=== PATIENT | female | born 1950 | race Caucasian/White ===

== ENCOUNTER 2017-05-20 18:59 | Inpatient (IN) | payer MEDICARE ==
[2017-05-20] VITALS (7 sets, daily range): BP systolic 94–127; BP diastolic 50–64; PULSE 81–89; RESP 28; TEMP 98–99.3; O2SAT 95–98
[~2017-05-20] VITALS: Ht 157.5 cm; Wt 130.5 kg
[2017-05-20] MEDS ORDERED: SODIUM CHLORIDE 0.9% FLUSH 5 ML FLUSH IV FLUSH PRN (19:30)
[2017-05-20] MEDS ORDERED: NALOXONE HCL 0.4 MG/ML AMP IV PUSH PRN (19:30)
[2017-05-20] MEDS ORDERED: PIPERACIL-TAZO 4.5 GM PREMIX 100 ML IV ONE (19:30)
[2017-05-20] MEDS ORDERED: SODIUM CHLORID 0.9% 500 ML INJ 500 ML IV ONE ×2 (19:30)
[2017-05-20] MEDS ORDERED: LISI10TA PO (19:32)
[2017-05-20] MEDS ORDERED: GLIM1TAB PO (19:32)
[2017-05-20] MEDS ORDERED: METF1000 PO (19:32)
[2017-05-20] MEDS ORDERED: NOVOLOGMXP SQ (19:34)
--- NOTE | 2017-05-20 19:34 | PD ---
HPI Chief Complaint: Altered Mental Status Time Seen by Provider: 19:28 Travel History International Travel<30 days: No Contact w/Intl Traveler<30days: No Traveled to known affect area: No History of Present Illness HPI 66-year-old female presents to the emergency department by EMS transport from her residence. Patient is confused. Patient is lethargic. Patient reportedly was recently seen today at an urgent care and received an injection for low back pain. Patient here denies head pain chest pain shortness of breath abdominal pain or extremity pain. Patient does complain of low back pain. at bedside states that they're visiting from out of state for the past 3 months and will be returning back to their home state in the week. reports patient has chronic low back pain but this exacerbated over the last 24 hours starting yesterday morning. Patient was seen earlier today by her chiropractor for an adjustment and then was referred to an urgent care. Patient reportedly had a fever at the chiropractor's office and felt cold and clammy. At the urgent care patient was evaluated and reportedly had an injection of a nonsteroidal medication as she is diabetic and he did not want to give her a steroid injection. Patient went home about 1:00 PM she was drowsy so sat down in a chair and fell asleep according to the . He tried to awaken her at 4:30 and noticed that she was confusional and lethargic. He attempted to continue to awaken her over the next 2-3 hours and because she was not improving decided finally to call EMS to transport her to the emergency room. Patient and spouse denied any recent injury or fall. Patient was ambulatory this morning but this evening has difficulty elevating her lower extremities. There is been no report of any bladder or bowel incontinence or dysfunction. Patient's blood sugar in the emergency department was 179. Patient has history of hypertension dyslipidemia diabetes and chronic back pain. Patient is unable to relay all of her medications but takes no blood thinning agents and does not know her medications. Both patient and spouse tonight patient being on any narcotic medication or antianxiety or muscle relaxant medications. [facility] Past Medical History Narrative Medical Diabetes hypertension dyslipidemia no tobacco use ; nursing notes reviewed Diabetes: Yes Patient Takes Glucophage: Yes Hypertension: Yes Tetanus Vaccination: Unknown Influenza Vaccination: No Past Surgical History Section: Yes Social History Alcohol Use: No Tobacco Use: No Substance Use: No Allergies-Medications (Allergen,Severity, Reaction): Coded Allergies: No Known Allergies (Unverified , 05/20/17) Reported Meds & Prescriptions Reported Meds & Active Scripts Active Reported Novolog Mix 70-30 Inj (Insulin Aspart Prota 70%/Aspart 30%) 1,000 Unit/10 Ml Vial Unknown Dose SQ BIDAC Glimepiride 1 Mg Tab Unknown Dose PO DAILY Take with breakfast or first main meal Lisinopril-Hctz 10-12.5 Mg Tab Unknown Dose PO DAILY Metformin (Metformin HCl) 1,000 Mg Tab Unknown Dose PO BIDPC Review of Systems Except as stated in HPI: all other systems reviewed are Neg General / Constitutional: Positive: Fever, Chills (fever) HENT: No: Headaches, Congestion, Neck Pain Cardiovascular: No: Chest Pain or Discomfort Respiratory: No: Cough, Shortness of Breath Gastrointestinal: No: Vomiting, Diarrhea, Abdominal Pain Genitourinary: No: Dysuria, Incontinence Musculoskeletal: Positive: Weakness (bilateral lower extremities), Pain (low back pain) Skin: No Rash Neurologic: Positive: Weakness, Change in Mentation, Slurred Speech, No: Dizziness, Syncope, Focal Abnormalities, Coordination Problem, Headache, Seizures Psychiatric: No: Anxiety Hematologic/Lymphatic: No: Easy Bruising Physical Exam Narrative GENERAL: Well-developed morbidly obese female in mild respiratory distress somnolent; gcs 13-14 SKIN: Warm and dry. Left lower leg erythema mild increased warmth --"her normal " per spouse at bedside HEAD: Atraumatic. Normocephalic. EYES: Pupils equal and round reactive to light symmetrically. Extraocular muscles intact. No scleral icterus. No injection or drainage. ENT: No nasal bleeding or discharge. Mucous membranes pink and moist. NECK: Trachea midline. No JVD. No meningismus no nuchal rigidity. CARDIOVASCULAR: Regular rate and rhythm. RESPIRATORY: No accessory muscle use. Clear to auscultation. Breath sounds equal bilaterally. Increased respiratory rate. GASTROINTESTINAL: Abdomen soft, non-tender, nondistended. Hepatic and splenic margins not palpable. Exam limited by abdominal girth. MUSCULOSKELETAL: Extremities without clubbing, cyanosis, or edema. No obvious deformities. NEUROLOGICAL: Awake and alert. No obvious cranial nerve deficits. Motor grossly within normal limits. Five out of 5 muscle strength in the arms and bilateral lower extremity weakness 3 over 5 bilateral lower extremity motor strength. Sensory exam bilateral arms and legs grossly intact. No pronator drift. Normal speech. Data Data Last Documented VS Vital Signs Date Time Temp Pulse Resp B/P (MAP) Pulse Ox O2 Delivery O2 Flow Rate FiO2 05/20/17 21:22 99.3 82 28 127/64 (85) 96 Nasal Cannula 2.00 Orders Orders Electrocardiogram (05/20/17:) Ammonia (05/20/17:) Complete Blood Count With Diff (05/20/17:) Comprehensive Metabolic Panel (05/20/17) Creatine Kinase (Cpk) (05/20/17:) Prothrombin Time / Inr (Pt) (05/20/17) Act Partial Throm Time (Ptt) (05/20/17) Troponin I (05/20/17) Thyroid Stimulating Hormone (05/20/17:) Urinalysis - C+S If Indicated (05/20/17:) Lactic Acid Sepsis Protocol (05/20/17:29) Arterial Blood Gas (Abg) (05/20/17:29) Blood Culture (05/20/17:) Chest, Single Ap (05/20/17:29) Ct Brain W/O Iv Contrast(Rout) (05/20/17:29) Blood Glucose (05/20/17:29) Ecg Monitoring (05/20/17:) Iv Access Insert/Monitor (05/20/17:) Oximetry (05/20/17:) Sodium Chloride 0.9% Flush (Ns Flush) (05/20/17 19:30) Drug Screen, Random Urine (05/20/17:29) Alcohol (Ethanol) (05/20/17:) Tylenol (Acetaminophen) (05/20/17:) Salicylates (Aspirin) (05/20/17:29) Sodium Chlorid 0.9% 500 Ml Inj (Ns 500 M (05/20/17 19:30) Sodium Chlorid 0.9% 500 Ml Inj (Ns 500 M (05/20/17 19:30) Urinary Catheter Insert/Apply (05/20/17 19:29) Piperacil-Tazo 4.5 Gm Premix (Zosyn 4.5 (05/20/17 19:30) Naloxone Inj (Narcan Inj) (05/20/17 19:30) B-Type Natriuretic Peptide (05/20/17 20:29) Calcium Gluconate Inj (Calcium Gluconate (05/20/17 21:00) Free Thyroxine (T4) (05/20/17 20:56) Free T3 (05/20/17 20:56) Beta Hydroxybutyrate (Acetone) (05/20/17 20:56) Sodium Chlor 0.9% 1000 Ml Inj (Ns 1000 M (05/20/17 21:15) Labs Laboratory Tests Test 05/20/17 19:35 05/20/17 20:01 05/20/17 20:28 White Blood Count 16.3 TH/MM3 Red Blood Count 4.10 MIL/MM3 Hemoglobin 11.8 GM/DL Hematocrit 36.9 % Mean Corpuscular Volume 90.2 FL Mean Corpuscular Hemoglobin 28.7 PG Mean Corpuscular Hemoglobin Concent 31.9 % Red Cell Distribution Width 16.7 % Platelet Count 149 TH/MM3 Mean Platelet Volume 10.8 FL CBC Comment AUTO DIFF Differential Total Cells Counted 100 Neutrophils % (Manual) 87 % Band Neutrophils % 13 % Neutrophils # (Manual) 16.3 TH/MM3 Differential Comment FINAL DIFF MANUAL Prothrombin Time 11.2 SEC Prothromb Time International Ratio 1.0 RATIO Activated Partial Thromboplast Time 30.8 SEC Blood Urea Nitrogen 52 MG/DL Creatinine 2.74 MG/DL Random Glucose 184 MG/DL Total Protein 6.8 GM/DL Albumin 2.7 GM/DL Calcium Level 9.4 MG/DL Alkaline Phosphatase 51 U/L Aspartate Amino Transf (AST/SGOT) 35 U/L Alanine Aminotransferase (ALT/SGPT) 58 U/L Total Bilirubin 0.4 MG/DL Sodium Level 135 MEQ/L Potassium Level 6.1 MEQ/L Chloride Level 102 MEQ/L Carbon Dioxide Level 22.7 MEQ/L Anion Gap 10 MEQ/L Estimat Glomerular Filtration Rate 17 ML/MIN Lactic Acid Level 2.7 mmol/L Ammonia 14 MCMOL/L Total Creatine Kinase 181 U/L Troponin I LESS THAN 0.02 NG/ML Thyroid Stimulating Hormone 3rd Gen 4.820 uIU/ML Salicylates Level LESS THAN 1.7 MG/DL Acetaminophen Level LESS THAN 2.0 MCG/ML Ethyl Alcohol Level LESS THAN 3 MG/DL Urine Color DARK-YELLOW Urine Turbidity HAZY Urine pH 5.0 Urine Specific [place] 1.025 Urine Protein 30 mg/dL Urine Glucose (UA) TRACE mg/dL Urine Ketones TRACE mg/dL Urine Occult Blood NEG Urine Nitrite NEG Urine Bilirubin NEG Urine Urobilinogen 2.0 MG/DL Urine Leukocyte Esterase NEG Urine RBC LESS THAN 1 /hpf Urine WBC 4 /hpf Urine Squamous Epithelial Cells 1 /hpf Urine Hyaline Casts 4 /lpf Urine Mucus FEW /lpf Microscopic Urinalysis Comment CATH-CULT NOT IND Urine Opiates Screen NEG Urine Barbiturates Screen NEG Urine Amphetamines Screen NEG Urine Benzodiazepines Screen NEG Urine Cocaine Screen NEG Urine Cannabinoids Screen NEG MDM Medical Decision Making Medical Screen Exam Complete: Yes Emergency Medical Condition: Yes Medical Record Reviewed: Yes Interpretation(s) EKG: Normal sinus rhythm rate 83 QS inferiorly age-indeterminate no acute ST elevation or ischemic changes or ectopy noted Last Impressions Head CT 05/20/[id number] Signed Impressions: Service Date/Time: Saturday, May 20, 2017 19:55 - CONCLUSION: 1. No acute findings. Retention cyst right maxillary sinus. Jakob Scruggs MD Chest X-Ray 05/20/171928 Signed Impressions: Service Date/Time: Saturday, May 20, 2017 20:29 - CONCLUSION: 1. Cardiomegaly. Mild basilar atelectasis. Jakob Scruggs MD Vital Signs Date Time Temp Pulse Resp B/P (MAP) Pulse Ox O2 Delivery O2 Flow Rate FiO2 05/20/17 20:16 84 28 116/54 (74) 96 Nasal Cannula 2.00 05/20/17 19:43 89 28 104/53 (70) 98 Nasal Cannula 2.00 05/20/17 19:34 97 Nasal Cannula 2.00 05/20/17 19:23 83 28 94/50 (65) 95 Room Air 05/20/17 19:10 98.0 84 28 106/53 (70) 96 Differential Diagnosis Altered mental status, CVA, sepsis, NE, substance ingestion, diabetic/metabolic encephalopathy, thyroid dysfunction/myxedema Narrative Course Bedside glucose 179; patient administered 500 cc bolus with repeat 1; at bedside states patient has been somnolent and weak like this since 4 PM after going to bed at 1 AM Chest x-ray reveals no lobar infiltrate; positive cardiomegaly CT brain noncontrast reveals no acute abnormalities per reading radiologist CBC is automated differential patient with leukocytosis and 13% bands; lactic acid 2.7, elevated; ABG pH 7.93131 35 PO2 7690% sounds bicarbonate 19 with base excess -5 Metabolic panel remarkable for renal insufficiency with hyperkalemia of 6.1 Serum ammonia 14, not elevated TSH mildly elevated, 4.820 At 9:34 PM GCS 14 - 15 Discussed with non garment sewing machine operator for admission Sepsis Criteria SIRS Criteria (2 or more): RR > 20 or PaCO2 < 32, WBC > 68257, < 4000 or > 10 % bands Severe Sepsis (+one): Lactate >2 Physician Communication Physician Communication discussed with non garment sewing machine operator Dr Dia -will see in the ED Diagnosis Primary Impression: Altered mental status Qualified Codes: R41.82 - Altered mental status, unspecified Additional Impressions: Acute renal failure Qualified Codes: N17.9 - Acute kidney failure, unspecified Hypercalcemia Diabetes SIRS (systemic inflammatory response syndrome) Admitting Information Admitting Physician Requests: Admit Nery Fontaine MD May 20, 2017 19:34
--- NOTE | 2017-05-20 20:06 | RADRPT ---
EXAM DATE/TIME: 05/20/2017 20:29 [facility] COMPARISON: No previous studies available for comparison. INDICATIONS : Syncopal episode and shortness of breath. MEDICAL HISTORY : None. SURGICAL HISTORY : None. ENCOUNTER: Initial ACUITY: 1 day PAIN SCORE: Non-responsive. LOCATION: chest FINDINGS: A single view of the chest demonstrates the lungs to be symmetrically aerated without evidence of mas s, infiltrate or effusion. Mild basilar atelectasis. The cardiomediastinal contours are prominent. O sseous structures are intact. CONCLUSION: 1. Cardiomegaly. Mild basilar atelectasis. Jakob cSruggs MD on May 20, 2017 at 20:04 Board Certified Radiologist. This report was verified electronically.
[2017-05-20 20:16] LABS: HEMATOCRIT 36.9 % (35.0-46.0); MEAN CELL VOLUME 90.2 FL (80.0-100.0); MEAN CORPUSCULAR HEMOGLOBIN 28.7 PG (27.0-34.0); MEAN CORPUSCULAR HGB CONC 31.9 % (32.0-36.0); PLATELET COUNT 149 TH/MM3 (150-450); RED CELL DISTRIBUTION WIDTH 16.7 % (11.6-17.2); WHITE BLOOD COUNT 16.3 TH/MM3 (4.0-11.0)
[2017-05-20 20:17] LABS: BLOOD GAS BASE EXCESS -4.7 mmol/L (-2-2); BLOOD GAS CARBOXYHEMOGLOBIN 1.3 % (0-4); BLOOD GAS HCO3 20 mmol/L (22-26); BLOOD GAS METHEMOGLOBIN 0.7 % (0-2); BLOOD GAS O2 HGB SATURATION 93 % (90-100); BLOOD GAS OXYGEN CONTENT 15.6 Vol % (12.0-20.0); BLOOD GAS PCO2 35 mmHg (38-42); BLOOD GAS PO2 76 mmHG (61-120); BLOOD GAS TOTAL HGB 11.9 G/DL (12.0-16.0); CRITICAL VALUE NO; DRAW SITE LT RADIAL; LITER FLOW 2 L/M; NUMBER OF ARTERIAL PUNCTURES 3; OXYGEN DEVICE NASAL CANNULA; STAT YES; TEMP CORR TO 98.6; ULNAR PULSE PRESENT
[2017-05-20 20:25] LABS: HEMO FLAGS AUTO DIFF
--- NOTE | 2017-05-20 20:26 | RADRPT ---
EXAM DATE/TIME: 05/20/2017 19:55 [facility] COMPARISON: No previous studies available for comparison. INDICATIONS : Altered mental status; patient complains of short term memory loss. RADIATION DOSE: 35.41 CTDIvol (mGy) MEDICAL HISTORY : Hypertension. Diabetes mellitus type 2. SURGICAL HISTORY : section. ENCOUNTER: Initial ACUITY: 1 day PAIN SCALE: 0/10 LOCATION: cranial TECHNIQUE: Multiple contiguous axial images were obtained of the head. Using automated exposure control and adj ustment of the mA and/or kV according to patient size, radiation dose was kept as low as reasonably a chievable to obtain optimal diagnostic quality images. DICOM format image data is available electro nically for review and comparison. FINDINGS: CEREBRUM: The ventricles are normal for age. No evidence of midline shift, mass lesion, hemorrhage or acute in farction. No extra-axial fluid collections are seen. POSTERIOR FOSSA: The cerebellum and brainstem are intact. The 4th ventricle is midline. The cerebellopontine angle i s unremarkable. EXTRACRANIAL: The visualized portion of the orbits is intact. SKULL: The calvaria is intact. No evidence of skull fracture. CONCLUSION: 1. No acute findings. Retention cyst right maxillary sinus. Jakob Scruggs MD on May 20, 2017 at 20:23 Board Certified Radiologist. This report was verified electronically.
[2017-05-20 20:32] LABS: ANION GAP 10 MEQ/L (5-15)
[2017-05-20 20:33] LABS: APTT (PATIENT) 30.8 SEC (24.3-30.1); PROTHROMBIN TIME - PATIENT 11.2 SEC (9.8-11.6)
[2017-05-20 20:48] LABS: ALKALINE PHOSPHATASE 51 U/L (45-117); ALT (GPT) 58 U/L (10-53); AST (GOT) 35 U/L (15-37); BICARBONATE 22.7 MEQ/L (21.0-32.0); BLOOD UREA NITROGEN 52 MG/DL (7-18); CHLORIDE 102 MEQ/L (98-107); CREATINE KINASE 181 U/L (26-192); GLOMERULAR FILTRATION RATE 17 ML/MIN (>89); POTASSIUM 6.1 MEQ/L (3.5-5.1); SODIUM (NA) 135 MEQ/L (136-145); TOTAL BILIRUBIN ADULT 0.4 MG/DL (0.2-1.0)
[2017-05-20 20:51] LABS: ACETAMINOPHEN LESS THAN 2.0 MCG/ML (10.0-30.0); ALCOHOL LESS THAN 3 MG/DL (0-5)
[2017-05-20 20:57] LABS: BANDS 13 % (0-6); NEUTROPHIL # MANUAL DIFF 16.3 TH/MM3 (1.8-7.7); POLYS (SEG NEUTROPHILS) 87 % (16-70); SCAN/DIFF FINAL DIFF MANUAL; WBC DIFF SAMPLE 100
[2017-05-20] MEDS ORDERED: CALCIUM GLUCONATE INJ 1 GM in SODIUM CHLORIDE 0.9% INJ 100 ML IV ONE (21:00)
[2017-05-20 21:14] LABS: BLOOD, URINE NEG (NEG); GLUCOSE,URINE TRACE mg/dL (NEG); HYALINE CAST, URINE 4 /lpf (RARE); KETONE, URINE TRACE mg/dL (NEG); MUCUS URINE FEW /lpf (OCC); NITRITE,URINE NEG (NEG); SQUAMOUS EPITHELIAL CELL URINE 1 /hpf (0-5); URINE COLOR DARK-YELLOW (YELLW/STRAW)
[2017-05-20] MEDS ORDERED: SODIUM CHLOR 0.9% 1000 ML INJ 1,000 ML IV SCH ×2 (21:15→22:18)
[2017-05-20 21:19] LABS: COMMENT (UR) CATH-CULT NOT IND; CULTURE IF INDICATED CATH CULTURE NOT IND
[2017-05-20 21:41] LABS: BETA-HYDROXYBUTYRATE 0.53 MMOL/L (0.00-0.39); FREE T3 2.24 PG/ML (2.18-3.98); FREE T4 1.12 NG/DL (0.76-1.46)
[2017-05-20 22:02] LABS: LACTIC ACID GHOST NOT REPORTABLE
--- NOTE | 2017-05-20 22:17 | HHI.HP ---
HPI Service Critical Care Medicine Primary Care Physician No Primary Care Physician Admission Diagnosis AMS;ARF;SIRS;Hyperkalemia Diagnosis: Travel History International Travel<30 Days: No Contact w/Intl Traveler <30 Da: No Traveled to Known Affected Are: No History of Present Illness 66-year-old female presents confused and lethargic. Patient reportedly was recently seen today at an urgent care and received an injection for low back pain. Patient here denies headaches, chest pain or shortness of breath, abdominal pain or extremity pain. Patient does complain of low back pain. at bedside states that they're visiting from out of state for the past 3 months and will be returning back to their home state in a week. reports patient has chronic low back pain but this exacerbated over the last 24 hours starting yesterday morning. Patient was seen earlier today by her chiropractor for an adjustment and then was referred to an urgent care. Patient reportedly had a fever at the chiropractor's office and felt cold and clammy. At the urgent care patient was evaluated and reportedly had an injection of a nonsteroidal medication as she is diabetic and he did not want to give her a steroid injection. Patient went home about 1:00 PM she was drowsy so sat down in a chair and fell asleep according to the . He tried to awaken her at 4:30 and noticed that she was confusional and lethargic. He attempted to continue to awaken her over the next 2-3 hours and because she was not improving decided finally to call EMS to transport her to the emergency room. Patient and spouse denied any recent injury or fall. Patient was ambulatory this morning but this evening has difficulty elevating her lower extremities as well as she was generally extremely weak. Review of Systems Constitutional: COMPLAINS OF: Fatigue, Fever, Chills, Dizziness, DENIES: Diaphoretic episodes, Weight gain, Weight loss, Change in appetite, Night Sweats Endocrine: DENIES: Abnorml menstrual pattern, Heat/cold intolerance, Polydipsia , Polyuria, Polyphagia Eyes: DENIES: Blurred vision, Diplopia, Eye inflammation, Eye pain, Vision loss , Photosensitivity, Double Vision Ears, nose, mouth, throat: DENIES: Tinnitus, Hearing loss, Vertigo, Nasal discharge, Oral lesions, Throat pain, Hoarseness, Ear Pain, Running Nose, Epistaxis, Sinus Pain, Toothache, Odynophagia Respiratory: DENIES: Apneas, Cough, Snoring, Wheezing, Hemoptysis, Sputum production, Shortness of breath Cardiovascular: DENIES: Chest pain, Palpitations, Syncope, Dyspnea on Exertion , PND, Lower Extremity Edema, Orthopnea, Claudication Gastrointestinal: DENIES: Abdominal pain, Black stools, Bloody stools, Constipation, Diarrhea, Nausea, Vomiting, Difficulty Swallowing, Anorexia Genitourinary: DENIES: Abnormal vaginal bleeding, Dysmenorrhea, Dyspareunia, Sexual dysfunction, Urinary frequency, Urinary incontinence, Urgency, Hematuria , Dysuria, Nocturia, Vaginal discharge Musculoskeletal: DENIES: Joint pain, Muscle aches, Stiffness, Joint Swelling, Back pain, Neck pain Integumentary: DENIES: Abnormal pigmentation, Pruritus, Rash, Nail changes, Breast masses, Breast skin changes, Nipple discharge Hematologic/lymphatic: DENIES: Bruising, Lymphadenopathy Immunologic/allergic: DENIES: Eczema, Urticaria Neurologic: DENIES: Abnormal gait, Headache, Localized weakness, Paresthesias, Seizures, Speech Problems, Tremor, Poor Balance Psychiatric: DENIES: Anxiety, Confusion, Mood changes, Depression, Hallucinations, Agitation, Suicidal Ideation, Homicidal Ideation, Delusions Past Family Social History Allergies: Coded Allergies: No Known Allergies (Unverified , 05/20/17) Past Medical History Diabetes Dyslipidemia Hypertension Past Surgical History Reported Medications Reported Meds & Active Scripts Active Reported Novolog Mix 70-30 Inj (Insulin Aspart Prota 70%/Aspart 30%) 1,000 Unit/10 Ml Vial Unknown Dose SQ BIDAC Glimepiride 1 Mg Tab Unknown Dose PO DAILY Take with breakfast or first main meal Lisinopril-Hctz 10-12.5 Mg Tab Unknown Dose PO DAILY Metformin (Metformin HCl) 1,000 Mg Tab Unknown Dose PO BIDPC Active Ordered Medications Current Medications Medications (Trade) Dose Ordered Sig/Erasmo Route PRN Reason Start Time Stop Time Status Last Admin Dose Admin Naloxone HCl (Narcan Inj) 0.4 mg UNSCH X1 PRN IV PUSH RESP DEPRESSION OR HYPOTENSION 05/20/17 19:30 Sodium Chloride 1,000 ml @ 500 mls/hr Q2H IV 05/20/17 21:15 05/20/17 21:22 Sodium Chloride 1,000 ml @ 175 mls/hr [id number] IV 05/20/17 22:18 Sodium Chloride (NS Flush) 2 ml UNSCH PRN IV FLUSH FLUSH AFTER USING IV ACCESS 05/20/17 22:30 Sodium Chloride (NS Flush) 2 ml BID IV FLUSH 05/21/17 09:00 Famotidine (Pepcid Inj) 10 mg Q12HR IV PUSH 05/21/17 09:00 Albuterol/ Ipratropium (Duoneb Neb) 1 ampule Q2HR NEB PRN NEB WHEEZING 05/20/17 22:30 Heparin Sodium (Porcine) (Heparin Inj) 5,000 units Q8H SQ 05/20/17 22:00 05/20/17 23:08 Pharmacy Profile Note 0 ml @ 0 mls/hr UNSCH OTHER 05/20/17 22:30 Miscellaneous Information 1 [id number] XX 05/20/17 22:30 Chlorhexidine Gluconate (Chlorhexidine 2% Cloth) 3 pack Taper DAILY@04 TOP 05/21/17 04:00 05/17/18 03:59 Chlorhexidine Gluconate (Chlorhexidine 2% Cloth) 3 pack UNSCH PRN [facility] 05/20/17 22:30 Dextrose (D50w (Vial) Inj) 50 ml UNSCH PRN IV PUSH HYPOGLYCEMIA-SEE COMMENTS 05/20/17 22:30 Glucagon (Glucagon Inj) 1 mg UNSCH PRN OTHER HYPOGLYCEMIA-SEE COMMENTS 05/20/17 22:30 Vancomycin HCl 2000 mg/Sodium Chloride 520 ml @ 250 mls/hr NOW ONCE IV 05/20/17 23:00 05/21/17 01:04 Cefepime HCl 2000 mg/Sodium Chloride 100 ml @ 200 mls/hr Q24H IV 05/21/17 00:00 Family History No family history of early coronary artery disease or malignancy Social History Negative for tobacco, alcohol, or illicit drug abuse Physical Exam Vital Signs Vital Signs Date Time Temp Pulse Resp B/P (MAP) Pulse Ox O2 Delivery O2 Flow Rate FiO2 05/20/17 21:22 99.3 82 28 127/64 (85) 96 Nasal Cannula 2.00 05/20/17 20:16 84 28 116/54 (74) 96 Nasal Cannula 2.00 05/20/17 19:43 89 28 104/53 (70) 98 Nasal Cannula 2.00 05/20/17 19:34 97 Nasal Cannula 2.00 05/20/17 19:23 83 28 94/50 (65) 95 Room Air 05/20/17 19:10 98.0 84 28 106/53 (70) 96 Physical Exam GENERAL: Morbidly obese, lethargic, tachypneic. SKIN: Warm and dry. HEAD: Normocephalic. EYES: No scleral icterus. No injection or drainage. NECK: Supple, trachea midline. No JVD or lymphadenopathy. CARDIOVASCULAR: Regular rate and rhythm without murmurs, gallops, or rubs. RESPIRATORY: Breath sounds equal bilaterally. No accessory muscle use. GASTROINTESTINAL: Abdomen soft, non-tender, nondistended. MUSCULOSKELETAL: No cyanosis, or edema. BACK: Tender in the lumbar region however without obvious deformity. NEURO EXAM: GCS: M 6 V 5 E 3 Mental Status: The patient is alert and oriented to person, place, and time with normal speech. Lethargic but arousable Cranial Nerves: Visual acuity intact bilaterally. Visual hogue normal in all quadrants. Pupils are round, reactive to light. Extraocular movements are intact without ptosis. Hearing is normal bilaterally. Voice is normal. Tongue protrudes midline and moves symmetrically. Reflexes: Biceps, patellar, and Achilles are 2/4 bilaterally. No clonus. Laboratory Laboratory Tests Test 05/20/17 19:35 05/20/17 20:01 05/20/17 20:28 White Blood Count 16.3 Red Blood Count 4.10 Hemoglobin 11.8 Hematocrit 36.9 Mean Corpuscular Volume 90.2 Mean Corpuscular Hemoglobin 28.7 Mean Corpuscular Hemoglobin Concent 31.9 Red Cell Distribution Width 16.7 Platelet Count 149 Mean Platelet Volume 10.8 CBC Comment AUTO DIFF Differential Total Cells Counted 100 Neutrophils % (Manual) 87 Band Neutrophils % 13 Neutrophils # (Manual) 16.3 Differential Comment FINAL DIFF MANUAL Prothrombin Time 11.2 Prothromb Time International Ratio 1.0 Activated Partial Thromboplast Time 30.8 Blood Urea Nitrogen 52 Creatinine 2.74 Random Glucose 184 Total Protein 6.8 Albumin 2.7 Calcium Level 9.4 Alkaline Phosphatase 51 Aspartate Amino Transf (AST/SGOT) 35 Alanine Aminotransferase (ALT/SGPT) 58 Total Bilirubin 0.4 Sodium Level 135 Potassium Level 6.1 Chloride Level 102 Carbon Dioxide Level 22.7 Anion Gap 10 Estimat Glomerular Filtration Rate 17 Lactic Acid Level 2.7 Ammonia 14 Total Creatine Kinase 181 Troponin I LESS THAN 0.02 B-Type Natriuretic Peptide 71 Free Thyroxine 1.12 Free Triiodothyronine (T3) pg/dL 2.24 Thyroid Stimulating Hormone 3rd Gen 4.820 Salicylates Level LESS THAN 1.7 Acetaminophen Level LESS THAN 2.0 Ethyl Alcohol Level LESS THAN 3 B-Hydroxybutyrate 0.53 Urine Color DARK-YELLOW Urine Turbidity HAZY Urine pH 5.0 Urine Specific [place] 1.025 Urine Protein 30 Urine Glucose (UA) TRACE Urine Ketones TRACE Urine Occult Blood NEG Urine Nitrite NEG Urine Bilirubin NEG Urine Urobilinogen 2.0 Urine Leukocyte Esterase NEG Urine RBC LESS THAN 1 Urine WBC 4 Urine Squamous Epithelial Cells 1 Urine Hyaline Casts 4 Urine Mucus FEW Microscopic Urinalysis Comment CATH-CULT NOT IND Urine Opiates Screen NEG Urine Barbiturates Screen NEG Urine Amphetamines Screen NEG Urine Benzodiazepines Screen NEG Urine Cocaine Screen NEG Urine Cannabinoids Screen NEG Date/Time Source Procedure Growth Status 05/20/17 19:35 Blood Peripheral Aerobic Blood Culture Pending Received 05/20/17 19:35 Blood Peripheral Anaerobic Blood Culture Pending Received Result Diagram: 05/20/17193405/20/171934 Imaging Last [address] 05/20/171928 Signed Impressions: Service Date/Time: Saturday, May 20, 2017 19:55 - CONCLUSION: 1. No acute findings. Retention cyst right maxillary sinus. Jakob Scruggs MD Chest X-Ray 05/20/171928 Signed Impressions: Service Date/Time: Saturday, May 20, 2017 20:29 - CONCLUSION: 1. Cardiomegaly. Mild basilar atelectasis. Jakob Scruggs MD Caprini VTE Risk Assessment Caprini VTE Risk Assessment: Mod/High Risk (score >= 2) Caprini Risk Assessment Model Point Value = 1 Point Value = 2 Point Value = 3 Point Value = 5 Age 41-60 Minor surgery BMI > 25 kg/m2 Swollen legs Varicose veins or History of unexplained or recurrent spontaneous Oral contraceptives or hormone replacement Sepsis (< 1 month) Serious lung disease, including pneumonia (< 1 month) Abnormal pulmonary function Acute myocardial infarction Congestive heart failure (< 1 month) History of inflammatory bowel disease Medical patient at bed rest Age 61-74 Arthroscopic surgery Major open surgery (> 45 min) Laparoscopic surgery (> 45 min) Malignancy Confined to bed (> 72 hours) Immobilizing plaster cast Central venous access Age >= 75 History of VTE Family history of VTE Factor V Leiden Prothrombin [id number] Lupus anticoagulant Anticardiolipin antibodies Elevated serum homocysteine Heparin-induced thrombocytopenia Other congenital or acquired thrombophilia Stroke (< 1 month) Elective arthroplasty Hip, pelvis, or leg fracture Acute spinal cord injury (< 1 month) Prophylaxis Regimen Total Risk Factor Score Risk Level Prophylaxis Regimen 0-1 Low Early ambulation 2 Moderate Order ONE of the following: *Sequential Compression Device (SCD) *Heparin 5000 units SQ BID 3-4 Higher Order ONE of the following medications: *Heparin 5000 units SQ TID *Enoxaparin/Lovenox 40 mg SQ daily (WT < 150 kg, CrCl > 30 mL/min) *Enoxaparin/Lovenox 30 mg SQ daily (WT < 150 kg, CrCl > 10-29 mL/min) *Enoxaparin/Lovenox 30 mg SQ BID (WT < 150 kg, CrCl > 30 mL/min) AND/OR *Sequential Compression Device (SCD) 5 or more Highest Order ONE of the following medications: *Heparin 5000 units SQ TID (Preferred with Epidurals) *Enoxaparin/Lovenox 40 mg SQ daily (WT < 150 kg, CrCl > 30 mL/min) *Enoxaparin/Lovenox 30 mg SQ daily (WT < 150 kg, CrCl > 10-29 mL/min) *Enoxaparin/Lovenox 30 mg SQ BID (WT < 150 kg, CrCl > 30 mL/min) AND *Sequential Compression Device (SCD) Assessment and Plan Assessment and Plan SIRS - Broad-spectrum antibiotics - Panculture - De-escalate per sensitivity - IV hydration Hypotension - Volume depleted - Aggressive IV fluid replacement - Telemetry - Hold lisinopril Acute kidney injury - Unknown baseline - IV hydration - Strict I's and O's - Monitor trend of creatinine and electrolytes Diabetes - Hold home meds - Insulin sliding scale DVT GI prophylaxis - Teds SCDs - Subcutaneous heparin - Pepcid Critical Care: The total critical care time was 35 minutes. Time to perform other separately billable procedures was not included in the critical care time. Francisco Dia MD May 20, 2017 22:17
[2017-05-20] MEDS ORDERED: SODIUM CHLOR 0.9% 1000 ML INJ 1,000 ML IV ONE ×2 (22:18)
[2017-05-20] MEDS ORDERED: SODIUM CHLOR 0.9% 1000 ML INJ 100 ML IV ONE (22:18)
[2017-05-20] MEDS ORDERED: MISCELLANEOUS NURSING INFORMATION XX SCH (22:30)
[2017-05-20] MEDS ORDERED: DEXTROSE 50% IN WATER 50 ML VIAL(D50) IV PUSH PRN (22:30)
[2017-05-20] MEDS ORDERED: RESP: ALBUTEROL 2.5 MG/IPRATROPIUM 0.5 MG NEB (PRN) NEB (22:30)
[2017-05-20] MEDS ORDERED: GLUCAGON 1 MG/ML VIAL OTHER PRN (22:30)
[2017-05-20] MEDS ORDERED: CEFEPIME INJ 2,000 MG in SODIUM CHLORIDE 0.9% INJ 100 ML IV SCH (22:30)
[2017-05-20] MEDS ORDERED: SODIUM CHLORIDE 0.9% FLUSH 10 ML FLUSH IV FLUSH PRN (22:30)
[2017-05-20] MEDS ORDERED: Vancomycin Consult Pharmacy 1 EA OTHER SCH (22:30)
[2017-05-20] MEDS ORDERED: CHLORHEXIDINE GLUCONATE 2 % 1 PACK (2 CLOTHS) TOP PRN (22:30)
[2017-05-20] MEDS ORDERED: VANCOMYCIN INJ 1,000 MG in SODIUM CHLOR 0.9% 250 ML INJ 250 ML IV SCH (22:30)
[2017-05-20] MEDS ORDERED: VANCOMYCIN INJ 2,000 MG in SODIUM CHLORID 0.9% 500 ML INJ 500 ML IV ONE (23:00)
[2017-05-20] MEDS: HEPARIN SODIUM - SQ 10,000 UNITS/ML VIAL SQ SCH (23:08)
[2017-05-21] VITALS (34 sets, daily range): BP systolic 132–145; BP diastolic 61–71; PULSE 84–98; RESP 20–28; TEMP 97.9–99.3; O2SAT 90–99
[2017-05-21] MEDS ORDERED: ACETAMINOPHEN 325 MG TAB PO PRN (01:30)
[2017-05-21] MEDS: CEFEPIME 2000 MG/NS 100 ML IV SCH ×2 (03:12)
[2017-05-21] MEDS: CHLORHEXIDINE GLUCONATE 2 % 1 PACK (2 CLOTHS) TOP SCH (04:00)
[2017-05-21 05:12] LABS: AUTOMATED NEUTROPHIL # 9.8 TH/MM3 (1.8-7.7); BASOPHIL % 0.3 % (0.0-2.0); EOSINOPHIL # 0.1 TH/MM3 (0-0.4); EOSINOPHIL % 0.7 % (0.0-4.0); HEMATOCRIT 35.7 % (35.0-46.0); LYMPH % 1.9 % (9.0-44.0); LYMPHOCYTE # 0.2 TH/MM3 (1.0-4.8); MEAN CELL VOLUME 90.6 FL (80.0-100.0); MEAN CORPUSCULAR HEMOGLOBIN 29.3 PG (27.0-34.0); MEAN CORPUSCULAR HGB CONC 32.4 % (32.0-36.0); MONO % 2.4 % (0.0-8.0); NEUT % 94.7 % (16.0-70.0); PLATELET COUNT 117 TH/MM3 (150-450); RED BLOOD COUNT 3.94 MIL/MM3 (4.00-5.30); RED CELL DISTRIBUTION WIDTH 16.3 % (11.6-17.2); WHITE BLOOD COUNT 10.4 TH/MM3 (4.0-11.0)
[2017-05-21 05:35] LABS: HEMO FLAGS AUTO DIFF
[2017-05-21 05:43] LABS: ALKALINE PHOSPHATASE 61 U/L (45-117); ALT (GPT) 59 U/L (10-53); ANION GAP 10 MEQ/L (5-15); AST (GOT) 42 U/L (15-37); BICARBONATE 17.7 MEQ/L (21.0-32.0); BLOOD UREA NITROGEN 49 MG/DL (7-18); CHLORIDE 110 MEQ/L (98-107); GLOMERULAR FILTRATION RATE 27 ML/MIN (>89); MAGNESIUM 1.7 MG/DL (1.5-2.5); POTASSIUM 5.1 MEQ/L (3.5-5.1); SODIUM (NA) 138 MEQ/L (136-145); TOTAL BILIRUBIN ADULT 0.5 MG/DL (0.2-1.0)
[2017-05-21] MEDS ORDERED: MORPHINE SULFATE 4 MG/ML INJ ONE (05:49)
[2017-05-21] MEDS ORDERED: MORPHINE SULFATE 2 MG/ML INJ IV PUSH ONE (05:53)
[2017-05-21] MEDS ORDERED: methylPREDNISolone SOD SUCC 125 MG/2 ML VIAL IV PUSH ONE (06:15)
[2017-05-21] MEDS ORDERED: FUROSEMIDE 40 MG/4 ML VIAL ONE (06:20)
[2017-05-21] MEDS ORDERED: FUROSEMIDE 100 MG/10 ML VIAL IV PUSH ONE (06:30)
[2017-05-21 06:31] LABS: BLOOD GAS BASE EXCESS -7.8 mmol/L (-2-2); BLOOD GAS CARBOXYHEMOGLOBIN 1.2 % (0-4); BLOOD GAS HCO3 18 mmol/L (22-26); BLOOD GAS METHEMOGLOBIN 1.2 % (0-2); BLOOD GAS O2 HGB SATURATION 95 % (90-100); BLOOD GAS OXYGEN CONTENT 16.7 Vol % (12.0-20.0); BLOOD GAS PCO2 44 mmHg (38-42); BLOOD GAS PO2 112 mmHg (61-120); BLOOD GAS TOTAL HGB 12.4 G/DL (12.0-16.0); CRITICAL VALUE YES; TEMP CORR TO 98.6
[2017-05-21 06:32] LABS: DRAW SITE RT RADIAL; FIO2 45 %; NUMBER OF ARTERIAL PUNCTURES 1; STAT YES; ULNAR PULSE PRESENT
--- NOTE | 2017-05-21 06:44 | RADRPT ---
EXAM DATE/TIME: 05/21/2017 06:17 [facility] COMPARISON: CHEST SINGLE AP, May 20, 2017, 20:29. INDICATIONS : Respiratory failure. MEDICAL HISTORY : Hypertension. Diabetes mellitus type 2. SURGICAL HISTORY : section. ENCOUNTER: Subsequent ACUITY: 2 days PAIN SCORE: 1/10 LOCATION: Bilateral chest FINDINGS: A single AP semierect view of the chest was obtained. There is mild motion artifact and the tip of th e left costophrenic angle is cut off the exam. There are no confluent infiltrates or effusions identi fied. The bony thorax remains intact with overlying electrocardiogram leads. CONCLUSION: 1. Limited suboptimal study with motion artifact. 2. No definite acute cardiac pulmonary disease. Austin Orellana MD on May 21, 2017 at 6:42 Board Certified Radiologist. This report was verified electronically.
[2017-05-21] MEDS ORDERED: DEXTROSE 50% IN WATER 50 ML VIAL(D50) IV PUSH PRN (07:15)
[2017-05-21] MEDS ORDERED: GLUCAGON 1 MG/ML VIAL OTHER PRN (07:15)
[2017-05-21 07:21] LABS: BANDS 44 % (0-6); BASOPHILS 1 % (0-2); METAMYELOCYTES 2 % (0-1); MYELOCYTES 2 % (0-0); NEUTROPHIL # MANUAL DIFF 9.7 TH/MM3 (1.8-7.7); PLATELET ESTIMATE SMEAR LOW (NORMAL); PLATELET MORPHOLOGY NORMAL (NORMAL); POLYS (SEG NEUTROPHILS) 45 % (16-70); SCAN/DIFF FINAL DIFF MANUAL; WBC DIFF SAMPLE 100
[2017-05-21 07:22] LABS: TOXIC VACUOLATION PRESENT (NONE SEEN)
--- NOTE | 2017-05-21 07:29 | HHI.CCPN ---
Subjective Remarks/Hospital Course 66-year-old female presents confused and lethargic. Patient reportedly was recently seen today at an urgent care and received an injection for low back pain. Patient here denies headaches, chest pain or shortness of breath, abdominal pain or extremity pain. Patient does complain of low back pain. at bedside states that they're visiting from out of state for the past 3 months and will be returning back to their home state in a week. reports patient has chronic low back pain but this exacerbated over the last 24 hours starting yesterday morning. Patient was seen earlier today by her chiropractor for an adjustment and then was referred to an urgent care. Patient reportedly had a fever at the chiropractor's office and felt cold and clammy. At the urgent care patient was evaluated and reportedly had an injection of a nonsteroidal medication as she is diabetic and he did not want to give her a steroid injection. Patient went home about 1:00 PM she was drowsy so sat down in a chair and fell asleep according to the . He tried to awaken her at 4:30 and noticed that she was confusional and lethargic. He attempted to continue to awaken her over the next 2-3 hours and because she was not improving decided finally to call EMS to transport her to the emergency room. Patient and spouse denied any recent injury or fall. Patient was ambulatory this morning but this evening has difficulty elevating her lower extremities as well as she was generally extremely weak. 05/21 Patient is on BIPAP 07/04 with 45% FIO2. Afebrile. Awake. Renal function is improving with Cr: 1.87 from 2.74. Objective Vital Signs Date Time Temp Pulse Resp B/P (MAP) Pulse Ox O2 Delivery O2 Flow Rate FiO2 05/21/17 06:00 98 05/21/17 06:00 97 45 05/21/17 05:30 Simple Mask 8.00 05/21/17 04:00 98.9 24 140/66 (90) Intake and Output 05/21/17 05/21/17 05/22/17 08:00 16:00 00:00 Output Total 675 ml Balance -675 ml Result Diagram: 05/21/17 0338 05/21/17 0338 Other Results Laboratory Tests Test 05/20/17 19:35 05/20/17 20:01 05/20/17 20:28 05/20/17 22:25 White Blood Count 16.3 TH/MM3 Red Blood Count 4.10 MIL/MM3 Hemoglobin 11.8 GM/DL Hematocrit 36.9 % Mean Corpuscular Volume 90.2 FL Mean Corpuscular Hemoglobin 28.7 PG Mean Corpuscular Hemoglobin Concent 31.9 % Red Cell Distribution Width 16.7 % Platelet Count 149 TH/MM3 Mean Platelet Volume 10.8 FL CBC Comment AUTO DIFF Differential Total Cells Counted 100 Neutrophils % (Manual) 87 % Band Neutrophils % 13 % Neutrophils # (Manual) 16.3 TH/MM3 Differential Comment FINAL DIFF MANUAL Prothrombin Time 11.2 SEC Prothromb Time International Ratio 1.0 RATIO Activated Partial Thromboplast Time 30.8 SEC Blood Urea Nitrogen 52 MG/DL Creatinine 2.74 MG/DL Random Glucose 184 MG/DL Total Protein 6.8 GM/DL Albumin 2.7 GM/DL Calcium Level 9.4 MG/DL Alkaline Phosphatase 51 U/L Aspartate Amino Transf (AST/SGOT) 35 U/L Alanine Aminotransferase (ALT/SGPT) 58 U/L Total Bilirubin 0.4 MG/DL Sodium Level 135 MEQ/L Potassium Level 6.1 MEQ/L Chloride Level 102 MEQ/L Carbon Dioxide Level 22.7 MEQ/L Anion Gap 10 MEQ/L Estimat Glomerular Filtration Rate 17 ML/MIN Lactic Acid Level 2.7 mmol/L 2.6 mmol/L Ammonia 14 MCMOL/L Total Creatine Kinase 181 U/L Troponin I LESS THAN 0.02 NG/ML B-Type Natriuretic Peptide 71 PG/ML Free Thyroxine 1.12 NG/DL Free Triiodothyronine (T3) pg/dL 2.24 PG/ML Thyroid Stimulating Hormone 3rd Gen 4.820 uIU/ML Salicylates Level LESS THAN 1.7 MG/DL Acetaminophen Level LESS THAN 2.0 MCG/ML Ethyl Alcohol Level LESS THAN 3 MG/DL B-Hydroxybutyrate 0.53 MMOL/L Urine Color DARK-YELLOW Urine Turbidity HAZY Urine pH 5.0 Urine Specific [place] 1.025 Urine Protein 30 mg/dL Urine Glucose (UA) TRACE mg/dL Urine Ketones TRACE mg/dL Urine Occult Blood NEG Urine Nitrite NEG Urine Bilirubin NEG Urine Urobilinogen 2.0 MG/DL Urine Leukocyte Esterase NEG Urine RBC LESS THAN 1 /hpf Urine WBC 4 /hpf Urine Squamous Epithelial Cells 1 /hpf Urine Hyaline Casts 4 /lpf Urine Mucus FEW /lpf Microscopic Urinalysis Comment CATH-CULT NOT IND Urine Opiates Screen NEG Urine Barbiturates Screen NEG Urine Amphetamines Screen NEG Urine Benzodiazepines Screen NEG Urine Cocaine Screen NEG Urine Cannabinoids Screen NEG Test 05/20/17 23:30 05/21/17 03:38 05/21/17 06:13 White Blood Count 10.4 TH/MM3 Red Blood Count 3.94 MIL/MM3 Hemoglobin 11.6 GM/DL Hematocrit 35.7 % Mean Corpuscular Volume 90.6 FL Mean Corpuscular Hemoglobin 29.3 PG Mean Corpuscular Hemoglobin Concent 32.4 % Red Cell Distribution Width 16.3 % Platelet Count 117 TH/MM3 Mean Platelet Volume 10.7 FL Neutrophils (%) (Auto) 94.7 % Lymphocytes (%) (Auto) 1.9 % Monocytes (%) (Auto) 2.4 % Eosinophils (%) (Auto) 0.7 % Basophils (%) (Auto) 0.3 % Neutrophils # (Auto) 9.8 TH/MM3 Lymphocytes # (Auto) 0.2 TH/MM3 Monocytes # (Auto) 0.2 TH/MM3 Eosinophils # (Auto) 0.1 TH/MM3 Basophils # (Auto) 0.0 TH/MM3 CBC Comment AUTO DIFF Blood Urea Nitrogen 49 MG/DL Creatinine 1.87 MG/DL Random Glucose 183 MG/DL Total Protein 6.3 GM/DL Albumin 2.3 GM/DL Calcium Level 8.2 MG/DL Phosphorus Level 4.1 MG/DL Magnesium Level 1.7 MG/DL Alkaline Phosphatase 61 U/L Aspartate Amino Transf (AST/SGOT) 42 U/L Alanine Aminotransferase (ALT/SGPT) 59 U/L Total Bilirubin 0.5 MG/DL Sodium Level 138 MEQ/L Potassium Level 5.1 MEQ/L Chloride Level 110 MEQ/L Carbon Dioxide Level 17.7 MEQ/L Anion Gap 10 MEQ/L Estimat Glomerular Filtration Rate 27 ML/MIN B-Type Natriuretic Peptide 78 PG/ML Blood Gas Puncture Site RT RADIAL Blood Gas Patient Temperature 98.6 Blood Gas HCO3 18 mmol/L Blood Gas Base Excess -7.8 mmol/L Blood Gas Oxygen Saturation 95 % Arterial Blood pH 7.24 Arterial Blood Partial Pressure CO2 44 mmHg Arterial Blood Partial Pressure O2 112 mmHg Arterial Blood Oxygen Content 16.7 Vol % Arterial Blood Carboxyhemoglobin 1.2 % Arterial Blood Methemoglobin 1.2 % Blood Gas Hemoglobin 12.4 G/DL Oxygen Delivery Device BIPAP12/5/45% Blood Gas Inspired Oxygen 45 % Imaging Last Impressions Head CT 05/20/171928 Signed Impressions: Service Date/Time: Saturday, May 20, 2017 19:55 - CONCLUSION: 1. No acute findings. Retention cyst right maxillary sinus. Jakob Scruggs MD Chest X-Ray 05/20/171928 Signed Impressions: Service Date/Time: Saturday, May 20, 2017 20:29 - CONCLUSION: 1. Cardiomegaly. Mild basilar atelectasis. Jakob Scruggs MD Objective Remarks GENERAL: Patient is 66 yo on BIPAP. SKIN: Warm and dry. HEAD: Normocephalic. EYES: No scleral icterus. No injection or drainage. NECK: Supple, trachea midline. No JVD or lymphadenopathy. CARDIOVASCULAR: Regular rate and rhythm without murmurs, gallops, or rubs. RESPIRATORY: Breath sounds equal bilaterally. No accessory muscle use. GASTROINTESTINAL: Abdomen soft, non-tender, nondistended. MUSCULOSKELETAL: No cyanosis, or edema. BACK: Nontender without obvious deformity. No CVA tenderness. Neuro: Awake, responds to voice. A/P Assessment and Plan 1)Acute hypercapnic resp failure 2)JAMES..improving 3)Hyperkalemia...improving 4)Dehydration 5)Diabetes 6)Morbid obesity. 7)Elevated LFT 8)Thrombocytopenia Plan Neuro: Monitor neuro status, avoid sedatives Pulm: Continue with oxygen keep sat >92% Bronchodilators NIPPV for resp distress. Check ABG CV: Monitor HR and BP keep MAP>65mmHg Serial lactic acid monitoring. Continue with IVF : Monitor renal function, I/O's, avoid nephrotoxins Renal function is improving with Cr: 1.87 from 2.74 IVF-NS@84ml/hr. Give 1amp sodium bicarb. GI: Keep NPO for now. On Pepcid 10mg Q12 Monitor LFT's, check US liver ID: Continue with empiric abx ( Cefepime)monitor for signs of infections ( Fever , WBC) Follow up on blood and urine cxs Heme: Monitor CBC Endo: SSI with accuchecks GI prophylaxis- on Pepcid 10mg Q12 DVT prophylaxis- on Heparin SQ Level 3 Vero Alvarenga MD May 21, 2017 07:29
[2017-05-21] MEDS ORDERED: SODIUM BICARBONATE 8.4% INJ 50 MEQ/50 ML SYR IV PUSH ONE (08:00)
[2017-05-21] MEDS: INSULIN NovoLIN REGULAR SUPPLEMENTAL SCALE SQ SCH ×4 (08:00→20:00)
[2017-05-21] MEDS: SODIUM CHLORIDE 0.9% FLUSH 10 ML FLUSH IV FLUSH SCH ×2 (09:00→21:29)
[2017-05-21] MEDS: FAMOTIDINE 20 MG/2 ML VIAL IV PUSH SCH ×2 (09:00→21:29)
[2017-05-21] MEDS ORDERED: SODIUM BICARBONATE 8.4% INJ 50 ML ONE (09:38)
[2017-05-21] MEDS: RESP: ALBUTEROL 2.5 MG/IPRATROPIUM 0.5 MG NEB (SCH) NEB ×4 (10:59→23:32)
--- NOTE | 2017-05-21 11:34 | OTSOAPIP ---
TIME SESSION COMPLETED: 1130 AD [facility] REQUESTS TO HOLD ASSESSMENT DUE TO BREATHING STATUS. Therapist: Carolina Lopez OTR/L Signature on file
--- NOTE | 2017-05-21 12:50 | RADRPT ---
EXAM DATE/TIME: 05/21/2017 10:32 [facility] COMPARISON: No previous studies available for comparison. INDICATIONS : Elevated lab values. MEDICAL HISTORY : Hypertension. Diabetes. SURGICAL HISTORY : section. ENCOUNTER: Initial ACUITY: 1 day PAIN SCORE: 10/10 LOCATION: Right upper quadrant MEASUREMENTS: LIVER: 17.2 cm length COMMON DUCT: Non-visualized RIGHT KIDNEY: LIMITED VIEW SPLEEN: 12.9 cm length FINDINGS: LIVER: The liver is diffusely echogenic without focal lesion or ductal dilatation. COMMON DUCT: No intraluminal mass or stone visualized. GALLBLADDER: Do appear to be gallstones. Gallbladder wall is not thickened. PANCREAS: The visualized portions are within normal limits. RIGHT KIDNEY: The right kidney is incompletely evaluated. SPLEEN: Spleen is upper limits of normal for size. CONCLUSION: 1. Hepatic steatosis. 2. Gallstones 3. Limited evaluation of the right kidney. Santana Lamar MD on May 21, 2017 at 12:47 Board Certified Radiologist. This report was verified electronically.
--- NOTE | 2017-05-21 13:28 | EKG ---
Date Performed: 05/20/2017 Time Performed: 19:16:56 PTAGE: 66 years EKG: Sinus rhythm POSSIBLE INFERIOR MYOCARDIAL INFARCTION BORDERLINE ECG NO PREVIOUS TRACING DOCTOR: Waleska Sosa Interpretating Date/Time 05/21/2017 13:27:54
[2017-05-21 14:32] LABS: BLOOD GAS BASE EXCESS -8.3 mmol/L (-2-2); BLOOD GAS CARBOXYHEMOGLOBIN 1.3 % (0-4); BLOOD GAS HCO3 16 mmol/L (22-26); BLOOD GAS METHEMOGLOBIN 1.2 % (0-2); BLOOD GAS O2 HGB SATURATION 92 % (90-100); BLOOD GAS OXYGEN CONTENT 20.2 Vol % (12.0-20.0); BLOOD GAS PCO2 32 mmHg (38-42); BLOOD GAS PO2 82 mmHg (61-120); BLOOD GAS TOTAL HGB 15.5 G/DL (12.0-16.0); TEMP CORR TO 98.6
[2017-05-21 14:33] LABS: CRITICAL VALUE YES; DRAW SITE RT RADIAL; FIO2 50 %; LITER FLOW 6 L/M; NUMBER OF ARTERIAL PUNCTURES 1; OXYGEN DEVICE Venti Mask; STAT NO; ULNAR PULSE PRESENT
[2017-05-21] MEDS: HEPARIN SODIUM - SQ 10,000 UNITS/ML VIAL SQ SCH ×2 (15:56→21:28)
[2017-05-21] MEDS: SODIUM CHLOR 0.9% 1000 ML INJ 1,000 ML IV SCH ×2 (16:28→19:55)
[2017-05-22] VITALS (31 sets, daily range): BP systolic 130–171; BP diastolic 60–76; PULSE 75–88; RESP 18; TEMP 97.4–98.9; O2SAT 89–99
[2017-05-22] MEDS: CEFEPIME 2000 MG/NS 100 ML IV SCH ×2 (00:44)
[2017-05-22] MEDS: SODIUM CHLOR 0.9% 1000 ML INJ 1,000 ML IV SCH ×2 (03:27→18:41)
[2017-05-22] MEDS: RESP: ALBUTEROL 2.5 MG/IPRATROPIUM 0.5 MG NEB (SCH) NEB ×4 (03:36→20:35)
[2017-05-22] MEDS: INSULIN NovoLIN REGULAR SUPPLEMENTAL SCALE SQ SCH ×6 (04:00→20:00)
[2017-05-22 04:08] LABS: AUTOMATED NEUTROPHIL # 8.9 TH/MM3 (1.8-7.7); BASOPHIL % 0.2 % (0.0-2.0); EOSINOPHIL # 0.3 TH/MM3 (0-0.4); EOSINOPHIL % 2.5 % (0.0-4.0); HEMATOCRIT 35.8 % (35.0-46.0); LYMPH % 4.7 % (9.0-44.0); LYMPHOCYTE # 0.5 TH/MM3 (1.0-4.8); MEAN CELL VOLUME 92.1 FL (80.0-100.0); MEAN CORPUSCULAR HEMOGLOBIN 29.1 PG (27.0-34.0); MEAN CORPUSCULAR HGB CONC 31.6 % (32.0-36.0); MONO % 6.8 % (0.0-8.0); NEUT % 85.8 % (16.0-70.0); PLATELET COUNT 118 TH/MM3 (150-450); RED BLOOD COUNT 3.89 MIL/MM3 (4.00-5.30); RED CELL DISTRIBUTION WIDTH 16.7 % (11.6-17.2); WHITE BLOOD COUNT 10.4 TH/MM3 (4.0-11.0)
[2017-05-22 04:21] LABS: HEMO FLAGS AUTO DIFF
[2017-05-22 04:38] LABS: ALKALINE PHOSPHATASE 54 U/L (45-117); ALT (GPT) 48 U/L (10-53); ANION GAP 16 MEQ/L (5-15); AST (GOT) 23 U/L (15-37); BICARBONATE 15.9 MEQ/L (21.0-32.0); BLOOD UREA NITROGEN 39 MG/DL (7-18); CHLORIDE 107 MEQ/L (98-107); GLOMERULAR FILTRATION RATE 51 ML/MIN (>89); POTASSIUM 4.9 MEQ/L (3.5-5.1); SODIUM (NA) 139 MEQ/L (136-145); TOTAL BILIRUBIN ADULT 0.4 MG/DL (0.2-1.0)
[2017-05-22] MEDS: HEPARIN SODIUM - SQ 10,000 UNITS/ML VIAL SQ SCH ×3 (06:50→20:09)
[2017-05-22] MEDS ORDERED: DEXTROSE 50% IN WATER 50 ML VIAL(D50) IV PUSH PRN (07:30)
[2017-05-22] MEDS ORDERED: Vancomycin Consult Pharmacy 1 EA OTHER SCH (07:30)
[2017-05-22] MEDS ORDERED: VANCOMYCIN INJ 1,000 MG in SODIUM CHLOR 0.9% 250 ML INJ 250 ML IV SCH (07:30)
[2017-05-22] MEDS ORDERED: GLUCAGON 1 MG/ML VIAL OTHER PRN (07:30)
--- NOTE | 2017-05-22 07:30 | HHI.CCPN ---
Subjective Remarks/Hospital Course 66-year-old female presents confused and lethargic. Patient reportedly was recently seen today at an urgent care and received an injection for low back pain. Patient here denies headaches, chest pain or shortness of breath, abdominal pain or extremity pain. Patient does complain of low back pain. at bedside states that they're visiting from out of state for the past 3 months and will be returning back to their home state in a week. reports patient has chronic low back pain but this exacerbated over the last 24 hours starting yesterday morning. Patient was seen earlier today by her chiropractor for an adjustment and then was referred to an urgent care. Patient reportedly had a fever at the chiropractor's office and felt cold and clammy. At the urgent care patient was evaluated and reportedly had an injection of a nonsteroidal medication as she is diabetic and he did not want to give her a steroid injection. Patient went home about 1:00 PM she was drowsy so sat down in a chair and fell asleep according to the . He tried to awaken her at 4:30 and noticed that she was confusional and lethargic. He attempted to continue to awaken her over the next 2-3 hours and because she was not improving decided finally to call EMS to transport her to the emergency room. Patient and spouse denied any recent injury or fall. Patient was ambulatory this morning but this evening has difficulty elevating her lower extremities as well as she was generally extremely weak. 05/21 Patient is on BIPAP 12/ with 45% FIO2. Afebrile. Awake. Renal function is improving with Cr: 1.87 from 2.74. 05/22 No events overnight. Patient is more awake and alert off BIPAP. Renal function is improving with Cr: 1.07 from 1.87. Objective Vital Signs Date Time Temp Pulse Resp B/P (MAP) Pulse Ox O2 Delivery O2 Flow Rate FiO2 05/22/17 06:00 86 05/22/17 04:15 98.6 94 05/22/17 04:00 146/65 (92) 05/22/17 00:54 40 05/21/17 20:57 Nasal Cannula 4.00 05/21/17 20:00 28 Intake and Output 05/22/17 05/22/17 05/23/17 08:00 16:00 00:00 Intake Total 981 ml Output Total 800 ml Balance 181 ml Result Diagram: 05/22/17 0326 05/22/17 0326 Other Results Laboratory Tests Test 05/21/17 09:18 05/21/17 14:22 05/21/17 15:03 05/21/17 21:10 Lactic Acid Level 1.1 mmol/L Blood Gas Puncture Site RT RADIAL Blood Gas Patient Temperature 98.6 Blood Gas HCO3 16 mmol/L Blood Gas Base Excess -8.3 mmol/L Blood Gas Oxygen Saturation 92 % Arterial Blood pH 7.34 Arterial Blood Partial Pressure CO2 32 mmHg Arterial Blood Partial Pressure O2 82 mmHg Arterial Blood Oxygen Content 20.2 Vol % Arterial Blood Carboxyhemoglobin 1.3 % Arterial Blood Methemoglobin 1.2 % Blood Gas Hemoglobin 15.5 G/DL Oxygen Delivery Device Venti Mask Blood Gas Liter Flow 6 L/M Blood Gas Inspired Oxygen 50 % Troponin I LESS THAN 0.02 NG/ML LESS THAN 0.02 NG/ML Test 05/22/17 03:26 White Blood Count 10.4 TH/MM3 Red Blood Count 3.89 MIL/MM3 Hemoglobin 11.3 GM/DL Hematocrit 35.8 % Mean Corpuscular Volume 92.1 FL Mean Corpuscular Hemoglobin 29.1 PG Mean Corpuscular Hemoglobin Concent 31.6 % Red Cell Distribution Width 16.7 % Platelet Count 118 TH/MM3 Mean Platelet Volume 10.8 FL Neutrophils (%) (Auto) 85.8 % Lymphocytes (%) (Auto) 4.7 % Monocytes (%) (Auto) 6.8 % Eosinophils (%) (Auto) 2.5 % Basophils (%) (Auto) 0.2 % Neutrophils # (Auto) 8.9 TH/MM3 Lymphocytes # (Auto) 0.5 TH/MM3 Monocytes # (Auto) 0.7 TH/MM3 Eosinophils # (Auto) 0.3 TH/MM3 Basophils # (Auto) 0.0 TH/MM3 CBC Comment AUTO DIFF Blood Urea Nitrogen 39 MG/DL Creatinine 1.07 MG/DL Random Glucose 321 MG/DL Total Protein 6.3 GM/DL Albumin 2.2 GM/DL Calcium Level 8.6 MG/DL Alkaline Phosphatase 54 U/L Aspartate Amino Transf (AST/SGOT) 23 U/L Alanine Aminotransferase (ALT/SGPT) 48 U/L Total Bilirubin 0.4 MG/DL Sodium Level 139 MEQ/L Potassium Level 4.9 MEQ/L Chloride Level 107 MEQ/L Carbon Dioxide Level 15.9 MEQ/L Anion Gap 16 MEQ/L Estimat Glomerular Filtration Rate 51 ML/MIN Troponin I LESS THAN 0.02 NG/ML Imaging Last Impressions Liver Ultrasound 05/21/17 0000 Signed Impressions: Service Date/Time: Sunday, May 21, 2017 10:32 - CONCLUSION: 1. Hepatic steatosis. 2. Gallstones 3. Limited evaluation of the right kidney. Santana Lamar MD Chest X-Ray 05/21/17 0000 Signed Impressions: Service Date/Time: Sunday, May 21, 2017 06:17 - CONCLUSION: 1. Limited suboptimal study with motion artifact. 2. No definite acute cardiac pulmonary disease. Austin Orellana MD Head CT 05/20/[id number] Signed Impressions: Service Date/Time: Saturday, May 20, 2017 19:55 - CONCLUSION: 1. No acute findings. Retention cyst right maxillary sinus. Jakob Scruggs MD Objective Remarks GENERAL: Patient is 66 yo lying in bed in NAD SKIN: Warm and dry. HEAD: Normocephalic. EYES: No scleral icterus. No injection or drainage. NECK: Supple, trachea midline. No JVD or lymphadenopathy. CARDIOVASCULAR: Regular rate and rhythm without murmurs, gallops, or rubs. RESPIRATORY: Breath sounds equal bilaterally. No accessory muscle use. GASTROINTESTINAL: Abdomen soft, non-tender, nondistended. MUSCULOSKELETAL: No cyanosis, or edema. BACK: Nontender without obvious deformity. No CVA tenderness. Neuro: Awake, alert A/P Assessment and Plan 1)Acute hypercapnic resp failure 2)JAMES..improving 3)Hyperkalemia...improving 4)Dehydration 5)Diabetes 6)Morbid obesity. 7)Elevated LFT 8)Thrombocytopenia Plan Neuro: Monitor neuro status, avoid sedatives Pulm: Continue with oxygen keep sat >92% Bronchodilators NIPPV for resp distress. CV: Monitor HR and BP keep MAP>65mmHg Lactic acid cleared 1.1. Continue with IVF : Monitor renal function, I/O's, avoid nephrotoxins Renal function is improving with Cr: 1.07 from 1.87 IVF-NS@84ml/hr. GI: On Pepcid 10mg Q12 Monitor LFT's, US liver: Hepatic steatosis. Gallstones ID: Continue with empiric abx ( Cefepime, add Vanco)monitor for signs of infections ( Fever, WBC) 05/20 BC: Gram positive bacteremia. Check BC x 2 sets today. Follow up on urine cx Heme: Monitor CBC Endo: SSI with accuchecks GI prophylaxis- on Pepcid 10mg Q12 DVT prophylaxis- on Heparin SQ Level 3 Vero Alvarenga MD May 22, 2017 07:30
[2017-05-22] MEDS ORDERED: SODIUM BICARBONATE 8.4% INJ 50 MEQ/50 ML SYR IV PUSH ONE (08:00)
[2017-05-22] MEDS: INSULIN DETEMIR 100 UNITS/ML VIAL SQ SCH ×2 (08:33→20:08)
[2017-05-22] MEDS: SODIUM CHLORIDE 0.9% FLUSH 10 ML FLUSH IV FLUSH SCH ×2 (08:34→20:08)
[2017-05-22] MEDS: FAMOTIDINE 20 MG/2 ML VIAL IV PUSH SCH ×2 (08:34→20:08)
[2017-05-22] MEDS: oxyCODONE/ACETAMINOPHEN 10 MG/325 MG TAB PO PRN ×2 (08:40→16:34)
[2017-05-22 09:33] LABS: BANDS 24 % (0-6); METAMYELOCYTES 2 % (0-1); MYELOCYTES 2 % (0-0); NEUTROPHIL # MANUAL DIFF 9.3 TH/MM3 (1.8-7.7); POLYS (SEG NEUTROPHILS) 61 % (16-70); WBC DIFF SAMPLE 100
[2017-05-22 09:35] LABS: PLATELET ESTIMATE SMEAR NORMAL (NORMAL); PLATELET MORPHOLOGY NORMAL (NORMAL); SCAN/DIFF FINAL DIFF MANUAL
[2017-05-22] MEDS: VANCOMYCIN INJ 2,250 MG in SODIUM CHLORID 0.9% 500 ML INJ 500 ML IV SCH (13:39)
--- NOTE | 2017-05-22 14:34 | HHI.CCPN ---
Subjective Remarks/Hospital Course 66-year-old female presents confused and lethargic. Patient reportedly was recently seen today at an urgent care and received an injection for low back pain. Patient here denies headaches, chest pain or shortness of breath, abdominal pain or extremity pain. Patient does complain of low back pain. at bedside states that they're visiting from out of state for the past 3 months and will be returning back to their home state in a week. reports patient has chronic low back pain but this exacerbated over the last 24 hours starting yesterday morning. Patient was seen earlier today by her chiropractor for an adjustment and then was referred to an urgent care. Patient reportedly had a fever at the chiropractor's office and felt cold and clammy. At the urgent care patient was evaluated and reportedly had an injection of a nonsteroidal medication as she is diabetic and he did not want to give her a steroid injection. Patient went home about 1:00 PM she was drowsy so sat down in a chair and fell asleep according to the . He tried to awaken her at 4:30 and noticed that she was confusional and lethargic. He attempted to continue to awaken her over the next 2-3 hours and because she was not improving decided finally to call EMS to transport her to the emergency room. Patient and spouse denied any recent injury or fall. Patient was ambulatory this morning but this evening has difficulty elevating her lower extremities as well as she was generally extremely weak. 05/21 Patient is on BIPAP 12/ with 45% FIO2. Afebrile. Awake. Renal function is improving with Cr: 1.87 from 2.74. 05/22 No events overnight. Patient is more awake and alert off BIPAP. Renal function is improving with Cr: 1.07 from 1.87. Objective Vital Signs Date Time Temp Pulse Resp B/P (MAP) Pulse Ox O2 Delivery O2 Flow Rate FiO2 05/22/17 14:00 81 05/22/17 12:00 97.4 133/70 (91) 92 05/22/17 07:30 Nasal Cannula 4.00 05/22/17 00:54 40 05/21/17 20:00 28 Intake and Output 05/22/17 05/22/17 05/23/17 08:00 16:00 00:00 Intake Total 981 ml Output Total 800 ml Balance 181 ml Result Diagram: 05/22/17 0326 05/22/17 0326 Imaging Last Impressions Liver Ultrasound 05/21/17 0000 Signed Impressions: Service Date/Time: Sunday, May 21, 2017 10:32 - CONCLUSION: 1. Hepatic steatosis. 2. Gallstones 3. Limited evaluation of the right kidney. Santana Lamar MD Chest X-Ray 05/21/17 0000 Signed Impressions: Service Date/Time: Sunday, May 21, 2017 06:17 - CONCLUSION: 1. Limited suboptimal study with motion artifact. 2. No definite acute cardiac pulmonary disease. Austin Orellana MD Head CT 05/20/17 192 Signed Impressions: Service Date/Time: Saturday, May 20, 2017 19:55 - CONCLUSION: 1. No acute findings. Retention cyst right maxillary sinus. Jakob Scruggs MD Objective Remarks GENERAL: Patient is 66 yo lying in bed in NAD SKIN: Warm and dry. HEAD: Normocephalic. EYES: No scleral icterus. No injection or drainage. NECK: Supple, trachea midline. No JVD or lymphadenopathy. CARDIOVASCULAR: Regular rate and rhythm without murmurs, gallops, or rubs. RESPIRATORY: Breath sounds equal bilaterally. No accessory muscle use. GASTROINTESTINAL: Abdomen soft, non-tender, nondistended. MUSCULOSKELETAL: No cyanosis, or edema. BACK: Nontender without obvious deformity. No CVA tenderness. Neuro: Awake, alert A/P Assessment and Plan 1)Acute hypercapnic resp failure 2)JAMES..improving 3)Hyperkalemia...improving 4)Dehydration 5)Diabetes 6)Morbid obesity. 7)Elevated LFT 8)Thrombocytopenia Plan Neuro: Monitor neuro status, avoid sedatives Pulm: Continue with oxygen keep sat >92% Bronchodilators NIPPV for resp distress. CV: Monitor HR and BP keep MAP>65mmHg Lactic acid cleared 1.1. Continue with IVF : Monitor renal function, I/O's, avoid nephrotoxins Renal function is improving with Cr: 1.07 from 1.87 IVF-NS@84ml/hr. GI: On Pepcid 10mg Q12 Monitor LFT's, US liver: Hepatic steatosis. Gallstones ID: Continue with empiric abx ( Cefepime, add Vanco)monitor for signs of infections ( Fever, WBC) 05/20 BC: Gram positive bacteremia. Check BC x 2 sets today. Follow up on urine cx Heme: Monitor CBC Endo: SSI with accuchecks GI prophylaxis- on Pepcid 10mg Q12 DVT prophylaxis- on Heparin SQ Will sign off and transfer care to [facility] Level 3 Vero Alvarenga MD May 22, 2017 14:34
[2017-05-22 17:12] LABS: BICARBONATE 21.3 MEQ/L (21.0-32.0); POTASSIUM 5.1 MEQ/L (3.5-5.1)
--- NOTE | 2017-05-22 19:50 | MB ---
cc: NAYE BOWERS DATE OF CONSULTATION 05/22/[address] Alvarenga. REASON FOR CONSULTATION Evaluate for shortness of breath and possible sleep apnea. HISTORY OF THE PRESENT ILLNESS Ms. Crockett is a 66-year-old morbidly obese female. She is from [place]. They come here for three months of the year. They live in a condo over here and she felt that the sofa and mattress are not good which were making her back pain and the sciatic worse. She went to see a chiropractor with first some adjustment. She was having more pain. She went [facility] and was given a nonsteroidal shot. After that the patient was feeling very tired and sleepy and it was hard for the wake her up. Because of this reason she was brought to the emergency room. She had a workup done. Her blood gas initially showed pH of 7.37, PCO2 of 35, PO2 76. Then repeat blood gas pH 7.24, PCO2 44, PO2 112 on BiPAP. Currently she is weaned down to 3-4 liters nasal cannula. She feels her breathing is better. She still feels tired. She had a Percocet this morning which makes her tired. She has no known asthma or COPD. Has never been tested for sleep apnea and denies any noted apneic spells or snoring. PAST MEDICAL HISTORY Significant for: 1. Hypertension. 2. Diabetes mellitus. MEDICATIONS She is currently takin. Albuterol Atrovent nebulizer treatment. 2. Vancomycin IV. 3. Insulin 10 units. 4. Famotidine 10 milligrams daily. 5. Cefepime 2 grams q.24h. 6. Oxycodone for pain. ALLERGIES No known drug allergies. SOCIAL HISTORY She is for 41 years. 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 She has no history of smoking. Drinks socially. She has one child. REVIEW OF SYSTEMS She has been heavy most of her life. No recent change in weight. Walks short distance. Has back pain. No DVT, pulmonary embolism, seizure, stroke or epilepsy. PHYSICAL EXAMINATION GENERAL: A morbidly obese female, mild short of breath not in any acute distress. VITAL SIGNS: Blood pressure 133/70, heart rate 80, respirations 16. Temperature 97.4. HEENT: Pupils are equal and reactive to light. Oral mucosa, nasal mucosa normal. NECK: Supple. JVP not raised. CHEST: Air entry equal bilaterally. No rhonchi. CARDIOVASCULAR: S1-S2 normal. ABDOMEN: Benign. EXTREMITIES: No edema. IMPRESSION 1. Hypercapnic respiratory insufficiency, probably because of the obesity hypoventilation, need to rule out underlying sleep apnea. 2. Hypertension. 3. Diabetes mellitus. 4. Obesity. 5. Back pain and sciatica. PLAN We will check her pulmonary function tests. Wean her oxygen and evaluate for home oxygen therapy. Advised her to lose weight. She will need a sleep study as an outpatient. Continue aerosol treatment and antibiotics. Check her cultures. Further treatment will depend on the course in the hospital. Thank you Dr. Alvarenga for this consultation. MD SINA Duran/BRADY /3:33 PM /7:26 PM LISA
[2017-05-23] VITALS (22 sets, daily range): BP systolic 140–185; BP diastolic 63–99; PULSE 78–90; RESP 18–20; TEMP 97.7–98.5; O2SAT 89–97
[2017-05-23] MEDS: CEFEPIME 2000 MG/NS 100 ML IV SCH ×2 (00:06)
[2017-05-23] MEDS: INSULIN NovoLIN REGULAR SUPPLEMENTAL SCALE SQ SCH ×6 (04:00→20:00)
[2017-05-23] MEDS: CHLORHEXIDINE GLUCONATE 2 % 1 PACK (2 CLOTHS) TOP SCH (04:00)
[2017-05-23] MEDS: HEPARIN SODIUM - SQ 10,000 UNITS/ML VIAL SQ SCH ×3 (04:37→20:21)
[2017-05-23] MEDS: oxyCODONE/ACETAMINOPHEN 10 MG/325 MG TAB PO PRN ×3 (04:37→17:45)
[2017-05-23] MEDS: SODIUM CHLOR 0.9% 1000 ML INJ 1,000 ML IV SCH (04:39)
[2017-05-23 05:47] LABS: AUTOMATED NEUTROPHIL # 6.3 TH/MM3 (1.8-7.7); BASOPHIL # 0.1 TH/MM3 (0-0.2); BASOPHIL % 0.7 % (0.0-2.0); EOSINOPHIL % 0.4 % (0.0-4.0); HEMATOCRIT 35.3 % (35.0-46.0); LYMPH % 7.6 % (9.0-44.0); LYMPHOCYTE # 0.6 TH/MM3 (1.0-4.8); MEAN CELL VOLUME 89.5 FL (80.0-100.0); MEAN CORPUSCULAR HEMOGLOBIN 29.6 PG (27.0-34.0); MEAN CORPUSCULAR HGB CONC 33.1 % (32.0-36.0); MONO % 8.5 % (0.0-8.0); NEUT % 82.8 % (16.0-70.0); PLATELET COUNT 119 TH/MM3 (150-450); RED BLOOD COUNT 3.95 MIL/MM3 (4.00-5.30); RED CELL DISTRIBUTION WIDTH 16.3 % (11.6-17.2); WHITE BLOOD COUNT 7.6 TH/MM3 (4.0-11.0)
[2017-05-23 05:52] LABS: HEMO FLAGS AUTO DIFF
[2017-05-23 06:02] LABS: BICARBONATE 23.2 MEQ/L (21.0-32.0); POTASSIUM 4.9 MEQ/L (3.5-5.1)
[2017-05-23] MEDS: RESP: ALBUTEROL 2.5 MG/IPRATROPIUM 0.5 MG NEB (SCH) NEB ×2 (08:13→19:59)
[2017-05-23] MEDS: FAMOTIDINE 20 MG/2 ML VIAL IV PUSH SCH ×2 (08:37→20:20)
[2017-05-23] MEDS: SODIUM CHLORIDE 0.9% FLUSH 10 ML FLUSH IV FLUSH SCH ×2 (08:37→20:20)
[2017-05-23] MEDS: INSULIN DETEMIR 100 UNITS/ML VIAL SQ SCH ×2 (08:37→20:21)
--- NOTE | 2017-05-23 09:18 | HHI.PR ---
Subjective Remarks Patient reports severe back pain this morning. Her breathing has improved but she is still short of breath. Objective Vitals Vital Signs Date Time Temp Pulse Resp B/P (MAP) Pulse Ox O2 Delivery O2 Flow Rate FiO2 05/23/17 08:13 96 Nasal Cannula 3.00 05/23/17 06:00 85 05/23/17 04:00 99.0 87 18 184/99 (127) 90 05/23/17 04:00 87 05/23/17 02:00 80 05/23/17 00:00 78 05/23/17 00:00 97.7 78 18 176/81 (112) 93 05/22/17 22:00 79 05/22/17 20:34 95 Nasal Cannula 3.00 05/22/17 20:00 98.4 75 18 156/66 (96) 94 05/22/17 20:00 75 05/22/17 18:00 80 05/22/17 16:11 84 05/22/17 16:00 98.9 79 171/76 (107) 95 05/22/17 14:00 81 05/22/17 12:00 97.4 80 133/70 (91) 92 05/22/17 12:00 80 05/22/17 10:00 88 I/O 05/22/17 05/22/17 05/22/17 05/23/17 05/23/17 05/23/17 07:00 15:00 23:00 07:00 15:00 23:00 Intake Total 981 ml 1642.5 ml 1200 ml Output Total 800 ml 2000 ml 850 ml Balance 181 ml -357.5 ml 350 ml Intake Oral 200 ml 120 ml 100 ml IV Total 781 ml 1522.5 ml 1100 ml Output Urine Total 800 ml 2000 ml 850 ml # Bowel Movements 0 Result Diagram: 05/23/17 0424 05/23/17423 Objective Remarks GENERAL: Morbidly obese female, appears to be uncomfortable secondary to back pain. CARDIOVASCULAR: Normal rate and regular rhythm without murmurs, gallops, or rubs. RESPIRATORY: Diminished breath sounds bilaterally. No wheezing or rhonchi. GASTROINTESTINAL: Abdomen obese, non-tender. Normal active bowel sounds MUSCULOSKELETAL: Bilateral lower extremity with 2+ pitting edema. NEURO: Alert & Oriented x4 to person, place, time, situation. Moves all ext x4 PSYCH: Appropriate mood and affect. A/P Assessment and Plan 66-year-old female admitted with acute hypercapnic respiratory failure. Patient is status post ICU course and treated with BiPAP. She currently also has group B strep bacteremia, source unknown. Acute hypercapnic resp failure -Likely secondary to combination of obesity related hypoventilation and obstructive sleep apnea - Pulmonology following. Continue breathing treatments as needed. Will eventually need sleep study outpatient. Group B strep bacteremia: Source is unclear. Discussed with Dr. nicholson. - Follow repeat blood cultures. Continue vancomycin and cefepime. 2-D echocardiogram to rule out vegetations. Consider MRI of the lumbar spine once renal functions better. Acute kidney injury: Likely secondary to above. This has improved with IV fluid. - Continue to monitor. Avoid nephrotoxins. Diabetes: Continue sliding scale insulin with Accu-Cheks. Hypertension: Restart lisinopril. Morbid obesity: Weight loss would help. GI prophylaxis- on Pepcid 10mg Q12 Discharge Planning Okay to transfer to [facility]. Jaziel Brumfield MD May 23, 2017 09:18
[2017-05-23 09:29] LABS: BANDS 8 % (0-6); MYELOCYTES 2 % (0-0); POLYS (SEG NEUTROPHILS) 69 % (16-70); WBC DIFF SAMPLE 100
[2017-05-23 09:30] LABS: PLATELET ESTIMATE SMEAR LOW (NORMAL); PLATELET MORPHOLOGY NORMAL (NORMAL); SCAN/DIFF FINAL DIFF MANUAL; TOXIC GRANULATION 1+ (NORMAL)
[2017-05-23] MEDS ORDERED: hydrALAZINE HCL 20 MG/ML VIAL IV PUSH PRN (10:00)
--- NOTE | 2017-05-23 10:34 | PD.ID.CON ---
History of Present Illness Service ID Consult Requested By Reason for Consult Evaluation and Mment of Strep Grp B bacteremia. Primary Care Physician No Primary Care Physician Diagnoses: History of Present Illness is a 66-year-old female presents confused and lethargic. Patient reportedly was recently seen today at an urgent care and received an injection for low back pain. Patient here denies headaches, chest pain or shortness of breath, abdominal pain or extremity pain. Patient does complain of low back pain. at bedside states that they're visiting from out of state for the past 3 months and will be returning back to their home state in a week. reports patient has chronic low back pain but this exacerbated over the last 24 hours starting yesterday morning. Patient was seen earlier today by her chiropractor for an adjustment and then was referred to an urgent care. Patient reportedly had a fever at the chiropractor's office and felt cold and clammy. At the urgent care patient was evaluated and reportedly had an injection of a nonsteroidal medication as she is diabetic and he did not want to give her a steroid injection. Patient went home about 1:00 PM she was drowsy so sat down in a chair and fell asleep according to the . He tried to awaken her at 4:30 and noticed that she was confusional and lethargic. He attempted to continue to awaken her over the next 2-3 hours and because she was not improving decided finally to call EMS to transport her to the emergency room. Patient and spouse denied any recent injury or fall. Patient was ambulatory this morning but this evening has difficulty elevating her lower extremities as well as she was generally extremely weak. Back pain worsening in intensity. No B/B incontinence. No LE weakness or paresthesia. ID consulted for evaluation and Mment of Strep bacteremia. Review of Systems Constitutional: COMPLAINS OF: Weight gain Respiratory: COMPLAINS OF: Shortness of breath Musculoskeletal: COMPLAINS OF: Back pain Except as stated in HPI: all other systems reviewed are Neg Past Family Social History Allergies: Coded Allergies: No Known Allergies (Unverified , 05/20/17) Past Medical History Diabetes Dyslipidemia Hypertension Chronic back pain sees a chiropracter. Chronic lower extremity swelling. Never had an ECHO before per pt and spouse. ? Sleep apnea. Past Surgical History Reported Medications I attest I reviewed, obtained or updated pts home meds and current meds for name , dose, frequency and route of administration. Reported Meds & Active Scripts Active Reported Novolog Mix 70-30 Inj (Insulin Aspart Prota 70%/Aspart 30%) 1,000 Unit/10 Ml Vial Unknown Dose SQ BIDAC Glimepiride 1 Mg Tab Unknown Dose PO DAILY Take with breakfast or first main meal Lisinopril-Hctz 10-12.5 Mg Tab Unknown Dose PO DAILY Metformin (Metformin HCl) 1,000 Mg Tab Unknown Dose PO BIDPC Reports having received a pain med shot like tylenol to left buttock but sure this was not steroids. No epidural injection. 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 Follows up with Chiropracter for chronic back pain. Active Ordered Medications Current Medications Medications (Trade) Dose Ordered Sig/Erasmo Route Start Time Stop Time Status Last Admin (Narcan Inj) 0.4 mg UNSCH X1 PRN IV PUSH 05/20/17 19:30 (NS Flush) 2 ml UNSCH PRN IV FLUSH 05/20/17 22:30 (NS Flush) 2 ml BID IV FLUSH 05/21/17 09:00 05/23/17 08:37 (Pepcid Inj) 10 mg Q12HR IV PUSH 05/21/17 09:00 05/23/17 08:37 (Heparin Inj) 5,000 units Q8H SQ 05/20/17 22:00 05/23/17 04:37 Miscellaneous Information 1 Q361D XX 05/20/17 22:30 (Chlorhexidine 2% Cloth) 3 pack Taper DAILY@04 TOP 05/21/17 04:00 05/17/18 03:59 05/23/17 04:00 (Chlorhexidine 2% Cloth) 3 pack UNSCH PRN TOP 05/20/17 22:30 Cefepime HCl 2000 mg/Sodium Chloride 100 ml @ 200 mls/hr Q24H IV 05/21/17 00:00 05/23/17 00:06 (Tylenol) 650 mg Q6H PRN PO 05/21/17 01:30 (Duoneb Neb) 1 ampule Q2HR NEB PRN NEB 05/21/17 05:45 Pharmacy Profile Note 0 ml @ 0 mls/hr UNSCH OTHER 05/22/17 07:30 (Levemir Inj) 10 units Q12HR SQ 05/22/17 09:00 05/23/17 08:37 (D50w (Vial) Inj) 50 ml UNSCH PRN IV PUSH 05/22/17 07:30 (Glucagon Inj) 1 mg UNSCH PRN OTHER 05/22/17 07:30 (NovoLIN R SUPPLEMENTAL SCALE) 1 Q4H SQ 05/22/17 08:00 05/23/17 08:00 (Duoneb Neb) 1 ampule BID NEB NEB 05/22/17 20:00 05/23/17 08:13 Vancomycin HCl 2250 mg/Sodium Chloride 522.5 ml @ 257.5 mls/ hr Q24H IV 05/22/17 14:00 05/22/17 13:39 Miscellaneous Information SPECIFIC LAB TO BE MARCIA... ONCE ONCE .XX 05/24/17 13:45 05/24/17 13:46 (Percocet 10-325 Mg) 1 tab Q4HR PRN PO 05/23/17 09:45 (Morphine Inj) 4 mg Q3H PRN IV PUSH 05/23/17 09:45 (Prinivil) 10 mg DAILY PO 05/23/17 10:00 (Apresoline Inj) 10 mg Q6H PRN IV PUSH 05/23/17 10:00 Family History No family h/o cancer but reports Mom had Polyps. Social History Lives in [place], [facility]. Comes for 2-3 months. 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 No smoking. No alcohol. No drugs. in room. Physical Exam Vital Signs Vital Signs Date Time Temp Pulse Resp B/P (MAP) Pulse Ox O2 Delivery O2 Flow Rate FiO2 05/23/17 08:13 96 Nasal Cannula 3.00 05/23/17 06:00 85 05/23/17 04:00 99.0 87 18 184/99 (127) 90 05/23/17 04:00 87 05/23/17 02:00 80 05/23/17 00:00 78 05/23/17 00:00 97.7 78 18 176/81 (112) 93 05/22/17 22:00 79 05/22/17 20:34 95 Nasal Cannula 3.00 05/22/17 20:00 98.4 75 18 156/66 (96) 94 05/22/17 20:00 75 05/22/17 18:00 80 05/22/17 16:11 84 05/22/17 16:00 98.9 79 171/76 (107) 95 05/22/17 14:00 81 05/22/17 12:00 97.4 80 133/70 (91) 92 05/22/17 12:00 80 Physical Exam GENERAL: Obese patient. Sitting in a chair and puffing in between sentences. Appears uncomfortable secondary to back pain. SKIN: No rashes. Ecchymosis noted. HEAD: Atraumatic. Normocephalic. No temporal or scalp tenderness. EYES: Pupils equal round and reactive. Extraocular motions intact. No scleral icterus. No injection or drainage. ENT: Nose without bleeding, purulent drainage or septal hematoma. Throat without erythema, tonsillar hypertrophy or exudate. Uvula midline. Airway patent. NECK: Large neck. CARDIOVASCULAR: Regular rate and rhythm without murmurs, gallops, or rubs. RESPIRATORY: Clear to auscultation. Breath sounds equal bilaterally. Occ Wheezing noted. GASTROINTESTINAL: Abdomen soft, non-tender, nondistended. Obese. MUSCULOSKELETAL: Extremities without clubbing, cyanosis. Significant swelling bilateral LE upto knees pitting edema. Some erythema noted, minimal warmth. Some skin breaks noted R> L LE. NEUROLOGICAL: Awake and alert. Grossly non focal Psych cooperative IV line sites with no e/o infection. Laboratory Laboratory Tests Test 05/22/17 16:14 05/23/17 04:24 Blood Urea Nitrogen 36 34 Creatinine 1.12 1.00 Random Glucose 337 222 Calcium Level 8.4 8.6 Sodium Level 139 141 Potassium Level 5.1 4.9 Chloride Level 108 110 Carbon Dioxide Level 21.3 23.2 Anion Gap 10 8 Estimat Glomerular Filtration Rate 49 56 White Blood Count 7.6 Red Blood Count 3.95 Hemoglobin 11.7 Hematocrit 35.3 Mean Corpuscular Volume 89.5 Mean Corpuscular Hemoglobin 29.6 Mean Corpuscular Hemoglobin Concent 33.1 Red Cell Distribution Width 16.3 Platelet Count 119 Mean Platelet Volume 10.7 Neutrophils (%) (Auto) 82.8 Lymphocytes (%) (Auto) 7.6 Monocytes (%) (Auto) 8.5 Eosinophils (%) (Auto) 0.4 Basophils (%) (Auto) 0.7 Neutrophils # (Auto) 6.3 Lymphocytes # (Auto) 0.6 Monocytes # (Auto) 0.6 Eosinophils # (Auto) 0.0 Basophils # (Auto) 0.1 CBC Comment AUTO DIFF Differential Total Cells Counted 100 Neutrophils % (Manual) 69 Band Neutrophils % 8 Lymphocytes % 8 Monocytes % 13 Neutrophils # (Manual) 6.0 Myelocytes 2 Differential Comment FINAL DIFF MANUAL Toxic Granulation 1+ Platelet Estimate LOW Platelet Morphology Comment NORMAL Date/Time Source Procedure Growth Status 05/22/17 08:30 Blood Peripheral Aerobic Blood Culture Pending Received 05/22/17 08:30 Blood Peripheral Anaerobic Blood Culture Pending Received 05/20/17 20:28 Urine Catheterized Urine Urine Culture - Preliminary NO GROWTH IN 24 HOURS. Resulted Result Diagram: 05/23/174 05/23/17423 Imaging Last Impressions Liver Ultrasound 05/21/17 0000 Signed Impressions: Service Date/Time: Sunday, May 21, 2017 10:32 - CONCLUSION: 1. Hepatic steatosis. 2. Gallstones 3. Limited evaluation of the right kidney. Santana Lamar MD Chest X-Ray 05/21/17 0000 Signed Impressions: Service Date/Time: Sunday, May 21, 2017 06:17 - CONCLUSION: 1. Limited suboptimal study with motion artifact. 2. No definite acute cardiac pulmonary disease. Austin Orellana MD Head CT 05/20/171928 Signed Impressions: Service Date/Time: Saturday, May 20, 2017 19:55 - CONCLUSION: 1. No acute findings. Retention cyst right maxillary sinus. Jakob Scruggs MD Assessment and Plan Assessment and Plan Strep Grp B bacteremia sources: skin, GI. ? Bilateral R> L LE cellulitis. Back pain. reports chronic pain with increase in intensity and severity. Acute renal failure on admit appears improving today. Hypercapnic resp failure: Sleep apnea based on history HTN DM2 uncontrolled. Obesity BMI 49.7 kg/m2 Recs: Follow repeat blood cultures. Continue Cefepime IV Continue Vanco IV 2D ECHO: done but no report in chart. MRI L spine in am. Cr improved slightly today ok to wait for 1 more day. Follow clinically. Follow culture susceptibility. D/w pt: No living will in place. Does not want life prolonging measures. Would like to address living will soon. Nan Portillo MD May 23, 2017 10:34
[2017-05-23] MEDS: LISINOPRIL 10 MG TAB PO SCH (10:35)
[2017-05-23] MEDS: VANCOMYCIN INJ 2,250 MG in SODIUM CHLORID 0.9% 500 ML INJ 500 ML IV SCH (14:53)
--- NOTE | 2017-05-23 17:46 | HHI.PR ---
Subjective Remarks 66 YOObese WF with Hypercapnoea, Cellulitis, Bactremia Up in chair had Percocet for pain No Fever Objective Vital Signs Vital Signs Date Time Temp Pulse Resp B/P (MAP) Pulse Ox O2 Delivery O2 Flow Rate FiO2 05/23/17 16:00 98.5 82 20 151/68 (95) 95 05/23/17 16:00 83 05/23/17 14:00 84 05/23/17 12:01 98.0 88 19 145/63 (90) 93 05/23/17 12:00 87 05/23/17 11:01 99.7 90 18 144/66 (92) 93 05/23/17 11:00 90 05/23/17 10:01 89 18 163/68 (99) 93 05/23/17 10:00 87 05/23/17 09:00 86 19 175/77 (109) 93 05/23/17 09:00 86 05/23/17 08:15 98.6 85 20 179/88 (118) 97 05/23/17 08:13 96 Nasal Cannula 3.00 05/23/17 08:00 98.3 81 20 185/94 (124) 89 05/23/17 08:00 84 05/23/17 07:13 98.6 83 176/77 (110) 89 05/23/17 07:00 83 05/23/17 06:00 99.0 85 140/99 (113) 89 05/23/17 06:00 85 05/23/17 05:01 99.3 85 151/66 (94) 92 05/23/17 04:00 99.0 87 18 184/99 (127) 90 05/23/17 04:00 87 05/23/17 02:00 80 05/23/17 00:00 78 05/23/17 00:00 97.7 78 18 176/81 (112) 93 05/22/17 22:00 79 05/22/17 20:34 95 Nasal Cannula 3.00 05/22/17 20:00 98.4 75 18 156/66 (96) 94 05/22/17 20:00 75 05/22/17 18:00 80 I/O 10/23/17 10/23/17 10/23/17 10/24/17 10/24/17 10/24/17 07:00 15:00 23:00 07:00 15:00 23:00 Intake Total 981 ml 1642.5 ml 1200 ml 147 ml Output Total 800 ml 2000 ml 850 ml Balance 181 ml -357.5 ml 350 ml 147 ml Intake Oral 200 ml 120 ml 100 ml IV Total 781 ml 1522.5 ml 1100 ml 147 ml Output Urine Total 800 ml 2000 ml 850 ml # Bowel Movements 0 Result Diagram: 05/23/1742305/23/17423 Objective Remarks GENERAL: Morbidly obese WF, mild sob SKIN: Warm and dry. HEAD: Normocephalic. EYES: No scleral icterus. No injection or drainage. NECK: Supple, trachea midline. No JVD or lymphadenopathy. CARDIOVASCULAR: Regular rate and rhythm without murmurs, gallops, or rubs. RESPIRATORY: Breath sounds equal bilaterally. No accessory muscle use. GASTROINTESTINAL: Abdomen soft, non-tender, nondistended. MUSCULOSKELETAL: No cyanosis, or edema. has swelling and redness of legs BACK: Nontender without obvious deformity. No CVA tenderness. A/P Assessment and Plan Hypercapnoic Resp Insuff CHE or Obesity Hypoventilation synd Cellulitis legs Bactremia back pain PLAN: Aerosol nebs CPAP prn Abx vanco and Cefepime per ID Wean 02 to keep sat 88-92% Dw pt and her . Dima Bang MD May 23, 2017 17:46
[2017-05-24] VITALS (9 sets, daily range): BP systolic 156–194; BP diastolic 67–86; PULSE 85–91; RESP 16–20; TEMP 97.6–99.6; O2SAT 90–96
[2017-05-24] MEDS: oxyCODONE/ACETAMINOPHEN 10 MG/325 MG TAB PO PRN ×6 (00:38→21:01)
[2017-05-24] MEDS: CEFEPIME 2000 MG/NS 100 ML IV SCH ×2 (00:39)
[2017-05-24] MEDS: INSULIN NovoLIN REGULAR SUPPLEMENTAL SCALE SQ SCH ×6 (04:00→20:00)
[2017-05-24] MEDS: CHLORHEXIDINE GLUCONATE 2 % 1 PACK (2 CLOTHS) TOP SCH (04:00)
[2017-05-24] MEDS: HEPARIN SODIUM - SQ 10,000 UNITS/ML VIAL SQ SCH ×3 (06:00→20:46)
[2017-05-24] MEDS ORDERED: cefTRIAXone INJ 2,000 MG in SODIUM CHLORIDE 0.9% INJ 100 ML IV ONE (06:45)
[2017-05-24] MEDS: RESP: ALBUTEROL 2.5 MG/IPRATROPIUM 0.5 MG NEB (SCH) NEB ×2 (07:52→19:43)
[2017-05-24] MEDS ORDERED: WALKER WHEELS/F1 MIS (08:27)
[2017-05-24] MEDS: INSULIN DETEMIR 100 UNITS/ML VIAL SQ SCH ×2 (09:36→20:47)
[2017-05-24] MEDS: SODIUM CHLORIDE 0.9% FLUSH 10 ML FLUSH IV FLUSH SCH ×2 (09:38→20:46)
[2017-05-24] MEDS: FAMOTIDINE 20 MG/2 ML VIAL IV PUSH SCH ×2 (09:38→20:45)
[2017-05-24] MEDS: LISINOPRIL 10 MG TAB PO SCH (09:41)
[2017-05-24 09:54] LABS: HEMATOCRIT 34.4 % (35.0-46.0); MEAN CELL VOLUME 90.6 FL (80.0-100.0); MEAN CORPUSCULAR HGB CONC 33.1 % (32.0-36.0); PLATELET COUNT 105 TH/MM3 (150-450); RED CELL DISTRIBUTION WIDTH 16.2 % (11.6-17.2); REVIEW FLAG FINAL
[2017-05-24 10:16] LABS: POTASSIUM 4.6 MEQ/L (3.5-5.1)
[2017-05-24] MEDS ORDERED: MAGNESIUM HYDROXIDE SUSP 30 ML CUP PO PRN (12:15)
[2017-05-24] MEDS ORDERED: NALOXONE HCL 0.4 MG/ML AMP IV PUSH PRN (12:15)
[2017-05-24] MEDS ORDERED: LACTULOSE SYRUP 20 GM/30 ML CUP PO PRN (12:15)
[2017-05-24] MEDS ORDERED: BISACODYL 10 MG SUPP RECTAL PRN (12:15)
[2017-05-24] MEDS ORDERED: SENNOSIDES 8.6 MG TAB PO PRN (12:15)
--- NOTE | 2017-05-24 12:43 | HHI.PR ---
Subjective Remarks is a 66-year-old female presents confused and lethargic. Patient reportedly was recently seen today at an urgent care and received an injection for low back pain. Patient here denies headaches, chest pain or shortness of breath, abdominal pain or extremity pain. Patient does complain of low back pain. at bedside states that they're visiting from out of state for the past 3 months and will be returning back to their home state in a week. reports patient has chronic low back pain but this exacerbated over the last 24 hours starting yesterday morning. Patient was seen earlier today by her chiropractor for an adjustment and then was referred to an urgent care. Patient reportedly had a fever at the chiropractor's office and felt cold and clammy. At the urgent care patient was evaluated and reportedly had an injection of a nonsteroidal medication as she is diabetic and he did not want to give her a steroid injection. Patient went home about 1:00 PM she was drowsy so sat down in a chair and fell asleep according to the . He tried to awaken her at 4:30 and noticed that she was confusional and lethargic. He attempted to continue to awaken her over the next 2-3 hours and because she was not improving decided finally to call EMS to transport her to the emergency room. Patient and spouse denied any recent injury or fall. Patient was ambulatory this morning but this evening has difficulty elevating her lower extremities as well as she was generally extremely weak. Back pain worsening in intensity. No B/B incontinence. No LE weakness or paresthesia. 1025 HAS CONSTIPATION NEEDS MEDICATIONS FOR IT BLOOD PRESSURE IS NOT PERFECT- CATAPRES PRN DW AND RN AND PATIENT MRI OF [facility] REG[facility] Objective Vitals Vital Signs Date Time Temp Pulse Resp B/P (MAP) Pulse Ox O2 Delivery O2 Flow Rate FiO2 05/24/17 08:01 85 05/24/17 08:00 98.5 87 20 181/83 (115) 93 05/24/17 07:54 95 Nasal Cannula 3.00 05/24/17 04:00 99.6 85 20 176/78 (110) 91 05/23/17 22:00 84 05/23/17 20:00 80 05/23/17 20:00 94 Nasal Cannula 3.00 05/23/17 20:00 99.3 80 165/67 (99) 94 05/23/17 18:00 83 05/23/17 16:00 98.5 82 20 151/68 (95) 95 05/23/17 16:00 83 05/23/17 14:00 84 I/O 05/23/17 05/23/17 05/23/17 05/24/17 05/24/17 05/24/17 07:00 15:00 23:00 07:00 15:00 23:00 Intake Total 1200 ml 147 ml 922.5 ml 100 ml Output Total 850 ml 600 ml 550 ml Balance 350 ml 147 ml 322.5 ml -550 ml 100 ml Intake Oral 100 ml 400 ml IV Total 1100 ml 147 ml 522.5 ml 100 ml Output Urine Total 850 ml 600 ml 550 ml # Bowel Movements 0 0 Result Diagram: 05/24/17 0750 05/24/17 0750 Other Results Laboratory Tests Test 05/21/17 14:22 05/21/17 15:03 05/21/17 21:10 05/22/17 03:26 Blood Gas Puncture Site RT RADIAL Blood Gas Patient Temperature 98.6 Blood Gas HCO3 16 mmol/L Blood Gas Base Excess -8.3 mmol/L Blood Gas Oxygen Saturation 92 % Arterial Blood pH 7.34 Arterial Blood Partial Pressure CO2 32 mmHg Arterial Blood Partial Pressure O2 82 mmHg Arterial Blood Oxygen Content 20.2 Vol % Arterial Blood Carboxyhemoglobin 1.3 % Arterial Blood Methemoglobin 1.2 % Blood Gas Hemoglobin 15.5 G/DL Oxygen Delivery Device Venti Mask Blood Gas Liter Flow 6 L/M Blood Gas Inspired Oxygen 50 % Troponin I LESS THAN 0.02 NG/ML LESS THAN 0.02 NG/ML LESS THAN 0.02 NG/ML White Blood Count 10.4 TH/MM3 Red Blood Count 3.89 MIL/MM3 Hemoglobin 11.3 GM/DL Hematocrit 35.8 % Mean Corpuscular Volume 92.1 FL Mean Corpuscular Hemoglobin 29.1 PG Mean Corpuscular Hemoglobin Concent 31.6 % Red Cell Distribution Width 16.7 % Platelet Count 118 TH/MM3 Mean Platelet Volume 10.8 FL Neutrophils (%) (Auto) 85.8 % Lymphocytes (%) (Auto) 4.7 % Monocytes (%) (Auto) 6.8 % Eosinophils (%) (Auto) 2.5 % Basophils (%) (Auto) 0.2 % Neutrophils # (Auto) 8.9 TH/MM3 Lymphocytes # (Auto) 0.5 TH/MM3 Monocytes # (Auto) 0.7 TH/MM3 Eosinophils # (Auto) 0.3 TH/MM3 Basophils # (Auto) 0.0 TH/MM3 CBC Comment AUTO DIFF Differential Total Cells Counted 100 Neutrophils % (Manual) 61 % Band Neutrophils % 24 % Lymphocytes % 8 % Monocytes % 3 % Neutrophils # (Manual) 9.3 TH/MM3 Metamyelocytes 2 % Myelocytes 2 % Differential Comment FINAL DIFF MANUAL Platelet Estimate NORMAL Platelet Morphology Comment NORMAL Red Cell Morphology Comment NORMAL Blood Urea Nitrogen 39 MG/DL Creatinine 1.07 MG/DL Random Glucose 321 MG/DL Total Protein 6.3 GM/DL Albumin 2.2 GM/DL Calcium Level 8.6 MG/DL Alkaline Phosphatase 54 U/L Aspartate Amino Transf (AST/SGOT) 23 U/L Alanine Aminotransferase (ALT/SGPT) 48 U/L Total Bilirubin 0.4 MG/DL Sodium Level 139 MEQ/L Potassium Level 4.9 MEQ/L Chloride Level 107 MEQ/L Carbon Dioxide Level 15.9 MEQ/L Anion Gap 16 MEQ/L Estimat Glomerular Filtration Rate 51 ML/MIN Random Vancomycin Level 8.7 COMMENT Test 05/22/17 16:14 05/23/17 04:24 05/24/17 07:50 Blood Urea Nitrogen 36 MG/DL 34 MG/DL 26 MG/DL Creatinine 1.12 MG/DL 1.00 MG/DL 0.79 MG/DL Random Glucose 337 MG/DL 222 MG/DL 195 MG/DL Calcium Level 8.4 MG/DL 8.6 MG/DL 9.0 MG/DL Sodium Level 139 MEQ/L 141 MEQ/L 139 MEQ/L Potassium Level 5.1 MEQ/L 4.9 MEQ/L 4.6 MEQ/L Chloride Level 108 MEQ/L 110 MEQ/L 107 MEQ/L Carbon Dioxide Level 21.3 MEQ/L 23.2 MEQ/L 27.0 MEQ/L Anion Gap 10 MEQ/L 8 MEQ/L 5 MEQ/L Estimat Glomerular Filtration Rate 49 ML/MIN 56 ML/MIN 73 ML/MIN White Blood Count 7.6 TH/MM3 7.0 TH/MM3 Red Blood Count 3.95 MIL/MM3 3.80 MIL/MM3 Hemoglobin 11.7 GM/DL 11.4 GM/DL Hematocrit 35.3 % 34.4 % Mean Corpuscular Volume 89.5 FL 90.6 FL Mean Corpuscular Hemoglobin 29.6 PG 30.0 PG Mean Corpuscular Hemoglobin Concent 33.1 % 33.1 % Red Cell Distribution Width 16.3 % 16.2 % Platelet Count 119 TH/MM3 105 TH/MM3 Mean Platelet Volume 10.7 FL 10.6 FL Neutrophils (%) (Auto) 82.8 % Lymphocytes (%) (Auto) 7.6 % Monocytes (%) (Auto) 8.5 % Eosinophils (%) (Auto) 0.4 % Basophils (%) (Auto) 0.7 % Neutrophils # (Auto) 6.3 TH/MM3 Lymphocytes # (Auto) 0.6 TH/MM3 Monocytes # (Auto) 0.6 TH/MM3 Eosinophils # (Auto) 0.0 TH/MM3 Basophils # (Auto) 0.1 TH/MM3 CBC Comment AUTO DIFF Differential Total Cells Counted 100 Neutrophils % (Manual) 69 % Band Neutrophils % 8 % Lymphocytes % 8 % Monocytes % 13 % Neutrophils # (Manual) 6.0 TH/MM3 Myelocytes 2 % Differential Comment FINAL DIFF MANUAL Toxic Granulation 1+ Platelet Estimate LOW Platelet Morphology Comment NORMAL Imaging Last Impressions Liver Ultrasound 05/21/17 0000 Signed Impressions: Service Date/Time: Sunday, May 21, 2017 10:32 - CONCLUSION: 1. Hepatic steatosis. 2. Gallstones 3. Limited evaluation of the right kidney. Santana Lamar MD Chest X-Ray 05/21/17 0000 Signed Impressions: Service Date/Time: Sunday, May 21, 2017 06:17 - CONCLUSION: 1. Limited suboptimal study with motion artifact. 2. No definite acute cardiac pulmonary disease. Austin Orellana MD Head CT [id number] Signed Impressions: Service Date/Time: Saturday, May 20, 2017 19:55 - CONCLUSION: 1. No acute findings. Retention cyst right maxillary sinus. Jakob Scruggs MD Objective Remarks GENERAL: AROUSABLE, BUT LETHARGIC- ONCE WAKES UP IS MORE ALERT AND ORIENTED SKIN: Warm and dry. CELLULITIS AND WOUNDS BL LE HEAD: Atraumatic. Normocephalic. EYES: Pupils equal and round. No scleral icterus. No injection or drainage. EOMI ENT: No nasal bleeding or discharge. Mucous membranes pink and moist. TONGUE MIDLINE NECK: Trachea midline. No JVD. SUPPLE CARDIOVASCULAR: Regular rate and rhythm. S1, S2 NO S3 OR S4 RESPIRATORY: No accessory muscle use. COARSE BL. Breath sounds equal bilaterally. GASTROINTESTINAL: Abdomen soft, non-tender, nondistended. Hepatic and splenic margins not palpable. OBESE MUSCULOSKELETAL: Extremities without clubbing, cyanosis, or edema. No obvious deformities. NEUROLOGICAL: Awake and alert. No obvious cranial nerve deficits. Motor grossly within normal limits. 4 out of 5 muscle strength in the arms and legs. Normal speech. PSYCHIATRIC: Appropriate mood and affect; insight and judgment normal. ONCE TOTALLY ALERT Medications and IVs Current Medications IV Flush (NS Flush) 2 ml UNSCH PRN IV FLUSH FLUSH AFTER USING IV ACCESS Last administered on 05/20/17 19:43; Start 05/20/17 at 19:30; Stop 05/20/17 at 22 :29; Status DC Sodium Chloride 500 ml @ 500 mls/hr BOLUS ONCE IV Last administered on 19:43; Start 05/20/17 at 19:30; Stop 05/20/17 at 20:29; Status DC Sodium Chloride 500 ml @ 500 mls/hr BOLUS ONCE IV Last administered on 20:57; Start 05/20/17 at 19:30; Stop 05/20/17 at 20:29; Status DC Piperacillin Sod/ Tazobactam Sod 100 ml @ 200 mls/hr ONCE ONCE IV Last administered on 05/20/17 20:16; Start 05/20/17 at 19:30; Stop 05/20/17 at 19 :59; Status DC Naloxone HCl (Narcan Inj) 0.4 mg UNSCH X1 PRN IV PUSH RESP DEPRESSION OR HYPOTENSION; Start 05/20/17 at 19:30 Calcium Gluconate 1 gm/Sodium Chloride 110 ml @ 110 mls/hr ONCE ONCE IV Last administered on 05/20/17 21:21; Start 05/20/17 at 21:00; Stop 05/20/17 at 21 :59; Status DC Sodium Chloride 1,000 ml @ 500 mls/hr Q2H IV Last administered on 05/20/17 21:22; Start 05/20/17 at 21:15; Stop 05/21/17 at 07:39; Status DC Sodium Chloride 1,000 ml @ 175 mls/hr Q5H43M IV ; Start 05/20/17 at 22:18; Stop 05/21/17 at 07:39; Status DC Sodium Chloride (NS Flush) 2 ml UNSCH PRN IV FLUSH FLUSH AFTER USING IV ACCESS ; Start 05/20/17 at 22:30 Sodium Chloride (NS Flush) 2 ml BID IV FLUSH Last administered on 05/24/17 09 :38; Start 05/21/17 at 09:00 Famotidine (Pepcid Inj) 10 mg Q12HR IV PUSH Last administered on 05/24/17 09: 38; Start 05/21/17 at 09:00 Albuterol/ Ipratropium (Duoneb Neb) 1 ampule Q2HR NEB PRN NEB WHEEZING; Start 05/20/17 at 22:30; Stop 05/21/17 at 05:36; Status DC Heparin Sodium (Porcine) (Heparin Inj) 5,000 units Q8H SQ Last administered on 05/24/17 12:28; Start 05/20/17 at 22:00 Vancomycin HCl 1000 mg/Sodium Chloride 250 ml @ 250 mls/hr Q12H IV ; Start at 22:30; Status UNV Pharmacy Profile Note 0 ml @ 0 mls/hr UNSCH OTHER ; Start 05/20/17 at 22:30; Stop 05/22/17 at 08:48; Status DC Cefepime HCl 2000 mg/Sodium Chloride 100 ml @ 200 mls/hr Q8H IV ; Start at 22:30; Status UNV Sodium Chloride 1,000 ml @ 1,000 mls/hr Q1H ONCE IV Last administered on 05/20 23:08; Start 05/20/17 at 22:18; Stop 05/20/17 at 23:17; Status DC Sodium Chloride 1,000 ml @ 1,000 mls/hr Q1H ONCE IV Last administered on 05/21 00:58; Start 05/20/17 at 22:18; Stop 05/20/17 at 23:17; Status DC Sodium Chloride 100 ml @ 1,000 mls/hr Q6M ONCE IV Last administered on 03:14; Start 05/20/17 at 22:18; Stop 05/20/17 at 22:28; Status DC Miscellaneous Information 1 [id number] ; Start 05/20/17 at 22:30 Chlorhexidine Gluconate (Chlorhexidine 2% Cloth) 3 pack Taper DAILY@04 TOP Last administered on 05/23/17 04:00; Start 05/21/17 at 04:00; Stop 05/17/18 at 03:59 Chlorhexidine Gluconate (Chlorhexidine 2% Cloth) 3 pack UNSCH PRN TOP HYGIENIC CARE; Start 05/20/17 at 22:30 Dextrose (D50w (Vial) Inj) 50 ml UNSCH PRN IV PUSH HYPOGLYCEMIA-SEE COMMENTS; Start 05/20/17 at 22:30; Stop 05/21/17 at 07:40; Status DC Glucagon (Glucagon Inj) 1 mg UNSCH PRN OTHER HYPOGLYCEMIA-SEE COMMENTS; Start 05/20/17 at 22:30; Stop 05/21/17 at 07:40; Status DC Vancomycin HCl 2000 mg/Sodium Chloride 520 ml @ 250 mls/hr NOW ONCE IV Last administered on 05/21/17 00:57; Start 05/20/17 at 23:00; Stop 05/21/17 at 01 :04; Status DC Cefepime HCl 2000 mg/Sodium Chloride 100 ml @ 200 mls/hr Q24H IV Last administered on 05/24/17 00:39; Start 05/21/17 at 00:00; Stop 05/24/17 at 06 :37; Status DC Acetaminophen (Tylenol) 650 mg Q4H PRN PO BACK PAIN Last administered on 01:56; Start 05/21/17 at 01:30; Stop 05/21/17 at 07:33; Status DC Acetaminophen (Tylenol) 650 mg Q6H PRN PO Pain 1-4; Start 05/21/17 at 01:30 Oxycodone/ Acetaminophen (Percocet 10-325 Mg) 1 tab Q6H PRN PO Pain 5-10 Last administered on 05/23/17 04:37; Start 05/21/17 at 01:30; Stop 05/23/17 at 09 :46; Status DC Albuterol/ Ipratropium (Duoneb Neb) 1 ampule Q2HR NEB PRN NEB WHEEZING; Start 05/21/17 at 05:45 Morphine Sulfate (Morphine Inj) 4 mg STK-MED ONCE .ROUTE ; Start 05/21/17 at 05 :49; Stop 05/21/17 at 05:50; Status DC Methylprednisolone Sodium Succinate (SoluMEDROL INJ) 125 mg ONCE ONCE IV PUSH Last administered on 05/21/17 06:13; Start 05/21/17 at 06:15; Stop 05/21/17 at 06:16; Status DC Morphine Sulfate (Morphine Inj) 2 mg STAT ONCE IV PUSH Last administered on 05:53; Start 05/21/17 at 05:53; Stop 05/21/17 at 06:08; Status DC Furosemide (Lasix Inj) 60 mg ONCE ONCE IV PUSH Last administered on 06:25; Start 05/21/17 at 06:30; Stop 05/21/17 at 06:31; Status DC Furosemide (Lasix Inj) 80 mg STK-MED ONCE .ROUTE ; Start 05/21/17 at 06:20; Stop 05/21/17 at 06:21; Status DC Sodium Bicarbonate (Sodium Bicarbonate 8.4% Inj) 50 meq ONCE ONCE IV PUSH Last administered on 05/21/17 08:00; Start 05/21/17 at 08:00; Stop 05/21/17 at 08:01; Status DC Albuterol/ Ipratropium (Duoneb Neb) 1 ampule Q4HR NEB NEB Last administered on 05/22/17 10:49; Start 05/21/17 at 08:00; Stop 05/22/17 at 11:39; Status DC Sodium Chloride 1,000 ml @ 84 mls/hr [id number] IV Last administered on 04:39; Start 05/21/17 at 08:00; Stop 05/23/17 at 09:42; Status DC Dextrose (D50w (Vial) Inj) 50 ml UNSCH PRN IV PUSH HYPOGLYCEMIA-SEE COMMENTS; Start 05/21/17 at 07:15; Stop 05/22/17 at 07:33; Status DC Glucagon (Glucagon Inj) 1 mg UNSCH PRN OTHER HYPOGLYCEMIA-SEE COMMENTS; Start 05/21/17 at 07:15; Stop 05/22/17 at 07:34; Status DC Insulin Human Regular (NovoLIN R SUPPLEMENTAL SCALE) 1 Q4HR SQ Last administered on 05/22/17 04:00; Start 05/21/17 at 08:00; Stop 05/22/17 at 07 :29; Status DC Sodium Bicarbonate 50 ml @ As Directed STK-MED ONCE .ROUTE Last administered on 05/21/17 09:46; Start 05/21/17 at 09:38; Stop 05/21/17 at 09:39; Status DC Vancomycin HCl 1000 mg/Sodium Chloride 250 ml @ 250 mls/hr Q12H IV ; Start at 07:30; Stop 05/22/17 at 07:34; Status DC Pharmacy Profile Note 0 ml @ 0 mls/hr UNSCH OTHER ; Start 05/22/17 at 07:30; Stop 05/24/17 at 06:37; Status DC Insulin Detemir (Levemir Inj) 10 units Q12HR SQ Last administered on 09:36; Start 05/22/17 at 09:00 Dextrose (D50w (Vial) Inj) 50 ml UNSCH PRN IV PUSH HYPOGLYCEMIA-SEE COMMENTS; Start 05/22/17 at 07:30 Glucagon (Glucagon Inj) 1 mg UNSCH PRN OTHER HYPOGLYCEMIA-SEE COMMENTS; Start 05/22/17 at 07:30 Insulin Human Regular (NovoLIN R SUPPLEMENTAL SCALE) 1 Q4H SQ Last administered on 05/24/17 12:26; Start 05/22/17 at 08:00 Sodium Bicarbonate (Sodium Bicarbonate 8.4% Inj) 50 meq ONCE ONCE IV PUSH Last administered on 05/22/17 08:33; Start 05/22/17 at 08:00; Stop 05/22/17 at 08:01; Status DC Albuterol/ Ipratropium (Duoneb Neb) 1 ampule BID NEB NEB Last administered on 05/24/17 07:52; Start 05/22/17 at 20:00 Vancomycin HCl 2250 mg/Sodium Chloride 522.5 ml @ 257.5 mls/ hr Q24H IV Last administered on 05/23/17 14:53; Start 05/22/17 at 14:00; Stop 05/24/17 at 06 :37; Status DC Miscellaneous Information SPECIFIC LAB TO BE [facility]ARC[facility]... ONCE ONCE .XX ; Start at 13:45; Stop 05/24/17 at 13:46; Status Cancel Oxycodone/ Acetaminophen (Percocet 10-325 Mg) 1 tab Q4HR PRN PO Pain 5-10 Last administered on 05/24/17 09:41; Start 05/23/17 at 09:45 Morphine Sulfate (Morphine Inj) 4 mg Q3H PRN IV PUSH BREAKTHROUGH PAIN; Start 05/23/17 at 09:45 Lisinopril (Prinivil) 10 mg DAILY PO Last administered on 05/24/17 09:41; Start 05/23/17 at 10:00 Hydralazine HCl (Apresoline Inj) 10 mg Q6H PRN IV PUSH SBP> OR = 180, DBP> OR = 100; Start 05/23/17 at 10:00 Ceftriaxone Sodium 2000 mg/ Sodium Chloride 100 ml @ 200 mls/hr Q24H IV ; Start 05/25/17 at 06:00 Ceftriaxone Sodium 2000 mg/ Sodium Chloride 100 ml @ 200 mls/hr ONCE ONCE IV Last administered on 05/24/17 07:21; Start 05/24/17 at 06:45; Stop 05/24/17 at 07:14; Status DC Sodium Chloride (NS Flush) 2 ml UNSCH PRN IV FLUSH FLUSH AFTER USING IV ACCESS ; Start 05/24/17 at 12:15 Sodium Chloride (NS Flush) 2 ml BID IV FLUSH ; Start 05/24/17 at 21:00 Naloxone HCl (Narcan Inj) 0.4 mg UNSCH PRN IV PUSH SEE LABEL COMMENTS; Start 05/24/17 at 12:15 Senna/Docusate Sodium (May-Colace) 1 tab BID PO ; Start 05/24/17 at 21:00 Magnesium Hydroxide (Milk Of Magnesia Liq) 30 ml Q12H PRN PO Mild constipation ; Start 05/24/17 at 12:15 Sennosides (Senokot) 17.2 mg Q12H PRN PO Moderate constipation; Start at 12:15 Bisacodyl (Dulcolax Supp) 10 mg DAILY PRN RECTAL SEVERE CONSITIPATION; Start 05/24/17 at 12:15 Lactulose (Lactulose Liq) 30 ml DAILY PRN PO SEVERE CONSITIPATION; Start 05/24 at 12:15 Urinary Catheter: Yes Assessment to: Continue Vascular Central Line Catheter: No A/P Assessment and Plan 66-year-old female admitted with acute hypercapnic respiratory failure. Patient is status post ICU course and treated with BiPAP. She currently also has group B strep bacteremia, source unknown. Acute hypercapnic resp failure -Likely secondary to combination of obesity related hypoventilation and obstructive sleep apnea - Pulmonology following. Continue breathing treatments as needed. Will eventually need sleep study outpatient. Group B strep bacteremia: Source is unclear. Discussed with ID - Follow repeat blood cultures. Continue vancomycin and cefepime. 2-D echocardiogram to rule out vegetations. Consider MRI of the lumbar spine once renal functions better. Acute kidney injury: Likely secondary to above. This has improved with IV fluid. - Continue to monitor. Avoid nephrotoxins. Diabetes: Continue sliding scale insulin with Accu-Cheks. Hypertension: Restart lisinopril. PRN CATAPRES Morbid obesity: Weight loss would help. GI prophylaxis- on Pepcid 10mg Q12 DECONDITIONING AND DEBILITY NEEDS PT AND OT CONSTIPATION- RID PROTOCOL WRITTEN FOR Discharge Planning NEEDS TO BE MOBILE Mike Riddle DO May 24, 2017 12:43
[2017-05-24] MEDS: cloNIDine HCL 0.1 MG TAB PO PRN ×2 (13:43→20:46)
[2017-05-24] MEDS ORDERED: PHARMACY ORDERED LAB ONE (13:45)
[2017-05-24] MEDS: RESP: ALBUTEROL 2.5 MG/IPRATROPIUM 0.5 MG NEB (PRN) NEB (16:41)
--- NOTE | 2017-05-24 18:37 | HHI.IDPN ---
Subjective Subjective Remarks is a 66-year-old female presents confused and lethargic. Patient reportedly was recently seen today at an urgent care and received an injection for low back pain. Patient here denies headaches, chest pain or shortness of breath, abdominal pain or extremity pain. Patient does complain of low back pain. at bedside states that they're visiting from out of state for the past 3 months and will be returning back to their home state in a week. reports patient has chronic low back pain but this exacerbated over the last 24 hours starting yesterday morning. Patient was seen earlier today by her chiropractor for an adjustment and then was referred to an urgent care. Patient reportedly had a fever at the chiropractor's office and felt cold and clammy. At the urgent care patient was evaluated and reportedly had an injection of a nonsteroidal medication as she is diabetic and he did not want to give her a steroid injection. Patient went home about 1:00 PM she was drowsy so sat down in a chair and fell asleep according to the . He tried to awaken her at 4:30 and noticed that she was confusional and lethargic. He attempted to continue to awaken her over the next 2-3 hours and because she was not improving decided finally to call EMS to transport her to the emergency room. Patient and spouse denied any recent injury or fall. Patient was ambulatory this morning but this evening has difficulty elevating her lower extremities as well as she was generally extremely weak. Back pain worsening in intensity. No B/B incontinence. No LE weakness or paresthesia. ID consulted for evaluation and Mment of Strep bacteremia. Antibiotics I attest I reviewed, obtained or updated pts home meds and current meds for name , dose, duration and frequency of medications. Reported Meds & Active Scripts Active Walker with Front Wheels (Device) 1 Mis Mis Ea .ROUTE DIRECTED Reported Novolog Mix 70-30 Inj (Insulin Aspart Prota 70%/Aspart 30%) 1,000 Unit/10 Ml Vial Unknown Dose SQ BIDAC Glimepiride 1 Mg Tab Unknown Dose PO DAILY Take with breakfast or first main meal Lisinopril-Hctz 10-12.5 Mg Tab Unknown Dose PO DAILY Metformin (Metformin HCl) 1,000 Mg Tab Unknown Dose PO BIDPC Current Medications Medications (Trade) Dose Ordered Sig/Erasmo Route Start Time Stop Time Status Last Admin (Pepcid Inj) 10 mg Q12HR IV PUSH 05/21/17 09:00 05/24/17 09:38 (Heparin Inj) 5,000 units Q8H SQ 05/20/17 22:00 05/24/17 12:28 Miscellaneous Information 1 Q361D XX 05/20/17 22:30 (Chlorhexidine 2% Cloth) 3 pack Taper DAILY@04 TOP 05/21/17 04:00 05/17/18 03:59 05/23/17 04:00 (Chlorhexidine 2% Cloth) 3 pack UNSCH PRN TOP 05/20/17 22:30 (Tylenol) 650 mg Q6H PRN PO 05/21/17 01:30 (Duoneb Neb) 1 ampule Q2HR NEB PRN NEB 05/21/17 05:45 05/24/17 16:41 (Levemir Inj) 10 units Q12HR SQ 05/22/17 09:00 05/24/17 09:36 (D50w (Vial) Inj) 50 ml UNSCH PRN IV PUSH 05/22/17 07:30 (Glucagon Inj) 1 mg UNSCH PRN OTHER 05/22/17 07:30 (NovoLIN R SUPPLEMENTAL SCALE) 1 Q4H SQ 05/22/17 08:00 05/24/17 17:28 (Duoneb Neb) 1 ampule BID NEB NEB 05/22/17 20:00 05/24/17 07:52 (Percocet 10-325 Mg) 1 tab Q4HR PRN PO 05/23/17 09:45 05/24/17 17:31 (Morphine Inj) 4 mg Q3H PRN IV PUSH 05/23/17 09:45 (Prinivil) 10 mg DAILY PO 05/23/17 10:00 05/24/17 09:41 (Apresoline Inj) 10 mg Q6H PRN IV PUSH 05/23/17 10:00 Ceftriaxone Sodium 2000 mg/ Sodium Chloride 100 ml @ 200 mls/hr Q24H IV 05/25/17 06:00 (NS Flush) 2 ml UNSCH PRN IV FLUSH 05/24/17 12:15 (NS Flush) 2 ml BID IV FLUSH 05/24/17 21:00 (Narcan Inj) 0.4 mg UNSCH PRN IV PUSH 05/24/17 12:15 (May-Colace) 1 tab BID PO 05/24/17 21:00 (Milk Of Magnesia Liq) 30 ml Q12H PRN PO 05/24/17 12:15 05/24/17 13:45 (Senokot) 17.2 mg Q12H PRN PO 05/24/17 12:15 (Dulcolax Supp) 10 mg DAILY PRN RECTAL 05/24/17 12:15 (Lactulose Liq) 30 ml DAILY PRN PO 05/24/17 12:15 (Catapres) 0.1 mg Q4H PRN PO 05/24/17 12:30 05/24/17 13:43 (Lasix Inj) 40 mg NOW ONCE IV PUSH 05/24/17 18:45 05/24/17 18:46 Lines Line sites with no e.o infection Past Medical History Diabetes Dyslipidemia Hypertension Chronic back pain sees a chiropracter. Chronic lower extremity swelling. Never had an ECHO before per pt and spouse. ? Sleep apnea. Allergies: Coded Allergies: No Known Allergies (Unverified , 05/20/17) Objective . Vital Signs Date Time Temp Pulse Resp B/P (MAP) Pulse Ox O2 Delivery O2 Flow Rate FiO2 05/24/17 16:41 95 Nasal Cannula 3.00 05/24/17 16:00 98.1 87 16 156/67 (96) 93 05/24/17 12:00 98.0 91 18 188/86 (120) 92 05/24/17 08:01 85 05/24/17 08:00 98.5 87 20 181/83 (115) 93 05/24/17 07:54 95 Nasal Cannula 3.00 05/24/17 04:00 99.6 85 20 176/78 (110) 91 05/23/17 22:00 84 05/23/17 20:00 80 05/23/17 20:00 94 Nasal Cannula 3.00 05/23/17 20:00 99.3 80 165/67 (99) 94 05/24/17 05/24/17 05/25/17 15:00 23:00 07:00 Intake Total 100 ml Output Total 350 ml Balance -250 ml IV Total 100 ml Output Urine Total 350 ml # Voids 1 # Bowel Movements 0 . Laboratory Tests Test 05/23/17 04:24 10/25/17 07:50 White Blood Count 7.6 TH/MM3 7.0 TH/MM3 Red Blood Count 3.95 MIL/MM3 3.80 MIL/MM3 Hemoglobin 11.7 GM/DL 11.4 GM/DL Hematocrit 35.3 % 34.4 % Mean Corpuscular Volume 89.5 FL 90.6 FL Mean Corpuscular Hemoglobin 29.6 PG 30.0 PG Mean Corpuscular Hemoglobin Concent 33.1 % 33.1 % Red Cell Distribution Width 16.3 % 16.2 % Platelet Count 119 TH/MM3 105 TH/MM3 Mean Platelet Volume 10.7 FL 10.6 FL Neutrophils (%) (Auto) 82.8 % Lymphocytes (%) (Auto) 7.6 % Monocytes (%) (Auto) 8.5 % Eosinophils (%) (Auto) 0.4 % Basophils (%) (Auto) 0.7 % Neutrophils # (Auto) 6.3 TH/MM3 Lymphocytes # (Auto) 0.6 TH/MM3 Monocytes # (Auto) 0.6 TH/MM3 Eosinophils # (Auto) 0.0 TH/MM3 Basophils # (Auto) 0.1 TH/MM3 CBC Comment AUTO DIFF Differential Total Cells Counted 100 Neutrophils % (Manual) 69 % Band Neutrophils % 8 % Lymphocytes % 8 % Monocytes % 13 % Neutrophils # (Manual) 6.0 TH/MM3 Myelocytes 2 % Differential Comment FINAL DIFF MANUAL Toxic Granulation 1+ Platelet Estimate LOW Platelet Morphology Comment NORMAL Laboratory Tests Test 05/23/17 04:24 05/24/17 07:50 Blood Urea Nitrogen 34 MG/DL 26 MG/DL Creatinine 1.00 MG/DL 0.79 MG/DL Random Glucose 222 MG/DL 195 MG/DL Calcium Level 8.6 MG/DL 9.0 MG/DL Sodium Level 141 MEQ/L 139 MEQ/L Potassium Level 4.9 MEQ/L 4.6 MEQ/L Chloride Level 110 MEQ/L 107 MEQ/L Carbon Dioxide Level 23.2 MEQ/L 27.0 MEQ/L Anion Gap 8 MEQ/L 5 MEQ/L Estimat Glomerular Filtration Rate 56 ML/MIN 73 ML/MIN Microbiology Date/Time Source Procedure Growth Status 05/22/17 08:30 Blood Peripheral Aerobic Blood Culture - Preliminary NO GROWTH IN 2 DAYS Resulted 05/22/17 08:30 Blood Peripheral Anaerobic Blood Culture - Preliminary NO GROWTH IN 2 DAYS Resulted 05/22/17 08:24 Blood Peripheral Aerobic Blood Culture - Preliminary NO GROWTH IN 2 DAYS Resulted 05/22/17 08:24 Blood Peripheral Anaerobic Blood Culture - Preliminary NO GROWTH IN 2 DAYS Resulted Imaging Last Impressions Liver Ultrasound 05/21/17 0000 Signed Impressions: Service Date/Time: Sunday, May 21, 2017 10:32 - CONCLUSION: 1. Hepatic steatosis. 2. Gallstones 3. Limited evaluation of the right kidney. Santana Lamar MD Chest X-Ray 05/21/17 0000 Signed Impressions: Service Date/Time: Sunday, May 21, 2017 06:17 - CONCLUSION: 1. Limited suboptimal study with motion artifact. 2. No definite acute cardiac pulmonary disease. Austin Orellana MD Head CT 05/20/171928 Signed Impressions: Service Date/Time: Saturday, May 20, 2017 19:55 - CONCLUSION: 1. No acute findings. Retention cyst right maxillary sinus. Jakob Scruggs MD Physical Exam GENERAL: Obese patient. Sitting in a chair and puffing in between sentences. Appears short of breath with mild resp distress. SKIN: No rashes. Ecchymosis noted. HEAD: Atraumatic. Normocephalic. No temporal or scalp tenderness. EYES: Pupils equal round and reactive. Extraocular motions intact. No scleral icterus. No injection or drainage. ENT: Nose without bleeding, purulent drainage or septal hematoma. Throat without erythema, tonsillar hypertrophy or exudate. Uvula midline. Airway patent. NECK: Large neck. CARDIOVASCULAR: Regular rate and rhythm without murmurs, gallops, or rubs. RESPIRATORY: Breath sounds equal bilaterally. Occ Wheezing noted. Basilar crackles. GASTROINTESTINAL: Abdomen soft, non-tender, nondistended. Obese. MUSCULOSKELETAL: Extremities without clubbing, cyanosis. Significant swelling bilateral LE upto knees pitting edema. Some erythema noted, minimal warmth. Some skin breaks noted R> L LE. NEUROLOGICAL: Awake and alert. Grossly non focal Psych cooperative IV line sites with no e/o infection. Assessment & Plan Remarks Strep Grp B bacteremia sources: skin, GI. Bilateral R> L LE cellulitis. Back pain. reports chronic pain with increase in intensity and severity. Acute renal failure on admit appears improving today. Hypercapnic resp failure: Sleep apnea based on history HTN DM2 uncontrolled. Obesity BMI 49.7 kg/m2 Recs: DC Cefepime IV Start Ceftriaxone IV Follow repeat blood cultures. 2D ECHO. MRI L spine in am. Ok to wait a day as pt is short of breath. d,w RN call placed to . Pt will benefit from small dose of lasix and order a CXR. Follow clinically. Follow culture susceptibility. CXR reviewed by me: congestive pattern. d.w Dr.Aneja Bailey D/w pt: No living will in place. Does not want life prolonging measures. Would like to address living will soon. Nan Portillo MD May 24, 2017 18:37
[2017-05-24] MEDS ORDERED: FUROSEMIDE 40 MG/4 ML VIAL IV PUSH ONE (18:45)
--- NOTE | 2017-05-24 19:00 | RADRPT ---
EXAM DATE/TIME: 05/24/2017 19:28 [facility] COMPARISON: CHEST SINGLE AP, May 21, 2017, 6:17. INDICATIONS : Short of breath. MEDICAL HISTORY : Hypertension. Diabetes. SURGICAL HISTORY : None. ENCOUNTER: Subsequent ACUITY: 1 day PAIN SCORE: 0/10 LOCATION: Bilateral chest FINDINGS: Examination reveals cardiomegaly with vascular congestion and diffuse interstitial prominence. Consol idative change in the left base may be atelectasis. CONCLUSION: CHF Santana Arzate MD on May 24, 2017 at 18:57 Board Certified Radiologist. This report was verified electronically.
--- NOTE | 2017-05-24 19:23 | HHI.PR ---
Subjective Remarks 66 YOObese WF with Hypercapnoea, Cellulitis, Bactremia had Percocet for pain No Fever has more pain at BS Objective Vital Signs Vital Signs Date Time Temp Pulse Resp B/P (MAP) Pulse Ox O2 Delivery O2 Flow Rate FiO2 05/24/17 16:41 95 Nasal Cannula 3.00 05/24/17 16:00 98.1 87 16 156/67 (96) 93 05/24/17 12:00 98.0 91 18 188/86 (120) 92 05/24/17 08:01 85 05/24/17 08:00 98.5 87 20 181/83 (115) 93 05/24/17 07:54 95 Nasal Cannula 3.00 05/24/17 04:00 99.6 85 20 176/78 (110) 91 05/23/17 22:00 84 05/23/17 20:00 80 05/23/17 20:00 94 Nasal Cannula 3.00 05/23/17 20:00 99.3 80 165/67 (99) 94 I/O 05/23/17 05/23/17 05/23/17 05/24/17 05/24/17 05/24/17 07:00 15:00 23:00 07:00 15:00 23:00 Intake Total 1200 ml 147 ml 922.5 ml 100 ml Output Total 850 ml 600 ml 550 ml 350 ml Balance 350 ml 147 ml 322.5 ml -550 ml -250 ml Intake Oral 100 ml 400 ml IV Total 1100 ml 147 ml 522.5 ml 100 ml Output Urine Total 850 ml 600 ml 550 ml 350 ml # Voids 1 # Bowel Movements 0 0 0 Result Diagram: 05/24/17 0750 05/24/17 0750 Objective Remarks GENERAL: Morbidly obese WF, mild sob SKIN: Warm and dry. HEAD: Normocephalic. EYES: No scleral icterus. No injection or drainage. NECK: Supple, trachea midline. No JVD or lymphadenopathy. CARDIOVASCULAR: Regular rate and rhythm without murmurs, gallops, or rubs. RESPIRATORY: Breath sounds equal bilaterally. No accessory muscle use. GASTROINTESTINAL: Abdomen soft, non-tender, nondistended. MUSCULOSKELETAL: No cyanosis, or edema. has swelling and redness of legs BACK: Nontender without obvious deformity. No CVA tenderness. A/P Assessment and Plan Hypercapnoic Resp Insuff CHE or Obesity Hypoventilation synd Cellulitis legs Bactremia back pain PLAN: Aerosol nebs CPAP prn Abx vanco and Cefepime per ID Wean 02 to keep sat 88-92% Dw pt and her . Going for MRI Spine Dima Bang MD May 24, 2017 19:23
[2017-05-24 19:38] LABS: HEMOGLOBIN A1a 1.4 %; HEMOGLOBIN Ao 75.1 %; HEMOGLOBIN P3 7.5 %
--- NOTE | 2017-05-24 20:25 | ECHRPT ---
Indication: shortness of breath CONCLUSIONS The left ventricular systolic function is normal with an estimated ejection fraction in the range of 55-60%. Normal left ventricular size. Moderate concentric left ventricular hypertrophy. No regional wall motion abnormalities are present. There is trace tricuspid valve regurgitation. The estimated pulmonary arterial pressure is 36 mmHg. BP: 184 / 99 HR: 87 Rhythm: Sinus MEASUREMENTS (Male / Female) Normal Values Technical Quality:Technically difficult study 2D ECHO LV Diastolic Diameter PLAX 4.8 cm 4.2 - 5.9 / 3.9 - 5.3 cm LV Systolic Diameter PLAX 3.1 cm IVS Diastolic Thickness 1.5 cm 0.6 - 1.0 / 0.6 - 0.9 cm LVPW Diastolic Thickness 1.5 cm 0.6 - 1.0 / 0.6 - 0.9 cm LV Relative Wall Thickness 0.6 LVOT Diameter 1.9 cm M-MODE Aortic Root Diameter MM 3.0 cm LA Systolic Diameter MM 4.2 cm LA Ao Ratio MM 1.4 AV Cusp Separation MM 1.9 cm DOPPLER AV Peak Velocity 200.0 cm/s AV Peak Gradient 16.0 mmHg LVOT Peak Velocity 126.0 cm/s LVOT Peak Gradient 6.4 mmHg AV Area Cont Eq pk 1.8 cm MV Area PHT 3.0 cm Mitral E Point Velocity 103.0 cm/s Mitral A Point Velocity 113.0 cm/s Mitral E to A Ratio 0.9 LV E' Lateral Velocity 7.3 cm/s Mitral E to LV E' Lateral Ratio 14.1 LV E' Septal Velocity 8.1 cm/s Mitral E to LV E' Septal Ratio 12.7 TR Peak Velocity 253.0 cm/s TR Peak Gradient 25.6 mmHg Right Atrial Pressure 10.0 mmHg Pulmonary Artery Systolic Pressu 35.6 mmHg Right Ventricular Systolic Press 35.6 mmHg PV Peak Velocity 140.0 cm/s PV Peak Gradient 7.8 mmHg FINDINGS LEFT VENTRICLE The left ventricular systolic function is normal with an estimated ejection fraction in the range of 55-60%. Normal left ventricular size. Moderate concentric left ventricular hypertrophy. No regional wall motion abnormalities are present. AORTIC VALVE Trileaflet aortic valve. No aortic valve stenosis or regurgitation. TRICUSPID VALVE Structurally normal tricuspid valve. There is trace tricuspid valve regurgitation. The estimated pulmonary arterial pressure is 36 mmHg. Jun Colin MD, FACC (Electronically Signed) Final Date:24 May 2017 20:23
[2017-05-24] MEDS: DOCUSATE SODIUM 50 MG/SENNA 8.6 MG TAB PO SCH (20:46)
[2017-05-25] VITALS (11 sets, daily range): BP systolic 159–190; BP diastolic 70–81; PULSE 89–97; RESP 18–20; TEMP 97.3–99.8; O2SAT 90–97
[2017-05-25] MEDS: MORPHINE SULFATE 4 MG/ML INJ IV PUSH PRN ×4 (00:16→21:07)
[2017-05-25] MEDS: cloNIDine HCL 0.1 MG TAB PO PRN ×5 (00:23→23:53)
[2017-05-25] MEDS: oxyCODONE/ACETAMINOPHEN 10 MG/325 MG TAB PO PRN ×5 (01:13→23:49)
[2017-05-25] MEDS: CHLORHEXIDINE GLUCONATE 2 % 1 PACK (2 CLOTHS) TOP SCH (02:47)
[2017-05-25] MEDS: INSULIN NovoLIN REGULAR SUPPLEMENTAL SCALE SQ SCH ×7 (04:00→23:48)
[2017-05-25] MEDS: SODIUM CHLORIDE 0.9% FLUSH 10 ML FLUSH IV FLUSH PRN (04:47)
[2017-05-25] MEDS: HEPARIN SODIUM - SQ 10,000 UNITS/ML VIAL SQ SCH ×2 (05:55→13:17)
[2017-05-25] MEDS ORDERED: cefTRIAXone INJ 2,000 MG in SODIUM CHLORIDE 0.9% INJ 100 ML IV SCH (06:00)
[2017-05-25] MEDS: RESP: ALBUTEROL 2.5 MG/IPRATROPIUM 0.5 MG NEB (SCH) NEB ×2 (07:41→20:34)
[2017-05-25 07:42] LABS: AUTOMATED NEUTROPHIL # 6.4 TH/MM3 (1.8-7.7); BASOPHIL # 0.1 TH/MM3 (0-0.2); BASOPHIL % 0.7 % (0.0-2.0); EOSINOPHIL # 0.1 TH/MM3 (0-0.4); EOSINOPHIL % 1.2 % (0.0-4.0); HEMATOCRIT 35.2 % (35.0-46.0); LYMPH % 16.5 % (9.0-44.0); LYMPHOCYTE # 1.5 TH/MM3 (1.0-4.8); MEAN CELL VOLUME 91.1 FL (80.0-100.0); MEAN CORPUSCULAR HEMOGLOBIN 29.5 PG (27.0-34.0); MEAN CORPUSCULAR HGB CONC 32.4 % (32.0-36.0); MONO % 11.5 % (0.0-8.0); NEUT % 70.1 % (16.0-70.0); PLATELET COUNT 107 TH/MM3 (150-450); RED BLOOD COUNT 3.86 MIL/MM3 (4.00-5.30); RED CELL DISTRIBUTION WIDTH 16.1 % (11.6-17.2); WHITE BLOOD COUNT 9.2 TH/MM3 (4.0-11.0)
[2017-05-25 07:45] LABS: HEMO FLAGS AUTO DIFF
[2017-05-25] MEDS: SODIUM CHLORIDE 0.9% FLUSH 10 ML FLUSH IV FLUSH SCH ×2 (08:30→21:00)
[2017-05-25] MEDS: LISINOPRIL 10 MG TAB PO SCH (08:31)
[2017-05-25] MEDS: DOCUSATE SODIUM 50 MG/SENNA 8.6 MG TAB PO SCH ×2 (08:31→21:00)
[2017-05-25] MEDS: INSULIN DETEMIR 100 UNITS/ML VIAL SQ SCH ×2 (08:32→21:34)
[2017-05-25] MEDS: FAMOTIDINE 20 MG/2 ML VIAL IV PUSH SCH ×2 (08:32→21:04)
[2017-05-25 09:01] LABS: ALT (GPT) 37 U/L (10-53); ANION GAP 6 MEQ/L (5-15); AST (GOT) 16 U/L (15-37); BICARBONATE 30.3 MEQ/L (21.0-32.0); BLOOD UREA NITROGEN 19 MG/DL (7-18); CHLORIDE 106 MEQ/L (98-107); GLOMERULAR FILTRATION RATE 78 ML/MIN (>89); MAGNESIUM 1.9 MG/DL (1.5-2.5); POTASSIUM 4.4 MEQ/L (3.5-5.1); SODIUM (NA) 142 MEQ/L (136-145)
[2017-05-25 09:03] LABS: ALKALINE PHOSPHATASE 59 U/L (45-117); TOTAL BILIRUBIN ADULT 0.3 MG/DL (0.2-1.0)
--- NOTE | 2017-05-25 09:44 | RSPPFT ---
DATE OF PROCEDURE: 05/23/17 COMMENTS: Spirometry with FVC of 1.0 at 39% of predicted, FEV1 of 0.9 at 44%, FEV1/FVC ratio is normal. Flow is decreased at FEF 25, FEF 50, FEF 75 and FEF 25-75. There is no response after bronchodilator treatment. Flow volume loop indicates a restrictive pattern. IMPRESSION: 1. Study is suggestive of restrictive lung disease. 2. No response after bronchodilator treatment. 3. Patient will need a complete pulmonary function study for further evaluation.
[2017-05-25 09:53] LABS: BANDS 13 % (0-6); EOSINOPHILS 1 % (0-4); MYELOCYTES 2 % (0-0); NEUTROPHIL # MANUAL DIFF 7.7 TH/MM3 (1.8-7.7); POLYS (SEG NEUTROPHILS) 69 % (16-70); WBC DIFF SAMPLE 100
[2017-05-25 09:54] LABS: PLATELET ESTIMATE SMEAR LOW (NORMAL); PLATELET MORPHOLOGY NORMAL (NORMAL); SCAN/DIFF FINAL DIFF MANUAL; TOXIC GRANULATION 1+ (NORMAL)
--- NOTE | 2017-05-25 16:11 | HHI.PR ---
Subjective Remarks Follow-up respiratory failure, bacteremia. Patient is more lethargic today. Her is at bedside and states that she has been sleeping all day and not really answering questions like she was yesterday. She continues to report pain in her lower back. Objective Vitals Vital Signs Date Time Temp Pulse Resp B/P (MAP) Pulse Ox O2 Delivery O2 Flow Rate FiO2 05/25/17 12:00 99.1 96 18 172/74 (106) 90 05/25/17 10:46 90 05/25/17 08:50 92 Nasal Cannula 2.00 05/25/17 08:00 98.7 94 20 164/71 (102) 90 05/25/17 07:44 94 Nasal Cannula 2.00 05/25/17 04:22 93 Nasal Cannula 3.00 05/25/17 04:00 98.5 89 20 180/74 (109) 96 05/25/17 03:34 90 05/25/17 00:00 97.3 89 20 190/79 (116) 90 05/24/17 20:00 97.6 88 20 176/73 (107) 96 194/77 (116) 05/24/17 19:43 90 Nasal Cannula 4.00 05/24/17 16:41 95 Nasal Cannula 3.00 I/O 05/24/17 05/24/17 05/24/17 05/25/17 05/25/17 05/25/17 07:00 15:00 23:00 07:00 15:00 23:00 Intake Total 100 ml Output Total 550 ml 350 ml Balance -550 ml -250 ml IV Total 100 ml Output Urine Total 550 ml 350 ml # Voids 1 1 2 # Bowel Movements 0 Result Diagram: 05/25/17 0653 05/25/17 0653 Imaging Last Impressions Chest X-Ray 05/24/17 0000 Signed Impressions: Service Date/Time: Wednesday, May 24, 2017 19:28 - CONCLUSION: CHF Santana Arzate MD Liver Ultrasound 05/21/17 0000 Signed Impressions: Service Date/Time: Sunday, May 21, 2017 10:32 - CONCLUSION: 1. Hepatic steatosis. 2. Gallstones 3. Limited evaluation of the right kidney. Santana Lamar MD Head CT 05/20/171928 Signed Impressions: Service Date/Time: Saturday, May 20, 2017 19:55 - CONCLUSION: 1. No acute findings. Retention cyst right maxillary sinus. Jakob Scruggs MD Objective Remarks General: Obese female in no acute distress. Heart: Regular rate and rhythm. No murmur. Lungs: Coarse breath sounds bilaterally. Breathing is nonlabored. Abdomen: Soft, nontender, nondistended. Extremities: No lower extremity edema. Psych: Lethargic. Procedures None Urinary Catheter: No Vascular Central Line Catheter: No A/P Assessment and Plan 1. Acute hypercapnic respiratory failure: Required BiPAP while in the ICU. Likely secondary to obesity hypoventilation syndrome, obstructive sleep apnea. Appreciate pulmonology recommendations. Continue bronchodilators. Continue supplemental oxygen. 2. Bacteremia, group B strep: Uncertain source. Appreciate infectious disease recommendations. Discussed with Dr. Portillo. Continue antibiotics. Repeat blood cultures are negative so far. 2-D echocardiogram shows no evidence of vegetations. MRI of the lumbar spine has been ordered. 3. Acute kidney injury: Secondary to above. Improved with IV fluids. 4. Diabetes mellitus: Monitor Accu-Cheks and cover with sliding scale insulin. 5. Hypertension: Continue lisinopril. Clonidine as needed. 6. GI prophylaxis: Pepcid. 7. Deconditioning: PT/OT. 8. DVT prophylaxis: Subcutaneous heparin. Tristin Rivera MD May 25, 2017 16:10
--- NOTE | 2017-05-25 16:26 | HHI.IDPN ---
Subjective Subjective Remarks is a 66-year-old female presents confused and lethargic. Patient reportedly was recently seen today at an urgent care and received an injection for low back pain. Patient here denies headaches, chest pain or shortness of breath, abdominal pain or extremity pain. Patient does complain of low back pain. at bedside states that they're visiting from out of state for the past 3 months and will be returning back to their home state in a week. reports patient has chronic low back pain but this exacerbated over the last 24 hours starting yesterday morning. Patient was seen earlier today by her chiropractor for an adjustment and then was referred to an urgent care. Patient reportedly had a fever at the chiropractor's office and felt cold and clammy. At the urgent care patient was evaluated and reportedly had an injection of a nonsteroidal medication as she is diabetic and he did not want to give her a steroid injection. Patient went home about 1:00 PM she was drowsy so sat down in a chair and fell asleep according to the . He tried to awaken her at 4:30 and noticed that she was confusional and lethargic. He attempted to continue to awaken her over the next 2-3 hours and because she was not improving decided finally to call EMS to transport her to the emergency room. Patient and spouse denied any recent injury or fall. Patient was ambulatory this morning but this evening has difficulty elevating her lower extremities as well as she was generally extremely weak. Back pain worsening in intensity. No B/B incontinence. No LE weakness or paresthesia. ID consulted for evaluation and Mment of Strep bacteremia. Overnight events reviewed. No fevers No rash No diarrhea Appears confused today, change in mentation from when I first saw her. Antibiotics I attest I reviewed, obtained or updated pts home meds and current meds for name , dose, duration and frequency of medications. Reported Meds & Active Scripts Active Walker with Front Wheels (Device) 1 Mis Mis Ea .ROUTE DIRECTED Reported Novolog Mix 70-30 Inj (Insulin Aspart Prota 70%/Aspart 30%) 1,000 Unit/10 Ml Vial Unknown Dose SQ BIDAC Glimepiride 1 Mg Tab Unknown Dose PO DAILY Take with breakfast or first main meal Lisinopril-Hctz 10-12.5 Mg Tab Unknown Dose PO DAILY Metformin (Metformin HCl) 1,000 Mg Tab Unknown Dose PO BIDPC Current Medications Medications (Trade) Dose Ordered Sig/Erasmo Route Start Time Stop Time Status Last Admin (Pepcid Inj) 10 mg Q12HR IV PUSH 05/21/17 09:00 05/24/17 09:38 (Heparin Inj) 5,000 units Q8H SQ 05/20/17 22:00 05/24/17 12:28 Miscellaneous Information 1 Q361D XX 05/20/17 22:30 (Chlorhexidine 2% Cloth) 3 pack Taper DAILY@04 TOP 05/21/17 04:00 05/17/18 03:59 05/23/17 04:00 (Chlorhexidine 2% Cloth) 3 pack UNSCH PRN TOP 05/20/17 22:30 (Tylenol) 650 mg Q6H PRN PO 05/21/17 01:30 (Duoneb Neb) 1 ampule Q2HR NEB PRN NEB 05/21/17 05:45 05/24/17 16:41 (Levemir Inj) 10 units Q12HR SQ 05/22/17 09:00 05/24/17 09:36 (D50w (Vial) Inj) 50 ml UNSCH PRN IV PUSH 05/22/17 07:30 (Glucagon Inj) 1 mg UNSCH PRN OTHER 05/22/17 07:30 (NovoLIN R SUPPLEMENTAL SCALE) 1 Q4H SQ 05/22/17 08:00 05/24/17 17:28 (Duoneb Neb) 1 ampule BID NEB NEB 05/22/17 20:00 05/24/17 07:52 (Percocet 10-325 Mg) 1 tab Q4HR PRN PO 05/23/17 09:45 05/24/17 17:31 (Morphine Inj) 4 mg Q3H PRN IV PUSH 05/23/17 09:45 (Prinivil) 10 mg DAILY PO 05/23/17 10:00 05/24/17 09:41 (Apresoline Inj) 10 mg Q6H PRN IV PUSH 05/23/17 10:00 Ceftriaxone Sodium 2000 mg/ Sodium Chloride 100 ml @ 200 mls/hr Q24H IV 05/25/17 06:00 (NS Flush) 2 ml UNSCH PRN IV FLUSH 05/24/17 12:15 (NS Flush) 2 ml BID IV FLUSH 05/24/17 21:00 (Narcan Inj) 0.4 mg UNSCH PRN IV PUSH 05/24/17 12:15 (May-Colace) 1 tab BID PO 05/24/17 21:00 (Milk Of Magnesia Liq) 30 ml Q12H PRN PO 05/24/17 12:15 05/24/17 13:45 (Senokot) 17.2 mg Q12H PRN PO 05/24/17 12:15 (Dulcolax Supp) 10 mg DAILY PRN RECTAL 05/24/17 12:15 (Lactulose Liq) 30 ml DAILY PRN PO 05/24/17 12:15 (Catapres) 0.1 mg Q4H PRN PO 05/24/17 12:30 05/24/17 13:43 (Lasix Inj) 40 mg NOW ONCE IV PUSH 05/24/17 18:45 05/24/17 18:46 Lines Line sites with no e.o infection Past Medical History Diabetes Dyslipidemia Hypertension Chronic back pain sees a chiropracter. Chronic lower extremity swelling. Never had an ECHO before per pt and spouse. ? Sleep apnea. Allergies: Coded Allergies: No Known Allergies (Unverified , 05/20/17) Objective . Vital Signs Date Time Temp Pulse Resp B/P (MAP) Pulse Ox O2 Delivery O2 Flow Rate FiO2 05/25/17 12:00 99.1 96 18 172/74 (106) 90 05/25/17 10:46 90 05/25/17 08:50 92 Nasal Cannula 2.00 05/25/17 08:00 98.7 94 20 164/71 (102) 90 05/25/17 07:44 94 Nasal Cannula 2.00 05/25/17 04:22 93 Nasal Cannula 3.00 05/25/17 04:00 98.5 89 20 180/74 (109) 96 05/25/17 03:34 90 05/25/17 00:00 97.3 89 20 190/79 (116) 90 05/24/17 20:00 97.6 88 20 176/73 (107) 96 194/77 (116) 05/24/17 19:43 90 Nasal Cannula 4.00 05/24/17 16:41 95 Nasal Cannula 3.00 . Laboratory Tests Test 05/24/17 07:50 05/25/17 06:53 White Blood Count 7.0 TH/MM3 9.2 TH/MM3 Red Blood Count 3.80 MIL/MM3 3.86 MIL/MM3 Hemoglobin 11.4 GM/DL 11.4 GM/DL Hematocrit 34.4 % 35.2 % Mean Corpuscular Volume 90.6 FL 91.1 FL Mean Corpuscular Hemoglobin 30.0 PG 29.5 PG Mean Corpuscular Hemoglobin Concent 33.1 % 32.4 % Red Cell Distribution Width 16.2 % 16.1 % Platelet Count 105 TH/MM3 107 TH/MM3 Mean Platelet Volume 10.6 FL 10.7 FL Neutrophils (%) (Auto) 70.1 % Lymphocytes (%) (Auto) 16.5 % Monocytes (%) (Auto) 11.5 % Eosinophils (%) (Auto) 1.2 % Basophils (%) (Auto) 0.7 % Neutrophils # (Auto) 6.4 TH/MM3 Lymphocytes # (Auto) 1.5 TH/MM3 Monocytes # (Auto) 1.1 TH/MM3 Eosinophils # (Auto) 0.1 TH/MM3 Basophils # (Auto) 0.1 TH/MM3 CBC Comment AUTO DIFF Differential Total Cells Counted 100 Neutrophils % (Manual) 69 % Band Neutrophils % 13 % Lymphocytes % 8 % Monocytes % 7 % Eosinophils % 1 % Neutrophils # (Manual) 7.7 TH/MM3 Myelocytes 2 % Differential Comment FINAL DIFF MANUAL Toxic Granulation 1+ Platelet Estimate LOW Platelet Morphology Comment NORMAL Laboratory Tests Test 05/24/17 07:50 05/25/17 06:53 Blood Urea Nitrogen 26 MG/DL 19 MG/DL Creatinine 0.79 MG/DL 0.75 MG/DL Random Glucose 195 MG/DL 186 MG/DL Calcium Level 9.0 MG/DL 9.0 MG/DL Sodium Level 139 MEQ/L 142 MEQ/L Potassium Level 4.6 MEQ/L 4.4 MEQ/L Chloride Level 107 MEQ/L 106 MEQ/L Carbon Dioxide Level 27.0 MEQ/L 30.3 MEQ/L Anion Gap 5 MEQ/L 6 MEQ/L Estimat Glomerular Filtration Rate 73 ML/MIN 78 ML/MIN Hemoglobin A1c 10.0 % Total Protein 6.3 GM/DL Albumin 2.1 GM/DL Phosphorus Level 3.1 MG/DL Magnesium Level 1.9 MG/DL Alkaline Phosphatase 59 U/L Aspartate Amino Transf (AST/SGOT) 16 U/L Alanine Aminotransferase (ALT/SGPT) 37 U/L Total Bilirubin 0.3 MG/DL Imaging Last Impressions Liver Ultrasound 05/21/17 0000 Signed Impressions: Service Date/Time: Sunday, May 21, 2017 10:32 - CONCLUSION: 1. Hepatic steatosis. 2. Gallstones 3. Limited evaluation of the right kidney. Santana Lamar MD Chest X-Ray 05/21/17 0000 Signed Impressions: Service Date/Time: Sunday, May 21, 2017 06:17 - CONCLUSION: 1. Limited suboptimal study with motion artifact. 2. No definite acute cardiac pulmonary disease. Austin Orellana MD Head CT 05/20/171928 Signed Impressions: Service Date/Time: Saturday, May 20, 2017 19:55 - CONCLUSION: 1. No acute findings. Retention cyst right maxillary sinus. Jakob Scruggs MD Physical Exam GENERAL: Obese patient. SKIN: No rashes. Ecchymosis noted. HEAD: Atraumatic. Normocephalic. No temporal or scalp tenderness. EYES: Pupils equal round and reactive. Extraocular motions intact. No scleral icterus. No injection or drainage. ENT: Nose without bleeding, purulent drainage or septal hematoma. Throat without erythema, tonsillar hypertrophy or exudate. Uvula midline. Airway patent. NECK: Large neck. CARDIOVASCULAR: Regular rate and rhythm without murmurs, gallops, or rubs. RESPIRATORY: Breath sounds equal bilaterally. Occ Wheezing noted. Basilar crackles. GASTROINTESTINAL: Abdomen soft, non-tender, nondistended. Obese. MUSCULOSKELETAL: Extremities without clubbing, cyanosis. Significant swelling bilateral LE upto knees pitting edema. Some erythema noted, minimal warmth. Some skin breaks noted R> L LE. NEUROLOGICAL: Confused, moans and groans, moves extremities spontaneously. Did not follow commands for me. Psych cooperative IV line sites with no e/o infection. Assessment & Plan Remarks Strep Grp B bacteremia sources: skin, GI. Bilateral R> L LE cellulitis. Back pain. reports chronic pain with increase in intensity and severity. Acute renal failure on admit appears improving today. Hypercapnic resp failure: Sleep apnea based on history HTN DM2 uncontrolled. Obesity BMI 49.7 kg/m2 Recs: Continue Ceftriaxone IV change to q12 for possible meningitis/epidural abscess. Follow repeat blood cultures. 2D ECHO reviewed no vegetations. MRI L spine today MRI Brain in view of confusion. LP today. Orders entered by me. Onurw to hold heparin prophylaxis. D.w pts spouse in room change in condition and above new plan for the day. Explained that if this is epidural abscess given her increase in back pain then confusion can be explained based on possible meningitis. Dw pts spouse the risks benefits of LP and information that can be obtained from CSF fluid. Insert Chiu to monitor I/O (pt AMS, receiving lasix and contrast today) UA from new chiu. Follow clinically. Follow culture susceptibility. Consult Neurology Consider EEG given periods of unresponsiveness. CXR reviewed by me: congestive pattern. D/w pt: No living will in place. Does not want life prolonging measures. Would like to address living will soon. Time spent in excess of 40 mins. Critical thinking and decision making, coordination of care, review of Nan Jorgensen MD May 25, 2017 16:26
[2017-05-25] MEDS: cefTRIAXone INJ 2,000 MG in SODIUM CHLORIDE 0.9% INJ 100 ML IV SCH (17:39)
--- NOTE | 2017-05-25 17:59 | HHI.PR ---
Subjective Remarks 66 YOObese WF with Hypercapnoea, Cellulitis, Bactremia had Percocet for pain No Fever has more pain at BS lethargic, had pain meds Objective Vital Signs Vital Signs Date Time Temp Pulse Resp B/P (MAP) Pulse Ox O2 Delivery O2 Flow Rate FiO2 05/25/17 16:00 99.8 97 18 181/81 (114) 97 05/25/17 12:00 99.1 96 18 172/74 (106) 90 05/25/17 10:46 90 05/25/17 08:50 92 Nasal Cannula 2.00 05/25/17 08:00 98.7 94 20 164/71 (102) 90 05/25/17 07:44 94 Nasal Cannula 2.00 05/25/17 04:22 93 Nasal Cannula 3.00 05/25/17 04:00 98.5 89 20 180/74 (109) 96 05/25/17 03:34 90 05/25/17 00:00 97.3 89 20 190/79 (116) 90 05/24/17 20:00 97.6 88 20 176/73 (107) 96 194/77 (116) 05/24/17 19:43 90 Nasal Cannula 4.00 I/O 05/24/17 05/24/17 05/24/17 05/25/17 05/25/17 05/25/17 07:00 15:00 23:00 07:00 15:00 23:00 Intake Total 100 ml Output Total 550 ml 350 ml Balance -550 ml -250 ml IV Total 100 ml Output Urine Total 550 ml 350 ml # Voids 1 1 2 2 # Bowel Movements 0 0 Result Diagram: 05/25/17 0653 05/25/17 0653 Objective Remarks GENERAL: Morbidly obese WF, mild sob SKIN: Warm and dry. HEAD: Normocephalic. EYES: No scleral icterus. No injection or drainage. NECK: Supple, trachea midline. No JVD or lymphadenopathy. CARDIOVASCULAR: Regular rate and rhythm without murmurs, gallops, or rubs. RESPIRATORY: Breath sounds equal bilaterally. No accessory muscle use. GASTROINTESTINAL: Abdomen soft, non-tender, nondistended. MUSCULOSKELETAL: No cyanosis, or edema. has swelling and redness of legs BACK: Nontender without obvious deformity. No CVA tenderness. A/P Assessment and Plan Hypercapnoic Resp Insuff CHE or Obesity Hypoventilation synd Cellulitis legs Bactremia back pain PLAN: Aerosol nebs CPAP prn Wean 02 to keep sat 88-92% Dw pt and her . Going for MRI Spine Abx per Dima Suárez MD May 25, 2017 17:59
--- NOTE | 2017-05-25 18:04 | PD.RAD ---
Post Procedure Progress Note Pre Procedure Diagnosis: (1) Altered mental status Post Procedure Diagnosis: (1) Altered mental status Procedure Date: May 25, 2017 Supervising Radiologist: Shoaib Davis Estimated blood loss: none Anesthesia: Local Plan of Activity Patient to Unit: Nursing Unit Patient Condition: Poor Additional Comments: LP completed without difficulty. 17cc of yellow tinged fluid removed. opening pressure 19. Full dictated report to follow See PACS Report for procedural detail/treatment Shoaib Davis MD May 25, 2017 18:04
[2017-05-25 19:16] LABS: BACTERIA, URINE RARE /hpf; BLOOD, URINE LARGE (NEG); GLUCOSE,URINE 70 mg/dL (NEG); KETONE, URINE 10 mg/dL (NEG); MUCUS URINE FEW /lpf (OCC); NITRITE,URINE NEG (NEG); PH, URINE 5.5 (5.0-8.5); SQUAMOUS EPITHELIAL CELL URINE 1 /hpf (0-5); URIC ACID CRYSTALS, URINE MANY /hpf; URINE COLOR YELLOW (YELLW/STRAW)
[2017-05-25 19:17] LABS: COMMENT (UR) CATH-CULTURE IND; CULTURE IF INDICATED CATH CULTURE IND
[2017-05-25] MEDS ORDERED: GADODIAMIDE PF 287 MG/ML 5 ML VIAL (for RAD MRI) IVCONTRAST ONE (19:34)
--- NOTE | 2017-05-25 20:20 | RADRPT ---
EXAM DATE/TIME: 05/25/2017 19:02 [facility] COMPARISON: No previous studies available for comparison. INDICATIONS : Abscess. CONTRAST: 24 cc Omniscan (gadodiamide) IV MEDICAL HISTORY : Hypertension. Diabetes mellitus type 1. SURGICAL HISTORY : None. ENCOUNTER: Initial ACUITY: 1 day PAIN SCORE: 0/10 LOCATION: Head. TECHNIQUE: Multiplanar, multisequence MRI of the brain was performed both prior to and following the administrat ion of paramagnetic contrast. FINDINGS: CEREBRUM: The ventricles are normal for age. No evidence of midline shift, mass lesion, hemorrhage or acute in farction. No extraaxial fluid collections are seen. The pituitary gland and suprasellar cistern are normal in configuration. WHITE MATTER: No significant signal abnormalities are seen in the white matter. POSTERIOR FOSSA: The cerebellum and brainstem are intact. The 4th ventricle is midline. The cerebellopontine angle is unremarkable. The cerebellar tonsils are normal in position. DIFFUSION IMAGING: No focal areas of restricted diffusion are seen. No evidence of acute infarction. EXTRACRANIAL: A small mucous retention cyst is present in the base of the right maxillary antrum. POST-CONTRAST: No abnormal areas of parenchymal or dural enhancement. No evidence of blood-brain barrier breakdown. CONCLUSION: No acute intracranial findings. Santana Arzate MD on May 25, 2017 at 20:16 Board Certified Radiologist. This report was verified electronically.
[2017-05-25] MEDS: FUROSEMIDE 20 MG/2 ML VIAL IV PUSH SCH (21:05)
[2017-05-25 21:12] LABS: LACTIC ACID,CSF 2.3 MMOL/L (0.0-3.0)
[2017-05-25 21:25] LABS: GROSS BLOOD TUBE #1 1+ (0); GROSS BLOOD TUBE #2 1+ (0); SUPERNATE COLOR TUBE #1 CLEAR (CLEAR); SUPERNATE COLOR TUBE #2 CLEAR (CLEAR); SUPERNATE COLOR TUBE #3 CLEAR (CLEAR); VOLUME TUBE # 1 2.9 ML; VOLUME TUBE # 2 4.5 ML; VOLUME TUBE # 3 3.5 ML; WBC TUBE #1 35 /MM3 (0-10)
[2017-05-25 21:26] LABS: CSF EOSINOPHILS 1 %; CSF LYMPHOCYTES 51 %; CSF MONOCYTES 7 %; CSF NEUTROPHILS 39 %; GROSS BLOOD TUBE #3 1+ (0); GROSS BLOOD TUBE #4 1+ (0); SUPERNATE COLOR TUBE #4 CLEAR (CLEAR); VOLUME TUBE # 4 3.5 ML
--- NOTE | 2017-05-25 23:10 | RADRPT ---
EXAM DATE/TIME: 05/25/2017 19:02 [facility] COMPARISON: No previous studies available for comparison. INDICATIONS : Pain. MEDICAL HISTORY : Diabetes mellitus type 2. Hypertension. SURGICAL HISTORY : None. ENCOUNTER: Initial ACUITY: 1 day PAIN SCORE: 5/10 LOCATION: Back. TECHNIQUE: Multiplanar multisequence MRI of the lumbar spine was performed without contrast. FINDINGS: No fracture or subluxation of the lumbar spine. Vertebral bodies have normal height. Normal conus ter minates at the level of L1. T12-L1: The disc is normal. Very mild bilateral facet osteoarthritis. No foraminal or spinal stenosis. L1-L2: The disc is normal. Very mild bilateral facet osteoarthritis. No foraminal or spinal stenosis. L2-L3: The disc is desiccated and has mild loss of height. There is diffuse bulging of the disc annulus and mild to moderate bilateral facet osteoarthritis. No significant foraminal or spinal stenosis. L3-L4: Heterogeneous including patchy bright T2 signal abnormality seen of the L3/L4 disc. There is edema-li ke signal with decreased T1 extending into the adjacent vertebral bodies, L3 more so than L4. The dis c has moderate loss of height. There is moderate, diffuse disc osteophyte complex and moderate bilate ral facet osteoarthritis. There is mild to moderate spinal stenosis without definite transiting nerve root impingement. There is mild bilateral foraminal stenosis. L4-L5: The disc is desiccated and has moderate loss of height. There is small, broad/diffuse disc osteophyte complex and moderate bilateral facet osteoarthritis. No significant foraminal stenosis. There is mil d to moderate right and mild left foraminal stenosis. L5-S1: Disc height and hydration within normal limits. Mild bilateral facet osteoarthritis. No foraminal or spinal stenosis. Benign-appearing cysts are seen of both kidneys. CONCLUSION: 1. Atypical signal changes of the L3/L4 disc and with associated abnormal signal in the adjacent vert ebral bodies. These findings are nonspecific but discitis and osteomyelitis should be included in the differential. Mild to moderate spinal stenosis at this level. I don't see an epidural abscess. 2. Otherwise typical appearing multilevel degenerative changes as above. There is mild to moderate ri ght and mild left foraminal stenosis at L4/L5. Generally no or minimal degrees of foraminal encroachm ent elsewhere. Santana Eric MD on May 25, 2017 at 23:03 Board Certified Radiologist. This report was verified electronically.
[2017-05-26] VITALS (12 sets, daily range): BP systolic 140–215; BP diastolic 62–94; PULSE 92–98; RESP 16–24; TEMP 97.4–100; O2SAT 90–99
[2017-05-26] MEDS: cloNIDine HCL 0.1 MG TAB PO PRN (03:38)
[2017-05-26] MEDS: CHLORHEXIDINE GLUCONATE 2 % 1 PACK (2 CLOTHS) TOP SCH (03:51)
[2017-05-26] MEDS: INSULIN NovoLIN REGULAR SUPPLEMENTAL SCALE SQ SCH ×5 (03:54→20:00)
[2017-05-26] MEDS: cefTRIAXone INJ 2,000 MG in SODIUM CHLORIDE 0.9% INJ 100 ML IV SCH ×2 (04:00→17:06)
[2017-05-26] MEDS ORDERED: ENALAPRILAT 1.25 MG/ML VIAL IV PUSH PRN (07:30)
[2017-05-26] MEDS: POTASSIUM CHLORIDE 10 MEQ CONTROLLED RELEASE TAB PO SCH ×2 (08:14→21:30)
[2017-05-26] MEDS: FUROSEMIDE 20 MG/2 ML VIAL IV PUSH SCH ×2 (08:14→17:07)
[2017-05-26] MEDS: FAMOTIDINE 20 MG/2 ML VIAL IV PUSH SCH ×2 (08:14→21:31)
[2017-05-26] MEDS: DOCUSATE SODIUM 50 MG/SENNA 8.6 MG TAB PO SCH ×2 (08:14→21:30)
[2017-05-26] MEDS: SODIUM CHLORIDE 0.9% FLUSH 10 ML FLUSH IV FLUSH SCH ×2 (08:14→21:31)
[2017-05-26] MEDS: INSULIN DETEMIR 100 UNITS/ML VIAL SQ SCH ×2 (08:15→21:00)
[2017-05-26] MEDS: LISINOPRIL 10 MG TAB PO SCH (08:15)
[2017-05-26] MEDS: RESP: ALBUTEROL 2.5 MG/IPRATROPIUM 0.5 MG NEB (SCH) NEB ×2 (08:32→19:44)
[2017-05-26 09:36] LABS: AUTOMATED NEUTROPHIL # 7.6 TH/MM3 (1.8-7.7); BASOPHIL # 0.1 TH/MM3 (0-0.2); BASOPHIL % 0.6 % (0.0-2.0); EOSINOPHIL # 0.1 TH/MM3 (0-0.4); EOSINOPHIL % 1.2 % (0.0-4.0); HEMATOCRIT 37.9 % (35.0-46.0); LYMPH % 15.4 % (9.0-44.0); LYMPHOCYTE # 1.6 TH/MM3 (1.0-4.8); MEAN CELL VOLUME 89.9 FL (80.0-100.0); MEAN CORPUSCULAR HEMOGLOBIN 29.3 PG (27.0-34.0); MEAN CORPUSCULAR HGB CONC 32.6 % (32.0-36.0); MONO % 9.8 % (0.0-8.0); PLATELET COUNT 143 TH/MM3 (150-450); RED BLOOD COUNT 4.22 MIL/MM3 (4.00-5.30); RED CELL DISTRIBUTION WIDTH 16.2 % (11.6-17.2); WHITE BLOOD COUNT 10.4 TH/MM3 (4.0-11.0)
[2017-05-26 09:40] LABS: HEMO FLAGS AUTO DIFF
[2017-05-26] MEDS ORDERED: MORPHINE SULFATE 4 MG/ML INJ IV PUSH PRN (09:45)
[2017-05-26 10:02] LABS: BICARBONATE 30.5 MEQ/L (21.0-32.0)
[2017-05-26 11:38] LABS: BANDS 17 % (0-6); EOSINOPHILS 6 % (0-4); METAMYELOCYTES 2 % (0-1); MYELOCYTES 3 % (0-0); NEUTROPHIL # MANUAL DIFF 8.4 TH/MM3 (1.8-7.7); POLYS (SEG NEUTROPHILS) 59 % (16-70); WBC DIFF SAMPLE 100
[2017-05-26 11:39] LABS: PLATELET ESTIMATE SMEAR LOW (NORMAL); PLATELET MORPHOLOGY ENLARGED (NORMAL); SCAN/DIFF FINAL DIFF MANUAL
[2017-05-26] MEDS: MORPHINE SULFATE 4 MG/ML INJ IV PUSH PRN ×2 (11:50→21:30)
[2017-05-26] MEDS ORDERED: PHENYTOIN INJ 1,500 MG in SODIUM CHLOR 0.9% 250 ML INJ 250 ML IV ONE (12:00)
[2017-05-26 13:30] LABS: BLOOD GAS BASE EXCESS 9.1 mmol/L (-2-2); BLOOD GAS HCO3 33 mmol/L (22-26); BLOOD GAS METHEMOGLOBIN 0.7 % (0-2); BLOOD GAS O2 HGB SATURATION 94 % (90-100); BLOOD GAS OXYGEN CONTENT 15.9 Vol % (12.0-20.0); BLOOD GAS PCO2 47 mmHg (38-42); BLOOD GAS PO2 82 mmHg (61-120); CRITICAL VALUE NO; DRAW SITE RT RADIAL; LITER FLOW 4 L/M; NUMBER OF ARTERIAL PUNCTURES 1; OXYGEN DEVICE NASAL CANNULA; STAT YES; TEMP CORR TO 98.6; ULNAR PULSE PRESENT
--- NOTE | 2017-05-26 14:45 | HHI.PR ---
Subjective Remarks Written by Dixie Fragoso, acting as scribe for Dr. Rivera on 05/26/17 at 14:42. Follow-up on patient with respiratory failure, bacteremia. Patient seen and examined. Family is at the bedside. Patient is more alert but is having increased pain in her back. She is lying in bed moaning. Objective Vitals Vital Signs Date Time Temp Pulse Resp B/P (MAP) Pulse Ox O2 Delivery O2 Flow Rate FiO2 05/26/17 12:17 97.7 98 22 182/83 (116) 90 05/26/17 08:35 93 Nasal Cannula 3.00 05/26/17 08:25 93 Nasal Cannula 2.00 05/26/17 08:05 98.7 94 20 215/94 (134) 92 05/26/17 03:37 97.4 92 24 186/84 (118) 92 05/26/17 01:26 97.6 92 24 205/92 (129) 90 05/25/17 22:46 90 05/25/17 21:17 90 Nasal Cannula 2.00 05/25/17 21:08 97.5 91 20 159/70 (99) 91 05/25/17 20:34 91 Nasal Cannula 2.50 05/25/17 16:00 99.8 97 18 181/81 (114) 97 I/O 05/25/17 05/25/17 05/25/17 05/26/17 05/26/17 05/26/17 07:00 15:00 23:00 07:00 15:00 23:00 Intake Total 200 ml Output Total 700 ml 2050 ml Balance -700 ml -1850 ml IV Total 200 ml Output Urine Total 700 ml 2050 ml # Voids 2 2 # Bowel Movements 0 Result Diagram: 05/26/17 0841 05/26/17 0842 Imaging Last Impressions Lumbar Spine MRI 05/25/17 0000 Signed Impressions: Service Date/Time: April 19:02 - CONCLUSION: 1. Atypical signal changes of the L3/L4 disc and with associated abnormal signal in the adjacent vertebral bodies. These findings are nonspecific but discitis and osteomyelitis should be included in the differential. Mild to moderate spinal stenosis at this level. I don't see an epidural abscess. 2. Otherwise typical appearing multilevel degenerative changes as above. There is mild to moderate right and mild left foraminal stenosis at L4/L5. Generally no or minimal degrees of foraminal encroachment elsewhere. Santana Eric MD Brain MRI 05/25/17 0000 Signed Impressions: Service Date/Time: April 19:02 - CONCLUSION: No acute intracranial findings. Santana Arzate MD Chest X-Ray 05/24/17 0000 Signed Impressions: Service Date/Time: Wednesday, May 24, 2017 19:28 - CONCLUSION: CHF Santana Arzate MD Liver Ultrasound 05/21/17 0000 Signed Impressions: Service Date/Time: Sunday, May 21, 2017 10:32 - CONCLUSION: 1. Hepatic steatosis. 2. Gallstones 3. Limited evaluation of the right kidney. Santana Lamar MD Head CT 05/20/171928 Signed Impressions: Service Date/Time: Saturday, May 20, 2017 19:55 - CONCLUSION: 1. No acute findings. Retention cyst right maxillary sinus. Jakob Scruggs MD Objective Remarks General: Obese female lying in hospital bed. Awake. Appears in distress secondary to back pain. Heart: Regular rate and rhythm. No murmur. Lungs: Coarse breath sounds bilaterally. Breathing is nonlabored. Abdomen: Soft, nontender, nondistended. Extremities: No lower extremity edema. Psych: More alert. Procedures None Medications and IVs Current Medications Medications (Trade) Dose Ordered Sig/Erasmo Route Start Time Stop Time Status Last Admin (Heparin Inj) 5,000 units Q8H SQ 05/20/17 22:00 Future Hold 05/25/17 13:17 Miscellaneous Information 1 Q361D XX 05/20/17 22:30 (Chlorhexidine 2% Cloth) Taper DAILY@04 TOP 05/21/17 04:00 05/17/18 03:59 05/23/17 04:00 (Chlorhexidine 2% Cloth) 3 pack UNSCH PRN TOP 05/20/17 22:30 (Tylenol) 650 mg Q6H PRN PO 05/21/17 01:30 (Duoneb Neb) 1 ampule Q2HR NEB PRN NEB 05/21/17 05:45 05/24/17 16:41 (Levemir Inj) 10 units Q12HR SQ 05/22/17 09:00 05/26/17 08:15 (D50w (Vial) Inj) 50 ml UNSCH PRN IV PUSH 05/22/17 07:30 (Glucagon Inj) 1 mg UNSCH PRN OTHER 05/22/17 07:30 (NovoLIN R SUPPLEMENTAL SCALE) 1 Q4H SQ 05/22/17 08:00 05/26/17 11:41 (Duoneb Neb) 1 ampule BID NEB NEB 05/22/17 20:00 05/26/17 08:32 (Prinivil) 10 mg DAILY PO 05/23/17 10:00 05/25/17 08:31 (Apresoline Inj) 10 mg Q6H PRN IV PUSH 05/23/17 10:00 (NS Flush) 2 ml UNSCH PRN IV FLUSH 05/24/17 12:15 05/25/17 04:47 (NS Flush) 2 ml BID IV FLUSH 05/24/17 21:00 05/26/17 08:14 (Narcan Inj) 0.4 mg UNSCH PRN IV PUSH 05/24/17 12:15 (May-Colace) 1 tab BID PO 05/24/17 21:00 05/25/17 08:31 (Milk Of Magnesia Liq) 30 ml Q12H PRN PO 05/24/17 12:15 05/24/17 13:45 (Senokot) 17.2 mg Q12H PRN PO 05/24/17 12:15 (Dulcolax Supp) 10 mg DAILY PRN RECTAL 05/24/17 12:15 (Lactulose Liq) 30 ml DAILY PRN PO 05/24/17 12:15 (Catapres) 0.1 mg Q4H PRN PO 05/24/17 12:30 05/26/17 03:38 Ceftriaxone Sodium 2000 mg/ Sodium Chloride 100 ml @ 200 mls/hr Q12H IV 05/25/17 17:00 05/26/17 04:00 (Lasix Inj) 20 mg BID@09,18 IV PUSH 05/25/17 18:00 05/26/17 08:14 (KCl) 10 meq Q12HR PO 05/26/17 09:00 (Pepcid Inj) 20 mg Q12HR IV PUSH 05/25/17 21:00 05/26/17 08:14 (Vasotec Inj) 1.25 mg Q6H PRN IV PUSH 05/26/17 07:30 05/26/17 08:14 (Morphine Inj) 3 mg Q4H PRN IV PUSH 05/26/17 11:00 05/26/17 11:50 (Dilantin Inj) 100 mg Q8HR IV 05/26/17 22:00 A/P Assessment and Plan 1. Acute hypercapnic respiratory failure: Required BiPAP while in the ICU. Likely secondary to obesity hypoventilation syndrome, obstructive sleep apnea. Appreciate pulmonology recommendations. Continue bronchodilators. Requiring increase in oxygenation to maintain O2 sats. Transfer [place] [facility] [place] observation. 2. Bacteremia, group B strep: Uncertain source. Appreciate infectious disease recommendations. Discussed with Dr. Portillo. Continue antibiotics. Repeat blood cultures are negative so far. 2-D echocardiogram shows no evidence of vegetations. MRI of the lumbar spine showing possible discitis/osteomyelitis L34. Follow-up white blood cell scan ordered. CRP 11. 3. Increased lethargy/encephalopathy yesterday. Possibly due to oversedation from narcotic medication. Dose decreased. LP completed, follow up on CSF results. MRI of the brain ordered and unremarkable. Neurology consulted per ID. more alert today. Adjust pain medications to optimize pain control. 4. Acute kidney injury: Secondary to above. Improved with IV fluids. 5. Diabetes mellitus: Monitor Accu-Cheks and cover with sliding scale insulin. BS in low 200s. Currently on Levemir 10u BID. 6. Hypertension: Accelerated this a.m - likely secondary to increased pain. Continue lisinopril. Clonidine as needed. Add Vasotec 1.25mg prn. 7. GI prophylaxis: Pepcid. 8. Deconditioning: PT/OT. 9. DVT prophylaxis: Subcutaneous heparin. This note was transcribed by lucrecia Fragoso. I, Dr. Tristin Rivera personally performed the history, physical exam, and medical decision making; and confirmed the accuracy of the information in the transcribed note. Authenticated by Dr. Tristin Rivera on 05/26/17 at 15:59. Dixie Fragoso May 26, 2017 14:45 Tristin Rivera MD May 26, 2017 15:59
--- NOTE | 2017-05-26 14:56 | RADRPT ---
EXAM DATE/TIME: 05/26/2017 13:36 [facility] COMPARISON: CHEST SINGLE AP, May 24, 2017, 19:28. INDICATIONS : Pneumonia MEDICAL HISTORY : Diabetes mellitus type II. Hypertension SURGICAL HISTORY : None. ENCOUNTER: Subsequent ACUITY: 1 day PAIN SCORE: 10/10 LOCATION: Bilateral chest FINDINGS: The patient is rotated towards the right. There are patchy areas of infiltrate in the medial right l ower lung are similar in appearance to prior. The heart is enlarged. Left lung is clear. Both nas diaphragms will delineated. CONCLUSION: Patchy infiltrates in the medial right lower lung. Ang Alonzo MD on May 26, 2017 at 14:54 Board Certified Radiologist. This report was verified electronically.
--- NOTE | 2017-05-26 15:37 | MG ---
cc: ABEL GONGORA M.D. Lab No: [id number] Date: 05/26/2017 : 1950 Age: 66 Sex: F Only photic was completed. Awake. MRI no acute findings. Admitted with confusion, lethargy, history of hypertension and hyperlipidemia. Medicines are Lasix, Rocephin, Percocet, morphine, albuterol DESCRIPTION OF RECORD The patient exhibits in the initial portion of the recording spike and wave discharges seen bilateral, seen in multiple montages. It is in a paroxysmal fashion bilaterally, likely consistent with ongoing epileptic activity. IMPRESSION Abnormal EEG due to diffuse spike and wave discharges suggestive of ongoing seizures in this patient. I am informed that the ordering physician has been informed by the electrical and instrument technician. Clinical correlation. MD SHAYLEE Ruth/JURGEN /3:18 PM /3:28 PM
--- NOTE | 2017-05-26 15:49 | HHI.IDPN ---
Subjective Subjective Remarks Delayed entry patient seen at ~ 1 pm. is a 66-year-old female presents confused and lethargic. Patient reportedly was recently seen today at an urgent care and received an injection for low back pain. Patient here denies headaches, chest pain or shortness of breath, abdominal pain or extremity pain. Patient does complain of low back pain. at bedside states that they're visiting from out of state for the past 3 months and will be returning back to their home state in a week. reports patient has chronic low back pain but this exacerbated over the last 24 hours starting yesterday morning. Patient was seen earlier today by her chiropractor for an adjustment and then was referred to an urgent care. Patient reportedly had a fever at the chiropractor's office and felt cold and clammy. At the urgent care patient was evaluated and reportedly had an injection of a nonsteroidal medication as she is diabetic and he did not want to give her a steroid injection. Patient went home about 1:00 PM she was drowsy so sat down in a chair and fell asleep according to the . He tried to awaken her at 4:30 and noticed that she was confusional and lethargic. He attempted to continue to awaken her over the next 2-3 hours and because she was not improving decided finally to call EMS to transport her to the emergency room. Patient and spouse denied any recent injury or fall. Patient was ambulatory this morning but this evening has difficulty elevating her lower extremities as well as she was generally extremely weak. Transferred to ICU for low O2 sats and lethargy/AMS. CXR with CHF, on lasix. Back pain worsening in intensity. No B/B incontinence. No LE weakness or paresthesia. No fevers No rash No diarrhea Antibiotics I attest I reviewed, obtained or updated pts home meds and current meds for name , dose, duration and frequency of medications. Reported Meds & Active Scripts Active Walker with Front Wheels (Device) 1 Mis Mis Ea .ROUTE DIRECTED Reported Novolog Mix 70-30 Inj (Insulin Aspart Prota 70%/Aspart 30%) 1,000 Unit/10 Ml Vial Unknown Dose SQ BIDAC Glimepiride 1 Mg Tab Unknown Dose PO DAILY Take with breakfast or first main meal Lisinopril-Hctz 10-12.5 Mg Tab Unknown Dose PO DAILY Metformin (Metformin HCl) 1,000 Mg Tab Unknown Dose PO BIDPC Current Medications Medications (Trade) Dose Ordered Sig/Erasmo Route Start Time Stop Time Status Last Admin (Pepcid Inj) 10 mg Q12HR IV PUSH 05/21/17 09:00 05/24/17 09:38 (Heparin Inj) 5,000 units Q8H SQ 05/20/17 22:00 05/24/17 12:28 Miscellaneous Information 1 Q361D XX 05/20/17 22:30 (Chlorhexidine 2% Cloth) 3 pack Taper DAILY@04 TOP 05/21/17 04:00 05/17/18 03:59 05/23/17 04:00 (Chlorhexidine 2% Cloth) 3 pack UNSCH PRN TOP 05/20/17 22:30 (Tylenol) 650 mg Q6H PRN PO 05/21/17 01:30 (Duoneb Neb) 1 ampule Q2HR NEB PRN NEB 05/21/17 05:45 05/24/17 16:41 (Levemir Inj) 10 units Q12HR SQ 05/22/17 09:00 05/24/17 09:36 (D50w (Vial) Inj) 50 ml UNSCH PRN IV PUSH 05/22/17 07:30 (Glucagon Inj) 1 mg UNSCH PRN OTHER 05/22/17 07:30 (NovoLIN R SUPPLEMENTAL SCALE) 1 Q4H SQ 05/22/17 08:00 05/24/17 17:28 (Duoneb Neb) 1 ampule BID NEB NEB 05/22/17 20:00 05/24/17 07:52 (Percocet 10-325 Mg) 1 tab Q4HR PRN PO 05/23/17 09:45 05/24/17 17:31 (Morphine Inj) 4 mg Q3H PRN IV PUSH 05/23/17 09:45 (Prinivil) 10 mg DAILY PO 05/23/17 10:00 05/24/17 09:41 (Apresoline Inj) 10 mg Q6H PRN IV PUSH 05/23/17 10:00 Ceftriaxone Sodium 2000 mg/ Sodium Chloride 100 ml @ 200 mls/hr Q24H IV 05/25/17 06:00 (NS Flush) 2 ml UNSCH PRN IV FLUSH 05/24/17 12:15 (NS Flush) 2 ml BID IV FLUSH 05/24/17 21:00 (Narcan Inj) 0.4 mg UNSCH PRN IV PUSH 05/24/17 12:15 (May-Colace) 1 tab BID PO 05/24/17 21:00 (Milk Of Magnesia Liq) 30 ml Q12H PRN PO 05/24/17 12:15 05/24/17 13:45 (Senokot) 17.2 mg Q12H PRN PO 05/24/17 12:15 (Dulcolax Supp) 10 mg DAILY PRN RECTAL 05/24/17 12:15 (Lactulose Liq) 30 ml DAILY PRN PO 05/24/17 12:15 (Catapres) 0.1 mg Q4H PRN PO 05/24/17 12:30 05/24/17 13:43 (Lasix Inj) 40 mg NOW ONCE IV PUSH 05/24/17 18:45 05/24/17 18:46 Lines Line sites with no e.o infection Past Medical History Diabetes Dyslipidemia Hypertension Chronic back pain sees a chiropracter. Chronic lower extremity swelling. Never had an ECHO before per pt and spouse. ? Sleep apnea. Allergies: Coded Allergies: No Known Allergies (Unverified , 05/20/17) Objective . Vital Signs Date Time Temp Pulse Resp B/P (MAP) Pulse Ox O2 Delivery O2 Flow Rate FiO2 05/26/17 12:17 97.7 98 22 182/83 (116) 90 05/26/17 08:35 93 Nasal Cannula 3.00 05/26/17 08:25 93 Nasal Cannula 2.00 05/26/17 08:05 98.7 94 20 215/94 (134) 92 05/26/17 03:37 97.4 92 24 186/84 (118) 92 05/26/17 01:26 97.6 92 24 205/92 (129) 90 05/25/17 22:46 90 05/25/17 21:17 90 Nasal Cannula 2.00 05/25/17 21:08 97.5 91 20 159/70 (99) 91 05/25/17 20:34 91 Nasal Cannula 2.50 05/25/17 16:00 99.8 97 18 181/81 (114) 97 . Laboratory Tests Test 05/25/17 06:53 05/26/17 08:41 White Blood Count 9.2 TH/MM3 10.4 TH/MM3 Red Blood Count 3.86 MIL/MM3 4.22 MIL/MM3 Hemoglobin 11.4 GM/DL 12.4 GM/DL Hematocrit 35.2 % 37.9 % Mean Corpuscular Volume 91.1 FL 89.9 FL Mean Corpuscular Hemoglobin 29.5 PG 29.3 PG Mean Corpuscular Hemoglobin Concent 32.4 % 32.6 % Red Cell Distribution Width 16.1 % 16.2 % Platelet Count 107 TH/MM3 143 TH/MM3 Mean Platelet Volume 10.7 FL 10.3 FL Neutrophils (%) (Auto) 70.1 % 73.0 % Lymphocytes (%) (Auto) 16.5 % 15.4 % Monocytes (%) (Auto) 11.5 % 9.8 % Eosinophils (%) (Auto) 1.2 % 1.2 % Basophils (%) (Auto) 0.7 % 0.6 % Neutrophils # (Auto) 6.4 TH/MM3 7.6 TH/MM3 Lymphocytes # (Auto) 1.5 TH/MM3 1.6 TH/MM3 Monocytes # (Auto) 1.1 TH/MM3 1.0 TH/MM3 Eosinophils # (Auto) 0.1 TH/MM3 0.1 TH/MM3 Basophils # (Auto) 0.1 TH/MM3 0.1 TH/MM3 CBC Comment AUTO DIFF AUTO DIFF Differential Total Cells Counted 100 100 Neutrophils % (Manual) 69 % 59 % Band Neutrophils % 13 % 17 % Lymphocytes % 8 % 8 % Monocytes % 7 % 5 % Eosinophils % 1 % 6 % Neutrophils # (Manual) 7.7 TH/MM3 8.4 TH/MM3 Myelocytes 2 % 3 % Differential Comment FINAL DIFF MANUAL FINAL DIFF MANUAL Toxic Granulation 1+ Platelet Estimate LOW LOW Platelet Morphology Comment NORMAL ENLARGED Metamyelocytes 2 % Red Cell Morphology Comment NORMAL Laboratory Tests Test 05/25/17 06:53 05/26/17 08:42 Blood Urea Nitrogen 19 MG/DL 18 MG/DL Creatinine 0.75 MG/DL 0.88 MG/DL Random Glucose 186 MG/DL 213 MG/DL Total Protein 6.3 GM/DL Albumin 2.1 GM/DL Calcium Level 9.0 MG/DL 9.8 MG/DL Phosphorus Level 3.1 MG/DL Magnesium Level 1.9 MG/DL Alkaline Phosphatase 59 U/L Aspartate Amino Transf (AST/SGOT) 16 U/L Alanine Aminotransferase (ALT/SGPT) 37 U/L Total Bilirubin 0.3 MG/DL Sodium Level 142 MEQ/L 140 MEQ/L Potassium Level 4.4 MEQ/L 4.0 MEQ/L Chloride Level 106 MEQ/L 100 MEQ/L Carbon Dioxide Level 30.3 MEQ/L 30.5 MEQ/L Anion Gap 6 MEQ/L 10 MEQ/L Estimat Glomerular Filtration Rate 78 ML/MIN 64 ML/MIN C-Reactive Protein 11.00 MG/DL Microbiology Date/Time Source Procedure Growth Status 05/25/17 17:56 Cerebral Spinal Fluid Lumbar Puncture Fungal Smear - Final NO FUNGAL ELEMENTS SEEN. Resulted 05/25/17 17:56 Cerebral Spinal Fluid Lumbar Puncture Fungal Culture Pending Resulted 05/25/17 17:56 Cerebral Spinal Fluid Lumbar Puncture Acid Fast Stain - Final NO ACID FAST BACILLI SEEN Resulted 05/25/17 17:56 Cerebral Spinal Fluid Lumbar Puncture Mycobacterial Culture Pending Resulted 05/25/17 17:56 Cerebral Spinal Fluid Lumbar Puncture Gram Stain - Final Resulted 05/25/17 17:56 Cerebral Spinal Fluid Lumbar Puncture CSF Culture - Preliminary NO GROWTH IN 24 HOURS. Resulted 05/25/17 17:23 Urine Catheterized Urine Urine Culture - Preliminary NO GROWTH IN 24 HOURS. Resulted Imaging Last Impressions Liver Ultrasound 05/21/17 0000 Signed Impressions: Service Date/Time: Sunday, May 21, 2017 10:32 - CONCLUSION: 1. Hepatic steatosis. 2. Gallstones 3. Limited evaluation of the right kidney. Santana Lamar MD Chest X-Ray 05/21/17 0000 Signed Impressions: Service Date/Time: Sunday, May 21, 2017 06:17 - CONCLUSION: 1. Limited suboptimal study with motion artifact. 2. No definite acute cardiac pulmonary disease. Ausitn Orellana MD Head CT 05/20/17 1929 Signed Impressions: Service Date/Time: Saturday, May 20, 2017 19:55 - CONCLUSION: 1. No acute findings. Retention cyst right maxillary sinus. Jakob Scruggs MD Physical Exam GENERAL: Obese patient. SKIN: No rashes. Ecchymosis noted. HEAD: Atraumatic. Normocephalic. No temporal or scalp tenderness. EYES: Pupils equal round and reactive. Extraocular motions intact. No scleral icterus. No injection or drainage. ENT: Nose without bleeding, purulent drainage or septal hematoma. Throat without erythema, tonsillar hypertrophy or exudate. Uvula midline. Airway patent. NECK: Large neck. CARDIOVASCULAR: Regular rate and rhythm without murmurs, gallops, or rubs. RESPIRATORY: Breath sounds equal bilaterally. Occ Wheezing noted. Basilar crackles. GASTROINTESTINAL: Abdomen soft, non-tender, nondistended. Obese. MUSCULOSKELETAL: Extremities without clubbing, cyanosis. Significant swelling bilateral LE upto knees pitting edema. Some erythema noted, minimal warmth. Some skin breaks noted R> L LE. NEUROLOGICAL: Confused, moans and groans, moves extremities spontaneously. Did not follow commands for me. Psych cooperative IV line sites with no e/o infection. Assessment & Plan Remarks Strep Grp B bacteremia sources: skin, GI. Rule out epidural abscess,meningitis. Bilateral R> L LE cellulitis. ? aspiration PNA Back pain. reports chronic pain with increase in intensity and severity. Acute renal failure on admit appears improving today. Hypercapnic resp failure: Sleep apnea based on history HTN DM2 uncontrolled. Obesity BMI 49.7 kg/m2 Recs: Continue Ceftriaxone IV q12 for possible meningitis/epidural abscess. Follow repeat blood cultures. 2D ECHO reviewed no vegetations. MRI L spine reviewed concerning for possible discitis given clinical picture. MRI Brain normal. WBC scan process started today. Transferred to ICU imagining part will be attempted in am if condition permits. Repeat CXR today. Rod.w pts spouse in room change in condition and above new plan for the day. Follow clinically. Follow culture susceptibility. Nan Portillo MD May 26, 2017 15:49
--- NOTE | 2017-05-26 18:41 | HHI.PR ---
Subjective Remarks 66 YOObese WF with Hypercapnoea, Cellulitis, Bactremia had Percocet for pain No Fever has more pain Tr to [facility] had Spinal tap lethargic, had pain meds Objective Vital Signs Vital Signs Date Time Temp Pulse Resp B/P (MAP) Pulse Ox O2 Delivery O2 Flow Rate FiO2 05/26/17 12:17 97.7 98 22 182/83 (116) 90 05/26/17 08:35 93 Nasal Cannula 3.00 05/26/17 08:25 93 Nasal Cannula 2.00 05/26/17 08:05 98.7 94 20 215/94 (134) 92 05/26/17 03:37 97.4 92 24 186/84 (118) 92 05/26/17 01:26 97.6 92 24 205/92 (129) 90 05/25/17 22:46 90 05/25/17 21:17 90 Nasal Cannula 2.00 05/25/17 21:08 97.5 91 20 159/70 (99) 91 05/25/17 20:34 91 Nasal Cannula 2.50 I/O 05/25/17 05/25/17 05/25/17 05/26/17 05/26/17 05/26/17 07:00 15:00 23:00 07:00 15:00 23:00 Intake Total 200 ml Output Total 700 ml 2050 ml Balance -700 ml -1850 ml IV Total 200 ml Output Urine Total 700 ml 2050 ml # Voids 2 2 # Bowel Movements 0 Result Diagram: 05/26/17 0841 05/26/17 0842 Objective Remarks GENERAL: Morbidly obese WF, mild sob SKIN: Warm and dry. HEAD: Normocephalic. EYES: No scleral icterus. No injection or drainage. NECK: Supple, trachea midline. No JVD or lymphadenopathy. CARDIOVASCULAR: Regular rate and rhythm without murmurs, gallops, or rubs. RESPIRATORY: Breath sounds equal bilaterally. No accessory muscle use. GASTROINTESTINAL: Abdomen soft, non-tender, nondistended. MUSCULOSKELETAL: No cyanosis, or edema. has swelling and redness of legs BACK: Nontender without obvious deformity. No CVA tenderness. A/P Assessment and Plan Hypercapnoic Resp Insuff CHE or Obesity Hypoventilation synd Cellulitis legs Bactremia back pain PLAN: Aerosol nebs CPAP prn Wean 02 to keep sat 88-92% Dw pt and her . Abx per Dima Suárez MD May 26, 2017 18:41
[2017-05-26] MEDS: PHENYTOIN INJ 100 MG/2 ML VIAL IV SCH (21:30)
--- NOTE | 2017-05-26 23:47 | MB ---
cc: SHERIDAN CHILD MD DATE OF CONSULTATION 05/26/17 REASON FOR CONSULTATION Altered mental status. HISTORY OF PRESENT ILLNESS The patient is confused and a poor historian thus the medical information is obtained from the records and registered nurse. Ms. Crockett is a 75-yvxhl-wie female who presented to the emergency room at [facility] in a confused and lethargic state. The patient was reportedly in an urgent care , received nonsteroidal injectable medication after being seen by the chiropractor, then she felt fever and clammy at home, a few hours later she was drowsy, transferred to the Emergency Room of [facility]. Neurology consult was placed because the patient was noted with worsening confusion REVIEW OF SYSTEMS A 12-point review of systems is negative except for what is stated in the HPI. PAST MEDICAL HISTORY Hypertension, diabetes, morbid obesity, chronic back pain. PAST SURGICAL HISTORY section. MEDICATIONS 1. NovoLog. 2. Glimepiride. 3. Lisinopril. 4. Hydrochlorothiazide. 5. Metformin. FAMILY HISTORY Noncontributory. SOCIAL HISTORY Negative for tobacco or illicit drugs or abuse of alcohol. PHYSICAL EXAMINATION GENERAL: Morbidly obese, lethargic. HEENT: Atraumatic, normocephalic. Intact hearing. Intact vision. NECK: Supple. No signs of meningeal irritation. CARDIOVASCULAR: Regular rate and rhythm. RESPIRATORY: Clear to auscultation. No wheezes. GASTROINTESTINAL: Soft, nontender. MUSCULOSKELETAL: No cyanosis, edema or clubbing. NEUROLOGIC EXAMINATION: Awake, aware, oriented to person, place, not to time. No dysarthria. No dysphagia. Occasional episodes of disorientation and lethargic. Cranial nerve examination is unremarkable, grossly intact. Pupils 3 mm bilaterally equally reacting to light. No facial asymmetry. No nystagmus. Moves all extremities equally. No abnormal movement. Reflexes 1+ bilateral and symmetrical. DIAGNOSTIC TESTS LABORATORY DATA White BC 10.4, hemoglobin 12.4, platelet 143, sodium 141, chloride 110, potassium 4.9, BUN 34, creatinine 1, ALT 48, AST 23. UDS positive for beta hydroxybutyrate. INR 1. CSF white blood cells 35, RBC 797, glucose 122, protein 105.5, lactic acid 2.3. DIAGNOSTIC IMAGING - Brain MRI with and without contrast was reported with no acute intracranial findings. Lumbar spine MRI without contrast revealed atypical signal change at L3-L4 disk and associated abnormal signal in the adjacent vertebral bodies, nonspecific finding, diskitis and osteomyelitis should be included in differential. Mild to moderate spinal stenosis at this level. No epidural abscess. DIAGNOSTIC IMPRESSION 1. Encephalopathy. - An EEG revealed bihemispheric sharp wave, spike and wave, diffuse discharges suggestive of ongoing seizure activity thus I loaded the patient with Dilantin 15 milligrams per kg and maintenance Dilantin at 100 milligrams three times daily. Ordered a Dilantin level at 6:00 p.m. and next a.m. Dilantin level was therapeutic at 6:00 p.m. - Other possible etiological causes is infectious and metabolic etiology despite the finding of nonconvulsive seizure activity which may compound a severe metabolic or infectious clinical setting. 2. Respiratory failure. 3. Bacteremia, group B strep. 4. JAMES. 5. Diabetes mellitus. PLAN 1. Phenytoin 100 milligrams three times daily q. 8. 2. Seizure precautions. 3. Dilantin level next a.m. 4. Neuro checks q. one hourly. 5. Hold narcotic medications. 6. Continue supportive medical therapy. 7. GI prophylaxis. 8. DVT prophylaxis, subcu heparin. Thank you for the opportunity to participate in the care of your patient. MD GALINDO Cortez/KEANU /10:45 PM /11:05 PM LISA
[2017-05-27] VITALS (13 sets, daily range): BP systolic 128–174; BP diastolic 64–72; PULSE 94–102; RESP 16–26; TEMP 98–100.9; O2SAT 90–96
[2017-05-27] MEDS: CHLORHEXIDINE GLUCONATE 2 % 1 PACK (2 CLOTHS) TOP SCH (01:05)
[2017-05-27] MEDS: MORPHINE SULFATE 4 MG/ML INJ IV PUSH PRN ×3 (01:41→10:28)
[2017-05-27] MEDS: INSULIN NovoLIN REGULAR SUPPLEMENTAL SCALE SQ SCH ×6 (04:00→20:00)
[2017-05-27] MEDS: PHENYTOIN INJ 100 MG/2 ML VIAL IV SCH ×3 (06:02→20:38)
[2017-05-27] MEDS: cefTRIAXone INJ 2,000 MG in SODIUM CHLORIDE 0.9% INJ 100 ML IV SCH ×2 (06:02→17:55)
--- NOTE | 2017-05-27 08:27 | HHI.PR ---
Subjective Remarks Follow up back pain, hypertension, respiratory distress. Patient still complaining of low back pain. Morphine does help somewhat. Per nursing, patient moans most of the time. BP and respiratory status have improved. Objective Vitals Vital Signs Date Time Temp Pulse Resp B/P (MAP) Pulse Ox O2 Delivery O2 Flow Rate FiO2 05/27/17 06:00 98 05/27/17 04:00 98.5 94 22 174/72 (106) 93 05/27/17 04:00 93 Nasal Cannula 2.00 05/27/17 04:00 94 05/27/17 02:00 97 05/27/17 00:00 96 Nasal Cannula 2.00 05/27/17 00:00 95 05/27/17 00:00 98.6 95 23 153/67 (95) 92 05/26/17 22:00 95 05/26/17 21:00 96 05/26/17 21:00 97 Nasal Cannula 2.00 05/26/17 20:01 98.8 05/26/17 20:00 97 05/26/17 20:00 97 22 163/69 (100) 99 05/26/17 19:45 91 Nasal Cannula 4.00 05/26/17 16:00 100.0 95 16 140/62 (88) 95 05/26/17 12:17 97.7 98 22 182/83 (116) 90 05/26/17 08:35 93 Nasal Cannula 3.00 05/26/17 08:25 93 Nasal Cannula 2.00 I/O 05/26/17 05/26/17 05/26/17 05/27/17 05/27/17 05/27/17 07:00 15:00 23:00 07:00 15:00 23:00 Intake Total 200 ml 380 ml 100 ml Output Total 2050 ml 1000 ml 800 ml Balance -1850 ml -620 ml -700 ml IV Total 200 ml 380 ml 100 ml Output Urine Total 2050 ml 1000 ml 800 ml Result Diagram: 05/26/17 0841 05/26/1742 Imaging Last Impressions Chest X-Ray 05/26/17 0000 Signed Impressions: Service Date/Time: Friday, May 26, 2017 13:36 - CONCLUSION: Patchy infiltrates in the medial right lower lung. Ang Alonzo MD Lumbar Spine MRI 05/25/17 0000 Signed Impressions: Service Date/Time: April 19:02 - CONCLUSION: 1. Atypical signal changes of the L3/L4 disc and with associated abnormal signal in the adjacent vertebral bodies. These findings are nonspecific but discitis and osteomyelitis should be included in the differential. Mild to moderate spinal stenosis at this level. I don't see an epidural abscess. 2. Otherwise typical appearing multilevel degenerative changes as above. There is mild to moderate right and mild left foraminal stenosis at L4/L5. Generally no or minimal degrees of foraminal encroachment elsewhere. Santana Eric MD Brain MRI 05/25/17 0000 Signed Impressions: Service Date/Time: April 19:02 - CONCLUSION: No acute intracranial findings. Santana Arzate MD Liver Ultrasound 05/21/17 0000 Signed Impressions: Service Date/Time: Sunday, May 21, 2017 10:32 - CONCLUSION: 1. Hepatic steatosis. 2. Gallstones 3. Limited evaluation of the right kidney. Santana Lamar MD Head CT 05/20/[id number] Signed Impressions: Service Date/Time: Saturday, May 20, 2017 19:55 - CONCLUSION: 1. No acute findings. Retention cyst right maxillary sinus. Jakob Scruggs MD Objective Remarks General: Obese female in no acute distress. Appears uncomfortable. Heart: Regular rate and rhythm. No murmur. Lungs: Coarse breath sounds bilaterally. Breathing is nonlabored. Abdomen: Soft, nontender, nondistended. Extremities: No lower extremity edema. Psych: Alert, answers questions. Procedures None Urinary Catheter: Yes Assessment to: Continue Reid insert reason: Measure Accurate Output Date of Insertion: May 25, 2017 Vascular Central Line Catheter: No A/P Assessment and Plan 1. Acute hypercapnic respiratory failure: Required BiPAP while in the ICU. Likely secondary to obesity hypoventilation syndrome, obstructive sleep apnea. Appreciate pulmonology recommendations. Continue bronchodilators. Respiratory status improved this morning. Requiring 2L oxygen. 2. Bacteremia, group B strep: Uncertain source. Appreciate infectious disease recommendations. Discussed with Dr. Portillo. Continue antibiotics. Repeat blood cultures are negative so far. 2-D echocardiogram shows no evidence of vegetations. MRI of the lumbar spine showing possible discitis/osteomyelitis L34. Follow-up white blood cell scan ordered. CRP 11. 3. Increased lethargy/encephalopathy: Improved somewhat. Possibly due to oversedation from narcotic medication. Dose adjusted. LP completed, follow up on CSF results. MRI of the brain ordered and unremarkable. Appreciate Neurology recommendations. More alert today. 4. Acute kidney injury: Secondary to above. Improved with IV fluids. Labs are pending today. 5. Diabetes mellitus: Monitor Accu-Cheks and cover with sliding scale insulin. BS in low 200s. Currently on Levemir 10u BID. 6. Hypertension: Likely increased secondary to increased pain. Better overnight Continue lisinopril. Clonidine, Vasotec as needed. 7. GI prophylaxis: Pepcid. 8. Deconditioning: PT/OT. 9. DVT prophylaxis: Subcutaneous heparin. Tristin Rivera MD May 27, 2017 08:27
[2017-05-27] MEDS: NS + KCL 20 MEQ INJ 1,000 ML IV SCH (09:00)
[2017-05-27] MEDS: SODIUM CHLORIDE 0.9% FLUSH 10 ML FLUSH IV FLUSH SCH ×2 (09:00→20:38)
[2017-05-27] MEDS: INSULIN DETEMIR 100 UNITS/ML VIAL SQ SCH ×2 (09:00→20:39)
[2017-05-27] MEDS: DOCUSATE SODIUM 50 MG/SENNA 8.6 MG TAB PO SCH ×2 (09:00→20:39)
[2017-05-27] MEDS: LISINOPRIL 10 MG TAB PO SCH (09:04)
[2017-05-27] MEDS: FAMOTIDINE 20 MG/2 ML VIAL IV PUSH SCH ×2 (10:28→20:40)
--- NOTE | 2017-05-27 10:28 | RADRPT ---
EXAM DATE/TIME: 05/26/2017 13:36 [facility] COMPARISON: MRI LUMBAR SPINE W/O CONTRAST, May 25, 2017, 19:02. INDICATIONS : Lower back pain for 2 days. DOSE: 20.4 mCi Tc99m Ceretec labeled white blood cells IV PLANAR IMAGIN min, 3 hrs, 20 hrs MEDICAL HISTORY : Hypertension. SURGICAL HISTORY : None. ENCOUNTER: Initial ACUITY: 1 day PAIN SCALE: 4/10 LOCATION: Bilateral Back. TECHNIQUE: Following the in vitro labeling of autologous white cells and reinjection, whole body scan was perfor med at specified times. FINDINGS: There is no abnormal biodistribution of radiotracer. In particular, no definite activity is identifie d within the lumbar spine at the L3-4 level. CONCLUSION: No abnormal uptake identified to suggest infection. Nikita Damon MD on May 27, 2017 at 10:25 Board Certified Radiologist. This report was verified electronically.
[2017-05-27] MEDS: FUROSEMIDE 20 MG/2 ML VIAL IV PUSH SCH ×2 (10:29→17:55)
[2017-05-27] MEDS: POTASSIUM CHLORIDE 10 MEQ CONTROLLED RELEASE TAB PO SCH ×2 (10:30→20:39)
[2017-05-27] MEDS: HYDROmorphone HCL PF 0.5 MG/0.5 ML SYRINGE IV PUSH PRN ×3 (12:26→21:31)
[2017-05-27 12:55] LABS: AUTOMATED NEUTROPHIL # 8.6 TH/MM3 (1.8-7.7); BASOPHIL # 0.1 TH/MM3 (0-0.2); BASOPHIL % 0.7 % (0.0-2.0); EOSINOPHIL # 0.1 TH/MM3 (0-0.4); EOSINOPHIL % 0.7 % (0.0-4.0); HEMATOCRIT 37.9 % (35.0-46.0); LYMPH % 14.5 % (9.0-44.0); LYMPHOCYTE # 1.7 TH/MM3 (1.0-4.8); MEAN CELL VOLUME 90.8 FL (80.0-100.0); MEAN CORPUSCULAR HEMOGLOBIN 28.9 PG (27.0-34.0); MEAN CORPUSCULAR HGB CONC 31.8 % (32.0-36.0); MONO % 9.1 % (0.0-8.0); PLATELET COUNT 166 TH/MM3 (150-450); RED BLOOD COUNT 4.17 MIL/MM3 (4.00-5.30); RED CELL DISTRIBUTION WIDTH 16.5 % (11.6-17.2); WHITE BLOOD COUNT 11.5 TH/MM3 (4.0-11.0)
[2017-05-27 12:56] LABS: HEMO FLAGS AUTO DIFF
[2017-05-27 13:14] LABS: POTASSIUM 3.9 MEQ/L (3.5-5.1)
--- NOTE | 2017-05-27 13:19 | HHI.IDPN ---
Note Infectious Disease Note ID COVERAGE. Chart reviewed. Patient is moaning but not answering questions. at bedside. Afebrile. WBC scan - no abnormal uptake. is a 66-year-old female presents confused and lethargic. Patient reportedly was recently seen today at an urgent care and received an injection for low back pain. Patient here denies headaches, chest pain or shortness of breath, abdominal pain or extremity pain. Patient does complain of low back pain. at bedside states that they're visiting from out of state for the past 3 months and will be returning back to their home state in a week. reports patient has chronic low back pain but this exacerbated over the last 24 hours starting yesterday morning. Patient was seen earlier today by her chiropractor for an adjustment and then was referred to an urgent care. Patient reportedly had a fever at the chiropractor's office and felt cold and clammy. At the urgent care patient was evaluated and reportedly had an injection of a nonsteroidal medication as she is diabetic and he did not want to give her a steroid injection. Patient went home about 1:00 PM she was drowsy so sat down in a chair and fell asleep according to the . He tried to awaken her at 4:30 and noticed that she was confusional and lethargic. He attempted to continue to awaken her over the next 2-3 hours and because she was not improving decided finally to call EMS to transport her to the emergency room. Patient and spouse denied any recent injury or fall. Patient was ambulatory this morning but this evening has difficulty elevating her lower extremities as well as she was generally extremely weak. Transferred to ICU for low O2 sats and lethargy/AMS. Lines Line sites with no e.o infection Past Medical History Diabetes Dyslipidemia Hypertension Chronic back pain sees a chiropracter. Chronic lower extremity swelling. Never had an ECHO before per pt and spouse. ? Sleep apnea. Allergies: Coded Allergies: No Known Allergies (Unverified , 05/20/17) Current Medications Medications (Trade) Dose Ordered Sig/Erasmo Route PRN Reason Start Time Stop Time Status Last Admin Dose Admin Heparin Sodium (Porcine) (Heparin Inj) 5,000 units Q8H SQ 05/20/17 22:00 Future Hold 05/25/17 13:17 Miscellaneous Information 1 [id number] XX 05/20/17 22:30 Chlorhexidine Gluconate (Chlorhexidine 2% Cloth) Taper DAILY@04 TOP 05/21/17 04:00 05/17/18 03:59 05/27/17 01:05 Chlorhexidine Gluconate (Chlorhexidine 2% Cloth) 3 pack UNSCH PRN TOP HYGIENIC CARE 05/20/17 22:30 Acetaminophen (Tylenol) 650 mg Q6H PRN PO Pain 1-4 05/21/17 01:30 Albuterol/ Ipratropium (Duoneb Neb) 1 ampule Q2HR NEB PRN NEB WHEEZING 05/21/17 05:45 05/24/17 16:41 Insulin Detemir (Levemir Inj) 10 units Q12HR SQ 05/22/17 09:00 05/27/17 09:00 Dextrose (D50w (Vial) Inj) 50 ml UNSCH PRN IV PUSH HYPOGLYCEMIA-SEE COMMENTS 05/22/17 07:30 Glucagon (Glucagon Inj) 1 mg UNSCH PRN OTHER HYPOGLYCEMIA-SEE COMMENTS 05/22/17 07:30 Insulin Human Regular (NovoLIN R SUPPLEMENTAL SCALE) 1 Q4H SQ 05/22/17 08:00 05/27/17 04:00 Lisinopril (Prinivil) 10 mg DAILY PO 05/23/17 10:00 05/27/17 09:04 Hydralazine HCl (Apresoline Inj) 10 mg Q6H PRN IV PUSH SBP> OR = 180, DBP> OR = 100 05/23/17 10:00 Sodium Chloride (NS Flush) 2 ml UNSCH PRN IV FLUSH FLUSH AFTER USING IV ACCESS 05/24/17 12:15 05/25/17 04:47 Sodium Chloride (NS Flush) 2 ml BID IV FLUSH 05/24/17 21:00 05/26/17 21:31 Naloxone HCl (Narcan Inj) 0.4 mg UNSCH PRN IV PUSH SEE LABEL COMMENTS 05/24/17 12:15 Senna/Docusate Sodium (May-Colace) 1 tab BID PO 05/24/17 21:00 05/27/17 09:00 Magnesium Hydroxide (Milk Of Magnesia Liq) 30 ml Q12H PRN PO Mild constipation 05/24/17 12:15 05/24/17 13:45 Sennosides (Senokot) 17.2 mg Q12H PRN PO Moderate constipation 05/24/17 12:15 Bisacodyl (Dulcolax Supp) 10 mg DAILY PRN RECTAL SEVERE CONSITIPATION 05/24/17 12:15 Lactulose (Lactulose Liq) 30 ml DAILY PRN PO SEVERE CONSITIPATION 05/24/17 12:15 Clonidine (Catapres) 0.1 mg Q4H PRN PO SBP>160, DBP>90 05/24/17 12:30 05/26/17 03:38 Ceftriaxone Sodium 2000 mg/ Sodium Chloride 100 ml @ 200 mls/hr Q12H IV 05/25/17 17:00 05/27/17 06:02 Furosemide (Lasix Inj) 20 mg BID@09,18 IV PUSH 05/25/17 18:00 05/27/17 10:29 Potassium Chloride (KCl) 10 meq Q12HR PO 05/26/17 09:00 05/27/17 10:30 Famotidine (Pepcid Inj) 20 mg Q12HR IV PUSH 05/25/17 21:00 05/27/17 10:28 Enalaprilat (Vasotec Inj) 1.25 mg Q6H PRN IV PUSH SBP> OR = 180, DBP> OR = 100 05/26/17 07:30 05/26/17 08:14 Phenytoin Sodium (Dilantin Inj) 100 mg Q8HR IV 05/26/17 22:00 05/27/17 06:02 Potassium Chloride/Sodium Chloride 1,000 ml @ 42 mls/hr [id number] IV 05/27/17 09:00 05/27/17 09:00 Hydromorphone HCl (Dilaudid Pf Inj) 0.2 mg Q4H PRN IV PUSH PAIN SCALE 3 TO 6 05/27/17 12:15 Hydromorphone HCl (Dilaudid Pf Inj) 0.5 mg Q4H PRN IV PUSH PAIN SCALE 7 TO 10 05/27/17 12:15 05/27/17 12:26 OBJECTIVE: Vital Signs Date Time Temp Pulse Resp B/P (MAP) Pulse Ox O2 Delivery O2 Flow Rate FiO2 05/27/17 12:56 16 05/27/17 12:15 92 Nasal Cannula 4.00 05/27/17 10:00 100 05/27/17 08:00 98.8 102 16 128/70 (89) 96 05/27/17 08:00 100 05/27/17 08:00 4.00 05/27/17 06:00 98 05/27/17 04:00 98.5 94 22 174/72 (106) 93 05/27/17 04:00 93 Nasal Cannula 2.00 05/27/17 04:00 94 05/27/17 02:00 97 05/27/17 00:00 96 Nasal Cannula 2.00 05/27/17 00:00 95 05/27/17 00:00 98.6 95 23 153/67 (95) 92 05/26/17 22:00 95 05/26/17 21:00 96 05/26/17 21:00 97 Nasal Cannula 2.00 05/26/17 20:01 98.8 05/26/17 20:00 97 05/26/17 20:00 97 22 163/69 (100) 99 05/26/17 19:45 91 Nasal Cannula 4.00 05/26/17 16:00 100.0 95 16 140/62 (88) 95 Laboratory Tests Test 05/26/17 08:41 05/27/17 12:35 White Blood Count 10.4 TH/MM3 11.5 TH/MM3 Red Blood Count 4.22 MIL/MM3 4.17 MIL/MM3 Hemoglobin 12.4 GM/DL 12.0 GM/DL Hematocrit 37.9 % 37.9 % Mean Corpuscular Volume 89.9 FL 90.8 FL Mean Corpuscular Hemoglobin 29.3 PG 28.9 PG Mean Corpuscular Hemoglobin Concent 32.6 % 31.8 % Red Cell Distribution Width 16.2 % 16.5 % Platelet Count 143 TH/MM3 166 TH/MM3 Mean Platelet Volume 10.3 FL 10.0 FL Neutrophils (%) (Auto) 73.0 % 75.0 % Lymphocytes (%) (Auto) 15.4 % 14.5 % Monocytes (%) (Auto) 9.8 % 9.1 % Eosinophils (%) (Auto) 1.2 % 0.7 % Basophils (%) (Auto) 0.6 % 0.7 % Neutrophils # (Auto) 7.6 TH/MM3 8.6 TH/MM3 Lymphocytes # (Auto) 1.6 TH/MM3 1.7 TH/MM3 Monocytes # (Auto) 1.0 TH/MM3 1.0 TH/MM3 Eosinophils # (Auto) 0.1 TH/MM3 0.1 TH/MM3 Basophils # (Auto) 0.1 TH/MM3 0.1 TH/MM3 CBC Comment AUTO DIFF AUTO DIFF Differential Total Cells Counted 100 Neutrophils % (Manual) 59 % Band Neutrophils % 17 % Lymphocytes % 8 % Monocytes % 5 % Eosinophils % 6 % Neutrophils # (Manual) 8.4 TH/MM3 Metamyelocytes 2 % Myelocytes 3 % Differential Comment FINAL DIFF MANUAL Platelet Estimate LOW Platelet Morphology Comment ENLARGED Red Cell Morphology Comment NORMAL Laboratory Tests Test 05/26/17 08:42 05/27/17 12:35 Blood Urea Nitrogen 18 MG/DL Creatinine 0.88 MG/DL Random Glucose 213 MG/DL Calcium Level 9.8 MG/DL Sodium Level 140 MEQ/L Potassium Level 4.0 MEQ/L Chloride Level 100 MEQ/L Carbon Dioxide Level 30.5 MEQ/L Anion Gap 10 MEQ/L Estimat Glomerular Filtration Rate 64 ML/MIN Microbiology Date/Time Source Procedure Growth Status 05/25/17 17:56 Cerebral Spinal Fluid Lumbar Puncture Fungal Smear - Final NO FUNGAL ELEMENTS SEEN. Resulted 05/25/17 17:56 Cerebral Spinal Fluid Lumbar Puncture Fungal Culture Pending Resulted 05/25/17 17:56 Cerebral Spinal Fluid Lumbar Puncture Acid Fast Stain - Final NO ACID FAST BACILLI SEEN Resulted 05/25/17 17:56 Cerebral Spinal Fluid Lumbar Puncture Mycobacterial Culture Pending Resulted 05/25/17 17:56 Cerebral Spinal Fluid Lumbar Puncture Gram Stain - Final Resulted 05/25/17 17:56 Cerebral Spinal Fluid Lumbar Puncture CSF Culture - Preliminary NO GROWTH IN 48 HOURS. Resulted 05/25/17 17:23 Urine Catheterized Urine Urine Culture - Final NO GROWTH IN 48 HOURS. Complete IMAGING: Tumor Localization 05/26/17 0000 Signed Impressions: Service Date/Time: Friday, May 26, 2017 13:36 - CONCLUSION: No abnormal uptake identified to suggest infection. Nikita Damon MD Chest X-Ray 05/26/17 0000 Signed Impressions: Service Date/Time: Friday, May 26, 2017 13:36 - CONCLUSION: Patchy infiltrates in the medial right lower lung. Ang Alonzo MD Lumbar Spine MRI 05/25/17 0000 Signed Impressions: Service Date/Time: April 19:02 - CONCLUSION: 1. Atypical signal changes of the L3/L4 disc and with associated abnormal signal in the adjacent vertebral bodies. These findings are nonspecific but discitis and osteomyelitis should be included in the differential. Mild to moderate spinal stenosis at this level. I don't see an epidural abscess. 2. Otherwise typical appearing multilevel degenerative changes as above. There is mild to moderate right and mild left foraminal stenosis at L4/L5. Generally no or minimal degrees of foraminal encroachment elsewhere. Santana Eric MD Brain MRI 05/25/17 0000 Signed Impressions: Service Date/Time: April 19:02 - CONCLUSION: No acute intracranial findings. Santana Arzate MD Liver Ultrasound 05/21/17 0000 Signed Impressions: Service Date/Time: Sunday, May 21, 2017 10:32 - CONCLUSION: 1. Hepatic steatosis. 2. Gallstones 3. Limited evaluation of the right kidney. Santana Lamar MD Head CT [id number]/20/[id number] Signed Impressions: Service Date/Time: Saturday, May 20, 2017 19:55 - CONCLUSION: 1. No acute findings. Retention cyst right maxillary sinus. Jakob Scruggs MD PE: GENERAL: Patient is moaning. Does not look to be in distress. HEENT: EOMI, No icterus. NECK: Supple. fatty neck tissue. LUNGS: Clear breath sounds. CARDIAC: Regular rate and rhythm. No murmurs. ABDOMEN: Markedly distended. decreased BS. EXTREMITIES: No CCE. Mild erythema at the tibias. SKIN: No rash. Remarks Strep Grp B bacteremia sources: skin, GI. Rule out epidural abscess,meningitis. Bilateral R> L LE cellulitis. ? aspiration PNA Back pain. reports chronic pain with increase in intensity and severity. Acute renal failure on admit appears improving today. Hypercapnic resp failure: Sleep apnea based on history HTN DM2 uncontrolled. Obesity BMI 49.7 kg/m2 Recs: Continue Ceftriaxone IV q12 for possible meningitis/epidural abscess. Follow repeat blood cultures. Follow clinically. Mg Caceres MD May 27, 2017 13:19
[2017-05-27 13:35] LABS: BANDS 5 % (0-6); BLASTS 0 % (0-0); METAMYELOCYTES 9 % (0-1); MYELOCYTES 6 % (0-0); NEUTROPHIL # MANUAL DIFF 10.4 TH/MM3 (1.8-7.7); PLATELET ESTIMATE SMEAR NORMAL (NORMAL); POLYS (SEG NEUTROPHILS) 70 % (16-70); TOXIC GRANULATION 1+ (NORMAL); WBC DIFF SAMPLE 100
[2017-05-27 13:36] LABS: PLATELET MORPHOLOGY ENLARGED (NORMAL); SCAN/DIFF FINAL DIFF MANUAL
--- NOTE | 2017-05-27 13:55 | MG ---
cc: ABEL GONGORA M.D. Lab No:[id number] Date: 05/27/2017 Age: 66 Sex: F Race: 1950, 66 years old. REFERRING PHYSICIAN: Josue referring ROOM: 509 With hyperventilation photic omitted, due to uncomfortable, repeat study, awake, drowsy, asleep. Last EEG yesterday showed spike and wave discharges. MRI no acute findings. Currently on Dilantin, morphine, Rocephin and insulin. DESCRIPTION OF RECORD: The patient is moaning, there is a lot of artifact. There may still be some spike and slow waves seen bilaterally but improved overall from yesterday. The Photic stimulation is performed with mild driving response. Still some spike and waves are seen bilaterally. IMPRESSION Abnormal EEG due to paroxysmal spike and slow waves still seen but improved from yesterday's EEG. Clinical correlation. MD SHAYLEE Ruth/stacey /1:04 PM /1:44 PM
[2017-05-27] MEDS ORDERED: MIDAZOLAM HCL 5 MG/ML VIAL (1 ML) ONE (14:06)
[2017-05-27 14:08] LABS: HSV 1,PCR Negative (Negative)
--- NOTE | 2017-05-27 16:16 | HHI.PR ---
Subjective Remarks 66 YOObese WF with Hypercapnoea, Cellulitis, Bactremia had Percocet for pain No Fever has more pain Tr to [facility] had Spinal tap EEG showed sz activity Started on Dilantin Objective Vital Signs Vital Signs Date Time Temp Pulse Resp B/P (MAP) Pulse Ox O2 Delivery O2 Flow Rate FiO2 05/27/17 12:56 16 05/27/17 12:15 92 Nasal Cannula 4.00 05/27/17 12:00 100 05/27/17 10:00 100 05/27/17 08:00 98.8 102 16 128/70 (89) 96 05/27/17 08:00 100 05/27/17 08:00 4.00 05/27/17 06:00 98 05/27/17 04:00 98.5 94 22 174/72 (106) 93 05/27/17 04:00 93 Nasal Cannula 2.00 05/27/17 04:00 94 05/27/17 02:00 97 05/27/17 00:00 96 Nasal Cannula 2.00 05/27/17 00:00 95 05/27/17 00:00 98.6 95 23 153/67 (95) 92 05/26/17 22:00 95 05/26/17 21:00 96 05/26/17 21:00 97 Nasal Cannula 2.00 05/26/17 20:01 98.8 05/26/17 20:00 97 05/26/17 20:00 97 22 163/69 (100) 99 05/26/17 19:45 91 Nasal Cannula 4.00 I/O 05/26/17 05/26/17 05/26/17 05/27/17 05/27/17 05/27/17 07:00 15:00 23:00 07:00 15:00 23:00 Intake Total 200 ml 380 ml 100 ml Output Total 2050 ml 1000 ml 800 ml Balance -1850 ml -620 ml -700 ml IV Total 200 ml 380 ml 100 ml Output Urine Total 2050 ml 1000 ml 800 ml Result Diagram: 05/27/17 1235 05/27/17 1235 Objective Remarks GENERAL: Morbidly obese WF, mild sob SKIN: Warm and dry. HEAD: Normocephalic. EYES: No scleral icterus. No injection or drainage. NECK: Supple, trachea midline. No JVD or lymphadenopathy. CARDIOVASCULAR: Regular rate and rhythm without murmurs, gallops, or rubs. RESPIRATORY: Breath sounds equal bilaterally. No accessory muscle use. GASTROINTESTINAL: Abdomen soft, non-tender, nondistended. MUSCULOSKELETAL: No cyanosis, or edema. has swelling and redness of legs BACK: Nontender without obvious deformity. No CVA tenderness. A/P Assessment and Plan Hypercapnoic Resp Insuff CHE or Obesity Hypoventilation synd Cellulitis legs Bactremia back pain PLAN: Aerosol nebs CPAP prn Wean 02 to keep sat 88-92% Dw pt and her . Abx per ID Started Dima Horne MD May 27, 2017 16:16
[2017-05-28] VITALS (14 sets, daily range): BP systolic 96–138; BP diastolic 53–77; PULSE 92–103; RESP 22–30; TEMP 98.3–100.2; O2SAT 89–94
[2017-05-28] MEDS: INSULIN NovoLIN REGULAR SUPPLEMENTAL SCALE SQ SCH ×6 (03:52→20:00)
[2017-05-28] MEDS: cefTRIAXone INJ 2,000 MG in SODIUM CHLORIDE 0.9% INJ 100 ML IV SCH ×2 (03:53→17:00)
[2017-05-28] MEDS: CHLORHEXIDINE GLUCONATE 2 % 1 PACK (2 CLOTHS) TOP SCH (04:00)
[2017-05-28] MEDS: HYDROmorphone HCL PF 0.5 MG/0.5 ML SYRINGE IV PUSH PRN ×4 (04:48→18:00)
[2017-05-28 05:31] LABS: AUTOMATED NEUTROPHIL # 8.3 TH/MM3 (1.8-7.7); BASOPHIL # 0.1 TH/MM3 (0-0.2); BASOPHIL % 0.6 % (0.0-2.0); EOSINOPHIL # 0.1 TH/MM3 (0-0.4); EOSINOPHIL % 0.8 % (0.0-4.0); LYMPH % 14.9 % (9.0-44.0); LYMPHOCYTE # 1.7 TH/MM3 (1.0-4.8); MEAN CELL VOLUME 91.1 FL (80.0-100.0); MEAN CORPUSCULAR HEMOGLOBIN 29.2 PG (27.0-34.0); NEUT % 74.7 % (16.0-70.0); PLATELET COUNT 158 TH/MM3 (150-450); RED BLOOD COUNT 4.18 MIL/MM3 (4.00-5.30); RED CELL DISTRIBUTION WIDTH 16.2 % (11.6-17.2); WHITE BLOOD COUNT 11.2 TH/MM3 (4.0-11.0)
[2017-05-28 05:39] LABS: HEMO FLAGS AUTO DIFF
[2017-05-28 05:55] LABS: BICARBONATE 34.7 MEQ/L (21.0-32.0); POTASSIUM 4.1 MEQ/L (3.5-5.1)
[2017-05-28] MEDS: PHENYTOIN INJ 100 MG/2 ML VIAL IV SCH ×3 (06:23→22:26)
[2017-05-28] MEDS: FUROSEMIDE 20 MG/2 ML VIAL IV PUSH SCH ×2 (09:00→18:00)
[2017-05-28] MEDS: LISINOPRIL 10 MG TAB PO SCH (09:00)
[2017-05-28] MEDS: INSULIN DETEMIR 100 UNITS/ML VIAL SQ SCH ×2 (09:00→20:18)
[2017-05-28] MEDS: DOCUSATE SODIUM 50 MG/SENNA 8.6 MG TAB PO SCH ×2 (09:00→20:18)
[2017-05-28 09:29] LABS: BANDS 9 % (0-6); CORRECTED NUCLEATED RBC 1 /100 WBC (0-0); METAMYELOCYTES 2 % (0-1); MYELOCYTES 6 % (0-0); NEUTROPHIL # MANUAL DIFF 10.1 TH/MM3 (1.8-7.7); POLYS (SEG NEUTROPHILS) 73 % (16-70); TOXIC GRANULATION 1+ (NORMAL); WBC DIFF SAMPLE 100
[2017-05-28 09:30] LABS: PLATELET ESTIMATE SMEAR NORMAL (NORMAL); PLATELET MORPHOLOGY ENLARGED (NORMAL); SCAN/DIFF FINAL DIFF MANUAL
--- NOTE | 2017-05-28 09:32 | HHI.PR ---
Subjective Remarks Follow up back pain. Patient reporting ongoing pain in the low back, not improving. She had low-grade fever overnight. She is more alert today, but still appears uncomfortable. Did require BiPAP overnight. Objective Vitals Vital Signs Date Time Temp Pulse Resp B/P (MAP) Pulse Ox O2 Delivery O2 Flow Rate FiO2 05/28/17 09:18 91 Nasal Cannula 4.00 05/28/17 06:00 102 05/28/17 04:00 96 Nasal Cannula 5.00 40 Simple Mask 05/28/17 04:00 99.3 100 28 114/53 (73) 91 05/28/17 04:00 100 05/28/17 02:00 100 05/28/17 00:00 99 05/28/17 00:00 96 Nasal Cannula 5.00 40 Simple Mask 05/28/17 00:00 100.2 99 30 138/77 (97) 94 05/27/17 22:00 102 05/27/17 20:00 96 Nasal Cannula 5.00 40 Simple Mask 05/27/17 20:00 101 05/27/17 20:00 100.9 101 16 135/64 (87) 95 05/27/17 18:12 16 05/27/17 18:00 100 05/27/17 16:00 100 05/27/17 16:00 5.00 05/27/17 16:00 98.2 100 23 150/66 (94) 90 05/27/17 14:00 100 05/27/17 12:15 92 Nasal Cannula 4.00 05/27/17 12:00 100 05/27/17 12:00 98.0 100 26 154/67 (96) 90 05/27/17 12:00 5.00 05/27/17 10:00 100 I/O 05/27/17 05/27/17 05/27/17 05/28/17 05/28/17 05/28/17 07:00 15:00 23:00 07:00 15:00 23:00 Intake Total 100 ml 220 ml 200 ml Output Total 800 ml 1100 ml 600 ml Balance -700 ml -880 ml -400 ml Intake Oral 120 ml 200 ml IV Total 100 ml 100 ml Output Urine Total 800 ml 1100 ml 600 ml # Bowel Movements 0 Result Diagram: 05/28/17 0510 10/29/17 0510 Imaging Last Impressions Tumor Localization 05/26/17 Signed Impressions: Service Date/Time: Friday, May 26, 2017 13:36 - CONCLUSION: No abnormal uptake identified to suggest infection. Nikita Damon MD Chest X-Ray 05/26/17 Signed Impressions: Service Date/Time: Friday, May 26, 2017 13:36 - CONCLUSION: Patchy infiltrates in the medial right lower lung. Ang Alonzo MD Lumbar Spine MRI 05/25/17 Signed Impressions: Service Date/Time: April 19:02 - CONCLUSION: 1. Atypical signal changes of the L3/L4 disc and with associated abnormal signal in the adjacent vertebral bodies. These findings are nonspecific but discitis and osteomyelitis should be included in the differential. Mild to moderate spinal stenosis at this level. I don't see an epidural abscess. 2. Otherwise typical appearing multilevel degenerative changes as above. There is mild to moderate right and mild left foraminal stenosis at L4/L5. Generally no or minimal degrees of foraminal encroachment elsewhere. Santana Eric MD Brain MRI 05/25/17 Signed Impressions: Service Date/Time: April 19:02 - CONCLUSION: No acute intracranial findings. Santana Arzate MD Liver Ultrasound 05/21/17 Signed Impressions: Service Date/Time: Sunday, May 21, 2017 10:32 - CONCLUSION: 1. Hepatic steatosis. 2. Gallstones 3. Limited evaluation of the right kidney. Santana Lamar MD Head CT 05/20/171928 Signed Impressions: Service Date/Time: Saturday, May 20, 2017 19:55 - CONCLUSION: 1. No acute findings. Retention cyst right maxillary sinus. Jakob Scruggs MD Objective Remarks General: Obese female in no acute distress. Appears uncomfortable. Heart: Regular rate and rhythm. No murmur. Lungs: Coarse breath sounds bilaterally. Breathing is nonlabored. Abdomen: Soft, nontender, nondistended. Extremities: No lower extremity edema. Psych: Alert, answers questions. Procedures None Urinary Catheter: Yes Assessment to: Continue Reid insert reason: Measure Accurate Output Date of Insertion: May 25, 2017 Vascular Central Line Catheter: No A/P Assessment and Plan 1. Acute hypercapnic respiratory failure: Required BiPAP while in the ICU. Likely secondary to obesity hypoventilation syndrome, obstructive sleep apnea. Appreciate pulmonology recommendations. Titrate oxygen to keep sats 88-92%. Continue bronchodilators. Required BiPAP overnight. 2. Bacteremia, group B strep: Uncertain source. Appreciate infectious disease recommendations. Discussed with Dr. Portillo. Continue antibiotics. Repeat blood cultures are negative. 2-D echocardiogram shows no evidence of vegetations. MRI of the lumbar spine showing possible discitis/osteomyelitis L34. White blood cell scan is negative. CRP 11. Repeat blood cultures today due to fever. 3. Increased lethargy/encephalopathy: Improved somewhat. Possibly due to oversedation from narcotic medication. Dose adjusted. LP completed, follow up on CSF results. MRI of the brain unremarkable. Appreciate Neurology recommendations. 4. Acute kidney injury: Secondary to above. Improved with IV fluids. 5. Diabetes mellitus: Monitor Accu-Cheks and cover with sliding scale insulin. BS in low 200s. Currently on Levemir 10u BID. 6. Hypertension: Likely increased secondary to increased pain. Improved BP today. Continue lisinopril. Clonidine, Vasotec as needed. 7. GI prophylaxis: Pepcid. 8. Deconditioning: PT/OT. 9. DVT prophylaxis: Subcutaneous heparin. Tristin Rivera MD May 28, 2017 09:32
[2017-05-28] MEDS: SODIUM CHLORIDE 0.9% FLUSH 10 ML FLUSH IV FLUSH SCH ×2 (09:41→20:17)
[2017-05-28] MEDS: NS + KCL 20 MEQ INJ 1,000 ML IV SCH (09:41)
[2017-05-28] MEDS: FAMOTIDINE 20 MG/2 ML VIAL IV PUSH SCH ×2 (09:47→20:17)
[2017-05-28] MEDS: POTASSIUM CHLORIDE 10 MEQ CONTROLLED RELEASE TAB PO SCH ×2 (09:48→20:17)
[2017-05-28] MEDS ORDERED: PHENYTOIN INJ 250 MG/5 ML VIAL IV ONE (12:00)
--- NOTE | 2017-05-28 15:15 | HHI.PR ---
Subjective Remarks 66 YOObese WF with Hypercapnoea, Cellulitis, Bactremia had Percocet for pain No Fever required VM last night, now on NC Tolerates Dilauded better Objective Vital Signs Vital Signs Date Time Temp Pulse Resp B/P (MAP) Pulse Ox O2 Delivery O2 Flow Rate FiO2 05/28/17 14:00 97 05/28/17 12:00 Nasal Cannula 5.00 05/28/17 12:00 99.0 103 22 107/60 (76) 92 05/28/17 12:00 97 05/28/17 10:11 16 05/28/17 10:00 97 05/28/17 09:18 91 Nasal Cannula 4.00 05/28/17 08:00 97 05/28/17 08:00 Nasal Cannula 5.00 05/28/17 08:00 98.3 102 27 103/61 (75) 89 05/28/17 06:00 102 05/28/17 04:00 96 Nasal Cannula 5.00 40 Simple Mask 05/28/17 04:00 99.3 100 28 114/53 (73) 91 05/28/17 04:00 100 05/28/17 02:00 100 05/28/17 00:00 99 05/28/17 00:00 96 Nasal Cannula 5.00 40 Simple Mask 05/28/17 00:00 100.2 99 30 138/77 (97) 94 05/27/17 22:00 102 05/27/17 20:00 96 Nasal Cannula 5.00 40 Simple Mask 05/27/17 20:00 101 05/27/17 20:00 100.9 101 16 135/64 (87) 95 05/27/17 18:00 100 05/27/17 16:00 100 05/27/17 16:00 5.00 05/27/17 16:00 98.2 100 23 150/66 (94) 90 I/O 05/27/17 05/27/17 05/27/17 05/28/17 05/28/17 05/28/17 07:00 15:00 23:00 07:00 15:00 23:00 Intake Total 100 ml 220 ml 200 ml Output Total 800 ml 1100 ml 600 ml Balance -700 ml -880 ml -400 ml Intake Oral 120 ml 200 ml IV Total 100 ml 100 ml Output Urine Total 800 ml 1100 ml 600 ml # Bowel Movements 0 Result Diagram: 05/28/1710 05/28/17509 Objective Remarks GENERAL: Morbidly obese WF, mild sob SKIN: Warm and dry. HEAD: Normocephalic. EYES: No scleral icterus. No injection or drainage. NECK: Supple, trachea midline. No JVD or lymphadenopathy. CARDIOVASCULAR: Regular rate and rhythm without murmurs, gallops, or rubs. RESPIRATORY: Breath sounds equal bilaterally. No accessory muscle use. GASTROINTESTINAL: Abdomen soft, non-tender, nondistended. MUSCULOSKELETAL: No cyanosis, or edema. has swelling and redness of legs BACK: Nontender without obvious deformity. No CVA tenderness. A/P Assessment and Plan Hypercapnoic Resp Insuff CHE or Obesity Hypoventilation synd Cellulitis legs Bactremia back pain PLAN: Aerosol nebs CPAP prn Wean 02 to keep sat 88-92% Abx per ID Cont Dilantin Encourage PO Dima Bang MD May 28, 2017 15:15
[2017-05-28] MEDS ORDERED: PHENYTOIN INJ 1,000 MG in SODIUM CHLORIDE 0.9% INJ 100 ML IV ONE (17:30)
--- NOTE | 2017-05-28 19:57 | MG ---
cc: ABEL GONGORA M.D. Lab No: [id number] Date: Age: 66 Sex: F Race: ROOM: 509. This is a follow up study. Awake, drowsy, asleep. The last EEG still showed some spikes. This is a follow up study. MRI is unremarkable. Admitted with confusion. MEDICATIONS: Dilaudid. Dilantin. Ceftriaxone and other medications. DESCRIPTION OF RECORD: Some muscle artifact. The patient still has what looks like . bilaterally. muscle artifact. There is overall background slowing in the theta frequency. She is moaning during the study. Photic stimulation does elicit a driving response. IMPRESSION: Abnormal EEG due to slowing with still some high amplitude slow waves concerning for possible epileptic activity versus what appears to be some encephalopathic findings. Clinical correlation. MD SHAYLEE Ruth/SARAH /7:37 PM /7:51 PM
[2017-05-28 20:01] LABS: CSF CRYPTOCOCCUS AG CONF ND (NOT DETECTD)
[2017-05-29] VITALS (13 sets, daily range): BP systolic 89–134; BP diastolic 51–59; PULSE 96–108; RESP 19–39; TEMP 98.1–100.9; O2SAT 89–94
[2017-05-29] MEDS: CHLORHEXIDINE GLUCONATE 2 % 1 PACK (2 CLOTHS) TOP SCH ×2 (04:00→20:59)
[2017-05-29] MEDS: INSULIN NovoLIN REGULAR SUPPLEMENTAL SCALE SQ SCH ×6 (04:00→20:00)
[2017-05-29] MEDS: cefTRIAXone INJ 2,000 MG in SODIUM CHLORIDE 0.9% INJ 100 ML IV SCH ×2 (05:04→17:00)
[2017-05-29 05:51] LABS: AUTOMATED NEUTROPHIL # 8.1 TH/MM3 (1.8-7.7); BASOPHIL # 0.1 TH/MM3 (0-0.2); BASOPHIL % 0.8 % (0.0-2.0); EOSINOPHIL # 0.1 TH/MM3 (0-0.4); HEMATOCRIT 36.4 % (35.0-46.0); LYMPH % 15.3 % (9.0-44.0); LYMPHOCYTE # 1.8 TH/MM3 (1.0-4.8); MEAN CELL VOLUME 92.5 FL (80.0-100.0); MEAN CORPUSCULAR HEMOGLOBIN 29.2 PG (27.0-34.0); MEAN CORPUSCULAR HGB CONC 31.6 % (32.0-36.0); MONO % 13.8 % (0.0-8.0); NEUT % 69.1 % (16.0-70.0); PLATELET COUNT 159 TH/MM3 (150-450); RED BLOOD COUNT 3.94 MIL/MM3 (4.00-5.30); RED CELL DISTRIBUTION WIDTH 15.8 % (11.6-17.2); WHITE BLOOD COUNT 11.7 TH/MM3 (4.0-11.0)
[2017-05-29 05:53] LABS: HEMO FLAGS AUTO DIFF
[2017-05-29 06:18] LABS: BICARBONATE 31.5 MEQ/L (21.0-32.0); POTASSIUM 4.4 MEQ/L (3.5-5.1)
[2017-05-29] MEDS: PHENYTOIN INJ 100 MG/2 ML VIAL IV SCH ×3 (06:32→20:58)
--- NOTE | 2017-05-29 07:06 | RADRPT ---
EXAM DATE/TIME: 05/29/2017 05:44 [facility] COMPARISON: CHEST SINGLE AP, May 26, 2017, 13:36. INDICATIONS : Evaluate for pnuemonia MEDICAL HISTORY : Diabetes mellitus type II. Hypertension SURGICAL HISTORY : None. ENCOUNTER: Subsequent ACUITY: 4 - 6 days PAIN SCORE: 7/10 LOCATION: Bilateral chest FINDINGS: Right infrahilar airspace disease is less conspicuous. The chest is otherwise stable in appearance. T he heart remains moderately enlarged. There is upper lobe vascular engorgement. CONCLUSION: Decreasing conspicuity of right infrahilar airspace disease. Otherwise stable chest Wilian Richey MD on May 29, 2017 at 7:02 Board Certified Radiologist. This report was verified electronically.
--- NOTE | 2017-05-29 08:34 | HHI.PR ---
Subjective Remarks Follow up back pain, seizures. Patient had low-grade fever overnight again. States that her back pain is slightly better today. No further seizure activity reported by nursing. Objective Vitals Vital Signs Date Time Temp Pulse Resp B/P (MAP) Pulse Ox O2 Delivery O2 Flow Rate FiO2 05/29/17 04:00 99.2 99 28 105/52 (69) 91 05/29/17 04:00 99 05/29/17 04:00 Nasal Cannula 5.00 40 05/29/17 02:00 97 05/29/17 00:00 99.4 96 27 130/58 (82) 94 05/29/17 00:00 96 05/29/17 00:00 Nasal Cannula 5.00 40 05/28/17 22:00 92 05/28/17 21:01 92 Nasal Cannula 5.00 05/28/17 20:00 100.2 94 26 96/54 (68) 91 05/28/17 20:00 94 05/28/17 20:00 Nasal Cannula 5.00 40 05/28/17 18:30 16 05/28/17 18:00 97 05/28/17 16:00 Nasal Cannula 5.00 05/28/17 16:00 99.0 99 29 119/55 (76) 92 05/28/17 16:00 97 05/28/17 14:00 97 05/28/17 12:00 Nasal Cannula 5.00 05/28/17 12:00 99.0 103 22 107/60 (76) 92 05/28/17 12:00 97 05/28/17 10:00 97 05/28/17 09:18 91 Nasal Cannula 4.00 I/O 05/28/17 05/28/17 05/28/17 05/29/17 05/29/17 05/29/17 07:00 15:00 23:00 07:00 15:00 23:00 Intake Total 200 ml 1780 ml Output Total 600 ml 800 ml Balance -400 ml 980 ml Intake Oral 200 ml 480 ml IV Total 1300 ml Output Urine Total 600 ml 800 ml # Bowel Movements 0 Result Diagram: 05/29/175 05/29/17404 Imaging Last Impressions Chest X-Ray 05/29/17 0000 Signed Impressions: Service Date/Time: Monday, May 29, 2017 05:44 - CONCLUSION: Decreasing conspicuity of right infrahilar airspace disease. Otherwise stable chest Wilian Richey MD Tumor Localization 05/26/17 Signed Impressions: Service Date/Time: Friday, May 26, 2017 13:36 - CONCLUSION: No abnormal uptake identified to suggest infection. Nikita Damon MD Lumbar Spine MRI 05/25/17 Signed Impressions: Service Date/Time: April 19:02 - CONCLUSION: 1. Atypical signal changes of the L3/L4 disc and with associated abnormal signal in the adjacent vertebral bodies. These findings are nonspecific but discitis and osteomyelitis should be included in the differential. Mild to moderate spinal stenosis at this level. I don't see an epidural abscess. 2. Otherwise typical appearing multilevel degenerative changes as above. There is mild to moderate right and mild left foraminal stenosis at L4/L5. Generally no or minimal degrees of foraminal encroachment elsewhere. Santana Eric MD Brain MRI 05/25/17 Signed Impressions: Service Date/Time: April 19:02 - CONCLUSION: No acute intracranial findings. Santana Arzate MD Liver Ultrasound 05/21/17 Signed Impressions: Service Date/Time: Sunday, May 21, 2017 10:32 - CONCLUSION: 1. Hepatic steatosis. 2. Gallstones 3. Limited evaluation of the right kidney. Santana Lamar MD Head CT 05/20/171928 Signed Impressions: Service Date/Time: Saturday, May 20, 2017 19:55 - CONCLUSION: 1. No acute findings. Retention cyst right maxillary sinus. Jakob Scruggs MD Objective Remarks General: Obese female in no acute distress. Heart: Regular rate and rhythm. No murmur. Lungs: Coarse breath sounds bilaterally. Breathing is nonlabored. Abdomen: Soft, nontender, nondistended. Extremities: No lower extremity edema. Psych: Alert, answers questions. Procedures None Urinary Catheter: Yes Assessment to: Continue Reid insert reason: Measure Accurate Output Date of Insertion: May 25, 2017 Vascular Central Line Catheter: No A/P Assessment and Plan 1. Acute hypercapnic respiratory failure: Required BiPAP while in the ICU. Likely secondary to obesity hypoventilation syndrome, obstructive sleep apnea. Appreciate pulmonology recommendations. Titrate oxygen to keep sats 88-92%. Continue bronchodilators. 2. Bacteremia, group B strep: Uncertain source. Appreciate infectious disease recommendations. Continue antibiotics. Repeat blood cultures are negative. 2-D echocardiogram shows no evidence of vegetations. MRI of the lumbar spine showing possible discitis/osteomyelitis L34. White blood cell scan is negative. CRP 11. Repeat blood cultures pending. 3. Increased lethargy/encephalopathy: Improved somewhat. Possibly due to oversedation from narcotic medication. Dose adjusted. S/P lumbar puncture. MRI of the brain unremarkable. Appreciate Neurology recommendations. 4. Acute kidney injury: Improved with IV fluids. 5. Diabetes mellitus: Monitor Accu-Cheks and cover with sliding scale insulin. Currently on Levemir 10u BID. 6. Hypertension: Continue lisinopril. Clonidine, Vasotec as needed. 7. GI prophylaxis: Pepcid. 8. Deconditioning: PT/OT. 9. Seizures: Appreciate neurology recommendations. Continue Dilantin, level now therapeutic. No further episodes overnight. EEG abnormal. 10. DVT prophylaxis: Subcutaneous heparin. Tristin Rivera MD May 29, 2017 08:34
[2017-05-29 09:04] LABS: BANDS 8 % (0-6); BASOPHILS 1 % (0-2); MYELOCYTES 3 % (0-0); NEUTROPHIL # MANUAL DIFF 9.8 TH/MM3 (1.8-7.7); POLYS (SEG NEUTROPHILS) 73 % (16-70); WBC DIFF SAMPLE 100
[2017-05-29 09:06] LABS: PLATELET ESTIMATE SMEAR NORMAL (NORMAL); PLATELET MORPHOLOGY NORMAL (NORMAL)
[2017-05-29 09:07] LABS: SCAN/DIFF FINAL DIFF MANUAL
[2017-05-29] MEDS: DOCUSATE SODIUM 50 MG/SENNA 8.6 MG TAB PO SCH ×2 (09:21→20:58)
[2017-05-29] MEDS: FAMOTIDINE 20 MG/2 ML VIAL IV PUSH SCH ×2 (09:21→20:58)
[2017-05-29] MEDS: POTASSIUM CHLORIDE 10 MEQ CONTROLLED RELEASE TAB PO SCH ×2 (09:21→20:58)
[2017-05-29] MEDS: FUROSEMIDE 20 MG/2 ML VIAL IV PUSH SCH ×2 (09:21→17:35)
[2017-05-29] MEDS: INSULIN DETEMIR 100 UNITS/ML VIAL SQ SCH ×2 (09:22→20:59)
[2017-05-29] MEDS: LISINOPRIL 10 MG TAB PO SCH (09:22)
[2017-05-29] MEDS: SODIUM CHLORIDE 0.9% FLUSH 10 ML FLUSH IV FLUSH SCH ×2 (09:22→20:58)
[2017-05-29] MEDS: HYDROmorphone HCL PF 0.5 MG/0.5 ML SYRINGE IV PUSH PRN (10:15)
--- NOTE | 2017-05-29 11:16 | HHI.IDPN ---
Subjective Subjective Remarks Delayed entry patient seen at ~ 1 pm. is a 66-year-old female presents confused and lethargic. Patient reportedly was recently seen today at an urgent care and received an injection for low back pain. Patient here denies headaches, chest pain or shortness of breath, abdominal pain or extremity pain. Patient does complain of low back pain. at bedside states that they're visiting from out of state for the past 3 months and will be returning back to their home state in a week. reports patient has chronic low back pain but this exacerbated over the last 24 hours starting yesterday morning. Patient was seen earlier today by her chiropractor for an adjustment and then was referred to an urgent care. Patient reportedly had a fever at the chiropractor's office and felt cold and clammy. At the urgent care patient was evaluated and reportedly had an injection of a nonsteroidal medication as she is diabetic and he did not want to give her a steroid injection. Patient went home about 1:00 PM she was drowsy so sat down in a chair and fell asleep according to the . He tried to awaken her at 4:30 and noticed that she was confusional and lethargic. He attempted to continue to awaken her over the next 2-3 hours and because she was not improving decided finally to call EMS to transport her to the emergency room. Patient and spouse denied any recent injury or fall. Patient was ambulatory this morning but this evening has difficulty elevating her lower extremities as well as she was generally extremely weak. Transferred to ICU for low O2 sats and lethargy/AMS. CXR with CHF, on lasix. Back pain worsening in intensity. No B/B incontinence. No LE weakness or paresthesia. No fevers No rash No diarrhea Antibiotics I attest I reviewed, obtained or updated pts home meds and current meds for name , dose, duration and frequency of medications. Reported Meds & Active Scripts Active Walker with Front Wheels (Device) 1 Mis Mis Ea .ROUTE DIRECTED Reported Novolog Mix 70-30 Inj (Insulin Aspart Prota 70%/Aspart 30%) 1,000 Unit/10 Ml Vial Unknown Dose SQ BIDAC Glimepiride 1 Mg Tab Unknown Dose PO DAILY Take with breakfast or first main meal Lisinopril-Hctz 10-12.5 Mg Tab Unknown Dose PO DAILY Metformin (Metformin HCl) 1,000 Mg Tab Unknown Dose PO BIDPC Current Medications Medications (Trade) Dose Ordered Sig/Erasmo Route Start Time Stop Time Status Last Admin (Pepcid Inj) 10 mg Q12HR IV PUSH 05/21/17 09:00 05/24/17 09:38 (Heparin Inj) 5,000 units Q8H SQ 05/20/17 22:00 05/24/17 12:28 Miscellaneous Information 1 Q361D XX 05/20/17 22:30 (Chlorhexidine 2% Cloth) 3 pack Taper DAILY@04 TOP 05/21/17 04:00 05/17/18 03:59 05/23/17 04:00 (Chlorhexidine 2% Cloth) 3 pack UNSCH PRN TOP 05/20/17 22:30 (Tylenol) 650 mg Q6H PRN PO 05/21/17 01:30 (Duoneb Neb) 1 ampule Q2HR NEB PRN NEB 05/21/17 05:45 05/24/17 16:41 (Levemir Inj) 10 units Q12HR SQ 05/22/17 09:00 05/24/17 09:36 (D50w (Vial) Inj) 50 ml UNSCH PRN IV PUSH 05/22/17 07:30 (Glucagon Inj) 1 mg UNSCH PRN OTHER 05/22/17 07:30 (NovoLIN R SUPPLEMENTAL SCALE) 1 Q4H SQ 05/22/17 08:00 05/24/17 17:28 (Duoneb Neb) 1 ampule BID NEB NEB 05/22/17 20:00 05/24/17 07:52 (Percocet 10-325 Mg) 1 tab Q4HR PRN PO 05/23/17 09:45 05/24/17 17:31 (Morphine Inj) 4 mg Q3H PRN IV PUSH 05/23/17 09:45 (Prinivil) 10 mg DAILY PO 05/23/17 10:00 05/24/17 09:41 (Apresoline Inj) 10 mg Q6H PRN IV PUSH 05/23/17 10:00 Ceftriaxone Sodium 2000 mg/ Sodium Chloride 100 ml @ 200 mls/hr Q24H IV 05/25/17 06:00 (NS Flush) 2 ml UNSCH PRN IV FLUSH 05/24/17 12:15 (NS Flush) 2 ml BID IV FLUSH 05/24/17 21:00 (Narcan Inj) 0.4 mg UNSCH PRN IV PUSH 05/24/17 12:15 (May-Colace) 1 tab BID PO 05/24/17 21:00 (Milk Of Magnesia Liq) 30 ml Q12H PRN PO 05/24/17 12:15 05/24/17 13:45 (Senokot) 17.2 mg Q12H PRN PO 05/24/17 12:15 (Dulcolax Supp) 10 mg DAILY PRN RECTAL 05/24/17 12:15 (Lactulose Liq) 30 ml DAILY PRN PO 05/24/17 12:15 (Catapres) 0.1 mg Q4H PRN PO 05/24/17 12:30 05/24/17 13:43 (Lasix Inj) 40 mg NOW ONCE IV PUSH 05/24/17 18:45 05/24/17 18:46 Lines Line sites with no e.o infection Past Medical History Diabetes Dyslipidemia Hypertension Chronic back pain sees a chiropracter. Chronic lower extremity swelling. Never had an ECHO before per pt and spouse. ? Sleep apnea. Allergies: Coded Allergies: No Known Allergies (Unverified , 05/20/17) Objective . Vital Signs Date Time Temp Pulse Resp B/P (MAP) Pulse Ox O2 Delivery O2 Flow Rate FiO2 05/29/17 10:59 18 05/29/17 06:00 99 05/29/17 04:00 99.2 99 28 105/52 (69) 91 05/29/17 04:00 99 05/29/17 04:00 Nasal Cannula 5.00 40 05/29/17 02:00 97 05/29/17 00:00 99.4 96 27 130/58 (82) 94 05/29/17 00:00 96 05/29/17 00:00 Nasal Cannula 5.00 40 05/28/17 22:00 92 05/28/17 21:01 92 Nasal Cannula 5.00 05/28/17 20:00 100.2 94 26 96/54 (68) 91 05/28/17 20:00 94 05/28/17 20:00 Nasal Cannula 5.00 40 05/28/17 18:00 97 05/28/17 16:00 Nasal Cannula 5.00 05/28/17 16:00 99.0 99 29 119/55 (76) 92 05/28/17 16:00 97 05/28/17 14:00 97 05/28/17 12:00 Nasal Cannula 5.00 05/28/17 12:00 99.0 103 22 107/60 (76) 92 05/28/17 12:00 97 . Laboratory Tests Test 05/27/17 12:35 05/28/17 05:10 05/29/17 04:05 White Blood Count 11.5 TH/MM3 11.2 TH/MM3 11.7 TH/MM3 Red Blood Count 4.17 MIL/MM3 4.18 MIL/MM3 3.94 MIL/MM3 Hemoglobin 12.0 GM/DL 12.2 GM/DL 11.5 GM/DL Hematocrit 37.9 % 38.0 % 36.4 % Mean Corpuscular Volume 90.8 FL 91.1 FL 92.5 FL Mean Corpuscular Hemoglobin 28.9 PG 29.2 PG 29.2 PG Mean Corpuscular Hemoglobin Concent 31.8 % 32.0 % 31.6 % Red Cell Distribution Width 16.5 % 16.2 % 15.8 % Platelet Count 166 TH/MM3 158 TH/MM3 159 TH/MM3 Mean Platelet Volume 10.0 FL 10.4 FL 11.1 FL Neutrophils (%) (Auto) 75.0 % 74.7 % 69.1 % Lymphocytes (%) (Auto) 14.5 % 14.9 % 15.3 % Monocytes (%) (Auto) 9.1 % 9.0 % 13.8 % Eosinophils (%) (Auto) 0.7 % 0.8 % 1.0 % Basophils (%) (Auto) 0.7 % 0.6 % 0.8 % Neutrophils # (Auto) 8.6 TH/MM3 8.3 TH/MM3 8.1 TH/MM3 Lymphocytes # (Auto) 1.7 TH/MM3 1.7 TH/MM3 1.8 TH/MM3 Monocytes # (Auto) 1.0 TH/MM3 1.0 TH/MM3 1.6 TH/MM3 Eosinophils # (Auto) 0.1 TH/MM3 0.1 TH/MM3 0.1 TH/MM3 Basophils # (Auto) 0.1 TH/MM3 0.1 TH/MM3 0.1 TH/MM3 CBC Comment AUTO DIFF AUTO DIFF AUTO DIFF Differential Total Cells Counted 100 100 100 Neutrophils % (Manual) 70 % 73 % 73 % Band Neutrophils % 5 % 9 % 8 % Lymphocytes % 9 % 4 % 6 % Monocytes % 1 % 6 % 9 % Neutrophils # (Manual) 10.4 TH/MM3 10.1 TH/MM3 9.8 TH/MM3 Metamyelocytes 9 % 2 % Myelocytes 6 % 6 % 3 % Differential Comment FINAL DIFF MANUAL FINAL DIFF MANUAL FINAL DIFF MANUAL Blastocytes 0 % Toxic Granulation 1+ 1+ Platelet Estimate NORMAL NORMAL NORMAL Platelet Morphology Comment ENLARGED ENLARGED NORMAL Nucleated Red Blood Cells 1 /100 WBC Basophils % 1 % Laboratory Tests Test 05/27/17 12:35 05/28/17 05:10 05/29/17 04:05 Blood Urea Nitrogen 18 MG/DL 19 MG/DL 17 MG/DL Creatinine 0.75 MG/DL 0.88 MG/DL 0.90 MG/DL Random Glucose 261 MG/DL 229 MG/DL 249 MG/DL Calcium Level 9.4 MG/DL 9.1 MG/DL 9.1 MG/DL Sodium Level 141 MEQ/L 143 MEQ/L 141 MEQ/L Potassium Level 3.9 MEQ/L 4.1 MEQ/L 4.4 MEQ/L Chloride Level 98 MEQ/L 100 MEQ/L 99 MEQ/L Carbon Dioxide Level 34.0 MEQ/L 34.7 MEQ/L 31.5 MEQ/L Anion Gap 9 MEQ/L 8 MEQ/L 11 MEQ/L Estimat Glomerular Filtration Rate 78 ML/MIN 64 ML/MIN 63 ML/MIN Microbiology Date/Time Source Procedure Growth Status 05/28/17 16:41 Blood Peripheral Aerobic Blood Culture - Preliminary NO GROWTH IN 1 DAY Resulted 05/28/17 16:41 Blood Peripheral Anaerobic Blood Culture - Preliminary NO GROWTH IN 1 DAY Resulted 05/28/17 16:38 Blood Peripheral Aerobic Blood Culture - Preliminary NO GROWTH IN 1 DAY Resulted 05/28/17 16:38 Blood Peripheral Anaerobic Blood Culture - Preliminary NO GROWTH IN 1 DAY Resulted Imaging Last Impressions Liver Ultrasound 05/21/17 0000 Signed Impressions: Service Date/Time: Sunday, May 21, 2017 10:32 - CONCLUSION: 1. Hepatic steatosis. 2. Gallstones 3. Limited evaluation of the right kidney. Santana Lamar MD Chest X-Ray 05/21/17 0000 Signed Impressions: Service Date/Time: Sunday, May 21, 2017 06:17 - CONCLUSION: 1. Limited suboptimal study with motion artifact. 2. No definite acute cardiac pulmonary disease. Austin Orellana MD Head CT 05/20/171928 Signed Impressions: Service Date/Time: Saturday, May 20, 2017 19:55 - CONCLUSION: 1. No acute findings. Retention cyst right maxillary sinus. Jakob Scruggs MD Physical Exam GENERAL: Obese patient. SKIN: No rashes. Ecchymosis noted. HEAD: Atraumatic. Normocephalic. No temporal or scalp tenderness. EYES: Pupils equal round and reactive. Extraocular motions intact. No scleral icterus. No injection or drainage. ENT: Nose without bleeding, purulent drainage or septal hematoma. Throat without erythema, tonsillar hypertrophy or exudate. Uvula midline. Airway patent. NECK: Large neck. CARDIOVASCULAR: Regular rate and rhythm without murmurs, gallops, or rubs. RESPIRATORY: Breath sounds equal bilaterally. Occ Wheezing noted. Basilar crackles. GASTROINTESTINAL: Abdomen soft, non-tender, nondistended. Obese. MUSCULOSKELETAL: Extremities without clubbing, cyanosis. Significant swelling bilateral LE upto knees pitting edema. Some erythema noted, minimal warmth. Some skin breaks noted R> L LE. NEUROLOGICAL: Confused, moans and groans, moves extremities spontaneously. Did not follow commands for me. Psych cooperative IV line sites with no e/o infection. Assessment & Plan Remarks Strep Grp B bacteremia sources: skin, GI. Rule out epidural abscess,meningitis. Bilateral R> L LE cellulitis. ? aspiration PNA Back pain. reports chronic pain with increase in intensity and severity. Acute renal failure on admit appears improving today. Hypercapnic resp failure: Sleep apnea based on history HTN DM2 uncontrolled. Obesity BMI 49.7 kg/m2 Recs: Continue Ceftriaxone IV q12 for possible meningitis/epidural abscess. Follow repeat blood cultures. 2D ECHO reviewed no vegetations. MRI L spine reviewed concerning for possible discitis given clinical picture. MRI Brain normal. WBC scan process started today. Transferred to ICU imagining part will be attempted in am if condition permits. Repeat CXR today. D.w pts spouse in room change in condition and above new plan for the day. Follow clinically. Follow culture susceptibility. Nan Portillo MD May 29, 2017 11:16
[2017-05-29] MEDS: HEPARIN SODIUM - SQ 10,000 UNITS/ML VIAL SQ SCH ×2 (13:24→20:57)
--- NOTE | 2017-05-29 14:08 | RADRPT ---
EXAM DATE/TIME: 05/29/2017 13:10 [facility] COMPARISON: No previous studies available for comparison. INDICATIONS : Bilateral leg swelling and redness. MEDICAL HISTORY : Hypertension. Diabetes. Dyspnea. SURGICAL HISTORY : section. ENCOUNTER: Initial ACUITY: 1 day PAIN SCORE: Non-responsive LOCATION: Bilateral legs. TECHNIQUE: Venous ultrasound of the left and right leg was performed from the inguinal ligament to the proximal calf. Real-time, color Doppler and spectral tracing, compression and augmentation techniques were us ed. FINDINGS: RIGHT LEG: There is normal compressibility of the deep venous system from the inguinal region to the proximal ca lf. No echogenic clot is seen in the lumen of the common femoral, femoral, popliteal, and posterior tibial veins. There is a normal response of the venous system to proximal and distal augmentation an d respiration. LEFT LEG: There is normal compressibility of the deep venous system from the inguinal region to the proximal ca lf. No echogenic clot is seen in the lumen of the common femoral, femoral, popliteal, and posterior tibial veins. There is a normal response of the venous system to proximal and distal augmentation an d respiration. CONCLUSION: 1. No evidence of deep venous thrombosis. Monty Gross MD on May 29, 2017 at 14:06 Board Certified Radiologist. This report was verified electronically.
[2017-05-29] MEDS: NS + KCL 20 MEQ INJ 1,000 ML IV SCH (14:17)
--- NOTE | 2017-05-29 21:10 | HHI.PR ---
Subjective Remarks 66 YOObese WF with Hypercapnoea, Cellulitis, Bactremia had Percocet for pain No Fever Back pain better On VM Objective Vital Signs Vital Signs Date Time Temp Pulse Resp B/P (MAP) Pulse Ox O2 Delivery O2 Flow Rate FiO2 05/29/17 20:00 105 05/29/17 18:00 102 05/29/17 16:00 99.7 108 24 130/58 (82) 93 05/29/17 16:00 108 05/29/17 16:00 Nasal Cannula 5.00 40 05/29/17 14:00 101 05/29/17 12:00 100.0 107 19 89/51 (64) 89 05/29/17 12:00 Nasal Cannula 5.00 40 05/29/17 12:00 107 05/29/17 10:59 18 05/29/17 10:00 103 05/29/17 08:00 Nasal Cannula 5.00 40 05/29/17 08:00 98.1 99 22 103/54 (70) 90 05/29/17 06:00 99 05/29/17 04:00 99.2 99 28 105/52 (69) 91 05/29/17 04:00 99 05/29/17 04:00 Nasal Cannula 5.00 40 05/29/17 02:00 97 05/29/17 00:00 99.4 96 27 130/58 (82) 94 05/29/17 00:00 96 05/29/17 00:00 Nasal Cannula 5.00 40 05/28/17 22:00 92 I/O 05/28/17 05/28/17 05/28/17 05/29/17 05/29/17 05/29/17 07:00 15:00 23:00 07:00 15:00 23:00 Intake Total 200 ml 1780 ml 60 ml 1920 ml Output Total 600 ml 800 ml 1000 ml Balance -400 ml 980 ml -940 ml 1920 ml Intake Oral 200 ml 480 ml 60 ml 90 ml IV Total 1300 ml 1830 ml Output Urine Total 600 ml 800 ml 1000 ml Stool Total 0 ml # Bowel Movements 0 Result Diagram: 05/29/1740405/29/17404 Objective Remarks GENERAL: Morbidly obese WF, mild sob SKIN: Warm and dry. HEAD: Normocephalic. EYES: No scleral icterus. No injection or drainage. NECK: Supple, trachea midline. No JVD or lymphadenopathy. CARDIOVASCULAR: Regular rate and rhythm without murmurs, gallops, or rubs. RESPIRATORY: Breath sounds equal bilaterally. No accessory muscle use. GASTROINTESTINAL: Abdomen soft, non-tender, nondistended. MUSCULOSKELETAL: No cyanosis, or edema. has swelling and redness of legs BACK: Nontender without obvious deformity. No CVA tenderness. A/P Assessment and Plan Hypercapnoic Resp Insuff CHE or Obesity Hypoventilation synd Cellulitis legs Bactremia back pain PLAN: Aerosol nebs Wean 02 to keep sat 88-92% Abx per ID Cont Dilantin Encourage PO Dima Bang MD May 29, 2017 21:10
[2017-05-30] VITALS (19 sets, daily range): BP systolic 104–165; BP diastolic 49–66; PULSE 101–109; RESP 0–38; TEMP 99.1–102.2; O2SAT 90–98
[2017-05-30] MEDS: INSULIN NovoLIN REGULAR SUPPLEMENTAL SCALE SQ SCH ×6 (04:00→20:00)
[2017-05-30] MEDS: cefTRIAXone INJ 2,000 MG in SODIUM CHLORIDE 0.9% INJ 100 ML IV SCH ×2 (04:01→16:58)
[2017-05-30] MEDS: PHENYTOIN INJ 100 MG/2 ML VIAL IV SCH ×3 (05:31→21:04)
[2017-05-30] MEDS: HEPARIN SODIUM - SQ 10,000 UNITS/ML VIAL SQ SCH ×3 (05:32→21:02)
[2017-05-30 07:01] LABS: AUTOMATED NEUTROPHIL # 7.1 TH/MM3 (1.8-7.7); BASOPHIL # 0.1 TH/MM3 (0-0.2); BASOPHIL % 0.6 % (0.0-2.0); EOSINOPHIL # 0.1 TH/MM3 (0-0.4); EOSINOPHIL % 0.9 % (0.0-4.0); HEMATOCRIT 37.9 % (35.0-46.0); LYMPH % 17.6 % (9.0-44.0); LYMPHOCYTE # 1.8 TH/MM3 (1.0-4.8); MEAN CELL VOLUME 92.2 FL (80.0-100.0); MEAN CORPUSCULAR HEMOGLOBIN 29.2 PG (27.0-34.0); MEAN CORPUSCULAR HGB CONC 31.7 % (32.0-36.0); MONO % 12.2 % (0.0-8.0); NEUT % 68.7 % (16.0-70.0); PLATELET COUNT 178 TH/MM3 (150-450); RED BLOOD COUNT 4.11 MIL/MM3 (4.00-5.30); RED CELL DISTRIBUTION WIDTH 16.2 % (11.6-17.2); WHITE BLOOD COUNT 10.3 TH/MM3 (4.0-11.0)
[2017-05-30 07:09] LABS: MAGNESIUM 1.3 MG/DL (1.5-2.5); POTASSIUM 4.1 MEQ/L (3.5-5.1)
[2017-05-30 07:10] LABS: HEMO FLAGS AUTO DIFF
[2017-05-30] MEDS: FAMOTIDINE 20 MG/2 ML VIAL IV PUSH SCH ×2 (08:34→21:02)
[2017-05-30] MEDS: MAGNESIUM SULFATE 1 GM PREMIX 100 ML IV SCH ×2 (08:34→08:50)
[2017-05-30] MEDS: POTASSIUM CHLORIDE 10 MEQ CONTROLLED RELEASE TAB PO SCH (08:35)
[2017-05-30] MEDS: DOCUSATE SODIUM 50 MG/SENNA 8.6 MG TAB PO SCH ×2 (08:35→21:00)
[2017-05-30] MEDS: SODIUM CHLORIDE 0.9% FLUSH 10 ML FLUSH IV FLUSH SCH ×2 (08:35→21:02)
[2017-05-30] MEDS: LISINOPRIL 10 MG TAB PO SCH (08:35)
[2017-05-30] MEDS: FUROSEMIDE 20 MG/2 ML VIAL IV PUSH SCH ×2 (08:35→16:58)
[2017-05-30] MEDS: INSULIN DETEMIR 100 UNITS/ML VIAL SQ SCH ×2 (08:35→21:00)
[2017-05-30] MEDS: HYDROmorphone HCL PF 0.5 MG/0.5 ML SYRINGE IV PUSH PRN ×2 (08:36→17:06)
[2017-05-30] MEDS ORDERED: POTASSIUM PHOSPHATE MONOBASIC 500 MG TAB PO/TUBE PRN (08:45)
[2017-05-30] MEDS ORDERED: MAGNESIUM SULFATE INJ 2 GM in SODIUM CHLORIDE 0.9% INJ 96 ML IV PRN (08:45)
[2017-05-30] MEDS ORDERED: POTASSIUM CHLOR 20 MEQ PREMIX 100 ML IV PRN ×2 (08:45)
[2017-05-30] MEDS ORDERED: MAGNESIUM SULFATE INJ 4 GM in SODIUM CHLORIDE 0.9% INJ 92 ML IV PRN (08:45)
[2017-05-30] MEDS ORDERED: MAGNESIUM OXIDE 400 MG TAB PO PRN (08:45)
[2017-05-30] MEDS ORDERED: POTASSIUM CHLORIDE 25 MEQ EFFERVESCENT TAB PO PRN (08:45)
[2017-05-30] MEDS ORDERED: POTASSIUM CHLOR 40 MEQ PREMIX 100 ML IV PRN ×2 (08:45)
[2017-05-30] MEDS ORDERED: SODIUM PHOSPHATE INJ 30 MMOL in SODIUM CHLOR 0.9% 250 ML INJ 240 ML IV PRN (08:45)
[2017-05-30] MEDS ORDERED: POTASSIUM PHOSPHATE MONOBASIC 500 MG TAB PO PRN (08:45)
[2017-05-30] MEDS ORDERED: POTASSIUM PHOSPHATE INJ 30 MMOL in SODIUM CHLOR 0.9% 250 ML INJ 250 ML IV PRN (08:45)
--- NOTE | 2017-05-30 09:30 | HHI.PR ---
Subjective Remarks Follow up back pain, respiratory distress, seizure disorder. Patient states that her pain is feeling better today. She has been short of breath at times. Required oxygen mask overnight. Objective Vitals Vital Signs Date Time Temp Pulse Resp B/P (MAP) Pulse Ox O2 Delivery O2 Flow Rate FiO2 05/30/17 06:00 101 05/30/17 04:39 94 Simple Mask 05/30/17 04:00 91 Simple Mask 8.00 05/30/17 04:00 99.3 102 121/55 (77) 91 05/30/17 04:00 102 05/30/17 02:00 103 05/30/17 00:22 93 Simple Mask 05/30/17 00:00 101 05/30/17 00:00 99.4 101 134/62 (86) 95 05/30/17 00:00 95 Simple Mask 8.00 05/29/17 22:00 104 05/29/17 20:00 100.9 105 39 134/59 (84) 93 05/29/17 20:00 93 Simple Mask 8.00 05/29/17 20:00 105 05/29/17 19:15 94 Simple Mask 8.00 05/29/17 18:00 102 05/29/17 16:00 99.7 108 24 130/58 (82) 93 05/29/17 16:00 108 05/29/17 16:00 Nasal Cannula 5.00 40 05/29/17 14:00 101 05/29/17 12:00 100.0 107 19 89/51 (64) 89 05/29/17 12:00 Nasal Cannula 5.00 40 05/29/17 12:00 107 05/29/17 10:59 18 05/29/17 10:00 103 I/O 05/29/17 05/29/17 05/29/17 05/30/17 05/30/17 05/30/17 07:00 15:00 23:00 07:00 15:00 23:00 Intake Total 60 ml 2112 ml 657 ml Output Total 1000 ml 700 ml Balance -940 ml 2112 ml -43 ml Intake Oral 60 ml 90 ml 100 ml IV Total 2022 ml 557 ml Output Urine Total 1000 ml 700 ml Stool Total 0 ml Result Diagram: 05/30/17 0538 05/30/1738 Imaging Last Impressions Lower Extremity Ultrasound 05/29/17 Signed Impressions: Service Date/Time: Monday, May 29, 2017 13:10 - CONCLUSION: 1. No evidence of deep venous thrombosis. Monty Gross MD Chest X-Ray 05/29/17 Signed Impressions: Service Date/Time: Monday, May 29, 2017 05:44 - CONCLUSION: Decreasing conspicuity of right infrahilar airspace disease. Otherwise stable chest Wilian Richey MD Tumor Localization 05/26/17 Signed Impressions: Service Date/Time: Friday, May 26, 2017 13:36 - CONCLUSION: No abnormal uptake identified to suggest infection. Nikita Damon MD Lumbar Spine MRI 05/25/17 Signed Impressions: Service Date/Time: April 19:02 - CONCLUSION: 1. Atypical signal changes of the L3/L4 disc and with associated abnormal signal in the adjacent vertebral bodies. These findings are nonspecific but discitis and osteomyelitis should be included in the differential. Mild to moderate spinal stenosis at this level. I don't see an epidural abscess. 2. Otherwise typical appearing multilevel degenerative changes as above. There is mild to moderate right and mild left foraminal stenosis at L4/L5. Generally no or minimal degrees of foraminal encroachment elsewhere. Santana Eric MD Brain MRI 05/25/17 Signed Impressions: Service Date/Time: April 19:02 - CONCLUSION: No acute intracranial findings. Santana Arzate MD Liver Ultrasound 05/21/17 Signed Impressions: Service Date/Time: Sunday, May 21, 2017 10:32 - CONCLUSION: 1. Hepatic steatosis. 2. Gallstones 3. Limited evaluation of the right kidney. Santana Lamar MD Head CT 05/20/171928 Signed Impressions: Service Date/Time: Saturday, May 20, 2017 19:55 - CONCLUSION: 1. No acute findings. Retention cyst right maxillary sinus. Jakob Scruggs MD Objective Remarks General: Obese female in no acute distress. On oxygen per mask. Heart: Regular rate and rhythm. No murmur. Lungs: Coarse breath sounds bilaterally. Breathing is nonlabored. Abdomen: Soft, nontender, nondistended. Extremities: No lower extremity edema. Venous stasis changes of lower legs, left >right. Small wound on lateral left lower leg. SCDs. Psych: Alert, answers questions. Procedures None Urinary Catheter: Yes Assessment to: Continue Reid insert reason: Measure Accurate Output Date of Insertion: May 25, 2017 Vascular Central Line Catheter: No A/P Assessment and Plan 1. Acute hypercapnic respiratory failure: Required BiPAP while in the ICU. Likely secondary to obesity hypoventilation syndrome, obstructive sleep apnea. Appreciate pulmonology recommendations. Titrate oxygen to keep sats 88-92%. Continue bronchodilators. 2. Bacteremia, group B strep: Uncertain source. Appreciate infectious disease recommendations. Continue antibiotics. Repeat blood cultures are negative. 2-D echocardiogram shows no evidence of vegetations. MRI of the lumbar spine showing possible discitis/osteomyelitis L34. White blood cell scan is negative. CRP 11. Repeat blood cultures pending. 3. Increased lethargy/encephalopathy: Improved somewhat. Possibly due to oversedation from narcotic medication. Dose adjusted. S/P lumbar puncture. MRI of the brain unremarkable. Appreciate Neurology recommendations. Still with occasional confusion, lethargy. ?secondary to dilantin 4. Acute kidney injury: Improved with IV fluids. 5. Diabetes mellitus: Monitor Accu-Cheks and cover with sliding scale insulin. Currently on Levemir 10u BID. 6. Hypertension: Continue lisinopril. Clonidine, Vasotec as needed. 7. GI prophylaxis: Pepcid. 8. Deconditioning: PT/OT. 9. Seizures: Appreciate neurology recommendations. Continue Dilantin, level now therapeutic. No further episodes overnight. EEG abnormal. 10. DVT prophylaxis: Subcutaneous heparin. Tristin Rivera MD May 30, 2017 09:29
[2017-05-30 10:24] LABS: BANDS 17 % (0-6); MYELOCYTES 3 % (0-0); NEUTROPHIL # MANUAL DIFF 8.3 TH/MM3 (1.8-7.7); POLYS (SEG NEUTROPHILS) 61 % (16-70); WBC DIFF SAMPLE 100
[2017-05-30 10:26] LABS: PLATELET ESTIMATE SMEAR NORMAL (NORMAL); PLATELET MORPHOLOGY NORMAL (NORMAL); SCAN/DIFF FINAL DIFF MANUAL; TOXIC GRANULATION 1+ (NORMAL)
[2017-05-30] MEDS ORDERED: AZITHROMYCIN INJ 500 MG in SODIUM CHLOR 0.9% 250 ML INJ 250 ML IV SCH (11:00)
--- NOTE | 2017-05-30 12:32 | HHI.IDPN ---
Subjective Subjective Remarks Delayed entry patient seen at ~ 10:30 am. is a 66-year-old female presents confused and lethargic. Patient reportedly was recently seen today at an urgent care and received an injection for low back pain. Patient here denies headaches, chest pain or shortness of breath, abdominal pain or extremity pain. Patient does complain of low back pain. at bedside states that they're visiting from out of state for the past 3 months and will be returning back to their home state in a week. reports patient has chronic low back pain but this exacerbated over the last 24 hours starting yesterday morning. Patient was seen earlier today by her chiropractor for an adjustment and then was referred to an urgent care. Patient reportedly had a fever at the chiropractor's office and felt cold and clammy. At the urgent care patient was evaluated and reportedly had an injection of a nonsteroidal medication as she is diabetic and he did not want to give her a steroid injection. Patient went home about 1:00 PM she was drowsy so sat down in a chair and fell asleep according to the . He tried to awaken her at 4:30 and noticed that she was confusional and lethargic. He attempted to continue to awaken her over the next 2-3 hours and because she was not improving decided finally to call EMS to transport her to the emergency room. Patient and spouse denied any recent injury or fall. Patient was ambulatory this morning but this evening has difficulty elevating her lower extremities as well as she was generally extremely weak. Remains in ICU for low O2 sats and lethargy/AMS. Developed seizures overnight. EEG done. Neurology on board and Dilantin started. Opens eyes spontaneously. Answers occ questions. Still complains of back pain. No B/B incontinence. No LE weakness or paresthesia. RN called me at 12:28 pm informing of temp of 102 F. No rash No diarrhea Antibiotics I attest I reviewed, obtained or updated pts home meds and current meds for name , dose, duration and frequency of medications. Reported Meds & Active Scripts Active Walker with Front Wheels (Device) 1 Mis Mis Ea .ROUTE DIRECTED Reported Novolog Mix 70-30 Inj (Insulin Aspart Prota 70%/Aspart 30%) 1,000 Unit/10 Ml Vial Unknown Dose SQ BIDAC Glimepiride 1 Mg Tab Unknown Dose PO DAILY Take with breakfast or first main meal Lisinopril-Hctz 10-12.5 Mg Tab Unknown Dose PO DAILY Metformin (Metformin HCl) 1,000 Mg Tab Unknown Dose PO BIDPC Current Medications Medications (Trade) Dose Ordered Sig/Erasmo Route Start Time Stop Time Status Last Admin (Pepcid Inj) 10 mg Q12HR IV PUSH 05/21/17 09:00 05/24/17 09:38 (Heparin Inj) 5,000 units Q8H SQ 05/20/17 22:00 05/24/17 12:28 Miscellaneous Information 1 Q361D XX 05/20/17 22:30 (Chlorhexidine 2% Cloth) 3 pack Taper DAILY@04 TOP 05/21/17 04:00 05/17/18 03:59 05/23/17 04:00 (Chlorhexidine 2% Cloth) 3 pack UNSCH PRN TOP 05/20/17 22:30 (Tylenol) 650 mg Q6H PRN PO 05/21/17 01:30 (Duoneb Neb) 1 ampule Q2HR NEB PRN NEB 05/21/17 05:45 05/24/17 16:41 (Levemir Inj) 10 units Q12HR SQ 05/22/17 09:00 05/24/17 09:36 (D50w (Vial) Inj) 50 ml UNSCH PRN IV PUSH 05/22/17 07:30 (Glucagon Inj) 1 mg UNSCH PRN OTHER 05/22/17 07:30 (NovoLIN R SUPPLEMENTAL SCALE) 1 Q4H SQ 05/22/17 08:00 05/24/17 17:28 (Duoneb Neb) 1 ampule BID NEB NEB 05/22/17 20:00 05/24/17 07:52 (Percocet 10-325 Mg) 1 tab Q4HR PRN PO 05/23/17 09:45 05/24/17 17:31 (Morphine Inj) 4 mg Q3H PRN IV PUSH 05/23/17 09:45 (Prinivil) 10 mg DAILY PO 05/23/17 10:00 05/24/17 09:41 (Apresoline Inj) 10 mg Q6H PRN IV PUSH 05/23/17 10:00 Ceftriaxone Sodium 2000 mg/ Sodium Chloride 100 ml @ 200 mls/hr Q24H IV 05/25/17 06:00 (NS Flush) 2 ml UNSCH PRN IV FLUSH 05/24/17 12:15 (NS Flush) 2 ml BID IV FLUSH 05/24/17 21:00 (Narcan Inj) 0.4 mg UNSCH PRN IV PUSH 05/24/17 12:15 (May-Colace) 1 tab BID PO 05/24/17 21:00 (Milk Of Magnesia Liq) 30 ml Q12H PRN PO 05/24/17 12:15 05/24/17 13:45 (Senokot) 17.2 mg Q12H PRN PO 05/24/17 12:15 (Dulcolax Supp) 10 mg DAILY PRN RECTAL 05/24/17 12:15 (Lactulose Liq) 30 ml DAILY PRN PO 05/24/17 12:15 (Catapres) 0.1 mg Q4H PRN PO 05/24/17 12:30 05/24/17 13:43 (Lasix Inj) 40 mg NOW ONCE IV PUSH 05/24/17 18:45 05/24/17 18:46 Lines Line sites with no e.o infection Past Medical History Diabetes Dyslipidemia Hypertension Chronic back pain sees a chiropracter. Chronic lower extremity swelling. Never had an ECHO before per pt and spouse. ? Sleep apnea. Allergies: Coded Allergies: No Known Allergies (Unverified , 05/20/17) Objective . Vital Signs Date Time Temp Pulse Resp B/P (MAP) Pulse Ox O2 Delivery O2 Flow Rate FiO2 05/30/17 06:00 101 05/30/17 04:39 94 Simple Mask 05/30/17 04:00 91 Simple Mask 8.00 05/30/17 04:00 99.3 102 121/55 (77) 91 05/30/17 04:00 102 05/30/17 02:00 103 05/30/17 00:22 93 Simple Mask 05/30/17 00:00 101 05/30/17 00:00 99.4 101 134/62 (86) 95 05/30/17 00:00 95 Simple Mask 8.00 05/29/17 22:00 104 05/29/17 20:00 100.9 105 39 134/59 (84) 93 05/29/17 20:00 93 Simple Mask 8.00 05/29/17 20:00 105 05/29/17 19:15 94 Simple Mask 8.00 05/29/17 18:00 102 05/29/17 16:00 99.7 108 24 130/58 (82) 93 05/29/17 16:00 108 05/29/17 16:00 Nasal Cannula 5.00 40 05/29/17 14:00 101 05/30/17 05/30/17 05/31/17 15:00 23:00 07:00 Intake Total 100 ml Balance 100 ml IV Total 100 ml . Laboratory Tests Test 05/29/17 04:05 05/30/17 05:38 White Blood Count 11.7 TH/MM3 10.3 TH/MM3 Red Blood Count 3.94 MIL/MM3 4.11 MIL/MM3 Hemoglobin 11.5 GM/DL 12.0 GM/DL Hematocrit 36.4 % 37.9 % Mean Corpuscular Volume 92.5 FL 92.2 FL Mean Corpuscular Hemoglobin 29.2 PG 29.2 PG Mean Corpuscular Hemoglobin Concent 31.6 % 31.7 % Red Cell Distribution Width 15.8 % 16.2 % Platelet Count 159 TH/MM3 178 TH/MM3 Mean Platelet Volume 11.1 FL 10.8 FL Neutrophils (%) (Auto) 69.1 % 68.7 % Lymphocytes (%) (Auto) 15.3 % 17.6 % Monocytes (%) (Auto) 13.8 % 12.2 % Eosinophils (%) (Auto) 1.0 % 0.9 % Basophils (%) (Auto) 0.8 % 0.6 % Neutrophils # (Auto) 8.1 TH/MM3 7.1 TH/MM3 Lymphocytes # (Auto) 1.8 TH/MM3 1.8 TH/MM3 Monocytes # (Auto) 1.6 TH/MM3 1.3 TH/MM3 Eosinophils # (Auto) 0.1 TH/MM3 0.1 TH/MM3 Basophils # (Auto) 0.1 TH/MM3 0.1 TH/MM3 CBC Comment AUTO DIFF AUTO DIFF Differential Total Cells Counted 100 100 Neutrophils % (Manual) 73 % 61 % Band Neutrophils % 8 % 17 % Lymphocytes % 6 % 10 % Monocytes % 9 % 9 % Basophils % 1 % Neutrophils # (Manual) 9.8 TH/MM3 8.3 TH/MM3 Myelocytes 3 % 3 % Differential Comment FINAL DIFF MANUAL FINAL DIFF MANUAL Toxic Granulation 1+ Platelet Estimate NORMAL NORMAL Platelet Morphology Comment NORMAL NORMAL Laboratory Tests Test 05/29/17 04:05 05/30/17 05:38 Blood Urea Nitrogen 17 MG/DL 17 MG/DL Creatinine 0.90 MG/DL 0.96 MG/DL Random Glucose 249 MG/DL 254 MG/DL Calcium Level 9.1 MG/DL 8.7 MG/DL Sodium Level 141 MEQ/L 138 MEQ/L Potassium Level 4.4 MEQ/L 4.1 MEQ/L Chloride Level 99 MEQ/L 98 MEQ/L Carbon Dioxide Level 31.5 MEQ/L 27.0 MEQ/L Anion Gap 11 MEQ/L 13 MEQ/L Estimat Glomerular Filtration Rate 63 ML/MIN 58 ML/MIN Magnesium Level 1.3 MG/DL Microbiology Date/Time Source Procedure Growth Status 05/28/17 16:41 Blood Peripheral Aerobic Blood Culture - Preliminary NO GROWTH IN 2 DAYS Resulted 05/28/17 16:41 Blood Peripheral Anaerobic Blood Culture - Preliminary NO GROWTH IN 2 DAYS Resulted 05/28/17 16:38 Blood Peripheral Aerobic Blood Culture - Preliminary NO GROWTH IN 2 DAYS Resulted 05/28/17 16:38 Blood Peripheral Anaerobic Blood Culture - Preliminary NO GROWTH IN 2 DAYS Resulted Imaging Last Impressions Liver Ultrasound 05/21/17 0000 Signed Impressions: Service Date/Time: Sunday, May 21, 2017 10:32 - CONCLUSION: 1. Hepatic steatosis. 2. Gallstones 3. Limited evaluation of the right kidney. Santana Lamar MD Chest X-Ray 05/21/17 0000 Signed Impressions: Service Date/Time: Sunday, May 21, 2017 06:17 - CONCLUSION: 1. Limited suboptimal study with motion artifact. 2. No definite acute cardiac pulmonary disease. Austin Orellana MD Head CT 05/20/17 192 Signed Impressions: Service Date/Time: Saturday, May 20, 2017 19:55 - CONCLUSION: 1. No acute findings. Retention cyst right maxillary sinus. Jakob Scruggs MD Physical Exam GENERAL: Obese patient. SKIN: No rashes. Ecchymosis noted. HEAD: Atraumatic. Normocephalic. No temporal or scalp tenderness. EYES: Pupils equal round and reactive. Extraocular motions intact. No scleral icterus. No injection or drainage. ENT: Nose without bleeding, purulent drainage or septal hematoma. Throat without erythema, tonsillar hypertrophy or exudate. Uvula midline. Airway patent. NECK: Large neck. CARDIOVASCULAR: Regular rate and rhythm without murmurs, gallops, or rubs. RESPIRATORY: Breath sounds equal bilaterally. Occ Wheezing noted. Basilar crackles. GASTROINTESTINAL: Abdomen soft, non-tender, nondistended. Obese. MUSCULOSKELETAL: Extremities without clubbing, cyanosis. Significant swelling bilateral LE upto knees pitting edema. Some erythema noted, minimal warmth. Some skin breaks noted R> L LE. NEUROLOGICAL: Confused, moans and groans, moves extremities spontaneously. Did not follow commands for me. Psych cooperative IV line sites with no e/o infection. Assessment & Plan Remarks Sepsis. Meningitis/discitis Strep Grp B bacteremia sources: skin, GI. Rule out epidural abscess,meningitis. Bilateral R> L LE cellulitis. ? aspiration PNA possible HCAP. Back pain. reports chronic pain with increase in intensity and severity. Acute renal failure on admit appears improving today. Hypercapnic resp failure: Sleep apnea based on history HTN DM2 uncontrolled. Obesity BMI 49.7 kg/m2 Recs: Continue Ceftriaxone IV q12 for possible meningitis/epidural abscess. DC Azithro Start Levaquin oral (for atypical and PSAE coverage) Start Flagyl oral (for aspiration coverage) Start Zyvox IV (for empiric MRSA coverage). Follow repeat blood cultures. 2D ECHO reviewed no vegetations. MRI L spine reviewed concerning for possible discitis given clinical picture. MRI Brain normal. WBC scan process started today. Transferred to ICU imagining part will be attempted in am if condition permits. Repeat CXR today. D.w pts spouse in room change in condition and above new plan for the day. Follow clinically. Follow culture susceptibility. Nan Portillo MD May 30, 2017 12:32
[2017-05-30] MEDS: ACETAMINOPHEN 325 MG TAB PO PRN (12:44)
[2017-05-30] MEDS: NYSTATIN 100,000 U/GM PWD 15 GM BTL TOPICAL SCH ×2 (12:44→21:00)
[2017-05-30] MEDS ORDERED: LEVOFLOXACIN 500 MG TAB PO SCH (13:00)
[2017-05-30] MEDS ORDERED: ACETAMINOPHEN 650 MG SUPP RECTAL PRN (13:15)
[2017-05-30] MEDS: metroNIDAZOLE 500 MG INJ 100 ML IV SCH ×2 (13:45→21:01)
[2017-05-30] MEDS: LEVOFLOXACIN 500 MG PREMIX INJ 100 ML IV SCH (13:45)
[2017-05-30] MEDS: LINEZOLID 600 MG PREMIX 300 ML IV SCH (13:45)
--- NOTE | 2017-05-30 13:45 | PD.WCN.NOT ---
Wound Consult Description: Received consult from Doctor Rivera for wound management of L lower leg Communicated with: SHANNON Clifford 5th floor [facility] [place] and Doctor rivera Recommendation: Please cleanse bilateral legs with soap and water daily and pat dry. Apply moisturizer to skin and leave open to air Additional Information: Patient seen on 5th floor [facility] [place] of wound management of L lower leg. Patient is having pain in legs and back.SCDs peeled back to reveal dry small scab measuring ~1cm x~1cm on L lateral lower leg, Just below scab is small deflated blood blister that appears to be resolving and measuring ~1.4cm x ~0.7 cm . L medial keys is noted with small roofed bulla measuring ~1.2 cm x ~ 1.2cm, that also appears to be resolving and is dry and intact. Left scab and blisters open to air. BLE present with trace edema and weak pedal pulses.May need Vascular consult to to L leg pain and weak pedal pulses. Palak Love [facility] May 30, 2017 13:45
[2017-05-30] MEDS: NS + KCL 20 MEQ INJ 1,000 ML IV SCH (13:46)
[2017-05-30] MEDS ORDERED: metroNIDAZOLE 500 MG TAB PO SCH (14:00)
[2017-05-30 14:22] LABS: BACTERIA, URINE RARE /hpf; BLOOD, URINE MOD (NEG); GLUCOSE,URINE TRACE mg/dL (NEG); GRANULAR CAST, URINE 1 /lpf; HYALINE CAST, URINE 10 /lpf (RARE); KETONE, URINE 40 mg/dL (NEG); MUCUS URINE MANY /lpf (OCC); NITRITE,URINE NEG (NEG); PH, URINE 5.5 (5.0-8.5); SQUAMOUS EPITHELIAL CELL URINE 2 /hpf (0-5); URINE COLOR YELLOW (YELLW/STRAW)
[2017-05-30 14:23] LABS: COMMENT (UR) CATH-CULTURE IND; CULTURE IF INDICATED CATH CULTURE IND
--- NOTE | 2017-05-30 15:03 | RADRPT ---
EXAM DATE/TIME: 05/30/2017 12:29 [place] COMPARISON: CHEST SINGLE AP, May 29, 2017, 5:44. INDICATIONS : Shortness of breath. MEDICAL HISTORY : Hypertension. Diabetes. Dyspnea. SURGICAL HISTORY : section. ENCOUNTER: Initial ACUITY: 1 day PAIN SCORE: Non-responsive. LOCATION: Bilateral chest FINDINGS: Heart is enlarged. There is evidence of mild pulmonary vascular congestion/atelectactic changes. Th e examination is somewhat limited due to respiratory motion. CONCLUSION: 1. Mild pulmonary vascular congestion/atelectactic changes bilaterally. 2. Cardiomegaly. Nikita Damon MD on May 30, 2017 at 13:54 Board Certified Radiologist. This report was verified electronically.
[2017-05-30 15:16] LABS: BLOOD GAS CARBOXYHEMOGLOBIN 1.2 % (0-4); BLOOD GAS HCO3 27 mmol/L (22-26); BLOOD GAS METHEMOGLOBIN 1.2 % (0-2); BLOOD GAS O2 HGB SATURATION 92 % (90-100); BLOOD GAS OXYGEN CONTENT 14.4 Vol % (12.0-20.0); BLOOD GAS PCO2 43 mmHg (38-42); BLOOD GAS PO2 74 mmHg (61-120); BLOOD GAS TOTAL HGB 11.2 G/DL (12.0-16.0); TEMP CORR TO 98.6
[2017-05-30 15:17] LABS: CRITICAL VALUE NO; DRAW SITE LT RADIAL; LITER FLOW 7 L/M; NUMBER OF ARTERIAL PUNCTURES 1; OXYGEN DEVICE MASK; STAT YES; ULNAR PULSE PRESENT
[2017-05-30 16:43] LABS: INDIRECT BILIRUBIN 0.3 MG/DL (0.0-0.8); TOTAL BILIRUBIN ADULT 0.4 MG/DL (0.2-1.0)
--- NOTE | 2017-05-30 19:19 | HHI.CCPN ---
Subjective Remarks/Hospital Course 66-year-old female presents confused and lethargic. Patient reportedly was recently seen today at an urgent care and received an injection for low back pain. Patient here denies headaches, chest pain or shortness of breath, abdominal pain or extremity pain. Patient does complain of low back pain. at bedside states that they're visiting from [place] of state for the past 3 months and will be returning back to their home state in a week. reports patient has chronic low back pain but this exacerbated over the last 24 hours starting yesterday morning. Patient was seen earlier today by her chiropractor for an adjustment and then was referred to an urgent care. Patient reportedly had a fever at the chiropractor's office and felt cold and clammy. At the urgent care patient was evaluated and reportedly had an injection of a nonsteroidal medication as she is diabetic and he did not want to give her a steroid injection. Patient went home about 1:00 PM she was drowsy so sat down in a chair and fell asleep according to the . He tried to awaken her at 4:30 and noticed that she was confusional and lethargic. He attempted to continue to awaken her over the next 2-3 hours and because she was not improving decided finally to call EMS to transport her to the emergency room. Patient and spouse denied any recent injury or fall. Patient was ambulatory this morning but this evening has difficulty elevating her lower extremities as well as she was generally extremely weak. 05/21 Patient is on BIPAP 12/5 with 45% FIO2. Afebrile. Awake. Renal function is improving with Cr: 1.87 from 2.74. 05/22 No events overnight. Patient is more awake and alert off BIPAP. Renal function is improving with Cr: 1.07 from 1.87. delayed note entry. consulted and seen at ~1500. RECONSULT NOTE: 05/30: reconsulted for worsening hypoxemia. now on 6L facemask. please refer to prior consult note for detailed medical history. In brief, 66yF lethargic female, back pain after injection, ? discitis/osteo, on abx for group B strep, worsening fever, tachycardia, tachypnea, o2 requirement to 6L facemask and RR up to 40s. patient unable to provide additional history but does appear in distress. Objective Vital Signs Date Time Temp Pulse Resp B/P (MAP) Pulse Ox O2 Delivery O2 Flow Rate FiO2 05/30/17 16:00 101.8 109 25 124/55 (78) 93 05/30/17 08:00 Simple Mask 8.00 05/29/17 16:00 40 Intake and Output 05/30/17 05/30/17 05/30/17 07:59 15:59 23:59 Intake Total 657 ml 1000 ml 700 ml Output Total 700 ml 400 ml Balance -43 ml 1000 ml 300 ml Result Diagram: 05/30/17 0538 05/30/17 0538 Other Results Laboratory Tests Test 05/30/17 15:00 Blood Gas Puncture Site LT RADIAL Blood Gas Patient Temperature 98.6 Blood Gas HCO3 27 mmol/L (22-26) Blood Gas Base Excess 3.0 mmol/L (-2-2) Blood Gas Oxygen Saturation 92 % (90-100) Arterial Blood pH 7.42 (7.380-7.420) Arterial Blood Partial Pressure CO2 43 mmHg (38-42) Arterial Blood Partial Pressure O2 74 mmHg (61-120) Arterial Blood Oxygen Content 14.4 Vol % (12.0-20.0) Arterial Blood Carboxyhemoglobin 1.2 % (0-4) Arterial Blood Methemoglobin 1.2 % (0-2) Blood Gas Hemoglobin 11.2 G/DL (12.0-16.0) Oxygen Delivery Device MASK Blood Gas Liter Flow 7 L/M Imaging Last Impressions Liver Ultrasound 05/21/17 0000 Signed Impressions: Service Date/Time: Sunday, May 21, 2017 10:32 - CONCLUSION: 1. Hepatic steatosis. 2. Gallstones 3. Limited evaluation of the right kidney. Santana Lamar MD Chest X-Ray 05/21/17 0000 Signed Impressions: Service Date/Time: Sunday, May 21, 2017 06:17 - CONCLUSION: 1. Limited suboptimal study with motion artifact. 2. No definite acute cardiac pulmonary disease. Austin Orellana MD Head CT 05/20/171928 Signed Impressions: Service Date/Time: Saturday, May 20, 2017 19:55 - CONCLUSION: 1. No acute findings. Retention cyst right maxillary sinus. Jakob Scruggs MD Objective Remarks GENERAL: Patient is 66 yo lying in bed, in respiratory distress SKIN: Warm and dry. HEAD: Normocephalic. EYES: No scleral icterus. No injection or drainage. NECK: trachea midline. No JVD CARDIOVASCULAR: tachycardic rate, regular rhythm. RESPIRATORY: coarse breath sounds bilaterally. RR 30s, 6L facemask. spo2 92% GASTROINTESTINAL: Abdomen soft, non-tender, nondistended. MUSCULOSKELETAL: No cyanosis, or edema. Neuro: RASS -2. CAM +. not oriented. 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 toxic/metabolic, with worsening hypoxic respiratory failure. Given the clinical scenario most likely new HCAP/Aspiration pneumonia. Critically ill with worsening o2 requirement. Acute hypoxic respiratory failure Likely new HCAP/Aspiration pneumonia Acute encephalopathy Possible volume overload Plan - wean o2 for spo2 > 90%. - may require intubation if she clinically worsens - abx per ID. - lasix 20mg iv x 1 to ensure negative fluid balance. - if she progresses to worsening septic shock, may require vasopressors. - if she continues to worsen from a hypoxia standpoint, may require intubation. - check LFTs, lactate. if elevated, would suggest worsening sepsis. Critical care time: 45 minutes, exclusive of separately billable procedures. Bang Anthony MD May 30, 2017 19:19
[2017-05-30 19:41] LABS: BLOOD GAS BASE EXCESS 3.5 mmol/L (-2-2); BLOOD GAS CARBOXYHEMOGLOBIN 1.2 % (0-4); BLOOD GAS HCO3 29 mmol/L (22-26); BLOOD GAS METHEMOGLOBIN 1.3 % (0-2); BLOOD GAS O2 HGB SATURATION 91 % (90-100); BLOOD GAS OXYGEN CONTENT 14.2 Vol % (12.0-20.0); BLOOD GAS PCO2 51 mmHg (38-42); BLOOD GAS PO2 75 mmHg (61-120); CRITICAL VALUE YES; LITER FLOW 7 L/M; OXYGEN DEVICE MASK; TEMP CORR TO 98.6
[2017-05-30 19:42] LABS: DRAW SITE RT RADIAL; FIO2 50 %; NUMBER OF ARTERIAL PUNCTURES 1; STAT YES; ULNAR PULSE PRESENT
--- NOTE | 2017-05-30 19:54 | HHI.PR ---
Subjective Remarks 66 YOObese WF with Hypercapnoea, Cellulitis, Bactremia had Percocet for pain No Fever Back pain better On VM BP border line, decreased urine output Objective Vital Signs Vital Signs Date Time Temp Pulse Resp B/P (MAP) Pulse Ox O2 Delivery O2 Flow Rate FiO2 05/30/17 16:00 Simple Mask 8.00 05/30/17 16:00 101.8 109 25 124/55 (78) 93 05/30/17 15:00 109 32 124/58 (80) 92 05/30/17 14:05 105 0 133/60 (84) 95 05/30/17 13:01 102 0 104/49 (67) 98 05/30/17 12:01 102.2 104 0 118/53 (74) 94 05/30/17 12:00 Simple Mask 8.00 05/30/17 11:01 104 0 113/53 (73) 91 05/30/17 10:01 107 0 116/56 (76) 91 05/30/17 09:01 103 0 165/66 (99) 90 05/30/17 08:01 99.8 101 0 139/62 (87) 92 05/30/17 08:00 Simple Mask 8.00 05/30/17 06:00 101 05/30/17 04:39 94 Simple Mask 05/30/17 04:00 91 Simple Mask 8.00 05/30/17 04:00 99.3 102 121/55 (77) 91 05/30/17 04:00 102 05/30/17 02:00 103 05/30/17 00:22 93 Simple Mask 05/30/17 00:00 101 05/30/17 00:00 99.4 101 134/62 (86) 95 05/30/17 00:00 95 Simple Mask 8.00 05/29/17 22:00 104 05/29/17 20:00 100.9 105 39 134/59 (84) 93 05/29/17 20:00 93 Simple Mask 8.00 05/29/17 20:00 105 I/O 05/29/17 05/29/17 05/29/17 05/30/17 05/30/17 05/30/17 07:00 15:00 23:00 07:00 15:00 23:00 Intake Total 60 ml 2112 ml 657 ml 1000 ml 700 ml Output Total 1000 ml 700 ml 400 ml Balance -940 ml 2112 ml -43 ml 1000 ml 300 ml Intake Oral 60 ml 90 ml 100 ml 100 ml IV Total 2022 ml 557 ml 1000 ml 600 ml Output Urine Total 1000 ml 700 ml 400 ml Stool Total 0 ml # Bowel Movements 0 Result Diagram: 05/30/1753705/30/17537 Objective Remarks GENERAL: Morbidly obese WF, mild sob SKIN: Warm and dry. HEAD: Normocephalic. EYES: No scleral icterus. No injection or drainage. NECK: Supple, trachea midline. No JVD or lymphadenopathy. CARDIOVASCULAR: Regular rate and rhythm without murmurs, gallops, or rubs. RESPIRATORY: Breath sounds equal bilaterally. No accessory muscle use. GASTROINTESTINAL: Abdomen soft, non-tender, nondistended. MUSCULOSKELETAL: No cyanosis, or edema. has swelling and redness of legs BACK: Nontender without obvious deformity. No CVA tenderness. A/P Assessment and Plan Hypercapnoic Resp Insuff CHE or Obesity Hypoventilation synd Cellulitis legs Bactremia back pain PLAN: Aerosol nebs Wean 02 to keep sat 88-92% Abx per ID Cont Dilantin Hairspring Adjuster consulted Dima Bang MD May 30, 2017 19:54
[2017-05-30] MEDS ORDERED: FUROSEMIDE 20 MG/2 ML VIAL IV PUSH ONE (20:15)
[2017-05-30 21:31] LABS: BLOOD GAS BASE EXCESS 3.9 mmol/L (-2-2); BLOOD GAS CARBOXYHEMOGLOBIN 1.2 % (0-4); BLOOD GAS HCO3 29 mmol/L (22-26); BLOOD GAS METHEMOGLOBIN 1.1 % (0-2); BLOOD GAS O2 HGB SATURATION 87 % (90-100); BLOOD GAS OXYGEN CONTENT 14.5 Vol % (12.0-20.0); BLOOD GAS PCO2 49 mmHg (38-42); BLOOD GAS PO2 62 mmHg (61-120); BLOOD GAS TOTAL HGB 11.9 G/DL (12.0-16.0); TEMP CORR TO 98.6
[2017-05-30 21:33] LABS: CRITICAL VALUE YES; DRAW SITE RD; FIO2 30 %; NUMBER OF ARTERIAL PUNCTURES 1; OXYGEN DEVICE HIGH FLOW; ULNAR PULSE Y
[2017-05-30 21:34] LABS: STAT NO
[2017-05-31] VITALS (20 sets, daily range): BP systolic 99–125; BP diastolic 50–57; PULSE 104–114; RESP 28–47; TEMP 99.6–103.1; O2SAT 85–96
[2017-05-31] MEDS: CHLORHEXIDINE GLUCONATE 2 % 1 PACK (2 CLOTHS) TOP SCH (01:42)
[2017-05-31] MEDS: LINEZOLID 600 MG PREMIX 300 ML IV SCH ×2 (01:42→13:09)
[2017-05-31] MEDS: INSULIN NovoLIN REGULAR SUPPLEMENTAL SCALE SQ SCH ×5 (04:00→16:00)
[2017-05-31] MEDS: cefTRIAXone INJ 2,000 MG in SODIUM CHLORIDE 0.9% INJ 100 ML IV SCH ×2 (05:00→16:12)
[2017-05-31] MEDS: PHENYTOIN INJ 100 MG/2 ML VIAL IV SCH ×3 (05:16→21:04)
[2017-05-31] MEDS: metroNIDAZOLE 500 MG INJ 100 ML IV SCH ×3 (05:16→21:03)
[2017-05-31] MEDS: HEPARIN SODIUM - SQ 10,000 UNITS/ML VIAL SQ SCH ×3 (05:16→21:03)
[2017-05-31 07:08] LABS: BLOOD GAS BASE EXCESS 3.2 mmol/L (-2-2); BLOOD GAS CARBOXYHEMOGLOBIN 1.1 % (0-4); BLOOD GAS HCO3 27 mmol/L (22-26); BLOOD GAS METHEMOGLOBIN 1.1 % (0-2); BLOOD GAS O2 HGB SATURATION 90 % (90-100); BLOOD GAS OXYGEN CONTENT 15.8 Vol % (12.0-20.0); BLOOD GAS PCO2 43 mmHg (38-42); BLOOD GAS PO2 65 mmHg (61-120); BLOOD GAS TOTAL HGB 12.5 G/DL (12.0-16.0); TEMP CORR TO 98.6
[2017-05-31 07:09] LABS: CRITICAL VALUE NO; DRAW SITE RD; FIO2 55 %; NUMBER OF ARTERIAL PUNCTURES 1; OXYGEN DEVICE HIGH FLOW; ULNAR PULSE Y
[2017-05-31 07:10] LABS: LITER FLOW 20 L/M; STAT NO
[2017-05-31] MEDS: DOCUSATE SODIUM 50 MG/SENNA 8.6 MG TAB PO SCH ×2 (08:54→21:00)
[2017-05-31] MEDS: NYSTATIN 100,000 U/GM PWD 15 GM BTL TOPICAL SCH ×2 (08:54→21:00)
[2017-05-31] MEDS: SODIUM CHLORIDE 0.9% FLUSH 10 ML FLUSH IV FLUSH SCH ×2 (08:56→21:00)
[2017-05-31] MEDS: LISINOPRIL 10 MG TAB PO SCH (08:57)
[2017-05-31] MEDS: INSULIN DETEMIR 100 UNITS/ML VIAL SQ SCH ×2 (08:57→21:00)
[2017-05-31] MEDS: FUROSEMIDE 20 MG/2 ML VIAL IV PUSH SCH ×2 (08:57→18:00)
[2017-05-31] MEDS: FAMOTIDINE 20 MG/2 ML VIAL IV PUSH SCH ×2 (08:57→21:00)
[2017-05-31] MEDS: NS + KCL 20 MEQ INJ 1,000 ML IV SCH (08:59)
[2017-05-31] MEDS ORDERED: FUROSEMIDE 40 MG/4 ML VIAL IV PUSH ONE (10:30)
--- NOTE | 2017-05-31 10:30 | HHI.IDPN ---
Subjective Subjective Remarks is a 66-year-old female presents confused and lethargic. Patient reportedly was recently seen today at an urgent care and received an injection for low back pain. Patient here denies headaches, chest pain or shortness of breath, abdominal pain or extremity pain. Patient does complain of low back pain. at bedside states that they're visiting from out of state for the past 3 months and will be returning back to their home state in a week. reports patient has chronic low back pain but this exacerbated over the last 24 hours starting yesterday morning. Patient was seen earlier today by her chiropractor for an adjustment and then was referred to an urgent care. Patient reportedly had a fever at the chiropractor's office and felt cold and clammy. At the urgent care patient was evaluated and reportedly had an injection of a nonsteroidal medication as she is diabetic and he did not want to give her a steroid injection. Patient went home about 1:00 PM she was drowsy so sat down in a chair and fell asleep according to the . He tried to awaken her at 4:30 and noticed that she was confusional and lethargic. He attempted to continue to awaken her over the next 2-3 hours and because she was not improving decided finally to call EMS to transport her to the emergency room. Patient and spouse denied any recent injury or fall. Patient was ambulatory this morning but this evening has difficulty elevating her lower extremities as well as she was generally extremely weak. Remains in ICU for low O2 sats and lethargy/AMS. Opens eyes spontaneously. Answers occ questions. Still complains of back pain. No B/B incontinence. No LE weakness or paresthesia. Fevers overnight. No rash No diarrhea Antibiotics I attest I reviewed, obtained or updated pts home meds and current meds for name , dose, duration and frequency of medications. Reported Meds & Active Scripts Active Walker with Front Wheels (Device) 1 Mis Mis Ea .ROUTE DIRECTED Reported Novolog Mix 70-30 Inj (Insulin Aspart Prota 70%/Aspart 30%) 1,000 Unit/10 Ml Vial Unknown Dose SQ BIDAC Glimepiride 1 Mg Tab Unknown Dose PO DAILY Take with breakfast or first main meal Lisinopril-Hctz 10-12.5 Mg Tab Unknown Dose PO DAILY Metformin (Metformin HCl) 1,000 Mg Tab Unknown Dose PO BIDPC Current Medications Medications (Trade) Dose Ordered Sig/Erasmo Route Start Time Stop Time Status Last Admin (Pepcid Inj) 10 mg Q12HR IV PUSH 05/21/17 09:00 05/24/17 09:38 (Heparin Inj) 5,000 units Q8H SQ 05/20/17 22:00 05/24/17 12:28 Miscellaneous Information 1 Q361D XX 05/20/17 22:30 (Chlorhexidine 2% Cloth) 3 pack Taper DAILY@04 TOP 05/21/17 04:00 05/17/18 03:59 05/23/17 04:00 (Chlorhexidine 2% Cloth) 3 pack UNSCH PRN TOP 05/20/17 22:30 (Tylenol) 650 mg Q6H PRN PO 05/21/17 01:30 (Duoneb Neb) 1 ampule Q2HR NEB PRN NEB 05/21/17 05:45 05/24/17 16:41 (Levemir Inj) 10 units Q12HR SQ 05/22/17 09:00 05/24/17 09:36 (D50w (Vial) Inj) 50 ml UNSCH PRN IV PUSH 05/22/17 07:30 (Glucagon Inj) 1 mg UNSCH PRN OTHER 05/22/17 07:30 (NovoLIN R SUPPLEMENTAL SCALE) 1 Q4H SQ 05/22/17 08:00 05/24/17 17:28 (Duoneb Neb) 1 ampule BID NEB NEB 05/22/17 20:00 05/24/17 07:52 (Percocet 10-325 Mg) 1 tab Q4HR PRN PO 05/23/17 09:45 05/24/17 17:31 (Morphine Inj) 4 mg Q3H PRN IV PUSH 05/23/17 09:45 (Prinivil) 10 mg DAILY PO 05/23/17 10:00 05/24/17 09:41 (Apresoline Inj) 10 mg Q6H PRN IV PUSH 05/23/17 10:00 Ceftriaxone Sodium 2000 mg/ Sodium Chloride 100 ml @ 200 mls/hr Q24H IV 05/25/17 06:00 (NS Flush) 2 ml UNSCH PRN IV FLUSH 05/24/17 12:15 (NS Flush) 2 ml BID IV FLUSH 05/24/17 21:00 (Narcan Inj) 0.4 mg UNSCH PRN IV PUSH 05/24/17 12:15 (May-Colace) 1 tab BID PO 05/24/17 21:00 (Milk Of Magnesia Liq) 30 ml Q12H PRN PO 05/24/17 12:15 05/24/17 13:45 (Senokot) 17.2 mg Q12H PRN PO 05/24/17 12:15 (Dulcolax Supp) 10 mg DAILY PRN RECTAL 05/24/17 12:15 (Lactulose Liq) 30 ml DAILY PRN PO 05/24/17 12:15 (Catapres) 0.1 mg Q4H PRN PO 05/24/17 12:30 05/24/17 13:43 (Lasix Inj) 40 mg NOW ONCE IV PUSH 05/24/17 18:45 05/24/17 18:46 Lines Line sites with no e.o infection Past Medical History Diabetes Dyslipidemia Hypertension Chronic back pain sees a chiropracter. Chronic lower extremity swelling. Never had an ECHO before per pt and spouse. ? Sleep apnea. Allergies: Coded Allergies: No Known Allergies (Unverified , 05/20/17) Objective . Vital Signs Date Time Temp Pulse Resp B/P (MAP) Pulse Ox O2 Delivery O2 Flow Rate FiO2 05/31/17 09:23 92 High Flow Nasal Cannula 40.00 60 05/31/17 09:00 110 30 109/51 (70) 92 05/31/17 08:00 Nasal Cannula 40.00 60 05/31/17 08:00 99.6 111 30 109/54 (72) 92 05/31/17 08:00 111 05/31/17 07:01 110 28 112/50 (70) 90 05/31/17 06:00 111 05/31/17 04:00 89 Nasal Cannula 05/31/17 04:00 111 05/31/17 04:00 100.5 111 47 125/57 (79) 89 05/31/17 03:35 91 High Flow Nasal Cannula 50 05/31/17 02:00 109 05/31/17 00:24 92 High Flow Nasal Cannula 50 05/31/17 00:00 99.9 104 40 99/52 (68) 89 05/31/17 00:00 89 Nasal Cannula 05/31/17 00:00 104 05/30/17 22:00 104 05/30/17 20:30 93 High Flow Nasal Cannula 50 05/30/17 20:00 95 Simple Mask 8.00 05/30/17 20:00 103 05/30/17 20:00 99.1 103 38 104/50 (68) 95 05/30/17 19:56 91 Simple Mask 9.00 05/30/17 16:00 Simple Mask 8.00 05/30/17 16:00 101.8 109 25 124/55 (78) 93 05/30/17 15:00 109 32 124/58 (80) 92 05/30/17 14:05 105 0 133/60 (84) 95 05/30/17 13:01 102 0 104/49 (67) 98 05/30/17 12:01 102.2 104 0 118/53 (74) 94 05/30/17 12:00 Simple Mask 8.00 05/30/17 11:01 104 0 113/53 (73) 91 . Laboratory Tests Test 05/30/17 05:38 White Blood Count 10.3 TH/MM3 Red Blood Count 4.11 MIL/MM3 Hemoglobin 12.0 GM/DL Hematocrit 37.9 % Mean Corpuscular Volume 92.2 FL Mean Corpuscular Hemoglobin 29.2 PG Mean Corpuscular Hemoglobin Concent 31.7 % Red Cell Distribution Width 16.2 % Platelet Count 178 TH/MM3 Mean Platelet Volume 10.8 FL Neutrophils (%) (Auto) 68.7 % Lymphocytes (%) (Auto) 17.6 % Monocytes (%) (Auto) 12.2 % Eosinophils (%) (Auto) 0.9 % Basophils (%) (Auto) 0.6 % Neutrophils # (Auto) 7.1 TH/MM3 Lymphocytes # (Auto) 1.8 TH/MM3 Monocytes # (Auto) 1.3 TH/MM3 Eosinophils # (Auto) 0.1 TH/MM3 Basophils # (Auto) 0.1 TH/MM3 CBC Comment AUTO DIFF Differential Total Cells Counted 100 Neutrophils % (Manual) 61 % Band Neutrophils % 17 % Lymphocytes % 10 % Monocytes % 9 % Neutrophils # (Manual) 8.3 TH/MM3 Myelocytes 3 % Differential Comment FINAL DIFF MANUAL Toxic Granulation 1+ Platelet Estimate NORMAL Platelet Morphology Comment NORMAL Laboratory Tests Test 05/30/17 05:38 05/30/17 15:45 05/30/17 15:55 05/30/17 20:51 Blood Urea Nitrogen 17 MG/DL Creatinine 0.96 MG/DL Random Glucose 254 MG/DL Calcium Level 8.7 MG/DL Magnesium Level 1.3 MG/DL Sodium Level 138 MEQ/L Potassium Level 4.1 MEQ/L Chloride Level 98 MEQ/L Carbon Dioxide Level 27.0 MEQ/L Anion Gap 13 MEQ/L Estimat Glomerular Filtration Rate 58 ML/MIN Total Bilirubin 0.4 MG/DL Direct Bilirubin 0.1 MG/DL Indirect Bilirubin 0.3 MG/DL Aspartate Amino Transf (AST/SGOT) 44 U/L Alanine Aminotransferase (ALT/SGPT) 28 U/L Alkaline Phosphatase 65 U/L Total Protein 7.1 GM/DL Albumin 1.8 GM/DL Lactic Acid Level 1.5 mmol/L Ammonia 32 MCMOL/L Microbiology Date/Time Source Procedure Growth Status 05/30/17 17:02 Blood Peripheral Aerobic Blood Culture Pending Received 05/30/17 17:02 Blood Peripheral Anaerobic Blood Culture Pending Received 05/30/17 16:00 Blood Peripheral Aerobic Blood Culture Pending Received 05/30/17 16:00 Blood Peripheral Anaerobic Blood Culture Pending Received 05/28/17 16:41 Blood Peripheral Aerobic Blood Culture - Preliminary NO GROWTH IN 2 DAYS Resulted 05/28/17 16:41 Blood Peripheral Anaerobic Blood Culture - Preliminary NO GROWTH IN 2 DAYS Resulted 05/28/17 16:38 Blood Peripheral Aerobic Blood Culture - Preliminary NO GROWTH IN 2 DAYS Resulted 05/28/17 16:38 Blood Peripheral Anaerobic Blood Culture - Preliminary NO GROWTH IN 2 DAYS Resulted 05/30/17 13:30 Urine Catheterized Urine Urine Culture Pending Received Imaging Last Impressions Liver Ultrasound 05/21/17 0000 Signed Impressions: Service Date/Time: Sunday, May 21, 2017 10:32 - CONCLUSION: 1. Hepatic steatosis. 2. Gallstones 3. Limited evaluation of the right kidney. Santana Lamar MD Chest X-Ray 05/21/17 0000 Signed Impressions: Service Date/Time: Sunday, May 21, 2017 06:17 - CONCLUSION: 1. Limited suboptimal study with motion artifact. 2. No definite acute cardiac pulmonary disease. Austin Orellana MD Head CT [id number]/20/171928 Signed Impressions: Service Date/Time: Saturday, May 20, 2017 19:55 - CONCLUSION: 1. No acute findings. Retention cyst right maxillary sinus. Jakob Scruggs MD Physical Exam GENERAL: Obese patient. SKIN: No rashes. Ecchymosis noted. HEAD: Atraumatic. Normocephalic. No temporal or scalp tenderness. EYES: Pupils equal round and reactive. Extraocular motions intact. No scleral icterus. No injection or drainage. ENT: Nose without bleeding, purulent drainage or septal hematoma. Throat without erythema, tonsillar hypertrophy or exudate. Uvula midline. Airway patent. NECK: Large neck. CARDIOVASCULAR: Regular rate and rhythm without murmurs, gallops, or rubs. RESPIRATORY: Breath sounds equal bilaterally. Occ Wheezing noted. Basilar crackles. GASTROINTESTINAL: Abdomen soft, non-tender, nondistended. Obese. MUSCULOSKELETAL: Extremities without clubbing, cyanosis. Significant swelling bilateral LE upto knees pitting edema. Some erythema noted, minimal warmth. Some skin breaks noted R> L LE. NEUROLOGICAL: Confused, moans and groans, moves extremities spontaneously. Did not follow commands for me. Psych cooperative IV line sites with no e/o infection. Assessment & Plan Remarks Sepsis. 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 Strep Grp B bacteremia sources: skin as source. Bilateral R> L LE cellulitis. Aspiration PNA possible HCAP. Back pain. reports chronic pain with increase in intensity and severity. Acute renal failure on admit appears improving today. Acute resp failure: pulm edema,aspiration PNA, sleep apnea. HTN DM2 uncontrolled. Obesity BMI 49.7 kg/m2 Recs: Continue Ceftriaxone IV q12 for possible meningitis/epidural abscess. Continue Levaquin IV (for atypical and PSAE coverage) Continue Flagyl IV (for aspiration coverage) Continue Zyvox IV (for empiric MRSA coverage). Follow repeat blood cultures. 2D ECHO reviewed no vegetations. MRI L spine reviewed concerning for possible discitis given clinical picture. MRI Brain normal. Follow repeat winslow cultures. Repeat EEG today ? subclinical seizures. Reviewed repeat CXR c/w fluid overload. D.w pts spouse in room change in condition and above new plan for the day. Follow clinically. Follow culture susceptibility. Nan Portillo MD May 31, 2017 10:30
--- NOTE | 2017-05-31 10:34 | RADRPT ---
EXAM DATE/TIME: 05/31/2017 09:03 [facility] COMPARISON: CHEST SINGLE AP, May 30, 2017, 12:29. INDICATIONS : Respiratory Failure. MEDICAL HISTORY : Hypertension. Diabetes mellitus type 2. SURGICAL HISTORY : section. ENCOUNTER: Subsequent ACUITY: 1 week PAIN SCORE: Non-responsive. LOCATION: Bilateral chest FINDINGS: The heart is enlarged. The pulmonary vascular pattern is normal. The lungs are clear. CONCLUSION: 1. Cardiomegaly. 2. No acute focal pulmonary infiltrate or pulmonary vascular congestion. Nikita Damon MD on May 31, 2017 at 10:24 Board Certified Radiologist. This report was verified electronically.
[2017-05-31] MEDS: SODIUM CHLORIDE 0.9% FLUSH 10 ML FLUSH IV FLUSH PRN (10:37)
[2017-05-31] MEDS ORDERED: BUMETANIDE INJ 1 MG/4 ML VIAL IV PUSH ONE (11:00)
[2017-05-31] MEDS ORDERED: BUMETANIDE INJ 1 MG/4 ML VIAL ONE (11:02)
[2017-05-31] MEDS ORDERED: ETOMIDATE 20 MG/10 ML VIAL IV PUSH ONE (11:45)
[2017-05-31] MEDS ORDERED: fentaNYL CITRATE 250 MCG/5 ML AMP IV PUSH ONE (11:45)
[2017-05-31] MEDS ORDERED: BUMETANIDE INJ 100 ML IV SCH (11:57)
[2017-05-31 12:21] LABS: AUTOMATED NEUTROPHIL # 9.5 TH/MM3 (1.8-7.7); BASOPHIL # 0.2 TH/MM3 (0-0.2); BASOPHIL % 1.3 % (0.0-2.0); EOSINOPHIL # 0.1 TH/MM3 (0-0.4); EOSINOPHIL % 0.4 % (0.0-4.0); HEMATOCRIT 34.8 % (35.0-46.0); LYMPH % 17.4 % (9.0-44.0); LYMPHOCYTE # 2.4 TH/MM3 (1.0-4.8); MEAN CORPUSCULAR HEMOGLOBIN 28.9 PG (27.0-34.0); MEAN CORPUSCULAR HGB CONC 31.4 % (32.0-36.0); MONO % 11.4 % (0.0-8.0); NEUT % 69.5 % (16.0-70.0); PLATELET COUNT 167 TH/MM3 (150-450); RED BLOOD COUNT 3.78 MIL/MM3 (4.00-5.30); RED CELL DISTRIBUTION WIDTH 16.2 % (11.6-17.2); WHITE BLOOD COUNT 13.7 TH/MM3 (4.0-11.0)
[2017-05-31 12:28] LABS: HEMO FLAGS AUTO DIFF
[2017-05-31 12:50] LABS: BICARBONATE 28.3 MEQ/L (21.0-32.0); MAGNESIUM 1.6 MG/DL (1.5-2.5); POTASSIUM 4.8 MEQ/L (3.5-5.1)
[2017-05-31] MEDS: LEVOFLOXACIN 500 MG PREMIX INJ 100 ML IV SCH (14:22)
[2017-05-31 14:50] LABS: BANDS 16 % (0-6); MYELOCYTES 2 % (0-0); NEUTROPHIL # MANUAL DIFF 11.2 TH/MM3 (1.8-7.7); PLATELET ESTIMATE SMEAR NORMAL (NORMAL); PLATELET MORPHOLOGY NORMAL (NORMAL); POLYS (SEG NEUTROPHILS) 64 % (16-70); SCAN/DIFF FINAL DIFF MANUAL; WBC DIFF SAMPLE 100
[2017-05-31 14:51] LABS: STOMATOCYTES 1+ (NORMAL)
[2017-05-31 15:29] LABS: BLOOD GAS BASE EXCESS 2.5 mmol/L (-2-2); BLOOD GAS HCO3 27 mmol/L (22-26); BLOOD GAS METHEMOGLOBIN 1.2 % (0-2); BLOOD GAS O2 HGB SATURATION 91 % (90-100); BLOOD GAS OXYGEN CONTENT 15.4 Vol % (12.0-20.0); BLOOD GAS PCO2 41 mmHg (38-42); BLOOD GAS PO2 70 mmHg (61-120); CRITICAL VALUE NO; LITER FLOW 30 L/M; OXYGEN DEVICE NASAL CANNULA
[2017-05-31 15:30] LABS: DRAW SITE LT RADIAL; FIO2 50 %; NUMBER OF ARTERIAL PUNCTURES 1; STAT NO; TEMP CORR TO 98.6; ULNAR PULSE PRESENT
[2017-05-31] MEDS: ACETAMINOPHEN 1000 MG/100 ML VIAL IV PRN (16:51)
[2017-05-31] MEDS ORDERED: GLUCAGON 1 MG/ML VIAL IM/SQ PRN (17:15)
[2017-05-31] MEDS ORDERED: DEXTROSE 50% IN WATER 50 ML VIAL(D50) IV PRN (17:15)
--- NOTE | 2017-05-31 17:34 | HHI.CCPN ---
Subjective Remarks/Hospital Course 66-year-old female presents confused and lethargic. Patient reportedly was recently seen today at an urgent care and received an injection for low back pain. Patient here denies headaches, chest pain or shortness of breath, abdominal pain or extremity pain. Patient does complain of low back pain. at bedside states that they're visiting from out of state for the past 3 months and will be returning back to their home state in a week. reports patient has chronic low back pain but this exacerbated over the last 24 hours starting yesterday morning. Patient was seen earlier today by her chiropractor for an adjustment and then was referred to an urgent care. Patient reportedly had a fever at the chiropractor's office and felt cold and clammy. At the urgent care patient was evaluated and reportedly had an injection of a nonsteroidal medication as she is diabetic and he did not want to give her a steroid injection. Patient went home about 1:00 PM she was drowsy so sat down in a chair and fell asleep according to the . He tried to awaken her at 4:30 and noticed that she was confusional and lethargic. He attempted to continue to awaken her over the next 2-3 hours and because she was not improving decided finally to call EMS to transport her to the emergency room. Patient and spouse denied any recent injury or fall. Patient was ambulatory this morning but this evening has difficulty elevating her lower extremities as well as she was generally extremely weak. 05/21 Patient is on BIPAP 12/5 with 45% FIO2. Afebrile. Awake. Renal function is improving with Cr: 1.87 from 2.74. 05/22 No events overnight. Patient is more awake and alert off BIPAP. Renal function is improving with Cr: 1.07 from 1.87. delayed note entry. consulted and seen at ~1500. RECONSULT NOTE: 05/30: reconsulted for worsening hypoxemia. now on 6L facemask. please refer to prior consult note for detailed medical history. In brief, 66yF lethargic female, back pain after injection, ? discitis/osteo, on abx for group B strep, worsening fever, tachycardia, tachypnea, o2 requirement to 6L facemask and RR up to 40s. patient unable to provide additional history but does appear in distress. 05/31: Patient remains encephalopathic, on high flow O2 via nasal cannula, this morning was on 60 L/m 55% FiO2. Subsequently has dropped to 30 L/m to extubate percent FiO2. Given 80 mg IV Lasix with no response. Subsequently given Bumex 2 mg IV push and started on Bumex drip at 1 mg/h to attempt to diurese in an effort to improve respiratory status however has not had any increase in urine output with Bumex drip. Creatinine came back elevated at 2.13. Suspect acute kidney injury/ATN which may be a reason for poor response to diuretics. She also spiked a temperature of 103 for which IV Ofirmev was ordered. Objective Vital Signs Date Time Temp Pulse Resp B/P (MAP) Pulse Ox O2 Delivery O2 Flow Rate FiO2 05/31/17 14:00 110 05/31/17 12:54 96 High Flow Nasal Cannula 30.00 60 05/31/17 12:00 103.1 28 103/51 (68) Intake and Output 05/31/17 05/31/17 06/01/17 08:00 16:00 00:00 Intake Total 100 ml 2176 ml Output Total 375 ml Balance -275 ml 2176 ml Result Diagram: 05/31/17 1142 05/31/17 1142 Other Results Laboratory Tests Test 05/30/17 19:23 05/30/17 21:25 05/31/17 06:48 05/31/17 15:11 Blood Gas Puncture Site RT RADIAL RD RD LT RADIAL Blood Gas Patient Temperature 98.6 98.6 98.6 98.6 Blood Gas HCO3 29 mmol/L (22-26) 29 mmol/L (22-26) 27 mmol/L (22-26) 27 mmol/L (22-26) Blood Gas Base Excess 3.5 mmol/L (-2-2) 3.9 mmol/L (-2-2) 3.2 mmol/L (-2-2) 2.5 mmol/L (-2-2) Blood Gas Oxygen Saturation 91 % (90-100) 87 % (90-100) 90 % (90-100) 91 % ( 90-100) Arterial Blood pH 7.37 (7.380-7.420) 7.38 (7.380-7.420) 7.42 (7.380-7.420) 7.43 (7.380-7.420) Arterial Blood Partial Pressure CO2 51 mmHg (38-42) 49 mmHg (38-42) 43 mmHg (38-42) 41 mmHg (38-42) Arterial Blood Partial Pressure O2 75 mmHg (61-120) 62 mmHg (61-120) 65 mmHg (61-120) 70 mmHg (61-120) Arterial Blood Oxygen Content 14.2 Vol % (12.0-20.0) 14.5 Vol % (12.0-20.0) 15.8 Vol % (12.0-20.0) 15.4 Vol % (12.0-20.0) Arterial Blood Carboxyhemoglobin 1.2 % (0-4) 1.2 % (0-4) 1.1 % (0-4) 1.0 % (0-4) Arterial Blood Methemoglobin 1.3 % (0-2) 1.1 % (0-2) 1.1 % (0-2) 1.2 % (0-2) Blood Gas Hemoglobin 11.0 G/DL (12.0-16.0) 11.9 G/DL (12.0-16.0) 12.5 G/DL (12.0-16.0) 12.0 G/DL (12.0-16.0) Oxygen Delivery Device MASK HIGH FLOW HIGH FLOW NASAL CANNULA Blood Gas Liter Flow 7 L/M 20 L/M 30 L/M Blood Gas Inspired Oxygen 50 % 30 % 55 % 50 % Imaging Last Impressions Liver Ultrasound 05/21/17 0000 Signed Impressions: Service Date/Time: Sunday, May 21, 2017 10:32 - CONCLUSION: 1. Hepatic steatosis. 2. Gallstones 3. Limited evaluation of the right kidney. Santana Lamar MD Chest X-Ray 05/21/17 0000 Signed Impressions: Service Date/Time: Sunday, May 21, 2017 06:17 - CONCLUSION: 1. Limited suboptimal study with motion artifact. 2. No definite acute cardiac pulmonary disease. Austin Orellana MD Head CT 05/20/171928 Signed Impressions: Service Date/Time: Saturday, May 20, 2017 19:55 - CONCLUSION: 1. No acute findings. Retention cyst right maxillary sinus. Jakob Scruggs MD Objective Remarks GENERAL: Patient is 66 yo lying in bed, in respiratory distress SKIN: Warm and dry. HEAD: Normocephalic. EYES: No scleral icterus. No injection or drainage. NECK: trachea midline. No JVD CARDIOVASCULAR: tachycardic rate, regular rhythm. RESPIRATORY: coarse breath sounds bilaterally. RR 30s, 6L facemask. spo2 92% GASTROINTESTINAL: Abdomen soft, non-tender, nondistended. MUSCULOSKELETAL: No cyanosis, or edema. Neuro: RASS -2. CAM +. not oriented. Procedures None Date of Insertion: May 25, 2017 A/P Assessment and Plan Assessment: 66yF with encephalopathy thought to be secondary to BRAIN SURGEON infection vs. toxic/metabolic, with worsening hypoxic respiratory failure due to sepsis/ possible HCAP/Aspiration pneumonia. Critically ill with worsening o2 requirement. Severe sepsis Strep bacteremia (recent blood cultures negative) Encephalopathy Discitis Possible BRAIN SURGEON infection Acute hypoxic respiratory failure Possible new HCAP/Aspiration pneumonia Acute encephalopathy Possible volume overload JAMES Morbid obesity Suspect Obstructive sleep apnea syndrome Uncontrolled diabetes mellitus Plan Neuro -Follow neuro status. Abnormal EEG previously. Follow-up repeat EEG. Continue phenytoin. Neurology following. Cardiovascular - Watch for hypotension. Hold antihypertensives at this time. Discontinue lisinopril in view of JAMES. Attempt diuresis to mobilize fluid in view of worsening respiratory status which may partially be related to fluid overload in addition to possible aspiration/acute lung injury from sepsis. Pulmonary - wean o2 for spo2 > 90%. On high flow O2 decreased from 60 L/m and 55% FiO2 to 30 L/m 60% FiO2. Increased work of breathing noted. - may require intubation if she clinically worsens ID - abx per ID. on Rocephin, Levaquin, Zyvox, Flagyl IV. Follow-up cultures. Renal/ -Lasix 80 mg IV followed by Bumex 2 mg IV and then Bumex 1 mg/h GTT in order to mobilize fluid to avoid fluid overload. Not much response with Bumex drip in view of rising creatinine we'll consult nephrology as patient may need renal replacement therapy for fluid overload. GI/liver - Nothing by mouth till improvement in neurologic and resp status. May require Dobbhoff for tube feeds. Endocrine Continue Levemir. Increased from medium to high dose SSI for better glycemic control. Heme Follow CBC Prophylaxis -Heparin for DVT prophylaxis, Pepcid for GI prophylaxis. - if she progresses to worsening septic shock, may require vasopressors. -Check CPK, repeat BMP tonight. -Follow up ABGs. Discussed with patient's at bedside regarding current clinical condition including plan of care and he voiced understanding. I also explained that patient may require endotracheal intubation for worsening respiratory status. He tells me that he is okay with short term intubation however patient would not want to be ventilator dependent. I did discuss CODE STATUS and at this point patient will remain full CODE STATUS. Discussed with ID. Critical care time: 45 minutes, exclusive of separately billable procedures. Mejia Portillo MD May 31, 2017 17:34
--- NOTE | 2017-05-31 18:55 | PD.CONS ---
[facility] Service Nephrology Consult Requested By Dr. Portillo Reason for Consult Dr. Cabrera Primary Care Physician No Primary Care Physician History of Present Illness Patient is a 66-year-old obese female with history of diabetes who had chronic back pain and was going to chiropractor developed fever then was sent to urgent care and finally admitted to the hospital blood culture grew Streptococcus and she was treated for severe sepsis, she has altered mental status and unable to give any answers a lumbar puncture was done and she was suspected to have L3-L4 discitis and meningitis, patient has so far not responded within the developed acute renal failure with creatinine rising at 2.13 despite diuresis she was placed on Bumex drip and has not passed any urine Reid catheter was changed and she is remains anuric. I am consulted at this point. Her renal functions were abnormal and the point of admission creatinine was 2.7 however with the hydration they did improve and the baseline creatinine ranging about 0.7-0.9. Review of Systems ROS Limitations: Clinical Condition Past Family Social History Allergies: Coded Allergies: No Known Allergies (Unverified , 05/20/17) Past Medical History Diabetes Dyslipidemia Hypertension Arthritis Morbid obesity Chronic back pain sees a chiropractor Chronic lower extremity swelling. Past Surgical History Reported Medications Reported Meds & Active Scripts Active Walker with Front Wheels (Device) 1 Mis Mis Ea .ROUTE DIRECTED Reported Novolog Mix 70-30 Inj (Insulin Aspart Prota 70%/Aspart 30%) 1,000 Unit/10 Ml Vial Unknown Dose SQ BIDAC Glimepiride 1 Mg Tab Unknown Dose PO DAILY Take with breakfast or first main meal Lisinopril-Hctz 10-12.5 Mg Tab Unknown Dose PO DAILY Metformin (Metformin HCl) 1,000 Mg Tab Unknown Dose PO BIDPC Active Ordered Medications Current Medications Medications (Trade) Dose Ordered Sig/Erasmo Route Start Time Stop Time Status Last Admin (Heparin Inj) 5,000 units Q8H SQ 05/20/17 22:00 Future hold 05/31/17 14:21 Miscellaneous Information 1 Q361D XX 05/20/17 22:30 (Chlorhexidine 2% Cloth) Taper DAILY@04 TOP 05/21/17 04:00 05/17/18 03:59 05/31/17 01:42 (Chlorhexidine 2% Cloth) 3 pack UNSCH PRN TOP 05/20/17 22:30 (Tylenol) 650 mg Q6H PRN PO 05/21/17 01:30 (Duoneb Neb) 1 ampule Q2HR NEB PRN NEB 05/21/17 05:45 05/24/17 16:41 (Levemir Inj) 10 units Q12HR SQ 05/22/17 09:00 05/31/17 08:57 (D50w (Vial) Inj) 50 ml UNSCH PRN IV PUSH 05/22/17 07:30 (Glucagon Inj) 1 mg UNSCH PRN OTHER 05/22/17 07:30 (Apresoline Inj) 10 mg Q6H PRN IV PUSH 05/23/17 10:00 (NS Flush) 2 ml UNSCH PRN IV FLUSH 05/24/17 12:15 05/31/17 10:37 (NS Flush) 2 ml BID IV FLUSH 05/24/17 21:00 05/31/17 08:56 (Narcan Inj) 0.4 mg UNSCH PRN IV PUSH 05/24/17 12:15 (May-Colace) 1 tab BID PO 05/24/17 21:00 05/30/17 08:35 (Milk Of Magnesia Liq) 30 ml Q12H PRN PO 05/24/17 12:15 05/24/17 13:45 (Senokot) 17.2 mg Q12H PRN PO 05/24/17 12:15 (Dulcolax Supp) 10 mg DAILY PRN RECTAL 05/24/17 12:15 (Lactulose Liq) 30 ml DAILY PRN PO 05/24/17 12:15 (Catapres) 0.1 mg Q4H PRN PO 05/24/17 12:30 05/26/17 03:38 Ceftriaxone Sodium 2000 mg/ Sodium Chloride 100 ml @ 200 mls/hr Q12H IV 05/25/17 17:00 05/31/17 16:12 (Lasix Inj) 20 mg BID@09,18 IV PUSH 05/25/17 18:00 05/31/17 08:57 (Dilantin Inj) 100 mg Q8HR IV 05/26/17 22:00 05/31/17 13:09 (Dilaudid Pf Inj) 0.2 mg Q4H PRN IV PUSH 05/27/17 12:15 05/30/17 17:06 (Dilaudid Pf Inj) 0.5 mg Q4H PRN IV PUSH 05/27/17 12:15 05/29/17 10:15 (Mycostatin Powder) 1 applic Q12HR TOPICAL 05/30/17 10:00 05/31/17 08:54 Potassium Chloride 100 ml @ 50 mls/hr Q2H PRN IV 05/30/17 08:45 Potassium Chloride 100 ml @ 50 mls/hr Q2H PRN IV 05/30/17 08:45 (K-Lyte Cl Eff) 50 meq UNSCH PRN PO 05/30/17 08:45 Potassium Chloride 100 ml @ 25 mls/hr UNSCH PRN IV 05/30/17 08:45 Potassium Chloride 100 ml @ 50 mls/hr Q2H PRN IV 05/30/17 08:45 Magnesium Sulfate 4 gm/Sodium Chloride 100 ml @ 50 mls/hr UNSCH PRN IV 05/30/17 08:45 (Mag-Ox) 800 mg UNSCH PRN PO 05/30/17 08:45 Magnesium Sulfate 2 gm/Sodium Chloride 100 ml @ 50 mls/hr UNSCH PRN IV 05/30/17 08:45 (K-Phos) 2,000 mg Q4H PRN PO 05/30/17 08:45 Sodium Phosphate 30 mmol/Sodium Chloride 250 ml @ 42 mls/hr UNSCH PRN IV 05/30/17 08:45 (K-Phos) 2,000 mg UNSCH PRN PO/TUBE 05/30/17 08:45 Potassium Phosphate 30 mmol/ Sodium Chloride 260 ml @ 42 mls/hr UNSCH PRN IV 05/30/17 08:45 Linezolid 300 ml @ 300 mls/hr Q12H IV 05/30/17 13:00 05/31/17 13:09 Metronidazole 100 ml @ 100 mls/hr Q8HR IV 05/30/17 14:00 05/31/17 14:22 Levofloxacin/ Dextrose 100 ml @ 100 mls/hr Q24H IV 05/30/17 14:00 05/31/17 14:22 (Tylenol Supp) 650 mg Q6H PRN RECTAL 05/30/17 13:15 05/30/17 14:06 Bumetanide 100 ml @ 4 mls/hr Q24H IV 05/31/17 11:57 05/31/17 13:11 (Pepcid Inj) 10 mg Q12HR IV PUSH 05/31/17 21:00 (Ofirmev 1000 Mg/ 100 ml Inj) 1,000 mg Q6H PRN IV 05/31/17 16:30 05/31/17 16:51 (NovoLOG SUPPLEMENTAL SCALE) 1 Q4HR SQ 05/31/17 20:00 Family History Noncontributory Social History Denies smoking or alcohol use Physical Exam Vital Signs Vital Signs Date Time Temp Pulse Resp B/P (MAP) Pulse Ox O2 Delivery O2 Flow Rate FiO2 05/31/17 14:00 110 05/31/17 12:54 96 High Flow Nasal Cannula 30.00 60 05/31/17 12:00 103.1 114 28 103/51 (68) 94 05/31/17 12:00 114 05/31/17 12:00 Nasal Cannula 40.00 60 05/31/17 10:00 111 05/31/17 09:23 92 High Flow Nasal Cannula 40.00 60 05/31/17 09:00 110 30 109/51 (70) 92 05/31/17 08:00 Nasal Cannula 40.00 60 05/31/17 08:00 99.6 111 30 109/54 (72) 92 05/31/17 08:00 111 05/31/17 07:01 110 28 112/50 (70) 90 05/31/17 06:00 111 05/31/17 04:00 89 Nasal Cannula 05/31/17 04:00 111 05/31/17 04:00 100.5 111 47 125/57 (79) 89 05/31/17 03:35 91 High Flow Nasal Cannula 50 05/31/17 02:00 109 05/31/17 00:24 92 High Flow Nasal Cannula 50 05/31/17 00:00 99.9 104 40 99/52 (68) 89 05/31/17 00:00 89 Nasal Cannula 05/31/17 00:00 104 05/30/17 22:00 104 05/30/17 20:30 93 High Flow Nasal Cannula 50 05/30/17 20:00 95 Simple Mask 8.00 05/30/17 20:00 103 05/30/17 20:00 99.1 103 38 104/50 (68) 95 05/30/17 19:56 91 Simple Mask 9.00 Physical Exam GENERAL: Well-nourished, morbidly obese well-developed patient. SKIN: Warm and dry. HEAD: Normocephalic. EYES: No scleral icterus. No injection or drainage. NECK: Supple, trachea midline. No JVD or lymphadenopathy. CARDIOVASCULAR: Tachycardic RESPIRATORY: Breath sounds diminished at bases GASTROINTESTINAL: Abdomen soft, non-tender, nondistended. EXTREMITIES: No cyanosis, 1+ edema. NEUROLOGICAL: Lethargic on oxygen confused Laboratory Laboratory Tests Test 05/30/17 19:23 05/30/17 20:51 05/30/17 21:25 05/31/17 06:48 Blood Gas Puncture Site RT RADIAL RD RD Blood Gas Patient Temperature 98.6 98.6 98.6 Blood Gas HCO3 29 29 27 Blood Gas Base Excess 3.5 3.9 3.2 Blood Gas Oxygen Saturation 91 87 90 Arterial Blood pH 7.37 7.38 7.42 Arterial Blood Partial Pressure CO2 51 49 43 Arterial Blood Partial Pressure O2 75 62 65 Arterial Blood Oxygen Content 14.2 14.5 15.8 Arterial Blood Carboxyhemoglobin 1.2 1.2 1.1 Arterial Blood Methemoglobin 1.3 1.1 1.1 Blood Gas Hemoglobin 11.0 11.9 12.5 Oxygen Delivery Device MASK HIGH FLOW HIGH FLOW Blood Gas Liter Flow 7 20 Blood Gas Inspired Oxygen 50 30 55 Ammonia 32 Test 05/31/17 11:42 05/31/17 15:11 White Blood Count 13.7 Red Blood Count 3.78 Hemoglobin 10.9 Hematocrit 34.8 Mean Corpuscular Volume 92.0 Mean Corpuscular Hemoglobin 28.9 Mean Corpuscular Hemoglobin Concent 31.4 Red Cell Distribution Width 16.2 Platelet Count 167 Mean Platelet Volume 10.4 Neutrophils (%) (Auto) 69.5 Lymphocytes (%) (Auto) 17.4 Monocytes (%) (Auto) 11.4 Eosinophils (%) (Auto) 0.4 Basophils (%) (Auto) 1.3 Neutrophils # (Auto) 9.5 Lymphocytes # (Auto) 2.4 Monocytes # (Auto) 1.6 Eosinophils # (Auto) 0.1 Basophils # (Auto) 0.2 CBC Comment AUTO DIFF Differential Total Cells Counted 100 Neutrophils % (Manual) 64 Band Neutrophils % 16 Lymphocytes % 6 Monocytes % 12 Neutrophils # (Manual) 11.2 Myelocytes 2 Differential Comment FINAL DIFF MANUAL Platelet Estimate NORMAL Platelet Morphology Comment NORMAL Stomatocytes 1+ Blood Urea Nitrogen 21 Creatinine 2.13 Random Glucose 315 Calcium Level 8.6 Phosphorus Level 2.0 Magnesium Level 1.6 Sodium Level 139 Potassium Level 4.8 Chloride Level 99 Carbon Dioxide Level 28.3 Anion Gap 12 Estimat Glomerular Filtration Rate 23 Blood Gas Puncture Site LT RADIAL Blood Gas Patient Temperature 98.6 Blood Gas HCO3 27 Blood Gas Base Excess 2.5 Blood Gas Oxygen Saturation 91 Arterial Blood pH 7.43 Arterial Blood Partial Pressure CO2 41 Arterial Blood Partial Pressure O2 70 Arterial Blood Oxygen Content 15.4 Arterial Blood Carboxyhemoglobin 1.0 Arterial Blood Methemoglobin 1.2 Blood Gas Hemoglobin 12.0 Oxygen Delivery Device NASAL CANNULA Blood Gas Liter Flow 30 Blood Gas Inspired Oxygen 50 Date/Time Source Procedure Growth Status 05/30/17 17:02 Blood Peripheral Aerobic Blood Culture - Preliminary NO GROWTH IN 1 DAY Resulted 05/30/17 17:02 Blood Peripheral Anaerobic Blood Culture - Preliminary NO GROWTH IN 1 DAY Resulted 05/25/17 17:56 Cerebral Spinal Fluid Lumbar Puncture Fungal Smear - Final NO FUNGAL ELEMENTS SEEN. Resulted 05/25/17 17:56 Cerebral Spinal Fluid Lumbar Puncture Fungal Culture Pending Resulted 05/30/17 13:30 Urine Catheterized Urine Urine Culture - Preliminary NO GROWTH IN 24 HOURS. Resulted Result Diagram: 05/31/17 1142 05/31/17 1142 Imaging Last Impressions Chest X-Ray 05/31/17 0000 Signed Impressions: Service Date/Time: Wednesday, May 31, 2017 09:03 - CONCLUSION: 1. Cardiomegaly. 2. No acute focal pulmonary infiltrate or pulmonary vascular congestion. Nikita Damon MD Lower Extremity Ultrasound 05/29/17 0000 Signed Impressions: Service Date/Time: Monday, May 29, 2017 13:10 - CONCLUSION: 1. No evidence of deep venous thrombosis. Monty Gross MD Tumor Localization 05/26/17 0000 Signed Impressions: Service Date/Time: Friday, May 26, 2017 13:36 - CONCLUSION: No abnormal uptake identified to suggest infection. Nikita Damon MD Lumbar Spine MRI 05/25/17 0000 Signed Impressions: Service Date/Time: April 19:02 - CONCLUSION: 1. Atypical signal changes of the L3/L4 disc and with associated abnormal signal in the adjacent vertebral bodies. These findings are nonspecific but discitis and osteomyelitis should be included in the differential. Mild to moderate spinal stenosis at this level. I don't see an epidural abscess. 2. Otherwise typical appearing multilevel degenerative changes as above. There is mild to moderate right and mild left foraminal stenosis at L4/L5. Generally no or minimal degrees of foraminal encroachment elsewhere. Santana Eric MD Brain MRI 05/25/17 0000 Signed Impressions: Service Date/Time: April 19:02 - CONCLUSION: No acute intracranial findings. Santana Arzate MD Liver Ultrasound 05/21/17 0000 Signed Impressions: Service Date/Time: Sunday, May 21, 2017 10:32 - CONCLUSION: 1. Hepatic steatosis. 2. Gallstones 3. Limited evaluation of the right kidney. Santana Lamar MD Head CT 05/20/17 192 Signed Impressions: Service Date/Time: Saturday, May 20, 2017 19:55 - CONCLUSION: 1. No acute findings. Retention cyst right maxillary sinus. Jakob Scruggs MD Assessment and Plan Problem List: (1) Acute renal failure ICD Codes: N17.9 - Acute kidney failure, unspecified Status: Acute Plan: Patient has septic shock and low blood pressure which can cause acute tubular necrosis I will order a kidney ultrasound If he can obtain urine then we will send it for urine sodium and creatinine and eosinophil Ordered Diamox 500 mg IV in addition to Bumex If she failed to respond to diuretics consider dialysis Continue supportive care Avoid nephrotoxins (2) Septic shock ICD Codes: A41.9 - Sepsis, unspecified organism; R65.21 - Severe sepsis with septic shock Plan: Patient is on broad-spectrum antibiotics. Infectious disease is following the patient she's getting Zyvox, ceftriaxone, Levaquin, metronidazole (3) Bacteremia due to group B Streptococcus ICD Codes: R78.81 - Bacteremia Plan: She does have streptococcal infection (4) SIRS (systemic inflammatory response syndrome) ICD Codes: R65.10 - Systemic inflammatory response syndrome (SIRS) of non- infectious origin without acute organ dysfunction Status: Acute Plan: Critical care is following (5) Acute hypercapnic respiratory failure ICD Codes: J96.02 - Acute respiratory failure with hypercapnia Plan: On O2 (6) Diabetes ICD Codes: E11.9 - Type 2 diabetes mellitus without complications Status: Acute Plan: Continue to monitor blood glucose Problem Qualifiers (1) Acute renal failure: Qualified Codes: N17.9 - Acute kidney failure, unspecified (2) Diabetes: Roberto Cabrera MD May 31, 2017 18:55
[2017-05-31 19:29] LABS: BICARBONATE 25.3 MEQ/L (21.0-32.0)
[2017-05-31 19:59] LABS: CKMB 4.3 NG/ML (0.5-3.6)
[2017-05-31] MEDS: INSULIN ASPART SUPPLEMENTAL SCALE SQ SCH (20:00)
--- NOTE | 2017-05-31 20:15 | HHI.PR ---
Subjective Remarks 66 YOObese WF with Hypercapnoea, Cellulitis, Bactremia Fever 103 F Back pain better On High flow 02 Encephalopathic Objective Vital Signs Vital Signs Date Time Temp Pulse Resp B/P (MAP) Pulse Ox O2 Delivery O2 Flow Rate FiO2 05/31/17 18:00 108 05/31/17 16:00 102.8 110 35 107/52 (70) 90 05/31/17 16:00 110 05/31/17 16:00 Nasal Cannula 30.00 50 05/31/17 14:00 110 05/31/17 12:54 96 High Flow Nasal Cannula 30.00 60 05/31/17 12:00 103.1 114 28 103/51 (68) 94 05/31/17 12:00 114 05/31/17 12:00 Nasal Cannula 40.00 60 05/31/17 10:00 111 05/31/17 09:23 92 High Flow Nasal Cannula 40.00 60 05/31/17 09:00 110 30 109/51 (70) 92 05/31/17 08:00 Nasal Cannula 40.00 60 05/31/17 08:00 99.6 111 30 109/54 (72) 92 05/31/17 08:00 111 05/31/17 07:01 110 28 112/50 (70) 90 05/31/17 06:00 111 05/31/17 04:00 89 Nasal Cannula 05/31/17 04:00 111 05/31/17 04:00 100.5 111 47 125/57 (79) 89 05/31/17 03:35 91 High Flow Nasal Cannula 50 05/31/17 02:00 109 05/31/17 00:24 92 High Flow Nasal Cannula 50 05/31/17 00:00 99.9 104 40 99/52 (68) 89 05/31/17 00:00 89 Nasal Cannula 05/31/17 00:00 104 05/30/17 22:00 104 05/30/17 20:30 93 High Flow Nasal Cannula 50 I/O 05/30/17 05/30/17 05/30/17 05/31/17 05/31/17 05/31/17 07:00 15:00 23:00 07:00 15:00 23:00 Intake Total 657 ml 1000 ml 912 ml 100 ml 2176 ml Output Total 700 ml 400 ml 375 ml 100 ml Balance -43 ml 1000 ml 512 ml -275 ml 2176 ml -100 ml Intake Oral 100 ml 100 ml IV Total 557 ml 1000 ml 812 ml 100 ml 2176 ml Output Urine Total 700 ml 400 ml 375 ml 100 ml # Bowel Movements 0 0 Result Diagram: 05/31/17 1142 05/31/17 1840 Objective Remarks GENERAL: Morbidly obese WF, mild sob SKIN: Warm and dry. HEAD: Normocephalic. EYES: No scleral icterus. No injection or drainage. NECK: Supple, trachea midline. No JVD or lymphadenopathy. CARDIOVASCULAR: Regular rate and rhythm without murmurs, gallops, or rubs. RESPIRATORY: Breath sounds equal bilaterally. No accessory muscle use. GASTROINTESTINAL: Abdomen soft, non-tender, nondistended. MUSCULOSKELETAL: No cyanosis, or edema. has swelling and redness of legs BACK: Nontender without obvious deformity. No CVA tenderness. A/P Assessment and Plan Hypercapnoic Resp Insuff CHE or Obesity Hypoventilation synd Cellulitis legs Bactremia back pain Sepsis Encephalopathy PLAN: High flow 02 Aerosol nebs Wean 02 to keep sat 88-92% Abx per ID Cont Dilantin Bumex Dima Sousa MD May 31, 2017 20:15
[2017-05-31 20:46] LABS: BLOOD GAS BASE EXCESS 1.1 mmol/L (-2-2); BLOOD GAS CARBOXYHEMOGLOBIN 0.9 % (0-4); BLOOD GAS HCO3 25 mmol/L (22-26); BLOOD GAS O2 HGB SATURATION 91 % (90-100); BLOOD GAS OXYGEN CONTENT 14.8 Vol % (12.0-20.0); BLOOD GAS PCO2 41 mmHg (38-42); BLOOD GAS PO2 68 mmHg (61-120); BLOOD GAS TOTAL HGB 11.6 G/DL (12.0-16.0); CRITICAL VALUE NO; DRAW SITE RT BRACHIAL; FIO2 50 %; LITER FLOW 30 L/M; NUMBER OF ARTERIAL PUNCTURES 1; OXYGEN DEVICE NASAL CANNULA; STAT NO; TEMP CORR TO 98.6
[2017-05-31] MEDS ORDERED: levETIRAcetam 1000 MG INJ 100 ML IV ONE (21:00)
--- NOTE | 2017-05-31 21:31 | RADRPT ---
EXAM DATE/TIME: 05/31/2017 20:47 [facility] COMPARISON: No previous studies available for comparison. INDICATIONS : Increased lab values. MEDICAL HISTORY : Hypertension. Dyspnea. Diabetes. Chronic lower back pain. SURGICAL HISTORY : section. ENCOUNTER: Initial ACUITY: 1 day PAIN SCORE: Nonresponsive. LOCATION: Bilateral flank MEASUREMENTS: RIGHT KIDNEY: 9.7 x 4.6 x 4.4 cm LEFT KIDNEY: 12.7 x 5.5 x 6.3 cm FINDINGS: Suboptimal visualization secondary to the patient's large body habitus. RIGHT KIDNEY: Renal cortex is normal in thickness and echotexture. No hydronephrosis, stone, or solid mass. There is apparent cyst in the lower pole measuring 3.9 x 3.5 cm. LEFT KIDNEY: Renal cortex is normal in thickness and echotexture. No hydronephrosis, stone, or mass. BLADDER: The bladder could not be visualized. CONCLUSION: 1. Suboptimal exam with visualization. 2. No evidence of hydronephrosis. 3. Cyst extending off right kidney. Austin Orellana MD on May 31, 2017 at 21:29 Board Certified Radiologist. This report was verified electronically.
[2017-05-31] MEDS ORDERED: ETOMIDATE 40 MG/20 ML VIAL ONE (22:20)
[2017-05-31] MEDS ORDERED: SUCCINYLCHOLINE CHLORIDE 200 MG/10 ML VIAL ONE (22:22)
--- NOTE | 2017-05-31 22:40 | PD.PROCEDR ---
Procedure Note Procedure Endotracheal Intubation A time-out was completed verifying correct patient, procedure, site, positioning , and special equipment if applicable. The patient was placed in a flat position. Sedation was obtained using Etomidate 20mg. The patient was easily ventilated using an ambu bag. The [employer]/ MAC 4 BLADE was used and inserted into the oropharynx at which time there was a Grade 1 view of the vocal cords. A 8-wolof endotracheal tube was inserted and visualized going through the vocal cords. The stylette was removed. Colorimetric change was visualized on the CO2 meter. Breath sounds were heard in both lung hogue equally. The endotracheal tube was placed at 23 cm, measured at the teeth. A chest x-ray was ordered to assess for pneumothorax and verify endotrachealtube placement. Estimated Blood Loss: 0 The patient tolerated the procedure well and there were no complications. Francisco Dia MD May 31, 2017 22:40
--- NOTE | 2017-05-31 23:37 | PD.PROCEDR ---
Procedure Note Procedure A time-out was completed verifying correct patient, procedure, site, positioning , and special equipment if applicable. The patient was placed in a dependent position appropriate for central line placement based on the vein to be cannulated. The patients left neck was prepped and draped in sterile fashion. 1 % Lidocaine was used to anesthetize the surrounding skin area. A triple lumen 9 Ethiop[place] Cordis catheter was introduced into the the internal jugular vein using the Seldinger technique and under ultrasound guidance. The catheter was threaded smoothly over the guide wire and appropriate blood return was obtained. Each lumen of the catheter was evacuated of air and flushed with sterile saline. The catheter was then sutured in place to the skin and a sterile dressing applied. Perfusion to the extremity distal to the point of catheter insertion was checked and found to be adequate. Estimated Blood Loss: 1ml The patient tolerated the procedure well and there were no complications. Francisco Dia MD May 31, 2017 23:37
[2017-06-01] VITALS (21 sets, daily range): BP systolic 83–143; BP diastolic 38–80; PULSE 86–111; RESP 16–42; TEMP 99.3–103; O2SAT 95–100
[2017-06-01] MEDS ORDERED: levETIRAcetam 1000 MG INJ 100 ML IV SCH
--- NOTE | 2017-06-01 | RADRPT ---
EXAM DATE/TIME: 05/31/2017 23:33 [facility] COMPARISON: CHEST SINGLE AP, May 31, 2017, 9:03. INDICATIONS : Central line placement. MEDICAL HISTORY : Hypertension. Diabetes mellitus type 2. SURGICAL HISTORY : section. ENCOUNTER: Subsequent ACUITY: 1 week PAIN SCORE: Non-responsive. LOCATION: Bilateral chest FINDINGS: Endotracheal tube tip is present 2 cm above the oliver. Left neck central line descends SVC. There is no evidence of pneumothorax or complication of placement. There is mild infiltrate in the lung bases . Slight central vascular congestion and cardiomegaly which is grossly stable. CONCLUSION: Satisfactory central line position and ET tube positioning. No complication. Santana Arzate MD on May 31, 2017 at 23:58 Board Certified Radiologist. This report was verified electronically.
[2017-06-01 00:19] LABS: BLOOD GAS BASE EXCESS -2.8 mmol/L (-2-2); BLOOD GAS CARBOXYHEMOGLOBIN 0.6 % (0-4); BLOOD GAS HCO3 22 mmol/L (22-26); BLOOD GAS METHEMOGLOBIN 1.1 % (0-2); BLOOD GAS O2 HGB SATURATION 93 % (90-100); BLOOD GAS OXYGEN CONTENT 14.6 Vol % (12.0-20.0); BLOOD GAS PCO2 43 mmHg (38-42); BLOOD GAS PO2 83 mmHg (61-120); BLOOD GAS TOTAL HGB 11.1 G/DL (12.0-16.0); TEMP CORR TO 98.6
[2017-06-01 00:20] LABS: CRITICAL VALUE NO; DRAW SITE LT BRACHIAL; FIO2 60 %; NUMBER OF ARTERIAL PUNCTURES 1; OXYGEN DEVICE VENTILATOR; STAT YES; VENT SETTINGS 16/500/IT1.0/5PEEP
[2017-06-01] MEDS: MIDAZOLAM 100 MG/100 ML INJ 100 ML IV PRN (00:31)
[2017-06-01] MEDS: levETIRAcetam 500 MG/NS 100 ML IV SCH ×4 (01:37→11:55)
[2017-06-01] MEDS: LINEZOLID 600 MG PREMIX 300 ML IV SCH ×2 (01:37→13:18)
[2017-06-01] MEDS: CHLORHEXIDINE GLUCONATE 2 % 1 PACK (2 CLOTHS) TOP SCH (01:46)
[2017-06-01] MEDS: SODIUM CHLOR 0.9% 1000 ML INJ 1,000 ML IV SCH ×4 (02:24→22:54)
[2017-06-01] MEDS ORDERED: NOREPINEPHRINE INJ 4 MG in SODIUM CHLOR 0.9% 250 ML INJ 246 ML IV PRN (03:30)
[2017-06-01] MEDS: INSULIN ASPART SUPPLEMENTAL SCALE SQ SCH ×3 (04:00→08:00)
[2017-06-01] MEDS: cefTRIAXone INJ 2,000 MG in SODIUM CHLORIDE 0.9% INJ 100 ML IV SCH ×2 (04:58→15:36)
[2017-06-01] MEDS: PHENYTOIN INJ 100 MG/2 ML VIAL IV SCH ×3 (04:59→22:55)
[2017-06-01] MEDS: HEPARIN SODIUM - SQ 10,000 UNITS/ML VIAL SQ SCH ×3 (04:59→22:55)
[2017-06-01] MEDS: metroNIDAZOLE 500 MG INJ 100 ML IV SCH ×2 (04:59→22:54)
[2017-06-01] MEDS: VASOPRESSIN INJ 40 UNITS in DEXTROSE 5% IN WATER 100ML INJ 98 ML IV SCH ×4 (05:21→13:20)
[2017-06-01] MEDS ORDERED: VASOPRESSIN 20 UNITS/ML VIAL (IVTITR) ONE ×6 (05:23→18:35)
--- NOTE | 2017-06-01 06:48 | MG ---
cc: SHERIDAN CHILD MD Lab No: [id number]____ Date: 05/31/2017 Age: 71 Sex: F Race: ___ DATE OF [address] Alvarenga MEDICAL HISTORY 1. Hypertension 2. hyperlipidemia 3. diabetes 4. chronic back pain 5. Dyspnea 6. Morbid obesity REASON FOR ADMISSION Admitted for confusion and lethargy. MEDICATIONS 1. Lasix 2. Metronidazole 3. Tylenol 4. Magnesium 5. Dilaudid 6. Dilantin 7. Ceftriaxone 8. Lisinopril 9. Insulin 10. Heparin DESCRIPTION This is a follow up EEG. Previous EEG done 05/28/2017. There is generalized background slowing with polymorphic delta and theta activity. There are sharp generalized sharp like activity throughout the recording. There are intermittent triphasic waves. Photic stimulation did not elicit a driving response. Hyperventilation was not done. There were no electrographic seizures /ictal activity noted. INTERPRETATION: This is an abnormal awake and drowsy EEG. The generalized background slowing may indicate an encephalopathic pattern that may be related to metabolic, medication effect or hypoxic etiology.There are sharp like high amplitude discharges that may be epileptogenic in nature. Triphasic waves may indicate a metabolic encephalopathy. Absence of electrographic seizures does not rule out a diagnosis epilepsy. There was no electrographic seizure activity/ictal activity during the recording. Clinical correlation is recommended. MD GALINDO Cortez/DJJose Luis /9:04 PM /6:40 AM LISA
[2017-06-01 08:32] LABS: AUTOMATED NEUTROPHIL # 12.7 TH/MM3 (1.8-7.7); BASOPHIL # 0.3 TH/MM3 (0-0.2); BASOPHIL % 1.4 % (0.0-2.0); EOSINOPHIL # 0.2 TH/MM3 (0-0.4); EOSINOPHIL % 0.8 % (0.0-4.0); HEMATOCRIT 34.8 % (35.0-46.0); LYMPH % 21.5 % (9.0-44.0); LYMPHOCYTE # 4.1 TH/MM3 (1.0-4.8); MEAN CELL VOLUME 92.9 FL (80.0-100.0); MEAN CORPUSCULAR HEMOGLOBIN 28.9 PG (27.0-34.0); MEAN CORPUSCULAR HGB CONC 31.1 % (32.0-36.0); MONO % 9.8 % (0.0-8.0); NEUT % 66.5 % (16.0-70.0); PLATELET COUNT 182 TH/MM3 (150-450); RED BLOOD COUNT 3.74 MIL/MM3 (4.00-5.30); RED CELL DISTRIBUTION WIDTH 16.3 % (11.6-17.2); WHITE BLOOD COUNT 19.1 TH/MM3 (4.0-11.0)
[2017-06-01 08:40] LABS: HEMO FLAGS AUTO DIFF
[2017-06-01] MEDS ORDERED: DIATRIZOATE MEGLUM/DIATRIZOATE SOD 9 ML CUP PO ONE (08:45)
[2017-06-01] MEDS: NYSTATIN 100,000 U/GM PWD 15 GM BTL TOPICAL SCH ×2 (09:00→21:00)
[2017-06-01] MEDS: CEFTOLOZANE-TAZOBACTAM INJ 375 MG in SODIUM CHLORIDE 0.9% INJ 100 ML IV SCH ×2 (09:00→17:16)
[2017-06-01] MEDS ORDERED: CEFTOLOZANE-TAZOBACTAM INJ 375 MG in SODIUM CHLORIDE 0.9% INJ 100 ML IV SCH (09:00)
[2017-06-01 09:52] LABS: BANDS 10 % (0-6); MYELOCYTES 3 % (0-0); PLATELET ESTIMATE SMEAR NORMAL (NORMAL); PLATELET MORPHOLOGY ENLARGED (NORMAL); POLYS (SEG NEUTROPHILS) 49 % (16-70); PROMYELOCYTES 1 % (0-0); SCAN/DIFF FINAL DIFF MANUAL; TOXIC GRANULATION 1+ (NORMAL); TOXIC VACUOLATION PRESENT (NONE SEEN); WBC DIFF SAMPLE 100
[2017-06-01] MEDS: INSULIN DETEMIR 100 UNITS/ML VIAL SQ SCH (10:11)
[2017-06-01] MEDS: FAMOTIDINE 20 MG/2 ML VIAL IV PUSH SCH ×2 (10:12→22:55)
[2017-06-01] MEDS: DOCUSATE SODIUM 50 MG/SENNA 8.6 MG TAB PO SCH ×2 (10:12→22:55)
[2017-06-01] MEDS: MICAFUNGIN INJ 150 MG in SODIUM CHLORIDE 0.9% INJ 100 ML IV SCH (10:17)
[2017-06-01] MEDS: SODIUM CHLORIDE 0.9% FLUSH 10 ML FLUSH IV FLUSH SCH ×2 (10:18→22:56)
[2017-06-01 11:10] LABS: CSF CRYPTO AG SOURCE CSF
[2017-06-01 11:22] LABS: ALT (GPT) 69 U/L (10-53); ANION GAP 15 MEQ/L (5-15); AST (GOT) 233 U/L (15-37); BICARBONATE 19.6 MEQ/L (21.0-32.0); BLOOD UREA NITROGEN 24 MG/DL (7-18); CHLORIDE 102 MEQ/L (98-107); GLOMERULAR FILTRATION RATE 14 ML/MIN (>89); POTASSIUM 5.3 MEQ/L (3.5-5.1); SODIUM (NA) 137 MEQ/L (136-145)
[2017-06-01] MEDS ORDERED: LACTATED RINGER'S 1000 ML INJ 1,000 ML IV ONE (11:30)
--- NOTE | 2017-06-01 11:31 | HHI.NPPN ---
Subjective History of Present Illness 66 year old female with Sepsis, possible Meningitis/Discitis, ARF Additional Remarks intubated Objective Data Data 06/01/17 06/02/17 19:00 07:00 Output Total 600 ml Balance -600 ml Output Urine Total 600 ml Vital Signs Date Time Temp Pulse Resp B/P (MAP) Pulse Ox O2 Delivery O2 Flow Rate FiO2 06/01/17 11:12 100 60 06/01/17 10:00 98 06/01/17 08:00 95 Mechanical Ventilator 60 06/01/17 08:00 104 06/01/17 08:00 102.4 104 24 140/78 (98) 95 91/38 (55) 06/01/17 07:36 95 60 06/01/17 07:00 107 90/38 06/01/17 07:00 107 90/38 06/01/17 06:00 104 06/01/17 05:44 103 92/39 06/01/17 05:36 104 79/36 06/01/17 05:36 104 80/37 06/01/17 05:21 103 83/36 06/01/17 04:12 95 60 06/01/17 04:00 95 Mechanical Ventilator 60 Nasal Cannula 06/01/17 04:00 103.0 108 29 95/43 (60) 96 99/45 (63) 06/01/17 04:00 108 06/01/17 02:00 111 06/01/17 01:01 100 60 06/01/17 00:00 95 Mechanical Ventilator 60 Nasal Cannula 06/01/17 00:00 106 06/01/17 00:00 99.9 106 42 138/79 (98) 95 05/31/17 22:45 95 60 05/31/17 22:00 108 05/31/17 20:29 93 High Flow Nasal Cannula 30.00 50 05/31/17 20:00 Nasal Cannula 30.00 50 05/31/17 20:00 100.0 109 46 104/52 (69) 85 05/31/17 20:00 109 05/31/17 18:00 108 05/31/17 16:00 102.8 110 35 107/52 (70) 90 05/31/17 16:00 110 05/31/17 16:00 Nasal Cannula 30.00 50 05/31/17 14:00 110 05/31/17 12:54 96 High Flow Nasal Cannula 30.00 60 05/31/17 12:00 103.1 114 28 103/51 (68) 94 05/31/17 12:00 114 05/31/17 12:00 Nasal Cannula 40.00 60 -: 06/01/17 0807 06/01/17 0807 Microbiology 06/01/17 Gram Stain - Final, Resulted 06/01/17 Sputum Culture, Resulted Pending Physical Exam General Appearance: Well Developed, Obese Neck Neck Exam: Neck Supple Pulmonary Resp Exam: Decreased Bases Cardiology CV Exam: Tachycardia Gastrointestinal/Abdomen GI Exam: Soft, Non-Tender, Bowel Sounds Present Extremeties Extremities Exam: Moderate Edema Assessment/Plan Problem List: (1) Acute renal failure ICD Codes: N17.9 - Acute kidney failure, unspecified Status: Acute Plan: Patient has septic shock and low blood pressure which can cause acute tubular necrosis I reviewed kidney ultrasound cyst but no hydro Urine lytes consistent with ATN intubated CPK high Rhabdo possible seizure? On Diamox 500 mg IV UOP 600 cc off Bumex d/w Dr. Portillo ID changed antibiotics Continue supportive care Avoid nephrotoxins (2) Septic shock ICD Codes: A41.9 - Sepsis, unspecified organism; R65.21 - Severe sepsis with septic shock Plan: Patient is on broad-spectrum antibiotics. Infectious disease is following the patient she's getting Zyvox, Ceftolozane, metronidazole,Micafungin (3) Bacteremia due to group B Streptococcus ICD Codes: R78.81 - Bacteremia Plan: She does have streptococcal infection (4) SIRS (systemic inflammatory response syndrome) ICD Codes: R65.10 - Systemic inflammatory response syndrome (SIRS) of non- infectious origin without acute organ dysfunction Status: Acute Plan: Critical care is following (5) Acute hypercapnic respiratory failure ICD Codes: J96.02 - Acute respiratory failure with hypercapnia Plan: On O2 (6) Diabetes ICD Codes: E11.9 - Type 2 diabetes mellitus without complications Status: Acute Plan: Continue to monitor blood glucose Problem Qualifiers (1) Acute renal failure: Qualified Codes: N17.9 - Acute kidney failure, unspecified (2) Diabetes: Roberto Cabrera MD Jun 01, 2017 11:31
[2017-06-01 11:35] LABS: ALKALINE PHOSPHATASE 80 U/L (45-117); CREATINE KINASE 3152 U/L (26-192); TOTAL BILIRUBIN ADULT 0.3 MG/DL (0.2-1.0)
[2017-06-01] MEDS ORDERED: DEXTROSE 50% IN WATER 50 ML VIAL(D50) IV PUSH PRN (11:45)
[2017-06-01] MEDS ORDERED: MISC INFORMATION OTHER ONE (11:45)
[2017-06-01 12:00] LABS: CKMB 4.5 NG/ML (0.5-3.6)
--- NOTE | 2017-06-01 12:06 | HHI.IDPN ---
Subjective Subjective Remarks is a 66-year-old female presents confused and lethargic. Patient reportedly was recently seen today at an urgent care and received an injection for low back pain. Patient here denies headaches, chest pain or shortness of breath, abdominal pain or extremity pain. Patient does complain of low back pain. at bedside states that they're visiting from out of state for the past 3 months and will be returning back to their home state in a week. reports patient has chronic low back pain but this exacerbated over the last 24 hours starting yesterday morning. Patient was seen earlier today by her chiropractor for an adjustment and then was referred to an urgent care. Patient reportedly had a fever at the chiropractor's office and felt cold and clammy. At the urgent care patient was evaluated and reportedly had an injection of a nonsteroidal medication as she is diabetic and he did not want to give her a steroid injection. Patient went home about 1:00 PM she was drowsy so sat down in a chair and fell asleep according to the . He tried to awaken her at 4:30 and noticed that she was confusional and lethargic. He attempted to continue to awaken her over the next 2-3 hours and because she was not improving decided finally to call EMS to transport her to the emergency room. Patient and spouse denied any recent injury or fall. Patient was ambulatory this morning but this evening has difficulty elevating her lower extremities as well as she was generally extremely weak. Intubated overnight. Temps overnight 103 F. On Levophed and Vasopressin overnight. No rash No diarrhea Intubated FIO2 60% and PEEP 5. UO 600 cc now. Was on Bumex gtt. Antibiotics I attest I reviewed, obtained or updated pts home meds and current meds for name , dose, duration and frequency of medications. Reported Meds & Active Scripts Active Walker with Front Wheels (Device) 1 Mis Mis Ea .ROUTE DIRECTED Reported Novolog Mix 70-30 Inj (Insulin Aspart Prota 70%/Aspart 30%) 1,000 Unit/10 Ml Vial Unknown Dose SQ BIDAC Glimepiride 1 Mg Tab Unknown Dose PO DAILY Take with breakfast or first main meal Lisinopril-Hctz 10-12.5 Mg Tab Unknown Dose PO DAILY Metformin (Metformin HCl) 1,000 Mg Tab Unknown Dose PO BIDPC Current Medications Medications (Trade) Dose Ordered Sig/Erasmo Route Start Time Stop Time Status Last Admin (Pepcid Inj) 10 mg Q12HR IV PUSH 05/21/17 09:00 05/24/17 09:38 (Heparin Inj) 5,000 units Q8H SQ 05/20/17 22:00 05/24/17 12:28 Miscellaneous Information 1 Q361D XX 05/20/17 22:30 (Chlorhexidine 2% Cloth) 3 pack Taper DAILY@04 TOP 05/21/17 04:00 05/17/18 03:59 05/23/17 04:00 (Chlorhexidine 2% Cloth) 3 pack UNSCH PRN TOP 05/20/17 22:30 (Tylenol) 650 mg Q6H PRN PO 05/21/17 01:30 (Duoneb Neb) 1 ampule Q2HR NEB PRN NEB 05/21/17 05:45 05/24/17 16:41 (Levemir Inj) 10 units Q12HR SQ 05/22/17 09:00 05/24/17 09:36 (D50w (Vial) Inj) 50 ml UNSCH PRN IV PUSH 05/22/17 07:30 (Glucagon Inj) 1 mg UNSCH PRN OTHER 05/22/17 07:30 (NovoLIN R SUPPLEMENTAL SCALE) 1 Q4H SQ 05/22/17 08:00 05/24/17 17:28 (Duoneb Neb) 1 ampule BID NEB NEB 05/22/17 20:00 05/24/17 07:52 (Percocet 10-325 Mg) 1 tab Q4HR PRN PO 05/23/17 09:45 05/24/17 17:31 (Morphine Inj) 4 mg Q3H PRN IV PUSH 05/23/17 09:45 (Prinivil) 10 mg DAILY PO 05/23/17 10:00 05/24/17 09:41 (Apresoline Inj) 10 mg Q6H PRN IV PUSH 05/23/17 10:00 Ceftriaxone Sodium 2000 mg/ Sodium Chloride 100 ml @ 200 mls/hr Q24H IV 05/25/17 06:00 (NS Flush) 2 ml UNSCH PRN IV FLUSH 05/24/17 12:15 (NS Flush) 2 ml BID IV FLUSH 05/24/17 21:00 (Narcan Inj) 0.4 mg UNSCH PRN IV PUSH 05/24/17 12:15 (May-Colace) 1 tab BID PO 05/24/17 21:00 (Milk Of Magnesia Liq) 30 ml Q12H PRN PO 05/24/17 12:15 05/24/17 13:45 (Senokot) 17.2 mg Q12H PRN PO 05/24/17 12:15 (Dulcolax Supp) 10 mg DAILY PRN RECTAL 05/24/17 12:15 (Lactulose Liq) 30 ml DAILY PRN PO 05/24/17 12:15 (Catapres) 0.1 mg Q4H PRN PO 05/24/17 12:30 05/24/17 13:43 (Lasix Inj) 40 mg NOW ONCE IV PUSH 05/24/17 18:45 05/24/17 18:46 Lines Line sites with no e.o infection Past Medical History Diabetes Dyslipidemia Hypertension Chronic back pain sees a chiropracter. Chronic lower extremity swelling. Never had an ECHO before per pt and spouse. ? Sleep apnea. Allergies: Coded Allergies: No Known Allergies (Unverified , 05/20/17) Objective . Vital Signs Date Time Temp Pulse Resp B/P (MAP) Pulse Ox O2 Delivery O2 Flow Rate FiO2 06/01/17 11:12 100 60 06/01/17 10:00 98 06/01/17 08:00 95 Mechanical Ventilator 60 06/01/17 08:00 104 06/01/17 08:00 102.4 104 24 140/78 (98) 95 91/38 (55) 06/01/17 07:36 95 60 06/01/17 07:00 107 90/38 06/01/17 07:00 107 90/38 06/01/17 06:00 104 06/01/17 05:44 103 92/39 06/01/17 05:36 104 79/36 06/01/17 05:36 104 80/37 06/01/17 05:21 103 83/36 06/01/17 04:12 95 60 06/01/17 04:00 95 Mechanical Ventilator 60 Nasal Cannula 06/01/17 04:00 103.0 108 29 95/43 (60) 96 99/45 (63) 06/01/17 04:00 108 11/2/17 02:00 111 06/01/17 01:01 100 60 06/01/17 00:00 95 Mechanical Ventilator 60 Nasal Cannula 06/01/17 00:00 106 06/01/17 00:00 99.9 106 42 138/79 (98) 95 05/31/17 22:45 95 60 05/31/17 22:00 108 05/31/17 20:29 93 High Flow Nasal Cannula 30.00 50 05/31/17 20:00 Nasal Cannula 30.00 50 05/31/17 20:00 100.0 109 46 104/52 (69) 85 05/31/17 20:00 109 05/31/17 18:00 108 05/31/17 16:00 102.8 110 35 107/52 (70) 90 05/31/17 16:00 110 05/31/17 16:00 Nasal Cannula 30.00 50 05/31/17 14:00 110 05/31/17 12:54 96 High Flow Nasal Cannula 30.00 60 05/31/17 12:00 103.1 114 28 103/51 (68) 94 05/31/17 12:00 114 05/31/17 12:00 Nasal Cannula 40.00 60 06/01/17 06/01/17 06/02/17 15:00 23:00 07:00 Intake Total 1200 ml Output Total 600 ml Balance 600 ml IV Total 1200 ml Output Urine Total 600 ml . Laboratory Tests Test 05/31/17 11:42 06/01/17 08:07 White Blood Count 13.7 TH/MM3 19.1 TH/MM3 Red Blood Count 3.78 MIL/MM3 3.74 MIL/MM3 Hemoglobin 10.9 GM/DL 10.8 GM/DL Hematocrit 34.8 % 34.8 % Mean Corpuscular Volume 92.0 FL 92.9 FL Mean Corpuscular Hemoglobin 28.9 PG 28.9 PG Mean Corpuscular Hemoglobin Concent 31.4 % 31.1 % Red Cell Distribution Width 16.2 % 16.3 % Platelet Count 167 TH/MM3 182 TH/MM3 Mean Platelet Volume 10.4 FL 10.8 FL Neutrophils (%) (Auto) 69.5 % 66.5 % Lymphocytes (%) (Auto) 17.4 % 21.5 % Monocytes (%) (Auto) 11.4 % 9.8 % Eosinophils (%) (Auto) 0.4 % 0.8 % Basophils (%) (Auto) 1.3 % 1.4 % Neutrophils # (Auto) 9.5 TH/MM3 12.7 TH/MM3 Lymphocytes # (Auto) 2.4 TH/MM3 4.1 TH/MM3 Monocytes # (Auto) 1.6 TH/MM3 1.9 TH/MM3 Eosinophils # (Auto) 0.1 TH/MM3 0.2 TH/MM3 Basophils # (Auto) 0.2 TH/MM3 0.3 TH/MM3 CBC Comment AUTO DIFF AUTO DIFF Differential Total Cells Counted 100 100 Neutrophils % (Manual) 64 % 49 % Band Neutrophils % 16 % 10 % Lymphocytes % 6 % 26 % Monocytes % 12 % 11 % Neutrophils # (Manual) 11.2 TH/MM3 12.0 TH/MM3 Myelocytes 2 % 3 % Differential Comment FINAL DIFF MANUAL FINAL DIFF MANUAL Platelet Estimate NORMAL NORMAL Platelet Morphology Comment NORMAL ENLARGED Stomatocytes 1+ Promyelocytes 1 % Toxic Granulation 1+ Toxic Vacuolation PRESENT Laboratory Tests Test 05/30/17 15:45 05/30/17 15:55 05/30/17 20:51 05/31/17 11:42 Total Bilirubin 0.4 MG/DL Direct Bilirubin 0.1 MG/DL Indirect Bilirubin 0.3 MG/DL Aspartate Amino Transf (AST/SGOT) 44 U/L Alanine Aminotransferase (ALT/SGPT) 28 U/L Alkaline Phosphatase 65 U/L Total Protein 7.1 GM/DL Albumin 1.8 GM/DL Lactic Acid Level 1.5 mmol/L Ammonia 32 MCMOL/L Blood Urea Nitrogen 21 MG/DL Creatinine 2.13 MG/DL Random Glucose 315 MG/DL Calcium Level 8.6 MG/DL Phosphorus Level 2.0 MG/DL Magnesium Level 1.6 MG/DL Sodium Level 139 MEQ/L Potassium Level 4.8 MEQ/L Chloride Level 99 MEQ/L Carbon Dioxide Level 28.3 MEQ/L Anion Gap 12 MEQ/L Estimat Glomerular Filtration Rate 23 ML/MIN Test 05/31/17 18:40 06/01/17 08:07 Blood Urea Nitrogen 22 MG/DL 24 MG/DL Creatinine 2.52 MG/DL 3.35 MG/DL Random Glucose 334 MG/DL 295 MG/DL Calcium Level 8.4 MG/DL 7.5 MG/DL Sodium Level 137 MEQ/L 137 MEQ/L Potassium Level 5.0 MEQ/L 5.3 MEQ/L Chloride Level 99 MEQ/L 102 MEQ/L Carbon Dioxide Level 25.3 MEQ/L 19.6 MEQ/L Anion Gap 13 MEQ/L 15 MEQ/L Estimat Glomerular Filtration Rate 19 ML/MIN 14 ML/MIN Total Creatine Kinase 2725 U/L 3152 U/L Creatine Kinase MB 4.3 NG/ML Creatine Kinase MB % 0.2 % Total Protein 6.5 GM/DL Albumin 1.5 GM/DL Alkaline Phosphatase 80 U/L Aspartate Amino Transf (AST/SGOT) 233 U/L Alanine Aminotransferase (ALT/SGPT) 69 U/L Total Bilirubin 0.3 MG/DL C-Reactive Protein 34.80 MG/DL Microbiology Date/Time Source Procedure Growth Status 05/30/17 17:02 Blood Peripheral Aerobic Blood Culture - Preliminary NO GROWTH IN 2 DAYS Resulted 05/30/17 17:02 Blood Peripheral Anaerobic Blood Culture - Preliminary NO GROWTH IN 2 DAYS Resulted 05/30/17 16:00 Blood Peripheral Aerobic Blood Culture - Preliminary NO GROWTH IN 2 DAYS Resulted 05/30/17 16:00 Blood Peripheral Anaerobic Blood Culture - Preliminary NO GROWTH IN 2 DAYS Resulted 06/01/17 03:50 Sputum Endotracheal Gram Stain - Final Resulted 06/01/17 03:50 Sputum Endotracheal Sputum Culture Pending Resulted 05/30/17 13:30 Urine Catheterized Urine Urine Culture - Final NO GROWTH IN 48 HOURS. Complete Imaging Last Impressions Liver Ultrasound 05/21/17 0000 Signed Impressions: Service Date/Time: Sunday, May 21, 2017 10:32 - CONCLUSION: 1. Hepatic steatosis. 2. Gallstones 3. Limited evaluation of the right kidney. Santana Lamar MD Chest X-Ray 05/21/17 0000 Signed Impressions: Service Date/Time: Sunday, May 21, 2017 06:17 - CONCLUSION: 1. Limited suboptimal study with motion artifact. 2. No definite acute cardiac pulmonary disease. Austin Orellana MD Head CT [id number]/20/[id number] Signed Impressions: Service Date/Time: Saturday, May 20, 2017 19:55 - CONCLUSION: 1. No acute findings. Retention cyst right maxillary sinus. Jakob Scruggs MD Physical Exam GENERAL: Obese patient. SKIN: No rashes. Ecchymosis noted. HEAD: Atraumatic. Normocephalic. No temporal or scalp tenderness. EYES: Pupils equal round and reactive. Extraocular motions intact. No scleral icterus. No injection or drainage. ENT: Nose without bleeding, purulent drainage or septal hematoma. Throat without erythema, tonsillar hypertrophy or exudate. Uvula midline. Airway patent. NECK: Large neck, intubated. CARDIOVASCULAR: Regular rate and rhythm without murmurs. RESPIRATORY: Breath sounds equal bilaterally. Occ Wheezing noted. Noted anteriorly. GASTROINTESTINAL: Abdomen soft, non-tender, nondistended. MUSCULOSKELETAL: Extremities without clubbing, cyanosis. Significant swelling bilateral LE upto knees pitting edema. Some erythema noted, minimal warmth. Some scabs noted R> L LE. NEUROLOGICAL: Off sedation, but not opening eyes spontaneously, moves extremities on painful stimuli both upper and lower extremities. Psych cooperative IV line sites with no e/o infection. Assessment & Plan Remarks Septic Shock with MODS Possible new Hospital acquired infection (PNA, CAUTI or bacteremia/fungemia) Meningitis/discitis(likely partially treated or parameningeal focus related CSF changes) New onset seizures likely secondary to [employer] infection process. Strep Grp B bacteremia sources: skin, GI as source. Bilateral R> L LE cellulitis. Aspiration PNA possible HCAP. Acute renal failure worsening noted. Acute resp failure: pulm edema,aspiration PNA, sleep apnea. Elevated CK: ? infective myositis related to discitis. Abnormal LFTs: sepsis related, ? rhabdo elevated CK. HTN DM2 uncontrolled. Obesity BMI 49.7 kg/m2 Recs: Continue Ceftriaxone IV q12 for possible meningitis/epidural abscess. Start Zerbaxa IV (ASP: concern for ESBL as pt has been on Cephalosporins, also HCAP in hospital concern for MDR PSAE) Start Micafungin IV (for possible fungemia, risk factor has been on broad spectrum antibiotics) Continue Flagyl change to oral pending sputum cultures (for aspiration coverage) Continue Zyvox IV (for empiric MRSA coverage for PNA). Would like to avoid Vanco IV due to ARF and also Dapto due to lung processes. DC Levaquin. Repeat blood cultures. 2D ECHO reviewed with no vegetations. Repeat MRI L spine today to assess if any epidural fluid collection or worsening needing surgical intervention. Clinically no LE weakness noted. Repeat MRI brain rule out brain abscess. Repeat EEG yday with ? subclinical seizures. Check Coags before repeat LP. Orders for CSF studies entered by me. CT chest, A/P without contrast re: look for e/o dissemination of infection, abscesses to help with source control. Buddy Clinical pharmacist about clinical regimen and dosing adjusted for Cr Clearance. Follow repeat winslow cultures. Follow clinically. Critical thinking and decision making. d/w RN, . Rod.basia pts spouse in room change in condition and above new plan for the day. Nan Portillo MD Jun 01, 2017 12:06
[2017-06-01 12:20] LABS: APTT (PATIENT) 37.3 SEC (24.3-30.1); INTERNATIONAL NORMALIZED RATIO 1.5 RATIO; PROTHROMBIN TIME - PATIENT 17.2 SEC (9.8-11.6)
[2017-06-01] MEDS: INSULIN REGULAR (IV INFUSION) 100 UNITS in SODIUM CHLORIDE 0.9% INJ 99 ML IV PRN ×2 (12:45→16:43)
[2017-06-01] MEDS ORDERED: metroNIDAZOLE 500 MG TAB PO SCH ×2 (13:00→14:00)
[2017-06-01] MEDS: HYDROCORTISONE SOD SUCCINATE 100 MG VIAL IV PUSH SCH ×2 (13:12→16:51)
[2017-06-01] MEDS: NOREPINEPHRINE INJ 8 MG in SODIUM CHLOR 0.9% 250 ML INJ 242 ML IV PRN ×3 (13:13→23:09)
[2017-06-01] MEDS ORDERED: SODIUM CHLOR 0.9% 1000 ML INJ 1,000 ML IV ONE (13:45)
--- NOTE | 2017-06-01 14:17 | HHI.CCPN ---
Subjective Remarks/Hospital Course 66-year-old female presents confused and lethargic. Patient reportedly was recently seen today at an urgent care and received an injection for low back pain. Patient here denies headaches, chest pain or shortness of breath, abdominal pain or extremity pain. Patient does complain of low back pain. at bedside states that they're visiting from out of state for the past 3 months and will be returning back to their home state in a week. reports patient has chronic low back pain but this exacerbated over the last 24 hours starting yesterday morning. Patient was seen earlier today by her chiropractor for an adjustment and then was referred to an urgent care. Patient reportedly had a fever at the chiropractor's office and felt cold and clammy. At the urgent care patient was evaluated and reportedly had an injection of a nonsteroidal medication as she is diabetic and he did not want to give her a steroid injection. Patient went home about 1:00 PM she was drowsy so sat down in a chair and fell asleep according to the . He tried to awaken her at 4:30 and noticed that she was confusional and lethargic. He attempted to continue to awaken her over the next 2-3 hours and because she was not improving decided finally to call EMS to transport her to the emergency room. Patient and spouse denied any recent injury or fall. Patient was ambulatory this morning but this evening has difficulty elevating her lower extremities as well as she was generally extremely weak. 05/21 Patient is on BIPAP 12/5 with 45% FIO2. Afebrile. Awake. Renal function is improving with Cr: 1.87 from 2.74. 05/22 No events overnight. Patient is more awake and alert off BIPAP. Renal function is improving with Cr: 1.07 from 1.87. delayed note entry. consulted and seen at ~1500. RECONSULT NOTE: 05/30: reconsulted for worsening hypoxemia. now on 6L facemask. please refer to prior consult note for detailed medical history. In brief, 66yF lethargic female, back pain after injection, ? discitis/osteo, on abx for group B strep, worsening fever, tachycardia, tachypnea, o2 requirement to 6L facemask and RR up to 40s. patient unable to provide additional history but does appear in distress. 05/31: Patient remains encephalopathic, on high flow O2 via nasal cannula, this morning was on 60 L/m 55% FiO2. Subsequently has dropped to 30 L/m to extubate percent FiO2. Given 80 mg IV Lasix with no response. Subsequently given Bumex 2 mg IV push and started on Bumex drip at 1 mg/h to attempt to diurese in an effort to improve respiratory status however has not had any increase in urine output with Bumex drip. Creatinine came back elevated at 2.13. Suspect acute kidney injury/ATN which may be a reason for poor response to diuretics. She also spiked a temperature of 103 for which IV Ofirmev was ordered. 06/01: intubated overnight and hypotensive requiring vasopressors. now remains in shock on 2 vasopressors. bedside critical care echo demonstrates hyperdynamic LV with completely collapsed IVC. gave 2L bolus and started on mivf @ 100 cc/hr. still spiking fevers. discussed with Dr. Portillo and plan to repeat LP as well as cultures and imaging to look for source. clinically worse today. Objective Vital Signs Date Time Temp Pulse Resp B/P (MAP) Pulse Ox O2 Delivery O2 Flow Rate FiO2 06/01/17 13:30 99 134/44 06/01/17 12:00 100 Mechanical Ventilator 60 06/01/17 12:00 99.3 36 05/31/17 20:29 30.00 Intake and Output 06/01/17 06/01/17 06/02/17 08:00 16:00 00:00 Intake Total 3847 ml 2781 ml Output Total 100 ml 600 ml Balance 3747 ml 2181 ml Result Diagram: 06/01/17 0807 06/01/17 0807 Other Results Microbiology Date/Time Source Procedure Growth Status 05/30/17 13:30 Urine Catheterized Urine Urine Culture - Final NO GROWTH IN 48 HOURS. Complete Laboratory Tests Test 05/31/17 15:11 05/31/17 20:25 06/01/17 00:00 Blood Gas Puncture Site LT RADIAL RT BRACHIAL LT BRACHIAL Blood Gas Patient Temperature 98.6 98.6 98.6 Blood Gas HCO3 27 mmol/L (22-26) 25 mmol/L (22-26) 22 mmol/L (22-26) Blood Gas Base Excess 2.5 mmol/L (-2-2) 1.1 mmol/L (-2-2) -2.8 mmol/L (-2-2) Blood Gas Oxygen Saturation 91 % (90-100) 91 % (90-100) 93 % (90-100) Arterial Blood pH 7.43 (7.380-7.420) 7.41 (7.380-7.420) 7.33 (7.380-7.420) Arterial Blood Partial Pressure CO2 41 mmHg (38-42) 41 mmHg (38-42) 43 mmHg (38-42) Arterial Blood Partial Pressure O2 70 mmHg (61-120) 68 mmHg (61-120) 83 mmHg (61-120) Arterial Blood Oxygen Content 15.4 Vol % (12.0-20.0) 14.8 Vol % (12.0-20.0) 14.6 Vol % (12.0-20.0) Arterial Blood Carboxyhemoglobin 1.0 % (0-4) 0.9 % (0-4) 0.6 % (0-4) Arterial Blood Methemoglobin 1.2 % (0-2) 1.0 % (0-2) 1.1 % (0-2) Blood Gas Hemoglobin 12.0 G/DL (12.0-16.0) 11.6 G/DL (12.0-16.0) 11.1 G/DL (12.0-16.0) Oxygen Delivery Device NASAL CANNULA NASAL CANNULA VENTILATOR Blood Gas Liter Flow 30 L/M 30 L/M Blood Gas Inspired Oxygen 50 % 50 % 60 % Blood Gas Ventilator Setting 16/500/IT1.0/5PEEP Imaging Last Impressions Liver Ultrasound 05/21/17 0000 Signed Impressions: Service Date/Time: Sunday, May 21, 2017 10:32 - CONCLUSION: 1. Hepatic steatosis. 2. Gallstones 3. Limited evaluation of the right kidney. Santana Lamar MD Chest X-Ray 05/21/17 0000 Signed Impressions: Service Date/Time: Sunday, May 21, 2017 06:17 - CONCLUSION: 1. Limited suboptimal study with motion artifact. 2. No definite acute cardiac pulmonary disease. Austin Orellana MD Head CT [id number]/20/[id number] Signed Impressions: Service Date/Time: Saturday, May 20, 2017 19:55 - CONCLUSION: 1. No acute findings. Retention cyst right maxillary sinus. Jakob Scruggs MD Objective Remarks GENERAL: Patient is 66 yo lying in bed, intubated, sedated. SKIN: Warm and dry. HEAD: Normocephalic. EYES: No scleral icterus. No injection or drainage. NECK: trachea midline. large neck prevents accurate assessment of JVD. CARDIOVASCULAR: tachycardic rate, regular rhythm. on levophed and vasopressin. RESPIRATORY: cintubated, fio2 60%, coarse breath sounds bilaterally. GASTROINTESTINAL: Abdomen soft, non-tender, nondistended. MUSCULOSKELETAL: No cyanosis, or edema. Neuro: RASS -4. CAM +. withdraws to pain. does not follow commands. Procedures None Date of Insertion: May 25, 2017 A/P Assessment and Plan Assessment: 66yF with encephalopathy thought to be secondary to [employer]PER[employer] infection vs. toxic/metabolic, with worsening hypoxic respiratory failure and now septic shock with multiorgan system involvement. Critically ill and much worse today despite aggressive treatment. Dr. Portillo and I both feel repeat LP is indicated since other studies have failed to produce definitive source. INR slightly elevated at 1.5 likely secondary to liver dysfunction during shock. I have consented the for the increased risk of bleeding complications with the LP, and he agrees to proceed despite increased risk. Septic Shock Multiorgan system dysfunction Shock liver Acute kidney injury Intravascular volume depletion Presumed adrenal insufficiency Strep bacteremia (recent blood cultures negative) Encephalopathy Discitis Possible [employer] infection Acute hypoxic respiratory failure Possible new HCAP/Aspiration pneumonia Acute encephalopathy Possible volume overload JAMES Morbid obesity Suspect Obstructive sleep apnea syndrome Uncontrolled diabetes mellitus Plan Neuro -Follow neuro status. Abnormal EEG previously. Follow-up repeat EEG. Continue phenytoin. added Keppra. Neurology following. Cardiovascular - levophed, vasopressin. add empiric steroids. 2L bolus. start mivf @ 100 cc/hr. Pulmonary - wean fio2 for goal spo2 > 90%. - vent bundle, hob at 30 degrees, nebs. - sputum culture - no SBT until mental status and shock improves. ID - abx per ID. on Rocephin, Levaquin, Zyvox, Flagyl IV. Follow-up cultures. - repeat LP - CT chest/abd/pelvis. MRI brain, spine. Renal/ -james likely secondary to sepsis. hold diuresis. ivf resuscitation. GI/liver - OGT. NPO until shock resolves. Endocrine Continue Levemir. Increased from medium to high dose SSI for better glycemic control. Heme Follow CBC Prophylaxis -Heparin for DVT prophylaxis, Pepcid for GI prophylaxis. Critical care time: 82 minutes, exclusive of separately billable procedures. Bang Anthony MD Jun 01, 2017 14:17
[2017-06-01 15:34] LABS: BLOOD GAS BASE EXCESS -7.5 mmol/L (-2-2); BLOOD GAS CARBOXYHEMOGLOBIN 0.5 % (0-4); BLOOD GAS HCO3 18 mmol/L (22-26); BLOOD GAS METHEMOGLOBIN 1.3 % (0-2); BLOOD GAS O2 HGB SATURATION 94 % (90-100); BLOOD GAS OXYGEN CONTENT 13.8 Vol % (12.0-20.0); BLOOD GAS PCO2 36 mmHg (38-42); BLOOD GAS PO2 87 mmHg (61-120); BLOOD GAS TOTAL HGB 10.4 G/DL (12.0-16.0); CRITICAL VALUE NO; DRAW SITE ART LINE; FIO2 60 %; OXYGEN DEVICE VENTILATOR; STAT YES; TEMP CORR TO 98.6; VENT SETTINGS PRVC/AC 500/16
[2017-06-01 16:20] LABS: SUPERNATE COLOR TUBE #1 CLEAR (CLEAR); VOLUME TUBE # 1 3.8 ML
[2017-06-01 16:21] LABS: CSF LYMPHOCYTES 8 %; CSF MONOCYTES 2 %; CSF NEUTROPHILS 90 %; GROSS BLOOD TUBE #1 TRACE (0); GROSS BLOOD TUBE #2 TRACE (0); GROSS BLOOD TUBE #3 TRACE (0); GROSS BLOOD TUBE #4 TRACE (0); SUPERNATE COLOR TUBE #2 CLEAR (CLEAR); SUPERNATE COLOR TUBE #3 CLEAR (CLEAR); SUPERNATE COLOR TUBE #4 CLEAR (CLEAR); VOLUME TUBE # 4 4.5 ML; WBC TUBE #1 217 /MM3 (0-10)
--- NOTE | 2017-06-01 17:26 | HHI.PR ---
Subjective Remarks 66 YOObese WF with Hypercapnoea, Cellulitis, Bactremia Encephalopathic Intubated Sedated On PRC, Fi02 60% Objective Vital Signs Vital Signs Date Time Temp Pulse Resp B/P (MAP) Pulse Ox O2 Delivery O2 Flow Rate FiO2 06/01/17 17:16 92 112/95 06/01/17 16:42 92 83/52 06/01/17 16:00 100.5 93 35 109/52 (71) 98 132/54 (80) 06/01/17 16:00 93 06/01/17 16:00 98 Mechanical Ventilator 60 06/01/17 15:27 99 60 06/01/17 14:00 97 06/01/17 13:30 99 134/44 06/01/17 13:20 101 151/51 06/01/17 13:13 97 116/41 06/01/17 12:00 96 06/01/17 12:00 100 Mechanical Ventilator 60 06/01/17 12:00 99.3 96 36 83/44 (57) 100 143/49 (80) 06/01/17 11:12 100 60 06/01/17 10:00 98 06/01/17 08:00 95 Mechanical Ventilator 60 06/01/17 08:00 104 06/01/17 08:00 102.4 104 24 140/78 (98) 95 91/38 (55) 06/01/17 07:36 95 60 06/01/17 07:00 107 90/38 (55) 06/01/17 07:00 107 90/38 06/01/17 07:00 107 90/38 06/01/17 06:00 104 06/01/17 05:44 103 92/39 06/01/17 05:36 104 79/36 06/01/17 05:36 104 80/37 06/01/17 05:21 103 83/36 06/01/17 04:12 95 60 06/01/17 04:00 95 Mechanical Ventilator 60 Nasal Cannula 06/01/17 04:00 103.0 108 29 95/43 (60) 96 99/45 (63) 06/01/17 04:00 108 06/01/17 02:00 111 06/01/17 01:01 100 60 06/01/17 00:00 95 Mechanical Ventilator 60 Nasal Cannula 06/01/17 00:00 106 06/01/17 00:00 99.9 106 42 138/79 (98) 95 05/31/17 22:45 95 60 05/31/17 22:00 108 05/31/17 20:29 93 High Flow Nasal Cannula 30.00 50 05/31/17 20:00 Nasal Cannula 30.00 50 05/31/17 20:00 100.0 109 46 104/52 (69) 85 05/31/17 20:00 109 05/31/17 18:00 108 I/O 05/31/17 05/31/17 05/31/17 06/01/17 06/01/17 06/01/17 07:00 15:00 23:00 07:00 15:00 23:00 Intake Total 100 ml 2176 ml 3847 ml 2781 ml 14181 ml Output Total 375 ml 100 ml 100 ml 600 ml Balance -275 ml 2176 ml -100 ml 3747 ml 2181 ml 46966 ml Intake Oral 0 ml IV Total 100 ml 2176 ml 3847 ml 2781 ml 41277 ml Output Urine Total 375 ml 100 ml 100 ml 600 ml # Bowel Movements 0 Result Diagram: 06/01/17 0807 06/01/17 0807 Objective Remarks GENERAL: Morbidly obese WF, mild sob SKIN: Warm and dry. HEAD: Normocephalic. EYES: No scleral icterus. No injection or drainage. NECK: Supple, trachea midline. No JVD or lymphadenopathy. CARDIOVASCULAR: Regular rate and rhythm without murmurs, gallops, or rubs. RESPIRATORY: Breath sounds equal bilaterally. No accessory muscle use. GASTROINTESTINAL: Abdomen soft, non-tender, nondistended. MUSCULOSKELETAL: No cyanosis, or edema. has swelling and redness of legs BACK: Nontender without obvious deformity. No CVA tenderness. A/P Assessment and Plan Hypercapnoic Resp Insuff CHE or Obesity Hypoventilation synd Cellulitis legs Bactremia back pain Sepsis Encephalopathy PLAN: Vent Support Aerosol nebs Wean 02 to keep sat 88-92% Abx per ID Cont Dilantin Going for CT chest abd and MRI Dima Bang MD Jun 01, 2017 17:26
--- NOTE | 2017-06-01 19:11 | RADRPT ---
EXAM DATE/TIME: 06/01/2017 18:49 [facility] COMPARISON: CHEST SINGLE AP, May 31, 2017, 23:33. INDICATIONS : Respiratory distress. Evaluate pneumonia. RADIATION DOSE: 19.79 CTDIvol (mGy) ; Combined studies - Thorax/Abdomen/Pelvis MEDICAL HISTORY : Non-responsive. SURGICAL HISTORY : Non-responsive. ENCOUNTER: Subsequent ACUITY: 4 - 6 days PAIN SCALE: Non-responsive LOCATION: chest TECHNIQUE: Volumetric scanning of the chest was performed. Using automated exposure control and adjustment of t he mA and/or kV according to patient size, radiation dose was kept as low as reasonably achievable to obtain optimal diagnostic quality images. DICOM format image data is available electronically for r eview and comparison. Follow-up recommendations for detected pulmonary nodules are based at a minimum on nodule size and pa tient risk factors according to Fleischner Society Guidelines. FINDINGS: LUNGS: There is dense consolidation in both posterior lower lobes with air bronchograms right slightly great er than left. PLEURAE: There is small pleural effusions. MEDIASTINUM: An endotracheal tube is in place. A nasogastric tube is seen coursing through the esophagus. The hear t and great vessels demonstrate no acute abnormality. There is no mediastinal or hilar lymphadenopat hy. There is mild cardiomegaly. AXILLAE: Within normal limits. No lymphadenopathy. MUSCULOSKELETAL: Within normal limits for patient age. MISCELLANEOUS: The visualized upper abdominal organs demonstrate no acute abnormality. CONCLUSION: 1. Dense consolidation in both posterior lower lobes right greater than left with air bronchograms. T his could represent pneumonia. 2. Small bilateral pleural effusions. 3. Mild cardiomegaly. Austin Orellana MD on June 01, 2017 at 19:07 Board Certified Radiologist. This report was verified electronically.
--- NOTE | 2017-06-01 19:17 | RADRPT ---
EXAM DATE/TIME: 06/01/2017 18:49 [place] Corrected on: June 01, 2017; [facility] COMPARISON: No previous studies available for comparison. INDICATIONS : Abdominal pain. Evaluate abscess. ORAL CONTRAST: No oral contrast ingested. RADIATION DOSE: 19.79 CTDIvol (mGy) ; Combined studies - Thorax/Abdomen/Pelvis MEDICAL HISTORY : Non-responsive. SURGICAL HISTORY : Non-responsive. ENCOUNTER: Initial ACUITY: 1 day PAIN SCALE: Non-responsive LOCATION: abdomen TECHNIQUE: Volumetric scanning of the abdomen and pelvis was performed. Using automated exposure control and ad justment of the mA and/or kV according to patient size, radiation dose was kept as low as reasonably achievable to obtain optimal diagnostic quality images. DICOM format image data is available electro nically for review and comparison. FINDINGS: LOWER LUNGS: Dense consolidation is noted in both posterior lower lobes with air bronchograms. There are small ple ural effusions. LIVER: Homogeneous density without lesion. There is no dilation of the biliary tree. No calcified gallston es. SPLEEN: Normal size without lesion. PANCREAS: Within normal limits. KIDNEYS: Normal in size and shape. There is no solid mass, stone, or hydronephrosis. There is a cyst extendin g off the lateral upper pole the right kidney. ADRENAL GLANDS: The right adrenal gland is unremarkable. There is a low density oval mass in the left adrenal gland m easuring approximately 1.8 x 1.6 cm in diameter and measuring 33 Hounsfield units in density. VASCULAR: There is no aortic aneurysm. BOWEL/MESENTERY: A nasogastric tube is noted with the tip in the proximal small bowel. Oral contrast is noted in the p roximal and mid small bowel. There are multiple loops of unopacified distal small bowel. Colon is opa cified as well. There is a crescentic gas collection in the anterior lower pelvis adjacent soft tissu e which is poorly defined. It is not clear if this is in bowel or could represent a possible abscess. The gas collection measures up to 2.8 x 1.5 cm and the adjacent soft tissue density measures up to 5 .9 x 5.6 cm. ABDOMINAL WALL: Within normal limits. RETROPERITONEUM: There is no lymphadenopathy. BLADDER: No wall thickening or mass. REPRODUCTIVE: Within normal limits. INGUINAL: There is no lymphadenopathy or hernia. MUSCULOSKELETAL: Within normal limits for patient age. CONCLUSION: 1. Suboptimal opacification of the bowel with the distal small bowel unopacified. There is a question able abnormal gas collection in the anterior lower pelvis. An abscess is not excluded. A repeat study is recommended after additional oral contrast is given. 2. Consolidation in both posterior lung bases with small pleural effusions. Austin Orellana MD on June 01, 2017 at 19:09 Board Certified Radiologist. This report was verified electronically. Austin Orellana MD on June 01, 2017 at 20:59 Board Certified Radiologist. This report was verified electronically.
--- NOTE | 2017-06-01 19:56 | RADRPT ---
EXAM DATE/TIME: 06/01/2017 19:15 [facility] COMPARISON: MRI BRAIN W & W/O CONTRAST, May 25, 2017, 19:02. INDICATIONS : Altered mental status. Abscess. MEDICAL HISTORY : Hypertension. Diabetes mellitus type 2. SURGICAL HISTORY : section. ENCOUNTER: Initial ACUITY: 1 week PAIN SCORE: Nonresponsive. LOCATION: Head. TECHNIQUE: Multiplanar, multisequence MRI of the brain was performed without contrast. FINDINGS: CEREBRUM: The ventricles are normal for age. No evidence of midline shift, mass lesion, or hemorrhage. No extr aaxial fluid collections are seen. The pituitary gland and suprasellar cistern are normal in configu ration. WHITE MATTER: There is mild increased signal noted in the centrum semiovale and periventricular white matter consis tent with chronic small vessel ischemic change. POSTERIOR FOSSA: The cerebellum and brainstem are intact. The 4th ventricle is midline. The cerebellopontine angle is unremarkable. The cerebellar tonsils are normal in position. DIFFUSION IMAGING: There are multiple new small scattered punctate areas of restricted diffusion now noted. These range in size from 2-3 mm up to approximately 8 mm. The largest is in the right occipital lobe. Others are scattered in the parietal, frontal and occipital lobes. EXTRACRANIAL: The visualized portions of the orbits are unremarkable. A retention cyst is again noted the right max illary sinus. Mucosal thickening and air-fluid levels in the ethmoidal air cells and sphenoid sinuses . CONCLUSION: 1. Multiple new small scattered punctate areas of restricted diffusion consistent with small areas of infarction. This could be secondary to emboli. 2. No acute hemorrhage or mass effect. 3. Acute sinusitis in the ethmoidal air cells and sphenoid sinus with air fluid levels. Austin Orellana MD on June 01, 2017 at 19:49 Board Certified Radiologist. This report was verified electronically.
[2017-06-01] MEDS: RESP: ALBUTEROL 2.5 MG/IPRATROPIUM 0.5 MG NEB (PRN) NEB (20:50)
--- NOTE | 2017-06-01 20:52 | RADRPT ---
EXAM DATE/TIME: 06/01/2017 19:15 [facility] COMPARISON: MRI LUMBAR SPINE W/O CONTRAST, May 25, 2017, 19:02. INDICATIONS : Abscess. Epidural abscess. MEDICAL HISTORY : Diabetes mellitus type 2. Hypertension. SURGICAL HISTORY : section. ENCOUNTER: Subsequent ACUITY: 1 week PAIN SCORE: Nonresponsive. LOCATION: Back. TECHNIQUE: Multiplanar multisequence MRI of the lumbar spine was performed without contrast. FINDINGS: The most caudal appearing lumbar vertebra is numbered as L5. VERTEBRAE: Abnormal signal is again noted in the endplates at the L3-4 level with patchy mild increased signal o n the T1-weighted images and mixed patchy signal in the T2-weighted images.Normal alignment. DISCS: There is increased signal noted in the disc space at C3-4 on the T2-weighted sequences which is uncha nged from the prior study. An anterior extradural defect is again noted at this level on the sagittal images. The other discs are preserved with mild desiccation. CONUS: Normal level and configuration. T12-L1: The thecal sac has a normal diameter. No evidence of disc bulge or protrusion. The neural foramina are patent bilaterally. L1-L2: The thecal sac has a normal diameter. No evidence of disc bulge or protrusion. The neural foramina are patent bilaterally. L2-L3: There is a mild disc bulge with minimal flattening of the anterior thecal sac and no focal protrusion . The neural foramina are patent bilaterally. L3-L4: Heterogeneous patchy signal remains in the endplates with abnormal increased signal in the disc space on the T2-weighted images. There is mild disc space narrowing. There is an annular disc osteophyte c omplex with high signal anterior extradural defect noted measuring approximately 9 mm across the base and 4-5 mm in AP diameter. There is mass effect on the anterior thecal sac. There is mild narrowing of the neural foramina. There are mild degenerative changes involve the facet joints and there is mod erate central canal stenosis. L4-L5: Mild annular disc bulge with flattening of the thecal sac and mild narrowing of the neural foramina. Degenerative changes are noted involving the facet joints with borderline central canal stenosis. The neural foramina are patent bilaterally. L5-S1: The thecal sac has a normal diameter. No evidence of disc bulge or protrusion. The neural foramina are patent bilaterally. There are mild degenerative changes involving the facet joints. CONCLUSION: 1. Atypical signal changes remain in the L3-4 disc and adjacent endplates The findings remain nonspec ific. There is a moderate size posterior central epidural mass with mass effect on the anterior theca l sac. There is moderate central canal stenosis. The differential diagnosis includes disc protrusion versus small epidural abscess. A contrast enhanced lumbar spine study may be helpful for further eval uation. 2. Mild disc bulges at L2-3 and L4-5 levels with mild flattening the anterior thecal sac. Austin Orellaan MD on June 01, 2017 at 20:37 Board Certified Radiologist. This report was verified electronically.
--- NOTE | 2017-06-01 21:17 | HHI.PR ---
Addendum to Inpatient Note Addendum Reason: Additional Documentation Additional Information Imaging reviewed by me. I also called Radiologist precision devices inspector/tester and discussed case with him. He advised repeat imaging with contrast. I informed him that unfortunately due to worsening renal function and possible need for HD pt may not be able to receive MRI with contrast but I will check with Nephrology in am. MRI Brain: new emboli in setting of sepsis possible septic emboli. d/w and also notified set up and charger bozena to let know. This is likely a subacute process given her changing mentation. In view of multiple areas of dissemination will consult cardiology for STEVEN. MRI L Spine without contrast: based on radiologist review and comparison concern for discitis. No obvious abscess or myositis but this is without contrast. He recommends repeat Imaging with contrast. I asked him for alternative such as CT guided L spine biopsy at site of abnormality as an option. Will d.w IR in am about CT guided biopsy. CT Chest with consolidation. CT Abd/pelvis without contrast. Not much oral contrast but an area is concerning for abscess and air. D.w Dr.Voda PAOLA GALLARDO precision devices inspector/tester to determine clinically on bedside exam if this is an emergency and to change the Surgery consult to stat based on clinical exam. Radiologist precision devices inspector/tester recommends ordering repeat CT Abd/pelvis with contrast nury more oral contrast. Critically ill patient. Surgery consult tonight based on exam. Will assess in am and prioritize the workup. Continue same antibiotic regimen for now except will change Flagyl IV anticipating possible need for surgery. Appreciate PAOLA GALLARDO assistance tonight. Nan Portillo MD Jun 01, 2017 21:17
[2017-06-01] MEDS: levETIRAcetam INJ 750 MG in SODIUM CHLORIDE 0.9% INJ 100 ML IV SCH (22:54)
[2017-06-02] VITALS (18 sets, daily range): BP systolic 93–146; BP diastolic 49–90; PULSE 83–94; RESP 16–30; TEMP 97.1–99.8; O2SAT 92–100
[2017-06-02] MEDS: CEFTOLOZANE-TAZOBACTAM INJ 375 MG in SODIUM CHLORIDE 0.9% INJ 100 ML IV SCH ×3 (00:01→18:11)
[2017-06-02] MEDS: HYDROCORTISONE SOD SUCCINATE 100 MG VIAL IV PUSH SCH ×4 (00:02→18:09)
[2017-06-02] MEDS: LINEZOLID 600 MG PREMIX 300 ML IV SCH ×2 (00:02→13:56)
[2017-06-02] MEDS: INSULIN REGULAR (IV INFUSION) 100 UNITS in SODIUM CHLORIDE 0.9% INJ 99 ML IV PRN ×3 (02:17→20:06)
[2017-06-02] MEDS: MIDAZOLAM 100 MG/100 ML INJ 100 ML IV PRN ×2 (02:36→18:15)
[2017-06-02] MEDS: CHLORHEXIDINE GLUCONATE 2 % 1 PACK (2 CLOTHS) TOP SCH (03:59)
[2017-06-02] MEDS: metroNIDAZOLE 500 MG INJ 100 ML IV SCH ×3 (04:15→21:17)
[2017-06-02] MEDS: cefTRIAXone INJ 2,000 MG in SODIUM CHLORIDE 0.9% INJ 100 ML IV SCH ×2 (04:15→18:12)
[2017-06-02] MEDS: PHENYTOIN INJ 100 MG/2 ML VIAL IV SCH ×3 (04:15→21:17)
[2017-06-02] MEDS: HEPARIN SODIUM - SQ 10,000 UNITS/ML VIAL SQ SCH ×3 (04:16→21:17)
[2017-06-02] MEDS ORDERED: SODIUM CHLORID 0.9% 500 ML INJ 500 ML IV ONE (07:15)
[2017-06-02] MEDS: SODIUM CHLOR 0.9% 1000 ML INJ 1,000 ML IV SCH ×2 (08:07→20:07)
[2017-06-02] MEDS: FAMOTIDINE 20 MG/2 ML VIAL IV PUSH SCH ×2 (08:07→20:04)
[2017-06-02] MEDS: DOCUSATE SODIUM 50 MG/SENNA 8.6 MG TAB PO SCH ×2 (08:09→20:04)
[2017-06-02] MEDS: levETIRAcetam INJ 750 MG in SODIUM CHLORIDE 0.9% INJ 100 ML IV SCH ×2 (08:09→20:04)
[2017-06-02] MEDS: MICAFUNGIN INJ 150 MG in SODIUM CHLORIDE 0.9% INJ 100 ML IV SCH (08:10)
[2017-06-02] MEDS: SODIUM CHLORIDE 0.9% FLUSH 10 ML FLUSH IV FLUSH SCH ×2 (08:11→20:05)
[2017-06-02] MEDS: NYSTATIN 100,000 U/GM PWD 15 GM BTL TOPICAL SCH ×2 (08:11→21:00)
[2017-06-02 09:11] LABS: HSV 1,PCR Negative (Negative)
--- NOTE | 2017-06-02 10:25 | HHI.IDPN ---
Subjective Subjective Remarks is a 66-year-old female presents confused and lethargic. Patient reportedly was recently seen today at an urgent care and received an injection for low back pain. Patient here denies headaches, chest pain or shortness of breath, abdominal pain or extremity pain. Patient does complain of low back pain. at bedside states that they're visiting from out of state for the past 3 months and will be returning back to their home state in a week. reports patient has chronic low back pain but this exacerbated over the last 24 hours starting yesterday morning. Patient was seen earlier today by her chiropractor for an adjustment and then was referred to an urgent care. Patient reportedly had a fever at the chiropractor's office and felt cold and clammy. At the urgent care patient was evaluated and reportedly had an injection of a nonsteroidal medication as she is diabetic and he did not want to give her a steroid injection. Patient went home about 1:00 PM she was drowsy so sat down in a chair and fell asleep according to the . He tried to awaken her at 4:30 and noticed that she was confusional and lethargic. He attempted to continue to awaken her over the next 2-3 hours and because she was not improving decided finally to call EMS to transport her to the emergency room. Patient and spouse denied any recent injury or fall. Patient was ambulatory this morning but this evening has difficulty elevating her lower extremities as well as she was generally extremely weak. Remains in ICU on vent. Intubated FIO2 50% and PEEP 5. Temps defervesced. On Levophed (down from 30 to 3 mics) and Vasopressin(decreased as well) overnight. UO 1375 ml. No rash. No diarrhea. Antibiotics I attest I reviewed, obtained or updated pts home meds and current meds for name , dose, duration and frequency of medications. Reported Meds & Active Scripts Active Walker with Front Wheels (Device) 1 Mis Mis Ea .ROUTE DIRECTED Reported Novolog Mix 70-30 Inj (Insulin Aspart Prota 70%/Aspart 30%) 1,000 Unit/10 Ml Vial Unknown Dose SQ BIDAC Glimepiride 1 Mg Tab Unknown Dose PO DAILY Take with breakfast or first main meal Lisinopril-Hctz 10-12.5 Mg Tab Unknown Dose PO DAILY Metformin (Metformin HCl) 1,000 Mg Tab Unknown Dose PO BIDPC Current Medications Medications (Trade) Dose Ordered Sig/Erasmo Route Start Time Stop Time Status Last Admin (Heparin Inj) 5,000 units Q8H SQ 05/20/17 22:00 Future hold 06/02/17 04:16 Miscellaneous Information 1 [id number] XX 05/20/17 22:30 (Chlorhexidine 2% Cloth) Taper DAILY@04 TOP 05/21/17 04:00 05/17/18 03:59 06/02/17 03:59 (Chlorhexidine 2% Cloth) 3 pack UNSCH PRN TOP 05/20/17 22:30 (Tylenol) 650 mg Q6H PRN PO 05/21/17 01:30 (Duoneb Neb) 1 ampule Q2HR NEB PRN NEB 05/21/17 05:45 06/01/17 20:50 (D50w (Vial) Inj) 50 ml UNSCH PRN IV PUSH 05/22/17 07:30 (Glucagon Inj) 1 mg UNSCH PRN OTHER 05/22/17 07:30 (NS Flush) 2 ml UNSCH PRN IV FLUSH 05/24/17 12:15 05/31/17 10:37 (NS Flush) 2 ml BID IV FLUSH 05/24/17 21:00 06/02/17 08:11 (Narcan Inj) 0.4 mg UNSCH PRN IV PUSH 05/24/17 12:15 (May-Colace) 1 tab BID PO 05/24/17 21:00 06/02/17 08:09 (Milk Of Magnesia Liq) 30 ml Q12H PRN PO 05/24/17 12:15 05/24/17 13:45 (Senokot) 17.2 mg Q12H PRN PO 05/24/17 12:15 (Dulcolax Supp) 10 mg DAILY PRN RECTAL 05/24/17 12:15 (Lactulose Liq) 30 ml DAILY PRN PO 05/24/17 12:15 Ceftriaxone Sodium 2000 mg/ Sodium Chloride 100 ml @ 200 mls/hr Q12H IV 05/25/17 17:00 06/02/17 04:15 (Dilantin Inj) 100 mg Q8HR IV 05/26/17 22:00 06/02/17 04:15 (Mycostatin Powder) 1 applic Q12HR TOPICAL 10/31/17 10:00 05/31/17 21:00 Linezolid 300 ml @ 300 mls/hr Q12H IV 05/30/17 13:00 06/02/17 00:02 (Tylenol Supp) 650 mg Q6H PRN RECTAL 05/30/17 13:15 05/30/17 14:06 (Pepcid Inj) 10 mg Q12HR IV PUSH 05/31/17 21:00 06/02/17 08:07 (Ofirmev 1000 Mg/ 100 ml Inj) 1,000 mg Q6H PRN IV 05/31/17 16:30 05/31/17 16:51 Midazolam HCl 100 ml @ 2 mls/hr TITRATE PRN IV 05/31/17 22:45 06/02/17 02:36 Vasopressin 40 units/Dextrose 100 ml @ 6 mls/hr [id number] IV 06/01/17 05:21 06/01/17 13:20 Micafungin Sodium 150 mg/Sodium Chloride 100 ml @ 100 mls/hr Q24H IV 06/01/17 08:00 06/02/17 08:10 Ceftolozane/ Tazobactam 375 mg/ Sodium Chloride 100 ml @ 100 mls/hr Q8H IV 06/01/17 09:00 06/02/17 08:10 Sodium Chloride 1,000 ml @ 100 mls/hr Q10H IV 06/01/17 11:00 06/02/17 08:07 (SoluCORTEF INJ) 50 mg Q6HR IV PUSH 06/01/17 12:15 06/02/17 04:16 Insulin Human Regular 100 units/ Sodium Chloride 100 ml @ 3 mls/hr TITRATE PRN IV 06/01/17 11:45 06/02/17 02:17 (D50w (Vial) Inj) 50 ml UNSCH PRN IV PUSH 06/01/17 11:45 Norepinephrine Bitartrate 8 mg/ Sodium Chloride 250 ml @ 37.5 mls/hr TITRATE PRN IV 06/01/17 13:00 06/01/17 23:09 Levetriacetam 750 mg/Sodium Chloride 107.5 ml @ 430 mls/hr Q12HR IV 06/01/17 21:00 11/3/17 08:09 Metronidazole 100 ml @ 100 mls/hr Q8H IV 06/01/17 22:00 06/02/17 04:15 Lines Line sites with no e.o infection Past Medical History Diabetes Dyslipidemia Hypertension Chronic back pain sees a chiropracter. Chronic lower extremity swelling. Never had an ECHO before per pt and spouse. ? Sleep apnea. Allergies: Coded Allergies: No Known Allergies (Unverified , 05/20/17) Objective . Vital Signs Date Time Temp Pulse Resp B/P (MAP) Pulse Ox O2 Delivery O2 Flow Rate FiO2 06/02/17 08:22 91 141/83 06/02/17 08:00 90 06/02/17 08:00 99.8 90 30 114/56 (75) 94 141/82 (101) 06/02/17 08:00 50 06/02/17 07:00 84 138/80 06/02/17 07:00 84 138/80 06/02/17 06:00 84 06/02/17 06:00 84 120/60 (80) 133/79 (97) 06/02/17 04:27 93 50 06/02/17 04:10 86 137/82 06/02/17 04:00 99.4 85 26 128/60 (82) 93 135/82 (99) 06/02/17 04:00 50 06/02/17 04:00 85 06/02/17 04:00 93 Mechanical Ventilator 50 06/02/17 04:00 85 135/82 06/02/17 04:00 85 06/02/17 02:30 67 240/115 06/02/17 02:20 83 158/86 06/02/17 02:10 85 160/89 06/02/17 02:00 85 06/02/17 02:00 85 160/91 06/02/17 00:20 96 146/95 06/02/17 00:10 95 141/94 06/02/17 00:06 95 50 06/02/17 00:00 92 06/02/17 00:00 92 135/90 06/02/17 00:00 96 Mechanical Ventilator 50 06/02/17 00:00 92 06/02/17 00:00 50 06/02/17 00:00 99.4 92 16 146/65 (92) 93 135/90 (105) 06/01/17 23:50 92 135/93 06/01/17 23:40 94 130/89 06/01/17 23:20 91 141/78 06/01/17 23:09 91 137/65 06/01/17 23:00 93 137/69 06/01/17 22:54 90 134/72 06/01/17 22:50 92 123/79 06/01/17 22:40 92 127/71 06/01/17 22:30 96 100/60 06/01/17 22:20 92 128/62 06/01/17 22:10 91 163/69 06/01/17 22:00 93 06/01/17 22:00 93 171/72 06/01/17 21:50 89 146/76 06/01/17 21:40 89 143/77 06/01/17 21:30 88 139/75 06/01/17 21:20 87 136/78 06/01/17 21:10 87 120/76 06/01/17 21:00 99.3 86 16 140/63 (88) 95 121/80 (94) 06/01/17 21:00 86 06/01/17 21:00 86 121/80 06/01/17 20:45 96 60 06/01/17 20:00 98 Mechanical Ventilator 60 06/01/17 20:00 60 06/01/17 20:00 96 06/01/17 19:00 99 152/77 06/01/17 18:45 100 100 06/01/17 18:14 89 148/84 06/01/17 18:14 89 148/84 06/01/17 18:00 97 06/01/17 18:00 97 104/55 (71) 97/62 (74) 06/01/17 17:16 92 112/95 06/01/17 16:42 92 83/52 06/01/17 16:00 100.5 93 35 109/52 (71) 98 132/54 (80) 06/01/17 16:00 93 06/01/17 16:00 98 Mechanical Ventilator 60 06/01/17 15:27 99 60 06/01/17 14:00 97 06/01/17 13:30 99 134/44 06/01/17 13:20 101 151/51 06/01/17 13:13 97 116/41 06/01/17 12:00 96 06/01/17 12:00 100 Mechanical Ventilator 60 06/01/17 12:00 99.3 96 36 83/44 (57) 100 143/49 (80) 06/01/17 11:12 100 60 06/02/17 06/02/17 06/03/17 15:00 23:00 07:00 Intake Total 965 ml Balance 965 ml IV Total 965 ml . Laboratory Tests Test 05/31/17 11:42 06/01/17 08:07 White Blood Count 13.7 TH/MM3 19.1 TH/MM3 Red Blood Count 3.78 MIL/MM3 3.74 MIL/MM3 Hemoglobin 10.9 GM/DL 10.8 GM/DL Hematocrit 34.8 % 34.8 % Mean Corpuscular Volume 92.0 FL 92.9 FL Mean Corpuscular Hemoglobin 28.9 PG 28.9 PG Mean Corpuscular Hemoglobin Concent 31.4 % 31.1 % Red Cell Distribution Width 16.2 % 16.3 % Platelet Count 167 TH/MM3 182 TH/MM3 Mean Platelet Volume 10.4 FL 10.8 FL Neutrophils (%) (Auto) 69.5 % 66.5 % Lymphocytes (%) (Auto) 17.4 % 21.5 % Monocytes (%) (Auto) 11.4 % 9.8 % Eosinophils (%) (Auto) 0.4 % 0.8 % Basophils (%) (Auto) 1.3 % 1.4 % Neutrophils # (Auto) 9.5 TH/MM3 12.7 TH/MM3 Lymphocytes # (Auto) 2.4 TH/MM3 4.1 TH/MM3 Monocytes # (Auto) 1.6 TH/MM3 1.9 TH/MM3 Eosinophils # (Auto) 0.1 TH/MM3 0.2 TH/MM3 Basophils # (Auto) 0.2 TH/MM3 0.3 TH/MM3 CBC Comment AUTO DIFF AUTO DIFF Differential Total Cells Counted 100 100 Neutrophils % (Manual) 64 % 49 % Band Neutrophils % 16 % 10 % Lymphocytes % 6 % 26 % Monocytes % 12 % 11 % Neutrophils # (Manual) 11.2 TH/MM3 12.0 TH/MM3 Myelocytes 2 % 3 % Differential Comment FINAL DIFF MANUAL FINAL DIFF MANUAL Platelet Estimate NORMAL NORMAL Platelet Morphology Comment NORMAL ENLARGED Stomatocytes 1+ Promyelocytes 1 % Toxic Granulation 1+ Toxic Vacuolation PRESENT Laboratory Tests Test 05/31/17 11:42 05/31/17 18:40 06/01/17 08:07 06/01/17 12:40 Blood Urea Nitrogen 21 MG/DL 22 MG/DL 24 MG/DL Creatinine 2.13 MG/DL 2.52 MG/DL 3.35 MG/DL Random Glucose 315 MG/DL 334 MG/DL 295 MG/DL Calcium Level 8.6 MG/DL 8.4 MG/DL 7.5 MG/DL Phosphorus Level 2.0 MG/DL Magnesium Level 1.6 MG/DL Sodium Level 139 MEQ/L 137 MEQ/L 137 MEQ/L Potassium Level 4.8 MEQ/L 5.0 MEQ/L 5.3 MEQ/L Chloride Level 99 MEQ/L 99 MEQ/L 102 MEQ/L Carbon Dioxide Level 28.3 MEQ/L 25.3 MEQ/L 19.6 MEQ/L Anion Gap 12 MEQ/L 13 MEQ/L 15 MEQ/L Estimat Glomerular Filtration Rate 23 ML/MIN 19 ML/MIN 14 ML/MIN Total Creatine Kinase 2725 U/L 3152 U/L Creatine Kinase MB 4.3 NG/ML 4.5 NG/ML Creatine Kinase MB % 0.2 % 0.1 % Total Protein 6.5 GM/DL Albumin 1.5 GM/DL Alkaline Phosphatase 80 U/L Aspartate Amino Transf (AST/SGOT) 233 U/L Alanine Aminotransferase (ALT/SGPT) 69 U/L Total Bilirubin 0.3 MG/DL C-Reactive Protein 34.80 MG/DL Random Cortisol 17.5 MCG/DL Microbiology Date/Time Source Procedure Growth Status 06/01/17 12:08 Blood Peripheral Blood Fungal Culture Pending Received 06/01/17 12:08 Blood Peripheral Blood Fungal Culture Pending Received 05/30/17 17:02 Blood Peripheral Aerobic Blood Culture - Preliminary NO GROWTH IN 2 DAYS Resulted 05/30/17 17:02 Blood Peripheral Anaerobic Blood Culture - Preliminary NO GROWTH IN 2 DAYS Resulted 05/30/17 16:00 Blood Peripheral Aerobic Blood Culture - Preliminary NO GROWTH IN 2 DAYS Resulted 05/30/17 16:00 Blood Peripheral Anaerobic Blood Culture - Preliminary NO GROWTH IN 2 DAYS Resulted 06/01/17 14:35 Cerebral Spinal Fluid Lumbar Puncture Fungal Smear - Final NO FUNGAL ELEMENTS SEEN. Resulted 06/01/17 14:35 Cerebral Spinal Fluid Lumbar Puncture Fungal Culture Pending Resulted 06/01/17 14:35 Cerebral Spinal Fluid Lumbar Puncture Acid Fast Stain Pending Received 06/01/17 14:35 Cerebral Spinal Fluid Lumbar Puncture Mycobacterial Culture Pending Received 06/01/17 14:35 Cerebral Spinal Fluid Lumbar Puncture Gram Stain - Final Resulted 06/01/17 14:35 Cerebral Spinal Fluid Lumbar Puncture CSF Culture - Preliminary NO GROWTH IN 24 HOURS. Resulted 06/01/17 03:50 Sputum Endotracheal Gram Stain - Final Resulted 06/01/17 03:50 Sputum Endotracheal Sputum Culture Pending Resulted 05/30/17 13:30 Urine Catheterized Urine Urine Culture - Final NO GROWTH IN 48 HOURS. Complete Imaging Last Impressions Liver Ultrasound 05/21/17 0000 Signed Impressions: Service Date/Time: Sunday, May 21, 2017 10:32 - CONCLUSION: 1. Hepatic steatosis. 2. Gallstones 3. Limited evaluation of the right kidney. Santana Lamar MD Chest X-Ray 05/21/17 0000 Signed Impressions: Service Date/Time: Sunday, May 21, 2017 06:17 - CONCLUSION: 1. Limited suboptimal study with motion artifact. 2. No definite acute cardiac pulmonary disease. Austin Orellana MD Head CT [id number] Signed Impressions: Service Date/Time: Saturday, May 20, 2017 19:55 - CONCLUSION: 1. No acute findings. Retention cyst right maxillary sinus. Jakob Scruggs MD Physical Exam GENERAL: Obese patient. SKIN: No rashes. Ecchymosis noted. HEAD: Atraumatic. Normocephalic. No temporal or scalp tenderness. EYES: Pupils equal round and reactive. Extraocular motions intact. No scleral icterus. No injection or drainage. ENT: Nose without bleeding, purulent drainage or septal hematoma. Throat without erythema, tonsillar hypertrophy or exudate. Uvula midline. Airway patent. NECK: Large neck, intubated. CARDIOVASCULAR: Regular rate and rhythm without murmurs. RESPIRATORY: Breath sounds equal bilaterally. Occ Wheezing noted. Noted anteriorly. GASTROINTESTINAL: Abdomen soft, non-tender, nondistended. Obese. MUSCULOSKELETAL: Extremities without clubbing, cyanosis. Significant swelling bilateral LE upto knees pitting edema. Some erythema noted, minimal warmth. Some scabs noted R> L LE. NEUROLOGICAL: Off sedation, but not opening eyes spontaneously, moves extremities on painful stimuli both upper and lower extremities. Psych cooperative IV line sites with no e/o infection. Assessment & Plan Remarks Septic Shock with MODS HCAP/plus aspiration pneumonia. 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 Strep Grp B bacteremia sources: ? GI, skin as source. Bilateral R> L LE cellulitis: improved. Acute renal failure UO improving. Acute resp failure: pulm edema,aspiration PNA, sleep apnea. Elevated CK: ? infective myositis related to discitis. Abnormal LFTs: sepsis related, ? rhabdo elevated CK. HTN DM2 uncontrolled. Obesity BMI 49.7 kg/m2 Recs: Continue Ceftriaxone IV q12 for possible meningitis/epidural abscess. Continue Zerbaxa IV (ASP: concern for ESBL as pt has been on Cephalosporins, also HCAP in hospital concern for MDR PSAE) Continue Micafungin IV (for possible fungemia, risk factor has been on broad spectrum antibiotics) Continue Flagyl IV for now (GI abscess and aspiration coverage) Continue Zyvox IV (for empiric MRSA coverage for PNA). Would like to avoid Vanco IV due to ARF and also Dapto due to lung processes. 2D ECHO reviewed with no vegetations. STEVEN planned for today. Repeat MRI L spine was non contrast. Radiologist recommends repeat with contrast but in view of acute renal failure cannot order with contrast. WBC scan was negative but was after several days of effective therapy. On comparison of both images no worsening on repeat imaging, no abscess or myositis but of course contrast study would have been better. Repeat MRI brain with multiple new emboli ? septic [employer] emboli. CT chest with PNA. reviewed by me. CT A/P without contrast: ? abd abscess. Gen Surg consulted d/w PA: possible IR drainage, possible repeat imaging with oral contrast. Await input. Follow repeat winslow cultures. Follow clinically. Critical thinking and decision making. d/w RN, . Rod.w pts spouse in room change in condition and above new plan for the day. Critical thinking and decision making. Time spent in excess of 40 mins. covering for me this weekend. Addendum: Case gt Davis patients medical care provider by [facility]: Patient last PCP follow up was Apr 2016. Non compliance with follow ups. GI routine screening colonoscopy planned but never done. [phone]: [facility] Emergency care management HUB to request a physician to physician call. bdc manager to bdc managerpe manager for outside facility is Jenny Cobb Nan Portillo MD Jun 02, 2017 10:25
--- NOTE | 2017-06-02 10:49 | PD.CONS ---
cc: Austin High MD [facility] Service General Surgery Consult Requested By Dr. Mane Portillo Reason for Consult Possible intra-abdominal abscess visualized on CT abd/pelvis Primary Care Physician No Primary Care Physician History of Present Illness This is a 66-year-old female with a past medical history of diabetes mellitus and hypertension. The patient was admitted on May 20. On this day, she woke up with bad sciatica pain and her took her to a chiropractor for an adjustment. After the adjustment, the patient had shivers and the chiropractor suggested the patient to the emergency department. The patient went to an urgent care and was given a steroid injection in her hip. The took the patient home after the injection and the patient rested in bed for about 4 hours. When the went to wake the patient, the patient was drowsy and confused. This is not her normal behavior. After several attempts to wake the patient, the called [facility] and the patient was transported to the emergency department. The patient has an extensive hospitalization and was found to have pneumonia. She is also encephalopathic secondary to a [employer] infection versus toxic metabolic syndrome. The patient is positive for strep bacteria. Infectious disease has been following the patient since May 23. The patient's hospitalization is complicated by respiratory failure in need of oral intubation and mechanical ventilation. In the last 24 hours, an MRI of the brain was completed which showed new emboli and possible septic emboli. In the past 24-48 hours the patient has been febrile with a temperature max of 103. The patient is scheduled to have a STEVEN today at the bedside. Yesterday, a CT abdomen and pelvis was obtained which it is questionable for a abscess in the anterior pelvis. A General Surgery consultation has been requested for evaluation of abscess. Review of Systems ROS Limitations: Intubated Past Family Social History Past Medical History Diabetes mellitus with well-controlled sugars at home Hypertension Past Surgical History Hysterectomy Reported Medications Hydrochlorothiazide Metformin NovoLog Glimepriride Multivitamins Allergies: Coded Allergies: No Known Allergies (Unverified , 05/20/17) Active Ordered Medications Current Medications Medications (Trade) Dose Ordered Sig/Erasmo Route Start Time Stop Time Status Last Admin (Heparin Inj) 5,000 units Q8H SQ 05/20/17 22:00 Future hold 06/02/17 04:16 Miscellaneous Information 1 Q361D XX 05/20/17 22:30 (Chlorhexidine 2% Cloth) Taper DAILY@04 TOP 05/21/17 04:00 05/17/18 03:59 06/02/17 03:59 (Chlorhexidine 2% Cloth) 3 pack UNSCH PRN TOP 05/20/17 22:30 (Tylenol) 650 mg Q6H PRN PO 05/21/17 01:30 (Duoneb Neb) 1 ampule Q2HR NEB PRN NEB 05/21/17 05:45 06/01/17 20:50 (D50w (Vial) Inj) 50 ml UNSCH PRN IV PUSH 05/22/17 07:30 (Glucagon Inj) 1 mg UNSCH PRN OTHER 05/22/17 07:30 (NS Flush) 2 ml UNSCH PRN IV FLUSH 05/24/17 12:15 05/31/17 10:37 (NS Flush) 2 ml BID IV FLUSH 05/24/17 21:00 06/02/17 08:11 (Narcan Inj) 0.4 mg UNSCH PRN IV PUSH 05/24/17 12:15 (May-Colace) 1 tab BID PO 05/24/17 21:00 06/02/17 08:09 (Milk Of Magnesia Liq) 30 ml Q12H PRN PO 05/24/17 12:15 05/24/17 13:45 (Senokot) 17.2 mg Q12H PRN PO 05/24/17 12:15 (Dulcolax Supp) 10 mg DAILY PRN RECTAL 05/24/17 12:15 (Lactulose Liq) 30 ml DAILY PRN PO 05/24/17 12:15 Ceftriaxone Sodium 2000 mg/ Sodium Chloride 100 ml @ 200 mls/hr Q12H IV 05/25/17 17:00 06/02/17 04:15 (Dilantin Inj) 100 mg Q8HR IV 05/26/17 22:00 06/02/17 04:15 (Mycostatin Powder) 1 applic Q12HR TOPICAL 05/30/17 10:00 05/31/17 21:00 Linezolid 300 ml @ 300 mls/hr Q12H IV 05/30/17 13:00 06/02/17 00:02 (Tylenol Supp) 650 mg Q6H PRN RECTAL 05/30/17 13:15 05/30/17 14:06 (Pepcid Inj) 10 mg Q12HR IV PUSH 05/31/17 21:00 06/02/17 08:07 (Ofirmev 1000 Mg/ 100 ml Inj) 1,000 mg Q6H PRN IV 05/31/17 16:30 05/31/17 16:51 Midazolam HCl 100 ml @ 2 mls/hr TITRATE PRN IV 05/31/17 22:45 06/02/17 02:36 Vasopressin 40 units/Dextrose 100 ml @ 6 mls/hr [id number] IV 06/01/17 05:21 06/01/17 13:20 Micafungin Sodium 150 mg/Sodium Chloride 100 ml @ 100 mls/hr Q24H IV 06/01/17 08:00 06/02/17 08:10 Ceftolozane/ Tazobactam 375 mg/ Sodium Chloride 100 ml @ 100 mls/hr Q8H IV 06/01/17 09:00 06/02/17 08:10 Sodium Chloride 1,000 ml @ 100 mls/hr Q10H IV 06/01/17 11:00 06/02/17 08:07 (SoluCORTEF INJ) 50 mg Q6HR IV PUSH 06/01/17 12:15 06/02/17 04:16 Insulin Human Regular 100 units/ Sodium Chloride 100 ml @ 3 mls/hr TITRATE PRN IV 06/01/17 11:45 06/02/17 10:24 (D50w (Vial) Inj) 50 ml UNSCH PRN IV PUSH 06/01/17 11:45 Norepinephrine Bitartrate 8 mg/ Sodium Chloride 250 ml @ 37.5 mls/hr TITRATE PRN IV 06/01/17 13:00 06/01/17 23:09 Levetriacetam 750 mg/Sodium Chloride 107.5 ml @ 430 mls/hr Q12HR IV 06/01/17 21:00 06/02/17 08:09 Metronidazole 100 ml @ 100 mls/hr Q8H IV 06/01/17 22:00 06/02/17 04:15 Family History Noncontributory Social History Negative for tobacco use Negative for EtOH use Negative for illicit drug use Patient lives with . Physical Exam Vital Signs Vital Signs Date Time Temp Pulse Resp B/P (MAP) Pulse Ox O2 Delivery O2 Flow Rate FiO2 06/02/17 10:28 92 50 06/02/17 10:21 87 138/64 06/02/17 10:16 87 192/58 06/02/17 10:00 83 06/02/17 10:00 83 156/131 06/02/17 08:22 91 141/83 06/02/17 08:00 90 06/02/17 08:00 99.8 90 30 114/56 (75) 94 141/82 (101) 06/02/17 08:00 100 Mechanical Ventilator 50 06/02/17 08:00 50 06/02/17 07:00 84 138/80 06/02/17 07:00 84 138/80 06/02/17 06:00 84 06/02/17 06:00 84 120/60 (80) 133/79 (97) 06/02/17 04:27 93 50 06/02/17 04:10 86 137/82 06/02/17 04:00 99.4 85 26 128/60 (82) 93 135/82 (99) 06/02/17 04:00 50 06/02/17 04:00 85 06/02/17 04:00 93 Mechanical Ventilator 50 06/02/17 04:00 85 135/82 06/02/17 04:00 85 06/02/17 02:30 67 240/115 06/02/17 02:20 83 158/86 06/02/17 02:10 85 160/89 06/02/17 02:00 85 06/02/17 02:00 85 160/91 06/02/17 00:20 96 146/95 06/02/17 00:10 95 141/94 06/02/17 00:06 95 50 06/02/17 00:00 92 06/02/17 00:00 92 135/90 06/02/17 00:00 96 Mechanical Ventilator 50 06/02/17 00:00 92 06/02/17 00:00 50 06/02/17 00:00 99.4 92 16 146/65 (92) 93 135/90 (105) 06/01/17 23:50 92 135/93 06/01/17 23:40 94 130/89 06/01/17 23:20 91 141/78 06/01/17 23:09 91 137/65 06/01/17 23:00 93 137/69 06/01/17 22:54 90 134/72 06/01/17 22:50 92 123/79 06/01/17 22:40 92 127/71 06/01/17 22:30 96 100/60 06/01/17 22:20 92 128/62 06/01/17 22:10 91 163/69 06/01/17 22:00 93 06/01/17 22:00 93 171/72 06/01/17 21:50 89 146/76 06/01/17 21:40 89 143/77 06/01/17 21:30 88 139/75 06/01/17 21:20 87 136/78 06/01/17 21:10 87 120/76 06/01/17 21:00 99.3 86 16 140/63 (88) 95 121/80 (94) 06/01/17 21:00 86 06/01/17 21:00 86 121/80 06/01/17 20:45 96 60 06/01/17 20:00 98 Mechanical Ventilator 60 06/01/17 20:00 60 06/01/17 20:00 96 06/01/17 19:00 99 152/77 06/01/17 18:45 100 100 06/01/17 18:14 89 148/84 06/01/17 18:14 89 148/84 06/01/17 18:00 97 06/01/17 18:00 97 104/55 (71) 97/62 (74) 06/01/17 17:16 92 112/95 06/01/17 16:42 92 83/52 06/01/17 16:00 100.5 93 35 109/52 (71) 98 132/54 (80) 06/01/17 16:00 93 06/01/17 16:00 98 Mechanical Ventilator 60 06/01/17 15:27 99 60 06/01/17 14:00 97 06/01/17 13:30 99 134/44 06/01/17 13:20 101 151/51 06/01/17 13:13 97 116/41 11/2/17 12:00 96 06/01/17 12:00 100 Mechanical Ventilator 60 06/01/17 12:00 99.3 96 36 83/44 (57) 100 143/49 (80) 06/01/17 11:12 100 60 Physical Exam GENERAL: Critically ill 66 year old female orally intubated on mechanical ventilation. SKIN: Warm/dry; BLE: with evidence of healing cellulitis and areas of superficial abrasions. Grimacing when touching BLE. HEAD: Atraumatic. Normocephalic. EYES: Pupils equal and round. No scleral icterus. No injection or drainage. ENT: No nasal bleeding or discharge. Mucous membranes pink and moist. NECK: Trachea midline. CARDIOVASCULAR: Regular rate and rhythm. RESPIRATORY: No accessory muscle use. Clear to auscultation. Some rhonchi in bilateral lung bases. GASTROINTESTINAL: Abdomen soft, nondistended. Obese abdomen. Some grimacing with palpation. No visible scars or hernias. MUSCULOSKELETAL: Extremities without clubbing, cyanosis, or edema. No obvious deformities. NEUROLOGICAL: Unable to examine---Intubated/Sedated PSYCHIATRIC: Unable to examine--- Intubated/Sedated Laboratory Laboratory Tests Test 06/01/17 11:50 06/01/17 12:40 06/01/17 14:35 06/01/17 15:28 Prothrombin Time 17.2 Prothromb Time International Ratio 1.5 Activated Partial Thromboplast Time 37.3 Random Cortisol 17.5 CSF Volume (Tube 1) 3.8 CSF Supernatant Color (tube 1) CLEAR CSF Gross Blood (Tube 1) TRACE CSF WBC (Tube 1) 217 CSF RBC (Tube 1) 398 CSF Volume (Tube 2) 3.0 CSF Supernatant Color (tube 2) CLEAR CSF Gross Blood (Tube 2) TRACE CSF Volume (Tube 3) 3.0 CSF Supernatant Color (tube 3) CLEAR CSF Gross Blood (Tube 3) TRACE CSF Volume (Tube 4) 4.5 CSF Supernatant Color (tube 4) CLEAR CSF Gross Blood (Tube 4) TRACE CSF Neutrophils 90 CSF Lymphocytes 8 CSF Monocytes 2 CSF Glucose 196 CSF Lactic Acid 5.0 CSF Total Protein 67.9 Herpes Simplex Virus I DNA (PCR) Negative Herpes Simplex Virus II DNA (PCR) Negative Blood Gas Puncture Site ART LINE Blood Gas Patient Temperature 98.6 Blood Gas HCO3 18 Blood Gas Base Excess -7.5 Blood Gas Oxygen Saturation 94 Arterial Blood pH 7.31 Arterial Blood Partial Pressure CO2 36 Arterial Blood Partial Pressure O2 87 Arterial Blood Oxygen Content 13.8 Arterial Blood Carboxyhemoglobin 0.5 Arterial Blood Methemoglobin 1.3 Blood Gas Hemoglobin 10.4 Oxygen Delivery Device VENTILATOR Blood Gas Ventilator Setting PRVC/AC 500/16 Blood Gas Inspired Oxygen 60 Date/Time Source Procedure Growth Status 06/01/17 12:08 Blood Peripheral Blood Fungal Culture Pending Received 06/01/17 12:08 Blood Peripheral Blood Fungal Culture Pending Received 06/01/17 14:35 Cerebral Spinal Fluid Lumbar Puncture Fungal Smear - Final NO FUNGAL ELEMENTS SEEN. Resulted 06/01/17 14:35 Cerebral Spinal Fluid Lumbar Puncture Fungal Culture Pending Resulted 06/01/17 03:50 Sputum Endotracheal Gram Stain - Final Resulted 06/01/17 03:50 Sputum Endotracheal Sputum Culture Pending Resulted 05/30/17 13:30 Urine Catheterized Urine Urine Culture - Final NO GROWTH IN 48 HOURS. Complete Result Diagram: 06/01/17 0806/01/17 0807 Imaging Last 48 hours Impressions Lumbar Spine MRI 06/01/17 0000 Signed Impressions: Service Date/Time: May 19:15 - CONCLUSION: 1. Atypical signal changes remain in the L3-4 disc and adjacent endplates The findings remain nonspecific. There is a moderate size posterior central epidural mass with mass effect on the anterior thecal sac. There is moderate central canal stenosis. The differential diagnosis includes disc protrusion versus small epidural abscess. A contrast enhanced lumbar spine study may be helpful for further evaluation. 2. Mild disc bulges at L2-3 and L4-5 levels with mild flattening the anterior thecal sac. Austin Orellana MD Chest CT 06/01/17 0000 Signed Impressions: Service Date/Time: May 18:49 - CONCLUSION: 1. Dense consolidation in both posterior lower lobes right greater than left with air bronchograms. This could represent pneumonia. 2. Small bilateral pleural effusions. 3. Mild cardiomegaly. Austin Orellana MD Brain MRI 06/01/17 0000 Signed Impressions: Service Date/Time: May 19:15 - CONCLUSION: 1. Multiple new small scattered punctate areas of restricted diffusion consistent with small areas of infarction. This could be secondary to emboli. 2. No acute hemorrhage or mass effect. 3. Acute sinusitis in the ethmoidal air cells and sphenoid sinus with air fluid levels. Austin Orellana MD Abdomen/Pelvis CT 06/01/17 0000 Signed Impressions: Service Date/Time: May 18:49 - CONCLUSION: 1. Suboptimal opacification of the bowel with the distal small bowel unopacified. There is a questionable abnormal gas collection in the anterior lower pelvis. An abscess is not excluded. A repeat study is recommended after additional oral contrast is given. 2. Consolidation in both posterior lung bases with small pleural effusions. Austin Orellana MD Assessment and Plan Assessment and Plan 66 year old female critically ill with VDRF, with possible septic emboli scheduled for STEVEN today; septic shock; BLE cellulitis -IR consult for CT guided abscess drainage -Culture drainage -NPO -ID following -[facility] following -Thank you for this consult; We will continue to follow Attending Note - Dr. High Abdomen is benign; repeat CT with contrast shows no evidence abscess No drainage/surgery needed. STEVEN showed no vegetations. Need to look for other source of infection. The exam, history, and the medical decision-making described in the above note were completed with the assistance of the mid-level provider. I reviewed and agree with the findings presented. I attest that I had a [id number] encounter with the patient on the same day, and personally performed and documented my assessment and findings in the medical record. Discussed Condition With Dr. Lennox Plunkett RN Mr. Crockett ( at bedside) Shanell Moran Jun 02, 2017 10:49 Austin High MD Jun 06, 2017 18:17
[2017-06-02] MEDS: VASOPRESSIN INJ 40 UNITS in DEXTROSE 5% IN WATER 100ML INJ 98 ML IV SCH ×2 (11:05)
[2017-06-02 11:44] LABS: AUTOMATED NEUTROPHIL # 9.4 TH/MM3 (1.8-7.7); BASOPHIL # 0.2 TH/MM3 (0-0.2); BASOPHIL % 1.3 % (0.0-2.0); EOSINOPHIL # 0.1 TH/MM3 (0-0.4); EOSINOPHIL % 1.1 % (0.0-4.0); HEMATOCRIT 29.4 % (35.0-46.0); LYMPH % 9.3 % (9.0-44.0); LYMPHOCYTE # 1.1 TH/MM3 (1.0-4.8); MEAN CELL VOLUME 91.3 FL (80.0-100.0); MEAN CORPUSCULAR HEMOGLOBIN 28.9 PG (27.0-34.0); MEAN CORPUSCULAR HGB CONC 31.6 % (32.0-36.0); MONO % 8.6 % (0.0-8.0); NEUT % 79.7 % (16.0-70.0); PLATELET COUNT 138 TH/MM3 (150-450); RED BLOOD COUNT 3.22 MIL/MM3 (4.00-5.30); RED CELL DISTRIBUTION WIDTH 16.2 % (11.6-17.2); WHITE BLOOD COUNT 11.8 TH/MM3 (4.0-11.0)
[2017-06-02 11:46] LABS: HEMO FLAGS AUTO DIFF
[2017-06-02 11:50] LABS: BICARBONATE 21.5 MEQ/L (21.0-32.0); POTASSIUM 3.4 MEQ/L (3.5-5.1); TOTAL BILIRUBIN ADULT 0.3 MG/DL (0.2-1.0)
[2017-06-02 11:53] LABS: CALCIUM-PROTEIN CORRECTED 7.4 MG/DL (8.5-10.1)
[2017-06-02 11:58] LABS: APTT (PATIENT) 34.5 SEC (24.3-30.1); INTERNATIONAL NORMALIZED RATIO 1.6 RATIO
--- NOTE | 2017-06-02 12:22 | HHI.NPPN ---
Subjective History of Present Illness 66 year old female with Sepsis, possible Meningitis/Discitis, ARF Additional Remarks intubated Objective Data Data 06/02/17 06/03/17 19:00 07:00 Intake Total 1366 ml Balance 1366 ml IV Total 1366 ml Vital Signs Date Time Temp Pulse Resp B/P (MAP) Pulse Ox O2 Delivery O2 Flow Rate FiO2 06/02/17 11:05 87 144/49 06/02/17 10:28 92 50 06/02/17 10:21 87 138/64 06/02/17 10:16 87 192/58 06/02/17 10:00 83 06/02/17 10:00 83 156/131 06/02/17 08:22 91 141/83 06/02/17 08:00 90 06/02/17 08:00 99.8 90 30 114/56 (75) 94 141/82 (101) 06/02/17 08:00 100 Mechanical Ventilator 50 06/02/17 08:00 50 06/02/17 08:00 90 114/56 (75) 141/82 (101) 06/02/17 07:00 84 138/80 06/02/17 07:00 84 138/80 06/02/17 06:00 84 06/02/17 06:00 84 120/60 (80) 133/79 (97) 06/02/17 04:27 93 50 06/02/17 04:10 86 137/82 06/02/17 04:00 99.4 85 26 128/60 (82) 93 135/82 (99) 06/02/17 04:00 50 06/02/17 04:00 85 06/02/17 04:00 93 Mechanical Ventilator 50 06/02/17 04:00 85 135/82 06/02/17 04:00 85 06/02/17 02:30 67 240/115 06/02/17 02:20 83 158/86 06/02/17 02:10 85 160/89 06/02/17 02:00 85 06/02/17 02:00 85 160/91 06/02/17 00:20 96 146/95 06/02/17 00:10 95 141/94 06/02/17 00:06 95 50 06/02/17 00:00 92 06/02/17 00:00 92 135/90 06/02/17 00:00 96 Mechanical Ventilator 50 06/02/17 00:00 92 06/02/17 00:00 50 06/02/17 00:00 99.4 92 16 146/65 (92) 93 135/90 (105) 06/01/17 23:50 92 135/93 06/01/17 23:40 94 130/89 06/01/17 23:20 91 141/78 06/01/17 23:09 91 137/65 06/01/17 23:00 93 137/69 06/01/17 22:54 90 134/72 06/01/17 22:50 92 123/79 06/01/17 22:40 92 127/71 06/01/17 22:30 96 100/60 06/01/17 22:20 92 128/62 06/01/17 22:10 91 163/69 06/01/17 22:00 93 06/01/17 22:00 93 171/72 06/01/17 21:50 89 146/76 06/01/17 21:40 89 143/77 06/01/17 21:30 88 139/75 06/01/17 21:20 87 136/78 06/01/17 21:10 87 120/76 06/01/17 21:00 99.3 86 16 140/63 (88) 95 121/80 (94) 06/01/17 21:00 86 06/01/17 21:00 86 121/80 06/01/17 20:45 96 60 06/01/17 20:00 98 Mechanical Ventilator 60 06/01/17 20:00 60 06/01/17 20:00 96 06/01/17 19:00 99 152/77 06/01/17 18:45 100 100 06/01/17 18:14 89 148/84 06/01/17 18:14 89 148/84 06/01/17 18:00 97 06/01/17 18:00 97 104/55 (71) 97/62 (74) 06/01/17 17:16 92 112/95 06/01/17 16:42 92 83/52 06/01/17 16:00 100.5 93 35 109/52 (71) 98 132/54 (80) 06/01/17 16:00 93 06/01/17 16:00 98 Mechanical Ventilator 60 06/01/17 15:27 99 60 06/01/17 14:00 97 06/01/17 13:30 99 134/44 06/01/17 13:20 101 151/51 06/01/17 13:13 97 116/41 -: 06/02/17 0946 06/02/17 0946 Microbiology 06/01/17 Fungal Smear - Final, Resulted NO FUNGAL ELEMENTS SEEN. 06/01/17 Fungal Culture, Resulted Pending 06/01/17 Acid Fast Stain, Received Pending 06/01/17 Mycobacterial Culture, Received Pending 06/01/17 Gram Stain - Final, Resulted 06/01/17 CSF Culture - Preliminary, Resulted NO GROWTH IN 24 HOURS. Physical Exam General Appearance: Well Developed, Obese Neck Neck Exam: Neck Supple Pulmonary Resp Exam: Decreased Bases Cardiology CV Exam: Tachycardia Gastrointestinal/Abdomen GI Exam: Soft, Non-Tender, Bowel Sounds Present Extremeties Extremities Exam: Moderate Edema Assessment/Plan Problem List: (1) Acute renal failure ICD Codes: N17.9 - Acute kidney failure, unspecified Status: Acute Plan: Patient has septic shock and low blood pressure which can cause acute tubular necrosis I reviewed kidney ultrasound cyst but no hydro Urine lytes consistent with ATN intubated CPK high Rhabdo possible seizure? STEVEN today K low replace Cr declined 1.56 good UOP 2.5 L IVF NS at 100 cc/hr Continue supportive care check CBC,CMP,Mg, PO4 in am Avoid nephrotoxins (2) Septic shock ICD Codes: A41.9 - Sepsis, unspecified organism; R65.21 - Severe sepsis with septic shock Plan: Patient is on broad-spectrum antibiotics. Infectious disease is following the patient she's getting Zyvox, Ceftolozane, metronidazole,Micafungin (3) Bacteremia due to group B Streptococcus ICD Codes: R78.81 - Bacteremia Plan: She does have streptococcal infection (4) SIRS (systemic inflammatory response syndrome) ICD Codes: R65.10 - Systemic inflammatory response syndrome (SIRS) of non- infectious origin without acute organ dysfunction Status: Acute Plan: Critical care is following (5) Acute hypercapnic respiratory failure ICD Codes: J96.02 - Acute respiratory failure with hypercapnia Plan: On O2 (6) Diabetes ICD Codes: E11.9 - Type 2 diabetes mellitus without complications Status: Acute Plan: Continue to monitor blood glucose Problem Qualifiers (1) Acute renal failure: Qualified Codes: N17.9 - Acute kidney failure, unspecified (2) Diabetes: Roberto Cabrera MD Jun 02, 2017 12:22
--- NOTE | 2017-06-02 12:52 | MB ---
cc: ALBERTO FRENCH DO DATE OF CONSULTATION 06/02/2017 REASON FOR CONSULTATION Consideration of STEVEN. HISTORY OF PRESENT ILLNESS Sharon Crockett is a 66-year-old female who originally presented to [facility] on May 20, 2017 due to confusion and lethargy. She and her are down visiting for the past three months. She was having back pain and she was seen by her chiropractor for an adjustment and then was referred to an Urgent Care where she reportedly had a nonsteroidal injection. The patient went home and was drowsy so she sat in a chair and fell asleep. He tried to wake her around 4:30 and noticed that she was confused and lethargic. Apparently he attempted to wake her up over the next two to three hours and was unable to so he finally called EMS. On arrival here, apparently she was on BiPap and awake over the next few days. Then earlier this week, she had worsening hypoxia and eventually was intubated. She had an MRI of her back which showed concern for possible diskitis as well as a brain MRI which showed scattered punctate areas of restricted effusion consistent with small areas of infarction secondary to possible emboli. Because of this, I was asked to see her for consideration of STEVEN. PAST MEDICAL HISTORY 1. Diabetes 2. Dyslipidemia 3. Hypertension 4. Chronic back pain 5. Chronic lower extremity swelling PAST SURGICAL HISTORY ALLERGIES NO KNOWN DRUG ALLERGIES. MEDICATIONS 1. Lisinopril/hydrochlorothiazide 10/12.5 daily 2. Metformin 1000 mg b.i.d. 3. Insulin 70/30 b.i.d. 4. Glimepiride 1 mg daily FAMILY HISTORY Denies premature coronary artery disease or sudden cardiac within the family. SOCIAL HISTORY The patient lives in [place], but has been visiting [place] for two to three months. Denies tobacco, alcohol or drugs. REVIEW OF SYSTEMS Unable to do at this time due to the patient's current condition. PHYSICAL EXAMINATION VITAL SIGNS: Temperature 99.8, heart rate 90, blood pressure 114/56, respirations 30, pulse ox 100% on the ventilator. GENERAL: The patient is currently on the ventilator off sedation. HEAD, EYES, EARS, NOSE, AND THROAT: Pupils are equal, round and reactive. ET tube in place. HEART: Regular rate and rhythm. Positive first and second heart sounds with no murmurs, gallops or rubs. LUNGS: Decreased breath sounds bilaterally but no overt wheezes, rales or rhonchi. ABDOMEN: Soft, nontender, nondistended. Obese. EXTREMITIES: Show 1-2+ pitting edema bilaterally. NEUROLOGIC: Currently off sedation moving extremities to painful stimuli. SKIN: Warm, dry and intact. OSTEOPATHIC: Mild lordosis. No kyphoscoliosis or paraspinal tender points. LABORATORY FINDINGS Hemoglobin 10.8, hematocrit 34.8, platelets 182. Potassium 5.3, BUN 24, creatinine 3.35. IMPRESSION 1. Septic shock requiring pressor therapy 2. Multiorgan system dysfunction 3. Acute encephalopathy 4. MRI showing a concern for possible emboli 5. Questionable diskitis on MRI of the back 6. Acute kidney injury 7. Strep bacteremia with positive blood cultures on arrival 8. Vent dependent respiratory failure 9. Morbid obesity 10. Diabetes mellitus RECOMMENDATIONS 1. Because of the patient's positive blood cultures and MRI showing concern for multiple areas of possible infarction, possibly secondary to emboli, I discussed with the for consideration of STEVEN. 2. The risks, benefits and alternatives were explained to him and he consents as such. 3. We will plan on doing this this afternoon while she is intubated. 4. Further recommendations after STEVEN. 5. Due to her higher risk of possible endocarditis, I feel that we should cancel the transthoracic echo as I think that it will a difficult evaluation due to her body habitus. Thank you for allowing me to see Sharon Crockett. If there are any questions, please do not hesitate to call. Alberto French DO VGP/DJL /10:56 AM /12:37 PM MTDRod
[2017-06-02 13:19] LABS: BANDS 21 % (0-6); BASOPHILS 2 % (0-2); EOSINOPHILS 1 % (0-4); METAMYELOCYTES 1 % (0-1); MYELOCYTES 2 % (0-0); NEUTROPHIL # MANUAL DIFF 10.4 TH/MM3 (1.8-7.7); PLATELET ESTIMATE SMEAR LOW (NORMAL); PLATELET MORPHOLOGY NORMAL (NORMAL); POLYS (SEG NEUTROPHILS) 64 % (16-70); SCAN/DIFF FINAL DIFF MANUAL; WBC DIFF SAMPLE 100
[2017-06-02 13:20] LABS: TOXIC VACUOLATION PRESENT (NONE SEEN)
[2017-06-02] MEDS ORDERED: DIATRIZOATE MEGLUM/DIATRIZOATE SOD 9 ML CUP PO ONE (13:45)
[2017-06-02] MEDS: POTASSIUM CHLOR 20 MEQ PREMIX 100 ML IV SCH ×2 (13:56→15:42)
--- NOTE | 2017-06-02 14:47 | PD.WCN.NOT ---
Wound Consult Description: Received consult from Doctor Campbell for pressure ulcer to sacral area Communicated with: SHANNON Adam [facility] and Doctor Anthony Recommendation: 1.Please cleanse skin tear to R lateral leg with normal saline or wound cleanser and pat dry before applying Xeroform in a single later just over wound bed and cover with dry 4x4 gauze pad, secured with rolled gauze and tape. Change dressing every other day or PRN if saturated or dislodged 2.Cleanse deep tissue injury to sacrococcygeal area and bilateral buttock with soap and water and pat dry. Apply thick layer of Calazime barrier cream BID and PRN and leave open to air. Do not scrub Barrier cream from patient's skin when cleaning. Ok to leave some barrier cream in place and layer cream on patient. 3.Turn patient every 2 hours and PRN for comfort and to offload pressure from sacrococcygeal area. Additional Information: Patient seen on 5th floor [facility] around 1315 for evaluation of pressure ulcer, sacral wound.Patient has new skin tear on R lateral leg. Cleansed wound with normal saline and applied Xeroform gauze just over open wound bed and covered with dry 4x4 gauze pads. Secured dressing with rolled gauze and tape. Patient was then positioned with maximum assistance from Kiarra ORTEGA [facility], marketing writer and Christiana ORTEGA, [facility] to R side to reveal purple non blanchable area of discoloration to intact skin on sacrococcygeal and bilateral buttock area, indicating deep tissue injury. Wound is opening to partial thickness skin loss in gluteal cleft area. Entire Deep tissue injury measures 10cm x 7.9cm. Small opened area in gluteal cleft measures~0.5 cm x ~0.2 cm. Cleansed patient of stool with soap and water and pat dry before applying thick layer of Calazime barrier cream and leaving open to air. Patient is laying on WAVE bed from [employer], bed is malfunctioning and new bed has been ordered.Patient positioned off bottom to R side with pillow in place for support. Palak Love [facility] Jun 02, 2017 14:47
--- NOTE | 2017-06-02 15:40 | RADRPT ---
EXAM DATE/TIME: 06/02/2017 15:14 [facility] COMPARISON: CT THORAX W/O CONTRAST, June 01, 2017, 18:49. CHEST SINGLE AP, May 31, 2017, 23:33. INDICATIONS : Evaluate for respiratory failure. MEDICAL HISTORY : Hypertension. Diabetes mellitus type 2. SURGICAL HISTORY : section. ENCOUNTER: Subsequent ACUITY: 2 weeks PAIN SCORE: Non-responsive. LOCATION: Chest FINDINGS: The endotracheal tube appears to be in good position with its tip 3 cm above the oliver. A nasogastr ic tube has its tip below the diaphragm. Cardiomegaly is noted. Perihilar infiltrates are noted cons istent with mild to moderate pulmonary vascular congestion versus pneumonia. Clinical correlation is recommended. A left internal jugular central line has its tip in the superior vena cava. There is no pneumothorax. A small right pleural effusion is noted. CONCLUSION: 1. Cardiomegaly. 2. Perihilar infiltrates consistent with mild to moderate pulmonary vascular congestion versus pneumo dov. 3. Small right pleural effusion. 4. Multiple tubes and lines are stable. Nikita Damon MD on June 02, 2017 at 15:34 Board Certified Radiologist. This report was verified electronically.
--- NOTE | 2017-06-02 15:44 | RADRPT ---
EXAM DATE/TIME: 06/02/2017 15:20 [facility] COMPARISON: No previous studies available for comparison. INDICATIONS : Evaluate for OG tube placement. MEDICAL HISTORY : None. SURGICAL HISTORY : None. ENCOUNTER: Initial ACUITY: 1 day PAIN SCORE: Non-responsive. LOCATION: Abdomen FINDINGS: OG tube is in the stomach. Nonspecific bowel gas pattern. CONCLUSION: OG tube in the stomach. Mike Davis MD FACR on June 02, 2017 at 15:42 Board Certified Radiologist. This report was verified electronically.
--- NOTE | 2017-06-02 17:44 | RADRPT ---
EXAM DATE/TIME: 06/02/2017 17:29 [facility] COMPARISON: No previous studies available for comparison. INDICATIONS : Abnormal prior abdomen/pelvis CT. ORAL CONTRAST: Prescribed oral contrast ingested. RADIATION DOSE: 55.41 CTDIvol (mGy) ; Patient body habitus MEDICAL HISTORY : Hypertension. SURGICAL HISTORY : section. ENCOUNTER: Initial ACUITY: 1 day PAIN SCALE: Non-responsive LOCATION: Bilateral pelvis TECHNIQUE: Volumetric scanning of the pelvis was performed. Using automated exposure control and adjustment of the mA and/or kV according to patient size, radiation dose was kept as low as reasonably achievable t o obtain optimal diagnostic quality images. DICOM format image data is available electronically for review and comparison. FINDINGS: A limited scan of the pelvis was performed for evaluation of possible abscess. The area in question i s confirmed as opacified loops of small bowel. There is no evidence of intra-abdominal abscess collec tion. Therefore, no drainage is required. CONCLUSION: No evidence of intra-abdominal abscess collection. Nikita Damon MD on June 02, 2017 at 17:40 Board Certified Radiologist. This report was verified electronically.
--- NOTE | 2017-06-02 17:50 | HHI.PR ---
Subjective Remarks 66 YOObese WF with Hypercapnoea, Cellulitis, Bactremia Encephalopathic Intubated Sedated On PRC, Fi02 60% Has multiple focus in brain suspicious for septic emboli Objective Vital Signs Vital Signs Date Time Temp Pulse Resp B/P (MAP) Pulse Ox O2 Delivery O2 Flow Rate FiO2 06/02/17 16:00 100 Mechanical Ventilator 50 06/02/17 16:00 60 06/02/17 16:00 86 06/02/17 16:00 86 100/54 (69) 134/51 (78) 06/02/17 16:00 97.1 86 29 100/54 (69) 100 134/51 (78) 06/02/17 14:48 60 06/02/17 14:00 94 06/02/17 13:47 96 118/53 06/02/17 13:47 96 118/53 06/02/17 13:37 94 50 06/02/17 12:00 96 Mechanical Ventilator 50 06/02/17 12:00 90 06/02/17 12:00 99.0 90 28 101/50 (67) 96 123/53 (76) 06/02/17 12:00 50 06/02/17 12:00 90 101/50 (67) 123/53 (76) 06/02/17 11:05 87 144/49 06/02/17 10:28 92 50 06/02/17 10:21 87 138/64 06/02/17 10:16 87 192/58 06/02/17 10:00 83 06/02/17 10:00 83 156/131 06/02/17 08:22 91 141/83 06/02/17 08:00 90 06/02/17 08:00 99.8 90 30 114/56 (75) 94 141/82 (101) 06/02/17 08:00 100 Mechanical Ventilator 50 06/02/17 08:00 50 06/02/17 08:00 90 114/56 (75) 141/82 (101) 06/02/17 07:00 84 138/80 06/02/17 07:00 84 138/80 06/02/17 06:00 84 06/02/17 06:00 84 120/60 (80) 133/79 (97) 06/02/17 04:27 93 50 06/02/17 04:10 86 137/82 06/02/17 04:00 99.4 85 26 128/60 (82) 93 135/82 (99) 06/02/17 04:00 50 06/02/17 04:00 85 06/02/17 04:00 93 Mechanical Ventilator 50 06/02/17 04:00 85 135/82 06/02/17 04:00 85 06/02/17 02:30 67 240/115 06/02/17 02:20 83 158/86 06/02/17 02:10 85 160/89 06/02/17 02:00 85 06/02/17 02:00 85 160/91 06/02/17 00:20 96 146/95 06/02/17 00:10 95 141/94 06/02/17 00:06 95 50 06/02/17 00:00 92 06/02/17 00:00 92 135/90 06/02/17 00:00 96 Mechanical Ventilator 50 06/02/17 00:00 92 06/02/17 00:00 50 06/02/17 00:00 99.4 92 16 146/65 (92) 93 135/90 (105) 06/01/17 23:50 92 135/93 06/01/17 23:40 94 130/89 06/01/17 23:20 91 141/78 06/01/17 23:09 91 137/65 06/01/17 23:00 93 137/69 06/01/17 22:54 90 134/72 06/01/17 22:50 92 123/79 06/01/17 22:40 92 127/71 06/01/17 22:30 96 100/60 06/01/17 22:20 92 128/62 06/01/17 22:10 91 163/69 06/01/17 22:00 93 06/01/17 22:00 93 171/72 06/01/17 21:50 89 146/76 06/01/17 21:40 89 143/77 06/01/17 21:30 88 139/75 06/01/17 21:20 87 136/78 06/01/17 21:10 87 120/76 06/01/17 21:00 99.3 86 16 140/63 (88) 95 121/80 (94) 06/01/17 21:00 86 06/01/17 21:00 86 121/80 06/01/17 20:45 96 60 06/01/17 20:00 98 Mechanical Ventilator 60 06/01/17 20:00 60 06/01/17 20:00 96 06/01/17 19:00 99 152/77 06/01/17 18:45 100 100 06/01/17 18:14 89 148/84 06/01/17 18:14 89 148/84 06/01/17 18:00 97 06/01/17 18:00 97 104/55 (71) 97/62 (74) I/O 06/01/17 06/01/17 06/01/17 06/02/17 06/02/17 06/02/17 07:00 15:00 23:00 07:00 15:00 23:00 Intake Total 3847 ml 3081 ml 36639 ml 1116.5 ml 1657 ml Output Total 100 ml 600 ml 775 ml 1150 ml Balance 3747 ml 2481 ml 50575 ml -33.5 ml 1657 ml Intake Oral 0 ml IV Total 3847 ml 3081 ml 36441 ml 1116.5 ml 1657 ml Tube Irrigant 240 ml Other 999 ml Output Urine Total 100 ml 600 ml 775 ml 1150 ml # Bowel Movements 0 Result Diagram: 06/02/1746 06/02/1746 Objective Remarks GENERAL: Morbidly obese WF, mild sob SKIN: Warm and dry. HEAD: Normocephalic. EYES: No scleral icterus. No injection or drainage. NECK: Supple, trachea midline. No JVD or lymphadenopathy. CARDIOVASCULAR: Regular rate and rhythm without murmurs, gallops, or rubs. RESPIRATORY: Breath sounds equal bilaterally. No accessory muscle use. GASTROINTESTINAL: Abdomen soft, non-tender, nondistended. MUSCULOSKELETAL: No cyanosis, or edema. has swelling and redness of legs BACK: Nontender without obvious deformity. No CVA tenderness. A/P Assessment and Plan Hypercapnoic Resp Insuff CHE or Obesity Hypoventilation synd Cellulitis legs Bactremia back pain Sepsis Encephalopathy PLAN: Vent Support Aerosol nebs Wean 02 to keep sat 88-92% Abx per ID Cont DilantinGoing for intra abd drain Cardiology planning STEVEN Dima Bang MD Jun 02, 2017 17:50
--- NOTE | 2017-06-02 17:50 | PD.CONS ---
HPI History of Present Illness This is a 66 year old female who was brought to the emergency room for evaluation of altered mental status on 05/20. She is currently sedated on the mechanical ventilator and unable to provide any history and therefore the history has been obtained from the EMR and . The reports that they reside in [place] and are here visiting. A few days before her hospitalization, she was having sciatica. Her took her to a chiropractor per her request. However, the chiropractor noted that she had a fever and chills and therefore he referred her to a medical provider. She went to an urgent care center and was noted to have a fever of 103.0. He reports that she was given a steroid injection in her hip for the hip and sciatica pain. She then went home to rest and slept for several hours. When her went to wake her she was lethargic and confused and therefore called [facility] and she was brought to the emergency room. She was hospitalized for pneumonia, encephalopathy, sepsis, bacteremia. Her hospitalization has been complicated by respiratory failure and has required oral intubation and mechanical ventilation. She underwent MRI of the brain, which revealed multiple new small scattered punctate areas of restricted diffusion consistent with small areas of infarction, this could be secondary to emboli. Cardiology was consulted and she had a STEVEN earlier today, which was negative for vegetations. ID is following the patient for her septic shock with multisystem failure, HCAP/Aspiration pneumonia, possible Meningitis/discitis, strep group b bacteremia, bilateral lower extremity cellulitis. She was also evaluated with CT scan without IV contrast (06/01/17)---> Suboptimal opacification of the bowel with the distal small bowel unopacified. There is a questionable abnoraml gas collection in the anterior lower pelvis. An abscess is not excluded. A rpt study is recommended after additional oral contrast is given. Consolidation in both posterior lung bases with small pleural effusions. GS has evaluated the patient and has recommended CT guided drainage/drain placement of intra- abdominal abscess. She is on Flagyl, Zerbaxa, Micafungin, Ceftriaxone, and Zyvox. GI has been consulted for abdominal abscess, questionable diverticulitis , abnormal LFTs. On admission, hte patient had LFTs of T. Bili 0.4, AST 35, ALT 58, ALk Phosph 51. These have increased and are now 0.3, 232, 100, 88. The patient's denies any known history of diverticulitis or liver problems. He states that she has had a colonoscopy within the past 2 years in [place]. She does not drink ETOH. (Evelin Zheng) PFSH Past Medical History Hyperlipidemia HTN DM Sciatica Past Surgical History Hysterectomy (Evelin Zheng) Coded Allergies: No Known Allergies (Unverified , 05/20/17) Medications Allergies Coded Allergies Type Severity Reaction Last Updated Verified No Known Allergies 05/20/17 No Active Scripts Medications Dose Route/Sig Max Daily Dose Days Date Category Dose Instructions Walker with Front Wheels (Device) 1 Mis Mis Ea .ROUTE DIRECTED 05/24/17 Rx Novolog Mix 70-30 Inj (Insulin Aspart Prota 70%/Aspart 30%) 1,000 Unit/10 Ml Vial Unknown Dose SQ BIDAC 05/20/17 Reported Glimepiride 1 Mg Tab Unknown Dose PO DAILY 05/20/17 Reported Take with breakfast or first main meal Lisinopril-Hctz 10-12.5 Mg Tab Unknown Dose PO DAILY 05/20/17 Reported Metformin (Metformin HCl) 1,000 Mg Tab Unknown Dose PO BIDPC 05/20/17 Reported Family History Noncontributory Social History No tobacco. no ETOH (Evelin Zheng) Review of Systems ROS Unable to obtain (Evelin Zheng) GI Exam Vitals I&O Vital Signs Date Time Temp Pulse Resp B/P (MAP) Pulse Ox O2 Delivery O2 Flow Rate FiO2 06/02/17 16:00 100 Mechanical Ventilator 50 06/02/17 16:00 60 06/02/17 16:00 86 06/02/17 16:00 86 100/54 (69) 134/51 (78) 06/02/17 16:00 97.1 86 29 100/54 (69) 100 134/51 (78) 06/02/17 14:48 60 06/02/17 14:00 94 06/02/17 13:47 96 118/53 06/02/17 13:47 96 118/53 06/02/17 13:37 94 50 06/02/17 12:00 96 Mechanical Ventilator 50 06/02/17 12:00 90 06/02/17 12:00 99.0 90 28 101/50 (67) 96 123/53 (76) 06/02/17 12:00 50 06/02/17 12:00 90 101/50 (67) 123/53 (76) 06/02/17 11:05 87 144/49 06/02/17 10:28 92 50 06/02/17 10:21 87 138/64 06/02/17 10:16 87 192/58 06/02/17 10:00 83 06/02/17 10:00 83 156/131 06/02/17 08:22 91 141/83 06/02/17 08:00 90 06/02/17 08:00 99.8 90 30 114/56 (75) 94 141/82 (101) 06/02/17 08:00 100 Mechanical Ventilator 50 06/02/17 08:00 50 06/02/17 08:00 90 114/56 (75) 141/82 (101) 06/02/17 07:00 84 138/80 06/02/17 07:00 84 138/80 06/02/17 06:00 84 06/02/17 06:00 84 120/60 (80) 133/79 (97) 06/02/17 04:27 93 50 06/02/17 04:10 86 137/82 06/02/17 04:00 99.4 85 26 128/60 (82) 93 135/82 (99) 06/02/17 04:00 50 06/02/17 04:00 85 06/02/17 04:00 93 Mechanical Ventilator 50 06/02/17 04:00 85 135/82 06/02/17 04:00 85 06/02/17 02:30 67 240/115 06/02/17 02:20 83 158/86 06/02/17 02:10 85 160/89 06/02/17 02:00 85 06/02/17 02:00 85 160/91 06/02/17 00:20 96 146/95 06/02/17 00:10 95 141/94 06/02/17 00:06 95 50 06/02/17 00:00 92 06/02/17 00:00 92 135/90 06/02/17 00:00 96 Mechanical Ventilator 50 06/02/17 00:00 92 06/02/17 00:00 50 06/02/17 00:00 99.4 92 16 146/65 (92) 93 135/90 (105) 06/01/17 23:50 92 135/93 06/01/17 23:40 94 130/89 06/01/17 23:20 91 141/78 06/01/17 23:09 91 137/65 06/01/17 23:00 93 137/69 06/01/17 22:54 90 134/72 06/01/17 22:50 92 123/79 06/01/17 22:40 92 127/71 06/01/17 22:30 96 100/60 06/01/17 22:20 92 128/62 06/01/17 22:10 91 163/69 06/01/17 22:00 93 06/01/17 22:00 93 171/72 06/01/17 21:50 89 146/76 06/01/17 21:40 89 143/77 06/01/17 21:30 88 139/75 06/01/17 21:20 87 136/78 06/01/17 21:10 87 120/76 06/01/17 21:00 99.3 86 16 140/63 (88) 95 121/80 (94) 06/01/17 21:00 86 06/01/17 21:00 86 121/80 06/01/17 20:45 96 60 06/01/17 20:00 98 Mechanical Ventilator 60 06/01/17 20:00 60 06/01/17 20:00 96 06/01/17 19:00 99 152/77 06/01/17 18:45 100 100 06/01/17 18:14 89 148/84 06/01/17 18:14 89 148/84 06/01/17 18:00 97 06/01/17 18:00 97 104/55 (71) 97/62 (74) 06/01/17 17:16 92 112/95 I/O 06/01/17 06/01/17 06/01/17 06/02/17 06/02/17 06/02/17 07:00 15:00 23:00 07:00 15:00 23:00 Intake Total 3847 ml 3081 ml 85851 ml 1116.5 ml 1657 ml Output Total 100 ml 600 ml 775 ml 1150 ml Balance 3747 ml 2481 ml 99004 ml -33.5 ml 1657 ml Intake Oral 0 ml IV Total 3847 ml 3081 ml 35695 ml 1116.5 ml 1657 ml Tube Irrigant 240 ml Other 999 ml Output Urine Total 100 ml 600 ml 775 ml 1150 ml # Bowel Movements 0 Imaging Last Impressions Chest X-Ray 06/02/17 0000 Signed Impressions: Service Date/Time: Friday, June 02, 2017 15:14 - CONCLUSION: 1. Cardiomegaly. 2. Perihilar infiltrates consistent with mild to moderate pulmonary vascular congestion versus pneumonia. 3. Small right pleural effusion. 4. Multiple tubes and lines are stable. Nikita Damon MD Abdomen X-Ray 06/02/17 Signed Impressions: Service Date/Time: Friday, June 02, 2017 15:20 - CONCLUSION: OG tube in the stomach. Mike Davis MD FACR Lumbar Spine MRI 06/01/17 Signed Impressions: Service Date/Time: May 19:15 - CONCLUSION: 1. Atypical signal changes remain in the L3-4 disc and adjacent endplates The findings remain nonspecific. There is a moderate size posterior central epidural mass with mass effect on the anterior thecal sac. There is moderate central canal stenosis. The differential diagnosis includes disc protrusion versus small epidural abscess. A contrast enhanced lumbar spine study may be helpful for further evaluation. 2. Mild disc bulges at L2-3 and L4-5 levels with mild flattening the anterior thecal sac. Austin Orellana MD Chest CT 06/01/17 Signed Impressions: Service Date/Time: May 18:49 - CONCLUSION: 1. Dense consolidation in both posterior lower lobes right greater than left with air bronchograms. This could represent pneumonia. 2. Small bilateral pleural effusions. 3. Mild cardiomegaly. Austin Orellana MD Brain MRI 06/01/17 Signed Impressions: Service Date/Time: May 19:15 - CONCLUSION: 1. Multiple new small scattered punctate areas of restricted diffusion consistent with small areas of infarction. This could be secondary to emboli. 2. No acute hemorrhage or mass effect. 3. Acute sinusitis in the ethmoidal air cells and sphenoid sinus with air fluid levels. Austin Orellana MD Abdomen/Pelvis CT 11/2/17 0000 Signed Impressions: Service Date/Time: May 18:49 - CONCLUSION: 1. Suboptimal opacification of the bowel with the distal small bowel unopacified. There is a questionable abnormal gas collection in the anterior lower pelvis. An abscess is not excluded. A repeat study is recommended after additional oral contrast is given. 2. Consolidation in both posterior lung bases with small pleural effusions. Austin Orellana MD Renal Ultrasound 05/31/17 0000 Signed Impressions: Service Date/Time: Wednesday, May 31, 2017 20:47 - CONCLUSION: 1. Suboptimal exam with visualization. 2. No evidence of hydronephrosis. 3. Cyst extending off right kidney. Austin Orellana MD Lower Extremity Ultrasound 05/29/17 0000 Signed Impressions: Service Date/Time: Monday, May 29, 2017 13:10 - CONCLUSION: 1. No evidence of deep venous thrombosis. Monty Gross MD Tumor Localization 05/26/17 0000 Signed Impressions: Service Date/Time: Friday, May 26, 2017 13:36 - CONCLUSION: No abnormal uptake identified to suggest infection. Nikita Damon MD Liver Ultrasound 05/21/17 0000 Signed Impressions: Service Date/Time: Sunday, May 21, 2017 10:32 - CONCLUSION: 1. Hepatic steatosis. 2. Gallstones 3. Limited evaluation of the right kidney. Santana Lamar MD Head CT 05/20/171928 Signed Impressions: Service Date/Time: Saturday, May 20, 2017 19:55 - CONCLUSION: 1. No acute findings. Retention cyst right maxillary sinus. Jakob Scruggs MD Laboratory Test 06/02/17 09:46 White Blood Count 11.8 TH/MM3 Red Blood Count 3.22 MIL/MM3 Hemoglobin 9.3 GM/DL Hematocrit 29.4 % Mean Corpuscular Volume 91.3 FL Mean Corpuscular Hemoglobin 28.9 PG Mean Corpuscular Hemoglobin Concent 31.6 % Red Cell Distribution Width 16.2 % Platelet Count 138 TH/MM3 Mean Platelet Volume 10.8 FL Neutrophils (%) (Auto) 79.7 % Lymphocytes (%) (Auto) 9.3 % Monocytes (%) (Auto) 8.6 % Eosinophils (%) (Auto) 1.1 % Basophils (%) (Auto) 1.3 % Neutrophils # (Auto) 9.4 TH/MM3 Lymphocytes # (Auto) 1.1 TH/MM3 Monocytes # (Auto) 1.0 TH/MM3 Eosinophils # (Auto) 0.1 TH/MM3 Basophils # (Auto) 0.2 TH/MM3 CBC Comment AUTO DIFF Differential Total Cells Counted 100 Neutrophils % (Manual) 64 % Band Neutrophils % 21 % Lymphocytes % 4 % Monocytes % 5 % Eosinophils % 1 % Basophils % 2 % Neutrophils # (Manual) 10.4 TH/MM3 Metamyelocytes 1 % Myelocytes 2 % Differential Comment FINAL DIFF MANUAL Toxic Vacuolation PRESENT Platelet Estimate LOW Platelet Morphology Comment NORMAL Prothrombin Time 18.0 SEC Prothromb Time International Ratio 1.6 RATIO Activated Partial Thromboplast Time 34.5 SEC Blood Urea Nitrogen 19 MG/DL Creatinine 1.56 MG/DL Random Glucose 216 MG/DL Total Protein 5.9 GM/DL Albumin 1.3 GM/DL Calcium Level 6.8 MG/DL Alkaline Phosphatase 88 U/L Aspartate Amino Transf (AST/SGOT) 232 U/L Alanine Aminotransferase (ALT/SGPT) 100 U/L Total Bilirubin 0.3 MG/DL Sodium Level 138 MEQ/L Potassium Level 3.4 MEQ/L Chloride Level 104 MEQ/L Carbon Dioxide Level 21.5 MEQ/L Anion Gap 13 MEQ/L Estimat Glomerular Filtration Rate 33 ML/MIN Protein Corrected Calcium 7.4 MG/DL Date/Time Source Procedure Growth Status 06/01/17 12:08 Blood Peripheral Blood Fungal Culture Pending Received 06/01/17 12:08 Blood Peripheral Blood Fungal Culture Pending Received 06/01/17 14:35 Cerebral Spinal Fluid Lumbar Puncture Fungal Smear - Final NO FUNGAL ELEMENTS SEEN. Resulted 06/01/17 14:35 Cerebral Spinal Fluid Lumbar Puncture Fungal Culture Pending Resulted 06/01/17 03:50 Sputum Endotracheal Gram Stain - Final Resulted 06/01/17 03:50 Sputum Endotracheal Sputum Culture - Preliminary MODERATE GROWTH NORMAL RESPIRATORY FL... Resulted 05/30/17 13:30 Urine Catheterized Urine Urine Culture - Final NO GROWTH IN 48 HOURS. Complete Physical Examination HEENT: Normocephalic; atraumatic; no jaundice. CARDIAC: RRR, OETT vent. ABDOMEN: Soft, obsese, nondistended, nontender; no hepatosplenomegaly; bowel sounds are present in all four quadrants. EXTREMITIES: BLE edema. STOCK ANALYST: Sedated on vent. (Evelin Zheng) Assessment and Plan Plan ASSESSMENT: - ? Diverticular abscess. CT scan without IV contrast (06/01/17)---> Suboptimal opacification of the bowel with the distal small bowel unopacified. There is a questionable abnoraml gas collection in the anterior lower pelvis. An abscess is not excluded. A rpt study is recommended after additional oral contrast is given. Consolidation in both posterior lung bases with small pleural effusions. S/P GS evaluation, recommends CT guided drainage/drain placement of intra-abdominal abscess. Flagyl, Zerbaxa, Micafungin, Ceftriaxone, and Zyvox. WBC 11.8 - Elevated LFTs. On admission, LFTs of T. Bili 0.4, AST 35, ALT 58, ALk Phosph 51. These have increased and are now 0.3, 232, 100, 88. Likely secondary to infection, medication. - Sepsis/Bacteremia (Gr. B Beta Strep)/Discitis. STEVEN negative. Flagyl, Zerbaxa , Micafungin, Ceftriaxone, and Zyvox - Resp. Failure, HCAP, Aspiration PNA, CHE. - Encephalopathy. MRI of the brain, which revealed multiple new small scattered punctate areas of restricted diffusion consistent with small areas of infarction, this could be secondary to emboli. Cardiology was consulted and she had a STEVEN earlier today, which was negative for vegetations. - Anemia. 9.3/29.4. - JAMES. 1.56. - DM, Hyperlipidemia per attending. PLAN: - NPO - CT guided drainage of abscess - Await final cx - Abx per ID - Monitor labs - Further recommendations to follow - GS following - ID following - CCM following - Pt seen and examined by Dr. Servin and myself and this note is written on his behalf (Evelin Zheng) Physician Comments Seen and examined, plan as above, will follow up with you periodically and as needed. Thank you for the consult. (Myra Servin MD) Evelin Zheng Jun 02, 2017 17:50 Myra Servin MD Jun 03, 2017 13:59
--- NOTE | 2017-06-02 18:50 | ECHRPT ---
Indication: CONCLUSIONS The left ventricular systolic function is normal with an estimated ejection fraction in the range of 55-60%. Mild concentric left ventricular hypertrophy. A patent foramen ovale is present with a [id number] shunt demonstrated by color flow Doppler interrogation. Trace mitral valve regurgitation. No evidence of endocarditis noted. BP: / HR: Rhythm: Sinus Technical Quality:Good Medications Complications There were no complications prior to, during or in recovery from the transesophag eal echocardiogram.. Proc. Components Patient intubated not on sedation. I proved moderate sedation for 30 minutes for the procedure. FINDINGS LEFT VENTRICLE Normal left ventricular size. Mild concentric left ventricular hypertrophy. The left ventricular systolic function is normal with an estimated ejection fraction in the range of 55-60%. No regional wall motion abnormalities are present. RIGHT VENTRICLE The right ventricular size is normal. LEFT ATRIUM The left atrial size is normal. RIGHT ATRIUM The right atrial size is normal. ATRIAL APPENDAGES Not well visualized. ATRIAL SEPTUM A patent foramen ovale is present with a [id number] shunt demonstrated by color flow Doppler interrogation. AORTA Descending aorta without dissection MITRAL VALVE Structurally normal mitral valve. Trace mitral valve regurgitation. No mitral valve stenosis. AORTIC VALVE Trileaflet aortic valve. No aortic valve regurgitation. No aortic valve stenosis. TRICUSPID VALVE Structurally normal tricuspid valve. There is trace tricuspid valve regurgitation. No tricuspid valv e stenosis. VESSELS No pulmonary valve regurgitation. PERICADIUM There is no pericardial effusion. Alberto Hoover DO (Electronically Signed) Final Date:02 June 2017 18:48
--- NOTE | 2017-06-02 18:57 | HHI.CCPN ---
Subjective Remarks/Hospital Course 66-year-old female presents confused and lethargic. Patient reportedly was recently seen today at an urgent care and received an injection for low back pain. Patient here denies headaches, chest pain or shortness of breath, abdominal pain or extremity pain. Patient does complain of low back pain. at bedside states that they're visiting from out of state for the past 3 months and will be returning back to their home state in a week. reports patient has chronic low back pain but this exacerbated over the last 24 hours starting yesterday morning. Patient was seen earlier today by her chiropractor for an adjustment and then was referred to an urgent care. Patient reportedly had a fever at the chiropractor's office and felt cold and clammy. At the urgent care patient was evaluated and reportedly had an injection of a nonsteroidal medication as she is diabetic and he did not want to give her a steroid injection. Patient went home about 1:00 PM she was drowsy so sat down in a chair and fell asleep according to the . He tried to awaken her at 4:30 and noticed that she was confusional and lethargic. He attempted to continue to awaken her over the next 2-3 hours and because she was not improving decided finally to call EMS to transport her to the emergency room. Patient and spouse denied any recent injury or fall. Patient was ambulatory this morning but this evening has difficulty elevating her lower extremities as well as she was generally extremely weak. 05/21 Patient is on BIPAP 12/5 with 45% FIO2. Afebrile. Awake. Renal function is improving with Cr: 1.87 from 2.74. 05/22 No events overnight. Patient is more awake and alert off BIPAP. Renal function is improving with Cr: 1.07 from 1.87. delayed note entry. consulted and seen at ~1500. RECONSULT NOTE: 05/30: reconsulted for worsening hypoxemia. now on 6L facemask. please refer to prior consult note for detailed medical history. In brief, 66yF lethargic female, back pain after injection, ? discitis/osteo, on abx for group B strep, worsening fever, tachycardia, tachypnea, o2 requirement to 6L facemask and RR up to 40s. patient unable to provide additional history but does appear in distress. 05/31: Patient remains encephalopathic, on high flow O2 via nasal cannula, this morning was on 60 L/m 55% FiO2. Subsequently has dropped to 30 L/m to extubate percent FiO2. Given 80 mg IV Lasix with no response. Subsequently given Bumex 2 mg IV push and started on Bumex drip at 1 mg/h to attempt to diurese in an effort to improve respiratory status however has not had any increase in urine output with Bumex drip. Creatinine came back elevated at 2.13. Suspect acute kidney injury/ATN which may be a reason for poor response to diuretics. She also spiked a temperature of 103 for which IV Ofirmev was ordered. 06/01: intubated overnight and hypotensive requiring vasopressors. now remains in shock on 2 vasopressors. bedside critical care echo demonstrates hyperdynamic LV with completely collapsed IVC. gave 2L bolus and started on mivf @ 100 cc/hr. still spiking fevers. discussed with Dr. Portillo and plan to repeat LP as well as cultures and imaging to look for source. clinically worse today. 06/02: off vasopressors. remains intubated and sedated, very encephalopathic. MRI with new punctate strokes. STEVEN being done today. also ? abscess in the pelvis of unknown origin, maybe contained diverticulitis? CT guided drainage. although some improvements in hemodynamics, no improvements in vent or encephalopathy. off pathway. Objective Vital Signs Date Time Temp Pulse Resp B/P (MAP) Pulse Ox O2 Delivery O2 Flow Rate FiO2 06/02/17 18:00 93 06/02/17 17:00 100 100 06/02/17 16:00 Mechanical Ventilator 06/02/17 16:00 100/54 (69) 134/51 (78) 06/02/17 16:00 97.1 29 05/31/17 20:29 30.00 Intake and Output 06/02/17 06/02/17 06/03/17 08:00 16:00 00:00 Intake Total 659 ml 2157 ml 2314 ml Output Total 1150 ml 550 ml Balance -491 ml 2157 ml 1764 ml Result Diagram: 06/02/17 0946 06/02/17 0946 Imaging Last Impressions Liver Ultrasound 05/21/17 0000 Signed Impressions: Service Date/Time: Sunday, May 21, 2017 10:32 - CONCLUSION: 1. Hepatic steatosis. 2. Gallstones 3. Limited evaluation of the right kidney. Santana Lamar MD Chest X-Ray 05/21/17 0000 Signed Impressions: Service Date/Time: Sunday, May 21, 2017 06:17 - CONCLUSION: 1. Limited suboptimal study with motion artifact. 2. No definite acute cardiac pulmonary disease. Austin Orellana MD Head CT [id number]/20/[id number] Signed Impressions: Service Date/Time: Saturday, May 20, 2017 19:55 - CONCLUSION: 1. No acute findings. Retention cyst right maxillary sinus. Jakob Scruggs MD Objective Remarks GENERAL: Patient is 66 yo lying in bed, intubated, sedated. SKIN: Warm and dry. HEAD: Normocephalic. EYES: No scleral icterus. No injection or drainage. NECK: trachea midline. large neck prevents accurate assessment of JVD. CARDIOVASCULAR: tachycardic rate, regular rhythm. RESPIRATORY: intubated, fio2 60%, coarse breath sounds bilaterally. GASTROINTESTINAL: Abdomen soft, non-tender, nondistended. MUSCULOSKELETAL: No cyanosis, or edema. Neuro: RASS -4. CAM +. withdraws to pain. does not follow commands. Procedures None Date of Insertion: May 25, 2017 A/P Assessment and Plan Assessment: 66yF with encephalopathy thought to be secondary to LAG SCREWER infection vs. toxic/metabolic, with worsening hypoxic respiratory failure and septic shock. some organs show early signs of improvement, however no improvement at all in pulmonary function or encephalopathy. off pathway. plan for CT guided drainage of ? abscess and STEVEN today for further evaluation. will need full stroke eval including carotid dopplers and lipid panel. remains critically ill today and off pathway. appreciate subspecialty recommendations. Septic Shock Multiorgan system dysfunction Shock liver Acute kidney injury Intravascular volume depletion Presumed adrenal insufficiency Strep bacteremia (recent blood cultures negative) Encephalopathy Discitis Possible LAG SCREWER infection Acute hypoxic respiratory failure Possible new HCAP/Aspiration pneumonia Acute encephalopathy Morbid obesity Suspect Obstructive sleep apnea syndrome Uncontrolled diabetes mellitus Acute CVA, multifocal areas of ischemia Possible pelvic abscess Plan Neuro -Follow neuro status. Abnormal EEG previously. Follow-up repeat EEG. Continue phenytoin and Keppra. Neurology following. - new areas of stroke. obtain lipid panel and carotid dopplers. STEVEN. Cardiovascular - off vasopressors. continue mivf. continue steroids. Pulmonary - wean fio2 for goal spo2 > 90%. - vent bundle, hob at 30 degrees, nebs. - f/u sputum culture - no SBT until mental status improves. - no improvement in fio2 or pulmonary status today. off pathway. ID - abx per ID. on Rocephin, Levaquin, Zyvox, Flagyl IV. Follow-up cultures. - repeat LP without evidence of active bacterial infection. - CT guided drainage abscess. Renal/ -perry likely secondary to sepsis. clinically starting to improve. adequate uop. GI/liver - OGT. NPO until shock resolves. start TF tomorrow. Endocrine Continue Levemir. high dose SSI for better glycemic control. Heme Follow CBC Prophylaxis -Heparin for DVT prophylaxis, Pepcid for GI prophylaxis. Critical care time: 33 minutes, exclusive of separately billable procedures. Bang Anthony MD Jun 02, 2017 18:57
[2017-06-03] VITALS (17 sets, daily range): BP systolic 92–131; BP diastolic 45–63; PULSE 79–88; RESP 25–36; TEMP 97.7–98.9; O2SAT 95–100
[2017-06-03] MEDS: LINEZOLID 600 MG PREMIX 300 ML IV SCH ×2 (00:22→12:11)
[2017-06-03] MEDS: CEFTOLOZANE-TAZOBACTAM INJ 375 MG in SODIUM CHLORIDE 0.9% INJ 100 ML IV SCH ×2 (00:23→10:02)
[2017-06-03] MEDS: HYDROCORTISONE SOD SUCCINATE 100 MG VIAL IV PUSH SCH ×4 (00:23→20:26)
[2017-06-03] MEDS: CHLORHEXIDINE GLUCONATE 2 % 1 PACK (2 CLOTHS) TOP SCH (04:00)
[2017-06-03] MEDS: HEPARIN SODIUM - SQ 10,000 UNITS/ML VIAL SQ SCH ×3 (04:36→20:25)
[2017-06-03] MEDS: PHENYTOIN INJ 100 MG/2 ML VIAL IV SCH ×3 (04:36→20:25)
[2017-06-03] MEDS: metroNIDAZOLE 500 MG INJ 100 ML IV SCH ×3 (04:36→20:25)
[2017-06-03] MEDS: cefTRIAXone INJ 2,000 MG in SODIUM CHLORIDE 0.9% INJ 100 ML IV SCH ×2 (04:37→18:02)
[2017-06-03] MEDS: SODIUM CHLOR 0.9% 1000 ML INJ 1,000 ML IV SCH (04:37)
[2017-06-03] MEDS: INSULIN REGULAR (IV INFUSION) 100 UNITS in SODIUM CHLORIDE 0.9% INJ 99 ML IV PRN ×3 (05:08→19:29)
[2017-06-03 06:31] LABS: AUTOMATED NEUTROPHIL # 8.6 TH/MM3 (1.8-7.7); BASOPHIL # 0.1 TH/MM3 (0-0.2); BASOPHIL % 1.1 % (0.0-2.0); EOSINOPHIL % 0.1 % (0.0-4.0); HEMATOCRIT 28.3 % (35.0-46.0); LYMPH % 7.8 % (9.0-44.0); LYMPHOCYTE # 0.8 TH/MM3 (1.0-4.8); MEAN CELL VOLUME 91.8 FL (80.0-100.0); MEAN CORPUSCULAR HEMOGLOBIN 29.6 PG (27.0-34.0); MEAN CORPUSCULAR HGB CONC 32.3 % (32.0-36.0); MONO % 6.8 % (0.0-8.0); NEUT % 84.2 % (16.0-70.0); PLATELET COUNT 133 TH/MM3 (150-450); RED BLOOD COUNT 3.09 MIL/MM3 (4.00-5.30); RED CELL DISTRIBUTION WIDTH 16.9 % (11.6-17.2); WHITE BLOOD COUNT 10.2 TH/MM3 (4.0-11.0)
[2017-06-03 06:39] LABS: HEMO FLAGS AUTO DIFF
[2017-06-03 06:46] LABS: HDL CHOLESTEROL 8.1 MG/DL (40.0-60.0)
[2017-06-03 07:59] LABS: MAGNESIUM 1.2 MG/DL (1.5-2.5); TOTAL BILIRUBIN ADULT 0.4 MG/DL (0.2-1.0)
[2017-06-03 08:13] LABS: CALCIUM-PROTEIN CORRECTED 7.4 MG/DL (8.5-10.1)
[2017-06-03 08:48] LABS: CKMB 3.2 NG/ML (0.5-3.6)
[2017-06-03 09:16] LABS: BANDS 21 % (0-6); METAMYELOCYTES 5 % (0-1); MYELOCYTES 1 % (0-0); NEUTROPHIL # MANUAL DIFF 9.6 TH/MM3 (1.8-7.7); PLATELET ESTIMATE SMEAR LOW (NORMAL); PLATELET MORPHOLOGY ENLARGED (NORMAL); POLYS (SEG NEUTROPHILS) 67 % (16-70); WBC DIFF SAMPLE 100
[2017-06-03 09:18] LABS: SCAN/DIFF FINAL DIFF MANUAL
[2017-06-03] MEDS: MICAFUNGIN INJ 150 MG in SODIUM CHLORIDE 0.9% INJ 100 ML IV SCH (09:59)
[2017-06-03] MEDS: SODIUM CHLORIDE 0.9% FLUSH 10 ML FLUSH IV FLUSH SCH ×2 (09:59→20:27)
[2017-06-03] MEDS: levETIRAcetam INJ 750 MG in SODIUM CHLORIDE 0.9% INJ 100 ML IV SCH ×2 (09:59→20:24)
[2017-06-03] MEDS: FAMOTIDINE 20 MG/2 ML VIAL IV PUSH SCH ×2 (10:00→20:26)
[2017-06-03] MEDS: NYSTATIN 100,000 U/GM PWD 15 GM BTL TOPICAL SCH ×2 (10:00→20:27)
[2017-06-03] MEDS: DOCUSATE SODIUM 50 MG/SENNA 8.6 MG TAB PO SCH ×2 (10:00→20:26)
[2017-06-03] MEDS ORDERED: MAGNESIUM OXIDE 400 MG TAB PO PRN (11:00)
[2017-06-03] MEDS ORDERED: POTASSIUM PHOSPHATE MONOBASIC 500 MG TAB PO PRN (11:00)
[2017-06-03] MEDS ORDERED: MAGNESIUM SULFATE INJ 4 GM in SODIUM CHLORIDE 0.9% INJ 92 ML IV PRN (11:00)
[2017-06-03] MEDS ORDERED: POTASSIUM PHOSPHATE MONOBASIC 500 MG TAB PO/TUBE PRN (11:00)
[2017-06-03] MEDS ORDERED: POTASSIUM CHLOR 20 MEQ PREMIX 100 ML IV PRN (11:00)
--- NOTE | 2017-06-03 11:27 | PD.CARD.PN ---
Subjective Subjective Remarks No events overnight Objective Medications Current Medications Medications (Trade) Dose Ordered Sig/Erasmo Route Start Time Stop Time Status Last Admin (Heparin Inj) 5,000 units Q8H SQ 05/20/17 22:00 Future hold 06/03/17 04:36 Miscellaneous Information 1 Q361D XX 05/20/17 22:30 (Chlorhexidine 2% Cloth) Taper DAILY@04 TOP 05/21/17 04:00 05/17/18 03:59 06/03/17 04:00 (Chlorhexidine 2% Cloth) 3 pack UNSCH PRN TOP 05/20/17 22:30 (Tylenol) 650 mg Q6H PRN PO 05/21/17 01:30 (Duoneb Neb) 1 ampule Q2HR NEB PRN NEB 05/21/17 05:45 06/01/17 20:50 (D50w (Vial) Inj) 50 ml UNSCH PRN IV PUSH 05/22/17 07:30 (Glucagon Inj) 1 mg UNSCH PRN OTHER 05/22/17 07:30 (NS Flush) 2 ml UNSCH PRN IV FLUSH 05/24/17 12:15 05/31/17 10:37 (NS Flush) 2 ml BID IV FLUSH 05/24/17 21:00 06/03/17 09:59 (Narcan Inj) 0.4 mg UNSCH PRN IV PUSH 05/24/17 12:15 (May-Colace) 1 tab BID PO 05/24/17 21:00 06/03/17 10:00 (Milk Of Magnesia Liq) 30 ml Q12H PRN PO 05/24/17 12:15 05/24/17 13:45 (Senokot) 17.2 mg Q12H PRN PO 05/24/17 12:15 (Dulcolax Supp) 10 mg DAILY PRN RECTAL 05/24/17 12:15 (Lactulose Liq) 30 ml DAILY PRN PO 05/24/17 12:15 Ceftriaxone Sodium 2000 mg/ Sodium Chloride 100 ml @ 200 mls/hr Q12H IV 05/25/17 17:00 06/03/17 04:37 (Dilantin Inj) 100 mg Q8HR IV 05/26/17 22:00 06/03/17 04:36 (Mycostatin Powder) 1 applic Q12HR TOPICAL 05/30/17 10:00 06/03/17 10:00 Linezolid 300 ml @ 300 mls/hr Q12H IV 05/30/17 13:00 06/03/17 00:22 (Tylenol Supp) 650 mg Q6H PRN RECTAL 05/30/17 13:15 05/30/17 14:06 (Pepcid Inj) 10 mg Q12HR IV PUSH 05/31/17 21:00 06/03/17 10:00 (Ofirmev 1000 Mg/ 100 ml Inj) 1,000 mg Q6H PRN IV 05/31/17 16:30 05/31/17 16:51 Midazolam HCl 100 ml @ 2 mls/hr TITRATE PRN IV 05/31/17 22:45 06/02/17 18:15 Vasopressin 40 units/Dextrose 100 ml @ 6 mls/hr [id number] IV 06/01/17 05:21 06/02/17 11:05 Micafungin Sodium 150 mg/Sodium Chloride 100 ml @ 100 mls/hr Q24H IV 06/01/17 08:00 06/03/17 09:59 Ceftolozane/ Tazobactam 375 mg/ Sodium Chloride 100 ml @ 100 mls/hr Q8H IV 06/01/17 09:00 06/03/17 10:02 Sodium Chloride 1,000 ml @ 100 mls/hr Q10H IV 06/01/17 11:00 06/03/17 04:37 (SoluCORTEF INJ) 50 mg Q6HR IV PUSH 06/01/17 12:15 06/03/17 04:36 Insulin Human Regular 100 units/ Sodium Chloride 100 ml @ 3 mls/hr TITRATE PRN IV 06/01/17 11:45 06/03/17 05:08 (D50w (Vial) Inj) 50 ml UNSCH PRN IV PUSH 06/01/17 11:45 Norepinephrine Bitartrate 8 mg/ Sodium Chloride 250 ml @ 37.5 mls/hr TITRATE PRN IV 06/01/17 13:00 06/01/17 23:09 Levetriacetam 750 mg/Sodium Chloride 107.5 ml @ 430 mls/hr Q12HR IV 06/01/17 21:00 06/03/17 09:59 Metronidazole 100 ml @ 100 mls/hr Q8H IV 06/01/17 22:00 06/03/17 04:36 Vital Signs / I&O Vital Signs Date Time Temp Pulse Resp B/P (MAP) Pulse Ox O2 Delivery O2 Flow Rate FiO2 06/03/17 09:35 98 50 06/03/17 06:00 84 06/03/17 04:20 98 50 06/03/17 04:00 50 06/03/17 04:00 87 06/03/17 04:00 98.1 84 27 102/50 (67) 98 06/03/17 04:00 100 Mechanical Ventilator 50 06/03/17 02:00 85 06/03/17 00:11 97 50 06/03/17 00:00 98.4 86 27 92/45 (61) 100 06/03/17 00:00 86 06/03/17 00:00 50 06/03/17 00:00 100 Mechanical Ventilator 50 06/02/17 22:00 86 06/02/17 20:40 100 50 06/02/17 20:00 50 06/02/17 20:00 83 06/02/17 20:00 100 Mechanical Ventilator 50 06/02/17 20:00 97.8 83 24 93/49 (64) 100 Arterial Line 06/02/17 18:00 93 06/02/17 17:00 100 100 06/02/17 16:00 100 Mechanical Ventilator 50 06/02/17 16:00 60 06/02/17 16:00 86 06/02/17 16:00 86 100/54 (69) 134/51 (78) 06/02/17 16:00 97.1 86 29 100/54 (69) 100 134/51 (78) 06/02/17 14:48 60 06/02/17 14:00 94 06/02/17 13:47 96 118/53 06/02/17 13:47 96 118/53 06/02/17 13:37 94 50 06/02/17 12:00 96 Mechanical Ventilator 50 06/02/17 12:00 90 06/02/17 12:00 99.0 90 28 101/50 (67) 96 123/53 (76) 06/02/17 12:00 50 06/02/17 12:00 90 101/50 (67) 123/53 (76) I/O 06/02/17 06/02/17 06/02/17 06/03/17 06/03/17 06/03/17 07:00 15:00 23:00 07:00 15:00 23:00 Intake Total 1116.5 ml 2057 ml 2685.5 ml 1750 ml Output Total 1150 ml 550 ml 290 ml Balance -33.5 ml 2057 ml 2135.5 ml 1460 ml IV Total 1116.5 ml 2057 ml 1566.5 ml 1750 ml Tube Irrigant 120 ml Other 999 ml Output Urine Total 1150 ml 550 ml 290 ml # Bowel Movements 1 Physical Exam GENERAL: Intubated on light sedation, withdraws to pain SKIN: Warm and dry. HEAD: Atraumatic. Normocephalic. EYES: Pupils equal and round. No scleral icterus. No injection or drainage. ENT: No nasal bleeding or discharge. Mucous membranes pink and moist. NECK: Trachea midline. No JVD. CARDIOVASCULAR: Regular rate and rhythm. RESPIRATORY: No accessory muscle use. Decreased breath sounds bilaterally GASTROINTESTINAL: Abdomen soft, non-tender, nondistended. Hepatic and splenic margins not palpable. MUSCULOSKELETAL: 1-2+ pitting edema bilaterally. NEUROLOGICAL: Withdraws to pain Laboratory Laboratory Tests Test 06/03/17 04:30 White Blood Count 10.2 TH/MM3 Red Blood Count 3.09 MIL/MM3 Hemoglobin 9.1 GM/DL Hematocrit 28.3 % Mean Corpuscular Volume 91.8 FL Mean Corpuscular Hemoglobin 29.6 PG Mean Corpuscular Hemoglobin Concent 32.3 % Red Cell Distribution Width 16.9 % Platelet Count 133 TH/MM3 Mean Platelet Volume 11.1 FL Neutrophils (%) (Auto) 84.2 % Lymphocytes (%) (Auto) 7.8 % Monocytes (%) (Auto) 6.8 % Eosinophils (%) (Auto) 0.1 % Basophils (%) (Auto) 1.1 % Neutrophils # (Auto) 8.6 TH/MM3 Lymphocytes # (Auto) 0.8 TH/MM3 Monocytes # (Auto) 0.7 TH/MM3 Eosinophils # (Auto) 0.0 TH/MM3 Basophils # (Auto) 0.1 TH/MM3 CBC Comment AUTO DIFF Differential Total Cells Counted 100 Neutrophils % (Manual) 67 % Band Neutrophils % 21 % Lymphocytes % 2 % Monocytes % 4 % Neutrophils # (Manual) 9.6 TH/MM3 Metamyelocytes 5 % Myelocytes 1 % Differential Comment FINAL DIFF MANUAL Toxic Granulation Platelet Estimate LOW Platelet Morphology Comment ENLARGED Blood Urea Nitrogen 20 MG/DL Creatinine 1.25 MG/DL Random Glucose 233 MG/DL Total Protein 5.7 GM/DL Albumin 1.3 GM/DL Calcium Level 6.7 MG/DL Phosphorus Level 0.8 MG/DL Magnesium Level 1.2 MG/DL Alkaline Phosphatase 118 U/L Aspartate Amino Transf (AST/SGOT) 239 U/L Alanine Aminotransferase (ALT/SGPT) 130 U/L Total Bilirubin 0.4 MG/DL Sodium Level 138 MEQ/L Potassium Level 3.0 MEQ/L Chloride Level 105 MEQ/L Carbon Dioxide Level 18.0 MEQ/L Anion Gap 15 MEQ/L Estimat Glomerular Filtration Rate 43 ML/MIN Protein Corrected Calcium 7.4 MG/DL Total Creatine Kinase 906 U/L Creatine Kinase MB 3.2 NG/ML Creatine Kinase MB % 0.4 % Triglycerides Level 505 MG/DL Cholesterol Level 84 MG/DL LDL Cholesterol MG/DL HDL Cholesterol 8.1 MG/DL Cholesterol/HDL Ratio 10.37 RATIO Assessment and Plan Problem List: (1) Acute hypercapnic respiratory failure ICD Codes: J96.02 - Acute respiratory failure with hypercapnia (2) Bacteremia due to group B Streptococcus ICD Codes: R78.81 - Bacteremia (3) SIRS (systemic inflammatory response syndrome) ICD Codes: R65.10 - Systemic inflammatory response syndrome (SIRS) of non- infectious origin without acute organ dysfunction Status: Acute (4) Acute renal failure ICD Codes: N17.9 - Acute kidney failure, unspecified Status: Acute (5) Septic shock ICD Codes: A41.9 - Sepsis, unspecified organism; R65.21 - Severe sepsis with septic shock (6) Altered mental status ICD Codes: R41.82 - Altered mental status, unspecified Status: Acute (7) Morbid obesity ICD Codes: E66.01 - Morbid (severe) obesity due to excess calories (8) Diabetes ICD Codes: E11.9 - Type 2 diabetes mellitus without complications Status: Acute Assessment and Plan 1) MRI showing possible concern for emboli 2) STEVEN negative for endocarditis PFO noted with right to left flow 3) No further cardiovascular issues, will see PRN, call with questions Problem Qualifiers (1) Acute renal failure: Qualified Codes: N17.9 - Acute kidney failure, unspecified (2) Altered mental status: Qualified Codes: R41.82 - Altered mental status, unspecified (3) Diabetes: Alberto Hoover DO Jun 03, 2017 11:27
--- NOTE | 2017-06-03 11:33 | HHI.CCPN ---
Subjective Remarks/Hospital Course 66-year-old female presents confused and lethargic. Patient reportedly was recently seen today at an urgent care and received an injection for low back pain. Patient here denies headaches, chest pain or shortness of breath, abdominal pain or extremity pain. Patient does complain of low back pain. at bedside states that they're [place] from out of state for the past 3 months and will be returning back to their home state in a week. reports patient has chronic low back pain but this exacerbated over the last 24 hours starting yesterday morning. Patient was seen earlier today by her chiropractor for an adjustment and then was referred to an urgent care. Patient reportedly had a fever at the chiropractor's office and felt cold and clammy. At the urgent care patient was evaluated and reportedly had an injection of a nonsteroidal medication as she is diabetic and he did not want to give her a steroid injection. Patient went home about 1:00 PM she was drowsy so sat down in a chair and fell asleep according to the . He tried to awaken her at 4:30 and noticed that she was confusional and lethargic. He attempted to continue to awaken her over the next 2-3 hours and because she was not improving decided finally to call EMS to transport her to the emergency room. Patient and spouse denied any recent injury or fall. Patient was ambulatory this morning but this evening has difficulty elevating her lower extremities as well as she was generally extremely weak. 05/21 Patient is on BIPAP 12/5 with 45% FIO2. Afebrile. Awake. Renal function is improving with Cr: 1.87 from 2.74. 05/22 No events overnight. Patient is more awake and alert off BIPAP. Renal function is improving with Cr: 1.07 from 1.87. delayed note entry. consulted and seen at ~1500. RECONSULT NOTE: 05/30: reconsulted for worsening hypoxemia. now on 6L facemask. please refer to prior consult note for detailed medical history. In brief, 66yF lethargic female, back pain after injection, ? discitis/osteo, on abx for group B strep, worsening fever, tachycardia, tachypnea, o2 requirement to 6L facemask and RR up to 40s. patient unable to provide additional history but does appear in distress. 05/31: Patient remains encephalopathic, on high flow O2 via nasal cannula, this morning was on 60 L/m 55% FiO2. Subsequently has dropped to 30 L/m to extubate percent FiO2. Given 80 mg IV Lasix with no response. Subsequently given Bumex 2 mg IV push and started on Bumex drip at 1 mg/h to attempt to diurese in an effort to improve respiratory status however has not had any increase in urine output with Bumex drip. Creatinine came back elevated at 2.13. Suspect acute kidney injury/ATN which may be a reason for poor response to diuretics. She also spiked a temperature of 103 for which IV Ofirmev was ordered. 06/01: intubated overnight and hypotensive requiring vasopressors. now remains in shock on 2 vasopressors. bedside critical care echo demonstrates hyperdynamic LV with completely collapsed IVC. gave 2L bolus and started on mivf @ 100 cc/hr. still spiking fevers. discussed with Dr. Portillo and plan to repeat LP as well as cultures and imaging to look for source. clinically worse today. 06/02: off vasopressors. remains intubated and sedated, very encephalopathic. MRI with new punctate strokes. STEVEN being done today. also ? abscess in the pelvis of unknown origin, maybe contained diverticulitis? CT guided drainage. although some improvements in hemodynamics, no improvements in vent or encephalopathy. off pathway. 06/03: IR re-ct scan without any evidence of abdominal abscess. blood glucose still not controlled despite high dose algorithm. wbc downtrending. Objective Vital Signs Date Time Temp Pulse Resp B/P (MAP) Pulse Ox O2 Delivery O2 Flow Rate FiO2 06/03/17 06:00 84 06/03/17 04:20 98 50 06/03/17 04:00 98.1 27 102/50 (67) 06/03/17 04:00 Mechanical Ventilator 05/31/17 20:29 30.00 Intake and Output 06/03/17 06/03/17 06/04/17 08:00 16:00 00:00 Intake Total 1750 ml Output Total 290 ml Balance 1460 ml Result Diagram: 06/03/17 0430 06/03/17 0430 Imaging Last Impressions Liver Ultrasound 05/21/17 0000 Signed Impressions: Service Date/Time: Sunday, May 21, 2017 10:32 - CONCLUSION: 1. Hepatic steatosis. 2. Gallstones 3. Limited evaluation of the right kidney. Santana Lamar MD Chest X-Ray 05/21/17 0000 Signed Impressions: Service Date/Time: Sunday, May 21, 2017 06:17 - CONCLUSION: 1. Limited suboptimal study with motion artifact. 2. No definite acute cardiac pulmonary disease. Austin Orellana MD Head CT [id number]/20/171928 Signed Impressions: Service Date/Time: Saturday, May 20, 2017 19:55 - CONCLUSION: 1. No acute findings. Retention cyst right maxillary sinus. Jakob Scruggs MD Objective Remarks GENERAL: Patient is 66 yo lying in bed, intubated, sedated. SKIN: Warm and dry. HEAD: Normocephalic. EYES: No scleral icterus. No injection or drainage. NECK: trachea midline. large neck prevents accurate assessment of JVD. CARDIOVASCULAR: tachycardic rate, regular rhythm. RESPIRATORY: intubated, fio2 60%, coarse breath sounds bilaterally. GASTROINTESTINAL: Abdomen soft, non-tender, nondistended. MUSCULOSKELETAL: No cyanosis, or edema. Neuro: RASS -4. CAM +. withdraws to pain. does not follow commands. Procedures None Date of Insertion: May 25, 2017 A/P Assessment and Plan Assessment: 66yF with encephalopathy thought to be secondary to [employer] infection vs. toxic/metabolic, hypoxic respiratory failure, resolving septic shock. off pathway. no improvement in mental status. will increase glycemic control. start tube feeds. renal function improving. need mental status to improve. will start weaning sedation. Highly complex and still at risk of dying from multiple organ dysfunction. Remains critically ill and off pathway. Plan: Neuro: Metabolic Encephalopathy- severe and persistent Discitis Possible [employer] Infection Acute CVA, multifocal areas of ischemia - RASS goal -2. - change to propofol from versed for goal RASS -2. - start amantadine - awaiting carotid dopplers - frequent neuro checks - abx per ID. - daily sedation vacations. - start aspirin - hold statin given elevation in LFTs. start when able. Resp: Acute hypoxic and hypercarbic respiratory failure- - vent bundle, hob at 30 degrees, nebs - wean fio2 for spo2 > 90% - early diuresis to help with persistent hypoxia. - hold SBTs until mental status improving. CV: Septic Shock - resolving. - d/c mivf. - off vasopressors - STEVEN negative for vegetations, small PFO. Renal: Acute kidney injury- resolving - continue Chiu - early diuresis to help pulmonary function. - daily bmp FEN/GI: Shock liver - persistent Morbid obesity Hypokalemia Volume overload Acute protein calorie malnutrition- moderate - d/c mivf - start glucerna tube feeds - add ICU electrolyte protocol - daily bmp - trend LFTs Heme/ID: Septic Shock - resolving. Discitis Possible healthcare associated aspiration pneumonia Strep bacteremia (recent blood cultures negative) - abx per ID - cultures NGTD - if discitis is truly the source and no improvements, could consider disc biopsy in the future. - abx per ID. on Rocephin, Levaquin, Zyvox, Flagyl IV. Follow-up cultures. Endocrine: Severe hyperglycemia Presumed Adrenal Insufficiency - start steroid taper now that she is out of shock - severe hyperglycemia despite high dose insulin drip - continue insulin drip Algorithm #4. - start Levemir 50 units SQ q12h (~30% of 24h needs) Prophylaxis: - pepcid - SCDs - SQH Lines: - 06/01 central line. keep today for electrolyte replacement and recently out of shock. - chiu Critical care time: 42 minutes, exclusive of separately billable procedures. Bang Anthony MD Jun 03, 2017 11:33
--- NOTE | 2017-06-03 11:54 | HHI.NPPN ---
Subjective History of Present Illness 66 year old female with Sepsis, possible Meningitis/Discitis, ARF Additional Remarks Patient remain intubated and sedated. Review of Systems General General Remarks Intubated and sedated. Objective Data Data Vital Signs Date Time Temp Pulse Resp B/P (MAP) Pulse Ox O2 Delivery O2 Flow Rate FiO2 06/03/17 09:35 98 50 06/03/17 06:00 84 06/03/17 04:20 98 50 06/03/17 04:00 50 06/03/17 04:00 87 06/03/17 04:00 98.1 84 27 102/50 (67) 98 06/03/17 04:00 100 Mechanical Ventilator 50 06/03/17 02:00 85 06/03/17 00:11 97 50 06/03/17 00:00 98.4 86 27 92/45 (61) 100 06/03/17 00:00 86 06/03/17 00:00 50 06/03/17 00:00 100 Mechanical Ventilator 50 06/02/17 22:00 86 06/02/17 20:40 100 50 06/02/17 20:00 50 06/02/17 20:00 83 06/02/17 20:00 100 Mechanical Ventilator 50 06/02/17 20:00 97.8 83 24 93/49 (64) 100 Arterial Line 06/02/17 18:00 93 06/02/17 17:00 100 100 06/02/17 16:00 100 Mechanical Ventilator 50 06/02/17 16:00 60 06/02/17 16:00 86 06/02/17 16:00 86 100/54 (69) 134/51 (78) 06/02/17 16:00 97.1 86 29 100/54 (69) 100 134/51 (78) 06/02/17 14:48 60 06/02/17 14:00 94 06/02/17 13:47 96 118/53 06/02/17 13:47 96 118/53 06/02/17 13:37 94 50 06/02/17 12:00 96 Mechanical Ventilator 50 06/02/17 12:00 90 06/02/17 12:00 99.0 90 28 101/50 (67) 96 123/53 (76) 06/02/17 12:00 50 06/02/17 12:00 90 101/50 (67) 123/53 (76) -: [id number]/03/[id number] Physical Exam General Appearance: Well Developed, Obese Neck Neck Exam: Neck Supple Pulmonary Resp Exam: Decreased Bases Cardiology CV Exam: Tachycardia Gastrointestinal/Abdomen GI Exam: Soft, Non-Tender, Bowel Sounds Present Extremeties Extremities Exam: Moderate Edema Assessment/Plan Problem List: (1) Acute renal failure ICD Codes: N17.9 - Acute kidney failure, unspecified Status: Acute Plan: Patient has septic shock and low blood pressure which can cause acute tubular necrosis I reviewed kidney ultrasound cyst but no hydro Urine lytes consistent with ATN intubated CPK high Rhabdo possible seizure? Creatinine improving. D/W Dr. Campbell, he want to give diuretics, follow the BMP closely. D/W the at bed side. (2) Septic shock ICD Codes: A41.9 - Sepsis, unspecified organism; R65.21 - Severe sepsis with septic shock Plan: Patient is on broad-spectrum antibiotics. Infectious disease is following the patient she's getting Zyvox, Ceftolozane, metronidazole, Micafungin. (3) Bacteremia due to group B Streptococcus ICD Codes: R78.81 - Bacteremia Plan: She does have streptococcal infection (4) SIRS (systemic inflammatory response syndrome) ICD Codes: R65.10 - Systemic inflammatory response syndrome (SIRS) of non- infectious origin without acute organ dysfunction Status: Acute Plan: Critical care is following (5) Acute hypercapnic respiratory failure ICD Codes: J96.02 - Acute respiratory failure with hypercapnia Plan: On O2 (6) Diabetes ICD Codes: E11.9 - Type 2 diabetes mellitus without complications Status: Acute Plan: Continue to monitor blood glucose Problem Qualifiers (1) Acute renal failure: Qualified Codes: N17.9 - Acute kidney failure, unspecified (2) Diabetes: Moi Jackson MD Jun 03, 2017 11:54
[2017-06-03] MEDS: ASPIRIN 325 MG TAB PO SCH (12:11)
[2017-06-03] MEDS: INSULIN DETEMIR 100 UNITS/ML VIAL SQ SCH ×2 (12:11→20:24)
--- NOTE | 2017-06-03 13:14 | HHI.IDPN ---
Subjective Subjective Remarks ID X cover for is a 66-year-old female presents confused and lethargic. Patient reportedly was recently seen today at an urgent care and received an injection for low back pain. Patient here denies headaches, chest pain or shortness of breath, abdominal pain or extremity pain. Patient does complain of low back pain. at bedside states that they're visiting from out of state for the past 3 months and will be returning back to their home state in a week. reports patient has chronic low back pain but this exacerbated over the last 24 hours starting yesterday morning. Patient was seen earlier today by her chiropractor for an adjustment and then was referred to an urgent care. Patient reportedly had a fever at the chiropractor's office and felt cold and clammy. At the urgent care patient was evaluated and reportedly had an injection of a nonsteroidal medication as she is diabetic and he did not want to give her a steroid injection. Patient went home about 1:00 PM she was drowsy so sat down in a chair and fell asleep according to the . He tried to awaken her at 4:30 and noticed that she was confusional and lethargic. He attempted to continue to awaken her over the next 2-3 hours and because she was not improving decided finally to call EMS to transport her to the emergency room. Patient and spouse denied any recent injury or fall. Patient was ambulatory this morning but this evening has difficulty elevating her lower extremities as well as she was generally extremely weak. Remains in ICU on vent. Itoleratiting CPAP STEVEN neg c CT pel wo abscess Temps defervesced. off pressors UO 30 cc/ hr this shift No rash. + liquid diarrhea. Antibiotics zerbaxa zyvox CFTX micafungin flagyl Lines Line sites with no e.o infection Past Medical History Diabetes Dyslipidemia Hypertension Chronic back pain sees a chiropracter. Chronic lower extremity swelling. Never had an ECHO before per pt and spouse. ? Sleep apnea. Allergies: Coded Allergies: No Known Allergies (Unverified , 05/20/17) Objective . Vital Signs Date Time Temp Pulse Resp B/P (MAP) Pulse Ox O2 Delivery O2 Flow Rate FiO2 06/03/17 12:00 97.8 88 36 131/63 (85) 95 06/03/17 12:00 88 06/03/17 10:00 82 06/03/17 09:35 98 50 06/03/17 06:00 84 06/03/17 04:20 98 50 06/03/17 04:00 50 06/03/17 04:00 87 06/03/17 04:00 98.1 84 27 102/50 (67) 98 06/03/17 04:00 100 Mechanical Ventilator 50 06/03/17 02:00 85 06/03/17 00:11 97 50 06/03/17 00:00 98.4 86 27 92/45 (61) 100 06/03/17 00:00 86 06/03/17 00:00 50 06/03/17 00:00 100 Mechanical Ventilator 50 06/02/17 22:00 86 06/02/17 20:40 100 50 06/02/17 20:00 50 06/02/17 20:00 83 06/02/17 20:00 100 Mechanical Ventilator 50 06/02/17 20:00 97.8 83 24 93/49 (64) 100 Arterial Line 06/02/17 18:00 93 06/02/17 17:00 100 100 06/02/17 16:00 100 Mechanical Ventilator 50 06/02/17 16:00 60 06/02/17 16:00 86 06/02/17 16:00 86 100/54 (69) 134/51 (78) 06/02/17 16:00 97.1 86 29 100/54 (69) 100 134/51 (78) 06/02/17 14:48 60 06/02/17 14:00 94 06/02/17 13:47 96 118/53 06/02/17 13:47 96 118/53 06/02/17 13:37 94 50 06/03/17 06/03/17 06/04/17 15:00 23:00 07:00 Intake Total 638 ml Balance 638 ml IV Total 638 ml . Laboratory Tests Test 06/02/17 09:46 06/03/17 04:30 White Blood Count 11.8 TH/MM3 10.2 TH/MM3 Red Blood Count 3.22 MIL/MM3 3.09 MIL/MM3 Hemoglobin 9.3 GM/DL 9.1 GM/DL Hematocrit 29.4 % 28.3 % Mean Corpuscular Volume 91.3 FL 91.8 FL Mean Corpuscular Hemoglobin 28.9 PG 29.6 PG Mean Corpuscular Hemoglobin Concent 31.6 % 32.3 % Red Cell Distribution Width 16.2 % 16.9 % Platelet Count 138 TH/MM3 133 TH/MM3 Mean Platelet Volume 10.8 FL 11.1 FL Neutrophils (%) (Auto) 79.7 % 84.2 % Lymphocytes (%) (Auto) 9.3 % 7.8 % Monocytes (%) (Auto) 8.6 % 6.8 % Eosinophils (%) (Auto) 1.1 % 0.1 % Basophils (%) (Auto) 1.3 % 1.1 % Neutrophils # (Auto) 9.4 TH/MM3 8.6 TH/MM3 Lymphocytes # (Auto) 1.1 TH/MM3 0.8 TH/MM3 Monocytes # (Auto) 1.0 TH/MM3 0.7 TH/MM3 Eosinophils # (Auto) 0.1 TH/MM3 0.0 TH/MM3 Basophils # (Auto) 0.2 TH/MM3 0.1 TH/MM3 CBC Comment AUTO DIFF AUTO DIFF Differential Total Cells Counted 100 100 Neutrophils % (Manual) 64 % 67 % Band Neutrophils % 21 % 21 % Lymphocytes % 4 % 2 % Monocytes % 5 % 4 % Eosinophils % 1 % Basophils % 2 % Neutrophils # (Manual) 10.4 TH/MM3 9.6 TH/MM3 Metamyelocytes 1 % 5 % Myelocytes 2 % 1 % Differential Comment FINAL DIFF MANUAL FINAL DIFF MANUAL Toxic Vacuolation PRESENT Platelet Estimate LOW LOW Platelet Morphology Comment NORMAL ENLARGED Toxic Granulation Laboratory Tests Test 06/02/17 09:46 06/03/17 04:30 Blood Urea Nitrogen 19 MG/DL 20 MG/DL Creatinine 1.56 MG/DL 1.25 MG/DL Random Glucose 216 MG/DL 233 MG/DL Total Protein 5.9 GM/DL 5.7 GM/DL Albumin 1.3 GM/DL 1.3 GM/DL Calcium Level 6.8 MG/DL 6.7 MG/DL Alkaline Phosphatase 88 U/L 118 U/L Aspartate Amino Transf (AST/SGOT) 232 U/L 239 U/L Alanine Aminotransferase (ALT/SGPT) 100 U/L 130 U/L Total Bilirubin 0.3 MG/DL 0.4 MG/DL Sodium Level 138 MEQ/L 138 MEQ/L Potassium Level 3.4 MEQ/L 3.0 MEQ/L Chloride Level 104 MEQ/L 105 MEQ/L Carbon Dioxide Level 21.5 MEQ/L 18.0 MEQ/L Anion Gap 13 MEQ/L 15 MEQ/L Estimat Glomerular Filtration Rate 33 ML/MIN 43 ML/MIN Protein Corrected Calcium 7.4 MG/DL 7.4 MG/DL Phosphorus Level 0.8 MG/DL Magnesium Level 1.2 MG/DL Total Creatine Kinase 906 U/L Creatine Kinase MB 3.2 NG/ML Creatine Kinase MB % 0.4 % Triglycerides Level 505 MG/DL Cholesterol Level 84 MG/DL LDL Cholesterol MG/DL HDL Cholesterol 8.1 MG/DL Cholesterol/HDL Ratio 10.37 RATIO Microbiology Date/Time Source Procedure Growth Status 06/01/17 12:08 Blood Peripheral Blood Fungal Culture Pending Received 06/01/17 12:08 Blood Peripheral Blood Fungal Culture Pending Received 06/01/17 14:35 Cerebral Spinal Fluid Lumbar Puncture Fungal Smear - Final NO FUNGAL ELEMENTS SEEN. Resulted 06/01/17 14:35 Cerebral Spinal Fluid Lumbar Puncture Fungal Culture Pending Resulted 06/01/17 14:35 Cerebral Spinal Fluid Lumbar Puncture Acid Fast Stain - Final NO ACID FAST BACILLI SEEN Resulted 06/01/17 14:35 Cerebral Spinal Fluid Lumbar Puncture Mycobacterial Culture Pending Resulted 06/01/17 14:35 Cerebral Spinal Fluid Lumbar Puncture Gram Stain - Final Resulted 06/01/17 14:35 Cerebral Spinal Fluid Lumbar Puncture CSF Culture - Preliminary NO GROWTH IN 48 HOURS. Resulted 06/01/17 03:50 Sputum Endotracheal Gram Stain - Final Complete 06/01/17 03:50 Sputum Endotracheal Sputum Culture - Final MODERATE GROWTH NORMAL RESPIRATORY KLEBER Complete Imaging Last Impressions Pelvis CT 06/02/17 0000 Signed Impressions: Service Date/Time: Friday, June 02, 2017 17:29 - CONCLUSION: No evidence of intra-abdominal abscess collection. Nikita Damon MD Chest X-Ray 06/02/17 0000 Signed Impressions: Service Date/Time: Friday, June 02, 2017 15:14 - CONCLUSION: 1. Cardiomegaly. 2. Perihilar infiltrates consistent with mild to moderate pulmonary vascular congestion versus pneumonia. 3. Small right pleural effusion. 4. Multiple tubes and lines are stable. Nikita Damon MD Abdomen X-Ray 06/02/17 0000 Signed Impressions: Service Date/Time: Friday, June 02, 2017 15:20 - CONCLUSION: OG tube in the stomach. Mike Davis MD FACR Lumbar Spine MRI 06/01/17 0000 Signed Impressions: Service Date/Time: May 19:15 - CONCLUSION: 1. Atypical signal changes remain in the L3-4 disc and adjacent endplates The findings remain nonspecific. There is a moderate size posterior central epidural mass with mass effect on the anterior thecal sac. There is moderate central canal stenosis. The differential diagnosis includes disc protrusion versus small epidural abscess. A contrast enhanced lumbar spine study may be helpful for further evaluation. 2. Mild disc bulges at L2-3 and L4-5 levels with mild flattening the anterior thecal sac. Austin Orellana MD Chest CT 06/01/17 0000 Signed Impressions: Service Date/Time: May 18:49 - CONCLUSION: 1. Dense consolidation in both posterior lower lobes right greater than left with air bronchograms. This could represent pneumonia. 2. Small bilateral pleural effusions. 3. Mild cardiomegaly. Austin Orellana MD Brain MRI 06/01/17 0000 Signed Impressions: Service Date/Time: May 19:15 - CONCLUSION: 1. Multiple new small scattered punctate areas of restricted diffusion consistent with small areas of infarction. This could be secondary to emboli. 2. No acute hemorrhage or mass effect. 3. Acute sinusitis in the ethmoidal air cells and sphenoid sinus with air fluid levels. Austin Orellana MD Abdomen/Pelvis CT 06/01/17 0000 Signed Impressions: Service Date/Time: May 18:49 - CONCLUSION: 1. Suboptimal opacification of the bowel with the distal small bowel unopacified. There is a questionable abnormal gas collection in the anterior lower pelvis. An abscess is not excluded. A repeat study is recommended after additional oral contrast is given. 2. Consolidation in both posterior lung bases with small pleural effusions. Austin Orellana MD Renal Ultrasound 05/31/17 0000 Signed Impressions: Service Date/Time: Wednesday, May 31, 2017 20:47 - CONCLUSION: 1. Suboptimal exam with visualization. 2. No evidence of hydronephrosis. 3. Cyst extending off right kidney. Austin Orellana MD Lower Extremity Ultrasound 05/29/17 0000 Signed Impressions: Service Date/Time: Monday, May 29, 2017 13:10 - CONCLUSION: 1. No evidence of deep venous thrombosis. Monty Gross MD Tumor Localization 05/26/17 0000 Signed Impressions: Service Date/Time: Friday, May 26, 2017 13:36 - CONCLUSION: No abnormal uptake identified to suggest infection. Nikita Damon MD Liver Ultrasound 05/21/17 0000 Signed Impressions: Service Date/Time: Sunday, May 21, 2017 10:32 - CONCLUSION: 1. Hepatic steatosis. 2. Gallstones 3. Limited evaluation of the right kidney. Santana Lamar MD Head CT [id number] Signed Impressions: Service Date/Time: Saturday, May 20, 2017 19:55 - CONCLUSION: 1. No acute findings. Retention cyst right maxillary sinus. Jakob Scruggs MD Physical Exam GENERAL: Obese patient. sedated int'd on mech vent SKIN: No rashes. Ecchymosis noted. No Janeway lesion no plinter hmrgs HEAD: Atraumatic. Normocephalic. EYES: Pupils equal round and reactive. Extraocular motions intact. No scleral icterus. No injection or drainage. ENT: Nose without bleeding, purulent drainage or septal hematoma. Throat without erythema, tonsillar hypertrophy or exudate. Uvula midline. Airway patent. NECK: Large neck, intubated. Supple CARDIOVASCULAR: Regular rate and rhythm without murmurs. well perused perifery with good refill RESPIRATORY: Breath sounds equal bilaterally.Clear to ayusculttion anteriorly GASTROINTESTINAL: Abdomen soft, non-tender, nondistended. Obese. No hepatosplenomegaly Incontinent of dark liquid stool chiu in place with concentated urine in chiu bag (yulissa) MUSCULOSKELETAL: Extremities without clubbing, cyanosis. Marked tight edema, generalysed anasarca, 4+ NEUROLOGICAL: Sedated, on versed, moves extremities on painful stimuli both upper and lower extremities. Psych unable to assess IV line sites with no e/o infection. Assessment & Plan Remarks Septic Shock with MODS HCAP/plus aspiration pneumonia. nl resp kleber on sputum clx Meningitis/discitis(likely partially treated or parameningeal focus related CSF changes) New onset seizures likely secondary to PIGGYBACK CLERK infection process. Strep Grp B bacteremia sources: ? GI, skin as source. STEVEN neg, but done 2 weeks after abx were started ? embolic strokes Bilateral R> L LE cellulitis: improved. Acute renal failure UO improving. GFR > 40 Acute resp failure: pulm edema,aspiration PNA, sleep apnea. Elevated CK: ? infective myositis related to discitis. Abnormal LFTs: sepsis related, ? rhabdo elevated CK. HTN DM2 uncontrolled. Obesity BMI 49.7 kg/m2 Recs: Continue Ceftriaxone IV q12 for possible meningitis/epidural abscess. dc Zerbaxa IV dc Micafungin IV (for possible fungemia, risk factor has been on broad spectrum antibiotics) Continue Flagyl IV for now ( aspiration coverage) Repeat MRI L spine with contrast. dw Radiologist Repeat MRI brain with multiple new emboli ? septic PIGGYBACK [employer]ERK emboli. Follow clinically. d/w RN, . D.w pts spouse in room change in condition and above new plan for the day. Critical thinking and decision making. Time spent in excess of 40 mins. Gloria Vieira MD Jun 03, 2017 13:14
[2017-06-03] MEDS: MAGNESIUM SULFATE INJ 2 GM in SODIUM CHLORIDE 0.9% INJ 96 ML IV PRN (13:22)
[2017-06-03] MEDS: POTASSIUM PHOSPHATE INJ 30 MMOL in SODIUM CHLOR 0.9% 250 ML INJ 250 ML IV PRN (13:23)
[2017-06-03] MEDS: MIDAZOLAM 100 MG/100 ML INJ 100 ML IV PRN (15:04)
--- NOTE | 2017-06-03 15:09 | HHI.PR ---
cc: Jakob Hernandez MD Subjective Subjective Notes DAILY PROGRESS NOTE FOR SURGICAL ATTENDING, DR. JAKOB HERNANDEZ at bedside Patient on the ventilator Going down to MRI for MRI of back Objective Vitals/I&O Vital Signs Date Time Temp Pulse Resp B/P (MAP) Pulse Ox O2 Delivery O2 Flow Rate FiO2 06/03/17 14:00 85 06/03/17 13:00 96 50 06/03/17 12:00 97.8 36 131/63 (85) 06/03/17 04:00 Mechanical Ventilator 05/31/17 20:29 30.00 Labs Laboratory Tests Test 06/03/17 04:30 06/03/17 13:00 White Blood Count 10.2 Red Blood Count 3.09 Hemoglobin 9.1 Hematocrit 28.3 Mean Corpuscular Volume 91.8 Mean Corpuscular Hemoglobin 29.6 Mean Corpuscular Hemoglobin Concent 32.3 Red Cell Distribution Width 16.9 Platelet Count 133 Mean Platelet Volume 11.1 Neutrophils (%) (Auto) 84.2 Lymphocytes (%) (Auto) 7.8 Monocytes (%) (Auto) 6.8 Eosinophils (%) (Auto) 0.1 Basophils (%) (Auto) 1.1 Neutrophils # (Auto) 8.6 Lymphocytes # (Auto) 0.8 Monocytes # (Auto) 0.7 Eosinophils # (Auto) 0.0 Basophils # (Auto) 0.1 CBC Comment AUTO DIFF Differential Total Cells Counted 100 Neutrophils % (Manual) 67 Band Neutrophils % 21 Lymphocytes % 2 Monocytes % 4 Neutrophils # (Manual) 9.6 Metamyelocytes 5 Myelocytes 1 Differential Comment FINAL DIFF MANUAL Toxic Granulation Platelet Estimate LOW Platelet Morphology Comment ENLARGED Blood Urea Nitrogen 20 Creatinine 1.25 Random Glucose 233 Total Protein 5.7 Albumin 1.3 Calcium Level 6.7 Phosphorus Level 0.8 Magnesium Level 1.2 Alkaline Phosphatase 118 Aspartate Amino Transf (AST/SGOT) 239 Alanine Aminotransferase (ALT/SGPT) 130 Total Bilirubin 0.4 Sodium Level 138 Potassium Level 3.0 Chloride Level 105 Carbon Dioxide Level 18.0 Anion Gap 15 Estimat Glomerular Filtration Rate 43 Protein Corrected Calcium 7.4 Total Creatine Kinase 906 Creatine Kinase MB 3.2 Creatine Kinase MB % 0.4 Triglycerides Level 505 Cholesterol Level 84 LDL Cholesterol HDL Cholesterol 8.1 Cholesterol/HDL Ratio 10.37 Date/Time Source Procedure Growth Status 06/01/17 12:08 Blood Peripheral Blood Fungal Culture Pending Received 06/01/17 12:08 Blood Peripheral Blood Fungal Culture Pending Received 06/01/17 14:35 Cerebral Spinal Fluid Lumbar Puncture Fungal Smear - Final NO FUNGAL ELEMENTS SEEN. Resulted 06/01/17 14:35 Cerebral Spinal Fluid Lumbar Puncture Fungal Culture Pending Resulted 06/01/17 03:50 Sputum Endotracheal Gram Stain - Final Complete 06/01/17 03:50 Sputum Endotracheal Sputum Culture - Final MODERATE GROWTH NORMAL RESPIRATORY BRAYAN Complete 05/30/17 13:30 Urine Catheterized Urine Urine Culture - Final NO GROWTH IN 48 HOURS. Complete Radiology Last [address] 06/02/17 0000 Signed Impressions: Service Date/Time: Friday, June 02, 2017 17:29 - CONCLUSION: No evidence of intra-abdominal abscess collection. Nikita Damon MD Chest X-Ray 06/02/17 Signed Impressions: Service Date/Time: Friday, June 02, 2017 15:14 - CONCLUSION: 1. Cardiomegaly. 2. Perihilar infiltrates consistent with mild to moderate pulmonary vascular congestion versus pneumonia. 3. Small right pleural effusion. 4. Multiple tubes and lines are stable. Nikita Damon MD Abdomen X-Ray 06/02/17 Signed Impressions: Service Date/Time: Friday, June 02, 2017 15:20 - CONCLUSION: OG tube in the stomach. Mike Davis MD FACR Lumbar Spine MRI 06/01/17 Signed Impressions: Service Date/Time: May 19:15 - CONCLUSION: 1. Atypical signal changes remain in the L3-4 disc and adjacent endplates The findings remain nonspecific. There is a moderate size posterior central epidural mass with mass effect on the anterior thecal sac. There is moderate central canal stenosis. The differential diagnosis includes disc protrusion versus small epidural abscess. A contrast enhanced lumbar spine study may be helpful for further evaluation. 2. Mild disc bulges at L2-3 and L4-5 levels with mild flattening the anterior thecal sac. Austin Orellana MD Chest CT 06/01/17 Signed Impressions: Service Date/Time: May 18:49 - CONCLUSION: 1. Dense consolidation in both posterior lower lobes right greater than left with air bronchograms. This could represent pneumonia. 2. Small bilateral pleural effusions. 3. Mild cardiomegaly. uAstin Orellana MD Brain MRI 06/01/17 Signed Impressions: Service Date/Time: May 19:15 - CONCLUSION: 1. Multiple new small scattered punctate areas of restricted diffusion consistent with small areas of infarction. This could be secondary to emboli. 2. No acute hemorrhage or mass effect. 3. Acute sinusitis in the ethmoidal air cells and sphenoid sinus with air fluid levels. Austin Orellana MD Abdomen/Pelvis CT 06/01/17 Signed Impressions: Service Date/Time: May 18:49 - CONCLUSION: 1. Suboptimal opacification of the bowel with the distal small bowel unopacified. There is a questionable abnormal gas collection in the anterior lower pelvis. An abscess is not excluded. A repeat study is recommended after additional oral contrast is given. 2. Consolidation in both posterior lung bases with small pleural effusions. Austin Orellana MD Cardiovascular: Other Lungs: Other (on ventilator) Abdomen: Non-distended, Non-tender, BS normal Extremities: Perfused, SCD's on A/P Problem List: (1) Septic embolism ICD Codes: I26.90 - Septic pulmonary embolism without acute cor pulmonale (2) Diabetes ICD Codes: E11.9 - Type 2 diabetes mellitus without complications Status: Acute (3) Altered mental status ICD Codes: R41.82 - Altered mental status, unspecified Status: Acute (4) Septic shock ICD Codes: A41.9 - Sepsis, unspecified organism; R65.21 - Severe sepsis with septic shock (5) Acute renal failure ICD Codes: N17.9 - Acute kidney failure, unspecified Status: Acute (6) SIRS (systemic inflammatory response syndrome) ICD Codes: R65.10 - Systemic inflammatory response syndrome (SIRS) of non- infectious origin without acute organ dysfunction Status: Acute (7) Bacteremia due to group B Streptococcus ICD Codes: R78.81 - Bacteremia (8) Morbid obesity ICD Codes: E66.01 - Morbid (severe) obesity due to excess calories (9) Cerebral septic emboli ICD Codes: I76 - Septic arterial embolism; I66.9 - Occlusion and stenosis of unspecified cerebral artery Assessment and Plan 66-year-old female was recently admitted for some back pain and mental status changes found to have septic emboli on an MR of her brain. No intra-abdominal source found. Going to get MRI back to see if this is the source of her septic shock. From a surgery stand for she is on the ventilator start tube feeds via NG tube. No surgical intervention from general surgery at this time Discussed with family at bedside Attending Statement NOTE FOR SURGICAL ATTENDING, DR. JAKOB HERNANDEZ I attest that I had a [id number] encounter with the patient on the same day, and personally performed and documented my assessment and findings in the medical record. The following services were provided during this hospital visit: Chart data review, vital sign assessments/reviewing monitor data Review of consultations notes if present. Medication orders/review and/or management Ordering and/or reviewing lab tests Ordering and/or interpreting/reviewing x-rays and/or diagnostic studies Care of the patient and discussion of the patient with the care team Documentation time To help prompt me to consider important information that might be impacting today's encounter and assessment, information from prior notes written by myself or my colleagues may have been "brought forward/copy and pasted" into today's note. Problem Qualifiers (1) Diabetes: (2) Altered mental status: Qualified Codes: R41.82 - Altered mental status, unspecified (3) Acute renal failure: Qualified Codes: N17.9 - Acute kidney failure, unspecified Jakob Hernandez MD Jun 03, 2017 15:09
[2017-06-03] MEDS ORDERED: GADOBENATE DIM PF 529 MG/ML 20ML VIAL (for RAD MRI) IV ONE (16:00)
[2017-06-03 16:03] LABS: C. DIFF EPI 027 PRESUMPTIVE NEGATIVE (NEGATIVE)
--- NOTE | 2017-06-03 16:55 | RADRPT ---
EXAM DATE/TIME: 06/03/2017 15:42 [facility] COMPARISON: MRI LUMBAR SPINE W/O CONTRAST, June 01, 2017, 19:15. WBC WB CERETEC, May 26, 2017, 13:36. M RI LUMBAR SPINE W/O CONTRAST, May 25, 2017, 19:02. INDICATIONS : Abscess. CONTRAST: 20 cc Multihance (gadobenate) IV MEDICAL HISTORY : Diabetes mellitus type 2. Hypertension. Renal failure, acute. SURGICAL HISTORY : section. ENCOUNTER: Initial ACUITY: 2 weeks PAIN SCORE: 5/10 LOCATION: [facility] TECHNIQUE: Multiplanar multisequence MRI of the lumbar spine was performed with and without contrast. FINDINGS: Persistent liquefactive appearing L3/L4 disc and with an associated 6 x 12 x 20 mm subligamentous rig ht paracentral collection, not significantly changed from the noncontrast studies. A small amount of fluid collected in the retroperitoneal soft tissues to the left of the disc also appears unchanged. N o significant disc or fluid collection wall enhancement post gadolinium administration. Heterogeneous signal of the L3 and L4 vertebral bodies again noted that are similar to before and with associated central areas of non-enhancement. The rest of the L3 and L4 vertebral bodies have mild, reactive appe aring enhancement. CONCLUSION: The MRI findings after contrast administration are not convincing for presence of active infection wi thin the L3/L4 disc, adjacent vertebral bodies or epidural space/adjacent soft tissues. Santana Eric MD on June 03, 2017 at 16:39 Board Certified Radiologist. This report was verified electronically.
[2017-06-03] MEDS: AMANTADINE HCL SOLN 100 MG/10 ML UDC PO SCH (18:04)
[2017-06-03] MEDS: MIDAZOLAM 100 MG/NS 100 ML DRIP Premix IV PRN (23:16)
[2017-06-04] VITALS (17 sets, daily range): BP systolic 120–160; BP diastolic 58–72; PULSE 75–93; RESP 23–27; TEMP 97.9–98.9; O2SAT 95–100
[2017-06-04] MEDS: INSULIN REGULAR (IV INFUSION) 100 UNITS in SODIUM CHLORIDE 0.9% INJ 99 ML IV PRN ×3 (03:14→22:08)
[2017-06-04] MEDS: CHLORHEXIDINE GLUCONATE 2 % 1 PACK (2 CLOTHS) TOP SCH ×2 (03:17→21:01)
[2017-06-04] MEDS: metroNIDAZOLE 500 MG INJ 100 ML IV SCH ×3 (05:16→20:37)
[2017-06-04] MEDS: cefTRIAXone INJ 2,000 MG in SODIUM CHLORIDE 0.9% INJ 100 ML IV SCH ×2 (05:17→17:20)
[2017-06-04] MEDS: HYDROCORTISONE SOD SUCCINATE 100 MG VIAL IV PUSH SCH ×2 (05:18→20:38)
[2017-06-04] MEDS: HEPARIN SODIUM - SQ 10,000 UNITS/ML VIAL SQ SCH ×3 (05:18→20:37)
[2017-06-04] MEDS: PHENYTOIN INJ 100 MG/2 ML VIAL IV SCH ×3 (05:18→20:38)
[2017-06-04] MEDS: AMANTADINE HCL SOLN 100 MG/10 ML UDC PO SCH ×2 (05:18→11:22)
[2017-06-04] MEDS: MIDAZOLAM 100 MG/NS 100 ML DRIP Premix IV PRN (05:22)
[2017-06-04 06:07] LABS: AUTOMATED NEUTROPHIL # 6.6 TH/MM3 (1.8-7.7); BASOPHIL # 0.1 TH/MM3 (0-0.2); HEMATOCRIT 28.3 % (35.0-46.0); LYMPH % 9.4 % (9.0-44.0); LYMPHOCYTE # 0.8 TH/MM3 (1.0-4.8); MEAN CELL VOLUME 91.3 FL (80.0-100.0); MEAN CORPUSCULAR HEMOGLOBIN 29.5 PG (27.0-34.0); MEAN CORPUSCULAR HGB CONC 32.3 % (32.0-36.0); MONO % 8.3 % (0.0-8.0); NEUT % 81.3 % (16.0-70.0); PLATELET COUNT 147 TH/MM3 (150-450); RED CELL DISTRIBUTION WIDTH 16.5 % (11.6-17.2); WHITE BLOOD COUNT 8.1 TH/MM3 (4.0-11.0)
[2017-06-04 06:16] LABS: HEMO FLAGS AUTO DIFF
[2017-06-04 06:30] LABS: BICARBONATE 18.6 MEQ/L (21.0-32.0)
[2017-06-04] MEDS ORDERED: FUROSEMIDE 40 MG/4 ML VIAL IV PUSH ONE (06:30)
[2017-06-04 06:32] LABS: POTASSIUM 2.8 MEQ/L (3.5-5.1)
[2017-06-04] MEDS: POTASSIUM CHLOR 40 MEQ PREMIX 100 ML IV PRN (06:36)
[2017-06-04 06:48] LABS: CALCIUM-PROTEIN CORRECTED 7.8 MG/DL (8.5-10.1)
--- NOTE | 2017-06-04 07:51 | HHI.CCPN ---
Subjective Remarks/Hospital Course 66-year-old female presents confused and lethargic. Patient reportedly was recently seen today at an urgent care and received an injection for low back pain. Patient here denies headaches, chest pain or shortness of breath, abdominal pain or extremity pain. Patient does complain of low back pain. at bedside states that they're visiting from out of state for the past 3 months and will be returning back to their home state in a week. reports patient has chronic low back pain but this exacerbated over the last 24 hours starting yesterday morning. Patient was seen earlier today by her chiropractor for an adjustment and then was referred to an urgent care. Patient reportedly had a fever at the chiropractor's office and felt cold and clammy. At the urgent care patient was evaluated and reportedly had an injection of a nonsteroidal medication as she is diabetic and he did not want to give her a steroid injection. Patient went home about 1:00 PM she was drowsy so sat down in a chair and fell asleep according to the . He tried to awaken her at 4:30 and noticed that she was confusional and lethargic. He attempted to continue to awaken her over the next 2-3 hours and because she was not improving decided finally to call EMS to transport her to the emergency room. Patient and spouse denied any recent injury or fall. Patient was ambulatory this morning but this evening has difficulty elevating her lower extremities as well as she was generally extremely weak. 05/21 Patient is on BIPAP 12/5 with 45% FIO2. Afebrile. Awake. Renal function is improving with Cr: 1.87 from 2.74. 05/22 No events overnight. Patient is more awake and alert off BIPAP. Renal function is improving with Cr: 1.07 from 1.87. delayed note entry. consulted and seen at ~1500. RECONSULT NOTE: 05/30: reconsulted for worsening hypoxemia. now on 6L facemask. please refer to prior consult note for detailed medical history. In brief, 66yF lethargic female, back pain after injection, ? discitis/osteo, on abx for group B strep, worsening fever, tachycardia, tachypnea, o2 requirement to 6L facemask and RR up to 40s. patient unable to provide additional history but does appear in distress. 05/31: Patient remains encephalopathic, on high flow O2 via nasal cannula, this morning was on 60 L/m 55% FiO2. Subsequently has dropped to 30 L/m to extubate percent FiO2. Given 80 mg IV Lasix with no response. Subsequently given Bumex 2 mg IV push and started on Bumex drip at 1 mg/h to attempt to diurese in an effort to improve respiratory status however has not had any increase in urine output with Bumex drip. Creatinine came back elevated at 2.13. Suspect acute kidney injury/ATN which may be a reason for poor response to diuretics. She also spiked a temperature of 103 for which IV Ofirmev was ordered. 06/01: intubated overnight and hypotensive requiring vasopressors. now remains in shock on 2 vasopressors. bedside critical care echo demonstrates hyperdynamic LV with completely collapsed IVC. gave 2L bolus and started on mivf @ 100 cc/hr. still spiking fevers. discussed with Dr. Portillo and plan to repeat LP as well as cultures and imaging to look for source. clinically worse today. 06/02: off vasopressors. remains intubated and sedated, very encephalopathic. MRI with new punctate strokes. STEVEN being done today. also ? abscess in the pelvis of unknown origin, maybe contained diverticulitis? CT guided drainage. although some improvements in hemodynamics, no improvements in vent or encephalopathy. off pathway. 06/03: IR re-ct scan without any evidence of abdominal abscess. blood glucose still not controlled despite high dose algorithm. wbc downtrending. 06/04: wbc continues to downtrend. Cr improving as well. very hypokalemic despite aggressive replacement. blood glucose now < 200, but using high dose insulin drip and levemir. encephalopathy persists. Objective Vital Signs Date Time Temp Pulse Resp B/P (MAP) Pulse Ox O2 Delivery O2 Flow Rate FiO2 06/04/17 06:00 83 06/04/17 04:39 97 50 06/04/17 04:00 97.9 27 140/62 (88) 06/03/17 20:00 Mechanical Ventilator 05/31/17 20:29 30.00 Intake and Output 06/04/17 06/04/17 06/05/17 08:00 16:00 00:00 Intake Total 698 ml Output Total 400 ml Balance 298 ml Result Diagram: 06/04/1730 06/04/1730 Imaging Last Impressions Liver Ultrasound 05/21/17 0000 Signed Impressions: Service Date/Time: Sunday, May 21, 2017 10:32 - CONCLUSION: 1. Hepatic steatosis. 2. Gallstones 3. Limited evaluation of the right kidney. Santana Lamar MD Chest X-Ray 05/21/17 0000 Signed Impressions: Service Date/Time: Sunday, May 21, 2017 06:17 - CONCLUSION: 1. Limited suboptimal study with motion artifact. 2. No definite acute cardiac pulmonary disease. Austin Orellana MD Head CT [id number]/[id number] Signed Impressions: Service Date/Time: Saturday, May 20, 2017 19:55 - CONCLUSION: 1. No acute findings. Retention cyst right maxillary sinus. Jakob Scruggs MD Objective Remarks GENERAL: Patient is 66 yo lying in bed, intubated, sedated. SKIN: Warm and dry. HEAD: Normocephalic. EYES: No scleral icterus. No injection or drainage. NECK: trachea midline. large neck prevents accurate assessment of JVD. CARDIOVASCULAR: tachycardic rate, regular rhythm. RESPIRATORY: intubated, fio2 50%, coarse breath sounds bilaterally. GASTROINTESTINAL: Abdomen soft, non-tender, nondistended. MUSCULOSKELETAL: No cyanosis, or edema. Neuro: RASS -4. CAM +. withdraws to pain. does not follow commands. Procedures None Date of Insertion: May 25, 2017 A/P Assessment and Plan Assessment: 66yF with encephalopathy thought to be secondary to BLOCK TRADER infection vs. toxic/metabolic, hypoxic respiratory failure, resolving sepsis. off pathway. no improvement in mental status. will increase glycemic control. aggressively replace potassium. volume overloaded this AM and will start forced diuresis given improving renal function. minimize sedation if possible. Highly complex and still at risk of dying from multiple organ dysfunction. Remains critically ill and off pathway. Plan: Neuro: Metabolic Encephalopathy- severe and persistent Discitis Possible BLOCK TRADER Infection Acute CVA, multifocal areas of ischemia - RASS goal -2. - versed. add fentanyl. - amantadine for wakefulness - carotid dopplers: pending. - frequent neuro checks - abx per ID. - daily sedation vacations. - aspirin - hold statin given elevation in LFTs. start when able. Resp: Acute hypoxic and hypercarbic respiratory failure - persistent. - vent bundle, hob at 30 degrees, nebs - wean fio2 for spo2 > 90% - forced diuresis, lasix 40mg iv x 1. - hold SBTs until mental status improving. CV: Septic Shock - resolved. - off vasopressors - STEVEN negative for vegetations, small PFO. Renal: Acute kidney injury- resolving - continue Reid - forced diuresis with lasix today. - daily bmp FEN/GI: Shock liver - persistent Morbid obesity Hypokalemia Volume overload Acute protein calorie malnutrition- moderate - glucerna tube feeds - ICU electrolyte protocol - daily bmp - trend LFTs Heme/ID: Septic Shock - resolved Discitis Possible healthcare associated aspiration pneumonia Strep bacteremia (recent blood cultures negative) - abx per ID - cultures NGTD - if discitis is truly the source and no improvements, could consider disc biopsy in the future. - abx per ID. Zerbaxa and Micafungin d/c'd 06/03. continues on Rocephin and Flagyl. - all cultures NGTD so far. Endocrine: Severe hyperglycemia Presumed Adrenal Insufficiency - steroid taper - severe hyperglycemia despite high dose insulin drip - continue insulin drip Algorithm #4. - continue Levemir 50 units SQ q12h (~30% of 24h needs) Prophylaxis: - pepcid - SCDs - SQH Lines: - 06/01 central line. keep today for electrolyte replacement and recently out of shock. - Bang Plasencia MD Jun 04, 2017 07:51
[2017-06-04] MEDS ORDERED: POTASSIUM CHLORIDE 25 MEQ EFFERVESCENT TAB PO ONE (08:00)
[2017-06-04] MEDS: DOCUSATE SODIUM 50 MG/SENNA 8.6 MG TAB PO SCH ×2 (09:03→20:38)
[2017-06-04] MEDS: FAMOTIDINE 20 MG/2 ML VIAL IV PUSH SCH ×2 (09:03→20:37)
[2017-06-04] MEDS: INSULIN DETEMIR 100 UNITS/ML VIAL SQ SCH ×2 (09:03→20:37)
[2017-06-04] MEDS: NYSTATIN 100,000 U/GM PWD 15 GM BTL TOPICAL SCH ×2 (09:04→20:39)
[2017-06-04] MEDS: ASPIRIN 325 MG TAB PO SCH (09:04)
[2017-06-04] MEDS: SODIUM CHLORIDE 0.9% FLUSH 10 ML FLUSH IV FLUSH SCH ×2 (09:05→20:38)
[2017-06-04] MEDS: levETIRAcetam INJ 750 MG in SODIUM CHLORIDE 0.9% INJ 100 ML IV SCH ×2 (09:05→20:38)
--- NOTE | 2017-06-04 09:12 | HHI.GIFU ---
Subjective Remarks Followup visit for possible abdominal abscess?, questionable diverticulitis, and abnormal LFTs. Patient in bed, sedated on vent. at bedside. (Arabella Balderrama) Objective Vitals I&O Vital Signs Date Time Temp Pulse Resp B/P (MAP) Pulse Ox O2 Delivery O2 Flow Rate FiO2 06/04/17 06:00 83 06/04/17 04:39 97 50 06/04/17 04:00 97.9 82 27 140/62 (88) 95 06/04/17 04:00 82 06/04/17 04:00 50 06/04/17 02:00 81 06/04/17 00:00 98.9 82 27 120/58 (78) 98 06/04/17 00:00 82 06/04/17 00:00 50 06/03/17 23:58 100 50 06/03/17 22:00 80 06/03/17 20:47 100 50 06/03/17 20:00 97.7 80 25 112/53 (72) 98 06/03/17 20:00 80 06/03/17 20:00 50 06/03/17 20:00 95 Mechanical Ventilator 50 06/03/17 18:00 79 06/03/17 16:00 95 Mechanical Ventilator 90 06/03/17 14:00 85 06/03/17 13:00 96 50 06/03/17 12:00 50 06/03/17 12:00 97.8 88 36 131/63 (85) 95 06/03/17 12:00 98 Mechanical Ventilator 100 06/03/17 12:00 88 06/03/17 10:00 82 06/03/17 09:35 98 50 I/O 06/03/17 06/03/17 06/03/17 06/04/17 06/04/17 06/04/17 07:00 15:00 23:00 07:00 15:00 23:00 Intake Total 1750 ml 1345.5 ml 428 ml 905.5 ml Output Total 290 ml 325 ml 400 ml Balance 1460 ml 1345.5 ml 103 ml 505.5 ml IV Total 1750 ml 1345.5 ml 428 ml 905.5 ml Output Urine Total 290 ml 325 ml 400 ml # Bowel Movements 2 Laboratory Laboratory Tests Test 06/03/17 13:00 06/04/17 05:30 06/04/17 08:00 Stool C. difficile Toxin (PCR) NEGATIVE Stl C. difficile Toxin Epiderm 027 PRESUMPTIVE NEGATIVE White Blood Count 8.1 Red Blood Count 3.10 Hemoglobin 9.1 Hematocrit 28.3 Mean Corpuscular Volume 91.3 Mean Corpuscular Hemoglobin 29.5 Mean Corpuscular Hemoglobin Concent 32.3 Red Cell Distribution Width 16.5 Platelet Count 147 Mean Platelet Volume 10.4 Neutrophils (%) (Auto) 81.3 Lymphocytes (%) (Auto) 9.4 Monocytes (%) (Auto) 8.3 Eosinophils (%) (Auto) 0.0 Basophils (%) (Auto) 1.0 Neutrophils # (Auto) 6.6 Lymphocytes # (Auto) 0.8 Monocytes # (Auto) 0.7 Eosinophils # (Auto) 0.0 Basophils # (Auto) 0.1 CBC Comment AUTO DIFF Blood Urea Nitrogen 21 Creatinine 1.14 Random Glucose 209 Total Protein 5.8 Calcium Level 7.1 Sodium Level 140 Potassium Level 2.8 Chloride Level 107 Carbon Dioxide Level 18.6 Anion Gap 14 Estimat Glomerular Filtration Rate 48 Protein Corrected Calcium 7.8 Date/Time Source Procedure Growth Status 06/01/17 12:08 Blood Peripheral Blood Fungal Culture Pending Received 06/01/17 12:08 Blood Peripheral Blood Fungal Culture Pending Received 06/01/17 14:35 Cerebral Spinal Fluid Lumbar Puncture Fungal Smear - Final NO FUNGAL ELEMENTS SEEN. Resulted 06/01/17 14:35 Cerebral Spinal Fluid Lumbar Puncture Fungal Culture Pending Resulted 06/01/17 03:50 Sputum Endotracheal Gram Stain - Final Complete 06/01/17 03:50 Sputum Endotracheal Sputum Culture - Final MODERATE GROWTH NORMAL RESPIRATORY BRAYAN Complete 05/30/17 13:30 Urine Catheterized Urine Urine Culture - Final NO GROWTH IN 48 HOURS. Complete Imaging Last Impressions Lumbar Spine MRI 06/03/17 0000 Signed Impressions: Service Date/Time: Saturday, June 03, 2017 15:42 - CONCLUSION: The MRI findings after contrast administration are not convincing for presence of active infection within the L3/L4 disc, adjacent vertebral bodies or epidural space/adjacent soft tissues. Santana Eric MD Pelvis CT 06/02/17 0000 Signed Impressions: Service Date/Time: Friday, June 02, 2017 17:29 - CONCLUSION: No evidence of intra-abdominal abscess collection. Nikita Damon MD Chest X-Ray 06/02/17 0000 Signed Impressions: Service Date/Time: Friday, June 02, 2017 15:14 - CONCLUSION: 1. Cardiomegaly. 2. Perihilar infiltrates consistent with mild to moderate pulmonary vascular congestion versus pneumonia. 3. Small right pleural effusion. 4. Multiple tubes and lines are stable. Nikita Damon MD Abdomen X-Ray 06/02/17 0000 Signed Impressions: Service Date/Time: Friday, June 02, 2017 15:20 - CONCLUSION: OG tube in the stomach. Mike Davis MD FACR Chest CT 06/01/17 0000 Signed Impressions: Service Date/Time: May 18:49 - CONCLUSION: 1. Dense consolidation in both posterior lower lobes right greater than left with air bronchograms. This could represent pneumonia. 2. Small bilateral pleural effusions. 3. Mild cardiomegaly. Austin Orellana MD Brain MRI 06/01/17 0000 Signed Impressions: Service Date/Time: May 19:15 - CONCLUSION: 1. Multiple new small scattered punctate areas of restricted diffusion consistent with small areas of infarction. This could be secondary to emboli. 2. No acute hemorrhage or mass effect. 3. Acute sinusitis in the ethmoidal air cells and sphenoid sinus with air fluid levels. Austin Orellana MD Abdomen/Pelvis CT 06/01/17 0000 Signed Impressions: Service Date/Time: May 18:49 - CONCLUSION: 1. Suboptimal opacification of the bowel with the distal small bowel unopacified. There is a questionable abnormal gas collection in the anterior lower pelvis. An abscess is not excluded. A repeat study is recommended after additional oral contrast is given. 2. Consolidation in both posterior lung bases with small pleural effusions. Austin Orellana MD Renal Ultrasound 05/31/17 0000 Signed Impressions: Service Date/Time: Wednesday, May 31, 2017 20:47 - CONCLUSION: 1. Suboptimal exam with visualization. 2. No evidence of hydronephrosis. 3. Cyst extending off right kidney. Austin Orellana MD Lower Extremity Ultrasound 05/29/17 0000 Signed Impressions: Service Date/Time: Monday, May 29, 2017 13:10 - CONCLUSION: 1. No evidence of deep venous thrombosis. Monty Gross MD Tumor Localization 05/26/17 0000 Signed Impressions: Service Date/Time: Friday, May 26, 2017 13:36 - CONCLUSION: No abnormal uptake identified to suggest infection. Nikita Damon MD Liver Ultrasound 05/21/17 0000 Signed Impressions: Service Date/Time: Sunday, May 21, 2017 10:32 - CONCLUSION: 1. Hepatic steatosis. 2. Gallstones 3. Limited evaluation of the right kidney. Santana Lamar MD Head CT [id number] Signed Impressions: Service Date/Time: Saturday, May 20, 2017 19:55 - CONCLUSION: 1. No acute findings. Retention cyst right maxillary sinus. Jakob Scruggs MD Physical Exam HEENT: Normocephalic; atraumatic; no jaundice. NECK: Neck is supple. CHEST: Intubated. Coarse breath sounds throughout CARDIAC: Tachycardic ABDOMEN: Soft, obese, nondistended, nontender; bowel sounds are present. EXTREMITIES: No clubbing, cyanosis, or edema. SKIN: No rash; no jaundice. 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 Diverticular abscess. CT scan without IV contrast (06/01/17)---> Suboptimal opacification of the bowel with the distal small bowel unopacified. There is a questionable abnormal gas collection in the anterior lower pelvis. An abscess is not excluded. A repeat study is recommended after additional oral contrast is given. Consolidation in both posterior lung bases with small pleural effusions. S/P GS evaluation, recommends CT guided drainage/drain placement of intra-abdominal abscess. IR re-CT scan without evidence of abdominal abscess. WBC improving, 8.1 (06/04) - Elevated LFTs. Shocked liver. On admission, LFTs of T. Bili 0.4, AST 35, ALT 58, ALk Phosph 51. Last labs reported (06/03) T. Bili 0.4, AST 239, ALT 130, ALk Phosph 118. Likely secondary to infection, medication. - Sepsis/Bacteremia (Gr. B Beta Strep)/Discitis. STEVEN negative. - Resp. Failure, HCAP, Aspiration PNA, CHE. - Encephalopathy. MRI of the brain, which revealed multiple new small scattered punctate areas of restricted diffusion consistent with small areas of infarction, this could be secondary to emboli. Cardiology was consulted and she had a STEVEN earlier today, which was negative for vegetations. - Anemia. 9.1/28.3. - JAMES. Cr 1.14 - DM, Hyperlipidemia per attending. PLAN: - NPO - Antibiotics per ID - Monitor LFTs - GS following - ID following - CCM following - Further recommendations to follow Patient seen and examined by Dr. Servin and myself and this note is written on his behalf (Arabella Balderrama) Physician Comments Seen and examined, plan as above. Continue current treatment plan and monitor LFT while on antibiotics for sepsis. Further recommendations to follow. (Myra Servin MD) Arabella Balderrama Jun 04, 2017 09:12 Myra Servin MD Jun 04, 2017 12:13
[2017-06-04 09:27] LABS: MAGNESIUM 1.5 MG/DL (1.5-2.5)
[2017-06-04] MEDS ORDERED: fentaNYL 2,500 MCG/NS 250 ML IV PRN (10:00)
--- NOTE | 2017-06-04 11:29 | HHI.PR ---
Subjective Subjective Notes no change per RN and Objective Vitals/I&O Vital Signs Date Time Temp Pulse Resp B/P (MAP) Pulse Ox O2 Delivery O2 Flow Rate FiO2 06/04/17 10:00 82 06/04/17 08:51 97 40 06/04/17 04:00 97.9 27 140/62 (88) 06/03/17 20:00 Mechanical Ventilator 05/31/17 20:29 30.00 Labs Laboratory Tests Test 06/03/17 13:00 06/04/17 05:30 06/04/17 08:00 Stool C. difficile Toxin (PCR) NEGATIVE Stl C. difficile Toxin Epiderm 027 PRESUMPTIVE NEGATIVE White Blood Count 8.1 Red Blood Count 3.10 Hemoglobin 9.1 Hematocrit 28.3 Mean Corpuscular Volume 91.3 Mean Corpuscular Hemoglobin 29.5 Mean Corpuscular Hemoglobin Concent 32.3 Red Cell Distribution Width 16.5 Platelet Count 147 Mean Platelet Volume 10.4 Neutrophils (%) (Auto) 81.3 Lymphocytes (%) (Auto) 9.4 Monocytes (%) (Auto) 8.3 Eosinophils (%) (Auto) 0.0 Basophils (%) (Auto) 1.0 Neutrophils # (Auto) 6.6 Lymphocytes # (Auto) 0.8 Monocytes # (Auto) 0.7 Eosinophils # (Auto) 0.0 Basophils # (Auto) 0.1 CBC Comment AUTO DIFF Blood Urea Nitrogen 21 Creatinine 1.14 Random Glucose 209 Total Protein 5.8 Calcium Level 7.1 Sodium Level 140 Potassium Level 2.8 Chloride Level 107 Carbon Dioxide Level 18.6 Anion Gap 14 Estimat Glomerular Filtration Rate 48 Protein Corrected Calcium 7.8 Phosphorus Level 1.5 Magnesium Level 1.5 Date/Time Source Procedure Growth Status 06/01/17 12:08 Blood Peripheral Blood Fungal Culture Pending Received 06/01/17 12:08 Blood Peripheral Blood Fungal Culture Pending Received 06/01/17 14:35 Cerebral Spinal Fluid Lumbar Puncture Fungal Smear - Final NO FUNGAL ELEMENTS SEEN. Resulted 06/01/17 14:35 Cerebral Spinal Fluid Lumbar Puncture Fungal Culture Pending Resulted 06/01/17 03:50 Sputum Endotracheal Gram Stain - Final Complete 06/01/17 03:50 Sputum Endotracheal Sputum Culture - Final MODERATE GROWTH NORMAL RESPIRATORY BRAYAN Complete 05/30/17 13:30 Urine Catheterized Urine Urine Culture - Final NO GROWTH IN 48 HOURS. Complete Radiology Last [address] 06/02/17 0000 Signed Impressions: Service Date/Time: Friday, June 02, 2017 17:29 - CONCLUSION: No evidence of intra-abdominal abscess collection. Nikita Damon MD Chest X-Ray 06/02/17 0000 Signed Impressions: Service Date/Time: Friday, June 02, 2017 15:14 - CONCLUSION: 1. Cardiomegaly. 2. Perihilar infiltrates consistent with mild to moderate pulmonary vascular congestion versus pneumonia. 3. Small right pleural effusion. 4. Multiple tubes and lines are stable. Nikita Damon MD Abdomen X-Ray 06/02/17 0000 Signed Impressions: Service Date/Time: Friday, June 02, 2017 15:20 - CONCLUSION: OG tube in the stomach. Mike Davis MD FACR Lumbar Spine MRI 06/01/17 0000 Signed Impressions: Service Date/Time: May 19:15 - CONCLUSION: 1. Atypical signal changes remain in the L3-4 disc and adjacent endplates The findings remain nonspecific. There is a moderate size posterior central epidural mass with mass effect on the anterior thecal sac. There is moderate central canal stenosis. The differential diagnosis includes disc protrusion versus small epidural abscess. A contrast enhanced lumbar spine study may be helpful for further evaluation. 2. Mild disc bulges at L2-3 and L4-5 levels with mild flattening the anterior thecal sac. Austin Orellana MD Chest CT 06/01/17 0000 Signed Impressions: Service Date/Time: May 18:49 - CONCLUSION: 1. Dense consolidation in both posterior lower lobes right greater than left with air bronchograms. This could represent pneumonia. 2. Small bilateral pleural effusions. 3. Mild cardiomegaly. Austin Orellana MD Brain MRI 06/01/17 0000 Signed Impressions: Service Date/Time: May 19:15 - CONCLUSION: 1. Multiple new small scattered punctate areas of restricted diffusion consistent with small areas of infarction. This could be secondary to emboli. 2. No acute hemorrhage or mass effect. 3. Acute sinusitis in the ethmoidal air cells and sphenoid sinus with air fluid levels. Austin Orellana MD Abdomen/Pelvis CT 06/01/17 0000 Signed Impressions: Service Date/Time: May 18:49 - CONCLUSION: 1. Suboptimal opacification of the bowel with the distal small bowel unopacified. There is a questionable abnormal gas collection in the anterior lower pelvis. An abscess is not excluded. A repeat study is recommended after additional oral contrast is given. 2. Consolidation in both posterior lung bases with small pleural effusions. Austin Orellana MD Narrative Exam abdomen distended and soft, few BS A/P Problem List: (1) Septic embolism ICD Codes: I26.90 - Septic pulmonary embolism without acute cor pulmonale (2) Diabetes ICD Codes: E11.9 - Type 2 diabetes mellitus without complications Status: Acute (3) Altered mental status ICD Codes: R41.82 - Altered mental status, unspecified Status: Acute (4) Septic shock ICD Codes: A41.9 - Sepsis, unspecified organism; R65.21 - Severe sepsis with septic shock (5) Acute renal failure ICD Codes: N17.9 - Acute kidney failure, unspecified Status: Acute (6) SIRS (systemic inflammatory response syndrome) ICD Codes: R65.10 - Systemic inflammatory response syndrome (SIRS) of non- infectious origin without acute organ dysfunction Status: Acute (7) Bacteremia due to group B Streptococcus ICD Codes: R78.81 - Bacteremia (8) Morbid obesity ICD Codes: E66.01 - Morbid (severe) obesity due to excess calories (9) Cerebral septic emboli ICD Codes: I76 - Septic arterial embolism; I66.9 - Occlusion and stenosis of unspecified cerebral artery Assessment and Plan sepsis no obvious intrabd source no surgical intervention at this time Problem Qualifiers (1) Diabetes: (2) Altered mental status: Qualified Codes: R41.82 - Altered mental status, unspecified (3) Acute renal failure: Qualified Codes: N17.9 - Acute kidney failure, unspecified Efraín Azar MD Jun 04, 2017 11:29
[2017-06-04] MEDS: SODIUM PHOSPHATE INJ 30 MMOL in SODIUM CHLOR 0.9% 250 ML INJ 240 ML IV PRN (13:06)
[2017-06-04 13:42] LABS: BANDS 26 % (0-6); NEUTROPHIL # MANUAL DIFF 7.6 TH/MM3 (1.8-7.7); PLATELET ESTIMATE SMEAR NORMAL (NORMAL); PLATELET MORPHOLOGY NORMAL (NORMAL); POLYS (SEG NEUTROPHILS) 68 % (16-70); SCAN/DIFF FINAL DIFF MANUAL; WBC DIFF SAMPLE 100
--- NOTE | 2017-06-04 14:05 | HHI.NPPN ---
Subjective History of Present Illness 66 year old female with Sepsis, possible Meningitis/Discitis, ARF Additional Remarks Patient remain intubated and sedated, clinically same. Review of Systems General General Remarks Intubated and sedated. Objective Data Data 06/04/17 06/05/17 19:00 07:00 Intake Total 11.8 ml Balance 11.8 ml IV Total 11.8 ml Vital Signs Date Time Temp Pulse Resp B/P (MAP) Pulse Ox O2 Delivery O2 Flow Rate FiO2 06/04/17 12:00 98.0 85 25 158/68 (98) 98 06/04/17 12:00 85 06/04/17 11:36 99 40 06/04/17 10:00 82 06/04/17 08:51 97 40 06/04/17 08:00 98.1 84 23 137/63 (87) 95 06/04/17 08:00 84 06/04/17 08:00 50 06/04/17 06:00 83 06/04/17 04:39 97 50 06/04/17 04:00 97.9 82 27 140/62 (88) 95 06/04/17 04:00 82 06/04/17 04:00 50 06/04/17 02:00 81 06/04/17 00:00 98.9 82 27 120/58 (78) 98 06/04/17 00:00 82 06/04/17 00:00 50 06/03/17 23:58 100 50 06/03/17 22:00 80 06/03/17 20:47 100 50 06/03/17 20:00 97.7 80 25 112/53 (72) 98 06/03/17 20:00 80 06/03/17 20:00 50 06/03/17 20:00 95 Mechanical Ventilator 50 06/03/17 18:00 79 06/03/17 16:00 95 Mechanical Ventilator 90 -: 06/04/17 0530 06/04/17 0530 Physical Exam General Appearance: Well Developed, Obese Neck Neck Exam: Neck Supple Pulmonary Resp Exam: Decreased Bases Cardiology CV Exam: Tachycardia Gastrointestinal/Abdomen GI Exam: Soft, Non-Tender, Bowel Sounds Present Extremeties Extremities Exam: Moderate Edema Assessment/Plan Problem List: (1) Acute renal failure ICD Codes: N17.9 - Acute kidney failure, unspecified Status: Acute Plan: Patient has septic shock and low blood pressure which can cause acute tubular necrosis I reviewed kidney ultrasound cyst but no hydro Urine lytes consistent with ATN intubated CPK high Rhabdo possible seizure? Creatinine improving. K is low, replaced. Lasix given, MRI of lumber spine noted. Dr. Cabrera will follow in AM. (2) Septic shock ICD Codes: A41.9 - Sepsis, unspecified organism; R65.21 - Severe sepsis with septic shock Plan: Patient is on broad-spectrum antibiotics. Infectious disease is following the patient she's getting Zyvox, Ceftolozane, metronidazole, Micafungin. (3) Bacteremia due to group B Streptococcus ICD Codes: R78.81 - Bacteremia Plan: She does have streptococcal infection (4) SIRS (systemic inflammatory response syndrome) ICD Codes: R65.10 - Systemic inflammatory response syndrome (SIRS) of non- infectious origin without acute organ dysfunction Status: Acute Plan: Critical care is following (5) Acute hypercapnic respiratory failure ICD Codes: J96.02 - Acute respiratory failure with hypercapnia Plan: On O2 (6) Diabetes ICD Codes: E11.9 - Type 2 diabetes mellitus without complications Status: Acute Plan: Continue to monitor blood glucose Problem Qualifiers (1) Acute renal failure: Qualified Codes: N17.9 - Acute kidney failure, unspecified (2) Diabetes: Moi Jackson MD Jun 04, 2017 14:05
--- NOTE | 2017-06-04 14:31 | HHI.PR ---
Review/Management Diagnosis 1. Encephalopathy. Possible etiological causes are seizures/ infectious/ metabolic 2. Respiratory failure. 3. Bacteremia, group B strep. 4. JAMES. 5. Diabetes mellitus. Plan - Phenytoin 100 milligrams q. 8. - Keppra 750mg Q12h - Aspirin 81mg - Seizure precautions. - Obtain Dilantin level next a.m. - Neuro checks q. one hourly. - Hold narcotic medications. - Continue supportive medical therapy. - GI prophylaxis. - DVT prophylaxis, subcutaneous heparin. Diagnosis/Plan: Subjective Subjective Comments No change in neurologic status, encephalopathic MRI brain revealed multiple areas of restricted diffusion cortical and sub cortical in both hemispheres A follow up EEG on 06/01/2017 revealed an evidence of an encephalopathic parttern, with epileptic discharges, no ictal activity STEVEN is negative but for PFO Dilantin level is therapeutic [11.0] No family at bed side Active Medications Current Medications Medications (Trade) Dose Ordered Sig/Erasmo Route Start Time Stop Time Status Last Admin (Heparin Inj) 5,000 units Q8H SQ 05/20/17 22:00 Future hold 06/04/17 05:18 Miscellaneous Information 1 Q361D XX 05/20/17 22:30 (Chlorhexidine 2% Cloth) Taper DAILY@04 TOP 05/21/17 04:00 05/17/18 03:59 06/04/17 03:17 (Chlorhexidine 2% Cloth) 3 pack UNSCH PRN TOP 05/20/17 22:30 (Tylenol) 650 mg Q6H PRN PO 05/21/17 01:30 (Duoneb Neb) 1 ampule Q2HR NEB PRN NEB 05/21/17 05:45 06/01/17 20:50 (Glucagon Inj) 1 mg UNSCH PRN OTHER 05/22/17 07:30 (NS Flush) 2 ml UNSCH PRN IV FLUSH 05/24/17 12:15 05/31/17 10:37 (NS Flush) 2 ml BID IV FLUSH 05/24/17 21:00 06/04/17 09:05 (Narcan Inj) 0.4 mg UNSCH PRN IV PUSH 05/24/17 12:15 (May-Colace) 1 tab BID PO 05/24/17 21:00 06/03/17 10:00 (Milk Of Magnesia Liq) 30 ml Q12H PRN PO 05/24/17 12:15 05/24/17 13:45 (Senokot) 17.2 mg Q12H PRN PO 05/24/17 12:15 (Dulcolax Supp) 10 mg DAILY PRN RECTAL 05/24/17 12:15 (Lactulose Liq) 30 ml DAILY PRN PO 05/24/17 12:15 Ceftriaxone Sodium 2000 mg/ Sodium Chloride 100 ml @ 200 mls/hr Q12H IV 05/25/17 17:00 06/04/17 05:17 (Dilantin Inj) 100 mg Q8HR IV 05/26/17 22:00 06/04/17 05:18 (Mycostatin Powder) 1 applic Q12HR TOPICAL 05/30/17 10:00 06/04/17 09:04 (Tylenol Supp) 650 mg Q6H PRN RECTAL 05/30/17 13:15 05/30/17 14:06 (Pepcid Inj) 10 mg Q12HR IV PUSH 05/31/17 21:00 06/04/17 09:03 (Ofirmev 1000 Mg/ 100 ml Inj) 1,000 mg Q6H PRN IV 05/31/17 16:30 05/31/17 16:51 Insulin Human Regular 100 units/ Sodium Chloride 100 ml @ 3 mls/hr TITRATE PRN IV 06/01/17 11:45 06/04/17 13:08 (D50w (Vial) Inj) 50 ml UNSCH PRN IV PUSH 06/01/17 11:45 Levetriacetam 750 mg/Sodium Chloride 107.5 ml @ 430 mls/hr Q12HR IV 06/01/17 21:00 06/04/17 09:05 Metronidazole 100 ml @ 100 mls/hr Q8H IV 06/01/17 22:00 06/04/17 05:16 (SoluCORTEF INJ) 50 mg Taper Q12HR IV PUSH 06/03/17 14:00 06/07/17 13:59 06/04/17 05:18 (Mag-Ox) 800 mg UNSCH PRN PO 06/03/17 11:00 Magnesium Sulfate 4 gm/Sodium Chloride 100 ml @ 50 mls/hr UNSCH PRN IV 06/03/17 11:00 Magnesium Sulfate 2 gm/Sodium Chloride 100 ml @ 50 mls/hr UNSCH PRN IV 06/03/17 11:00 06/03/17 13:22 Potassium Chloride 100 ml @ 50 mls/hr Q2H PRN IV 06/03/17 11:00 Potassium Chloride 100 ml @ 50 mls/hr Q2H PRN IV 06/03/17 11:00 Potassium Chloride 100 ml @ 50 mls/hr Q2H PRN IV 06/03/17 11:00 06/04/17 06:36 Potassium Chloride 100 ml @ 25 mls/hr UNSCH PRN IV 06/03/17 11:00 (K-Phos) 2,000 mg Q4H PRN PO 06/03/17 11:00 (K-Phos) 2,000 mg UNSCH PRN PO/TUBE 06/03/17 11:00 Potassium Phosphate 30 mmol/ Sodium Chloride 260 ml @ 42 mls/hr UNSCH PRN IV 06/03/17 11:00 06/03/17 13:23 Sodium Phosphate 30 mmol/Sodium Chloride 250 ml @ 42 mls/hr UNSCH PRN IV 06/03/17 11:00 06/04/17 13:06 (Aspirin) 325 mg DAILY PO 06/03/17 11:00 06/04/17 09:04 (Symmetrel Liq) 200 mg BID@07,12 PO 06/03/17 12:00 06/04/17 11:22 (Levemir Inj) 50 units Q12HR SQ 06/03/17 11:00 06/04/17 09:03 Midazolam HCl 100 ml @ 2 mls/hr TITRATE PRN IV 06/03/17 20:15 06/04/17 05:22 Fentanyl Citrate 250 ml @ 5 mls/hr TITRATE PRN IV 06/04/17 10:00 06/04/17 11:22 Allergies Allergies Coded Allergies No Known Allergies ([id number]/21/17) Review of Systems All other ROS: ROS reviewed as documented in chart Exam I&O / VS 06/04/17 06/04/17 06/05/17 15:00 23:00 07:00 Intake Total 11.8 ml Balance 11.8 ml IV Total 11.8 ml Vital Signs Date Time Temp Pulse Resp B/P (MAP) Pulse Ox O2 Delivery O2 Flow Rate FiO2 06/04/17 12:00 98.0 85 25 158/68 (98) 98 06/04/17 12:00 85 06/04/17 11:36 99 40 06/04/17 10:00 82 06/04/17 08:51 97 40 06/04/17 08:00 98.1 84 23 137/63 (87) 95 06/04/17 08:00 84 06/04/17 08:00 50 06/04/17 06:00 83 06/04/17 04:39 97 50 06/04/17 04:00 97.9 82 27 140/62 (88) 95 06/04/17 04:00 82 06/04/17 04:00 50 06/04/17 02:00 81 06/04/17 00:00 98.9 82 27 120/58 (78) 98 06/04/17 00:00 82 06/04/17 00:00 50 06/03/17 23:58 100 50 06/03/17 22:00 80 06/03/17 20:47 100 50 06/03/17 20:00 97.7 80 25 112/53 (72) 98 06/03/17 20:00 80 06/03/17 20:00 50 06/03/17 20:00 95 Mechanical Ventilator 50 06/03/17 18:00 79 06/03/17 16:00 95 Mechanical Ventilator 90 Exam Comments GENERAL: Morbidly obese, lethargic. HEENT: Atraumatic, normocephalic. NECK: Supple. No signs of meningeal irritation. CARDIOVASCULAR: Regular rate and rhythm. RESPIRATORY: Clear to auscultation. No wheezes. GASTROINTESTINAL: Soft, nontender. MUSCULOSKELETAL: No cyanosis, edema or clubbing. NEUROLOGIC EXAMINATION: Intubated, Pupils 3 mm bilaterally equally reacting to light. No facial asymmetry. Reflexes 1+ bilateral and symmetrical. B/l Babinski reflex. Objective Radiology Results Last 72 hours Impressions Lumbar Spine MRI 06/03/17 0000 Signed Impressions: Service Date/Time: Saturday, June 03, 2017 15:42 - CONCLUSION: The MRI findings after contrast administration are not convincing for presence of active infection within the L3/L4 disc, adjacent vertebral bodies or epidural space/adjacent soft tissues. Santana Eric MD Pelvis CT 06/02/17 0000 Signed Impressions: Service Date/Time: Friday, June 02, 2017 17:29 - CONCLUSION: No evidence of intra-abdominal abscess collection. Nikita Damon MD Chest X-Ray 06/02/17 0000 Signed Impressions: Service Date/Time: Friday, June 02, 2017 15:14 - CONCLUSION: 1. Cardiomegaly. 2. Perihilar infiltrates consistent with mild to moderate pulmonary vascular congestion versus pneumonia. 3. Small right pleural effusion. 4. Multiple tubes and lines are stable. Nikita Damon MD Abdomen X-Ray 06/02/17 0000 Signed Impressions: Service Date/Time: Friday, June 02, 2017 15:20 - CONCLUSION: OG tube in the stomach. Mike Davis MD FACR Micro and Labs Laboratory Tests Test 06/04/17 05:30 06/04/17 08:00 White Blood Count 8.1 Red Blood Count 3.10 Hemoglobin 9.1 Hematocrit 28.3 Mean Corpuscular Volume 91.3 Mean Corpuscular Hemoglobin 29.5 Mean Corpuscular Hemoglobin Concent 32.3 Red Cell Distribution Width 16.5 Platelet Count 147 Mean Platelet Volume 10.4 Neutrophils (%) (Auto) 81.3 Lymphocytes (%) (Auto) 9.4 Monocytes (%) (Auto) 8.3 Eosinophils (%) (Auto) 0.0 Basophils (%) (Auto) 1.0 Neutrophils # (Auto) 6.6 Lymphocytes # (Auto) 0.8 Monocytes # (Auto) 0.7 Eosinophils # (Auto) 0.0 Basophils # (Auto) 0.1 CBC Comment AUTO DIFF Differential Total Cells Counted 100 Neutrophils % (Manual) 68 Band Neutrophils % 26 Lymphocytes % 3 Monocytes % 3 Neutrophils # (Manual) 7.6 Differential Comment FINAL DIFF MANUAL Platelet Estimate NORMAL Platelet Morphology Comment NORMAL Red Cell Morphology Comment NORMAL Blood Urea Nitrogen 21 Creatinine 1.14 Random Glucose 209 Total Protein 5.8 Calcium Level 7.1 Sodium Level 140 Potassium Level 2.8 Chloride Level 107 Carbon Dioxide Level 18.6 Anion Gap 14 Estimat Glomerular Filtration Rate 48 Protein Corrected Calcium 7.8 Phosphorus Level 1.5 Magnesium Level 1.5 Date/Time Source Procedure Growth Status 06/01/17 12:08 Blood Peripheral Blood Fungal Culture Pending Received 06/01/17 12:08 Blood Peripheral Blood Fungal Culture Pending Received 06/01/17 14:35 Cerebral Spinal Fluid Lumbar Puncture Fungal Smear - Final NO FUNGAL ELEMENTS SEEN. Resulted 06/01/17 14:35 Cerebral Spinal Fluid Lumbar Puncture Fungal Culture Pending Resulted 06/01/17 03:50 Sputum Endotracheal Gram Stain - Final Complete 06/01/17 03:50 Sputum Endotracheal Sputum Culture - Final MODERATE GROWTH NORMAL RESPIRATORY BRAYAN Complete 05/30/17 13:30 Urine Catheterized Urine Urine Culture - Final NO GROWTH IN 48 HOURS. Complete Juan Pablo Salas MD Jun 04, 2017 14:31
[2017-06-04 15:02] LABS: CSF CRYPTOCOCCUS AG CONF ND (NOT DETECTD)
[2017-06-04] MEDS: MAGNESIUM SULFATE INJ 2 GM in SODIUM CHLORIDE 0.9% INJ 96 ML IV PRN (15:34)
--- NOTE | 2017-06-04 17:54 | HHI.IDPN ---
Subjective Subjective Remarks ID X cover for dw Dr Campbell and RN overall improved, but neurologically not waking up UOP improved afebrile off pressors MRI spine with contrasrt is negative for epidural abscess tolerating FiO2 40% Antibiotics CFTX flagyl Lines Line sites with no e.o infection Past Medical History Diabetes Dyslipidemia Hypertension Chronic back pain sees a chiropracter. Chronic lower extremity swelling. Never had an ECHO before per pt and spouse. ? Sleep apnea. Allergies: Coded Allergies: No Known Allergies (Unverified , 05/20/17) Objective . Vital Signs Date Time Temp Pulse Resp B/P (MAP) Pulse Ox O2 Delivery O2 Flow Rate FiO2 06/04/17 16:27 99 40 06/04/17 16:00 98.0 86 24 154/72 (99) 99 06/04/17 16:00 86 06/04/17 14:43 100 40 06/04/17 14:00 87 06/04/17 12:00 98.0 85 25 158/68 (98) 98 06/04/17 12:00 85 06/04/17 11:36 99 40 06/04/17 10:00 82 06/04/17 08:51 97 40 06/04/17 08:00 98.1 84 23 137/63 (87) 95 06/04/17 08:00 84 06/04/17 08:00 50 06/04/17 06:00 83 06/04/17 04:39 97 50 06/04/17 04:00 97.9 82 27 140/62 (88) 95 06/04/17 04:00 82 06/04/17 04:00 50 06/04/17 02:00 81 06/04/17 00:00 98.9 82 27 120/58 (78) 98 06/04/17 00:00 82 06/04/17 00:00 50 06/03/17 23:58 100 50 06/03/17 22:00 80 06/03/17 20:47 100 50 06/03/17 20:00 97.7 80 25 112/53 (72) 98 06/03/17 20:00 80 06/03/17 20:00 50 06/03/17 20:00 95 Mechanical Ventilator 50 06/03/17 18:00 79 06/04/17 06/04/17 06/05/17 15:00 23:00 07:00 Intake Total 11.8 ml Balance 11.8 ml IV Total 11.8 ml . Laboratory Tests Test 06/03/17 04:30 06/04/17 05:30 White Blood Count 10.2 TH/MM3 8.1 TH/MM3 Red Blood Count 3.09 MIL/MM3 3.10 MIL/MM3 Hemoglobin 9.1 GM/DL 9.1 GM/DL Hematocrit 28.3 % 28.3 % Mean Corpuscular Volume 91.8 FL 91.3 FL Mean Corpuscular Hemoglobin 29.6 PG 29.5 PG Mean Corpuscular Hemoglobin Concent 32.3 % 32.3 % Red Cell Distribution Width 16.9 % 16.5 % Platelet Count 133 TH/MM3 147 TH/MM3 Mean Platelet Volume 11.1 FL 10.4 FL Neutrophils (%) (Auto) 84.2 % 81.3 % Lymphocytes (%) (Auto) 7.8 % 9.4 % Monocytes (%) (Auto) 6.8 % 8.3 % Eosinophils (%) (Auto) 0.1 % 0.0 % Basophils (%) (Auto) 1.1 % 1.0 % Neutrophils # (Auto) 8.6 TH/MM3 6.6 TH/MM3 Lymphocytes # (Auto) 0.8 TH/MM3 0.8 TH/MM3 Monocytes # (Auto) 0.7 TH/MM3 0.7 TH/MM3 Eosinophils # (Auto) 0.0 TH/MM3 0.0 TH/MM3 Basophils # (Auto) 0.1 TH/MM3 0.1 TH/MM3 CBC Comment AUTO DIFF AUTO DIFF Differential Total Cells Counted 100 100 Neutrophils % (Manual) 67 % 68 % Band Neutrophils % 21 % 26 % Lymphocytes % 2 % 3 % Monocytes % 4 % 3 % Neutrophils # (Manual) 9.6 TH/MM3 7.6 TH/MM3 Metamyelocytes 5 % Myelocytes 1 % Differential Comment FINAL DIFF MANUAL FINAL DIFF MANUAL Toxic Granulation Platelet Estimate LOW NORMAL Platelet Morphology Comment ENLARGED NORMAL Red Cell Morphology Comment NORMAL Laboratory Tests Test 06/03/17 04:30 06/04/17 05:30 06/04/17 08:00 Blood Urea Nitrogen 20 MG/DL 21 MG/DL Creatinine 1.25 MG/DL 1.14 MG/DL Random Glucose 233 MG/DL 209 MG/DL Total Protein 5.7 GM/DL 5.8 GM/DL Albumin 1.3 GM/DL Calcium Level 6.7 MG/DL 7.1 MG/DL Phosphorus Level 0.8 MG/DL 1.5 MG/DL Magnesium Level 1.2 MG/DL 1.5 MG/DL Alkaline Phosphatase 118 U/L Aspartate Amino Transf (AST/SGOT) 239 U/L Alanine Aminotransferase (ALT/SGPT) 130 U/L Total Bilirubin 0.4 MG/DL Sodium Level 138 MEQ/L 140 MEQ/L Potassium Level 3.0 MEQ/L 2.8 MEQ/L Chloride Level 105 MEQ/L 107 MEQ/L Carbon Dioxide Level 18.0 MEQ/L 18.6 MEQ/L Anion Gap 15 MEQ/L 14 MEQ/L Estimat Glomerular Filtration Rate 43 ML/MIN 48 ML/MIN Protein Corrected Calcium 7.4 MG/DL 7.8 MG/DL Total Creatine Kinase 906 U/L Creatine Kinase MB 3.2 NG/ML Creatine Kinase MB % 0.4 % Triglycerides Level 505 MG/DL Cholesterol Level 84 MG/DL LDL Cholesterol MG/DL HDL Cholesterol 8.1 MG/DL Cholesterol/HDL Ratio 10.37 RATIO Imaging Last Impressions Lumbar Spine MRI 06/03/17 Signed Impressions: Service Date/Time: Saturday, June 03, 2017 15:42 - CONCLUSION: The MRI findings after contrast administration are not convincing for presence of active infection within the L3/L4 disc, adjacent vertebral bodies or epidural space/adjacent soft tissues. Santana Eric MD Pelvis CT 06/02/17 0000 Signed Impressions: Service Date/Time: Friday, June 02, 2017 17:29 - CONCLUSION: No evidence of intra-abdominal abscess collection. Nikita Damon MD Chest X-Ray 06/02/17 0000 Signed Impressions: Service Date/Time: Friday, June 02, 2017 15:14 - CONCLUSION: 1. Cardiomegaly. 2. Perihilar infiltrates consistent with mild to moderate pulmonary vascular congestion versus pneumonia. 3. Small right pleural effusion. 4. Multiple tubes and lines are stable. Nikita Damon MD Abdomen X-Ray 06/02/17 0000 Signed Impressions: Service Date/Time: Friday, June 02, 2017 15:20 - CONCLUSION: OG tube in the stomach. Mike Davis MD FACR Chest CT 06/01/17 0000 Signed Impressions: Service Date/Time: May 18:49 - CONCLUSION: 1. Dense consolidation in both posterior lower lobes right greater than left with air bronchograms. This could represent pneumonia. 2. Small bilateral pleural effusions. 3. Mild cardiomegaly. Austin Orellana MD Brain MRI 06/01/17 0000 Signed Impressions: Service Date/Time: May 19:15 - CONCLUSION: 1. Multiple new small scattered punctate areas of restricted diffusion consistent with small areas of infarction. This could be secondary to emboli. 2. No acute hemorrhage or mass effect. 3. Acute sinusitis in the ethmoidal air cells and sphenoid sinus with air fluid levels. Austin Orellana MD Abdomen/Pelvis CT 06/01/17 0000 Signed Impressions: Service Date/Time: May 18:49 - CONCLUSION: 1. Suboptimal opacification of the bowel with the distal small bowel unopacified. There is a questionable abnormal gas collection in the anterior lower pelvis. An abscess is not excluded. A repeat study is recommended after additional oral contrast is given. 2. Consolidation in both posterior lung bases with small pleural effusions. Austin Orellana MD Renal Ultrasound 05/31/17 0000 Signed Impressions: Service Date/Time: Wednesday, May 31, 2017 20:47 - CONCLUSION: 1. Suboptimal exam with visualization. 2. No evidence of hydronephrosis. 3. Cyst extending off right kidney. Austin Orellana MD Lower Extremity Ultrasound 05/29/17 0000 Signed Impressions: Service Date/Time: Monday, May 29, 2017 13:10 - CONCLUSION: 1. No evidence of deep venous thrombosis. Monty Gross MD Tumor Localization 05/26/17 0000 Signed Impressions: Service Date/Time: Friday, May 26, 2017 13:36 - CONCLUSION: No abnormal uptake identified to suggest infection. Nikita Damon MD Liver Ultrasound 05/21/17 0000 Signed Impressions: Service Date/Time: Sunday, May 21, 2017 10:32 - CONCLUSION: 1. Hepatic steatosis. 2. Gallstones 3. Limited evaluation of the right kidney. Santana Lamar MD Head CT [id number] Signed Impressions: Service Date/Time: Saturday, May 20, 2017 19:55 - CONCLUSION: 1. No acute findings. Retention cyst right maxillary sinus. Jakob Scruggs MD Physical Exam GENERAL: Obese patient. sedated int'd on mech vent SKIN: No rashes. Ecchymosis noted. No Janeway lesion no plinter hmrgs HEAD: Atraumatic. Normocephalic. EYES: Pupils equal round and reactive. Extraocular motions intact. No scleral icterus. No injection or drainage. ENT: Nose without bleeding, purulent drainage or septal hematoma. Throat without erythema, tonsillar hypertrophy or exudate. Uvula midline. Airway patent. NECK: Large neck, intubated. Supple CARDIOVASCULAR: Regular rate and rhythm without murmurs. well perused perifery with good refill RESPIRATORY: Breath sounds equal bilaterally.Clear to ayusculttion anteriorly GASTROINTESTINAL: Abdomen soft, non-tender, nondistended. Obese. No hepatosplenomegaly Incontinent of dark liquid stool chiu in place with quality consultant appearting urine in chiu bag (yulissa) MUSCULOSKELETAL: Extremities without clubbing, cyanosis. Improved, soft edema, generalysed anasarca, 3- 4+ NEUROLOGICAL: Sedated, on versed, moves extremities on painful stimuli both upper and lower extremities. Psych unable to assess IV line sites with no e/o infection. Assessment & Plan Remarks Septic Shock with MODS HCAP/plus aspiration pneumonia. nl resp kleber on sputum clx Meningitis/discitis(likely partially treated or parameningeal focus related CSF changes) New onset seizures likely secondary to [employer]SPORTATION [employer]ING [employer] infection process. Strep Grp B bacteremia sources: ? GI, skin as source. STEVEN neg, but done 2 weeks after abx were started ? embolic strokes Bilateral R> L LE cellulitis: improved. Acute renal failure UO improving. GFR > 40 Acute resp failure: pulm edema,aspiration PNA, sleep apnea. MRI of T spine negative Abnormal LFTs: sepsis related, ? rhabdo elevated CK. HTN DM2 uncontrolled. Obesity BMI 49.7 kg/m2 Recs: Continue Ceftriaxone IV q12 for possible meningitis/epidural abscess. Continue Flagyl IV for now ( aspiration coverage) Follow clinically. d/w RN, . Gloria Vieira MD Jun 04, 2017 17:54
[2017-06-04] MEDS: SODIUM CHLORIDE 0.9% FLUSH 10 ML FLUSH IV FLUSH PRN (20:38)
--- NOTE | 2017-06-04 21:04 | RADRPT ---
EXAM DATE/TIME: 06/04/2017 20:41 [facility] COMPARISON: CHEST SINGLE AP, June 02, 2017, 15:14. INDICATIONS : Short of breath MEDICAL HISTORY : Diabetes mellitus type 2. Hypertension. Renal failure, acute. SURGICAL HISTORY : section. ENCOUNTER: Subsequent ACUITY: 2 weeks PAIN SCORE: Non-responsive. LOCATION: chest FINDINGS: Cardiomegaly, lower lobe consolidation and small bilateral effusions. Left jugular line tip overlies the SVC. Endotracheal tube tip at the level of the clavicles. CONCLUSION: Effusions and consolidation. Garrison Engle MD on June 04, 2017 at 21:01 Board Certified Radiologist. This report was verified electronically.
[2017-06-05] VITALS (19 sets, daily range): BP systolic 130–175; BP diastolic 60–74; PULSE 81–105; RESP 20–26; TEMP 98.1–100.5; O2SAT 94–99
[2017-06-05] MEDS: cefTRIAXone INJ 2,000 MG in SODIUM CHLORIDE 0.9% INJ 100 ML IV SCH ×2 (05:28→16:46)
[2017-06-05] MEDS: HEPARIN SODIUM - SQ 10,000 UNITS/ML VIAL SQ SCH ×3 (05:29→21:29)
[2017-06-05] MEDS: metroNIDAZOLE 500 MG INJ 100 ML IV SCH (05:30)
[2017-06-05] MEDS: PHENYTOIN INJ 100 MG/2 ML VIAL IV SCH ×3 (05:30→21:29)
[2017-06-05] MEDS: AMANTADINE HCL SOLN 100 MG/10 ML UDC PO SCH ×2 (05:31→11:14)
[2017-06-05 05:51] LABS: HEMATOCRIT 29.2 % (35.0-46.0); MEAN CORPUSCULAR HEMOGLOBIN 29.5 PG (27.0-34.0); MEAN CORPUSCULAR HGB CONC 32.8 % (32.0-36.0); PLATELET COUNT 181 TH/MM3 (150-450); RED BLOOD COUNT 3.25 MIL/MM3 (4.00-5.30); RED CELL DISTRIBUTION WIDTH 16.6 % (11.6-17.2); REVIEW FLAG FINAL; WHITE BLOOD COUNT 7.1 TH/MM3 (4.0-11.0)
--- NOTE | 2017-06-05 05:51 | MG ---
cc: SHERIDAN CHILD Lab No: Date: 06/04/2017 Age: 66 Sex: F Race: DATE OF [address] Anthony MEDICAL HISTORY Admitted for confusion, lethargy. Received a shot from an Urgent Care lower back pain. History of dyslipidemia, hypertension, diabetes, chronic back pain, dyspnea, morbid obesity and measles. MEDICATIONS 1. Lasix. 2. Midazolam. 3. Solu-Cortef. 4. Symmetrel. 5. Potassium chloride. 6. Heparin. 7. Metronidazole. 8. Insulin human. 9. Dilantin. 10. Ceftriaxone. 11. Aspirin. 12. Levemir. 13. Keppra. 14. Pepcid. 15. Nystatin. DESCRIPTION This is a follow-up EEG, revealed during the entire recording there is excessive interference and electrode and movement artifact. In the readable portion of the EEG there is a background slowing in the delta-theta range. Hyperventilation was not done. Photic stimulation did not elicit a driving response. Versed 5 mg was turned off 1 hour prior to start of EEG. There were no electrographic seizures or epileptiform discharges seen in the readable portion of the EEG. INTERPRETATION The EEG is excessively contaminated with muscle, movement and electrode artifact. In the readable portion of the EEG there is background slowing that may indicate an encephalopathic etiology that may be related to metabolic, medication effect or hypoxic injury. There was no ictal activity or epileptiform discharges noted. Clinical correlation is recommended. MD GALINDO Cortez/ILA /2:26 PM /6:45 AM LISA
[2017-06-05 06:16] LABS: BICARBONATE 22.1 MEQ/L (21.0-32.0); POTASSIUM 3.4 MEQ/L (3.5-5.1)
[2017-06-05 06:31] LABS: CALCIUM-PROTEIN CORRECTED 8.1 MG/DL (8.5-10.1)
[2017-06-05] MEDS: POTASSIUM CHLOR 40 MEQ PREMIX 100 ML IV PRN (06:59)
[2017-06-05] MEDS: levETIRAcetam INJ 750 MG in SODIUM CHLORIDE 0.9% INJ 100 ML IV SCH ×2 (08:41→21:27)
[2017-06-05] MEDS: FAMOTIDINE 20 MG/2 ML VIAL IV PUSH SCH ×2 (08:42→21:27)
[2017-06-05] MEDS: HYDROCORTISONE SOD SUCCINATE 100 MG VIAL IV PUSH SCH ×2 (08:43→21:28)
[2017-06-05] MEDS: DOCUSATE SODIUM 50 MG/SENNA 8.6 MG TAB PO SCH ×2 (08:43→21:28)
[2017-06-05] MEDS: SODIUM CHLORIDE 0.9% FLUSH 10 ML FLUSH IV FLUSH SCH ×2 (08:44→21:27)
[2017-06-05] MEDS: ASPIRIN 325 MG TAB PO SCH (08:44)
[2017-06-05] MEDS: INSULIN DETEMIR 100 UNITS/ML VIAL SQ SCH ×2 (08:44→21:28)
[2017-06-05] MEDS: NYSTATIN 100,000 U/GM PWD 15 GM BTL TOPICAL SCH ×2 (08:45→21:29)
--- NOTE | 2017-06-05 09:56 | HHI.GIFU ---
Subjective Remarks Sedated on vent. Does follow commands. Afebrile. (Evelin Zheng) Objective Vitals I&O Vital Signs Date Time Temp Pulse Resp B/P (MAP) Pulse Ox O2 Delivery O2 Flow Rate FiO2 06/05/17 07:28 99 40 06/05/17 06:00 91 06/05/17 05:30 95 40 06/05/17 04:00 40 06/05/17 04:00 81 06/05/17 04:00 98.1 81 20 130/60 (83) 99 06/05/17 02:00 90 06/05/17 00:08 96 40 06/05/17 00:00 85 06/05/17 00:00 40 06/05/17 00:00 98.4 85 21 144/63 (90) 95 06/04/17 22:00 87 06/04/17 20:00 93 06/04/17 20:00 40 06/04/17 20:00 98.1 93 26 160/67 (98) 96 06/04/17 18:00 86 06/04/17 16:27 99 40 06/04/17 16:00 40 06/04/17 16:00 98.0 86 24 154/72 (99) 99 06/04/17 16:00 86 06/04/17 14:43 100 40 06/04/17 14:00 87 06/04/17 12:00 98.0 85 25 158/68 (98) 98 06/04/17 12:00 85 06/04/17 12:00 40 06/04/17 11:36 99 40 06/04/17 10:00 82 I/O 06/04/17 06/04/17 06/04/17 06/05/17 06/05/17 06/05/17 07:00 15:00 23:00 07:00 15:00 23:00 Intake Total 905.5 ml 119.3 ml 790.9 ml 365 ml Output Total 400 ml 1550 ml 650 ml Balance 505.5 ml 119.3 ml -759.1 ml -285 ml IV Total 905.5 ml 119.3 ml 790.9 ml 350 ml Tube Irrigant 15 ml Output Urine Total 400 ml 1550 ml 450 ml Stool Total 200 ml # Bowel Movements 2 Laboratory Laboratory Tests Test 06/04/17 15:43 11/6/17 05:30 Phenytoin (Dilantin) Level 11.0 White Blood Count 7.1 Red Blood Count 3.25 Hemoglobin 9.6 Hematocrit 29.2 Mean Corpuscular Volume 90.0 Mean Corpuscular Hemoglobin 29.5 Mean Corpuscular Hemoglobin Concent 32.8 Red Cell Distribution Width 16.6 Platelet Count 181 Mean Platelet Volume 10.0 Blood Urea Nitrogen 20 Creatinine 0.88 Random Glucose 171 Total Protein 5.9 Calcium Level 7.4 Phosphorus Level 1.6 Sodium Level 143 Potassium Level 3.4 Chloride Level 110 Carbon Dioxide Level 22.1 Anion Gap 11 Estimat Glomerular Filtration Rate 64 Protein Corrected Calcium 8.1 Date/Time Source Procedure Growth Status 06/01/17 12:08 Blood Peripheral Blood Fungal Culture Pending Received 06/01/17 12:08 Blood Peripheral Blood Fungal Culture Pending Received 06/01/17 14:35 Cerebral Spinal Fluid Lumbar Puncture Fungal Smear - Final NO FUNGAL ELEMENTS SEEN. Resulted 06/01/17 14:35 Cerebral Spinal Fluid Lumbar Puncture Fungal Culture Pending Resulted 06/01/17 03:50 Sputum Endotracheal Gram Stain - Final Complete 06/01/17 03:50 Sputum Endotracheal Sputum Culture - Final MODERATE GROWTH NORMAL RESPIRATORY BRAYAN Complete 05/30/17 13:30 Urine Catheterized Urine Urine Culture - Final NO GROWTH IN 48 HOURS. Complete Imaging Last Impressions Chest X-Ray 06/04/17 0000 Signed Impressions: Service Date/Time: Sunday, June 04, 2017 20:41 - CONCLUSION: Effusions and consolidation. Garrison Engle MD Lumbar Spine MRI 06/03/17 0000 Signed Impressions: Service Date/Time: Saturday, June 03, 2017 15:42 - CONCLUSION: The MRI findings after contrast administration are not convincing for presence of active infection within the L3/L4 disc, adjacent vertebral bodies or epidural space/adjacent soft tissues. Santana Eric MD Pelvis CT 06/02/17 0000 Signed Impressions: Service Date/Time: Friday, June 02, 2017 17:29 - CONCLUSION: No evidence of intra-abdominal abscess collection. Nikita Damon MD Abdomen X-Ray 06/02/17 0000 Signed Impressions: Service Date/Time: Friday, June 02, 2017 15:20 - CONCLUSION: OG tube in the stomach. Mike Davis MD FACR Chest CT 06/01/17 0000 Signed Impressions: Service Date/Time: May 18:49 - CONCLUSION: 1. Dense consolidation in both posterior lower lobes right greater than left with air bronchograms. This could represent pneumonia. 2. Small bilateral pleural effusions. 3. Mild cardiomegaly. Austin Orellana MD Brain MRI 06/01/17 0000 Signed Impressions: Service Date/Time: May 19:15 - CONCLUSION: 1. Multiple new small scattered punctate areas of restricted diffusion consistent with small areas of infarction. This could be secondary to emboli. 2. No acute hemorrhage or mass effect. 3. Acute sinusitis in the ethmoidal air cells and sphenoid sinus with air fluid levels. Austin Orellana MD Abdomen/Pelvis CT 06/01/17 0000 Signed Impressions: Service Date/Time: May 18:49 - CONCLUSION: 1. Suboptimal opacification of the bowel with the distal small bowel unopacified. There is a questionable abnormal gas collection in the anterior lower pelvis. An abscess is not excluded. A repeat study is recommended after additional oral contrast is given. 2. Consolidation in both posterior lung bases with small pleural effusions. Austin Orellana MD Renal Ultrasound 05/31/17 0000 Signed Impressions: Service Date/Time: Wednesday, May 31, 2017 20:47 - CONCLUSION: 1. Suboptimal exam with visualization. 2. No evidence of hydronephrosis. 3. Cyst extending off right kidney. Austin Orellana MD Lower Extremity Ultrasound 05/29/17 0000 Signed Impressions: Service Date/Time: Monday, May 29, 2017 13:10 - CONCLUSION: 1. No evidence of deep venous thrombosis. Monty Gross MD Tumor Localization 05/26/17 0000 Signed Impressions: Service Date/Time: Friday, May 26, 2017 13:36 - CONCLUSION: No abnormal uptake identified to suggest infection. Nikita Damon MD Liver Ultrasound 05/21/17 0000 Signed Impressions: Service Date/Time: Sunday, May 21, 2017 10:32 - CONCLUSION: 1. Hepatic steatosis. 2. Gallstones 3. Limited evaluation of the right kidney. Santana Lamar MD Head CT [id number] Signed Impressions: Service Date/Time: Saturday, May 20, 2017 19:55 - CONCLUSION: 1. No acute findings. Retention cyst right maxillary sinus. Jakob Scruggs MD Physical Exam HEENT: Normocephalic; atraumatic; no jaundice. CHEST: Intubated. Coarse breath sounds throughout CARDIAC: Tachycardic ABDOMEN: Soft, obese, nondistended, nontender; bowel sounds are present. EXTREMITIES: Generalized edema. SKIN: No rash; no jaundice. [employer]: Sedated on vent, does follow commands. (Evelin Zheng [facility]) Assessment and Plan Plan ASSESSMENT: - ? Diverticular abscess. CT scan without IV contrast (06/01/17)---> Suboptimal opacification of the bowel with the distal small bowel unopacified. There is a questionable abnormal gas collection in the anterior lower pelvis. An abscess is not excluded. A repeat study is recommended after additional oral contrast is given. Consolidation in both posterior lung bases with small pleural effusions. S/P GS evaluation, recommends CT guided drainage/drain placement of intra-abdominal abscess, however, CT scan without evidence of abdominal abscess. GS signed off, as there is no obvious intraabdominal source. WBC 7.1. - Elevated LFTs. Shocked liver. LFTs of T. Bili 0.4, AST 239, ALT 130, ALk Phosph 118. Likely secondary to infection, medication (Micafungin d/c'd 06/03). Of note she is on Keppra. If worsening LFTs, would recommend alternative if possible. - Sepsis/Bacteremia (Gr. B Beta Strep)/Discitis. STEVEN negative. Flagyl, Rocephin. - Resp. Failure, HCAP, Aspiration PNA, CHE. - Encephalopathy. MRI of the brain, which revealed multiple new small scattered punctate areas of restricted diffusion consistent with small areas of infarction, this could be secondary to emboli. Cardiology was consulted and she underwent STEVEN 06/02, which was negative for vegetations. - Anemia. 9.6/29.2. - JAMES. Cr 1.56 - DM, Hyperlipidemia per attending. PLAN: - TF - Antibiotics per ID - Monitor LFTs - GS following - ID following - CCM following - If worsening LFTs, consider changing Keppra if possible. - GI will sign off, please reconsult as needed - Pt seen and examined by Dr. Servin and myself and this note is written on his behalf (Evelin Zheng) Physician Comments Seen and examined, plan as above. Please notify us if needed. (Myra Servin MD) Evelin Zheng Jun 05, 2017 09:56 Myra Servin MD Jun 05, 2017 10:05
[2017-06-05] MEDS: SODIUM PHOSPHATE INJ 30 MMOL in SODIUM CHLOR 0.9% 250 ML INJ 240 ML IV PRN (11:06)
[2017-06-05] MEDS: INSULIN REGULAR (IV INFUSION) 100 UNITS in SODIUM CHLORIDE 0.9% INJ 99 ML IV PRN (11:09)
--- NOTE | 2017-06-05 11:13 | HHI.IDPN ---
Subjective Subjective Remarks Remarks is a 66-year-old female presents confused and lethargic. Patient reportedly was recently seen today at an urgent care and received an injection for low back pain. Patient here denies headaches, chest pain or shortness of breath, abdominal pain or extremity pain. Patient does complain of low back pain. at bedside states that they're visiting from out of state for the past 3 months and will be returning back to their home state in a week. reports patient has chronic low back pain but this exacerbated over the last 24 hours starting yesterday morning. Patient was seen earlier today by her chiropractor for an adjustment and then was referred to an urgent care. Patient reportedly had a fever at the chiropractor's office and felt cold and clammy. At the urgent care patient was evaluated and reportedly had an injection of a nonsteroidal medication as she is diabetic and he did not want to give her a steroid injection. Patient went home about 1:00 PM she was drowsy so sat down in a chair and fell asleep according to the . He tried to awaken her at 4:30 and noticed that she was confusional and lethargic. He attempted to continue to awaken her over the next 2-3 hours and because she was not improving decided finally to call EMS to transport her to the emergency room. Patient and spouse denied any recent injury or fall. Patient was ambulatory this morning but this evening has difficulty elevating her lower extremities as well as she was generally extremely weak. ID following for Strep bacteremia, probable endocarditis, Septic emboli cerebral , discitis based on 1st imaging. bilateral LE cellulitis. Overall slightly improved since last seen by me. Opens eyes spontaneously. RN reports when off sedation earlier was responding to simple commands. UOP improved but still dark. afebrile off pressors tolerating FiO2 40%, PEEP 8. No rash No diarrhea Antibiotics CFTX flagyl Lines Line sites with no e.o infection Past Medical History Diabetes Dyslipidemia Hypertension Chronic back pain sees a chiropracter. Chronic lower extremity swelling. Never had an ECHO before per pt and spouse. ? Sleep apnea. Allergies: Coded Allergies: No Known Allergies (Unverified , 05/20/17) Objective . Vital Signs Date Time Temp Pulse Resp B/P (MAP) Pulse Ox O2 Delivery O2 Flow Rate FiO2 06/05/17 10:00 87 06/05/17 08:00 40 06/05/17 08:00 98.3 91 22 164/69 (100) 95 06/05/17 08:00 91 06/05/17 07:28 99 40 06/05/17 06:00 91 06/05/17 05:30 95 40 06/05/17 04:00 40 06/05/17 04:00 81 06/05/17 04:00 98.1 81 20 130/60 (83) 99 06/05/17 02:00 90 06/05/17 00:08 96 40 06/05/17 00:00 85 06/05/17 00:00 40 06/05/17 00:00 98.4 85 21 144/63 (90) 95 06/04/17 22:00 87 06/04/17 20:00 93 06/04/17 20:00 40 06/04/17 20:00 98.1 93 26 160/67 (98) 96 06/04/17 18:00 86 06/04/17 16:27 99 40 06/04/17 16:00 40 06/04/17 16:00 98.0 86 24 154/72 (99) 99 06/04/17 16:00 86 06/04/17 14:43 100 40 06/04/17 14:00 87 06/04/17 12:00 98.0 85 25 158/68 (98) 98 06/04/17 12:00 85 06/04/17 12:00 40 06/04/17 11:36 99 40 . Laboratory Tests Test 06/04/17 05:30 06/05/17 05:30 White Blood Count 8.1 TH/MM3 7.1 TH/MM3 Red Blood Count 3.10 MIL/MM3 3.25 MIL/MM3 Hemoglobin 9.1 GM/DL 9.6 GM/DL Hematocrit 28.3 % 29.2 % Mean Corpuscular Volume 91.3 FL 90.0 FL Mean Corpuscular Hemoglobin 29.5 PG 29.5 PG Mean Corpuscular Hemoglobin Concent 32.3 % 32.8 % Red Cell Distribution Width 16.5 % 16.6 % Platelet Count 147 TH/MM3 181 TH/MM3 Mean Platelet Volume 10.4 FL 10.0 FL Neutrophils (%) (Auto) 81.3 % Lymphocytes (%) (Auto) 9.4 % Monocytes (%) (Auto) 8.3 % Eosinophils (%) (Auto) 0.0 % Basophils (%) (Auto) 1.0 % Neutrophils # (Auto) 6.6 TH/MM3 Lymphocytes # (Auto) 0.8 TH/MM3 Monocytes # (Auto) 0.7 TH/MM3 Eosinophils # (Auto) 0.0 TH/MM3 Basophils # (Auto) 0.1 TH/MM3 CBC Comment AUTO DIFF Differential Total Cells Counted 100 Neutrophils % (Manual) 68 % Band Neutrophils % 26 % Lymphocytes % 3 % Monocytes % 3 % Neutrophils # (Manual) 7.6 TH/MM3 Differential Comment FINAL DIFF MANUAL Platelet Estimate NORMAL Platelet Morphology Comment NORMAL Red Cell Morphology Comment NORMAL Laboratory Tests Test 06/04/17 05:30 06/04/17 08:00 06/05/17 05:30 Blood Urea Nitrogen 21 MG/DL 20 MG/DL Creatinine 1.14 MG/DL 0.88 MG/DL Random Glucose 209 MG/DL 171 MG/DL Total Protein 5.8 GM/DL 5.9 GM/DL Calcium Level 7.1 MG/DL 7.4 MG/DL Sodium Level 140 MEQ/L 143 MEQ/L Potassium Level 2.8 MEQ/L 3.4 MEQ/L Chloride Level 107 MEQ/L 110 MEQ/L Carbon Dioxide Level 18.6 MEQ/L 22.1 MEQ/L Anion Gap 14 MEQ/L 11 MEQ/L Estimat Glomerular Filtration Rate 48 ML/MIN 64 ML/MIN Protein Corrected Calcium 7.8 MG/DL 8.1 MG/DL Phosphorus Level 1.5 MG/DL 1.6 MG/DL Magnesium Level 1.5 MG/DL Imaging Last Impressions Lumbar Spine MRI 06/03/17 0000 Signed Impressions: Service Date/Time: Saturday, June 03, 2017 15:42 - CONCLUSION: The MRI findings after contrast administration are not convincing for presence of active infection within the L3/L4 disc, adjacent vertebral bodies or epidural space/adjacent soft tissues. Santana Eric MD Pelvis CT 06/02/17 0000 Signed Impressions: Service Date/Time: Friday, June 02, 2017 17:29 - CONCLUSION: No evidence of intra-abdominal abscess collection. Nikita Damon MD Chest X-Ray 06/02/17 0000 Signed Impressions: Service Date/Time: Friday, June 02, 2017 15:14 - CONCLUSION: 1. Cardiomegaly. 2. Perihilar infiltrates consistent with mild to moderate pulmonary vascular congestion versus pneumonia. 3. Small right pleural effusion. 4. Multiple tubes and lines are stable. Nikita Damon MD Abdomen X-Ray 06/02/17 0000 Signed Impressions: Service Date/Time: Friday, June 02, 2017 15:20 - CONCLUSION: OG tube in the stomach. Mike Davis MD FACR Chest CT 06/01/17 0000 Signed Impressions: Service Date/Time: May 18:49 - CONCLUSION: 1. Dense consolidation in both posterior lower lobes right greater than left with air bronchograms. This could represent pneumonia. 2. Small bilateral pleural effusions. 3. Mild cardiomegaly. Austin Orellana MD Brain MRI 06/01/17 0000 Signed Impressions: Service Date/Time: May 19:15 - CONCLUSION: 1. Multiple new small scattered punctate areas of restricted diffusion consistent with small areas of infarction. This could be secondary to emboli. 2. No acute hemorrhage or mass effect. 3. Acute sinusitis in the ethmoidal air cells and sphenoid sinus with air fluid levels. Austin Orellana MD Abdomen/Pelvis CT 06/01/17 0000 Signed Impressions: Service Date/Time: May 18:49 - CONCLUSION: 1. Suboptimal opacification of the bowel with the distal small bowel unopacified. There is a questionable abnormal gas collection in the anterior lower pelvis. An abscess is not excluded. A repeat study is recommended after additional oral contrast is given. 2. Consolidation in both posterior lung bases with small pleural effusions. Austin Orellana MD Renal Ultrasound 05/31/17 0000 Signed Impressions: Service Date/Time: Wednesday, May 31, 2017 20:47 - CONCLUSION: 1. Suboptimal exam with visualization. 2. No evidence of hydronephrosis. 3. Cyst extending off right kidney. Austin Orellana MD Lower Extremity Ultrasound 05/29/17 0000 Signed Impressions: Service Date/Time: Monday, May 29, 2017 13:10 - CONCLUSION: 1. No evidence of deep venous thrombosis. Monty Gross MD Tumor Localization 05/26/17 0000 Signed Impressions: Service Date/Time: Friday, May 26, 2017 13:36 - CONCLUSION: No abnormal uptake identified to suggest infection. Nikita Damon MD Liver Ultrasound 05/21/17 0000 Signed Impressions: Service Date/Time: Sunday, May 21, 2017 10:32 - CONCLUSION: 1. Hepatic steatosis. 2. Gallstones 3. Limited evaluation of the right kidney. Santana Lamar MD Head CT 05/20/17 192 Signed Impressions: Service Date/Time: Saturday, May 20, 2017 19:55 - CONCLUSION: 1. No acute findings. Retention cyst right maxillary sinus. Jakob Scruggs MD Physical Exam GENERAL: Obese patient. sedated int'd on mech vent SKIN: No rashes. Ecchymosis noted. No Janeway lesion no splinter hemorrhages. HEAD: Atraumatic. Normocephalic. EYES: Pupils equal round and reactive. Extraocular motions intact. No scleral icterus. No injection or drainage. ENT: Nose without bleeding, purulent drainage or septal hematoma. Throat without erythema, tonsillar hypertrophy or exudate. Uvula midline. Airway patent. NECK: Large neck, intubated. Supple CARDIOVASCULAR: Regular rate and rhythm without murmurs. well perused periphery with good refill RESPIRATORY: Breath sounds equal bilaterally.Clear to auscultation anteriorly GASTROINTESTINAL: Abdomen soft, non-tender, nondistended. Obese. No hepatosplenomegaly Incontinent of dark liquid stool chiu in place with red lead burner appearing urine in chiu bag (yulissa) MUSCULOSKELETAL: Extremities without clubbing, cyanosis. Improved, soft edema, generalized anasarca, 3- 4+ NEUROLOGICAL: Sedated, on versed, moves extremities on painful stimuli both upper and lower extremities. Psych unable to assess IV line sites with no e/o infection. Assessment & Plan Remarks Septic Shock with MODS HCAP/plus aspiration pneumonia. 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 Strep Grp B bacteremia sources: ? GI, skin as source. STEVEN neg, but done 2 weeks after abx were started ? embolic strokes Bilateral R> L LE cellulitis: improved. Acute renal failure UO improving. GFR > 40 Acute resp failure: pulm edema,aspiration PNA, sleep apnea. MRI of T spine negative Abnormal LFTs: sepsis related, ? rhabdo elevated CK. HTN DM2 uncontrolled. Obesity BMI 49.7 kg/m2 Recs: Continue Ceftriaxone IV q12 for possible meningitis/epidural abscess. DC Flagyl IV may be contributing to encephalopathy. If any clinical change will consider alternate anaerobic coverage but at this point s/p 5 days of anaerobic coverage. d/w GI re: EGD and Colonoscopy due to Strep organism. CT Abd/pelvis with no abscess. Follow clinically. d/w RN. Nan Portillo MD Jun 05, 2017 11:13
--- NOTE | 2017-06-05 12:15 | HHI.PR ---
Subjective Subjective Notes Intubated/Sedated Objective Vitals/I&O Vital Signs Date Time Temp Pulse Resp B/P (MAP) Pulse Ox O2 Delivery O2 Flow Rate FiO2 06/05/17 12:00 95 06/05/17 12:00 98.3 23 170/73 (105) 94 06/05/17 12:00 40 06/03/17 20:00 Mechanical Ventilator Labs Laboratory Tests Test 06/04/17 15:43 06/05/17 05:30 Phenytoin (Dilantin) Level 11.0 White Blood Count 7.1 Red Blood Count 3.25 Hemoglobin 9.6 Hematocrit 29.2 Mean Corpuscular Volume 90.0 Mean Corpuscular Hemoglobin 29.5 Mean Corpuscular Hemoglobin Concent 32.8 Red Cell Distribution Width 16.6 Platelet Count 181 Mean Platelet Volume 10.0 Blood Urea Nitrogen 20 Creatinine 0.88 Random Glucose 171 Total Protein 5.9 Calcium Level 7.4 Phosphorus Level 1.6 Sodium Level 143 Potassium Level 3.4 Chloride Level 110 Carbon Dioxide Level 22.1 Anion Gap 11 Estimat Glomerular Filtration Rate 64 Protein Corrected Calcium 8.1 Date/Time Source Procedure Growth Status 06/01/17 12:08 Blood Peripheral Blood Fungal Culture Pending Received 06/01/17 12:08 Blood Peripheral Blood Fungal Culture Pending Received 06/01/17 14:35 Cerebral Spinal Fluid Lumbar Puncture Fungal Smear - Final NO FUNGAL ELEMENTS SEEN. Resulted 06/01/17 14:35 Cerebral Spinal Fluid Lumbar Puncture Fungal Culture Pending Resulted 06/01/17 03:50 Sputum Endotracheal Gram Stain - Final Complete 06/01/17 03:50 Sputum Endotracheal Sputum Culture - Final MODERATE GROWTH NORMAL RESPIRATORY BRAYAN Complete 05/30/17 13:30 Urine Catheterized Urine Urine Culture - Final NO GROWTH IN 48 HOURS. Complete Radiology Last [address] 06/02/17 0000 Signed Impressions: Service Date/Time: Friday, June 02, 2017 17:29 - CONCLUSION: No evidence of intra-abdominal abscess collection. Nikita Damon MD Chest X-Ray 06/02/17 0000 Signed Impressions: Service Date/Time: Friday, June 02, 2017 15:14 - CONCLUSION: 1. Cardiomegaly. 2. Perihilar infiltrates consistent with mild to moderate pulmonary vascular congestion versus pneumonia. 3. Small right pleural effusion. 4. Multiple tubes and lines are stable. Nikita Damon MD Abdomen X-Ray 06/02/17 Signed Impressions: Service Date/Time: Friday, June 02, 2017 15:20 - CONCLUSION: OG tube in the stomach. Mike Davis MD FACR Lumbar Spine MRI 06/01/17 Signed Impressions: Service Date/Time: May 19:15 - CONCLUSION: 1. Atypical signal changes remain in the L3-4 disc and adjacent endplates The findings remain nonspecific. There is a moderate size posterior central epidural mass with mass effect on the anterior thecal sac. There is moderate central canal stenosis. The differential diagnosis includes disc protrusion versus small epidural abscess. A contrast enhanced lumbar spine study may be helpful for further evaluation. 2. Mild disc bulges at L2-3 and L4-5 levels with mild flattening the anterior thecal sac. Austin Orellana MD Chest CT 06/01/17 Signed Impressions: Service Date/Time: May 18:49 - CONCLUSION: 1. Dense consolidation in both posterior lower lobes right greater than left with air bronchograms. This could represent pneumonia. 2. Small bilateral pleural effusions. 3. Mild cardiomegaly. Austin Orellana MD Brain MRI 06/01/17 Signed Impressions: Service Date/Time: May 19:15 - CONCLUSION: 1. Multiple new small scattered punctate areas of restricted diffusion consistent with small areas of infarction. This could be secondary to emboli. 2. No acute hemorrhage or mass effect. 3. Acute sinusitis in the ethmoidal air cells and sphenoid sinus with air fluid levels. Austin Orellana MD Abdomen/Pelvis CT 06/01/17 Signed Impressions: Service Date/Time: May 18:49 - CONCLUSION: 1. Suboptimal opacification of the bowel with the distal small bowel unopacified. There is a questionable abnormal gas collection in the anterior lower pelvis. An abscess is not excluded. A repeat study is recommended after additional oral contrast is given. 2. Consolidation in both posterior lung bases with small pleural effusions. Austin Orellana MD Cardiovascular: Regular Lungs: Clear Abdomen: Other (obese abdomen; soft non tender non distended ) Extremities: Other (generalized edema; BLE redness improved ) A/P Problem List: (1) Septic embolism ICD Codes: I26.90 - Septic pulmonary embolism without acute cor pulmonale (2) Diabetes ICD Codes: E11.9 - Type 2 diabetes mellitus without complications Status: Acute (3) Altered mental status ICD Codes: R41.82 - Altered mental status, unspecified Status: Acute (4) Septic shock ICD Codes: A41.9 - Sepsis, unspecified organism; R65.21 - Severe sepsis with septic shock (5) Acute renal failure ICD Codes: N17.9 - Acute kidney failure, unspecified Status: Acute (6) SIRS (systemic inflammatory response syndrome) ICD Codes: R65.10 - Systemic inflammatory response syndrome (SIRS) of non- infectious origin without acute organ dysfunction Status: Acute (7) Bacteremia due to group B Streptococcus ICD Codes: R78.81 - Bacteremia (8) Morbid obesity ICD Codes: E66.01 - Morbid (severe) obesity due to excess calories (9) Cerebral septic emboli ICD Codes: I76 - Septic arterial embolism; I66.9 - Occlusion and stenosis of unspecified cerebral artery Assessment and Plan 66 year old female VDRF; sepsis -Repeat CT abd/pelvis negative for IAA -Lumbar MRI also negative -ID following -WBC improved -Now off pressors -No acute GS needs at this time -Will sign off but please call if any issues come up Attending Note - Dr. High No changes in abdominal exam over the weekend The exam, history, and the medical decision-making described in the above note were completed with the assistance of the mid-level provider. I reviewed and agree with the findings presented. I attest that I had a [id number] encounter with the patient on the same day, and personally performed and documented my assessment and findings in the medical record. Problem Qualifiers (1) Diabetes: (2) Altered mental status: Qualified Codes: R41.82 - Altered mental status, unspecified (3) Acute renal failure: Qualified Codes: N17.9 - Acute kidney failure, unspecified Shanell Moran Jun 05, 2017 12:15 Austin High MD Jun 06, 2017 18:18
--- NOTE | 2017-06-05 13:22 | HHI.NPPN ---
Subjective History of Present Illness 66 year old female with Sepsis, possible Meningitis/Discitis, ARF Additional Remarks Patient remain intubated open eyes more responsive Review of Systems General General Remarks Intubated and sedated. Objective Data Data 06/05/17 06/06/17 19:00 07:00 Intake Total 207.5 ml Balance 207.5 ml IV Total 207.5 ml Vital Signs Date Time Temp Pulse Resp B/P (MAP) Pulse Ox O2 Delivery O2 Flow Rate FiO2 06/05/17 12:00 95 06/05/17 12:00 98.3 92 23 170/73 (105) 94 06/05/17 12:00 40 06/05/17 11:20 94 40 06/05/17 10:00 87 06/05/17 08:00 40 06/05/17 08:00 98.3 91 22 164/69 (100) 95 06/05/17 08:00 91 06/05/17 07:28 99 40 06/05/17 06:00 91 06/05/17 05:30 95 40 06/05/17 04:00 40 06/05/17 04:00 81 06/05/17 04:00 98.1 81 20 130/60 (83) 99 06/05/17 02:00 90 06/05/17 00:08 96 40 06/05/17 00:00 85 06/05/17 00:00 40 06/05/17 00:00 98.4 85 21 144/63 (90) 95 06/04/17 22:00 87 06/04/17 20:00 93 06/04/17 20:00 40 06/04/17 20:00 98.1 93 26 160/67 (98) 96 06/04/17 18:00 86 06/04/17 16:27 99 40 06/04/17 16:00 40 06/04/17 16:00 98.0 86 24 154/72 (99) 99 06/04/17 16:00 86 06/04/17 14:43 100 40 06/04/17 14:00 87 -: 06/05/17 0530 06/05/17 0530 Physical Exam General Appearance: Well Developed, Obese Neck Neck Exam: Neck Supple Pulmonary Resp Exam: Decreased Bases Cardiology CV Exam: Tachycardia Gastrointestinal/Abdomen GI Exam: Soft, Non-Tender, Bowel Sounds Present Extremeties Extremities Exam: Pitting Edema Assessment/Plan Problem List: (1) Acute renal failure ICD Codes: N17.9 - Acute kidney failure, unspecified Status: Acute Plan: Patient has septic shock and low blood pressure which can cause acute tubular necrosis I reviewed kidney ultrasound cyst but no hydro Urine lytes consistent with ATN intubated CPK declined Rhabdo resolving Creatinine normal resoled ARF K replaced STEVEN neg ID following I will follow as needed (2) Septic shock ICD Codes: A41.9 - Sepsis, unspecified organism; R65.21 - Severe sepsis with septic shock Plan: Patient is on broad-spectrum antibiotics. Infectious disease is following the patient she's getting Zyvox, Ceftolozane, metronidazole, Micafungin. (3) Bacteremia due to group B Streptococcus ICD Codes: R78.81 - Bacteremia Plan: She does have streptococcal infection (4) SIRS (systemic inflammatory response syndrome) ICD Codes: R65.10 - Systemic inflammatory response syndrome (SIRS) of non- infectious origin without acute organ dysfunction Status: Acute Plan: Critical care is following (5) Acute hypercapnic respiratory failure ICD Codes: J96.02 - Acute respiratory failure with hypercapnia Plan: On O2 (6) Diabetes ICD Codes: E11.9 - Type 2 diabetes mellitus without complications Status: Acute Plan: Continue to monitor blood glucose Problem Qualifiers (1) Acute renal failure: Qualified Codes: N17.9 - Acute kidney failure, unspecified (2) Diabetes: Roberto Cabrera MD Jun 05, 2017 13:22
--- NOTE | 2017-06-05 19:14 | HHI.CCPN ---
Subjective Remarks/Hospital Course 66-year-old female presents confused and lethargic. Patient reportedly was recently seen today at an urgent care and received an injection for low back pain. Patient here denies headaches, chest pain or shortness of breath, abdominal pain or extremity pain. Patient does complain of low back pain. at bedside states that they're visiting from out of state for the past 3 months and will be returning back to their home state in a week. reports patient has chronic low back pain but this exacerbated over the last 24 hours starting yesterday morning. Patient was seen earlier today by her chiropractor for an adjustment and then was referred to an urgent care. Patient reportedly had a fever at the chiropractor's office and felt cold and clammy. At the urgent care patient was evaluated and reportedly had an injection of a nonsteroidal medication as she is diabetic and he did not want to give her a steroid injection. Patient went home about 1:00 PM she was drowsy so sat down in a chair and fell asleep according to the . He tried to awaken her at 4:30 and noticed that she was confusional and lethargic. He attempted to continue to awaken her over the next 2-3 hours and because she was not improving decided finally to call EMS to transport her to the emergency room. Patient and spouse denied any recent injury or fall. Patient was ambulatory this morning but this evening has difficulty elevating her lower extremities as well as she was generally extremely weak. 05/21 Patient is on BIPAP 12/5 with 45% FIO2. Afebrile. Awake. Renal function is improving with Cr: 1.87 from 2.74. 05/22 No events overnight. Patient is more awake and alert off BIPAP. Renal function is improving with Cr: 1.07 from 1.87. delayed note entry. consulted and seen at ~1500. RECONSULT NOTE: 05/30: reconsulted for worsening hypoxemia. now on 6L facemask. please refer to prior consult note for detailed medical history. In brief, 66yF lethargic female, back pain after injection, ? discitis/osteo, on abx for group B strep, worsening fever, tachycardia, tachypnea, o2 requirement to 6L facemask and RR up to 40s. patient unable to provide additional history but does appear in distress. 05/31: Patient remains encephalopathic, on high flow O2 via nasal cannula, this morning was on 60 L/m 55% FiO2. Subsequently has dropped to 30 L/m to extubate percent FiO2. Given 80 mg IV Lasix with no response. Subsequently given Bumex 2 mg IV push and started on Bumex drip at 1 mg/h to attempt to diurese in an effort to improve respiratory status however has not had any increase in urine output with Bumex drip. Creatinine came back elevated at 2.13. Suspect acute kidney injury/ATN which may be a reason for poor response to diuretics. She also spiked a temperature of 103 for which IV Ofirmev was ordered. 06/01: intubated overnight and hypotensive requiring vasopressors. now remains in shock on 2 vasopressors. bedside critical care echo demonstrates hyperdynamic LV with completely collapsed IVC. gave 2L bolus and started on mivf @ 100 cc/hr. still spiking fevers. discussed with Dr. Portillo and plan to repeat LP as well as cultures and imaging to look for source. clinically worse today. 06/02: off vasopressors. remains intubated and sedated, very encephalopathic. MRI with new punctate strokes. STEVEN being done today. also ? abscess in the pelvis of unknown origin, maybe contained diverticulitis? CT guided drainage. although some improvements in hemodynamics, no improvements in vent or encephalopathy. off pathway. 06/03: IR re-ct scan without any evidence of abdominal abscess. blood glucose still not controlled despite high dose algorithm. wbc downtrending. 06/04: wbc continues to downtrend. Cr improving as well. very hypokalemic despite aggressive replacement. blood glucose now < 200, but using high dose insulin drip and levemir. encephalopathy persists. 06/05: clinically improving. weakly following commands this morning. renal function improved. EEG negative for seizures. still too sleepy for safe extubation, but improved from yesterday. Objective Vital Signs Date Time Temp Pulse Resp B/P (MAP) Pulse Ox O2 Delivery O2 Flow Rate FiO2 06/05/17 18:00 99 06/05/17 16:39 40 06/05/17 16:00 99.4 26 173/73 (106) 95 06/03/17 20:00 Mechanical Ventilator Intake and Output 06/05/17 06/05/17 06/06/17 08:00 16:00 00:00 Intake Total 365 ml 207.5 ml 512 ml Output Total 650 ml 400 ml Balance -285 ml 207.5 ml 112 ml Result Diagram: 06/05/17 0530 06/05/17 0530 Imaging Last Impressions Liver Ultrasound 05/21/17 0000 Signed Impressions: Service Date/Time: Sunday, May 21, 2017 10:32 - CONCLUSION: 1. Hepatic steatosis. 2. Gallstones 3. Limited evaluation of the right kidney. Santana Lamar MD Chest X-Ray 05/21/17 0000 Signed Impressions: Service Date/Time: Sunday, May 21, 2017 06:17 - CONCLUSION: 1. Limited suboptimal study with motion artifact. 2. No definite acute cardiac pulmonary disease. Austin Orellana MD Head CT 05/20/17 192 Signed Impressions: Service Date/Time: Saturday, May 20, 2017 19:55 - CONCLUSION: 1. No acute findings. Retention cyst right maxillary sinus. Jakob Scruggs MD Objective Remarks GENERAL: Patient is 66 yo lying in bed, intubated, sedated. SKIN: Warm and dry. HEAD: Normocephalic. EYES: No scleral icterus. No injection or drainage. NECK: trachea midline. large neck prevents accurate assessment of JVD. CARDIOVASCULAR: tachycardic rate, regular rhythm. RESPIRATORY: intubated, fio2 40%, coarse breath sounds bilaterally, improved from yesterday. GASTROINTESTINAL: Abdomen soft, non-tender, nondistended. MUSCULOSKELETAL: No cyanosis, or edema. Neuro: RASS -2/3. CAM +. intermittently weakly follows commands. Procedures None Date of Insertion: May 25, 2017 A/P Assessment and Plan Assessment: 66yF with encephalopathy thought to be secondary to [employer]AVE C[employer] infection vs. toxic/metabolic, hypoxic respiratory failure, resolving sepsis. first signs of real improvement in mental status, which is reassuring. will follow closely. can start SBTs today, though not ready for extubation. continue forced diuresis. Plan: Neuro: Metabolic Encephalopathy- severe and persistent Discitis Possible [employer] Infection Acute CVA, multifocal areas of ischemia - RASS goal -2. - fentanyl. - amantadine for wakefulness - add modafinil for wakefulness. - carotid dopplers - frequent neuro checks - abx per ID. - daily sedation vacations. - aspirin - hold statin given elevation in LFTs. start when able. Resp: Acute hypoxic and hypercarbic respiratory failure - persistent. - vent bundle, hob at 30 degrees, nebs - wean fio2 for spo2 > 90% - forced diuresis, lasix 40mg iv x 1 again today. - start SBTs. CV: Septic Shock - resolved. - off vasopressors - STEVEN negative for vegetations, small PFO. Renal: Acute kidney injury- resolving - continue Reid - forced diuresis with lasix today. - daily bmp FEN/GI: Shock liver - persistent Morbid obesity Hypokalemia Volume overload Acute protein calorie malnutrition- moderate - glucerna tube feeds - ICU electrolyte protocol - daily bmp - trend LFTs Heme/ID: Septic Shock - resolved Discitis Possible healthcare associated aspiration pneumonia Strep bacteremia (recent blood cultures negative) - abx per ID - cultures NGTD - if discitis is truly the source and no improvements, could consider disc biopsy in the future. - abx per ID. Zerbaxa and Micafungin d/c'd 06/03. continues on Rocephin. d/c flagyl per ID today. - all cultures NGTD so far. Endocrine: Severe hyperglycemia Presumed Adrenal Insufficiency - steroid taper - severe hyperglycemia despite high dose insulin drip - continue insulin drip Algorithm #4. - continue Levemir 50 units SQ q12h (~30% of 24h needs). - slightly improved and lower insulin drip requirements today. Prophylaxis: - pepcid - SCDs - SQH Lines: - 06/01 central line. keep today for electrolyte replacement. - Bang Plasencia MD Jun 05, 2017 19:14
[2017-06-05] MEDS ORDERED: FUROSEMIDE 40 MG/4 ML VIAL IV PUSH ONE (19:15)
--- NOTE | 2017-06-05 19:30 | HHI.PR ---
Subjective Remarks 66 YOObese WF with Hypercapnoea, Cellulitis, Bactremia Encephalopathic Intubated Off sedation Tolerated CPAP for 1 hr Objective Vital Signs Vital Signs Date Time Temp Pulse Resp B/P (MAP) Pulse Ox O2 Delivery O2 Flow Rate FiO2 06/05/17 18:00 99 06/05/17 16:39 40 06/05/17 16:00 40 06/05/17 16:00 99 06/05/17 16:00 99.4 99 26 173/73 (106) 95 06/05/17 15:45 40 06/05/17 15:35 95 40 06/05/17 15:30 40 06/05/17 14:00 96 06/05/17 12:00 95 06/05/17 12:00 98.3 92 23 170/73 (105) 94 06/05/17 12:00 40 06/05/17 11:20 94 40 06/05/17 10:00 87 06/05/17 08:00 40 06/05/17 08:00 98.3 91 22 164/69 (100) 95 06/05/17 08:00 91 06/05/17 07:28 99 40 06/05/17 06:00 91 06/05/17 05:30 95 40 06/05/17 04:00 40 06/05/17 04:00 81 06/05/17 04:00 98.1 81 20 130/60 (83) 99 06/05/17 02:00 90 06/05/17 00:08 96 40 06/05/17 00:00 85 06/05/17 00:00 40 06/05/17 00:00 98.4 85 21 144/63 (90) 95 06/04/17 22:00 87 06/04/17 20:00 93 06/04/17 20:00 40 06/04/17 20:00 98.1 93 26 160/67 (98) 96 I/O 06/04/17 06/04/17 06/04/17 06/05/17 06/05/17 06/05/17 07:00 15:00 23:00 07:00 15:00 23:00 Intake Total 905.5 ml 119.3 ml 790.9 ml 365 ml 207.5 ml 512 ml Output Total 400 ml 1550 ml 650 ml 400 ml Balance 505.5 ml 119.3 ml -759.1 ml -285 ml 207.5 ml 112 ml IV Total 905.5 ml 119.3 ml 790.9 ml 350 ml 207.5 ml 392 ml Tube Feeding 60 ml Tube Irrigant 15 ml Other 60 ml Output Urine Total 400 ml 1550 ml 450 ml 400 ml Stool Total 200 ml # Bowel Movements 2 Result Diagram: 06/05/1752906/05/17529 Objective Remarks GENERAL: Morbidly obese WF, mild sob SKIN: Warm and dry. HEAD: Normocephalic. EYES: No scleral icterus. No injection or drainage. NECK: Supple, trachea midline. No JVD or lymphadenopathy. CARDIOVASCULAR: Regular rate and rhythm without murmurs, gallops, or rubs. RESPIRATORY: Breath sounds equal bilaterally. No accessory muscle use. GASTROINTESTINAL: Abdomen soft, non-tender, nondistended. MUSCULOSKELETAL: No cyanosis, or edema. has swelling and redness of legs BACK: Nontender without obvious deformity. No CVA tenderness. A/P Assessment and Plan Hypercapnoic Resp Insuff CHE or Obesity Hypoventilation synd Cellulitis legs Bactremia back pain Sepsis Encephalopathy PLAN: Vent Support Aerosol nebs Wean 02 to keep sat 88-92% Abx per ID Cont DilantinGoing for intra abd drain CPAP trial in AM Dima Bang MD Jun 05, 2017 19:30
[2017-06-05] MEDS: RESP: ALBUTEROL 2.5 MG/IPRATROPIUM 0.5 MG NEB (PRN) NEB (19:41)
[2017-06-05] MEDS: MAGNESIUM SULFATE INJ 2 GM in SODIUM CHLORIDE 0.9% INJ 96 ML IV PRN (21:27)
[2017-06-05 22:50] LABS: POTASSIUM 3.1 MEQ/L (3.5-5.1)
[2017-06-05] MEDS ORDERED: hydrALAZINE HCL 20 MG/ML VIAL IV PUSH PRN (23:00)
[2017-06-05] MEDS: LABETALOL HCL 100 MG/20 ML VIAL IV PUSH PRN (23:16)
[2017-06-05] MEDS: POTASSIUM PHOSPHATE INJ 30 MMOL in SODIUM CHLOR 0.9% 250 ML INJ 250 ML IV PRN (23:16)
[2017-06-06] VITALS (18 sets, daily range): BP systolic 147–178; BP diastolic 65–76; PULSE 89–101; RESP 22–28; TEMP 98.6–100.8; O2SAT 91–98
[2017-06-06] MEDS: CHLORHEXIDINE GLUCONATE 2 % 1 PACK (2 CLOTHS) TOP SCH ×2 (01:24→01:50)
[2017-06-06] MEDS: INSULIN REGULAR (IV INFUSION) 100 UNITS in SODIUM CHLORIDE 0.9% INJ 99 ML IV PRN ×2 (01:27→13:11)
[2017-06-06] MEDS: RESP: ALBUTEROL 2.5 MG/IPRATROPIUM 0.5 MG NEB (PRN) NEB ×2 (03:33→08:30)
[2017-06-06 05:49] LABS: HEMATOCRIT 30.1 % (35.0-46.0); MEAN CELL VOLUME 88.6 FL (80.0-100.0); MEAN CORPUSCULAR HEMOGLOBIN 29.6 PG (27.0-34.0); MEAN CORPUSCULAR HGB CONC 33.4 % (32.0-36.0); PLATELET COUNT 161 TH/MM3 (150-450); RED BLOOD COUNT 3.39 MIL/MM3 (4.00-5.30); RED CELL DISTRIBUTION WIDTH 16.5 % (11.6-17.2); REVIEW FLAG FINAL; WHITE BLOOD COUNT 9.4 TH/MM3 (4.0-11.0)
[2017-06-06] MEDS: cefTRIAXone INJ 2,000 MG in SODIUM CHLORIDE 0.9% INJ 100 ML IV SCH ×2 (06:01→16:01)
[2017-06-06] MEDS: HEPARIN SODIUM - SQ 10,000 UNITS/ML VIAL SQ SCH ×3 (06:01→20:54)
[2017-06-06] MEDS: PHENYTOIN INJ 100 MG/2 ML VIAL IV SCH ×3 (06:02→20:54)
[2017-06-06] MEDS: AMANTADINE HCL SOLN 100 MG/10 ML UDC PO SCH ×2 (06:02→11:04)
[2017-06-06 06:14] LABS: BICARBONATE 24.6 MEQ/L (21.0-32.0); POTASSIUM 3.5 MEQ/L (3.5-5.1)
[2017-06-06] MEDS: LABETALOL HCL 100 MG/20 ML VIAL IV PUSH PRN ×2 (08:24→16:51)
[2017-06-06] MEDS: FAMOTIDINE 20 MG/2 ML VIAL IV PUSH SCH ×2 (08:26→20:54)
[2017-06-06] MEDS: HYDROCORTISONE SOD SUCCINATE 100 MG VIAL IV PUSH SCH (08:28)
[2017-06-06] MEDS: MODAFINIL 200 MG TAB PO SCH (08:31)
[2017-06-06] MEDS: INSULIN DETEMIR 100 UNITS/ML VIAL SQ SCH ×2 (08:31→20:53)
[2017-06-06] MEDS: DOCUSATE SODIUM 50 MG/SENNA 8.6 MG TAB PO SCH ×2 (08:31→20:53)
[2017-06-06] MEDS: levETIRAcetam INJ 750 MG in SODIUM CHLORIDE 0.9% INJ 100 ML IV SCH ×2 (08:33→20:54)
[2017-06-06] MEDS: SODIUM CHLORIDE 0.9% FLUSH 10 ML FLUSH IV FLUSH SCH ×2 (08:33→20:54)
[2017-06-06] MEDS: NYSTATIN 100,000 U/GM PWD 15 GM BTL TOPICAL SCH ×2 (08:37→20:53)
[2017-06-06] MEDS: ASPIRIN 325 MG TAB PO SCH (08:37)
[2017-06-06] MEDS: FREE WATER G-TUBE SCH ×4 (11:00→23:08)
--- NOTE | 2017-06-06 11:08 | HHI.CCPN ---
Subjective Remarks/Hospital Course 66-year-old female presents confused and lethargic. Patient reportedly was recently seen today at an urgent care and received an injection for low back pain. Patient here denies headaches, chest pain or shortness of breath, abdominal pain or extremity pain. Patient does complain of low back pain. at bedside states that they're visiting from out of state for the past 3 months and will be returning back to their home state in a week. reports patient has chronic low back pain but this exacerbated over the last 24 hours starting yesterday morning. Patient was seen earlier today by her chiropractor for an adjustment and then was referred to an urgent care. Patient reportedly had a fever at the chiropractor's office and felt cold and clammy. At the urgent care patient was evaluated and reportedly had an injection of a nonsteroidal medication as she is diabetic and he did not want to give her a steroid injection. Patient went home about 1:00 PM she was drowsy so sat down in a chair and fell asleep according to the . He tried to awaken her at 4:30 and noticed that she was confusional and lethargic. He attempted to continue to awaken her over the next 2-3 hours and because she was not improving decided finally to call EMS to transport her to the emergency room. Patient and spouse denied any recent injury or fall. Patient was ambulatory this morning but this evening has difficulty elevating her lower extremities as well as she was generally extremely weak. 05/21 Patient is on BIPAP 12/5 with 45% FIO2. Afebrile. Awake. Renal function is improving with Cr: 1.87 from 2.74. 05/22 No events overnight. Patient is more awake and alert off BIPAP. Renal function is improving with Cr: 1.07 from 1.87. delayed note entry. consulted and seen at ~1500. RECONSULT NOTE: 05/30: reconsulted for worsening hypoxemia. now on 6L facemask. please refer to prior consult note for detailed medical history. In brief, 66yF lethargic female, back pain after injection, ? discitis/osteo, on abx for group B strep, worsening fever, tachycardia, tachypnea, o2 requirement to 6L facemask and RR up to 40s. patient unable to provide additional history but does appear in distress. 05/31: Patient remains encephalopathic, on high flow O2 via nasal cannula, this morning was on 60 L/m 55% FiO2. Subsequently has dropped to 30 L/m to extubate percent FiO2. Given 80 mg IV Lasix with no response. Subsequently given Bumex 2 mg IV push and started on Bumex drip at 1 mg/h to attempt to diurese in an effort to improve respiratory status however has not had any increase in urine output with Bumex drip. Creatinine came back elevated at 2.13. Suspect acute kidney injury/ATN which may be a reason for poor response to diuretics. She also spiked a temperature of 103 for which IV Ofirmev was ordered. 06/01: intubated overnight and hypotensive requiring vasopressors. now remains in shock on 2 vasopressors. bedside critical care echo demonstrates hyperdynamic LV with completely collapsed IVC. gave 2L bolus and started on mivf @ 100 cc/hr. still spiking fevers. discussed with Dr. Portillo and plan to repeat LP as well as cultures and imaging to look for source. clinically worse today. 06/02: off vasopressors. remains intubated and sedated, very encephalopathic. MRI with new punctate strokes. STEVEN being done today. also ? abscess in the pelvis of unknown origin, maybe contained diverticulitis? CT guided drainage. although some improvements in hemodynamics, no improvements in vent or encephalopathy. off pathway. 06/03: IR re-ct scan without any evidence of abdominal abscess. blood glucose still not controlled despite high dose algorithm. wbc downtrending. 06/04: wbc continues to downtrend. Cr improving as well. very hypokalemic despite aggressive replacement. blood glucose now < 200, but using high dose insulin drip and levemir. encephalopathy persists. 06/05: clinically improving. weakly following commands this morning. renal function improved. EEG negative for seizures. still too sleepy for safe extubation, but improved from yesterday. 06/06: continues to improve. still weakly following commands. failing SBT- on 20 of PSV with small tidal volumes and very tachypneic. slightly more awake, but still not awake enough for safe extubation. Objective Vital Signs Date Time Temp Pulse Resp B/P (MAP) Pulse Ox O2 Delivery O2 Flow Rate FiO2 06/06/17 10:00 93 06/06/17 09:22 BiPAP/CPAP 40 06/06/17 09:22 95 06/06/17 08:00 100.6 22 168/72 (104) Intake and Output 06/06/17 06/06/17 06/07/17 08:00 16:00 00:00 Intake Total 883.3 ml Output Total 2675 ml Balance -1791.7 ml Result Diagram: 06/06/17 0530 06/06/17 0530 Imaging Last Impressions Liver Ultrasound 05/21/17 0000 Signed Impressions: Service Date/Time: Sunday, May 21, 2017 10:32 - CONCLUSION: 1. Hepatic steatosis. 2. Gallstones 3. Limited evaluation of the right kidney. Santana Lamar MD Chest X-Ray 05/21/17 0000 Signed Impressions: Service Date/Time: Sunday, May 21, 2017 06:17 - CONCLUSION: 1. Limited suboptimal study with motion artifact. 2. No definite acute cardiac pulmonary disease. Austin Orellana MD Head CT [id number]/20/[id number] Signed Impressions: Service Date/Time: Saturday, May 20, 2017 19:55 - CONCLUSION: 1. No acute findings. Retention cyst right maxillary sinus. Jakob Scruggs MD Objective Remarks GENERAL: Patient is 66 yo lying in bed, intubated, sedated. SKIN: Warm and dry. HEAD: Normocephalic. EYES: No scleral icterus. No injection or drainage. NECK: trachea midline. large neck prevents accurate assessment of JVD. CARDIOVASCULAR: tachycardic rate, regular rhythm. RESPIRATORY: intubated, fio2 40%, coarse breath sounds bilaterally, very tachypneic. small tidal volumes PSV 20/8/40% GASTROINTESTINAL: Abdomen morbidly obese, soft, non-tender, nondistended. MUSCULOSKELETAL: No cyanosis, or edema. Neuro: RASS -2/3. CAM +. intermittently weakly follows commands. Procedures None Date of Insertion: May 25, 2017 A/P Assessment and Plan Assessment: 66yF with encephalopathy thought to be secondary to OFFAL [employer] infection vs. toxic/metabolic, hypoxic respiratory failure, resolving sepsis. some improvements in mental status. still too somnolent for safe extubation. Respiratory failure persists. will obtain CXR. could be worsening pleural effusion. will continue forced diuresis because it appears that she is nearly 8 kg up from admission weight. continue daily SBTs while we optimize pulmonary function. will see if PT can get her OOB to stretcher chair. Plan: Neuro: Metabolic Encephalopathy- slight improvements. Discitis Possible OFF[employer] Infection Acute CVA, multifocal areas of ischemia - RASS goal -2. - fentanyl. - amantadine for wakefulness - modafinil for wakefulness. - carotid dopplers - frequent neuro checks - abx per ID. - daily sedation vacations. - aspirin - hold statin given elevation in LFTs. start when able. Resp: Acute hypoxic and hypercarbic respiratory failure - persistent. - vent bundle, hob at 30 degrees, nebs - wean fio2 for spo2 > 90% - forced diuresis, increase to lasix 40mg iv q6h. - daily SBTs. too weak today with tachypniea. CV: Septic Shock - resolved. - off vasopressors - STEVEN negative for vegetations, small PFO. Renal: Acute kidney injury- resolved - continue Chiu - forced diuresis with lasix today, increase. goal net -2L/24h. - daily bmp FEN/GI: Shock liver - persistent Morbid obesity Hypokalemia Volume overload Acute protein calorie malnutrition- moderate - glucerna tube feeds - ICU electrolyte protocol - daily bmp - trend LFTs Heme/ID: Septic Shock - resolved Discitis Possible healthcare associated aspiration pneumonia Strep bacteremia (recent blood cultures negative) - abx per ID - cultures NGTD - if discitis is truly the source and no improvements, could consider disc biopsy in the future. - continues on Rocephin. - all cultures NGTD so far. Endocrine: Severe hyperglycemia Presumed Adrenal Insufficiency - steroid taper - severe hyperglycemia despite high dose insulin drip - continue insulin drip Algorithm #4. - increase Levemir to 70 units SQ q12h (~30% of 24h needs). - slightly improved and lower insulin drip requirements today. Prophylaxis: - pepcid - SCDs - SQH Lines: - 06/01 central line. d/c today. - chiu: keep while active diuresis. Highly complex with ongoing multiple medical problems. Bang Anthony MD Jun 06, 2017 11:08
[2017-06-06] MEDS: FUROSEMIDE 40 MG/4 ML VIAL IV PUSH SCH ×3 (11:28→22:57)
--- NOTE | 2017-06-06 12:24 | RADRPT ---
EXAM DATE/TIME: 06/06/2017 12:08 [facility] COMPARISON: CHEST SINGLE AP, June 04, 2017, 20:41. INDICATIONS : Shortness of breath. MEDICAL HISTORY : Diabetes mellitus type 2. Hypertension. Renal failure, acute. SURGICAL HISTORY : section. ENCOUNTER: Subsequent ACUITY: 2 weeks PAIN SCORE: Non-responsive. LOCATION: Bilateral chest FINDINGS: The support devices remain in place. There is no pneumothorax. There continue to be scattered pulmona ry infiltrates bilaterally which are not significant change compared to the prior examination. The he art size remains diffusely enlarged but stable. The bony structures are stable. CONCLUSION: No significant interval changes. Yomi Ashby MD on June 06, 2017 at 12:23 Board Certified Radiologist. This report was verified electronically.
[2017-06-06] MEDS: CARVEDILOL 6.25 MG TAB PO SCH ×2 (13:12→20:54)
--- NOTE | 2017-06-06 13:14 | HHI.IDPN ---
Subjective Subjective Remarks is a 66-year-old female presents confused and lethargic. Patient reportedly was recently seen today at an urgent care and received an injection for low back pain. Patient here denies headaches, chest pain or shortness of breath, abdominal pain or extremity pain. Patient does complain of low back pain. at bedside states that they're visiting from out of state for the past 3 months and will be returning back to their home state in a week. reports patient has chronic low back pain but this exacerbated over the last 24 hours starting yesterday morning. Patient was seen earlier today by her chiropractor for an adjustment and then was referred to an urgent care. Patient reportedly had a fever at the chiropractor's office and felt cold and clammy. At the urgent care patient was evaluated and reportedly had an injection of a nonsteroidal medication as she is diabetic and he did not want to give her a steroid injection. Patient went home about 1:00 PM she was drowsy so sat down in a chair and fell asleep according to the . He tried to awaken her at 4:30 and noticed that she was confusional and lethargic. He attempted to continue to awaken her over the next 2-3 hours and because she was not improving decided finally to call EMS to transport her to the emergency room. Patient and spouse denied any recent injury or fall. Patient was ambulatory this morning but this evening has difficulty elevating her lower extremities as well as she was generally extremely weak. ID following for Strep bacteremia, probable endocarditis, Septic emboli cerebral , discitis based on 1st imaging. bilateral LE cellulitis. Overall slightly improved since last seen by me. Opens eyes spontaneously. Moves all extremities. Not responding to commands for me. On CPAP trials last 2 hours and doing ok. UOP improved but still dark. Low grade temps. off pressors No rash No diarrhea Antibiotics CFTX Lines Line sites with no e.o infection Past Medical History Diabetes Dyslipidemia Hypertension Chronic back pain sees a chiropracter. Chronic lower extremity swelling. Never had an ECHO before per pt and spouse. ? Sleep apnea. Allergies: Coded Allergies: No Known Allergies (Unverified , 05/20/17) Objective . Vital Signs Date Time Temp Pulse Resp B/P (MAP) Pulse Ox O2 Delivery O2 Flow Rate FiO2 06/06/17 12:13 98 40 06/06/17 10:00 93 06/06/17 09:22 BiPAP/CPAP 40 06/06/17 09:22 95 40 06/06/17 09:12 40 06/06/17 08:00 100.6 101 22 168/72 (104) 97 06/06/17 08:00 101 06/06/17 08:00 40 06/06/17 07:46 94 40 06/06/17 06:00 98 06/06/17 04:21 94 40 06/06/17 04:00 40 06/06/17 04:00 99.6 97 25 161/68 (99) 96 06/06/17 04:00 97 06/06/17 02:00 97 06/06/17 00:00 40 06/06/17 00:00 92 06/06/17 00:00 99.7 92 28 178/76 (110) 96 06/05/17 23:10 98 40 06/05/17 22:00 105 06/05/17 20:00 40 06/05/17 20:00 100.5 104 24 175/74 (107) 94 06/05/17 20:00 104 06/05/17 19:38 95 40 06/05/17 18:00 99 06/05/17 16:39 40 06/05/17 16:00 40 06/05/17 16:00 99 06/05/17 16:00 99.4 99 26 173/73 (106) 95 06/05/17 15:45 40 06/05/17 15:35 95 40 06/05/17 15:30 40 06/05/17 14:00 96 . Laboratory Tests Test 06/05/17 05:30 06/06/17 05:30 White Blood Count 7.1 TH/MM3 9.4 TH/MM3 Red Blood Count 3.25 MIL/MM3 3.39 MIL/MM3 Hemoglobin 9.6 GM/DL 10.0 GM/DL Hematocrit 29.2 % 30.1 % Mean Corpuscular Volume 90.0 FL 88.6 FL Mean Corpuscular Hemoglobin 29.5 PG 29.6 PG Mean Corpuscular Hemoglobin Concent 32.8 % 33.4 % Red Cell Distribution Width 16.6 % 16.5 % Platelet Count 181 TH/MM3 161 TH/MM3 Mean Platelet Volume 10.0 FL 9.7 FL Laboratory Tests Test 06/05/17 05:30 06/05/17 22:05 06/06/17 05:30 06/06/17 11:42 Blood Urea Nitrogen 20 MG/DL 14 MG/DL Creatinine 0.88 MG/DL 0.86 MG/DL Random Glucose 171 MG/DL 205 MG/DL Total Protein 5.9 GM/DL Calcium Level 7.4 MG/DL 8.0 MG/DL Phosphorus Level 1.6 MG/DL 1.5 MG/DL 3.0 MG/DL Sodium Level 143 MEQ/L 147 MEQ/L Potassium Level 3.4 MEQ/L 3.1 MEQ/L 3.5 MEQ/L 3.4 MEQ/L Chloride Level 110 MEQ/L 112 MEQ/L Carbon Dioxide Level 22.1 MEQ/L 24.6 MEQ/L Anion Gap 11 MEQ/L 10 MEQ/L Estimat Glomerular Filtration Rate 64 ML/MIN 66 ML/MIN Protein Corrected Calcium 8.1 MG/DL Imaging Last Impressions Lumbar Spine MRI 06/03/17 0000 Signed Impressions: Service Date/Time: Saturday, June 03, 2017 15:42 - CONCLUSION: The MRI findings after contrast administration are not convincing for presence of active infection within the L3/L4 disc, adjacent vertebral bodies or epidural space/adjacent soft tissues. Santana Eric MD Pelvis CT 06/02/17 0000 Signed Impressions: Service Date/Time: Friday, June 02, 2017 17:29 - CONCLUSION: No evidence of intra-abdominal abscess collection. Nikita Damon MD Chest X-Ray 06/02/17 0000 Signed Impressions: Service Date/Time: Friday, June 02, 2017 15:14 - CONCLUSION: 1. Cardiomegaly. 2. Perihilar infiltrates consistent with mild to moderate pulmonary vascular congestion versus pneumonia. 3. Small right pleural effusion. 4. Multiple tubes and lines are stable. Nikita Damon MD Abdomen X-Ray 06/02/17 0000 Signed Impressions: Service Date/Time: Friday, June 02, 2017 15:20 - CONCLUSION: OG tube in the stomach. Mike Davis MD FACR Chest CT 06/01/17 0000 Signed Impressions: Service Date/Time: May 18:49 - CONCLUSION: 1. Dense consolidation in both posterior lower lobes right greater than left with air bronchograms. This could represent pneumonia. 2. Small bilateral pleural effusions. 3. Mild cardiomegaly. Austin Orellana MD Brain MRI 06/01/17 Signed Impressions: Service Date/Time: May 19:15 - CONCLUSION: 1. Multiple new small scattered punctate areas of restricted diffusion consistent with small areas of infarction. This could be secondary to emboli. 2. No acute hemorrhage or mass effect. 3. Acute sinusitis in the ethmoidal air cells and sphenoid sinus with air fluid levels. Austin Orellana MD Abdomen/Pelvis CT 06/01/17 Signed Impressions: Service Date/Time: May 18:49 - CONCLUSION: 1. Suboptimal opacification of the bowel with the distal small bowel unopacified. There is a questionable abnormal gas collection in the anterior lower pelvis. An abscess is not excluded. A repeat study is recommended after additional oral contrast is given. 2. Consolidation in both posterior lung bases with small pleural effusions. Austin Orellana MD Renal Ultrasound 05/31/17 0000 Signed Impressions: Service Date/Time: Wednesday, May 31, 2017 20:47 - CONCLUSION: 1. Suboptimal exam with visualization. 2. No evidence of hydronephrosis. 3. Cyst extending off right kidney. Austin Orellana MD Lower Extremity Ultrasound 05/29/17 0000 Signed Impressions: Service Date/Time: Monday, May 29, 2017 13:10 - CONCLUSION: 1. No evidence of deep venous thrombosis. Monty Gross MD Tumor Localization 05/26/17 0000 Signed Impressions: Service Date/Time: Friday, May 26, 2017 13:36 - CONCLUSION: No abnormal uptake identified to suggest infection. Nikita Damon MD Liver Ultrasound 05/21/17 0000 Signed Impressions: Service Date/Time: Sunday, May 21, 2017 10:32 - CONCLUSION: 1. Hepatic steatosis. 2. Gallstones 3. Limited evaluation of the right kidney. Santana Lamar MD Head CT [id number] Signed Impressions: Service Date/Time: Saturday, May 20, 2017 19:55 - CONCLUSION: 1. No acute findings. Retention cyst right maxillary sinus. Jakob Scruggs MD Physical Exam GENERAL: Obese patient. sedated int'd on mech vent SKIN: No rashes. Ecchymosis noted. No Janeway lesion no splinter hemorrhages. HEAD: Atraumatic. Normocephalic. EYES: Pupils equal round and reactive. Extraocular motions intact. No scleral icterus. No injection or drainage. ENT: Nose without bleeding, purulent drainage or septal hematoma. Throat without erythema, tonsillar hypertrophy or exudate. Uvula midline. Airway patent. NECK: Large neck, intubated. Supple CARDIOVASCULAR: Regular rate and rhythm without murmurs. well perused periphery with good refill RESPIRATORY: Breath sounds equal bilaterally.Clear to auscultation anteriorly GASTROINTESTINAL: Abdomen soft, non-tender, nondistended. Obese. No hepatosplenomegaly Incontinent of dark liquid stool chiu in place with cloth hand appearing urine in chiu bag (yulissa) MUSCULOSKELETAL: Extremities without clubbing, cyanosis. Improved, soft edema, generalized anasarca, 3- 4+ NEUROLOGICAL: Sedated, on versed, moves extremities on painful stimuli both upper and lower extremities. Psych unable to assess IV line sites with no e/o infection. Assessment & Plan Remarks Septic Shock with MODS HCAP/plus aspiration pneumonia. nl resp kleber on sputum clx Meningitis/discitis(likely partially treated or parameningeal focus related CSF changes) New onset seizures likely secondary to [employer] infection process. Strep Grp B bacteremia sources: ? GI, skin as source. STEVEN neg, but done 2 weeks after abx were started ? embolic strokes Bilateral R> L LE cellulitis: improved. Acute renal failure UO improving. GFR > 40 Acute resp failure: pulm edema,aspiration PNA, sleep apnea. MRI of T spine negative Abnormal LFTs: sepsis related, ? rhabdo elevated CK. HTN DM2 uncontrolled. Obesity BMI 49.7 kg/m2 Diarrhea Cdiff negative. Recs: Continue Ceftriaxone IV q12 for possible meningitis/epidural abscess. d/w GI re: EGD and Colonoscopy due to Strep organism. Deferred to later date. Follow clinically. d/w RN. Nan Portillo MD Jun 06, 2017 13:14
[2017-06-06] MEDS: POTASSIUM CHLOR 40 MEQ PREMIX 100 ML IV PRN (16:00)
--- NOTE | 2017-06-06 19:01 | HHI.PR ---
Subjective Remarks 66 YOObese WF with Hypercapnoea, Cellulitis, Bactremia Encephalopathic Intubated Off sedation Tolerated CPAP for 6 hr Follows simple commands Objective Vital Signs Vital Signs Date Time Temp Pulse Resp B/P (MAP) Pulse Ox O2 Delivery O2 Flow Rate FiO2 06/06/17 18:00 89 06/06/17 16:00 40 06/06/17 16:00 98.6 90 25 147/65 (92) 95 06/06/17 16:00 89 06/06/17 15:46 95 40 06/06/17 15:30 40 06/06/17 14:00 99 06/06/17 12:13 98 40 06/06/17 12:00 99.0 99 27 157/68 (97) 91 06/06/17 12:00 100 06/06/17 12:00 40 06/06/17 10:00 93 06/06/17 09:22 BiPAP/CPAP 40 06/06/17 09:22 95 40 06/06/17 09:12 40 06/06/17 08:00 100.6 101 22 168/72 (104) 97 06/06/17 08:00 101 06/06/17 08:00 40 06/06/17 07:46 94 40 06/06/17 06:00 98 06/06/17 04:21 94 40 06/06/17 04:00 40 06/06/17 04:00 99.6 97 25 161/68 (99) 96 06/06/17 04:00 97 06/06/17 02:00 97 06/06/17 00:00 40 06/06/17 00:00 92 06/06/17 00:00 99.7 92 28 178/76 (110) 96 06/05/17 23:10 98 40 06/05/17 22:00 105 06/05/17 20:00 40 06/05/17 20:00 100.5 104 24 175/74 (107) 94 06/05/17 20:00 104 06/05/17 19:38 95 40 I/O 06/05/17 06/05/17 06/05/17 06/06/17 06/06/17 06/06/17 06:59 14:59 22:59 06:59 14:59 22:59 Intake Total 365 ml 207.5 ml 512 ml 883.3 ml 1235.5 ml Output Total 650 ml 400 ml 2675 ml 3200 ml Balance -285 ml 207.5 ml 112 ml -1791.7 ml -1964.5 ml IV Total 350 ml 207.5 ml 392 ml 544.3 ml 307.5 ml Tube Feeding 60 ml 339 ml 468 ml Tube Irrigant 15 ml Other 60 ml 460 ml Output Urine Total 450 ml 400 ml 2675 ml 3000 ml Stool Total 200 ml 200 ml Result Diagram: 06/06/17 0530 06/06/17 1142 Objective Remarks GENERAL: Morbidly obese WF, mild sob SKIN: Warm and dry. HEAD: Normocephalic. EYES: No scleral icterus. No injection or drainage. NECK: Supple, trachea midline. No JVD or lymphadenopathy. CARDIOVASCULAR: Regular rate and rhythm without murmurs, gallops, or rubs. RESPIRATORY: Breath sounds equal bilaterally. No accessory muscle use. GASTROINTESTINAL: Abdomen soft, non-tender, nondistended. MUSCULOSKELETAL: No cyanosis, or edema. has swelling and redness of legs BACK: Nontender without obvious deformity. No CVA tenderness. A/P Assessment and Plan Hypercapnoic Resp Insuff CHE or Obesity Hypoventilation synd Cellulitis legs Bactremia back pain Sepsis Encephalopathy PLAN: Vent Support Aerosol nebs Wean 02 to keep sat 88-92% Abx per ID Cont DilantinGoing for intra abd drain Dialy CPAP trial. Dima Bang MD Jun 06, 2017 19:01
[2017-06-07] VITALS (24 sets, daily range): BP systolic 104–150; BP diastolic 51–65; PULSE 87–95; RESP 22–31; TEMP 98.8–100.4; O2SAT 91–99
[2017-06-07] MEDS: INSULIN REGULAR (IV INFUSION) 100 UNITS in SODIUM CHLORIDE 0.9% INJ 99 ML IV PRN ×3 (03:06→23:28)
[2017-06-07] MEDS: CHLORHEXIDINE GLUCONATE 2 % 1 PACK (2 CLOTHS) TOP SCH (03:51)
[2017-06-07] MEDS: cefTRIAXone INJ 2,000 MG in SODIUM CHLORIDE 0.9% INJ 100 ML IV SCH ×2 (04:26→17:55)
[2017-06-07] MEDS: FUROSEMIDE 40 MG/4 ML VIAL IV PUSH SCH ×4 (04:26→23:31)
[2017-06-07 05:35] LABS: HEMATOCRIT 30.6 % (35.0-46.0); MEAN CELL VOLUME 89.4 FL (80.0-100.0); MEAN CORPUSCULAR HEMOGLOBIN 28.6 PG (27.0-34.0); PLATELET COUNT 174 TH/MM3 (150-450); RED BLOOD COUNT 3.42 MIL/MM3 (4.00-5.30); RED CELL DISTRIBUTION WIDTH 16.7 % (11.6-17.2); REVIEW FLAG FINAL; WHITE BLOOD COUNT 12.2 TH/MM3 (4.0-11.0)
[2017-06-07 06:00] LABS: BICARBONATE 29.8 MEQ/L (21.0-32.0); POTASSIUM 3.1 MEQ/L (3.5-5.1)
[2017-06-07] MEDS: FREE WATER G-TUBE SCH ×3 (06:00→17:55)
[2017-06-07] MEDS: HEPARIN SODIUM - SQ 10,000 UNITS/ML VIAL SQ SCH ×3 (06:42→21:30)
[2017-06-07] MEDS: AMANTADINE HCL SOLN 100 MG/10 ML UDC PO SCH ×2 (06:42→11:09)
[2017-06-07] MEDS: PHENYTOIN INJ 100 MG/2 ML VIAL IV SCH ×3 (06:43→21:30)
[2017-06-07] MEDS: RESP: ALBUTEROL 2.5 MG/IPRATROPIUM 0.5 MG NEB (PRN) NEB ×2 (07:41→20:00)
[2017-06-07] MEDS: INSULIN DETEMIR 100 UNITS/ML VIAL SQ SCH ×2 (09:00→21:31)
[2017-06-07] MEDS: SODIUM CHLORIDE 0.9% FLUSH 10 ML FLUSH IV FLUSH SCH ×2 (09:00→21:06)
--- NOTE | 2017-06-07 09:18 | HHI.PR ---
Review/Management Diagnosis - Encephalopathy. Possible etiological causes are seizures/ infectious/ metabolic - Multiple ischemic strokes, b/l hemispheres - Respiratory failure. - Bacteremia, group B strep. - JAMES. - Diabetes mellitus. Plan - Neuro checks q. one hourly. - Phenytoin 100 milligrams q. 8. - Keppra 750mg Q12h - Aspirin 81mg - Follow up EEG - Seizure precautions. - Obtain Dilantin level next a.m. - Hold narcotic medications. - Continue supportive medical therapy. - GI prophylaxis. - DVT prophylaxis, subcutaneous heparin - Discussed the case at length with at bes side and RN. - Discussed case with Dr. Dillon, electric organ checker. Diagnosis/Plan: Subjective Subjective Comments Off sedation for 36 hours Intubated Awake, tracks, moves extremities at bed side Dilantin level is therapeutic [10] Active Medications Current Medications Medications (Trade) Dose Ordered Sig/Erasmo Route Start Time Stop Time Status Last Admin (Heparin Inj) 5,000 units Q8H SQ 05/20/17 22:00 Future hold 06/07/17 06:42 Miscellaneous Information 1 [id number] XX 05/20/17 22:30 (Chlorhexidine 2% Cloth) Taper DAILY@04 TOP 05/21/17 04:00 05/17/18 03:59 06/07/17 03:51 (Chlorhexidine 2% Cloth) 3 pack UNSCH PRN TOP 05/20/17 22:30 (Tylenol) 650 mg Q6H PRN PO 05/21/17 01:30 (Duoneb Neb) 1 ampule Q2HR NEB PRN NEB 05/21/17 05:45 06/07/17 07:41 (Glucagon Inj) 1 mg UNSCH PRN OTHER 05/22/17 07:30 (NS Flush) 2 ml UNSCH PRN IV FLUSH 05/24/17 12:15 06/04/17 20:38 (NS Flush) 2 ml BID IV FLUSH 05/24/17 21:00 06/06/17 20:54 (Narcan Inj) 0.4 mg UNSCH PRN IV PUSH 05/24/17 12:15 (May-Colace) 1 tab BID PO 05/24/17 21:00 06/06/17 20:53 (Milk Of Magnesia Liq) 30 ml Q12H PRN PO 05/24/17 12:15 05/24/17 13:45 (Senokot) 17.2 mg Q12H PRN PO 05/24/17 12:15 (Dulcolax Supp) 10 mg DAILY PRN RECTAL 05/24/17 12:15 (Lactulose Liq) 30 ml DAILY PRN PO 05/24/17 12:15 Ceftriaxone Sodium 2000 mg/ Sodium Chloride 100 ml @ 200 mls/hr Q12H IV 05/25/17 17:00 06/07/17 04:26 (Dilantin Inj) 100 mg Q8HR IV 05/26/17 22:00 06/07/17 06:43 (Mycostatin Powder) 1 applic Q12HR TOPICAL 05/30/17 10:00 06/06/17 20:53 (Tylenol Supp) 650 mg Q6H PRN RECTAL 05/30/17 13:15 05/30/17 14:06 (Ofirmev 1000 Mg/ 100 ml Inj) 1,000 mg Q6H PRN IV 05/31/17 16:30 05/31/17 16:51 Insulin Human Regular 100 units/ Sodium Chloride 100 ml @ 3 mls/hr TITRATE PRN IV 06/01/17 11:45 06/07/17 03:06 (D50w (Vial) Inj) 50 ml UNSCH PRN IV PUSH 06/01/17 11:45 Levetriacetam 750 mg/Sodium Chloride 107.5 ml @ 430 mls/hr Q12HR IV 06/01/17 21:00 06/06/17 20:54 (SoluCORTEF INJ) 25 mg Taper DAILY IV PUSH 06/03/17 14:00 06/07/17 13:59 06/06/17 08:28 (Mag-Ox) 800 mg UNSCH PRN PO 06/03/17 11:00 Magnesium Sulfate 4 gm/Sodium Chloride 100 ml @ 50 mls/hr UNSCH PRN IV 06/03/17 11:00 Magnesium Sulfate 2 gm/Sodium Chloride 100 ml @ 50 mls/hr UNSCH PRN IV 06/03/17 11:00 06/05/17 21:27 Potassium Chloride 100 ml @ 50 mls/hr Q2H PRN IV 06/03/17 11:00 Potassium Chloride 100 ml @ 50 mls/hr Q2H PRN IV 06/03/17 11:00 Potassium Chloride 100 ml @ 50 mls/hr Q2H PRN IV 06/03/17 11:00 06/04/17 06:36 Potassium Chloride 100 ml @ 25 mls/hr UNSCH PRN IV 06/03/17 11:00 06/06/17 16:00 (K-Phos) 2,000 mg Q4H PRN PO 06/03/17 11:00 (K-Phos) 2,000 mg UNSCH PRN PO/TUBE 06/03/17 11:00 Potassium Phosphate 30 mmol/ Sodium Chloride 260 ml @ 42 mls/hr UNSCH PRN IV 06/03/17 11:00 06/05/17 23:16 Sodium Phosphate 30 mmol/Sodium Chloride 250 ml @ 42 mls/hr UNSCH PRN IV 06/03/17 11:00 06/05/17 11:06 (Aspirin) 325 mg DAILY PO 06/03/17 11:00 06/06/17 08:37 (Symmetrel Liq) 200 mg BID@07,12 PO 06/03/17 12:00 06/07/17 06:42 Fentanyl Citrate 250 ml @ 5 mls/hr TITRATE PRN IV 06/04/17 10:00 06/04/17 11:22 (Pepcid Inj) 20 mg Q12HR IV PUSH 06/05/17 21:00 06/06/17 20:54 (Provigil) 200 mg DAILY PO 06/06/17 09:00 06/06/17 08:31 (Trandate Inj) 10 mg Q4H PRN IV PUSH 06/05/17 23:00 06/06/17 16:51 (Apresoline Inj) 20 mg Q4H PRN IV PUSH 06/05/17 23:00 (Levemir Inj) 70 units Q12HR SQ 06/06/17 21:00 06/06/17 20:53 (Lasix Inj) 40 mg Q6H IV PUSH 06/06/17 11:00 06/07/17 04:26 (Free Water) VOLUME: 300 ML Q6HR G-TUBE 06/06/17 11:00 06/07/17 06:00 (Coreg) 6.25 mg Q12HR PO 06/06/17 11:30 06/06/17 20:54 Allergies Allergies Coded Allergies No Known Allergies (Hptbrfvodi07/21/17) Review of Systems All other ROS: ROS reviewed as documented in chart Exam I&O / VS Vital Signs Date Time Temp Pulse Resp B/P (MAP) Pulse Ox O2 Delivery O2 Flow Rate FiO2 06/07/17 07:34 92 40 06/07/17 06:00 95 06/07/17 04:00 100.1 91 23 150/64 (92) 94 06/07/17 04:00 40 06/07/17 04:00 91 06/07/17 03:52 93 40 06/07/17 02:00 91 06/07/17 00:39 97 40 06/07/17 00:00 40 06/07/17 00:00 98.8 87 25 140/63 (88) 95 06/07/17 00:00 87 06/06/17 22:00 91 06/06/17 20:37 93 40 06/06/17 20:00 100.8 92 26 150/66 (94) 96 06/06/17 20:00 92 06/06/17 20:00 40 06/06/17 18:00 89 06/06/17 16:00 40 06/06/17 16:00 98.6 90 25 147/65 (92) 95 06/06/17 16:00 89 06/06/17 15:46 95 40 06/06/17 15:30 40 06/06/17 14:00 99 06/06/17 12:13 98 40 06/06/17 12:00 99.0 99 27 157/68 (97) 91 06/06/17 12:00 100 06/06/17 12:00 40 06/06/17 10:00 93 06/06/17 09:22 BiPAP/CPAP 40 06/06/17 09:22 95 40 Exam Comments GENERAL: Morbidly obese, lethargic. HEENT: Atraumatic, normocephalic. NECK: Supple. No signs of meningeal irritation. CARDIOVASCULAR: Regular rate and rhythm. RESPIRATORY: Clear to auscultation. No wheezes. GASTROINTESTINAL: Soft, nontender. MUSCULOSKELETAL: No cyanosis, edema or clubbing. NEUROLOGIC EXAMINATION: Intubated, off sedation, Pupils 3 mm bilaterally equally reacting to light. No facial asymmetry. Reflexes 1+ bilateral and symmetrical. B/l Babinski reflex. Awake, opens eyes to commands, does not track , moves extremities weakly. Objective Radiology Results Last 72 hours Impressions Chest X-Ray 06/06/17 0000 Signed Impressions: Service Date/Time: Tuesday, June 06, 2017 12:08 - CONCLUSION: No significant interval changes. Yomi Ashby MD Micro and Labs Laboratory Tests Test 06/06/17 11:42 06/07/17 04:15 Potassium Level 3.4 3.1 White Blood Count 12.2 Red Blood Count 3.42 Hemoglobin 9.8 Hematocrit 30.6 Mean Corpuscular Volume 89.4 Mean Corpuscular Hemoglobin 28.6 Mean Corpuscular Hemoglobin Concent 32.0 Red Cell Distribution Width 16.7 Platelet Count 174 Mean Platelet Volume 9.9 Blood Urea Nitrogen 12 Creatinine 0.84 Random Glucose 198 Calcium Level 7.9 Phosphorus Level 1.8 Sodium Level 148 Chloride Level 109 Carbon Dioxide Level 29.8 Anion Gap 9 Estimat Glomerular Filtration Rate 68 Phenytoin (Dilantin) Level 10.0 Date/Time Source Procedure Growth Status 06/01/17 12:08 Blood Peripheral Blood Fungal Culture Pending Received 06/01/17 12:08 Blood Peripheral Blood Fungal Culture Pending Received 06/01/17 14:35 Cerebral Spinal Fluid Lumbar Puncture Fungal Smear - Final NO FUNGAL ELEMENTS SEEN. Resulted 06/01/17 14:35 Cerebral Spinal Fluid Lumbar Puncture Fungal Culture Pending Resulted 06/01/17 03:50 Sputum Endotracheal Gram Stain - Final Complete 06/01/17 03:50 Sputum Endotracheal Sputum Culture - Final MODERATE GROWTH NORMAL RESPIRATORY BRAYAN Complete 05/30/17 13:30 Urine Catheterized Urine Urine Culture - Final NO GROWTH IN 48 HOURS. Complete Juan Pablo Salas MD Jun 07, 2017 09:18
[2017-06-07] MEDS: NYSTATIN 100,000 U/GM PWD 15 GM BTL TOPICAL SCH ×2 (09:26→21:06)
[2017-06-07] MEDS: levETIRAcetam INJ 750 MG in SODIUM CHLORIDE 0.9% INJ 100 ML IV SCH ×2 (09:26→21:05)
[2017-06-07] MEDS: MODAFINIL 200 MG TAB PO SCH (09:27)
[2017-06-07] MEDS: DOCUSATE SODIUM 50 MG/SENNA 8.6 MG TAB PO SCH ×2 (09:27→21:06)
[2017-06-07] MEDS: ASPIRIN 325 MG TAB PO SCH (09:27)
[2017-06-07] MEDS: FAMOTIDINE 20 MG/2 ML VIAL IV PUSH SCH ×2 (09:28→21:06)
[2017-06-07] MEDS: HYDROCORTISONE SOD SUCCINATE 100 MG VIAL IV PUSH SCH (09:28)
[2017-06-07] MEDS: CARVEDILOL 6.25 MG TAB PO SCH ×2 (09:28→21:06)
[2017-06-07] MEDS: POTASSIUM PHOSPHATE INJ 30 MMOL in SODIUM CHLOR 0.9% 250 ML INJ 250 ML IV PRN (11:08)
--- NOTE | 2017-06-07 12:59 | HHI.IDPN ---
Subjective Subjective Remarks is a 66-year-old female presents confused and lethargic. Patient reportedly was recently seen today at an urgent care and received an injection for low back pain. Patient here denies headaches, chest pain or shortness of breath, abdominal pain or extremity pain. Patient does complain of low back pain. at bedside states that they're visiting from out of state for the past 3 months and will be returning back to their home state in a week. reports patient has chronic low back pain but this exacerbated over the last 24 hours starting yesterday morning. Patient was seen earlier today by her chiropractor for an adjustment and then was referred to an urgent care. Patient reportedly had a fever at the chiropractor's office and felt cold and clammy. At the urgent care patient was evaluated and reportedly had an injection of a nonsteroidal medication as she is diabetic and he did not want to give her a steroid injection. Patient went home about 1:00 PM she was drowsy so sat down in a chair and fell asleep according to the . He tried to awaken her at 4:30 and noticed that she was confusional and lethargic. He attempted to continue to awaken her over the next 2-3 hours and because she was not improving decided finally to call EMS to transport her to the emergency room. Patient and spouse denied any recent injury or fall. Patient was ambulatory this morning but this evening has difficulty elevating her lower extremities as well as she was generally extremely weak. ID following for Strep bacteremia, probable endocarditis, Septic emboli cerebral , discitis based on 1st imaging. bilateral LE cellulitis. Overall slightly improved since last seen by me. Opens eyes spontaneously. Moves all extremities spontaneously. Not responding to commands for me. On CPAP trials UOP improved 350 cc seen in bag at time of visit. Low grade temps. off pressors No rash No diarrhea Antibiotics CFTX Lines Line sites with no e.o infection Past Medical History Diabetes Dyslipidemia Hypertension Chronic back pain sees a chiropracter. Chronic lower extremity swelling. Never had an ECHO before per pt and spouse. ? Sleep apnea. Allergies: Coded Allergies: No Known Allergies (Unverified , 05/20/17) Objective . Vital Signs Date Time Temp Pulse Resp B/P (MAP) Pulse Ox O2 Delivery O2 Flow Rate FiO2 06/07/17 12:00 87 06/07/17 12:00 35 06/07/17 12:00 98.9 87 27 116/56 (76) 93 06/07/17 11:00 87 30 104/51 (68) 93 06/07/17 11:00 87 06/07/17 10:00 95 06/07/17 10:00 93 28 144/62 (89) 99 06/07/17 09:00 95 31 127/57 (80) 94 06/07/17 09:00 93 06/07/17 08:00 100.4 94 27 140/60 (86) 91 06/07/17 08:00 35 06/07/17 08:00 95 06/07/17 07:34 92 40 06/07/17 07:00 92 26 137/60 (85) 93 06/07/17 07:00 92 06/07/17 06:00 95 06/07/17 04:00 100.1 91 23 150/64 (92) 94 06/07/17 04:00 40 06/07/17 04:00 91 06/07/17 03:52 93 40 06/07/17 02:00 91 06/07/17 00:39 97 40 06/07/17 00:00 40 06/07/17 00:00 98.8 87 25 140/63 (88) 95 06/07/17 00:00 87 06/06/17 22:00 91 06/06/17 20:37 93 40 06/06/17 20:00 100.8 92 26 150/66 (94) 96 06/06/17 20:00 92 06/06/17 20:00 40 06/06/17 18:00 89 06/06/17 16:00 40 06/06/17 16:00 98.6 90 25 147/65 (92) 95 06/06/17 16:00 89 06/06/17 15:46 95 40 06/06/17 15:30 40 06/06/17 14:00 99 06/07/17 06/07/17 06/08/17 15:00 23:00 07:00 Intake Total 100 ml Balance 100 ml IV Total 100 ml . Laboratory Tests Test 06/06/17 05:30 06/07/17 04:15 White Blood Count 9.4 TH/MM3 12.2 TH/MM3 Red Blood Count 3.39 MIL/MM3 3.42 MIL/MM3 Hemoglobin 10.0 GM/DL 9.8 GM/DL Hematocrit 30.1 % 30.6 % Mean Corpuscular Volume 88.6 FL 89.4 FL Mean Corpuscular Hemoglobin 29.6 PG 28.6 PG Mean Corpuscular Hemoglobin Concent 33.4 % 32.0 % Red Cell Distribution Width 16.5 % 16.7 % Platelet Count 161 TH/MM3 174 TH/MM3 Mean Platelet Volume 9.7 FL 9.9 FL Laboratory Tests Test 06/05/17 22:05 06/06/17 05:30 06/06/17 11:42 06/07/17 04:15 Potassium Level 3.1 MEQ/L 3.5 MEQ/L 3.4 MEQ/L 3.1 MEQ/L Phosphorus Level 1.5 MG/DL 3.0 MG/DL 1.8 MG/DL Blood Urea Nitrogen 14 MG/DL 12 MG/DL Creatinine 0.86 MG/DL 0.84 MG/DL Random Glucose 205 MG/DL 198 MG/DL Calcium Level 8.0 MG/DL 7.9 MG/DL Sodium Level 147 MEQ/L 148 MEQ/L Chloride Level 112 MEQ/L 109 MEQ/L Carbon Dioxide Level 24.6 MEQ/L 29.8 MEQ/L Anion Gap 10 MEQ/L 9 MEQ/L Estimat Glomerular Filtration Rate 66 ML/MIN 68 ML/MIN Imaging Last Impressions Lumbar Spine MRI 06/03/17 Signed Impressions: Service Date/Time: Saturday, June 03, 2017 15:42 - CONCLUSION: The MRI findings after contrast administration are not convincing for presence of active infection within the L3/L4 disc, adjacent vertebral bodies or epidural space/adjacent soft tissues. Santana Eric MD Pelvis CT 06/02/17 0000 Signed Impressions: Service Date/Time: Friday, June 02, 2017 17:29 - CONCLUSION: No evidence of intra-abdominal abscess collection. Nikita Damon MD Chest X-Ray 06/02/17 0000 Signed Impressions: Service Date/Time: Friday, June 02, 2017 15:14 - CONCLUSION: 1. Cardiomegaly. 2. Perihilar infiltrates consistent with mild to moderate pulmonary vascular congestion versus pneumonia. 3. Small right pleural effusion. 4. Multiple tubes and lines are stable. Nikita Damon MD Abdomen X-Ray 06/02/17 Signed Impressions: Service Date/Time: Friday, June 02, 2017 15:20 - CONCLUSION: OG tube in the stomach. Mike Davis MD FACR Chest CT 06/01/17 Signed Impressions: Service Date/Time: May 18:49 - CONCLUSION: 1. Dense consolidation in both posterior lower lobes right greater than left with air bronchograms. This could represent pneumonia. 2. Small bilateral pleural effusions. 3. Mild cardiomegaly. Austin Orellana MD Brain MRI 06/01/17 Signed Impressions: Service Date/Time: May 19:15 - CONCLUSION: 1. Multiple new small scattered punctate areas of restricted diffusion consistent with small areas of infarction. This could be secondary to emboli. 2. No acute hemorrhage or mass effect. 3. Acute sinusitis in the ethmoidal air cells and sphenoid sinus with air fluid levels. Austin Orellana MD Abdomen/Pelvis CT 06/01/17 Signed Impressions: Service Date/Time: May 18:49 - CONCLUSION: 1. Suboptimal opacification of the bowel with the distal small bowel unopacified. There is a questionable abnormal gas collection in the anterior lower pelvis. An abscess is not excluded. A repeat study is recommended after additional oral contrast is given. 2. Consolidation in both posterior lung bases with small pleural effusions. Austin Orellana MD Renal Ultrasound 05/31/17 Signed Impressions: Service Date/Time: Wednesday, May 31, 2017 20:47 - CONCLUSION: 1. Suboptimal exam with visualization. 2. No evidence of hydronephrosis. 3. Cyst extending off right kidney. Austin Orellana MD Lower Extremity Ultrasound 05/29/17 0000 Signed Impressions: Service Date/Time: Monday, May 29, 2017 13:10 - CONCLUSION: 1. No evidence of deep venous thrombosis. Monty Gross MD Tumor Localization 05/26/17 0000 Signed Impressions: Service Date/Time: Friday, May 26, 2017 13:36 - CONCLUSION: No abnormal uptake identified to suggest infection. iNkita Damon MD Liver Ultrasound 05/21/17 0000 Signed Impressions: Service Date/Time: Sunday, May 21, 2017 10:32 - CONCLUSION: 1. Hepatic steatosis. 2. Gallstones 3. Limited evaluation of the right kidney. Santana Lamar MD Head CT [id number]/20/[id number] Signed Impressions: Service Date/Time: Saturday, May 20, 2017 19:55 - CONCLUSION: 1. No acute findings. Retention cyst right maxillary sinus. Jakob Scruggs MD Physical Exam GENERAL: Obese patient. sedated int'd on mech vent SKIN: No rashes. Ecchymosis noted. No Janeway lesion no splinter hemorrhages. HEAD: Atraumatic. Normocephalic. EYES: Pupils equal round and reactive. Extraocular motions intact. No scleral icterus. No injection or drainage. ENT: Nose without bleeding, purulent drainage or septal hematoma. Throat without erythema, tonsillar hypertrophy or exudate. Uvula midline. Airway patent. NECK: Large neck, intubated. Supple CARDIOVASCULAR: Regular rate and rhythm without murmurs. well perused periphery with good refill RESPIRATORY: Breath sounds equal bilaterally.Clear to auscultation anteriorly GASTROINTESTINAL: Abdomen soft, non-tender, nondistended. Obese. No hepatosplenomegaly Incontinent of dark liquid stool chiu in place with wire lather appearing urine in chiu bag (yulissa) MUSCULOSKELETAL: Extremities without clubbing, cyanosis. Improved, soft edema, generalized anasarca, 3- 4+ NEUROLOGICAL: Sedated, on versed, moves extremities on painful stimuli both upper and lower extremities. Psych unable to assess IV line sites with no e/o infection. Assessment & Plan Remarks Septic Shock with MODS HCAP/plus aspiration pneumonia. nl resp kleber on sputum clx Meningitis/discitis(likely partially treated or parameningeal focus related CSF changes) New onset seizures likely secondary to [employer]OR infection process. Strep Grp B bacteremia sources: ? GI, skin as source. STEVEN neg, but done 2 weeks after abx were started ? embolic strokes Bilateral R> L LE cellulitis: improved. Acute renal failure UO improving. GFR > 40 Acute resp failure: pulm edema,aspiration PNA, sleep apnea. MRI of T spine negative Abnormal LFTs: sepsis related, ? rhabdo elevated CK. HTN DM2 uncontrolled. Obesity BMI 49.7 kg/m2 Diarrhea Cdiff negative. Recs: Continue Ceftriaxone IV q12 for possible meningitis/epidural abscess. d/w GI re: EGD and Colonoscopy due to Strep organism. Deferred to later date. Follow clinically. d/w RN: to have a dressing placed on cheek at pressure point. d/w : [place] doctors trying to get patient transferred to [place]. Patient spouse concerned about transfer being too soon. Patients spouse informs me that planned on repeat EEG and possibly an MRI due to her persistent altered mental status. d/w Nan Baez MD Jun 07, 2017 12:59
--- NOTE | 2017-06-07 15:10 | HHI.CCPN ---
Subjective Remarks/Hospital Course 66-year-old female presents confused and lethargic. Patient reportedly was recently seen today at an urgent care and received an injection for low back pain. Patient here denies headaches, chest pain or shortness of breath, abdominal pain or extremity pain. Patient does complain of low back pain. at bedside states that they're visiting from out of state for the past 3 months and will be returning back to their home state in a week. reports patient has chronic low back pain but this exacerbated over the last 24 hours starting yesterday morning. Patient was seen earlier today by her chiropractor for an adjustment and then was referred to an urgent care. Patient reportedly had a fever at the chiropractor's office and felt cold and clammy. At the urgent care patient was evaluated and reportedly had an injection of a nonsteroidal medication as she is diabetic and he did not want to give her a steroid injection. Patient went home about 1:00 PM she was drowsy so sat down in a chair and fell asleep according to the . He tried to awaken her at 4:30 and noticed that she was confusional and lethargic. He attempted to continue to awaken her over the next 2-3 hours and because she was not improving decided finally to call EMS to transport her to the emergency room. Patient and spouse denied any recent injury or fall. Patient was ambulatory this morning but this evening has difficulty elevating her lower extremities as well as she was generally extremely weak. 05/21 Patient is on BIPAP 12/5 with 45% FIO2. Afebrile. Awake. Renal function is improving with Cr: 1.87 from 2.74. 05/22 No events overnight. Patient is more awake and alert off BIPAP. Renal function is improving with Cr: 1.07 from 1.87. delayed note entry. consulted and seen at ~1500. RECONSULT NOTE: 05/30: reconsulted for worsening hypoxemia. now on 6L facemask. please refer to prior consult note for detailed medical history. In brief, 66yF lethargic female, back pain after injection, ? discitis/osteo, on abx for group B strep, worsening fever, tachycardia, tachypnea, o2 requirement to 6L facemask and RR up to 40s. patient unable to provide additional history but does appear in distress. 05/31: Patient remains encephalopathic, on high flow O2 via nasal cannula, this morning was on 60 L/m 55% FiO2. Subsequently has dropped to 30 L/m to extubate percent FiO2. Given 80 mg IV Lasix with no response. Subsequently given Bumex 2 mg IV push and started on Bumex drip at 1 mg/h to attempt to diurese in an effort to improve respiratory status however has not had any increase in urine output with Bumex drip. Creatinine came back elevated at 2.13. Suspect acute kidney injury/ATN which may be a reason for poor response to diuretics. She also spiked a temperature of 103 for which IV Ofirmev was ordered. 06/01: intubated overnight and hypotensive requiring vasopressors. now remains in shock on 2 vasopressors. bedside critical care echo demonstrates hyperdynamic LV with completely collapsed IVC. gave 2L bolus and started on mivf @ 100 cc/hr. still spiking fevers. discussed with Dr. Portillo and plan to repeat LP as well as cultures and imaging to look for source. clinically worse today. 06/02: off vasopressors. remains intubated and sedated, very encephalopathic. MRI with new punctate strokes. STEVEN being done today. also ? abscess in the pelvis of unknown origin, maybe contained diverticulitis? CT guided drainage. although some improvements in hemodynamics, no improvements in vent or encephalopathy. off pathway. 06/03: IR re-ct scan without any evidence of abdominal abscess. blood glucose still not controlled despite high dose algorithm. wbc downtrending. 06/04: wbc continues to downtrend. Cr improving as well. very hypokalemic despite aggressive replacement. blood glucose now < 200, but using high dose insulin drip and levemir. encephalopathy persists. 06/05: clinically improving. weakly following commands this morning. renal function improved. EEG negative for seizures. still too sleepy for safe extubation, but improved from yesterday. 06/06: continues to improve. still weakly following commands. failing SBT- on 20 of PSV with small tidal volumes and very tachypneic. slightly more awake, but still not awake enough for safe extubation. 06/07: Currently tolerating CPAP 15 PSV. Opens eyes tracks. Weekly follows commands on the lower extremity but delayed response. Remains off all sedation approximately 36 hours now. is at the bedside updated Objective Vital Signs Date Time Temp Pulse Resp B/P (MAP) Pulse Ox O2 Delivery O2 Flow Rate FiO2 06/07/17 14:22 93 40 06/07/17 14:00 91 06/07/17 12:00 98.9 27 116/56 (76) 06/06/17 09:22 BiPAP/CPAP Intake and Output 06/07/17 06/07/17 06/08/17 08:00 16:00 00:00 Intake Total 1271.5 ml 200 ml Output Total 3475 ml Balance -2203.5 ml 200 ml Result Diagram: 06/07/1741406/07/175 Imaging Last Impressions Liver Ultrasound 05/21/17 0000 Signed Impressions: Service Date/Time: Sunday, May 21, 2017 10:32 - CONCLUSION: 1. Hepatic steatosis. 2. Gallstones 3. Limited evaluation of the right kidney. Santana Lamar MD Chest X-Ray 05/21/17 0000 Signed Impressions: Service Date/Time: Sunday, May 21, 2017 06:17 - CONCLUSION: 1. Limited suboptimal study with motion artifact. 2. No definite acute cardiac pulmonary disease. Austin Orellana MD Head CT 05/20/171928 Signed Impressions: Service Date/Time: Saturday, May 20, 2017 19:55 - CONCLUSION: 1. No acute findings. Retention cyst right maxillary sinus. Jakob Scruggs MD Objective Remarks GENERAL: Patient is 66 yo lying in bed, intubated, off all sedation SKIN: Warm and dry. HEAD: Normocephalic. EYES: No scleral icterus. No injection or drainage. NECK: Trachea midline. large neck prevents accurate assessment of JVD. CARDIOVASCULAR: Tachycardic rate, regular rhythm. RESPIRATORY: intubated, fio2 40%, coarse breath sounds bilaterally, very tachypneic. Tidal volumes 350 PSV 15/8/40% GASTROINTESTINAL: Abdomen morbidly obese, soft, non-tender, nondistended. MUSCULOSKELETAL: No cyanosis, or edema. Neuro: Opens eyes to command tracks. intermittently weakly follows commands in lower extremity Procedures None Urinary Catheter: Yes Assessment to: Continue Date of Insertion: May 25, 2017 A/P Assessment and Plan Assessment: 66yF with encephalopathy thought to be secondary to [employer] AND [employer]ATEGY [employer]NER infection vs. toxic/metabolic, hypoxic respiratory failure, resolving sepsis. some improvements in mental status. still too somnolent for safe extubation. Respiratory failure persists. will obtain CXR. could be worsening pleural effusion. will continue forced diuresis because it appears that she is nearly 8 kg up from admission weight. continue daily SBTs while we optimize pulmonary function. will see if PT can get her OOB to stretcher chair. Plan: Neuro: Metabolic Encephalopathy- slight improvements. Discitis Possible [employer] Infection Acute CVA, multifocal areas of ischemia - RASS goal 0. - DC fentanyl. - Continue amantadine for wakefulness, modafinil for wakefulness. - carotid dopplers - frequent neuro checks - abx per ID. - daily sedation vacations. - aspirin - Prev TSH borderline high, ammonia normal. Check B12 Resp: Acute hypoxic and hypercarbic respiratory failure - persistent. - vent bundle, hob at 30 degrees, nebs - wean fio2 for spo2 > 90% - forced diuresis, lasix 40mg iv q6h. - daily SBTs. Unable to extubate at this time due to weakness and altered mentation CV: Septic Shock - resolved. - off vasopressors - STEVEN negative for vegetations, small PFO. Renal: Acute kidney injury- resolved - continue Chiu - forced diuresis with lasix goal net -2L/24h. - daily bmp FEN/GI: Shock liver - persistent Morbid obesity Hypokalemia Volume overload Acute protein calorie malnutrition- moderate - glucerna tube feeds - ICU electrolyte protocol - daily bmp - trend LFTs Heme/ID: Septic Shock - resolved Discitis Possible healthcare associated aspiration pneumonia Strep bacteremia (recent blood cultures negative) - abx per ID Dr. Portillo - cultures NGTD - if discitis is truly the source and no improvements, could consider disc biopsy in the future. - continues on Rocephin. - all cultures NGTD so far. 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 - increase Levemir to 80 units SQ q12h Prophylaxis: - pepcid - SCDs - SQH Lines: - chiu: keep while active diuresis. Highly complex with ongoing multiple medical problems. Dex Dillon MD Jun 07, 2017 15:10
[2017-06-07 18:07] LABS: POTASSIUM 3.9 MEQ/L (3.5-5.1)
[2017-06-07 18:29] LABS: FREE T4 0.61 NG/DL (0.76-1.46)
--- NOTE | 2017-06-07 19:29 | HHI.PR ---
Subjective Remarks 66 YOObese WF with Hypercapnoea, Cellulitis, Bactremia Intubated Off sedation Tolerated CPAP for 6 hr Follows simple commands No Fever Objective Vital Signs Vital Signs Date Time Temp Pulse Resp B/P (MAP) Pulse Ox O2 Delivery O2 Flow Rate FiO2 06/07/17 18:00 92 06/07/17 17:00 91 06/07/17 16:00 100.4 91 25 143/65 (91) 93 06/07/17 16:00 91 06/07/17 16:00 35 06/07/17 15:00 91 06/07/17 15:00 92 26 129/56 (80) 94 06/07/17 14:22 93 40 06/07/17 14:00 91 25 133/61 (85) 92 06/07/17 14:00 91 06/07/17 13:00 89 27 117/56 (76) 93 06/07/17 13:00 89 06/07/17 12:00 87 06/07/17 12:00 35 06/07/17 12:00 98.9 87 27 116/56 (76) 93 06/07/17 11:00 87 30 104/51 (68) 93 06/07/17 11:00 87 06/07/17 10:00 95 06/07/17 10:00 93 28 144/62 (89) 99 06/07/17 09:00 95 31 127/57 (80) 94 06/07/17 09:00 93 06/07/17 08:00 100.4 94 27 140/60 (86) 91 06/07/17 08:00 35 06/07/17 08:00 95 06/07/17 07:34 92 40 06/07/17 07:00 92 26 137/60 (85) 93 06/07/17 07:00 92 06/07/17 06:00 95 06/07/17 04:00 100.1 91 23 150/64 (92) 94 06/07/17 04:00 40 06/07/17 04:00 91 06/07/17 03:52 93 40 06/07/17 02:00 91 06/07/17 00:39 97 40 06/07/17 00:00 40 06/07/17 00:00 98.8 87 25 140/63 (88) 95 06/07/17 00:00 87 06/06/17 22:00 91 06/06/17 20:37 93 40 06/06/17 20:00 100.8 92 26 150/66 (94) 96 06/06/17 20:00 92 06/06/17 20:00 40 I/O 06/06/17 06/06/17 06/06/17 06/07/17 06/07/17 06/07/17 07:00 15:00 23:00 07:00 15:00 23:00 Intake Total 883.3 ml 1343.0 ml 1271.5 ml 100 ml 1228 ml Output Total 2675 ml 3200 ml 3475 ml 1750 ml Balance -1791.7 ml -1857.0 ml -2203.5 ml 100 ml -522 ml IV Total 544.3 ml 415.0 ml 184.5 ml 100 ml Tube Feeding 339 ml 468 ml 487 ml 628 ml Other 460 ml 600 ml 600 ml Output Urine Total 2675 ml 3000 ml 3475 ml 1650 ml Stool Total 200 ml 100 ml Result Diagram: 06/07/17 0415 06/07/17 1654 Objective Remarks GENERAL: Morbidly obese WF, mild sob SKIN: Warm and dry. HEAD: Normocephalic. EYES: No scleral icterus. No injection or drainage. NECK: Supple, trachea midline. No JVD or lymphadenopathy. CARDIOVASCULAR: Regular rate and rhythm without murmurs, gallops, or rubs. RESPIRATORY: Breath sounds equal bilaterally. No accessory muscle use. GASTROINTESTINAL: Abdomen soft, non-tender, nondistended. MUSCULOSKELETAL: No cyanosis, or edema. has swelling and redness of legs BACK: Nontender without obvious deformity. No CVA tenderness. A/P Assessment and Plan Hypercapnoic Resp Insuff CHE or Obesity Hypoventilation synd Cellulitis legs Bactremia back pain Sepsis Encephalopathy PLAN: Vent Support Aerosol nebs Wean 02 to keep sat 88-92% Abx per ID Cont Dilantin Daily CPAP trial. Dima Bang MD Jun 07, 2017 19:29
[2017-06-08] VITALS (25 sets, daily range): BP systolic 109–157; BP diastolic 50–71; PULSE 92–102; RESP 17–36; TEMP 98.7–101.8; O2SAT 90–98
[2017-06-08] MEDS: CHLORHEXIDINE GLUCONATE 2 % 1 PACK (2 CLOTHS) TOP SCH (04:00)
[2017-06-08] MEDS: FREE WATER G-TUBE SCH ×5 (06:00→23:53)
[2017-06-08 06:04] LABS: AUTOMATED NEUTROPHIL # 9.8 TH/MM3 (1.8-7.7); BASOPHIL # 0.2 TH/MM3 (0-0.2); BASOPHIL % 1.5 % (0.0-2.0); EOSINOPHIL # 0.5 TH/MM3 (0-0.4); EOSINOPHIL % 3.1 % (0.0-4.0); HEMATOCRIT 30.6 % (35.0-46.0); LYMPH % 18.4 % (9.0-44.0); LYMPHOCYTE # 2.8 TH/MM3 (1.0-4.8); MEAN CELL VOLUME 88.9 FL (80.0-100.0); MEAN CORPUSCULAR HEMOGLOBIN 28.4 PG (27.0-34.0); MEAN CORPUSCULAR HGB CONC 31.9 % (32.0-36.0); PLATELET COUNT 190 TH/MM3 (150-450); RED BLOOD COUNT 3.44 MIL/MM3 (4.00-5.30); RED CELL DISTRIBUTION WIDTH 16.4 % (11.6-17.2); WHITE BLOOD COUNT 15.4 TH/MM3 (4.0-11.0)
[2017-06-08 06:08] LABS: HEMO FLAGS AUTO DIFF
--- NOTE | 2017-06-08 06:12 | RADRPT ---
EXAM DATE/TIME: 06/08/2017 04:23 [facility] COMPARISON: CHEST SINGLE AP, June 06, 2017, 12:08. INDICATIONS : Shortness of breath, possible pulmonary disease. MEDICAL HISTORY : Diabetes mellitus type II. Hypertension Renal failure, acute. SURGICAL HISTORY : section. ENCOUNTER: Subsequent ACUITY: 2 weeks PAIN SCORE: Non-responsive. LOCATION: Bilateral chest FINDINGS: The cardiac silhouette is enlarged in transverse diameter. A moderate size right sided effusion is pr esent. There is bilateral lower lobe atelectasis versus pneumonia. Support lines and tubes are in sat isfactory position. CONCLUSION: 1. Cardiomegaly. Bilateral lower lobe atelectasis versus pneumonia. 2. Moderate right effusion Monty Gross MD on June 08, 2017 at 6:09 Board Certified Radiologist. This report was verified electronically.
[2017-06-08] MEDS: cefTRIAXone INJ 2,000 MG in SODIUM CHLORIDE 0.9% INJ 100 ML IV SCH ×2 (06:24→16:34)
[2017-06-08] MEDS: HEPARIN SODIUM - SQ 10,000 UNITS/ML VIAL SQ SCH (06:25)
[2017-06-08] MEDS: PHENYTOIN INJ 100 MG/2 ML VIAL IV SCH ×3 (06:25→20:59)
[2017-06-08] MEDS: FUROSEMIDE 40 MG/4 ML VIAL IV PUSH SCH ×4 (06:25→23:53)
[2017-06-08 06:26] LABS: ANION GAP 8 MEQ/L (5-15); AST (GOT) 65 U/L (15-37); BICARBONATE 30.9 MEQ/L (21.0-32.0); BLOOD UREA NITROGEN 13 MG/DL (7-18); CHLORIDE 103 MEQ/L (98-107); GLOMERULAR FILTRATION RATE 67 ML/MIN (>89); MAGNESIUM 1.5 MG/DL (1.5-2.5); POTASSIUM 3.2 MEQ/L (3.5-5.1); SODIUM (NA) 142 MEQ/L (136-145)
[2017-06-08 06:28] LABS: ALT (GPT) 65 U/L (10-53)
[2017-06-08 06:30] LABS: ALKALINE PHOSPHATASE 393 U/L (45-117); TOTAL BILIRUBIN ADULT 0.5 MG/DL (0.2-1.0)
[2017-06-08] MEDS: CARVEDILOL 6.25 MG TAB PO SCH ×2 (08:48→21:00)
[2017-06-08] MEDS: AMANTADINE HCL SOLN 100 MG/10 ML UDC PO SCH ×2 (08:48→13:28)
[2017-06-08] MEDS: MODAFINIL 200 MG TAB PO SCH (08:48)
[2017-06-08] MEDS: DOCUSATE SODIUM 50 MG/SENNA 8.6 MG TAB PO SCH ×2 (08:48→20:59)
[2017-06-08] MEDS: ASPIRIN 325 MG TAB PO SCH (08:48)
[2017-06-08] MEDS: levETIRAcetam INJ 750 MG in SODIUM CHLORIDE 0.9% INJ 100 ML IV SCH ×2 (08:48→21:16)
[2017-06-08] MEDS: INSULIN DETEMIR 100 UNITS/ML VIAL SQ SCH ×2 (08:49→20:57)
[2017-06-08] MEDS: SODIUM CHLORIDE 0.9% FLUSH 10 ML FLUSH IV FLUSH SCH ×2 (08:49→21:02)
[2017-06-08] MEDS: FAMOTIDINE 20 MG/2 ML VIAL IV PUSH SCH ×2 (08:49→21:16)
[2017-06-08] MEDS: NYSTATIN 100,000 U/GM PWD 15 GM BTL TOPICAL SCH ×2 (08:49→20:58)
[2017-06-08 09:24] LABS: BANDS 17 % (0-6); CORRECTED NUCLEATED RBC 6 /100 WBC (0-0); EOSINOPHILS 3 % (0-4); METAMYELOCYTES 2 % (0-1); MYELOCYTES 8 % (0-0); NEUTROPHIL # MANUAL DIFF 10.6 TH/MM3 (1.8-7.7); POLYS (SEG NEUTROPHILS) 36 % (16-70); PROMYELOCYTES 6 % (0-0); WBC DIFF SAMPLE 100
[2017-06-08 09:26] LABS: TOXIC GRANULATION 1+ (NORMAL)
[2017-06-08 09:28] LABS: PLATELET ESTIMATE SMEAR NORMAL (NORMAL); PLATELET MORPHOLOGY ENLARGED (NORMAL); SCAN/DIFF FINAL DIFF MANUAL
[2017-06-08] MEDS: INSULIN REGULAR (IV INFUSION) 100 UNITS in SODIUM CHLORIDE 0.9% INJ 99 ML IV PRN ×2 (09:35→18:35)
--- NOTE | 2017-06-08 09:49 | HHI.CCPN ---
Subjective Remarks/Hospital Course 66-year-old female presents confused and lethargic. Patient reportedly was recently seen today at an urgent care and received an injection for low back pain. Patient here denies headaches, chest pain or shortness of breath, abdominal pain or extremity pain. Patient does complain of low back pain. at bedside states that they're visiting from out of state for the past 3 months and will be returning back to their home state in a week. reports patient has chronic low back pain but this exacerbated over the last 24 hours starting yesterday morning. Patient was seen earlier today by her chiropractor for an adjustment and then was referred to an urgent care. Patient reportedly had a fever at the chiropractor's office and felt cold and clammy. At the urgent care patient was evaluated and reportedly had an injection of a nonsteroidal medication as she is diabetic and he did not want to give her a steroid injection. Patient went home about 1:00 PM she was drowsy so sat down in a chair and fell asleep according to the . He tried to awaken her at 4:30 and noticed that she was confusional and lethargic. He attempted to continue to awaken her over the next 2-3 hours and because she was not improving decided finally to call EMS to transport her to the emergency room. Patient and spouse denied any recent injury or fall. Patient was ambulatory this morning but this evening has difficulty elevating her lower extremities as well as she was generally extremely weak. 05/21 Patient is on BIPAP 12/5 with 45% FIO2. Afebrile. Awake. Renal function is improving with Cr: 1.87 from 2.74. 05/22 No events overnight. Patient is more awake and alert off BIPAP. Renal function is improving with Cr: 1.07 from 1.87. delayed note entry. consulted and seen at ~1500. RECONSULT NOTE: 05/30: reconsulted for worsening hypoxemia. now on 6L facemask. please refer to prior consult note for detailed medical history. In brief, 66yF lethargic female, back pain after injection, ? discitis/osteo, on abx for group B strep, worsening fever, tachycardia, tachypnea, o2 requirement to 6L facemask and RR up to 40s. patient unable to provide additional history but does appear in distress. 05/31: Patient remains encephalopathic, on high flow O2 via nasal cannula, this morning was on 60 L/m 55% FiO2. Subsequently has dropped to 30 L/m to extubate percent FiO2. Given 80 mg IV Lasix with no response. Subsequently given Bumex 2 mg IV push and started on Bumex drip at 1 mg/h to attempt to diurese in an effort to improve respiratory status however has not had any increase in urine output with Bumex drip. Creatinine came back elevated at 2.13. Suspect acute kidney injury/ATN which may be a reason for poor response to diuretics. She also spiked a temperature of 103 for which IV Ofirmev was ordered. 06/01: intubated overnight and hypotensive requiring vasopressors. now remains in shock on 2 vasopressors. bedside critical care echo demonstrates hyperdynamic LV with completely collapsed IVC. gave 2L bolus and started on mivf @ 100 cc/hr. still spiking fevers. discussed with Dr. Portillo and plan to repeat LP as well as cultures and imaging to look for source. clinically worse today. 06/02: off vasopressors. remains intubated and sedated, very encephalopathic. MRI with new punctate strokes. STEVEN being done today. also ? abscess in the pelvis of unknown origin, maybe contained diverticulitis? CT guided drainage. although some improvements in hemodynamics, no improvements in vent or encephalopathy. off pathway. 06/03: IR re-ct scan without any evidence of abdominal abscess. blood glucose still not controlled despite high dose algorithm. wbc downtrending. 06/04: wbc continues to downtrend. Cr improving as well. very hypokalemic despite aggressive replacement. blood glucose now < 200, but using high dose insulin drip and levemir. encephalopathy persists. 06/05: clinically improving. weakly following commands this morning. renal function improved. EEG negative for seizures. still too sleepy for safe extubation, but improved from yesterday. 06/06: continues to improve. still weakly following commands. failing SBT- on 20 of PSV with small tidal volumes and very tachypneic. slightly more awake, but still not awake enough for safe extubation. 06/07: Currently tolerating CPAP 15 PSV. Opens eyes tracks. Weekly follows commands on the lower extremity but delayed response. Remains off all sedation approximately 36 hours now. is at the bedside updated 06/08: Fever 100.8, WBC 15.4. But slightly more awake and focussed today. Wiggles toes to command with a delay. CXR shows moderate effusion- plan for CT guided thoracentesis today. D/W IR Dr. Quintanilla and ID Dr. Portillo Objective Vital Signs Date Time Temp Pulse Resp B/P (MAP) Pulse Ox O2 Delivery O2 Flow Rate FiO2 06/08/17 09:00 98 31 125/61 (82) 92 06/08/17 08:00 100.8 06/08/17 07:42 40 06/06/17 09:22 BiPAP/CPAP Intake and Output 06/08/17 06/08/17 06/09/17 08:00 16:00 00:00 Intake Total 1310 ml Output Total 2550 ml Balance -1240 ml Result Diagram: 06/08/17 0435 06/08/17 0435 Imaging Last Impressions Liver Ultrasound 05/21/17 0000 Signed Impressions: Service Date/Time: Sunday, May 21, 2017 10:32 - CONCLUSION: 1. Hepatic steatosis. 2. Gallstones 3. Limited evaluation of the right kidney. Santana Lamar MD Chest X-Ray 05/21/17 0000 Signed Impressions: Service Date/Time: Sunday, May 21, 2017 06:17 - CONCLUSION: 1. Limited suboptimal study with motion artifact. 2. No definite acute cardiac pulmonary disease. Austin Orellana MD Head CT 05/20/17 192 Signed Impressions: Service Date/Time: Saturday, May 20, 2017 19:55 - CONCLUSION: 1. No acute findings. Retention cyst right maxillary sinus. Jakob Scruggs MD Objective Remarks GENERAL: Patient is 66 yo lying in bed, intubated, off all sedation SKIN: Warm and dry. HEAD: Normocephalic. EYES: No scleral icterus. No injection or drainage. NECK: Trachea midline. large neck prevents accurate assessment of JVD. Central line removed CARDIOVASCULAR: Tachycardic rate, regular rhythm. RESPIRATORY: intubated, fio2 40-45%, coarse breath sounds bilaterally, slightly tachypneic. Tidal volumes 350 PSV 12/8/45% GASTROINTESTINAL: Abdomen morbidly obese, soft, non-tender, nondistended. MUSCULOSKELETAL: No cyanosis, or edema. Neuro: Opens eyes to command tracks. Weakly follows commands in lower extremity with a delay Procedures None Date of Insertion: May 25, 2017 A/P Assessment and Plan Assessment: 66yF with encephalopathy thought to be secondary to [employer] infection vs. toxic/metabolic, hypoxic respiratory failure, resolving sepsis. some improvements in mental status. still too somnolent for safe extubation. Respiratory failure persists. will obtain CXR. could be worsening pleural effusion. will continue forced diuresis because it appears that she is nearly 8 kg up from admission weight. continue daily SBTs while we optimize pulmonary function. will see if PT can get her OOB to stretcher chair. Plan: Neuro: Metabolic Encephalopathy- slight improvement. Acute CVA, multifocal areas of ischemia Possible [employer] Infection Discitis - RASS goal 0. - DCd fentanyl. Off all sedating medications - Continue amantadine and, modafinil for wakefulness. - frequent neuro checks - abx per ID. - aspirin - Prev TSH borderline high, T4 low. Start Synthroid 25 mcg IV daily. Previous random cortisol normal - Ammonia normal. B12 normal - EEG today, carotid doppler Resp: Acute hypoxic and hypercarbic respiratory failure - persistent. Right pleural effusion - vent bundle, hob at 30 degrees, nebs. U p to chair today - wean fio2 for spo2 > 90% - forced diuresis, lasix 40mg iv q6h. - daily SBTs. Unable to extubate at this time due to weakness and altered mentation - CT guided thoracentesis today with fluid studies CV: Septic Shock - resolved. 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 - Currently only on ceftriaxone per ID - Right thoracentesis with fluid studies Renal: Acute kidney injury- resolved - continue Chiu - forced diuresis with Lasix goal net -2L/24h. - daily bmp FEN/GI: Shock liver - persistent Morbid obesity Hypokalemia Volume overload Acute protein calorie malnutrition- moderate - Glucerna tube feeds - ICU electrolyte protocol - daily bmp - trend LFTs Heme/ID: Septic Shock - resolved Discitis Possible healthcare associated aspiration pneumonia Strep bacteremia (recent blood cultures negative) - abx per ID Dr. Portillo - cultures NGTD except initial 4/4 bottles with group B strp - There is clinical concern for endocarditis (4/4 bottle strep, brain emboli delfino though STEVEN negative) - if discitis is truly the source and no improvements, could consider disc biopsy in the future. - continues on Rocephin. - Send pleural fluid studies Endocrine: Severe hyperglycemia Relative Adrenal Insufficiency - steroid taper, now DCd - severe hyperglycemia despite high dose insulin drip - continue insulin drip Algorithm #4. - increased Levemir to 80 units SQ q12h Prophylaxis: - pepcid - SCDs - SQH Lines: - chiu: keep while active diuresis. Highly complex with ongoing multiple medical problems. Level 3 Dex Dillon MD Jun 08, 2017 09:49
[2017-06-08] MEDS: LEVOTHYROXINE SODIUM 100 MCG VIAL IV PUSH SCH (11:00)
[2017-06-08] MEDS: ALBUMIN 25% INJ 50 ML IV SCH ×2 (11:01→23:53)
[2017-06-08] MEDS: metroNIDAZOLE 500 MG TAB PO SCH ×2 (11:01→18:19)
[2017-06-08] MEDS: POTASSIUM CHLOR 20 MEQ PREMIX 100 ML IV PRN ×2 (11:04→13:15)
--- NOTE | 2017-06-08 11:23 | HHI.IDPN ---
Subjective Subjective Remarks is a 66-year-old female presents confused and lethargic. Patient reportedly was recently seen today at an urgent care and received an injection for low back pain. Patient here denies headaches, chest pain or shortness of breath, abdominal pain or extremity pain. Patient does complain of low back pain. at bedside states that they're visiting from out of state for the past 3 months and will be returning back to their home state in a week. reports patient has chronic low back pain but this exacerbated over the last 24 hours starting yesterday morning. Patient was seen earlier today by her chiropractor for an adjustment and then was referred to an urgent care. Patient reportedly had a fever at the chiropractor's office and felt cold and clammy. At the urgent care patient was evaluated and reportedly had an injection of a nonsteroidal medication as she is diabetic and he did not want to give her a steroid injection. Patient went home about 1:00 PM she was drowsy so sat down in a chair and fell asleep according to the . He tried to awaken her at 4:30 and noticed that she was confusional and lethargic. He attempted to continue to awaken her over the next 2-3 hours and because she was not improving decided finally to call EMS to transport her to the emergency room. Patient and spouse denied any recent injury or fall. Patient was ambulatory this morning but this evening has difficulty elevating her lower extremities as well as she was generally extremely weak. ID following for Strep bacteremia, probable endocarditis, Septic emboli cerebral , discitis based on 1st imaging. bilateral LE cellulitis. Overnight events reviewed. Opens eyes spontaneously. Moves all extremities on painful stimuli and spontaneously. Reportedly followed simple commands for spouse. Not responding to commands for me. UO 1600 cc overnight on bumex. Continues to have low grade temps. Not on pressors. Urine with sediment in chiu bag. No rash No diarrhea. Antibiotics CFTX Lines Line sites with no e.o infection Past Medical History Diabetes Dyslipidemia Hypertension Chronic back pain sees a chiropracter. Chronic lower extremity swelling. Never had an ECHO before per pt and spouse. ? Sleep apnea. Allergies: Coded Allergies: No Known Allergies (Unverified , 05/20/17) Objective . Vital Signs Date Time Temp Pulse Resp B/P (MAP) Pulse Ox O2 Delivery O2 Flow Rate FiO2 11/9/17 09:00 98 31 125/61 (82) 92 06/08/17 08:00 100.8 97 27 123/56 (78) 92 06/08/17 07:42 92 40 06/08/17 07:00 96 22 128/60 (82) 91 06/08/17 06:00 93 06/08/17 04:01 92 40 06/08/17 04:00 40 06/08/17 04:00 95 06/08/17 04:00 98.9 95 19 139/63 (88) 92 06/08/17 02:00 95 06/08/17 01:16 93 40 06/08/17 00:00 92 06/08/17 00:00 40 06/08/17 00:00 98.7 92 19 123/58 (79) 91 06/07/17 22:02 92 40 06/07/17 22:00 92 06/07/17 20:00 99.5 95 22 143/63 (89) 94 06/07/17 20:00 95 06/07/17 20:00 40 06/07/17 19:54 94 40 06/07/17 18:00 92 06/07/17 17:00 91 06/07/17 16:00 100.4 91 25 143/65 (91) 93 06/07/17 16:00 91 06/07/17 16:00 35 06/07/17 15:00 91 06/07/17 15:00 92 26 129/56 (80) 94 06/07/17 14:22 93 40 06/07/17 14:00 91 25 133/61 (85) 92 06/07/17 14:00 91 06/07/17 13:00 89 27 117/56 (76) 93 06/07/17 13:00 89 06/07/17 12:00 87 06/07/17 12:00 35 06/07/17 12:00 98.9 87 27 116/56 (76) 93 . Laboratory Tests Test 06/07/17 04:15 06/08/17 04:35 White Blood Count 12.2 TH/MM3 15.4 TH/MM3 Red Blood Count 3.42 MIL/MM3 3.44 MIL/MM3 Hemoglobin 9.8 GM/DL 9.8 GM/DL Hematocrit 30.6 % 30.6 % Mean Corpuscular Volume 89.4 FL 88.9 FL Mean Corpuscular Hemoglobin 28.6 PG 28.4 PG Mean Corpuscular Hemoglobin Concent 32.0 % 31.9 % Red Cell Distribution Width 16.7 % 16.4 % Platelet Count 174 TH/MM3 190 TH/MM3 Mean Platelet Volume 9.9 FL 10.6 FL Neutrophils (%) (Auto) 64.0 % Lymphocytes (%) (Auto) 18.4 % Monocytes (%) (Auto) 13.0 % Eosinophils (%) (Auto) 3.1 % Basophils (%) (Auto) 1.5 % Neutrophils # (Auto) 9.8 TH/MM3 Lymphocytes # (Auto) 2.8 TH/MM3 Monocytes # (Auto) 2.0 TH/MM3 Eosinophils # (Auto) 0.5 TH/MM3 Basophils # (Auto) 0.2 TH/MM3 CBC Comment AUTO DIFF Differential Total Cells Counted 100 Neutrophils % (Manual) 36 % Band Neutrophils % 17 % Lymphocytes % 13 % Monocytes % 15 % Eosinophils % 3 % Neutrophils # (Manual) 10.6 TH/MM3 Metamyelocytes 2 % Myelocytes 8 % Promyelocytes 6 % Nucleated Red Blood Cells 6 /100 WBC Differential Comment FINAL DIFF MANUAL Toxic Granulation 1+ Platelet Estimate NORMAL Platelet Morphology Comment ENLARGED Laboratory Tests Test 06/06/17 11:42 06/07/17 04:15 06/07/17 16:54 06/08/17 04:35 Potassium Level 3.4 MEQ/L 3.1 MEQ/L 3.9 MEQ/L 3.2 MEQ/L Blood Urea Nitrogen 12 MG/DL 13 MG/DL Creatinine 0.84 MG/DL 0.85 MG/DL Random Glucose 198 MG/DL 207 MG/DL Calcium Level 7.9 MG/DL 8.5 MG/DL Phosphorus Level 1.8 MG/DL 3.4 MG/DL 2.5 MG/DL Sodium Level 148 MEQ/L 142 MEQ/L Chloride Level 109 MEQ/L 103 MEQ/L Carbon Dioxide Level 29.8 MEQ/L 30.9 MEQ/L Anion Gap 9 MEQ/L 8 MEQ/L Estimat Glomerular Filtration Rate 68 ML/MIN 67 ML/MIN Vitamin B12 Level 1355 PG/ML Free Thyroxine 0.61 NG/DL Total Protein 6.0 GM/DL Albumin 1.4 GM/DL Magnesium Level 1.5 MG/DL Alkaline Phosphatase 393 U/L Aspartate Amino Transf (AST/SGOT) 65 U/L Alanine Aminotransferase (ALT/SGPT) 65 U/L Total Bilirubin 0.5 MG/DL Imaging Last Impressions Lumbar Spine MRI 06/03/17 Signed Impressions: Service Date/Time: Saturday, June 03, 2017 15:42 - CONCLUSION: The MRI findings after contrast administration are not convincing for presence of active infection within the L3/L4 disc, adjacent vertebral bodies or epidural space/adjacent soft tissues. Santana Eric MD Pelvis CT 06/02/17 Signed Impressions: Service Date/Time: Friday, June 02, 2017 17:29 - CONCLUSION: No evidence of intra-abdominal abscess collection. Nikita Damon MD Chest X-Ray 06/02/17 Signed Impressions: Service Date/Time: Friday, June 02, 2017 15:14 - CONCLUSION: 1. Cardiomegaly. 2. Perihilar infiltrates consistent with mild to moderate pulmonary vascular congestion versus pneumonia. 3. Small right pleural effusion. 4. Multiple tubes and lines are stable. Nikita Damon MD Abdomen X-Ray 06/02/17 Signed Impressions: Service Date/Time: Friday, June 02, 2017 15:20 - CONCLUSION: OG tube in the stomach. Mike Davis MD FACR Chest CT 06/01/17 Signed Impressions: Service Date/Time: May 18:49 - CONCLUSION: 1. Dense consolidation in both posterior lower lobes right greater than left with air bronchograms. This could represent pneumonia. 2. Small bilateral pleural effusions. 3. Mild cardiomegaly. Austin Orellana MD Brain MRI 06/01/17 Signed Impressions: Service Date/Time: May 19:15 - CONCLUSION: 1. Multiple new small scattered punctate areas of restricted diffusion consistent with small areas of infarction. This could be secondary to emboli. 2. No acute hemorrhage or mass effect. 3. Acute sinusitis in the ethmoidal air cells and sphenoid sinus with air fluid levels. Austin Orellana MD Abdomen/Pelvis CT 06/01/17 Signed Impressions: Service Date/Time: May 18:49 - CONCLUSION: 1. Suboptimal opacification of the bowel with the distal small bowel unopacified. There is a questionable abnormal gas collection in the anterior lower pelvis. An abscess is not excluded. A repeat study is recommended after additional oral contrast is given. 2. Consolidation in both posterior lung bases with small pleural effusions. Austin Orellana MD Renal Ultrasound 05/31/17 0000 Signed Impressions: Service Date/Time: Wednesday, May 31, 2017 20:47 - CONCLUSION: 1. Suboptimal exam with visualization. 2. No evidence of hydronephrosis. 3. Cyst extending off right kidney. Austin Orellana MD Lower Extremity Ultrasound 05/29/17 0000 Signed Impressions: Service Date/Time: Monday, May 29, 2017 13:10 - CONCLUSION: 1. No evidence of deep venous thrombosis. Monty Gross MD Tumor Localization 05/26/17 0000 Signed Impressions: Service Date/Time: Friday, May 26, 2017 13:36 - CONCLUSION: No abnormal uptake identified to suggest infection. Nikita Damon MD Liver Ultrasound 05/21/17 0000 Signed Impressions: Service Date/Time: Sunday, May 21, 2017 10:32 - CONCLUSION: 1. Hepatic steatosis. 2. Gallstones 3. Limited evaluation of the right kidney. Santana Lamar MD Head CT [id number] Signed Impressions: Service Date/Time: Saturday, May 20, 2017 19:55 - CONCLUSION: 1. No acute findings. Retention cyst right maxillary sinus. Jakob Scruggs MD Physical Exam GENERAL: Obese patient. sedated int'd on mech vent SKIN: No rashes. Ecchymosis noted. No Janeway lesion no splinter hemorrhages. HEAD: Atraumatic. Normocephalic. EYES: Pupils equal round and reactive. Extraocular motions intact. No scleral icterus. No injection or drainage. ENT: Nose without bleeding, purulent drainage or septal hematoma. Throat without erythema, tonsillar hypertrophy or exudate. Uvula midline. Airway patent. NECK: Large neck, intubated. Supple CARDIOVASCULAR: Regular rate and rhythm without murmurs. well perused periphery with good refill RESPIRATORY: Breath sounds equal bilaterally.Clear to auscultation anteriorly GASTROINTESTINAL: Abdomen soft, non-tender, nondistended. Obese. No hepatosplenomegaly Incontinent of dark liquid stool chiu in place. MUSCULOSKELETAL: Extremities without clubbing, cyanosis. Pedal edema diminished , skin over legs now wrinkled. NEUROLOGICAL: Sedated, moves extremities on painful stimuli both upper and lower extremities. Psych unable to assess IV line sites with no e/o infection. Assessment & Plan Remarks Septic Shock with MODS HCAP/plus aspiration pneumonia. nl resp kleber on sputum clx Meningitis/discitis(likely partially treated or parameningeal focus related CSF changes) New onset seizures likely secondary to [employer] infection process. Strep Grp B bacteremia sources: ? GI, skin as source. STEVEN neg, but done 2 weeks after abx were started ? embolic strokes secondary to probable endocarditis. Bilateral R> L LE cellulitis: improved. Acute renal failure UO improving. GFR > 40 Acute resp failure: pulm edema,aspiration PNA, sleep apnea. MRI of T spine negative Abnormal LFTs: sepsis related, ? rhabdo elevated CK. HTN DM2 uncontrolled. Obesity BMI 49.7 kg/m2 Diarrhea Cdiff negative. Recs: Continue Ceftriaxone IV q12 for possible meningitis/epidural abscess,covers endocarditis if emboli are possibly septic. Add Flagyl (when flagyl stopped due to encephalopathy the fevers started recurring, ? anaerobic component of PNA. Add Diflucan at risk for fungal UTI. d/w GI re: EGD and Colonoscopy due to Strep organism. Deferred to later date. Hankins cultures today: UA, Sputum, Blood cultures. CXR reviewed moderate effusion: plan for thoracentesis. Orders reviewed. Doppler UE and LE to r/o septic thrombophlebitis or DVT as cause for persistent low grade fevers. EEG and phenytoin levels noted per Neuro. Pending results. CL removed already Chiu changed on May 31, 2017. Follow cultures. Follow clinically. d/w and RN D.w Spouse in room updated about plan. Nan Portillo MD Jun 08, 2017 11:23
[2017-06-08 11:55] LABS: BACTERIA, URINE RARE /hpf; BLOOD, URINE MOD (NEG); GLUCOSE,URINE NEG (NEG); KETONE, URINE NEG (NEG); MUCUS URINE FEW /lpf (OCC); NITRITE,URINE NEG (NEG); SQUAMOUS EPITHELIAL CELL URINE 2 /hpf (0-5); URINE COLOR YELLOW (YELLW/STRAW)
[2017-06-08 11:56] LABS: COMMENT (UR) CATH-CULTURE IND; CULTURE IF INDICATED CATH CULTURE IND
--- NOTE | 2017-06-08 12:14 | RADRPT ---
EXAM DATE/TIME: 06/08/2017 10:29 [facility] COMPARISON: No previous studies available for comparison. INDICATIONS : Cerebrovascular accident. MEDICAL HISTORY : Hypertension. Dyspnea. Diabetes. Chronic lower back pain. SURGICAL HISTORY : section. ENCOUNTER: Initial ACUITY: 1 day PAIN SCORE: Nonresponsive. LOCATION: Bilateral neck PEAK SYSTOLIC VELOCITIES (cm/sec): ICA/CCA RATIO: Right: 0.8 Left: 0.8 ICA: Right: 123 Left: 103 CCA: Right: 147 Left: 133 ECA: Right: 147 Left: 112 VERTEBRAL: Right: 75 antegrade Left: 68 antegrade Elevated flow velocities and ICA/CCA ratios have been found to correlate with increased degrees of vessel stenosis, calculated as percentage of diameter relative to a normal segment of distal ICA/CCA FINDINGS: RIGHT CAROTID: No significant stenosis is visualized. The waveforms are within normal limits. LEFT CAROTID: Trace plaque in the bulb and proximal internal carotid artery. VERTEBRAL ARTERIES: Antegrade flow is seen in both vertebral arteries. MISCELLANEOUS: None. CONCLUSION: Minimal atherosclerotic plaque of the left carotid bifurcation. Otherwise normal. No significant narr owing. Santana Eric MD on June 08, 2017 at 12:11 Board Certified Radiologist. This report was verified electronically.
--- NOTE | 2017-06-08 12:18 | RADRPT ---
EXAM DATE/TIME: 06/08/2017 10:45 [facility] COMPARISON: No previous studies available for comparison. INDICATIONS : Bilateral arm swelling. MEDICAL HISTORY : Hypertension. Dyspnea. Diabetes. Chronic lower back pain. SURGICAL HISTORY : section. ENCOUNTER: Initial ACUITY: 1 day PAIN SCORE: Non-responsive LOCATION: Bilateral arms. FINDINGS: RIGHT UPPER EXTREMITY: There is occlusive thrombus in the right cephalic vein. Other venous tributaries of the right upper e xtremity are patent. LEFT UPPER EXTREMITY: There is occlusive thrombus in the left cephalic vein. Other venous tributaries of the left upper ext remity are patent. CONCLUSION: Superficial venous thrombosis of the bilateral upper extremities involving the cephalic veins. Deep v eins are patent. Santana Eric MD on June 08, 2017 at 12:15 Board Certified Radiologist. This report was verified electronically.
--- NOTE | 2017-06-08 12:35 | RADRPT ---
EXAM DATE/TIME: 06/08/2017 11:01 [facility] COMPARISON: No previous studies available for comparison. INDICATIONS : Bilateral leg swelling. MEDICAL HISTORY : Hypertension. Dyspnea. Diabetes. Chronic lower back pain. SURGICAL HISTORY : section. ENCOUNTER: Initial ACUITY: 1 day PAIN SCORE: Non-responsive LOCATION: Bilateral legs. TECHNIQUE: Venous ultrasound of the left and right leg was performed from the inguinal ligament to the proximal calf. Real-time, color Doppler and spectral tracing, compression and augmentation techniques were us ed. FINDINGS: RIGHT LEG: There is normal compressibility of the deep venous system from the inguinal region to the proximal ca lf. No echogenic clot is seen in the lumen of the common femoral, femoral, popliteal, and posterior tibial veins. There is a normal response of the venous system to proximal and distal augmentation an d respiration. LEFT LEG: Occlusive superficial thrombus seen in the left greater saphenous vein. There is normal compressibili ty of the deep venous system from the inguinal region to the proximal calf. No echogenic clot is see n in the lumen of the common femoral, femoral, popliteal, and posterior tibial veins. There is a nor mal response of the venous system to proximal and distal augmentation and respiration. CONCLUSION: Superficial venous thrombosis of the left lower extremity (left greater saphenous vein). No DVT of ei ther lower chroni. Santana Eric MD on June 08, 2017 at 12:33 Board Certified Radiologist. This report was verified electronically.
[2017-06-08] MEDS ORDERED: POTASSIUM CHLORIDE 20 MEQ PWD PACKET NG ONE (13:00)
--- NOTE | 2017-06-08 15:53 | RADRPT ---
EXAM DATE/TIME: 06/08/2017 14:49 INDICATIONS : Pleural effusion. DEVICE(S): 1.) 6 Fr [id number] FLUID: Total volume of 225 cc of clear, red fluid was removed. Fluid was sent for laboratory ordered studies. MEDICAL HISTORY : Diabetes mellitus type 2. Hypertension. SURGICAL HISTORY : section. ENCOUNTER: Initial ACUITY: 1 day PAIN SCORE: Non-responsive LOCATION: Right chest PROCEDURE: Right thoracentesis. The site was prepped in sterile fashion. Full sterile technique was used, including cap, mask, steri le gloves and gown and a large sterile sheet. Hand hygiene and 2% chlorhexidine and/or betadine/alco hol prep was utilized per protocol for cutaneous antisepsis. The skin and subcutaneous tissues were infiltrated with local anesthetic solution. Using automated exposure control and adjustment of the mA and/or kV according to patient size, radiation dose was kept as low as reasonably achievable to obta in optimal diagnostic quality images. DICOM format image data is available electronically for review and comparison. With the patient supine on the CT table, induction coordination power engineer images were obtained through the chest demonstrating t he right pleural fluid collection. Most of the chest x-ray opacity axial represents right lower lobe consolidation. Dermatotomy was made and the prescribed catheter was advanced into the pleural fluid. The pleural fluid as above was removed from the hemithorax. Post procedural scan demonstrated compl ete resolution of the pleural fluid with no pneumothorax. The patient tolerated the procedure well and there were no complications. EKG and oximetry remained s table throughout the procedure. The patient was sent to recovery in stable condition. CONCLUSION: Uncomplicated CT-guided right thoracentesis with removal of 225 cc of fluid. Please note that most of the chest x-ray opacity actually represents right lower lobe airspace consolidation. Santana Shirley MD on June 08, 2017 at 15:50 Board Certified Radiologist. This report was verified electronically. ? RADIOLOGY CONSULTATION REPORT Ordering MD: EDA CROTF M.D. MR#: [id number] : 51 Copy To: ERIC COLON MD [facility] Age: 66 NAYE BOWERS M.D. Bed: [facility] SHAUN CRAIG June 08, 2017 14:49 CT GUIDED RIGHT THORACENTESIS RADIOLOGY CONSULTATION REPORT Ordering MD: EDA CROFT M.D. MR#: [id number] : 51 Copy To: ERIC COLON MD Loc: [facility] Age: 66 NAYE BOWERS M.D. Bed: [facility] SHAUN CRAIG June 08, 2017 14:49 CT GUIDED RIGHT THORACENTESIS
--- NOTE | 2017-06-08 16:38 | MG ---
cc: VERITO GOODMAN Lab No: [id number] Date: 06/08/17 Age: 66 Sex: F Race: TECHNIQUE 17 channel EEG. DESCRIPTION Background rhythm reveal moderate slowing in the theta frequency at about 5-6 Hz, amplitude 20-30 microvolts. There is some muscle artifact present, occasionally there is delta slowing but the majority of the tracing is theta. No lateralizing features are seen. There are no epileptiform discharges. Photic results in a poor driving response. INTERPRETATION Abnormal study consistent with a moderate encephalopathy. MD KAYLEY Demarco/KEANU /3:02 PM /4:39 PM
[2017-06-08 16:57] LABS: TOTAL PROTEIN,PLEURAL FLUID 2.6 GM/DL
[2017-06-08] MEDS: MAGNESIUM SULFATE INJ 2 GM in SODIUM CHLORIDE 0.9% INJ 96 ML IV PRN (17:47)
[2017-06-08 17:56] LABS: PLEURAL FLUID LYMPHS 72 %
--- NOTE | 2017-06-08 18:14 | HHI.PR ---
Subjective Remarks 66 YOObese WF with Hypercapnoea, Cellulitis, Bactremia Intubated Off sedation Tolerated CPAP for 6 hr Follows simple commands No Fever Has right lung consolidation Objective Vital Signs Vital Signs Date Time Temp Pulse Resp B/P (MAP) Pulse Ox O2 Delivery O2 Flow Rate FiO2 06/08/17 18:00 97 06/08/17 17:00 98 06/08/17 16:00 35 06/08/17 16:00 96 06/08/17 16:00 100.7 96 24 116/57 (76) 95 06/08/17 15:45 98 100 06/08/17 15:40 95 45 06/08/17 15:30 102 36 127/58 (81) 94 06/08/17 15:30 102 06/08/17 14:00 100 17 157/71 (99) 92 06/08/17 14:00 100 06/08/17 13:08 92 45 06/08/17 13:00 96 25 147/65 (92) 90 06/08/17 13:00 96 06/08/17 12:00 95 06/08/17 12:00 35 06/08/17 12:00 100.4 96 19 135/63 (87) 91 06/08/17 11:00 96 06/08/17 11:00 96 28 109/50 (69) 93 06/08/17 10:00 100 06/08/17 10:00 100 28 122/59 (80) 92 06/08/17 09:00 98 31 125/61 (82) 92 06/08/17 09:00 99 06/08/17 08:30 45 06/08/17 08:00 35 06/08/17 08:00 97 06/08/17 08:00 100.8 97 27 123/56 (78) 92 06/08/17 07:42 92 40 06/08/17 07:00 96 22 128/60 (82) 91 06/08/17 06:00 93 06/08/17 04:01 92 40 06/08/17 04:00 40 06/08/17 04:00 95 06/08/17 04:00 98.9 95 19 139/63 (88) 92 06/08/17 02:00 95 06/08/17 01:16 93 40 06/08/17 00:00 92 06/08/17 00:00 40 06/08/17 00:00 98.7 92 19 123/58 (79) 91 06/07/17 22:02 92 40 06/07/17 22:00 92 06/07/17 20:00 99.5 95 22 143/63 (89) 94 06/07/17 20:00 95 06/07/17 20:00 40 06/07/17 19:54 94 40 I/O 06/07/17 06/07/17 06/07/17 06/08/17 06/08/17 06/08/17 07:00 15:00 23:00 07:00 15:00 23:00 Intake Total 1271.5 ml 100 ml 1228 ml 1310 ml 257.5 ml 954 ml Output Total 3475 ml 1750 ml 2550 ml 2200 ml Balance -2203.5 ml 100 ml -522 ml -1240 ml 257.5 ml -1246 ml IV Total 184.5 ml 100 ml 257.5 ml 200 ml Tube Feeding 487 ml 628 ml 710 ml 454 ml Other 600 ml 600 ml 600 ml 300 ml Output Urine Total 3475 ml 1650 ml 2350 ml 2200 ml Stool Total 100 ml 200 ml 0 ml Result Diagram: 06/08/1743406/08/17434 Objective Remarks GENERAL: Morbidly obese WF, mild sob SKIN: Warm and dry. HEAD: Normocephalic. EYES: No scleral icterus. No injection or drainage. NECK: Supple, trachea midline. No JVD or lymphadenopathy. CARDIOVASCULAR: Regular rate and rhythm without murmurs, gallops, or rubs. RESPIRATORY: Breath sounds equal bilaterally. No accessory muscle use. GASTROINTESTINAL: Abdomen soft, non-tender, nondistended. MUSCULOSKELETAL: No cyanosis, or edema. has swelling and redness of legs BACK: Nontender without obvious deformity. No CVA tenderness. A/P Assessment and Plan Hypercapnoic Resp Insuff CHE or Obesity Hypoventilation synd Cellulitis legs Bactremia back pain Sepsis Encephalopathy PLAN: Vent Support Aerosol nebs Wean 02 to keep sat 88-92% Abx per ID Cont Dilantin Daily CPAP trial. DW , bronch in AM Dima Bang MD Jun 08, 2017 18:14
--- NOTE | 2017-06-08 19:26 | HHI.PR ---
Review/Management Diagnosis - Encephalopathy. Possible etiological causes are seizures/ infectious/ metabolic - Multiple ischemic strokes, b/l hemispheres - Critical Illness Polyneuropathy - Respiratory failure. - Bacteremia, group B strep. - JAMES. - Diabetes mellitus. Plan - Neuro checks q. one hourly. - Phenytoin 100 milligrams q. 8. - Keppra 750mg Q12h - Aspirin 81mg - Seizure precautions. - Obtain Dilantin level next a.m. - Hold narcotic medications. - Continue supportive medical therapy. - GI prophylaxis. - DVT prophylaxis, subcutaneous heparin - Discussed case with RN Diagnosis/Plan: Subjective Subjective Comments Patient off sedation More awake and alert Dilantin level is sub therapeutic [9.9] EEG with evidence of theta slowing, mild improvement compared to the previous EEG findings, however, still encephalopathic Running a low grade fever No family at bed side Active Medications Current Medications Medications (Trade) Dose Ordered Sig/Erasmo Route Start Time Stop Time Status Last Admin (Heparin Inj) 5,000 units Q8H SQ 05/20/17 22:00 Future hold 06/08/17 06:25 Miscellaneous Information 1 Q361D XX 05/20/17 22:30 (Chlorhexidine 2% Cloth) Taper DAILY@04 TOP 05/21/17 04:00 05/17/18 03:59 06/08/17 04:00 (Chlorhexidine 2% Cloth) 3 pack UNSCH PRN TOP 05/20/17 22:30 (Tylenol) 650 mg Q6H PRN PO 05/21/17 01:30 (Duoneb Neb) 1 ampule Q2HR NEB PRN NEB 05/21/17 05:45 06/07/17 20:00 (Glucagon Inj) 1 mg UNSCH PRN OTHER 05/22/17 07:30 (NS Flush) 2 ml UNSCH PRN IV FLUSH 05/24/17 12:15 06/04/17 20:38 (NS Flush) 2 ml BID IV FLUSH 05/24/17 21:00 06/08/17 08:49 (Narcan Inj) 0.4 mg UNSCH PRN IV PUSH 05/24/17 12:15 (May-Colace) 1 tab BID PO 05/24/17 21:00 06/08/17 08:48 (Milk Of Magnesia Liq) 30 ml Q12H PRN PO 05/24/17 12:15 10/25/17 13:45 (Senokot) 17.2 mg Q12H PRN PO 05/24/17 12:15 (Dulcolax Supp) 10 mg DAILY PRN RECTAL 05/24/17 12:15 (Lactulose Liq) 30 ml DAILY PRN PO 05/24/17 12:15 Ceftriaxone Sodium 2000 mg/ Sodium Chloride 100 ml @ 200 mls/hr Q12H IV 05/25/17 17:00 06/08/17 16:34 (Dilantin Inj) 100 mg Q8HR IV 05/26/17 22:00 06/08/17 14:10 (Mycostatin Powder) 1 applic Q12HR TOPICAL 05/30/17 10:00 06/08/17 08:49 (Tylenol Supp) 650 mg Q6H PRN RECTAL 05/30/17 13:15 05/30/17 14:06 (Ofirmev 1000 Mg/ 100 ml Inj) 1,000 mg Q6H PRN IV 05/31/17 16:30 05/31/17 16:51 Insulin Human Regular 100 units/ Sodium Chloride 100 ml @ 3 mls/hr TITRATE PRN IV 06/01/17 11:45 06/08/17 18:35 (D50w (Vial) Inj) 50 ml UNSCH PRN IV PUSH 06/01/17 11:45 Levetriacetam 750 mg/Sodium Chloride 107.5 ml @ 430 mls/hr Q12HR IV 06/01/17 21:00 06/08/17 08:48 (Mag-Ox) 800 mg UNSCH PRN PO 06/03/17 11:00 Magnesium Sulfate 4 gm/Sodium Chloride 100 ml @ 50 mls/hr UNSCH PRN IV 06/03/17 11:00 Magnesium Sulfate 2 gm/Sodium Chloride 100 ml @ 50 mls/hr UNSCH PRN IV 06/03/17 11:00 06/08/17 17:47 Potassium Chloride 100 ml @ 50 mls/hr Q2H PRN IV 06/03/17 11:00 06/08/17 13:15 Potassium Chloride 100 ml @ 50 mls/hr Q2H PRN IV 06/03/17 11:00 Potassium Chloride 100 ml @ 50 mls/hr Q2H PRN IV 06/03/17 11:00 06/04/17 06:36 Potassium Chloride 100 ml @ 25 mls/hr UNSCH PRN IV 06/03/17 11:00 06/06/17 16:00 (K-Phos) 2,000 mg Q4H PRN PO 06/03/17 11:00 (K-Phos) 2,000 mg UNSCH PRN PO/TUBE 06/03/17 11:00 Potassium Phosphate 30 mmol/ Sodium Chloride 260 ml @ 42 mls/hr UNSCH PRN IV 06/03/17 11:00 06/07/17 11:08 Sodium Phosphate 30 mmol/Sodium Chloride 250 ml @ 42 mls/hr UNSCH PRN IV 06/03/17 11:00 06/05/17 11:06 (Aspirin) 325 mg DAILY PO 06/03/17 11:00 06/08/17 08:48 (Symmetrel Liq) 200 mg BID@07,12 PO 06/03/17 12:00 06/08/17 13:28 (Pepcid Inj) 20 mg Q12HR IV PUSH 06/05/17 21:00 06/08/17 08:49 (Provigil) 200 mg DAILY PO 06/06/17 09:00 06/08/17 08:48 (Trandate Inj) 10 mg Q4H PRN IV PUSH 06/05/17 23:00 06/06/17 16:51 (Apresoline Inj) 20 mg Q4H PRN IV PUSH 06/05/17 23:00 (Lasix Inj) 40 mg Q6H IV PUSH 06/06/17 11:00 06/08/17 18:20 (Free Water) VOLUME: 300 ML Q6HR G-TUBE 06/06/17 11:00 06/08/17 18:00 (Coreg) 6.25 mg Q12HR PO 06/06/17 11:30 06/08/17 08:48 (Levemir Inj) 80 units Q12HR SQ 06/07/17 21:00 06/08/17 08:49 (Synthroid Inj) 25 mcg DAILY@06 IV PUSH 06/08/17 10:00 06/08/17 11:00 (Flagyl) 500 mg Q8H PO 06/08/17 11:00 06/08/17 18:19 (Diflucan) 100 mg DAILY PO 06/09/17 09:00 Albumin Human 50 ml @ 60 mls/hr Q12H IV 06/08/17 11:00 06/10/17 10:59 06/08/17 11:01 Allergies Allergies Coded Allergies No Known Allergies ([id number]/21/17) Review of Systems All other ROS: ROS reviewed as documented in chart Exam I&O / VS 06/08/17 06/08/17 06/09/17 15:00 23:00 07:00 Intake Total 257.5 ml 1054 ml Output Total 2200 ml Balance 257.5 ml -1146 ml IV Total 257.5 ml 300 ml Tube Feeding 454 ml Other 300 ml Output Urine Total 2200 ml Stool Total 0 ml Vital Signs Date Time Temp Pulse Resp B/P (MAP) Pulse Ox O2 Delivery O2 Flow Rate FiO2 06/08/17 18:00 97 06/08/17 17:00 98 06/08/17 16:00 35 06/08/17 16:00 96 06/08/17 16:00 100.7 96 24 116/57 (76) 95 06/08/17 15:45 98 100 06/08/17 15:40 95 45 06/08/17 15:30 102 36 127/58 (81) 94 06/08/17 15:30 102 06/08/17 14:00 100 17 157/71 (99) 92 06/08/17 14:00 100 06/08/17 13:08 92 45 06/08/17 13:00 96 25 147/65 (92) 90 06/08/17 13:00 96 06/08/17 12:00 95 06/08/17 12:00 35 06/08/17 12:00 100.4 96 19 135/63 (87) 91 06/08/17 11:00 96 06/08/17 11:00 96 28 109/50 (69) 93 06/08/17 10:00 100 06/08/17 10:00 100 28 122/59 (80) 92 06/08/17 09:00 98 31 125/61 (82) 92 06/08/17 09:00 99 06/08/17 08:30 45 06/08/17 08:00 35 06/08/17 08:00 97 06/08/17 08:00 100.8 97 27 123/56 (78) 92 06/08/17 07:42 92 40 06/08/17 07:00 96 22 128/60 (82) 91 06/08/17 06:00 93 06/08/17 04:01 92 40 06/08/17 04:00 40 06/08/17 04:00 95 06/08/17 04:00 98.9 95 19 139/63 (88) 92 06/08/17 02:00 95 06/08/17 01:16 93 40 06/08/17 00:00 92 06/08/17 00:00 40 06/08/17 00:00 98.7 92 19 123/58 (79) 91 06/07/17 22:02 92 40 06/07/17 22:00 92 06/07/17 20:00 99.5 95 22 143/63 (89) 94 06/07/17 20:00 95 06/07/17 20:00 40 06/07/17 19:54 94 40 Exam Comments GENERAL: Morbidly obese, lethargic. HEENT: Atraumatic, normocephalic. NECK: Supple. No signs of meningeal irritation. CARDIOVASCULAR: Regular rate and rhythm. RESPIRATORY: Clear to auscultation. No wheezes. GASTROINTESTINAL: Soft, nontender. MUSCULOSKELETAL: No cyanosis, edema or clubbing. NEUROLOGIC EXAMINATION: Intubated, off sedation, Pupils 3 mm bilaterally equally reacting to light. No facial asymmetry. Reflexes 1+ bilateral and symmetrical. B/l Babinski reflex. Awake, opens eyes to commands, tracks , moves extremities weakly, withdraws b/l LE to stimulation, sluggish reflexes throughout. Objective Micro and Labs Laboratory Tests Test 06/08/17 04:35 06/08/17 10:40 06/08/17 15:08 White Blood Count 15.4 Red Blood Count 3.44 Hemoglobin 9.8 Hematocrit 30.6 Mean Corpuscular Volume 88.9 Mean Corpuscular Hemoglobin 28.4 Mean Corpuscular Hemoglobin Concent 31.9 Red Cell Distribution Width 16.4 Platelet Count 190 Mean Platelet Volume 10.6 Neutrophils (%) (Auto) 64.0 Lymphocytes (%) (Auto) 18.4 Monocytes (%) (Auto) 13.0 Eosinophils (%) (Auto) 3.1 Basophils (%) (Auto) 1.5 Neutrophils # (Auto) 9.8 Lymphocytes # (Auto) 2.8 Monocytes # (Auto) 2.0 Eosinophils # (Auto) 0.5 Basophils # (Auto) 0.2 CBC Comment AUTO DIFF Differential Total Cells Counted 100 Neutrophils % (Manual) 36 Band Neutrophils % 17 Lymphocytes % 13 Monocytes % 15 Eosinophils % 3 Neutrophils # (Manual) 10.6 Metamyelocytes 2 Myelocytes 8 Promyelocytes 6 Nucleated Red Blood Cells 6 Differential Comment FINAL DIFF MANUAL Toxic Granulation 1+ Platelet Estimate NORMAL Platelet Morphology Comment ENLARGED Blood Urea Nitrogen 13 Creatinine 0.85 Random Glucose 207 Total Protein 6.0 Albumin 1.4 Calcium Level 8.5 Phosphorus Level 2.5 Magnesium Level 1.5 Alkaline Phosphatase 393 Aspartate Amino Transf (AST/SGOT) 65 Alanine Aminotransferase (ALT/SGPT) 65 Total Bilirubin 0.5 Sodium Level 142 Potassium Level 3.2 Chloride Level 103 Carbon Dioxide Level 30.9 Anion Gap 8 Estimat Glomerular Filtration Rate 67 Phenytoin (Dilantin) Level 9.9 Urine Color YELLOW Urine Turbidity CLOUDY Urine pH 5.0 Urine Specific [place] 1.017 Urine Protein TRACE Urine Glucose (UA) NEG Urine Ketones NEG Urine Occult Blood MOD Urine Nitrite NEG Urine Bilirubin NEG Urine Urobilinogen LESS THAN 2.0 Urine Leukocyte Esterase MOD Urine RBC Urine WBC 34 Urine Squamous Epithelial Cells 2 Urine Amorphous Sediment RARE Urine Bacteria RARE Urine Mucus FEW Urine Yeast (Budding) MANY Microscopic Urinalysis Comment CATH-CULTURE IND Pleural Fluid pH 8.0 Pleural Fluid WBC 469 Pleural Fluid RBC 12532 Pleural Fluid Neutrophils 15 Pleural Fluid Lymphocytes 72 Pleural Fluid Monocytes 8 Pleural Fluid Eosinophils 1 Pleural Fluid Basophils 2 Pleural Fluid Mesothelial Cells 2 Pleural Fluid Comment Pleural Fluid Total Protein 2.6 Pleural Fluid LDH 395 Pleural Fluid Glucose 212 Date/Time Source Procedure Growth Status 06/08/17 13:05 Blood Peripheral Aerobic Blood Culture Pending Received 06/08/17 13:05 Blood Peripheral Anaerobic Blood Culture Pending Received 06/08/17 15:08 Fluid Pleural Fluid Fungal Smear Pending Received 06/08/17 15:08 Fluid Pleural Fluid Fungal Culture Pending Received 06/08/17 10:15 Sputum Endotracheal Gram Stain - Final Resulted 06/08/17 10:15 Sputum Endotracheal Sputum Culture Pending Resulted 06/08/17 10:40 Urine Catheterized Urine Urine Culture Pending Received Juan Pablo Salas MD Jun 08, 2017 19:26
[2017-06-09] VITALS (21 sets, daily range): BP systolic 118–154; BP diastolic 56–68; PULSE 92–105; RESP 16–26; TEMP 98.4–100.7; O2SAT 90–98
[2017-06-09] MEDS: INSULIN REGULAR (IV INFUSION) 100 UNITS in SODIUM CHLORIDE 0.9% INJ 99 ML IV PRN ×3 (03:00→22:04)
[2017-06-09] MEDS: CHLORHEXIDINE GLUCONATE 2 % 1 PACK (2 CLOTHS) TOP SCH (04:00)
[2017-06-09] MEDS: metroNIDAZOLE 500 MG TAB PO SCH ×3 (04:34→18:35)
[2017-06-09] MEDS: FUROSEMIDE 40 MG/4 ML VIAL IV PUSH SCH ×3 (04:39→18:34)
[2017-06-09] MEDS: cefTRIAXone INJ 2,000 MG in SODIUM CHLORIDE 0.9% INJ 100 ML IV SCH ×2 (04:40→18:34)
[2017-06-09 05:10] LABS: HEMATOCRIT 33.8 % (35.0-46.0); MEAN CELL VOLUME 90.8 FL (80.0-100.0); MEAN CORPUSCULAR HEMOGLOBIN 28.9 PG (27.0-34.0); MEAN CORPUSCULAR HGB CONC 31.9 % (32.0-36.0); PLATELET COUNT 203 TH/MM3 (150-450); RED BLOOD COUNT 3.72 MIL/MM3 (4.00-5.30); RED CELL DISTRIBUTION WIDTH 16.9 % (11.6-17.2); WHITE BLOOD COUNT 14.8 TH/MM3 (4.0-11.0)
[2017-06-09 05:16] LABS: HEMO FLAGS AUTO DIFF
[2017-06-09] MEDS: FREE WATER G-TUBE SCH ×4 (05:24→23:09)
[2017-06-09] MEDS: PHENYTOIN INJ 100 MG/2 ML VIAL IV SCH ×3 (05:24→21:16)
[2017-06-09] MEDS: LEVOTHYROXINE SODIUM 100 MCG VIAL IV PUSH SCH (05:24)
[2017-06-09] MEDS: AMANTADINE HCL SOLN 100 MG/10 ML UDC PO SCH ×2 (05:24→10:48)
[2017-06-09] MEDS: HEPARIN SODIUM - SQ 10,000 UNITS/ML VIAL SQ SCH ×3 (05:25→21:15)
[2017-06-09 05:43] LABS: ALKALINE PHOSPHATASE 482 U/L (45-117); ALT (GPT) 58 U/L (10-53); ANION GAP 7 MEQ/L (5-15); AST (GOT) 73 U/L (15-37); BICARBONATE 35.4 MEQ/L (21.0-32.0); BLOOD UREA NITROGEN 14 MG/DL (7-18); CHLORIDE 100 MEQ/L (98-107); GLOMERULAR FILTRATION RATE 59 ML/MIN (>89); MAGNESIUM 1.7 MG/DL (1.5-2.5); POTASSIUM 3.8 MEQ/L (3.5-5.1); SODIUM (NA) 142 MEQ/L (136-145); TOTAL BILIRUBIN ADULT 0.5 MG/DL (0.2-1.0)
[2017-06-09 07:15] LABS: BANDS 21 % (0-6); CORRECTED NUCLEATED RBC 8 /100 WBC (0-0); EOSINOPHILS 4 % (0-4); METAMYELOCYTES 11 % (0-1); MYELOCYTES 7 % (0-0); NEUTROPHIL # MANUAL DIFF 13.3 TH/MM3 (1.8-7.7); POLYS (SEG NEUTROPHILS) 51 % (16-70); WBC DIFF SAMPLE 100
[2017-06-09 07:16] LABS: PLATELET ESTIMATE SMEAR NORMAL (NORMAL); PLATELET MORPHOLOGY ENLARGED (NORMAL); SCAN/DIFF FINAL DIFF MANUAL
[2017-06-09] MEDS: ASPIRIN 325 MG TAB PO SCH (07:58)
[2017-06-09] MEDS: DOCUSATE SODIUM 50 MG/SENNA 8.6 MG TAB PO SCH ×2 (07:58→20:33)
[2017-06-09] MEDS: INSULIN DETEMIR 100 UNITS/ML VIAL SQ SCH ×2 (07:58→20:32)
[2017-06-09] MEDS: CARVEDILOL 6.25 MG TAB PO SCH ×2 (07:58→20:33)
[2017-06-09] MEDS: MODAFINIL 200 MG TAB PO SCH (07:58)
[2017-06-09] MEDS: FLUCONAZOLE 100 MG TAB PO SCH (07:58)
[2017-06-09] MEDS: NYSTATIN 100,000 U/GM PWD 15 GM BTL TOPICAL SCH ×2 (07:58→20:36)
[2017-06-09] MEDS: FAMOTIDINE 20 MG/2 ML VIAL IV PUSH SCH ×2 (08:12→20:41)
[2017-06-09] MEDS: SODIUM CHLORIDE 0.9% FLUSH 10 ML FLUSH IV FLUSH SCH ×2 (08:12→20:34)
[2017-06-09] MEDS: levETIRAcetam INJ 750 MG in SODIUM CHLORIDE 0.9% INJ 100 ML IV SCH ×2 (08:12→20:41)
[2017-06-09] MEDS: CEFEPIME INJ 2,000 MG in SODIUM CHLORIDE 0.9% INJ 100 ML IV SCH ×3 (08:42→23:09)
[2017-06-09] MEDS: LINEZOLID 600 MG PREMIX 300 ML IV SCH ×2 (09:34→20:33)
[2017-06-09] MEDS ORDERED: MIDAZOLAM HCL 5 MG/ML VIAL (1 ML) IV ONE (10:00)
[2017-06-09] MEDS ORDERED: ROCURONIUM INJ 50 MG/5 ML VIAL IV ONE (10:00)
[2017-06-09] MEDS ORDERED: fentaNYL CITRATE 250 MCG/5 ML AMP IV PUSH ONE (10:00)
--- NOTE | 2017-06-09 10:04 | RADRPT ---
EXAM DATE/TIME: 06/09/2017 09:30 [place] COMPARISON: CHEST SINGLE AP, June 08, 2017, 4:23. INDICATIONS : Short of breath. MEDICAL HISTORY : Hypertension. Dyspnea. Diabetes. Chronic lower back pain. SURGICAL HISTORY : section. ENCOUNTER: Subsequent ACUITY: 2 weeks PAIN SCORE: Non-responsive. LOCATION: Bilateral chest FINDINGS: Nasogastric tube is across the GE junction. The heart remains enlarged. The pulmonary vascularity i s normalizing. Stable bibasilar parenchymal changes persists. CONCLUSION: Interval improvement with less interstitial edema. Mike Davis MD FACR on June 09, 2017 at 10:02 Board Certified Radiologist. This report was verified electronically.
--- NOTE | 2017-06-09 10:38 | PD.PROCEDR ---
Procedure Note Procedure Procedure DATE: 06/09/2017 Fiberoptic bronchoscopy INDICATION: Bilateral lower lobe pneumonia, diagnostic and therapeutic CONSENT Informed consent for procedure was obtained from . DESCRIPTION OF THE PROCEDURE The patient was placed in supine position. Patient was placed on PCV ventilation at 100% FiO2. Patient was sedated with Fentanyl total 250 mg IV, 5 mg midazolam IV 1 and rocuronium 100 mg IV 1. I entered the 8.0 ET tube with a flexible bronchoscope. There was significant inflammation in the distal bronchus beyond the ET tube and also in the large bronchi. Subsegmental bronchi in both sides were inflamed and friable, easily bleeding. Moderate amount of thick brown secretions suctioned out from right lower lobe and BAL specimen collected. There was also moderate amount of thick white blood-tinged secretions the left lower lobe as well. Other subsegmental bronchi was devoid of major secretions. Oxygen saturations above 94% at all times. BAL send for culture STAT chest x-ray pending at time Dex Dillon MD Jun 09, 2017 10:38
[2017-06-09] MEDS: ALBUMIN 25% INJ 50 ML IV SCH ×2 (10:48→22:10)
--- NOTE | 2017-06-09 10:53 | HHI.CCPN ---
Subjective Remarks/Hospital Course 66-year-old female presents confused and lethargic. Patient reportedly was recently seen today at an urgent care and received an injection for low back pain. Patient here denies headaches, chest pain or shortness of breath, abdominal pain or extremity pain. Patient does complain of low back pain. at bedside states that they're visiting from out of state for the past 3 months and will be returning back to their home state in a week. reports patient has chronic low back pain but this exacerbated over the last 24 hours starting yesterday morning. Patient was seen earlier today by her chiropractor for an adjustment and then was referred to an urgent care. Patient reportedly had a fever at the chiropractor's office and felt cold and clammy. At the urgent care patient was evaluated and reportedly had an injection of a nonsteroidal medication as she is diabetic and he did not want to give her a steroid injection. Patient went home about 1:00 PM she was drowsy so sat down in a chair and fell asleep according to the . He tried to awaken her at 4:30 and noticed that she was confusional and lethargic. He attempted to continue to awaken her over the next 2-3 hours and because she was not improving decided finally to call EMS to transport her to the emergency room. Patient and spouse denied any recent injury or fall. Patient was ambulatory this morning but this evening has difficulty elevating her lower extremities as well as she was generally extremely weak. 05/21 Patient is on BIPAP 12/5 with 45% FIO2. Afebrile. Awake. Renal function is improving with Cr: 1.87 from 2.74. 05/22 No events overnight. Patient is more awake and alert off BIPAP. Renal function is improving with Cr: 1.07 from 1.87. delayed note entry. consulted and seen at ~1500. RECONSULT NOTE: 05/30: reconsulted for worsening hypoxemia. now on 6L facemask. please refer to prior consult note for detailed medical history. In brief, 66yF lethargic female, back pain after injection, ? discitis/osteo, on abx for group B strep, worsening fever, tachycardia, tachypnea, o2 requirement to 6L facemask and RR up to 40s. patient unable to provide additional history but does appear in distress. 05/31: Patient remains encephalopathic, on high flow O2 via nasal cannula, this morning was on 60 L/m 55% FiO2. Subsequently has dropped to 30 L/m to extubate percent FiO2. Given 80 mg IV Lasix with no response. Subsequently given Bumex 2 mg IV push and started on Bumex drip at 1 mg/h to attempt to diurese in an effort to improve respiratory status however has not had any increase in urine output with Bumex drip. Creatinine came back elevated at 2.13. Suspect acute kidney injury/ATN which may be a reason for poor response to diuretics. She also spiked a temperature of 103 for which IV Ofirmev was ordered. 06/01: intubated overnight and hypotensive requiring vasopressors. now remains in shock on 2 vasopressors. bedside critical care echo demonstrates hyperdynamic LV with completely collapsed IVC. gave 2L bolus and started on mivf @ 100 cc/hr. still spiking fevers. discussed with Dr. Portillo and plan to repeat LP as well as cultures and imaging to look for source. clinically worse today. 06/02: off vasopressors. remains intubated and sedated, very encephalopathic. MRI with new punctate strokes. STEVEN being done today. also ? abscess in the pelvis of unknown origin, maybe contained diverticulitis? CT guided drainage. although some improvements in hemodynamics, no improvements in vent or encephalopathy. off pathway. 06/03: IR re-ct scan without any evidence of abdominal abscess. blood glucose still not controlled despite high dose algorithm. wbc downtrending. 06/04: wbc continues to downtrend. Cr improving as well. very hypokalemic despite aggressive replacement. blood glucose now < 200, but using high dose insulin drip and levemir. encephalopathy persists. 06/05: clinically improving. weakly following commands this morning. renal function improved. EEG negative for seizures. still too sleepy for safe extubation, but improved from yesterday. 06/06: continues to improve. still weakly following commands. failing SBT- on 20 of PSV with small tidal volumes and very tachypneic. slightly more awake, but still not awake enough for safe extubation. 06/07: Currently tolerating CPAP 15 PSV. Opens eyes tracks. Weekly follows commands on the lower extremity but delayed response. Remains off all sedation approximately 36 hours now. is at the bedside updated 06/08: Fever 100.8, WBC 15.4. But slightly more awake and focussed today. Wiggles toes to command with a delay. CXR shows moderate effusion- plan for CT guided thoracentesis today. D/W IR Dr. Quintanilla and ID Dr. Portillo 06/09: Appears to be becoming more septic. Tmax 101.8. WBC count 14.8 with 21 % bands. Zyvox and cefepime started by Dr. Portillo. Chest CT yesterday showed bilateral dense consolidation at the bases left more than right. Moderate to thick secretion on bronchoscopy and bilateral lower lobes today. Bilateral airways inflamed and friable. New fever, sepsis most likely secondary to healthcare associated pneumonia. s/p right thoracentesis with 225 ml of fluid removed, exudative by light criteria. Hemorrhagic fluid. EEG 06/08 showed moderate encephalopathy, no seizures Objective Vital Signs Date Time Temp Pulse Resp B/P (MAP) Pulse Ox O2 Delivery O2 Flow Rate FiO2 06/09/17 10:00 100 06/09/17 08:00 45 06/09/17 08:00 99.5 26 154/68 (96) 90 06/09/17 07:00 Nasal Cannula 5.00 Intake and Output 06/09/17 06/09/17 06/10/17 08:00 16:00 00:00 Intake Total 1370 ml 108 ml Output Total 2100 ml Balance -730 ml 108 ml Result Diagram: 06/09/17 0449 06/09/17 0449 Imaging Last Impressions Liver Ultrasound 05/21/17 0000 Signed Impressions: Service Date/Time: Sunday, May 21, 2017 10:32 - CONCLUSION: 1. Hepatic steatosis. 2. Gallstones 3. Limited evaluation of the right kidney. Santana Lamar MD Chest X-Ray 05/21/17 0000 Signed Impressions: Service Date/Time: Sunday, May 21, 2017 06:17 - CONCLUSION: 1. Limited suboptimal study with motion artifact. 2. No definite acute cardiac pulmonary disease. Austin Orellana MD Head CT 05/20/[id number] Signed Impressions: Service Date/Time: Saturday, May 20, 2017 19:55 - CONCLUSION: 1. No acute findings. Retention cyst right maxillary sinus. Jakob Scruggs MD Objective Remarks GENERAL: Patient is 66 yo lying in bed, intubated, off all sedation SKIN: Warm and dry. HEAD: Normocephalic. EYES: No scleral icterus. No injection or drainage. NECK: Trachea midline. large neck prevents accurate assessment of JVD. Central line removed CARDIOVASCULAR: Tachycardic rate, regular rhythm. RESPIRATORY: intubated, fio2 45%, coarse breath sounds bilaterally, slightly tachypneic. Tidal volumes 350-400 ml PSV 12/8/45% GASTROINTESTINAL: Abdomen morbidly obese, soft, non-tender, nondistended. MUSCULOSKELETAL: No cyanosis, or edema. Neuro: Opens eyes to command tracks. 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 toxic/metabolic, hypoxic respiratory failure, sepsis. some improvements in mental status. still too somnolent for safe extubation. Respiratory failure persists. s/p right thoracentesis. will continue forced diuresis. continue daily SBTs while we optimize pulmonary function. Now with new sepsis, most likely from HCAP Plan: Neuro: Metabolic Encephalopathy- slight improvement. Acute CVA, multifocal areas of ischemia Possible [employer]ICE ORDER CLERK Infection Discitis - RASS goal 0. - DCd fentanyl. Off all sedating medications. - Received Versed fentanyl and rocuronium today for bronchoscopy 06/09/17 - Continue amantadine and, modafinil for wakefulness. - frequent neuro checks - aspirin - Prev TSH borderline high, T4 low. Started Synthroid 25 mcg IV daily 06/08/17. - Ammonia normal. B12 normal - EEG 06/08 moderate encephalopathy, carotid ultrasound no significant stenosis Resp: Acute hypoxic and hypercarbic respiratory failure - persistent. Right pleural effusion Bibasilar infiltrates/HCAP - Bronchoscopy today showed inflamed airways, thick secretion bilateral lower lobes. - Zyvox and cefepime started by Dr. Portillo ID - vent bundle, hob at 30 degrees, nebs. Up to chair today - wean fio2 for spo2 > 90% - forced diuresis, lasix 40mg iv q6h -reduce to q8 - daily SBTs. 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 - Right thoracentesis with fluid studies Renal: Acute kidney injury- resolved - continue Reid - forced diuresis with Lasix goal net -2L/24h. - daily bmp FEN/GI: Shock liver - persistent Morbid obesity Hypokalemia Volume overload Acute protein calorie malnutrition- moderate - Glucerna tube feeds - ICU electrolyte protocol - daily bmp - trend LFTs Heme/ID: New Fever leukocytosis, Sepsis HCAP Septic Shock - resolved Discitis Possible healthcare associated aspiration pneumonia Strep bacteremia (recent blood cultures negative) - abx per ID Dr. Portillo. Started on Zyvox cefepime today 06/09/17, continue ceftriaxone for discitis - Bronch with BAL today 06/09/17 - cultures NGTD except initial 4/4 bottles with group B strp - There is clinical concern for endocarditis (4/4 bottle strep, brain emboli delfino though STEVEN negative) - if discitis is truly the source and no improvements, could consider disc biopsy in the future. - F/U Send pleural fluid studies and BAL Endocrine: Severe hyperglycemia Relative Adrenal Insufficiency Possible hyperthyroidism - steroid tapered, now DCd - severe hyperglycemia despite high dose insulin drip - continue insulin drip Algorithm #4. - Levemir to 80 units SQ q12h - Started on levothyroxine 25 g IV daily Prophylaxis: - pepcid - SCDs - SQH Lines: - Reid: keep while active diuresis. CCT 35 -critically ill again, new sepsis most likely from healthcare associated pneumonia. ABX modified. s/p diagnostic and therapeutic bronchoscopy Dex Dillon MD Jun 09, 2017 10:53
--- NOTE | 2017-06-09 11:20 | RADRPT ---
EXAM DATE/TIME: 06/09/2017 10:51 [facility] COMPARISON: CT GUIDED THORACENTESIS RIGHT, June 08, 2017, 14:49. CHEST SINGLE AP, June 09, 2017, 9:30. INDICATIONS : Post bronchoscopy. MEDICAL HISTORY : Hypertension. Dyspnea. Diabetes. Chronic lower back pain. SURGICAL HISTORY : section. ENCOUNTER: Subsequent ACUITY: 1 day PAIN SCORE: Non-responsive. LOCATION: Bilateral chest FINDINGS: Portable AP view of the chest demonstrates cardiac silhouette size at the upper limits for normal. En dotracheal tube and nasogastric tube remain present. Lungs are underinflated with bibasilar opacity. No pneumothorax is identified. Bones demonstrate no acute finding. CONCLUSION: Underinflated examination with stable bibasilar opacities. The bibasilar opacities represent volume l oss and airspace consolidation. Santana Shirley MD on June 09, 2017 at 11:16 Board Certified Radiologist. This report was verified electronically.
[2017-06-09] MEDS ORDERED: FUROSEMIDE 20 MG/2 ML VIAL IV PUSH STA (11:55)
[2017-06-09] MEDS ORDERED: ALBUMIN 25% INJ 100 ML IV SCH (12:00)
[2017-06-09 12:06] LABS: BRONCHOALVEOLAR LAVAGE RBC 32950 /MM3; BRONCHOALVEOLAR LAVAGE RBC 3650 /MM3; BRONCHOALVEOLAR LAVAGE WBC 2250 /MM3; BRONCHOALVEOLAR LAVAGE WBC 800 /MM3; BRONCHOAVEOLAR EOSINOPHILS 2 %; BRONCHOAVEOLAR HISTIOCYTES 17 %; BRONCHOAVEOLAR LYMPHOCYTES 10 %; BRONCHOAVEOLAR LYMPHOCYTES 11 %; BRONCHOAVEOLAR NEUTROPHILS 71 %; BRONCHOAVEOLAR NEUTROPHILS 76 %
[2017-06-09 12:07] LABS: BRONCHOAVEOLAR EOSINOPHILS 1 %; BRONCHOAVEOLAR HISTIOCYTES 12 %
[2017-06-09] MEDS ORDERED: PHENYTOIN INJ 250 MG/5 ML VIAL IV ONE (13:30)
--- NOTE | 2017-06-09 13:58 | PD.WCN.NOT ---
Wound Consult Description: Patient seen for follow up of sacral, bilateral buttock and coccyx deep tissue injury that was opening to partial thickness skin loss Communicated with: SHANNON Villeda and Doctor Santana Recommendation: 1.Please cleanse skin tear to R lateral leg with normal saline and pat dry before applying ayaka thickness layer of santyl ointment later just over wound bed and cover with 4x4 gauze pads,and secured with rolled gauze and tape. Change dressing daily 2. Cleanse skin tear to L lateral leg with normal saline and apply single layer xeroform gauze just over wound bed and cover with dry 4x4 gauze pads, and secure with rolled gauze and tape. Change dressing daily or PRN if saturated or dislodged 3.Cleanse sacral unstageable pressure injury to sacrococcygeal area and bilateral buttock with soap and water and pat dry. Apply thick layer of Calazime barrier cream BID and PRN and leave open to air. Do not scrub Barrier cream from patient's skin when cleaning. Ok to leave some barrier cream in place and layer cream on patient. 4. Cleanse skin tear to R arm with normal saline and apply Optilock dressing over wound and secure with rolled gauze and tape. Change dressing every 3 days or PRN if saturated or dislodged. 3.Turn patient every 2 hours and PRN for comfort and to offload pressure from sacrococcygeal area. Additional Information: Patient seen for follow up of deep tissue injury that was opening to partial thickness skin loss on sacral, coccyx, and bilateral buttocks. Spoke with SHANNON Villeda before entering room, Per RN rectal bag was placed on patient and was removed recently to reveal worsening of pressure injury. Patient was turned with the total assistance of Christiana ORTEGA 5th [facility] and proposal manager writer to L side for wound assessment. Deep tissue injury previously noted opening to partial thickness skin loss has now opened to unstageable to sacrococcygeal, bilateral buttock area. Wound measures ~8cm x ~8cm x eschar .Deep tissue injury still intact between 2 and 4 o'clock. Periwound has improved. Still recommend Calazime barrier cream for now.Patient positioned off bottom to offload pressure from sacrococcygeal area. Skin tear to RLE is now full thickness with ~70% adherent yellow slough and 30% pink tissue. Cleansed wound with normal saline before applying dry gauze pad over wound bed and securing with rolled gauze and tape. Skin tear also noted to LLE is presenting with ~90% pink tissue and 10% yellow exudate. Wound is dry and was left wound open to air for now. SHANNON Villeda will apply dressing as recommended above. Large heavy draining skin tear to R upper arm is covered with absorbent Tegaderm. SHANNON Villeda will apply dressing as recommended above when supplies obtained. Palak Love [facility] Jun 09, 2017 13:58
[2017-06-09] MEDS ORDERED: PHENYTOIN IV ONE (14:15)
[2017-06-09] MEDS ORDERED: SODIUM CHLORIDE 0.9% IV ONE (14:15)
--- NOTE | 2017-06-09 17:40 | PD.PROCEDR ---
Central Line Procedure REASON FOR PROCEDURE Central venous access PROCEDURE PERFORMED Central line placement: RIJ central line CONSENT Informed consent for procedure was obtained from . The risks and benefits of the procedure were discussed to include but limited to bleeding, clot formation, infection, and even . ANESTHESIA Local injection of 1% Lidocaine DESCRIPTION OF THE PROCEDURE The patient was placed in supine, mild Trendelenburg position. The area was exposed and cleansed with ChloraPrep, times two. Large sterile drape was used to cover the patient, with the site exposed, under sterile conditions including cap, face mask, sterile gown, and sterile gloves. On single attempt, the introducer needle was inserted with negative pressure in syringe and venous flash was obtained. The guide wire was then advanced without any restriction and the needle was removed. The dilator was used without any complications. Using Seldinger technique the 20 cm triple lumen catheter was advanced over the guide wire to a depth of 17 centimeters. The guide wire was removed. All ports were aspirated with dark venous blood return and flushed easily with sterile saline. All ports were capped. Antibiotic disc was placed around central line at puncture site. The central line was secured to the skin with two interrupted 2.0 silk sutures. The area was bandaged with sterile see- through central line bandage. RADIOLOGICAL DATA Ultrasound guidance was used to locate RIJ COMPLICATIONS: No apparent complications ESTIMATED BLOOD LOSS: Less than 1 cc. Dex Dillon MD Jun 09, 2017 17:40
--- NOTE | 2017-06-09 18:05 | RADRPT ---
EXAM DATE/TIME: 06/09/2017 17:42 [facility] COMPARISON: CHEST SINGLE AP, June 09, 2017, 10:51. INDICATIONS : Evaluate for central line placement. MEDICAL HISTORY : Hypertension. Dyspnea. Diabetes. Chronic lower back pain. SURGICAL HISTORY : section. ENCOUNTER: Subsequent ACUITY: 1 day PAIN SCORE: Non-responsive. LOCATION: chest FINDINGS: A single portable frontal view the chest shows interval placement of a right-sided central line. Tip is projecting towards the cavoatrial junction. No pneumothorax. Endotracheal tube tip 4 cm from the c eduardo. Nasogastric tube courses off the inferior margin of the film. Cardiomegaly. Bibasilar pulmonar y consolidations. No discrete effusions. Appearance is stable. CONCLUSION: 1. Central line in good position without pneumothorax. 2. Unchanged basilar infiltrates. Ang Campbell Jr., MD on June 09, 2017 at 18:03 Board Certified Radiologist. This report was verified electronically.
--- NOTE | 2017-06-09 18:55 | HHI.PR ---
Subjective Remarks 66 YOObese WF with Hypercapnoea, Cellulitis, Bactremia Intubated Off sedation Tolerated CPAP for 6 hr Follows simple commands No Fever Had Bronch done by dr.john Amaya central line. Objective Vital Signs Vital Signs Date Time Temp Pulse Resp B/P (MAP) Pulse Ox O2 Delivery O2 Flow Rate FiO2 06/09/17 18:00 92 06/09/17 16:00 97 06/09/17 16:00 98.4 97 16 118/56 (76) 94 06/09/17 16:00 60 06/09/17 15:31 93 50 06/09/17 14:00 100 06/09/17 13:05 93 50 06/09/17 12:00 100.4 101 16 126/58 (80) 93 06/09/17 12:00 101 06/09/17 12:00 60 06/09/17 10:05 97 100 06/09/17 10:05 92 60 06/09/17 10:00 100 06/09/17 08:00 45 06/09/17 08:00 99.5 105 26 154/68 (96) 90 06/09/17 08:00 105 06/09/17 07:52 45 06/09/17 07:52 91 45 06/09/17 07:00 95 Nasal Cannula 5.00 06/09/17 06:00 103 06/09/17 04:07 94 45 06/09/17 04:00 45 06/09/17 04:00 100.3 102 18 129/60 (83) 93 06/09/17 04:00 102 06/09/17 02:00 102 06/09/17 00:30 93 45 06/09/17 00:00 100.7 103 18 125/58 (80) 94 06/09/17 00:00 103 06/09/17 00:00 45 06/08/17 22:00 101 06/08/17 20:00 101.8 101 24 131/58 (82) 92 06/08/17 20:00 101 06/08/17 20:00 40 06/08/17 19:38 95 45 I/O 06/08/17 06/08/17 06/08/17 06/09/17 06/09/17 06/09/17 07:00 15:00 23:00 07:00 15:00 23:00 Intake Total 1310 ml 257.5 ml 1261.5 ml 1370 ml 658 ml 915 ml Output Total 2550 ml 2200.0 ml 2100 ml 1250 ml Balance -1240 ml 257.5 ml -938.5 ml -730 ml 658 ml -335 ml IV Total 257.5 ml 507.5 ml 150 ml 658 ml 195 ml Tube Feeding 710 ml 454 ml 620 ml 120 ml Other 600 ml 300 ml 600 ml 600 ml Output Urine Total 2350 ml 2200 ml 1900 ml 1250 ml Stool Total 200 ml 0 ml 200 ml Tube Feeding Residual Discard 0 ml Result Diagram: 06/09/1744806/09/17448 Objective Remarks GENERAL: Morbidly obese WF, mild sob SKIN: Warm and dry. HEAD: Normocephalic. EYES: No scleral icterus. No injection or drainage. NECK: Supple, trachea midline. No JVD or lymphadenopathy. CARDIOVASCULAR: Regular rate and rhythm without murmurs, gallops, or rubs. RESPIRATORY: Breath sounds equal bilaterally. No accessory muscle use. GASTROINTESTINAL: Abdomen soft, non-tender, nondistended. MUSCULOSKELETAL: No cyanosis, or edema. has swelling and redness of legs BACK: Nontender without obvious deformity. No CVA tenderness. A/P Assessment and Plan Hypercapnoic Resp Insuff CHE or Obesity Hypoventilation synd Cellulitis legs Bactremia back pain Sepsis Encephalopathy PLAN: Vent Support Aerosol nebs Wean 02 to keep sat 88-92% Abx per ID Cont Dima Horne MD Jun 09, 2017 18:55
[2017-06-10] VITALS (18 sets, daily range): BP systolic 78–120; BP diastolic 55–59; PULSE 89–104; RESP 13–43; TEMP 98.7–102.1; O2SAT 92–98
[2017-06-10] MEDS: FUROSEMIDE 40 MG/4 ML VIAL IV PUSH SCH ×3 (03:29→17:50)
[2017-06-10] MEDS: metroNIDAZOLE 500 MG TAB PO SCH ×3 (03:29→17:51)
[2017-06-10] MEDS: CHLORHEXIDINE GLUCONATE 2 % 1 PACK (2 CLOTHS) TOP SCH (03:29)
[2017-06-10] MEDS: cefTRIAXone INJ 2,000 MG in SODIUM CHLORIDE 0.9% INJ 100 ML IV SCH ×2 (04:47→16:10)
[2017-06-10 04:52] LABS: BICARBONATE 33.7 MEQ/L (21.0-32.0); POTASSIUM 3.4 MEQ/L (3.5-5.1)
[2017-06-10 04:59] LABS: MEAN CELL VOLUME 91.1 FL (80.0-100.0); MEAN CORPUSCULAR HEMOGLOBIN 29.6 PG (27.0-34.0); MEAN CORPUSCULAR HGB CONC 32.5 % (32.0-36.0); PLATELET COUNT 172 TH/MM3 (150-450); RED BLOOD COUNT 3.18 MIL/MM3 (4.00-5.30); RED CELL DISTRIBUTION WIDTH 16.5 % (11.6-17.2); WHITE BLOOD COUNT 14.7 TH/MM3 (4.0-11.0)
[2017-06-10] MEDS: LEVOTHYROXINE SODIUM 100 MCG VIAL IV PUSH SCH (05:09)
[2017-06-10] MEDS: HEPARIN SODIUM - SQ 10,000 UNITS/ML VIAL SQ SCH ×3 (05:10→21:38)
[2017-06-10] MEDS: PHENYTOIN INJ 100 MG/2 ML VIAL IV SCH ×3 (05:10→21:37)
[2017-06-10] MEDS: FREE WATER G-TUBE SCH ×3 (05:10→17:50)
[2017-06-10 05:34] LABS: REVIEW FLAG FINAL
[2017-06-10] MEDS: AMANTADINE HCL SOLN 100 MG/10 ML UDC PO SCH ×2 (06:06→11:10)
[2017-06-10] MEDS: POTASSIUM CHLOR 40 MEQ PREMIX 100 ML IV PRN (06:46)
[2017-06-10] MEDS: CEFEPIME INJ 2,000 MG in SODIUM CHLORIDE 0.9% INJ 100 ML IV SCH ×2 (07:46→15:21)
[2017-06-10] MEDS: LINEZOLID 600 MG PREMIX 300 ML IV SCH ×2 (07:47→21:39)
[2017-06-10] MEDS: MODAFINIL 200 MG TAB PO SCH (07:49)
[2017-06-10] MEDS: INSULIN DETEMIR 100 UNITS/ML VIAL SQ SCH ×2 (07:49→21:00)
[2017-06-10] MEDS: DOCUSATE SODIUM 50 MG/SENNA 8.6 MG TAB PO SCH ×2 (07:49→21:38)
[2017-06-10] MEDS: CARVEDILOL 6.25 MG TAB PO SCH ×2 (07:49→21:38)
[2017-06-10] MEDS: FLUCONAZOLE 100 MG TAB PO SCH (07:49)
[2017-06-10] MEDS: ASPIRIN 325 MG TAB PO SCH (07:49)
[2017-06-10] MEDS: FAMOTIDINE 20 MG/2 ML VIAL IV PUSH SCH ×2 (07:49→21:38)
[2017-06-10] MEDS: SODIUM CHLORIDE 0.9% FLUSH 10 ML FLUSH IV FLUSH SCH ×2 (07:50→21:39)
[2017-06-10] MEDS: NYSTATIN 100,000 U/GM PWD 15 GM BTL TOPICAL SCH ×2 (07:50→21:39)
[2017-06-10] MEDS: ACETAMINOPHEN 1000 MG/100 ML VIAL IV PRN ×2 (08:05→22:35)
[2017-06-10] MEDS: COLLAGENASE OINT 30 GM TUBE TOPICAL SCH (08:05)
--- NOTE | 2017-06-10 08:19 | RADRPT ---
EXAM DATE/TIME: 06/10/2017 07:44 [facility] COMPARISON: CHEST SINGLE AP, June 09, 2017, 17:42. INDICATIONS : Shortness of breath MEDICAL HISTORY : Hypertension. Dyspnea. Diabetes. Chronic lower back pain. SURGICAL HISTORY : None. ENCOUNTER: Subsequent ACUITY: 3 weeks PAIN SCORE: Non-responsive. LOCATION: Bilateral chest FINDINGS: Slight improvement in aeration is noted. Persistent airspace disease is identified in the mid lungs a nd bases. The costophrenic angles remain blunted indicative of bilateral effusions. Heart is mildly enlarged. Supportive devices which include an endotracheal tube, nasogastric tube and right jugular central patricia ous catheter are in good position. CONCLUSION: Improving lung aeration otherwise stable chest. Persistent bibasilar airspace disease and bilateral effusions. Supportive devices in stable position. Wilian Richey MD on June 10, 2017 at 8:15 Board Certified Radiologist. This report was verified electronically.
--- NOTE | 2017-06-10 10:25 | HHI.CCPN ---
Subjective Remarks/Hospital Course 66-year-old female presents confused and lethargic. Patient reportedly was recently seen today at an urgent care and received an injection for low back pain. Patient here denies headaches, chest pain or shortness of breath, abdominal pain or extremity pain. Patient does complain of low back pain. at bedside states that they're visiting from out of state for the past 3 months and will be returning back to their home state in a week. reports patient has chronic low back pain but this exacerbated over the last 24 hours starting yesterday morning. Patient was seen earlier today by her chiropractor for an adjustment and then was referred to an urgent care. Patient reportedly had a fever at the chiropractor's office and felt cold and clammy. At the urgent care patient was evaluated and reportedly had an injection of a nonsteroidal medication as she is diabetic and he did not want to give her a steroid injection. Patient went home about 1:00 PM she was drowsy so sat down in a chair and fell asleep according to the . He tried to awaken her at 4:30 and noticed that she was confusional and lethargic. He attempted to continue to awaken her over the next 2-3 hours and because she was not improving decided finally to call EMS to transport her to the emergency room. Patient and spouse denied any recent injury or fall. Patient was ambulatory this morning but this evening has difficulty elevating her lower extremities as well as she was generally extremely weak. 05/21 Patient is on BIPAP 12/5 with 45% FIO2. Afebrile. Awake. Renal function is improving with Cr: 1.87 from 2.74. 05/22 No events overnight. Patient is more awake and alert off BIPAP. Renal function is improving with Cr: 1.07 from 1.87. delayed note entry. consulted and seen at ~1500. RECONSULT NOTE: 05/30: reconsulted for worsening hypoxemia. now on 6L facemask. please refer to prior consult note for detailed medical history. In brief, 66yF lethargic female, back pain after injection, ? discitis/osteo, on abx for group B strep, worsening fever, tachycardia, tachypnea, o2 requirement to 6L facemask and RR up to 40s. patient unable to provide additional history but does appear in distress. 05/31: Patient remains encephalopathic, on high flow O2 via nasal cannula, this morning was on 60 L/m 55% FiO2. Subsequently has dropped to 30 L/m to extubate percent FiO2. Given 80 mg IV Lasix with no response. Subsequently given Bumex 2 mg IV push and started on Bumex drip at 1 mg/h to attempt to diurese in an effort to improve respiratory status however has not had any increase in urine output with Bumex drip. Creatinine came back elevated at 2.13. Suspect acute kidney injury/ATN which may be a reason for poor response to diuretics. She also spiked a temperature of 103 for which IV Ofirmev was ordered. 06/01: intubated overnight and hypotensive requiring vasopressors. now remains in shock on 2 vasopressors. bedside critical care echo demonstrates hyperdynamic LV with completely collapsed IVC. gave 2L bolus and started on mivf @ 100 cc/hr. still spiking fevers. discussed with Dr. Portillo and plan to repeat LP as well as cultures and imaging to look for source. clinically worse today. 06/02: off vasopressors. remains intubated and sedated, very encephalopathic. MRI with new punctate strokes. STEVEN being done today. also ? abscess in the pelvis of unknown origin, maybe contained diverticulitis? CT guided drainage. although some improvements in hemodynamics, no improvements in vent or encephalopathy. off pathway. 06/03: IR re-ct scan without any evidence of abdominal abscess. blood glucose still not controlled despite high dose algorithm. wbc downtrending. 06/04: wbc continues to downtrend. Cr improving as well. very hypokalemic despite aggressive replacement. blood glucose now < 200, but using high dose insulin drip and levemir. encephalopathy persists. 06/05: clinically improving. weakly following commands this morning. renal function improved. EEG negative for seizures. still too sleepy for safe extubation, but improved from yesterday. 06/06: continues to improve. still weakly following commands. failing SBT- on 20 of PSV with small tidal volumes and very tachypneic. slightly more awake, but still not awake enough for safe extubation. 06/07: Currently tolerating CPAP 15 PSV. Opens eyes tracks. Weekly follows commands on the lower extremity but delayed response. Remains off all sedation approximately 36 hours now. is at the bedside updated 06/08: Fever 100.8, WBC 15.4. But slightly more awake and focussed today. Wiggles toes to command with a delay. CXR shows moderate effusion- plan for CT guided thoracentesis today. D/W IR Dr. Quintanilla and ID Dr. Portillo 06/09: Appears to be becoming more septic. Tmax 101.8. WBC count 14.8 with 21 % bands. Zyvox and cefepime started by Dr. Portillo. Chest CT yesterday showed bilateral dense consolidation at the bases left more than right. Moderate to thick secretion on bronchoscopy and bilateral lower lobes today. Bilateral airways inflamed and friable. New fever, sepsis most likely secondary to healthcare associated pneumonia. s/p right thoracentesis with 225 ml of fluid removed, exudative by light criteria. Hemorrhagic fluid. EEG 06/08 showed moderate encephalopathy, no seizures 06/10: Continues to spike fever up to 101.6. White count stable at 14.7. Had bronchoscopy with thick secretions removed from bilateral lower lobes yesterday. BAL studies are pending. Tolerate CPAP with high pressure support. Chest x-ray slightly improved Objective Vital Signs Date Time Temp Pulse Resp B/P (MAP) Pulse Ox O2 Delivery O2 Flow Rate FiO2 06/10/17 07:52 50 06/10/17 07:52 93 06/10/17 07:52 Ventilator 06/10/17 06:00 101 06/10/17 04:00 99.6 18 120/58 (78) 06/09/17 07:00 5.00 Intake and Output 06/10/17 06/10/17 06/11/17 08:00 16:00 00:00 Intake Total 1028 ml Output Total 1900 ml Balance -872 ml Result Diagram: 06/10/17 0350 06/10/17 0350 Imaging Last Impressions Liver Ultrasound 05/21/17 0000 Signed Impressions: Service Date/Time: Sunday, May 21, 2017 10:32 - CONCLUSION: 1. Hepatic steatosis. 2. Gallstones 3. Limited evaluation of the right kidney. Santana Lamar MD Chest X-Ray 10/22/17 0000 Signed Impressions: Service Date/Time: Sunday, May 21, 2017 06:17 - CONCLUSION: 1. Limited suboptimal study with motion artifact. 2. No definite acute cardiac pulmonary disease. Austin Orellana MD Head CT [id number]/20/[id number] Signed Impressions: Service Date/Time: Saturday, May 20, 2017 19:55 - CONCLUSION: 1. No acute findings. Retention cyst right maxillary sinus. Jakob Scruggs MD Objective Remarks GENERAL: Patient is 66 yo lying in bed, intubated, off all sedation SKIN: Warm and dry. HEAD: Normocephalic. EYES: No scleral icterus. No injection or drainage. NECK: Trachea midline. large neck prevents accurate assessment of JVD. Central line removed CARDIOVASCULAR: Tachycardic rate, regular rhythm. RESPIRATORY: intubated, fio2 50%, coarse breath sounds bilaterally, slightly tachypneic. Tidal volumes 350-400 ml PSV 15/8/50% GASTROINTESTINAL: Abdomen morbidly obese, soft, non-tender, nondistended. MSK: No cyanosis, or edema. NEURO: Opens eyes to command tracks. Weakly follows commands in lower extremity , delayed response. Localizes with UE Procedures None Date of Insertion: May 25, 2017 A/P Assessment and Plan Assessment: 66yF with encephalopathy thought to be secondary to AROMATHERAPIST infection vs. toxic/metabolic, hypoxic respiratory failure, sepsis. some improvements in mental status. still too somnolent for safe extubation. Respiratory failure persists. s/p right thoracentesis. will continue forced diuresis. continue daily SBTs while we optimize pulmonary function. Now with new sepsis, most likely from HCAP. Also has marco antonio UTI Plan: Neuro: Metabolic Encephalopathy- slight improvement. 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 - Off all sedating medications. - Received Versed fentanyl and rocuronium for bronchoscopy 06/09/17 - Continue amantadine and, modafinil for wakefulness. - frequent neuro checks, aspirin - Prev TSH borderline high, T4 low. Continue Synthroid 25 mcg IV daily started 06/08/17. - Ammonia normal. B12 normal - EEG 06/08 moderate encephalopathy, carotid ultrasound no significant stenosis Resp: Acute hypoxic and hypercarbic respiratory failure - persistent. Right pleural effusion Bibasilar infiltrates/HCAP - Bronchoscopy showed inflamed airways, thick secretion bilateral lower lobes. - Zyvox and cefepime started by Dr. Portillo ID, see ID section - vent bundle, hob at 30 degrees, nebs. Up to chair today - wean fio2 for spo2 > 90% - forced diuresis, lasix 40mg iv q8, reduce to 20 mg IV q8 - daily SBTs. 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 - Right thoracentesis with fluid studies-exudative effusion, cultures pending Renal: Acute kidney injury- resolved - continue Reid - forced diuresis with Lasix goal net -2L/24h. - daily bmp FEN/GI: Shock liver - persistent Morbid obesity Hypokalemia Volume overload Acute protein calorie malnutrition- moderate - Glucerna tube feeds - ICU electrolyte protocol - daily bmp - trend LFTs Heme/ID: New Fever leukocytosis, Sepsis HCAP marco antonio UTI Septic Shock - resolved Discitis Strep bacteremia (recent blood cultures negative) - abx per ID Dr. Portillo. Started on Zyvox cefepime 06/09/17, continue ceftriaxone for discitis - Replace Reid, continue diflucan - Bronch with BAL 06/09/17. Follow up on studies - cultures NGTD except initial 4/4 bottles with group B strp - There is clinical concern for endocarditis (4/4 bottle strep, brain emboli delfino though STEVEN negative) - if discitis is truly the source and no improvements, could consider disc biopsy in the future. - F/U Send pleural fluid studies and BAL Endocrine: Severe hyperglycemia Relative Adrenal Insufficiency Possible hyperthyroidism - steroid tapered, now DCd - severe hyperglycemia despite high dose insulin drip - continue insulin drip Algorithm #4. - Levemir to 80 units SQ q12h - Started on levothyroxine 25 g IV daily Prophylaxis: - pepcid - SCDs - SQH Lines: - Reid: keep while active diuresis. CCT 35 -critically ill again, new sepsis most likely from healthcare associated pneumonia. ABX modified. s/p diagnostic and therapeutic bronchoscopy Dex Dillon MD Jun 10, 2017 10:25
[2017-06-10] MEDS: levETIRAcetam INJ 750 MG in SODIUM CHLORIDE 0.9% INJ 100 ML IV SCH ×2 (10:59→21:39)
[2017-06-10] MEDS: INSULIN REGULAR (IV INFUSION) 100 UNITS in SODIUM CHLORIDE 0.9% INJ 99 ML IV PRN (14:13)
--- NOTE | 2017-06-10 16:22 | HHI.IDPN ---
Subjective Subjective Remarks is a 66-year-old female presents confused and lethargic. Patient reportedly was recently seen today at an urgent care and received an injection for low back pain. Patient here denies headaches, chest pain or shortness of breath, abdominal pain or extremity pain. Patient does complain of low back pain. at bedside states that they're visiting from out of state for the past 3 months and will be returning back to their home state in a week. reports patient has chronic low back pain but this exacerbated over the last 24 hours starting yesterday morning. Patient was seen earlier today by her chiropractor for an adjustment and then was referred to an urgent care. Patient reportedly had a fever at the chiropractor's office and felt cold and clammy. At the urgent care patient was evaluated and reportedly had an injection of a nonsteroidal medication as she is diabetic and he did not want to give her a steroid injection. Patient went home about 1:00 PM she was drowsy so sat down in a chair and fell asleep according to the . He tried to awaken her at 4:30 and noticed that she was confusional and lethargic. He attempted to continue to awaken her over the next 2-3 hours and because she was not improving decided finally to call EMS to transport her to the emergency room. Patient and spouse denied any recent injury or fall. Patient was ambulatory this morning but this evening has difficulty elevating her lower extremities as well as she was generally extremely weak. ID following for Strep bacteremia, probable endocarditis, Septic emboli cerebral , discitis based on 1st imaging. bilateral LE cellulitis. Overnight events reviewed. Opens eyes spontaneously. Moves left great toe on command by patients spouse, tracks to voice commands. Still slow to respond. Tmax 101.8 F Tc 100.8 F Not on pressors. No rash No diarrhea. Antibiotics CFTX Cefepime IV Zyvox Lines Line sites with no e.o infection Past Medical History Diabetes Dyslipidemia Hypertension Chronic back pain sees a chiropracter. Chronic lower extremity swelling. Never had an ECHO before per pt and spouse. ? Sleep apnea. Allergies: Coded Allergies: No Known Allergies (Unverified , 05/20/17) Objective . Vital Signs Date Time Temp Pulse Resp B/P (MAP) Pulse Ox O2 Delivery O2 Flow Rate FiO2 06/10/17 16:02 93 50 06/10/17 14:00 96 06/10/17 12:33 96 50 06/10/17 12:00 104 06/10/17 12:00 50 06/10/17 12:00 100.0 104 43 78/56 (63) 93 06/10/17 10:00 96 06/10/17 08:00 50 06/10/17 08:00 100.6 103 13 118/58 (78) 95 06/10/17 08:00 103 06/10/17 07:52 50 06/10/17 07:52 93 50 06/10/17 07:52 92 Ventilator 50 06/10/17 07:20 50 06/10/17 06:00 101 06/10/17 04:06 95 50 06/10/17 04:00 100 06/10/17 04:00 50 06/10/17 04:00 99.6 100 18 120/58 (78) 94 06/10/17 02:00 93 06/10/17 01:03 98 50 06/10/17 00:00 99.0 92 16 108/55 (72) 96 06/10/17 00:00 50 06/10/17 00:00 92 06/09/17 22:05 98 50 06/09/17 22:00 95 06/09/17 20:00 100.3 97 18 119/56 (77) 93 06/09/17 20:00 97 06/09/17 20:00 50 06/09/17 19:06 93 50 06/09/17 18:00 92 06/10/17 06/10/17 06/11/17 15:00 23:00 07:00 Intake Total 507.5 ml Balance 507.5 ml IV Total 507.5 ml . Laboratory Tests Test 06/09/17 04:49 06/10/17 03:50 White Blood Count 14.8 TH/MM3 14.7 TH/MM3 Red Blood Count 3.72 MIL/MM3 3.18 MIL/MM3 Hemoglobin 10.8 GM/DL 9.4 GM/DL Hematocrit 33.8 % 29.0 % Mean Corpuscular Volume 90.8 FL 91.1 FL Mean Corpuscular Hemoglobin 28.9 PG 29.6 PG Mean Corpuscular Hemoglobin Concent 31.9 % 32.5 % Red Cell Distribution Width 16.9 % 16.5 % Platelet Count 203 TH/MM3 172 TH/MM3 Mean Platelet Volume 10.3 FL 11.3 FL CBC Comment AUTO DIFF Differential Total Cells Counted 100 Neutrophils % (Manual) 51 % Band Neutrophils % 21 % Lymphocytes % 3 % Monocytes % 3 % Eosinophils % 4 % Neutrophils # (Manual) 13.3 TH/MM3 Metamyelocytes 11 % Myelocytes 7 % Nucleated Red Blood Cells 8 /100 WBC Differential Comment FINAL DIFF MANUAL Platelet Estimate NORMAL Platelet Morphology Comment ENLARGED Laboratory Tests Test 06/09/17 04:49 06/10/17 03:50 Blood Urea Nitrogen 14 MG/DL 13 MG/DL Creatinine 0.95 MG/DL 1.07 MG/DL Random Glucose 229 MG/DL 159 MG/DL Total Protein 6.5 GM/DL Albumin 1.6 GM/DL Calcium Level 8.1 MG/DL 8.0 MG/DL Phosphorus Level 2.3 MG/DL Magnesium Level 1.7 MG/DL Alkaline Phosphatase 482 U/L Aspartate Amino Transf (AST/SGOT) 73 U/L Alanine Aminotransferase (ALT/SGPT) 58 U/L Total Bilirubin 0.5 MG/DL Sodium Level 142 MEQ/L 141 MEQ/L Potassium Level 3.8 MEQ/L 3.4 MEQ/L Chloride Level 100 MEQ/L 97 MEQ/L Carbon Dioxide Level 35.4 MEQ/L 33.7 MEQ/L Anion Gap 7 MEQ/L 10 MEQ/L Estimat Glomerular Filtration Rate 59 ML/MIN 51 ML/MIN Microbiology Date/Time Source Procedure Growth Status 06/08/17 13:05 Blood Peripheral Aerobic Blood Culture - Preliminary NO GROWTH IN 2 DAYS Resulted 06/08/17 13:05 Blood Peripheral Anaerobic Blood Culture - Preliminary NO GROWTH IN 2 DAYS Resulted 06/08/17 13:03 Blood Peripheral Aerobic Blood Culture - Preliminary NO GROWTH IN 2 DAYS Resulted 06/08/17 13:03 Blood Peripheral Anaerobic Blood Culture - Preliminary NO GROWTH IN 2 DAYS Resulted 06/08/17 15:08 Fluid Pleural Fluid Fungal Smear - Final NO FUNGAL ELEMENTS SEEN. Resulted 06/08/17 15:08 Fluid Pleural Fluid Fungal Culture Pending Resulted 06/08/17 15:08 Fluid Pleural Fluid Acid Fast Stain - Final NO ACID FAST BACILLI SEEN Resulted 06/08/17 15:08 Fluid Pleural Fluid Mycobacterial Culture Pending Resulted 06/08/17 15:08 Fluid Pleural Fluid Gram Stain - Final Resulted 06/08/17 15:08 Fluid Pleural Fluid Body Fluid Culture - Preliminary NO GROWTH IN 48 HOURS. Resulted 06/09/17 10:31 Bronchial Washings Left Lower Lobe Acid Fast Stain Pending Received 06/09/17 10:31 Bronchial Washings Left Lower Lobe Mycobacterial Culture Pending Received 06/09/17 10:25 Bronchial Washings Right Lower Lobe Fungal Smear - Final NO FUNGAL ELEMENTS SEEN. Resulted 06/09/17 10:25 Bronchial Washings Right Lower Lobe Fungal Culture Pending Resulted 06/09/17 10:25 Bronchial Washings Left Lower Lobe Fungal Smear - Final NO FUNGAL ELEMENTS SEEN. Resulted 06/09/17 10:25 Bronchial Washings Left Lower Lobe Fungal Culture Pending Resulted 06/09/17 10:25 Bronchial Washings Right Lower Lobe Acid Fast Stain Pending Received 06/09/17 10:25 Bronchial Washings Right Lower Lobe Mycobacterial Culture Pending Received 06/09/17 10:25 Bronchial Washings Right Lower Lobe Gram Stain - Final Resulted 06/09/17 10:25 Bronchial Washings Right Lower Lobe Bronchial Culture - Preliminary NO GROWTH IN 24 HOURS. Resulted 06/09/17 10:25 Bronchial Washings Left Lower Lobe Gram Stain - Final Resulted 06/09/17 10:25 Bronchial Washings Left Lower Lobe Bronchial Culture - Preliminary NO GROWTH IN 24 HOURS. Resulted 06/08/17 10:15 Sputum Endotracheal Gram Stain - Final Complete 06/08/17 10:15 Sputum Endotracheal Sputum Culture - Final NO GROWTH IN 48 HOURS. Complete 06/08/17 10:40 Urine Catheterized Urine Urine Culture - Final Veronica Species Complete Imaging Last Impressions Lumbar Spine MRI 06/03/17 0000 Signed Impressions: Service Date/Time: Saturday, June 03, 2017 15:42 - CONCLUSION: The MRI findings after contrast administration are not convincing for presence of active infection within the L3/L4 disc, adjacent vertebral bodies or epidural space/adjacent soft tissues. Santana Eric MD Pelvis CT 06/02/17 0000 Signed Impressions: Service Date/Time: Friday, June 02, 2017 17:29 - CONCLUSION: No evidence of intra-abdominal abscess collection. Nikita Damon MD Chest X-Ray 06/02/17 0000 Signed Impressions: Service Date/Time: Friday, June 02, 2017 15:14 - CONCLUSION: 1. Cardiomegaly. 2. Perihilar infiltrates consistent with mild to moderate pulmonary vascular congestion versus pneumonia. 3. Small right pleural effusion. 4. Multiple tubes and lines are stable. Nikita Damon MD Abdomen X-Ray 06/02/17 0000 Signed Impressions: Service Date/Time: Friday, June 02, 2017 15:20 - CONCLUSION: OG tube in the stomach. Mike Davis MD FACR Chest CT 06/01/17 0000 Signed Impressions: Service Date/Time: May 18:49 - CONCLUSION: 1. Dense consolidation in both posterior lower lobes right greater than left with air bronchograms. This could represent pneumonia. 2. Small bilateral pleural effusions. 3. Mild cardiomegaly. Austin Orellana MD Brain MRI 06/01/17 Signed Impressions: Service Date/Time: May 19:15 - CONCLUSION: 1. Multiple new small scattered punctate areas of restricted diffusion consistent with small areas of infarction. This could be secondary to emboli. 2. No acute hemorrhage or mass effect. 3. Acute sinusitis in the ethmoidal air cells and sphenoid sinus with air fluid levels. Austin Orellana MD Abdomen/Pelvis CT 06/01/17 0000 Signed Impressions: Service Date/Time: May 18:49 - CONCLUSION: 1. Suboptimal opacification of the bowel with the distal small bowel unopacified. There is a questionable abnormal gas collection in the anterior lower pelvis. An abscess is not excluded. A repeat study is recommended after additional oral contrast is given. 2. Consolidation in both posterior lung bases with small pleural effusions. Austin Orellana MD Renal Ultrasound 05/31/17 0000 Signed Impressions: Service Date/Time: Wednesday, May 31, 2017 20:47 - CONCLUSION: 1. Suboptimal exam with visualization. 2. No evidence of hydronephrosis. 3. Cyst extending off right kidney. Austin Orellana MD Lower Extremity Ultrasound 05/29/17 0000 Signed Impressions: Service Date/Time: Monday, May 29, 2017 13:10 - CONCLUSION: 1. No evidence of deep venous thrombosis. Monty Gross MD Tumor Localization 05/26/17 0000 Signed Impressions: Service Date/Time: Friday, May 26, 2017 13:36 - CONCLUSION: No abnormal uptake identified to suggest infection. Nikita Damon MD Liver Ultrasound 05/21/17 0000 Signed Impressions: Service Date/Time: Sunday, May 21, 2017 10:32 - CONCLUSION: 1. Hepatic steatosis. 2. Gallstones 3. Limited evaluation of the right kidney. Santana Lamar MD Head CT [id number]/20/[id number] Signed Impressions: Service Date/Time: Saturday, May 20, 2017 19:55 - CONCLUSION: 1. No acute findings. Retention cyst right maxillary sinus. Jakob Scruggs MD Physical Exam GENERAL: Obese patient. sedated int'd on mech vent SKIN: No rashes. Ecchymosis noted. No Janeway lesion no splinter hemorrhages. HEAD: Atraumatic. Normocephalic. EYES: Pupils equal round and reactive. Extraocular motions intact. No scleral icterus. No injection or drainage. ENT: Nose without bleeding, purulent drainage or septal hematoma. Throat without erythema, tonsillar hypertrophy or exudate. Uvula midline. Airway patent. NECK: Large neck, intubated. Supple CARDIOVASCULAR: Regular rate and rhythm without murmurs. well perused periphery with good refill RESPIRATORY: Breath sounds equal bilaterally.Clear to auscultation anteriorly GASTROINTESTINAL: Abdomen soft, non-tender, nondistended. Obese. No hepatosplenomegaly Incontinent of dark liquid stool chiu in place. MUSCULOSKELETAL: Extremities without clubbing, cyanosis. Pedal edema diminished , skin over legs now wrinkled. NEUROLOGICAL: Psych unable to assess IV line sites with no e/o infection. Assessment & Plan Remarks Septic Shock with MODS HCAP/plus aspiration pneumonia. nl resp kleber on sputum clx Meningitis/discitis(likely partially treated or parameningeal focus related CSF changes) New onset seizures likely secondary to OPTOM[employer]RI[employer]NER infection process. Strep Grp B bacteremia sources: ? GI, skin as source. STEVEN neg, but done 2 weeks after abx were started ? embolic strokes secondary to probable endocarditis. Candiduria: cath related infection. Bilateral R> L LE cellulitis: improved. Acute renal failure UO improving. GFR > 40 Acute resp failure: pulm edema,aspiration PNA, sleep apnea. MRI of T spine negative Abnormal LFTs: sepsis related, ? rhabdo elevated CK. HTN DM2 uncontrolled. Obesity BMI 49.7 kg/m2 Diarrhea Cdiff negative. Recs: Continue Ceftriaxone IV q12 for possible meningitis/epidural abscess,covers endocarditis if emboli are possibly septic. Continue Flagyl (when flagyl stopped due to encephalopathy the fevers started recurring, ? anaerobic component of PNA. Continue Diflucan )re: Candiduria) Continue Cefepime IV (Re: PSAE coverage pending cultures) Continue Zyvox IV (empiric MRSA coverage pneumonia, bronch cultures pending) Follow cultures. Follow clinically. d/w and RN D.w Spouse in room updated about plan. Nan Portillo MD Jun 10, 2017 16:22
[2017-06-10 19:00] LABS: BACTERIA, URINE FEW /hpf; BLOOD, URINE SMALL (NEG); COMMENT (UR) CATH-CULTURE IND; CULTURE IF INDICATED CATH CULTURE IND; GLUCOSE,URINE NEG (NEG); KETONE, URINE 10 mg/dL (NEG); MUCUS URINE FEW /lpf (OCC); NITRITE,URINE NEG (NEG); SQUAMOUS EPITHELIAL CELL URINE 3 /hpf (0-5); TRANSITIONAL EPI CELLS, URINE 3 /hpf; URINE COLOR YELLOW (YELLW/STRAW)
[2017-06-11] VITALS (19 sets, daily range): BP systolic 113–124; BP diastolic 53–59; PULSE 82–93; RESP 17–21; TEMP 98.6–101.3; O2SAT 93–97
[2017-06-11] MEDS: FUROSEMIDE 40 MG/4 ML VIAL IV PUSH SCH ×3 (03:28→18:07)
[2017-06-11] MEDS: CHLORHEXIDINE GLUCONATE 2 % 1 PACK (2 CLOTHS) TOP SCH (03:29)
[2017-06-11] MEDS: metroNIDAZOLE 500 MG TAB PO SCH ×3 (03:29→18:07)
[2017-06-11] MEDS: cefTRIAXone INJ 2,000 MG in SODIUM CHLORIDE 0.9% INJ 100 ML IV SCH ×2 (03:29→17:11)
[2017-06-11] MEDS: HEPARIN SODIUM - SQ 10,000 UNITS/ML VIAL SQ SCH ×3 (04:49→20:05)
[2017-06-11] MEDS: FREE WATER G-TUBE SCH ×4 (04:50→17:14)
[2017-06-11] MEDS: PHENYTOIN INJ 100 MG/2 ML VIAL IV SCH ×3 (04:50→20:05)
[2017-06-11] MEDS: LEVOTHYROXINE SODIUM 100 MCG VIAL IV PUSH SCH (04:50)
[2017-06-11] MEDS: AMANTADINE HCL SOLN 100 MG/10 ML UDC PO SCH ×2 (04:52→11:37)
[2017-06-11 05:31] LABS: HEMATOCRIT 26.9 % (35.0-46.0); MEAN CELL VOLUME 92.3 FL (80.0-100.0); MEAN CORPUSCULAR HEMOGLOBIN 31.5 PG (27.0-34.0); MEAN CORPUSCULAR HGB CONC 34.1 % (32.0-36.0); PLATELET COUNT 164 TH/MM3 (150-450); RED BLOOD COUNT 2.92 MIL/MM3 (4.00-5.30); RED CELL DISTRIBUTION WIDTH 17.2 % (11.6-17.2); WHITE BLOOD COUNT 13.2 TH/MM3 (4.0-11.0)
[2017-06-11 05:33] LABS: REVIEW FLAG FINAL
[2017-06-11 06:54] LABS: BICARBONATE 32.8 MEQ/L (21.0-32.0)
[2017-06-11 06:56] LABS: POTASSIUM 3.7 MEQ/L (3.5-5.1)
[2017-06-11] MEDS: CEFEPIME INJ 2,000 MG in SODIUM CHLORIDE 0.9% INJ 100 ML IV SCH ×4 (07:51→15:51)
[2017-06-11] MEDS: CARVEDILOL 6.25 MG TAB PO SCH ×2 (07:52→20:05)
[2017-06-11] MEDS: DOCUSATE SODIUM 50 MG/SENNA 8.6 MG TAB PO SCH ×2 (07:52→20:05)
[2017-06-11] MEDS: MODAFINIL 200 MG TAB PO SCH (07:52)
[2017-06-11] MEDS: ASPIRIN 325 MG TAB PO SCH (07:53)
[2017-06-11] MEDS: FLUCONAZOLE 100 MG TAB PO SCH (07:53)
[2017-06-11] MEDS: SODIUM CHLORIDE 0.9% FLUSH 10 ML FLUSH IV FLUSH SCH ×2 (07:53→20:06)
[2017-06-11] MEDS: LINEZOLID 600 MG PREMIX 300 ML IV SCH ×2 (07:53→20:08)
[2017-06-11] MEDS: NYSTATIN 100,000 U/GM PWD 15 GM BTL TOPICAL SCH ×2 (07:54→20:08)
[2017-06-11] MEDS: INSULIN DETEMIR 100 UNITS/ML VIAL SQ SCH ×2 (07:54→20:06)
[2017-06-11] MEDS: COLLAGENASE OINT 30 GM TUBE TOPICAL SCH (07:54)
[2017-06-11] MEDS: FAMOTIDINE 20 MG/2 ML VIAL IV PUSH SCH ×2 (07:57→20:05)
[2017-06-11] MEDS: levETIRAcetam INJ 750 MG in SODIUM CHLORIDE 0.9% INJ 100 ML IV SCH ×2 (10:08→20:14)
[2017-06-11] MEDS: INSULIN REGULAR (IV INFUSION) 100 UNITS in SODIUM CHLORIDE 0.9% INJ 99 ML IV PRN ×2 (10:15→18:14)
[2017-06-11] MEDS: ACETAMINOPHEN 1000 MG/100 ML VIAL IV PRN ×2 (10:27→20:08)
--- NOTE | 2017-06-11 12:44 | HHI.CCPN ---
Subjective Remarks/Hospital Course 66-year-old female presents confused and lethargic. Patient reportedly was recently seen today at an urgent care and received an injection for low back pain. Patient here denies headaches, chest pain or shortness of breath, abdominal pain or extremity pain. Patient does complain of low back pain. at bedside states that they're visiting from out of state for the past 3 months and will be returning back to their home state in a week. reports patient has chronic low back pain but this exacerbated over the last 24 hours starting yesterday morning. Patient was seen earlier today by her chiropractor for an adjustment and then was referred to an urgent care. Patient reportedly had a fever at the chiropractor's office and felt cold and clammy. At the urgent care patient was evaluated and reportedly had an injection of a nonsteroidal medication as she is diabetic and he did not want to give her a steroid injection. Patient went home about 1:00 PM she was drowsy so sat down in a chair and fell asleep according to the . He tried to awaken her at 4:30 and noticed that she was confusional and lethargic. He attempted to continue to awaken her over the next 2-3 hours and because she was not improving decided finally to call EMS to transport her to the emergency room. Patient and spouse denied any recent injury or fall. Patient was ambulatory this morning but this evening has difficulty elevating her lower extremities as well as she was generally extremely weak. 05/21 Patient is on BIPAP 12/5 with 45% FIO2. Afebrile. Awake. Renal function is improving with Cr: 1.87 from 2.74. 05/22 No events overnight. Patient is more awake and alert off BIPAP. Renal function is improving with Cr: 1.07 from 1.87. delayed note entry. consulted and seen at ~1500. RECONSULT NOTE: 05/30: reconsulted for worsening hypoxemia. now on 6L facemask. please refer to prior consult note for detailed medical history. In brief, 66yF lethargic female, back pain after injection, ? discitis/osteo, on abx for group B strep, worsening fever, tachycardia, tachypnea, o2 requirement to 6L facemask and RR up to 40s. patient unable to provide additional history but does appear in distress. 05/31: Patient remains encephalopathic, on high flow O2 via nasal cannula, this morning was on 60 L/m 55% FiO2. Subsequently has dropped to 30 L/m to extubate percent FiO2. Given 80 mg IV Lasix with no response. Subsequently given Bumex 2 mg IV push and started on Bumex drip at 1 mg/h to attempt to diurese in an effort to improve respiratory status however has not had any increase in urine output with Bumex drip. Creatinine came back elevated at 2.13. Suspect acute kidney injury/ATN which may be a reason for poor response to diuretics. She also spiked a temperature of 103 for which IV Ofirmev was ordered. 06/01: intubated overnight and hypotensive requiring vasopressors. now remains in shock on 2 vasopressors. bedside critical care echo demonstrates hyperdynamic LV with completely collapsed IVC. gave 2L bolus and started on mivf @ 100 cc/hr. still spiking fevers. discussed with Dr. Portillo and plan to repeat LP as well as cultures and imaging to look for source. clinically worse today. 06/02: off vasopressors. remains intubated and sedated, very encephalopathic. MRI with new punctate strokes. STEVEN being done today. also ? abscess in the pelvis of unknown origin, maybe contained diverticulitis? CT guided drainage. although some improvements in hemodynamics, no improvements in vent or encephalopathy. off pathway. 06/03: IR re-ct scan without any evidence of abdominal abscess. blood glucose still not controlled despite high dose algorithm. wbc downtrending. 06/04: wbc continues to downtrend. Cr improving as well. very hypokalemic despite aggressive replacement. blood glucose now < 200, but using high dose insulin drip and levemir. encephalopathy persists. 06/05: clinically improving. weakly following commands this morning. renal function improved. EEG negative for seizures. still too sleepy for safe extubation, but improved from yesterday. 06/06: continues to improve. still weakly following commands. failing SBT- on 20 of PSV with small tidal volumes and very tachypneic. slightly more awake, but still not awake enough for safe extubation. 06/07: Currently tolerating CPAP 15 PSV. Opens eyes tracks. Weekly follows commands on the lower extremity but delayed response. Remains off all sedation approximately 36 hours now. is at the bedside updated 06/08: Fever 100.8, WBC 15.4. But slightly more awake and focussed today. Wiggles toes to command with a delay. CXR shows moderate effusion- plan for CT guided thoracentesis today. D/W IR Dr. Quintanilla and ID Dr. Portillo 06/09: Appears to be becoming more septic. Tmax 101.8. WBC count 14.8 with 21 % bands. Zyvox and cefepime started by Dr. Portillo. Chest CT yesterday showed bilateral dense consolidation at the bases left more than right. Moderate to thick secretion on bronchoscopy and bilateral lower lobes today. Bilateral airways inflamed and friable. New fever, sepsis most likely secondary to healthcare associated pneumonia. s/p right thoracentesis with 225 ml of fluid removed, exudative by light criteria. Hemorrhagic fluid. EEG 06/08 showed moderate encephalopathy, no seizures 06/10: Continues to spike fever up to 101.6. White count stable at 14.7. Had bronchoscopy with thick secretions removed from bilateral lower lobes yesterday. BAL studies are pending. Tolerate CPAP with high pressure support. Chest x-ray slightly improved 06/11: Continues to spike fever overnight fever up to 103. Cultures remain negative except for Marco Antonio UTI. Appears more lethargic. Not able to extubate due to mental status. Will request general surgery consult for tracheostomy, and GI for PEG placement Objective Vital Signs Date Time Temp Pulse Resp B/P (MAP) Pulse Ox O2 Delivery O2 Flow Rate FiO2 06/11/17 12:00 45 06/11/17 12:00 87 06/11/17 12:00 98.6 21 113/53 (73) 95 06/11/17 08:39 Ventilator 06/09/17 07:00 5.00 Intake and Output 06/11/17 06/11/17 06/12/17 08:00 16:00 00:00 Intake Total 1487 ml 407.5 ml Output Total 1400 ml Balance 87 ml 407.5 ml Result Diagram: 06/11/17 0510 06/11/17 0510 Other Results Microbiology Date/Time Source Procedure Growth Status 06/09/17 10:25 Bronchial Washings Right Lower Lobe Gram Stain - Final Complete 06/09/17 10:25 Bronchial Washings Right Lower Lobe Bronchial Culture - Final NO GROWTH IN 48 HOURS. Complete 06/09/17 10:25 Bronchial Washings Left Lower Lobe Gram Stain - Final Complete 06/09/17 10:25 Bronchial Washings Left Lower Lobe Bronchial Culture - Final NO GROWTH IN 48 HOURS. Complete Imaging Last Impressions Liver Ultrasound 05/21/17 0000 Signed Impressions: Service Date/Time: Sunday, May 21, 2017 10:32 - CONCLUSION: 1. Hepatic steatosis. 2. Gallstones 3. Limited evaluation of the right kidney. Santana Lamar MD Chest X-Ray 05/21/17 0000 Signed Impressions: Service Date/Time: Sunday, May 21, 2017 06:17 - CONCLUSION: 1. Limited suboptimal study with motion artifact. 2. No definite acute cardiac pulmonary disease. Austin Orellana MD Head CT 05/20/17 192 Signed Impressions: Service Date/Time: Saturday, May 20, 2017 19:55 - CONCLUSION: 1. No acute findings. Retention cyst right maxillary sinus. Jakob Scruggs MD Objective Remarks GENERAL: Patient is 66 yo lying in bed, intubated, off all sedation SKIN: Warm and dry. HEAD: Normocephalic. EYES: No scleral icterus. No injection or drainage. NECK: Trachea midline. large neck prevents accurate assessment of JVD. Central line removed CARDIOVASCULAR: Tachycardic rate, regular rhythm. RESPIRATORY: intubated, fio2 45%, coarse breath sounds bilaterally, slightly tachypneic. Tidal volumes 350-400 ml PSV 15/8/45% GASTROINTESTINAL: Abdomen morbidly obese, soft, non-tender, nondistended. MSK: No cyanosis, or edema. NEURO: Opens eyes to command. Weakly follows commands in lower extremity, delayed response. 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 toxic/metabolic, hypoxic respiratory failure, sepsis. some improvements in mental status. still too somnolent for safe extubation. Respiratory failure persists. s/p right thoracentesis. will continue forced diuresis. continue daily SBTs while we optimize pulmonary function. Now with new sepsis, most likely from HCAP. Also has marco antonio UTI Plan: Neuro: Metabolic Encephalopathy- slight improvement. 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 Remains encephalopathy - Received Versed fentanyl and rocuronium for bronchoscopy 06/09/17 - Continue amantadine and, modafinil for wakefulness. - frequent neuro checks, aspirin - Prev TSH borderline high, T4 low. Continue Synthroid 25 mcg IV daily started 06/08/17. - Ammonia normal. B12 normal - EEG 06/08 moderate encephalopathy, carotid ultrasound no significant stenosis Resp: Acute hypoxic and hypercarbic respiratory failure - persistent. Right pleural effusion Bibasilar infiltrates/HCAP - Bronchoscopy showed inflamed airways, thick secretion bilateral lower lobes. - Zyvox and cefepime per Dr. Portillo ID, see ID section - vent bundle, hob at 30 degrees, nebs. Up to chair today - wean fio2 for spo2 > 90% - forced diuresis, lasix 40mg iv q8, reduced to 20 mg IV q8, will hold due to increase in creat - daily SBTs. 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 - Right thoracentesis with fluid studies-exudative effusion, cultures pending Renal: Acute kidney injury- resolved - continue Reid - forced diuresis with Lasix goal net -2L/24h.-DC today due to increasing creat - daily bmp FEN/GI: Shock liver - persistent Morbid obesity Hypokalemia Volume overload Acute protein calorie malnutrition- moderate - Glucerna tube feeds - ICU electrolyte protocol - daily bmp - trend LFTs - GI onsulted for PEG Heme/ID: New Fever leukocytosis, Sepsis HCAP marco antonio UTI Septic Shock - resolved Discitis Strep bacteremia (recent blood cultures negative) - abx per ID Dr. Portillo. Continue Zyvox cefepime 06/09/17, continue ceftriaxone for discitis - Replace Reid, continue diflucan - Bronch with BAL 06/09/17. Follow up on studies - cultures NGTD except initial 4/4 bottles with group B strp. Repeat blood cultures today - There is clinical concern for endocarditis (4/4 bottle strep, brain emboli delfino though STEVEN negative) - if discitis is truly the source and no improvements, could consider disc biopsy in the future. - F/U Send pleural fluid studies and BAL Endocrine: Severe hyperglycemia Relative Adrenal Insufficiency Possible hyperthyroidism - steroid tapered, now DCd - severe hyperglycemia despite high dose insulin drip - continue insulin drip Algorithm #4. - Levemir to 80 units SQ q12h - On levothyroxine 25 g IV daily Prophylaxis: - pepcid - SCDs - SQH Lines: - Reid: keep while active diuresis. Level 3. General surgery and GI consult for trach and PEG Dex Dillon MD Jun 11, 2017 12:44
[2017-06-12] VITALS (29 sets, daily range): BP systolic 103–125; BP diastolic 51–70; PULSE 83–92; RESP 18–28; TEMP 98.3–99.4; O2SAT 93–100
[2017-06-12] MEDS: CEFEPIME INJ 2,000 MG in SODIUM CHLORIDE 0.9% INJ 100 ML IV SCH ×2 (00:36→08:44)
[2017-06-12] MEDS: CHLORHEXIDINE GLUCONATE 2 % 1 PACK (2 CLOTHS) TOP SCH (04:00)
[2017-06-12] MEDS: cefTRIAXone INJ 2,000 MG in SODIUM CHLORIDE 0.9% INJ 100 ML IV SCH ×2 (04:32→17:00)
[2017-06-12] MEDS: PHENYTOIN INJ 100 MG/2 ML VIAL IV SCH ×2 (04:33→14:19)
[2017-06-12] MEDS: LEVOTHYROXINE SODIUM 100 MCG VIAL IV PUSH SCH (04:33)
[2017-06-12] MEDS: FUROSEMIDE 40 MG/4 ML VIAL IV PUSH SCH ×2 (04:33→11:06)
[2017-06-12] MEDS: HEPARIN SODIUM - SQ 10,000 UNITS/ML VIAL SQ SCH ×3 (04:33→22:02)
[2017-06-12] MEDS: metroNIDAZOLE 500 MG TAB PO SCH ×2 (04:33→11:06)
[2017-06-12] MEDS: FREE WATER G-TUBE SCH ×4 (04:34→17:38)
[2017-06-12] MEDS: AMANTADINE HCL SOLN 100 MG/10 ML UDC PO SCH ×2 (04:37→11:07)
[2017-06-12] MEDS: INSULIN REGULAR (IV INFUSION) 100 UNITS in SODIUM CHLORIDE 0.9% INJ 99 ML IV PRN ×3 (04:59→22:01)
--- NOTE | 2017-06-12 06:18 | RADRPT ---
EXAM DATE/TIME: 06/12/2017 04:23 [facility] COMPARISON: CHEST SINGLE AP, June 10, 2017, 7:44. CHEST SINGLE AP, June 09, 2017, 17:42. INDICATIONS : Short of breath. MEDICAL HISTORY : Hypertension. Dyspnea. Diabetes. Chronic lower back pain. SURGICAL HISTORY : None. ENCOUNTER: Subsequent ACUITY: 1 week PAIN SCORE: 0/10 LOCATION: Bilateral chest FINDINGS: A single view of the chest demonstrates the endotracheal tube and nasogastric are both in good positi on. Right IJ central line in good position. Mild pulmonary hilar vascular congestion. The cardiomedi astinal contours are unremarkable. Osseous structures are intact. CONCLUSION: Tubes and catheters are in good position. Mild pulmonary vascular congestion. Adiel Elder MD on June 12, 2017 at 6:16 Board Certified Radiologist. This report was verified electronically.
[2017-06-12 07:24] LABS: BICARBONATE 30.9 MEQ/L (21.0-32.0); CALCIUM-PROTEIN CORRECTED 7.9 MG/DL (8.5-10.1); MAGNESIUM 1.8 MG/DL (1.5-2.5); POTASSIUM 3.6 MEQ/L (3.5-5.1); TOTAL BILIRUBIN ADULT 0.8 MG/DL (0.2-1.0)
--- NOTE | 2017-06-12 08:15 | HHI.GIFU ---
Subjective Remarks Reconsulted for PEG tube placement. Awake on ventilator. at bedside. D/W patient and EGD- procedure, risks, benefits and they would like to proceed. (Evelin Zheng) Objective Vitals I&O Vital Signs Date Time Temp Pulse Resp B/P (MAP) Pulse Ox O2 Delivery O2 Flow Rate FiO2 06/12/17 07:38 97 45 06/12/17 06:00 85 06/12/17 04:00 99.4 85 21 125/58 (80) 100 06/12/17 04:00 50 06/12/17 04:00 86 06/12/17 03:50 99 45 06/12/17 02:00 85 06/12/17 01:05 100 45 06/12/17 00:00 50 06/12/17 00:00 99.4 83 20 109/55 (73) 95 06/12/17 00:00 84 06/11/17 22:00 82 06/11/17 21:55 97 45 06/11/17 20:11 97 45 06/11/17 20:00 50 06/11/17 20:00 101.3 93 20 119/58 (78) 97 06/11/17 20:00 86 06/11/17 18:00 92 06/11/17 17:45 45 06/11/17 16:38 97 45 06/11/17 16:00 98.9 90 18 123/59 (80) 93 06/11/17 16:00 91 06/11/17 16:00 45 06/11/17 14:00 89 06/11/17 13:34 97 45 06/11/17 12:00 45 06/11/17 12:00 87 06/11/17 12:00 98.6 87 21 113/53 (73) 95 06/11/17 10:00 88 06/11/17 08:39 45 06/11/17 08:39 94 45 06/11/17 08:39 95 Ventilator 45 I/O 06/11/17 06/11/17 06/11/17 06/12/17 06/12/17 06/12/17 07:00 15:00 23:00 07:00 15:00 23:00 Intake Total 1387 ml 507.5 ml 2111.5 ml 1407 ml Output Total 1400 ml 1050 ml 1700 ml Balance -13 ml 507.5 ml 1061.5 ml -293 ml IV Total 100 ml 507.5 ml 807.5 ml 100 ml Tube Feeding 687 ml 704 ml 707 ml Other 600 ml 600 ml 600 ml Output Urine Total 900 ml 550 ml 800 ml Stool Total 500 ml 500 ml 900 ml Laboratory Laboratory Tests Test 06/12/17 05:30 Blood Urea Nitrogen 18 Creatinine 1.14 Random Glucose 268 Total Protein 5.9 Albumin 1.4 Calcium Level 7.3 Magnesium Level 1.8 Alkaline Phosphatase 418 Aspartate Amino Transf (AST/SGOT) 76 Alanine Aminotransferase (ALT/SGPT) 32 Total Bilirubin 0.8 Sodium Level 135 Potassium Level 3.6 Chloride Level 95 Carbon Dioxide Level 30.9 Anion Gap 9 Estimat Glomerular Filtration Rate 48 Protein Corrected Calcium 7.9 Date/Time Source Procedure Growth Status 06/11/17 16:04 Blood Peripheral Aerobic Blood Culture Pending Received 06/11/17 16:04 Blood Peripheral Anaerobic Blood Culture Pending Received 06/08/17 15:08 Fluid Pleural Fluid Fungal Smear - Final NO FUNGAL ELEMENTS SEEN. Resulted 06/08/17 15:08 Fluid Pleural Fluid Fungal Culture Pending Resulted 06/09/17 10:25 Bronchial Washings Right Lower Lobe Fungal Smear - Final NO FUNGAL ELEMENTS SEEN. Resulted 06/09/17 10:25 Bronchial Washings Right Lower Lobe Fungal Culture Pending Resulted 06/10/17 10:55 Urine Clean Catch Urine Culture - Preliminary RESULTS PENDING Resulted Imaging Last Impressions Chest X-Ray 06/12/17 0600 Signed Impressions: Service Date/Time: Monday, June 12, 2017 04:23 - CONCLUSION: Tubes and catheters are in good position. Mild pulmonary vascular congestion. Adiel Elder MD Upper Extremity Ultrasound 06/08/17 0000 Signed Impressions: Service Date/Time: May 10:45 - CONCLUSION: Superficial venous thrombosis of the bilateral upper extremities involving the cephalic veins. Deep veins are patent. Santana Eric MD Thoracentesis 06/08/17 0000 Signed Impressions: Service Date/Time: May 14:49 - CONCLUSION: Uncomplicated CT-guided right thoracentesis with removal of 225 cc of fluid. Please note that most of the chest x-ray opacity actually represents right lower lobe airspace consolidation. Santana Shirley MD Lower Extremity Ultrasound 06/08/17 Signed Impressions: Service Date/Time: May 11:01 - CONCLUSION: Superficial venous thrombosis of the left lower extremity (left greater saphenous vein). No DVT of either lower chroni. Santana Eric MD Carotid Artery Ultrasound 06/08/17 Signed Impressions: Service Date/Time: May 10:29 - CONCLUSION: Minimal atherosclerotic plaque of the left carotid bifurcation. Otherwise normal. No significant narrowing. Santana Eric MD Lumbar Spine MRI 06/03/17 Signed Impressions: Service Date/Time: Saturday, June 03, 2017 15:42 - CONCLUSION: The MRI findings after contrast administration are not convincing for presence of active infection within the L3/L4 disc, adjacent vertebral bodies or epidural space/adjacent soft tissues. Santana Eric MD Pelvis CT 06/02/17 Signed Impressions: Service Date/Time: Friday, June 02, 2017 17:29 - CONCLUSION: No evidence of intra-abdominal abscess collection. Nikita Damon MD Abdomen X-Ray 06/02/17 Signed Impressions: Service Date/Time: Friday, June 02, 2017 15:20 - CONCLUSION: OG tube in the stomach. Mike Davis MD FACR Chest CT 06/01/17 Signed Impressions: Service Date/Time: May 18:49 - CONCLUSION: 1. Dense consolidation in both posterior lower lobes right greater than left with air bronchograms. This could represent pneumonia. 2. Small bilateral pleural effusions. 3. Mild cardiomegaly. Austin Orellana MD Brain MRI 06/01/17 Signed Impressions: Service Date/Time: May 19:15 - CONCLUSION: 1. Multiple new small scattered punctate areas of restricted diffusion consistent with small areas of infarction. This could be secondary to emboli. 2. No acute hemorrhage or mass effect. 3. Acute sinusitis in the ethmoidal air cells and sphenoid sinus with air fluid levels. Austin Orellana MD Abdomen/Pelvis CT 06/01/17 Signed Impressions: Service Date/Time: May 18:49 - CONCLUSION: 1. Suboptimal opacification of the bowel with the distal small bowel unopacified. There is a questionable abnormal gas collection in the anterior lower pelvis. An abscess is not excluded. A repeat study is recommended after additional oral contrast is given. 2. Consolidation in both posterior lung bases with small pleural effusions. Austin Orellana MD Renal Ultrasound 05/31/17 0000 Signed Impressions: Service Date/Time: Wednesday, May 31, 2017 20:47 - CONCLUSION: 1. Suboptimal exam with visualization. 2. No evidence of hydronephrosis. 3. Cyst extending off right kidney. Austin Orellana MD Tumor Localization 05/26/17 0000 Signed Impressions: Service Date/Time: Friday, May 26, 2017 13:36 - CONCLUSION: No abnormal uptake identified to suggest infection. Nikita Damon MD Liver Ultrasound 05/21/17 0000 Signed Impressions: Service Date/Time: Sunday, May 21, 2017 10:32 - CONCLUSION: 1. Hepatic steatosis. 2. Gallstones 3. Limited evaluation of the right kidney. Santana Lamar MD Head CT [id number] Signed Impressions: Service Date/Time: Saturday, May 20, 2017 19:55 - CONCLUSION: 1. No acute findings. Retention cyst right maxillary sinus. Jakob Scruggs MD Physical Exam HEENT: Normocephalic; atraumatic; no jaundice. CHEST: Intubated. Diminished bases CARDIAC: RRR ABDOMEN: Soft, obese, nondistended, nontender; bowel sounds are present. OGT with TF EXTREMITIES: Generalized edema, Greater in BUE SKIN: No rash; no jaundice. CLINICAL TEAM MANAGER: Lethargic, does follow commands. (Evelin Zheng [facility]) Assessment and Plan Plan ASSESSMENT: - Reconsulted for PEG tube placement. D/W Pt/- procedure, risks, benefits and they would like to proceed. Cna Ltc following and recommended Glucerna 1.5 at 60cc/hr. - Ruled out Diverticular abscess. CT scan without IV contrast (06/01/17)---> Suboptimal opacification of the bowel with the distal small bowel unopacified. There is a questionable abnormal gas collection in the anterior lower pelvis. An abscess is not excluded. A repeat study is recommended after additional oral contrast is given. Consolidation in both posterior lung bases with small pleural effusions. S/P GS evaluation, recommends CT guided drainage/drain placement of intra-abdominal abscess, however, CT scan without evidence of abdominal abscess. GS signed off, as there is no obvious intraabdominal source. WBC 13.2 - Elevated LFTs. Multifactorial secondary to shocked liver, infection, medications. LFTs continue to improve. T. Bili 0.8, AST 76, ALT 32, ALk phosph 418. - Sepsis/Bacteremia (Gr. B Beta Strep)/Discitis/HCAP, Asp. PNA. STEVEN negative. Diflucan, Zyvox, Cefepime, Flagyl. per ID - Resp. Failure, HCAP, Aspiration PNA, CHE. Vent per [facility]. GS consulted for tracheostomy. - Encephalopathy. MRI of the brain, which revealed multiple new small scattered punctate areas of restricted diffusion consistent with small areas of infarction, this could be secondary to emboli. Cardiology was consulted and she underwent STEVEN 06/02, which was negative for vegetations. Pt lethargic, but responding and following commands. - Anemia. 9.2/26.9 - JAMES. Improving. - DM, Hyperlipidemia per attending. PLAN: - Plan for egd with peg tube placement on 06/13 - Obtain consents - NPO after MN - Hold Heparin after MN - On multiple abx - Monitor LFTs - GS following - ID following - CCM following - Supportive care - Pt seen and examined by Dr. Piper and myself and this note is written on his behalf (Evelin Zheng) Physician Comments Patient seen and examined Agree with above Continue with current supportive care Monitor labs Plan for PEG placement tomorrow (Johnnie Piper MD) Evelin Zheng Jun 12, 2017 08:15 Johnnie Piper MD Jun 12, 2017 18:46
[2017-06-12] MEDS: MODAFINIL 200 MG TAB PO SCH (08:42)
[2017-06-12] MEDS: DOCUSATE SODIUM 50 MG/SENNA 8.6 MG TAB PO SCH ×2 (08:42→22:02)
[2017-06-12] MEDS: ASPIRIN 325 MG TAB PO SCH (08:43)
[2017-06-12] MEDS: FLUCONAZOLE 100 MG TAB PO SCH (08:43)
[2017-06-12] MEDS: levETIRAcetam INJ 750 MG in SODIUM CHLORIDE 0.9% INJ 100 ML IV SCH ×2 (08:43→22:01)
[2017-06-12] MEDS: FAMOTIDINE 20 MG/2 ML VIAL IV PUSH SCH ×2 (08:43→22:15)
[2017-06-12] MEDS: SODIUM CHLORIDE 0.9% FLUSH 10 ML FLUSH IV FLUSH SCH ×2 (08:43→22:03)
[2017-06-12] MEDS: CARVEDILOL 6.25 MG TAB PO SCH ×2 (08:44→22:01)
[2017-06-12] MEDS: INSULIN DETEMIR 100 UNITS/ML VIAL SQ SCH ×2 (08:44→22:02)
[2017-06-12] MEDS: NYSTATIN 100,000 U/GM PWD 15 GM BTL TOPICAL SCH ×2 (08:45→22:03)
[2017-06-12] MEDS: COLLAGENASE OINT 30 GM TUBE TOPICAL SCH (08:45)
--- NOTE | 2017-06-12 09:44 | RADRPT ---
EXAM DATE/TIME: 05/25/2017 17:41 [facility] COMPARISON: No previous studies available for comparison. INDICATIONS : Patient with altered mental status in need of lumbar puncture to rule out meningitis. MEDICAL HISTORY : Chronic low back pain, Diabetes, HLD, HTN SURGICAL HISTORY : ENCOUNTER: Initial ACUITY: 4 - 6 days PAIN SCORE: 0/10 LUMBAR PUNCTURE TIME: 1756 hours FLUORO TIME: 3.1 minutes IMAGE SERIES: 0 ACCESS LEVEL: L2-3 OPENING PRESSURE: 19 cm of water CLOSING PRESSURE: Not requested. FLUID: 16 cc of clear, yellow CSF was collected and sent to the laboratory for analysis. PROCEDURE : 1. Fluoroscopic guided lumbar puncture. 2. Recording of opening pressure. The risks, benefits and alternatives to the procedure were explained and verbal and written consent w as obtained. The site was prepped in sterile fashion. Full sterile technique was used, including ca p, mask, sterile gloves and gown and a large sterile sheet. Hand hygiene and 2% chlorhexidine and/or betadine/alcohol prep was utilized per protocol for cutaneous antisepsis. The skin and subcutaneous tissues were infiltrated with local anesthetic solution. With fluoroscopic guidance the lumbar thecal sac was punctured at the above level described above and the opening pressure was recorded. The above described fluid was removed without difficulty. The patient tolerated the procedure well and there were no complications. CONCLUSION: Uncomplicated fluoroscopically guided lumbar puncture with pressures as above. Shoaib Davis MD on June 12, 2017 at 9:41 Board Certified Radiologist. This report was verified electronically.
--- NOTE | 2017-06-12 12:14 | HHI.CCPN ---
Subjective Remarks/Hospital Course 66-year-old female presents confused and lethargic. Patient reportedly was recently seen today at an urgent care and received an injection for low back pain. Patient here denies headaches, chest pain or shortness of breath, abdominal pain or extremity pain. Patient does complain of low back pain. at bedside states that they're visiting from out of state for the past 3 months and will be returning back to their home state in a week. reports patient has chronic low back pain but this exacerbated over the last 24 hours starting yesterday morning. Patient was seen earlier today by her chiropractor for an adjustment and then was referred to an urgent care. Patient reportedly had a fever at the chiropractor's office and felt cold and clammy. At the urgent care patient was evaluated and reportedly had an injection of a nonsteroidal medication as she is diabetic and he did not want to give her a steroid injection. Patient went home about 1:00 PM she was drowsy so sat down in a chair and fell asleep according to the . He tried to awaken her at 4:30 and noticed that she was confusional and lethargic. He attempted to continue to awaken her over the next 2-3 hours and because she was not improving decided finally to call EMS to transport her to the emergency room. Patient and spouse denied any recent injury or fall. Patient was ambulatory this morning but this evening has difficulty elevating her lower extremities as well as she was generally extremely weak. 05/21 Patient is on BIPAP 12/5 with 45% FIO2. Afebrile. Awake. Renal function is improving with Cr: 1.87 from 2.74. 05/22 No events overnight. Patient is more awake and alert off BIPAP. Renal function is improving with Cr: 1.07 from 1.87. delayed note entry. consulted and seen at ~1500. RECONSULT NOTE: 05/30: reconsulted for worsening hypoxemia. now on 6L facemask. please refer to prior consult note for detailed medical history. In brief, 66yF lethargic female, back pain after injection, ? discitis/osteo, on abx for group B strep, worsening fever, tachycardia, tachypnea, o2 requirement to 6L facemask and RR up to 40s. patient unable to provide additional history but does appear in distress. 05/31: Patient remains encephalopathic, on high flow O2 via nasal cannula, this morning was on 60 L/m 55% FiO2. Subsequently has dropped to 30 L/m to extubate percent FiO2. Given 80 mg IV Lasix with no response. Subsequently given Bumex 2 mg IV push and started on Bumex drip at 1 mg/h to attempt to diurese in an effort to improve respiratory status however has not had any increase in urine output with Bumex drip. Creatinine came back elevated at 2.13. Suspect acute kidney injury/ATN which may be a reason for poor response to diuretics. She also spiked a temperature of 103 for which IV Ofirmev was ordered. 06/01: intubated overnight and hypotensive requiring vasopressors. now remains in shock on 2 vasopressors. bedside critical care echo demonstrates hyperdynamic LV with completely collapsed IVC. gave 2L bolus and started on mivf @ 100 cc/hr. still spiking fevers. discussed with Dr. Portillo and plan to repeat LP as well as cultures and imaging to look for source. clinically worse today. 06/02: off vasopressors. remains intubated and sedated, very encephalopathic. MRI with new punctate strokes. STEVEN being done today. also ? abscess in the pelvis of unknown origin, maybe contained diverticulitis? CT guided drainage. although some improvements in hemodynamics, no improvements in vent or encephalopathy. off pathway. 06/03: IR re-ct scan without any evidence of abdominal abscess. blood glucose still not controlled despite high dose algorithm. wbc downtrending. 06/04: wbc continues to downtrend. Cr improving as well. very hypokalemic despite aggressive replacement. blood glucose now < 200, but using high dose insulin drip and levemir. encephalopathy persists. 06/05: clinically improving. weakly following commands this morning. renal function improved. EEG negative for seizures. still too sleepy for safe extubation, but improved from yesterday. 06/06: continues to improve. still weakly following commands. failing SBT- on 20 of PSV with small tidal volumes and very tachypneic. slightly more awake, but still not awake enough for safe extubation. 06/07: Currently tolerating CPAP 15 PSV. Opens eyes tracks. Weekly follows commands on the lower extremity but delayed response. Remains off all sedation approximately 36 hours now. is at the bedside updated 06/08: Fever 100.8, WBC 15.4. But slightly more awake and focussed today. Wiggles toes to command with a delay. CXR shows moderate effusion- plan for CT guided thoracentesis today. D/W IR Dr. Quintanilla and ID Dr. Portillo 06/09: Appears to be becoming more septic. Tmax 101.8. WBC count 14.8 with 21 % bands. Zyvox and cefepime started by Dr. Portillo. Chest CT yesterday showed bilateral dense consolidation at the bases left more than right. Moderate to thick secretion on bronchoscopy and bilateral lower lobes today. Bilateral airways inflamed and friable. New fever, sepsis most likely secondary to healthcare associated pneumonia. s/p right thoracentesis with 225 ml of fluid removed, exudative by light criteria. Hemorrhagic fluid. EEG 06/08 showed moderate encephalopathy, no seizures 06/10: Continues to spike fever up to 101.6. White count stable at 14.7. Had bronchoscopy with thick secretions removed from bilateral lower lobes yesterday. BAL studies are pending. Tolerate CPAP with high pressure support. Chest x-ray slightly improved 06/11: Continues to spike fever overnight fever up to 103. Cultures remain negative except for Marco Antonio UTI. Appears more lethargic. Not able to extubate due to mental status. Will request general surgery consult for tracheostomy, and GI for PEG placement 06/12: Still spiking fever 101.3 overnight, all recent culture and BAL negative. Slightly more awake, but very delayed in following commands. General surgery Dr. Hernandez will trach in OR tomorrow. Creat slightly improved Objective Vital Signs Date Time Temp Pulse Resp B/P (MAP) Pulse Ox O2 Delivery O2 Flow Rate FiO2 06/12/17 09:55 93 45 06/12/17 06:00 85 06/12/17 04:00 99.4 21 125/58 (80) 06/11/17 08:39 Ventilator 06/09/17 07:00 5.00 Intake and Output 06/12/17 06/12/17 06/13/17 08:00 16:00 00:00 Intake Total 1407 ml 151 ml Output Total 1700 ml Balance -293 ml 151 ml Result Diagram: 06/11/17 0510 06/12/17 0530 Other Results Microbiology Date/Time Source Procedure Growth Status 06/10/17 10:55 Urine Clean Catch Urine Culture - Final Marco Antonio Species Complete Imaging Last Impressions Liver Ultrasound 05/21/17 0000 Signed Impressions: Service Date/Time: Sunday, May 21, 2017 10:32 - CONCLUSION: 1. Hepatic steatosis. 2. Gallstones 3. Limited evaluation of the right kidney. Santana Lamar MD Chest X-Ray 05/21/17 0000 Signed Impressions: Service Date/Time: Sunday, May 21, 2017 06:17 - CONCLUSION: 1. Limited suboptimal study with motion artifact. 2. No definite acute cardiac pulmonary disease. Austin Orellana MD Head CT [id number]/20/[id number] Signed Impressions: Service Date/Time: Saturday, May 20, 2017 19:55 - CONCLUSION: 1. No acute findings. Retention cyst right maxillary sinus. Jakob Scruggs MD Objective Remarks GENERAL: Patient is 66 yo lying in bed, intubated, off all sedation SKIN: Warm and dry. HEAD: Normocephalic. EYES: No scleral icterus. No injection or drainage. NECK: Trachea midline. large neck prevents accurate assessment of JVD. LIJ central line in place CARDIOVASCULAR: Tachycardic rate, regular rhythm. RESPIRATORY: intubated, fio2 45%, coarse breath sounds bilaterally, slightly tachypneic. Tidal volumes 350-400 ml PSV 15/8/45% GASTROINTESTINAL: Abdomen morbidly obese, soft, non-tender, nondistended. MSK: No cyanosis, or edema. NEURO: Opens eyes to command. Weakly follows commands in lower extremity, delayed response. 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 toxic/metabolic, Multifocal CVA, hypoxic respiratory failure, sepsis. some improvements in mental status. still too somnolent for safe extubation. Respiratory failure persists. s/p right thoracentesis. will continue diuresis. continue daily SBTs while we optimize pulmonary function. Trach in OR 06/13/17 Plan: Neuro: Metabolic Encephalopathy- slight improvement. 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 Remains encephalopathic - Received Versed fentanyl and rocuronium for bronchoscopy 06/09/17, off all continuos sedation - Continue amantadine and, modafinil for wakefulness. - frequent neuro checks, continue aspirin - Prev TSH borderline high, T4 low. Continue Synthroid 25 mcg IV daily started 06/08/17. - Ammonia normal. B12 normal - EEG 06/08 moderate encephalopathy, carotid ultrasound no significant stenosis Resp: Acute hypoxic and hypercarbic respiratory failure - persistent. Right pleural effusion Bibasilar infiltrates/HCAP - Bronchoscopy showed inflamed airways, thick secretion bilateral lower lobes. - ABX per Dr. Portillo ID, see ID section - vent bundle, hob at 30 degrees, nebs. Up to chair today - wean fio2 for spo2 > 90% Trach in OR tomorrow. Decrease to 20 q12 - daily SBTs. 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 - Right thoracentesis with fluid studies-exudative effusion, cultures neg to date Renal: Acute kidney injury- resolved - continue Reid - forced diuresis with Lasix goal net -2L/24h. - daily bmp FEN/GI: Shock liver - persistent Morbid obesity Hypokalemia Volume overload Acute protein calorie malnutrition- moderate - Glucerna tube feeds - ICU electrolyte protocol - daily bmp - trend LFTs - GI consulted for PEG, planned for 06/14 Heme/ID: New Fever ? drug related Possible HCAP marc oantonio UTI Septic Shock - resolved Discitis Strep bacteremia (recent blood cultures negative) - abx per ID Dr. Portillo. Continue Ceftriaxone IV q12, Continue Flagyl, Diflucan , Cefepime and Zyvox. Dr. Portillo planning consolidation today - Bronch with BAL 06/09/17. Follow up on studies - cultures NGTD except initial 4/4 bottles with group B strp. Repeat blood cultures today - There is clinical concern for endocarditis (4/4 bottle strep, brain emboli delfino though STEVEN negative) - if discitis is truly the source and no improvements, could consider disc biopsy in the future. - F/U Send pleural fluid studies and BAL Endocrine: Severe hyperglycemia Relative Adrenal Insufficiency Possible hyperthyroidism - steroid tapered, now DCd - severe hyperglycemia despite high dose insulin drip - continue insulin drip Algorithm #4. - Levemir to 80 units SQ q12h - On levothyroxine 25 g IV daily Prophylaxis: - pepcid - SCDs - SQH Lines: - Reid: keep while active diuresis. Level 3. General surgery and GI consult for trach and PEG. Planned over next two days Dex Dillon MD Jun 12, 2017 12:14
--- NOTE | 2017-06-12 12:20 | HHI.IDPN ---
Subjective Subjective Remarks is a 66-year-old female presents confused and lethargic. Patient reportedly was recently seen today at an urgent care and received an injection for low back pain. Patient here denies headaches, chest pain or shortness of breath, abdominal pain or extremity pain. Patient does complain of low back pain. at bedside states that they're visiting from out of state for the past 3 months and will be returning back to their home state in a week. reports patient has chronic low back pain but this exacerbated over the last 24 hours starting yesterday morning. Patient was seen earlier today by her chiropractor for an adjustment and then was referred to an urgent care. Patient reportedly had a fever at the chiropractor's office and felt cold and clammy. At the urgent care patient was evaluated and reportedly had an injection of a nonsteroidal medication as she is diabetic and he did not want to give her a steroid injection. Patient went home about 1:00 PM she was drowsy so sat down in a chair and fell asleep according to the . He tried to awaken her at 4:30 and noticed that she was confusional and lethargic. He attempted to continue to awaken her over the next 2-3 hours and because she was not improving decided finally to call EMS to transport her to the emergency room. Patient and spouse denied any recent injury or fall. Patient was ambulatory this morning but this evening has difficulty elevating her lower extremities as well as she was generally extremely weak. ID following for Strep bacteremia, probable endocarditis, Septic emboli cerebral , discitis based on 1st imaging. bilateral LE cellulitis. Overnight events reviewed. Opens eyes spontaneously. Tmax 101.3 F Not on pressors. No rash No diarrhea. Plan for trach and PEG. Antibiotics CFTX Cefepime IV Zyvox Lines Line sites with no e.o infection Past Medical History Diabetes Dyslipidemia Hypertension Chronic back pain sees a chiropracter. Chronic lower extremity swelling. Never had an ECHO before per pt and spouse. ? Sleep apnea. Allergies: Coded Allergies: No Known Allergies (Unverified , 05/20/17) Objective . Vital Signs Date Time Temp Pulse Resp B/P (MAP) Pulse Ox O2 Delivery O2 Flow Rate FiO2 06/12/17 09:55 93 45 06/12/17 07:38 97 45 06/12/17 06:00 85 06/12/17 04:00 99.4 85 21 125/58 (80) 100 06/12/17 04:00 50 06/12/17 04:00 86 06/12/17 03:50 99 45 06/12/17 02:00 85 06/12/17 01:05 100 45 06/12/17 00:00 50 06/12/17 00:00 99.4 83 20 109/55 (73) 95 06/12/17 00:00 84 06/11/17 22:00 82 06/11/17 21:55 97 45 06/11/17 20:11 97 45 06/11/17 20:00 50 06/11/17 20:00 101.3 93 20 119/58 (78) 97 06/11/17 20:00 86 06/11/17 18:00 92 06/11/17 17:45 45 06/11/17 16:38 97 45 06/11/17 16:00 98.9 90 18 123/59 (80) 93 06/11/17 16:00 91 06/11/17 16:00 45 06/11/17 14:00 89 06/11/17 13:34 97 45 06/12/17 06/12/17 06/13/17 15:00 23:00 07:00 Intake Total 151 ml Balance 151 ml IV Total 151 ml . Laboratory Tests Test 06/11/17 05:10 White Blood Count 13.2 TH/MM3 Red Blood Count 2.92 MIL/MM3 Hemoglobin 9.2 GM/DL Hematocrit 26.9 % Mean Corpuscular Volume 92.3 FL Mean Corpuscular Hemoglobin 31.5 PG Mean Corpuscular Hemoglobin Concent 34.1 % Red Cell Distribution Width 17.2 % Platelet Count 164 TH/MM3 Mean Platelet Volume 11.2 FL Laboratory Tests Test 06/11/17 05:10 06/12/17 05:30 Blood Urea Nitrogen 17 MG/DL 18 MG/DL Creatinine 1.32 MG/DL 1.14 MG/DL Random Glucose 215 MG/DL 268 MG/DL Calcium Level 7.6 MG/DL 7.3 MG/DL Sodium Level 138 MEQ/L 135 MEQ/L Potassium Level 3.7 MEQ/L 3.6 MEQ/L Chloride Level 97 MEQ/L 95 MEQ/L Carbon Dioxide Level 32.8 MEQ/L 30.9 MEQ/L Anion Gap 8 MEQ/L 9 MEQ/L Estimat Glomerular Filtration Rate 40 ML/MIN 48 ML/MIN Total Protein 5.9 GM/DL Albumin 1.4 GM/DL Magnesium Level 1.8 MG/DL Alkaline Phosphatase 418 U/L Aspartate Amino Transf (AST/SGOT) 76 U/L Alanine Aminotransferase (ALT/SGPT) 32 U/L Total Bilirubin 0.8 MG/DL Protein Corrected Calcium 7.9 MG/DL Microbiology Date/Time Source Procedure Growth Status 06/11/17 16:04 Blood Peripheral Aerobic Blood Culture - Preliminary NO GROWTH IN 1 DAY Resulted 06/11/17 16:04 Blood Peripheral Anaerobic Blood Culture - Preliminary NO GROWTH IN 1 DAY Resulted 06/11/17 15:49 Blood Peripheral Aerobic Blood Culture - Preliminary NO GROWTH IN 1 DAY Resulted 06/11/17 15:49 Blood Peripheral Anaerobic Blood Culture - Preliminary NO GROWTH IN 1 DAY Resulted 06/10/17 10:55 Urine Clean Catch Urine Culture - Final Veronica Species Complete Imaging Last Impressions Lumbar Spine MRI 06/03/17 0000 Signed Impressions: Service Date/Time: Saturday, June 03, 2017 15:42 - CONCLUSION: The MRI findings after contrast administration are not convincing for presence of active infection within the L3/L4 disc, adjacent vertebral bodies or epidural space/adjacent soft tissues. Santana Eric MD Pelvis CT 06/02/17 0000 Signed Impressions: Service Date/Time: Friday, June 02, 2017 17:29 - CONCLUSION: No evidence of intra-abdominal abscess collection. Nikita Damon MD Chest X-Ray 06/02/17 0000 Signed Impressions: Service Date/Time: Friday, June 02, 2017 15:14 - CONCLUSION: 1. Cardiomegaly. 2. Perihilar infiltrates consistent with mild to moderate pulmonary vascular congestion versus pneumonia. 3. Small right pleural effusion. 4. Multiple tubes and lines are stable. Nikita Damon MD Abdomen X-Ray 06/02/17 0000 Signed Impressions: Service Date/Time: Friday, June 02, 2017 15:20 - CONCLUSION: OG tube in the stomach. Mike Davis MD FACR Chest CT 06/01/17 0000 Signed Impressions: Service Date/Time: May 18:49 - CONCLUSION: 1. Dense consolidation in both posterior lower lobes right greater than left with air bronchograms. This could represent pneumonia. 2. Small bilateral pleural effusions. 3. Mild cardiomegaly. Austin Orellana MD Brain MRI 06/01/17 0000 Signed Impressions: Service Date/Time: May 19:15 - CONCLUSION: 1. Multiple new small scattered punctate areas of restricted diffusion consistent with small areas of infarction. This could be secondary to emboli. 2. No acute hemorrhage or mass effect. 3. Acute sinusitis in the ethmoidal air cells and sphenoid sinus with air fluid levels. Austin Orellana MD Abdomen/Pelvis CT 06/01/17 0000 Signed Impressions: Service Date/Time: May 18:49 - CONCLUSION: 1. Suboptimal opacification of the bowel with the distal small bowel unopacified. There is a questionable abnormal gas collection in the anterior lower pelvis. An abscess is not excluded. A repeat study is recommended after additional oral contrast is given. 2. Consolidation in both posterior lung bases with small pleural effusions. Austin Orellana MD Renal Ultrasound 05/31/17 0000 Signed Impressions: Service Date/Time: Wednesday, May 31, 2017 20:47 - CONCLUSION: 1. Suboptimal exam with visualization. 2. No evidence of hydronephrosis. 3. Cyst extending off right kidney. Austin Orellana MD Lower Extremity Ultrasound 05/29/17 0000 Signed Impressions: Service Date/Time: Monday, May 29, 2017 13:10 - CONCLUSION: 1. No evidence of deep venous thrombosis. Monty Gross MD Tumor Localization 05/26/17 0000 Signed Impressions: Service Date/Time: Friday, May 26, 2017 13:36 - CONCLUSION: No abnormal uptake identified to suggest infection. Nikita Damon MD Liver Ultrasound 05/21/17 0000 Signed Impressions: Service Date/Time: Sunday, May 21, 2017 10:32 - CONCLUSION: 1. Hepatic steatosis. 2. Gallstones 3. Limited evaluation of the right kidney. Santana Lamar MD Head CT [id number]/20/[id number] Signed Impressions: Service Date/Time: Saturday, May 20, 2017 19:55 - CONCLUSION: 1. No acute findings. Retention cyst right maxillary sinus. Jakob Scruggs MD Physical Exam GENERAL: Obese patient. sedated int'd on mech vent SKIN: No rashes. Ecchymosis noted. No Janeway lesion no splinter hemorrhages. HEAD: Atraumatic. Normocephalic. EYES: Pupils equal round and reactive. Extraocular motions intact. No scleral icterus. No injection or drainage. ENT: Nose without bleeding, purulent drainage or septal hematoma. Throat without erythema, tonsillar hypertrophy or exudate. Uvula midline. Airway patent. NECK: Large neck, intubated. Supple CARDIOVASCULAR: Regular rate and rhythm without murmurs. well perused periphery with good refill RESPIRATORY: Breath sounds equal bilaterally.Clear to auscultation anteriorly GASTROINTESTINAL: Abdomen soft, non-tender, nondistended. Obese. No hepatosplenomegaly Incontinent of dark liquid stool chiu in place. MUSCULOSKELETAL: Extremities without clubbing, cyanosis. Pedal edema diminished , skin over legs now wrinkled. NEUROLOGICAL: Psych unable to assess IV line sites with no e/o infection. Assessment & Plan Remarks Septic Shock with MODS HCAP/plus aspiration pneumonia. nl resp kleber on sputum clx Meningitis/discitis(likely partially treated or parameningeal focus related CSF changes) New onset seizures likely secondary to ARCHITECT INTERN infection process. Strep Grp B bacteremia sources: ? GI, skin as source. STEVEN neg, but done 2 weeks after abx were started ? embolic strokes secondary to probable endocarditis. Candiduria: cath related infection. Bilateral R> L LE cellulitis: improved. Acute renal failure UO improving. GFR > 40 Acute resp failure: pulm edema,aspiration PNA, sleep apnea. MRI of T spine negative Abnormal LFTs: sepsis related, ? rhabdo elevated CK. HTN DM2 uncontrolled. Obesity BMI 49.7 kg/m2 Diarrhea Cdiff negative. Recs: Continue Ceftriaxone IV q12 for possible meningitis/epidural abscess,covers endocarditis if emboli are possibly septic. DC Flagyl DC Diflucan DC Cefepime IV DC Zyvox IV Follow cultures. Follow clinically. d/w and Nan Myers MD Jun 12, 2017 12:20
--- NOTE | 2017-06-12 14:25 | PD.CONS ---
cc: Jakob Hernandez MD [facility] Service General Surgery Consult Requested By Dr. Dillon Reason for Consult Tracheostomy tube placement Primary Care Physician No Primary Care Physician History of Present Illness This is a 66-year-old female with a past medical history of diabetes mellitus and hypertension. The patient was admitted on May 20. On this day, she woke up with bad sciatica pain and her took her to a chiropractor for an adjustment. After the adjustment, the patient had shivers and the chiropractor suggested the patient to the emergency department. The patient went to an urgent care and was given a steroid injection in her hip. The took the patient home after the injection and the patient rested in bed for about 4 hours. When the went to wake the patient, the patient was drowsy and confused. This is not her normal behavior. After several attempts to wake the patient, the called [facility] and the patient was transported to the emergency department. The patient has an extensive hospitalization and was found to have pneumonia. 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 The patient is positive for strep bacteria. Infectious disease has been following the patient since May 23. The patient's hospitalization is complicated by respiratory failure in need of oral intubation and mechanical ventilation. In the last 24 hours, an MRI of the brain was completed which showed new emboli and possible septic emboli. In the past 24-48 hours the patient has been febrile with a temperature max of 103. The patient is scheduled to have a STEVEN today at the bedside. Yesterday, a CT abdomen and pelvis was obtained which it is questionable for a abscess in the anterior pelvis. A General Surgery consultation has been requested for evaluation of abscess. Reconsult on June 12 for tracheostomy tube placement. Review of Systems ROS Limitations: Intubated Past Family Social History Past Medical History Diabetes mellitus with well-controlled sugars at home Hypertension Past Surgical History Hysterectomy Allergies: Coded Allergies: No Known Allergies (Unverified , 05/20/17) Active Ordered Medications Current Medications Medications (Trade) Dose Ordered Sig/Erasmo Route Start Time Stop Time Status Last Admin (Heparin Inj) 5,000 units Q8H SQ 05/20/17 22:00 Future Hold 06/12/17 04:33 Miscellaneous Information 1 Q361D XX 05/20/17 22:30 (Chlorhexidine 2% Cloth) 3 pack Taper DAILY@04 TOP 05/21/17 04:00 05/17/18 03:59 06/12/17 04:00 (Chlorhexidine 2% Cloth) 3 pack UNSCH PRN TOP 05/20/17 22:30 (Tylenol) 650 mg Q6H PRN PO 05/21/17 01:30 (Duoneb Neb) 1 ampule Q2HR NEB PRN NEB 05/21/17 05:45 06/07/17 20:00 (Glucagon Inj) 1 mg UNSCH PRN OTHER 05/22/17 07:30 (NS Flush) 2 ml UNSCH PRN IV FLUSH 05/24/17 12:15 06/04/17 20:38 (NS Flush) 2 ml BID IV FLUSH 05/24/17 21:00 06/12/17 08:43 (Narcan Inj) 0.4 mg UNSCH PRN IV PUSH 05/24/17 12:15 (May-Colace) 1 tab BID PO 05/24/17 21:00 06/12/17 08:42 (Milk Of Magnesia Liq) 30 ml Q12H PRN PO 05/24/17 12:15 05/24/17 13:45 (Senokot) 17.2 mg Q12H PRN PO 05/24/17 12:15 (Dulcolax Supp) 10 mg DAILY PRN RECTAL 05/24/17 12:15 (Lactulose Liq) 30 ml DAILY PRN PO 05/24/17 12:15 Ceftriaxone Sodium 2000 mg/ Sodium Chloride 100 ml @ 200 mls/hr Q12H IV 05/25/17 17:00 06/12/17 04:32 (Dilantin Inj) 100 mg Q8HR IV 05/26/17 22:00 06/12/17 04:33 (Mycostatin Powder) 1 applic Q12HR TOPICAL 05/30/17 10:00 06/12/17 08:45 (Tylenol Supp) 650 mg Q6H PRN RECTAL 05/30/17 13:15 05/30/17 14:06 (Ofirmev 1000 Mg/ 100 ml Inj) 1,000 mg Q6H PRN IV 05/31/17 16:30 06/11/17 20:08 Insulin Human Regular 100 units/ Sodium Chloride 100 ml @ 3 mls/hr TITRATE PRN IV 06/01/17 11:45 06/12/17 11:12 (D50w (Vial) Inj) 50 ml UNSCH PRN IV PUSH 06/01/17 11:45 Levetriacetam 750 mg/Sodium Chloride 107.5 ml @ 430 mls/hr Q12HR IV 06/01/17 21:00 06/12/17 08:43 (Mag-Ox) 800 mg UNSCH PRN PO 06/03/17 11:00 Magnesium Sulfate 4 gm/Sodium Chloride 100 ml @ 50 mls/hr UNSCH PRN IV 06/03/17 11:00 Magnesium Sulfate 2 gm/Sodium Chloride 100 ml @ 50 mls/hr UNSCH PRN IV 06/03/17 11:00 06/08/17 17:47 Potassium Chloride 100 ml @ 50 mls/hr Q2H PRN IV 06/03/17 11:00 06/08/17 13:15 Potassium Chloride 100 ml @ 50 mls/hr Q2H PRN IV 06/03/17 11:00 Potassium Chloride 100 ml @ 50 mls/hr Q2H PRN IV 06/03/17 11:00 06/04/17 06:36 Potassium Chloride 100 ml @ 25 mls/hr UNSCH PRN IV 06/03/17 11:00 06/10/17 06:46 (K-Phos) 2,000 mg Q4H PRN PO 06/03/17 11:00 (K-Phos) 2,000 mg UNSCH PRN PO/TUBE 06/03/17 11:00 Potassium Phosphate 30 mmol/ Sodium Chloride 260 ml @ 42 mls/hr UNSCH PRN IV 06/03/17 11:00 06/07/17 11:08 Sodium Phosphate 30 mmol/Sodium Chloride 250 ml @ 42 mls/hr UNSCH PRN IV 06/03/17 11:00 06/05/17 11:06 (Aspirin) 325 mg DAILY PO 06/03/17 11:00 06/12/17 08:43 (Symmetrel Liq) 200 mg BID@07,12 PO 06/03/17 12:00 06/12/17 11:07 (Pepcid Inj) 20 mg Q12HR IV PUSH 06/05/17 21:00 06/12/17 08:43 (Provigil) 200 mg DAILY PO 06/06/17 09:00 06/12/17 08:42 (Trandate Inj) 10 mg Q4H PRN IV PUSH 06/05/17 23:00 06/06/17 16:51 (Apresoline Inj) 20 mg Q4H PRN IV PUSH 06/05/17 23:00 (Free Water) VOLUME: 300 ML Q6HR G-TUBE 06/06/17 11:00 06/12/17 11:06 (Coreg) 6.25 mg Q12HR PO 06/06/17 11:30 06/12/17 08:44 (Levemir Inj) 80 units Q12HR SQ 06/07/17 21:00 06/12/17 08:44 (Synthroid Inj) 25 mcg DAILY@06 IV PUSH 06/08/17 10:00 06/12/17 04:33 (Santyl Oint) 1 applic DAILY TOPICAL 06/10/17 09:00 06/12/17 08:45 (Lasix Inj) 20 mg Q12H IV PUSH 06/12/17 23:00 Family History Noncontributory Social History Negative for tobacco use Negative for EtOH use Negative for illicit drug use Patient lives with . Physical Exam Vital Signs Vital Signs Date Time Temp Pulse Resp B/P (MAP) Pulse Ox O2 Delivery O2 Flow Rate FiO2 06/12/17 13:06 94 45 06/12/17 13:00 85 19 108/51 (70) 94 06/12/17 12:01 98.3 83 22 105/53 (70) 95 06/12/17 12:00 50 06/12/17 12:00 83 06/12/17 11:00 83 21 107/53 (71) 94 06/12/17 10:00 84 06/12/17 10:00 84 20 106/70 (82) 96 06/12/17 09:55 93 45 06/12/17 09:00 86 22 121/58 (79) 96 06/12/17 08:00 50 06/12/17 08:00 98.7 88 25 120/57 (78) 95 06/12/17 08:00 88 06/12/17 07:38 97 45 06/12/17 07:00 86 23 113/54 (73) 95 06/12/17 06:00 85 06/12/17 06:00 85 21 110/51 (70) 98 06/12/17 05:01 85 23 103/51 (68) 100 06/12/17 04:00 99.4 85 21 125/58 (80) 100 06/12/17 04:00 50 06/12/17 04:00 86 06/12/17 03:50 99 45 06/12/17 02:00 85 06/12/17 01:05 100 45 06/12/17 00:00 50 06/12/17 00:00 99.4 83 20 109/55 (73) 95 06/12/17 00:00 84 06/11/17 22:00 82 06/11/17 21:55 97 45 06/11/17 20:11 97 45 06/11/17 20:00 50 06/11/17 20:00 101.3 93 20 119/58 (78) 97 06/11/17 20:00 86 06/11/17 18:00 92 06/11/17 17:45 45 06/11/17 16:38 97 45 06/11/17 16:00 98.9 90 18 123/59 (80) 93 06/11/17 16:00 91 06/11/17 16:00 45 Physical Exam GENERAL: Intubated/Sedated SKIN: Warm and dry. HEAD: Atraumatic. Normocephalic. EYES: Pupils equal and round. No scleral icterus. No injection or drainage. ENT: No nasal bleeding or discharge. Mucous membranes pink and moist. NECK: Trachea midline. Patient has a very thick neck CARDIOVASCULAR: Regular rate and rhythm. RESPIRATORY: No accessory muscle use. Clear to auscultation. Breath sounds equal bilaterally. On the ventilator GASTROINTESTINAL: Abdomen soft, non-tender, nondistended. Obese abdomen. MUSCULOSKELETAL: Extremities without clubbing, cyanosis, or edema. No obvious deformities. SCDs NEUROLOGICAL: Eyes open. Intubated. PSYCHIATRIC: Unable to examine. Laboratory Laboratory Tests Test 06/12/17 05:30 Blood Urea Nitrogen 18 Creatinine 1.14 Random Glucose 268 Total Protein 5.9 Albumin 1.4 Calcium Level 7.3 Magnesium Level 1.8 Alkaline Phosphatase 418 Aspartate Amino Transf (AST/SGOT) 76 Alanine Aminotransferase (ALT/SGPT) 32 Total Bilirubin 0.8 Sodium Level 135 Potassium Level 3.6 Chloride Level 95 Carbon Dioxide Level 30.9 Anion Gap 9 Estimat Glomerular Filtration Rate 48 Protein Corrected Calcium 7.9 Date/Time Source Procedure Growth Status 06/11/17 16:04 Blood Peripheral Aerobic Blood Culture - Preliminary NO GROWTH IN 1 DAY Resulted 06/11/17 16:04 Blood Peripheral Anaerobic Blood Culture - Preliminary NO GROWTH IN 1 DAY Resulted 06/08/17 15:08 Fluid Pleural Fluid Fungal Smear - Final NO FUNGAL ELEMENTS SEEN. Resulted 06/08/17 15:08 Fluid Pleural Fluid Fungal Culture Pending Resulted 06/09/17 10:25 Bronchial Washings Right Lower Lobe Fungal Smear - Final NO FUNGAL ELEMENTS SEEN. Resulted 06/09/17 10:25 Bronchial Washings Right Lower Lobe Fungal Culture Pending Resulted 06/10/17 10:55 Urine Clean Catch Urine Culture - Final Veronica Species Complete Result Diagram: 06/11/17 0510 06/12/17 0530 Imaging Last [address] 06/02/17 0000 Signed Impressions: Service Date/Time: Friday, June 02, 2017 17:29 - CONCLUSION: No evidence of intra-abdominal abscess collection. Nikita Damon MD Chest X-Ray 06/02/17 0000 Signed Impressions: Service Date/Time: Friday, June 02, 2017 15:14 - CONCLUSION: 1. Cardiomegaly. 2. Perihilar infiltrates consistent with mild to moderate pulmonary vascular congestion versus pneumonia. 3. Small right pleural effusion. 4. Multiple tubes and lines are stable. Nikita Damon MD Abdomen X-Ray 06/02/17 0000 Signed Impressions: Service Date/Time: Friday, June 02, 2017 15:20 - CONCLUSION: OG tube in the stomach. Mike Davis MD FACR Lumbar Spine MRI 06/01/17 0000 Signed Impressions: Service Date/Time: May 19:15 - CONCLUSION: 1. Atypical signal changes remain in the L3-4 disc and adjacent endplates The findings remain nonspecific. There is a moderate size posterior central epidural mass with mass effect on the anterior thecal sac. There is moderate central canal stenosis. The differential diagnosis includes disc protrusion versus small epidural abscess. A contrast enhanced lumbar spine study may be helpful for further evaluation. 2. Mild disc bulges at L2-3 and L4-5 levels with mild flattening the anterior thecal sac. Austin Orellana MD Chest CT 06/01/17 0000 Signed Impressions: Service Date/Time: May 18:49 - CONCLUSION: 1. Dense consolidation in both posterior lower lobes right greater than left with air bronchograms. This could represent pneumonia. 2. Small bilateral pleural effusions. 3. Mild cardiomegaly. Austin Orellana MD Brain MRI 06/01/17 0000 Signed Impressions: Service Date/Time: May 19:15 - CONCLUSION: 1. Multiple new small scattered punctate areas of restricted diffusion consistent with small areas of infarction. This could be secondary to emboli. 2. No acute hemorrhage or mass effect. 3. Acute sinusitis in the ethmoidal air cells and sphenoid sinus with air fluid levels. Austin Orellana MD Abdomen/Pelvis CT 06/01/17 0000 Signed Impressions: Service Date/Time: May 18:49 - CONCLUSION: 1. Suboptimal opacification of the bowel with the distal small bowel unopacified. There is a questionable abnormal gas collection in the anterior lower pelvis. An abscess is not excluded. A repeat study is recommended after additional oral contrast is given. 2. Consolidation in both posterior lung bases with small pleural effusions. Austin Orellana MD Assessment and Plan Problem List: (1) Respiratory failure ICD Codes: J96.90 - Respiratory failure, unspecified, unspecified whether with hypoxia or hypercapnia Status: Acute (2) Dependent on ventilator ICD Codes: Z99.11 - Dependence on respirator [ventilator] status Status: Acute (3) Septic embolism ICD Codes: I26.90 - Septic pulmonary embolism without acute cor pulmonale (4) Diabetes ICD Codes: E11.9 - Type 2 diabetes mellitus without complications Status: Acute (5) Altered mental status ICD Codes: R41.82 - Altered mental status, unspecified Status: Acute (6) Septic shock ICD Codes: A41.9 - Sepsis, unspecified organism; R65.21 - Severe sepsis with septic shock (7) Acute renal failure ICD Codes: N17.9 - Acute kidney failure, unspecified Status: Acute (8) SIRS (systemic inflammatory response syndrome) ICD Codes: R65.10 - Systemic inflammatory response syndrome (SIRS) of non- infectious origin without acute organ dysfunction Status: Acute (9) Bacteremia due to group B Streptococcus ICD Codes: R78.81 - Bacteremia (10) Morbid obesity ICD Codes: E66.01 - Morbid (severe) obesity due to excess calories (11) Cerebral septic emboli ICD Codes: I76 - Septic arterial embolism; I66.9 - Occlusion and stenosis of unspecified cerebral artery Assessment and Plan 66 year old female with VDRF in need of tracheostomy tube placement -Plan for trach placement tomorrow in OR at 11am -Hold Heparin -NPO after MN -Obtain consents -Discussed with at bedside -Discussed with Dr. Dillon Discussed Condition With Dr. David Crockett Attending Statement Patient seen at bedside Discussed with at the bedside he understands about tracheostomy Discussed with Dr. Dillon user experience developer Will need operative placement of tracheostomy secondary to body habitus NOTE FOR SURGICAL ATTENDING, DR. JAKOB HERNANDEZ I agree with above assessment and plan. The exam, history, and the medical decision-making described in the above note were completed with the assistance of the mid-level provider. I reviewed and agree with the findings presented. I attest that I had a [id number] encounter with the patient on the same day, and personally performed and documented my assessment and findings in the medical record. The following services were provided during this hospital visit: Chart data review, vital sign assessments/reviewing monitor data Review of consultations notes if present. Medication orders/review and/or management Ordering and/or reviewing lab tests Ordering and/or interpreting/reviewing x-rays and/or diagnostic studies Care of the patient and discussion of the patient with the care team Documentation time To help prompt me to consider important information that might be impacting today's encounter and assessment, information from prior notes written by myself or my colleagues may have been "brought forward/copy and pasted" into today's note. Problem Qualifiers (1) Respiratory failure: (2) Diabetes: (3) Altered mental status: Qualified Codes: R41.82 - Altered mental status, unspecified (4) Acute renal failure: Qualified Codes: N17.9 - Acute kidney failure, unspecified Shanell Moran Jun 12, 2017 14:25 Jkaob Hernandez MD Jun 13, 2017 09:10
--- NOTE | 2017-06-12 18:24 | MG ---
cc: BRAYAN ARGUELLES Lab No: Date: 06/12/2017 Age: Sex: F Race: TEST NUMBER [id number] Intubated, restless, confused, measles. DESCRIPTION Diffuse 6 Hz slowing is seen. The recording overall is synchronous and symmetric. Photic stimulation was performed without significant posterior driving. Hyperventilation not performed. No hemisphere asymmetries are noted. No epileptiform or seizure activity was seen. IMPRESSION Diffuse slowing consistent with a moderate diffuse encephalopathy. No focal abnormalities are noted. No seizure activity was seen. MD JESUS Clifton/KK /5:27 PM /6:22 PM
--- NOTE | 2017-06-12 19:11 | HHI.PR ---
Subjective Remarks 66 YOObese WF with Hypercapnoea, Cellulitis, Bactremia Intubated Off sedation Follows simple commands No Fever Objective Vital Signs Vital Signs Date Time Temp Pulse Resp B/P (MAP) Pulse Ox O2 Delivery O2 Flow Rate FiO2 06/12/17 18:00 89 18 110/54 (72) 95 06/12/17 18:00 89 06/12/17 17:01 87 22 104/51 (68) 97 06/12/17 16:43 93 45 06/12/17 16:01 98.6 86 21 115/58 (77) 94 06/12/17 16:00 50 06/12/17 16:00 86 06/12/17 15:01 84 22 116/56 (76) 94 06/12/17 14:00 83 06/12/17 14:00 83 22 111/55 (73) 95 06/12/17 13:06 94 45 06/12/17 13:00 85 19 108/51 (70) 94 06/12/17 12:01 98.3 83 22 105/53 (70) 95 06/12/17 12:00 50 06/12/17 12:00 83 06/12/17 11:00 83 21 107/53 (71) 94 06/12/17 10:00 84 06/12/17 10:00 84 20 106/70 (82) 96 06/12/17 09:55 93 45 06/12/17 09:00 86 22 121/58 (79) 96 06/12/17 08:00 50 06/12/17 08:00 98.7 88 25 120/57 (78) 95 06/12/17 08:00 88 06/12/17 07:38 97 45 06/12/17 07:00 86 23 113/54 (73) 95 06/12/17 06:00 85 06/12/17 06:00 85 21 110/51 (70) 98 06/12/17 05:01 85 23 103/51 (68) 100 06/12/17 04:00 99.4 85 21 125/58 (80) 100 06/12/17 04:00 50 06/12/17 04:00 86 06/12/17 03:50 99 45 06/12/17 02:00 85 06/12/17 01:05 100 45 06/12/17 00:00 50 06/12/17 00:00 99.4 83 20 109/55 (73) 95 06/12/17 00:00 84 06/11/17 22:00 82 06/11/17 21:55 97 45 06/11/17 20:11 97 45 06/11/17 20:00 50 06/11/17 20:00 101.3 93 20 119/58 (78) 97 06/11/17 20:00 86 I/O 06/11/17 06/11/17 06/11/17 06/12/17 06/12/17 06/12/17 07:00 15:00 23:00 07:00 15:00 23:00 Intake Total 1387 ml 507.5 ml 2111.5 ml 1407 ml 358.5 ml 1475 ml Output Total 1400 ml 1050 ml 1700 ml 650 ml Balance -13 ml 507.5 ml 1061.5 ml -293 ml 358.5 ml 825 ml Intake Oral 0 ml IV Total 100 ml 507.5 ml 807.5 ml 100 ml 358.5 ml 233 ml Tube Feeding 687 ml 704 ml 707 ml 642 ml Other 600 ml 600 ml 600 ml 600 ml Output Urine Total 900 ml 550 ml 800 ml 550 ml Stool Total 500 ml 500 ml 900 ml 100 ml Result Diagram: 06/11/17 0510 06/12/17 0530 Objective Remarks GENERAL: Morbidly obese WF, mild sob SKIN: Warm and dry. HEAD: Normocephalic. EYES: No scleral icterus. No injection or drainage. NECK: Supple, trachea midline. No JVD or lymphadenopathy. CARDIOVASCULAR: Regular rate and rhythm without murmurs, gallops, or rubs. RESPIRATORY: Breath sounds equal bilaterally. No accessory muscle use. GASTROINTESTINAL: Abdomen soft, non-tender, nondistended. MUSCULOSKELETAL: No cyanosis, or edema. has swelling and redness of legs BACK: Nontender without obvious deformity. No CVA tenderness. A/P Assessment and Plan Hypercapnoic Resp Insuff CHE or Obesity Hypoventilation synd Cellulitis legs Bactremia back pain Sepsis Encephalopathy PLAN: Vent Support Aerosol nebs Wean 02 to keep sat 88-92% Abx per ID Cont Dilantin Plans for Trach in Dima Salvador MD Jun 12, 2017 19:11
--- NOTE | 2017-06-12 20:50 | HHI.PR ---
Review/Management Diagnosis - Encephalopathy. Possible etiological causes are seizures/ infectious/ metabolic - Multiple ischemic strokes, b/l hemispheres - Critical Illness Polyneuropathy - Respiratory failure. - Bacteremia, group B strep. - JAMES. - Diabetes mellitus. Plan - Neuro checks q. one hourly. - Discontinue Phenytoin - Keppra 750mg Q12h - Aspirin 81mg - Seizure precautions. - Hold narcotic medications. - Continue supportive medical therapy. - GI prophylaxis. - DVT prophylaxis, subcutaneous heparin - Discussed case with , and RN Diagnosis/Plan: Subjective Subjective Comments Patient os more awake, alert, responds to verbal stimuli, tracks objects No reported seizure activity at bed side Active Medications Current Medications Medications (Trade) Dose Ordered Sig/Erasmo Route Start Time Stop Time Status Last Admin (Heparin Inj) 5,000 units Q8H SQ 05/20/17 22:00 Future Hold 06/12/17 14:19 Miscellaneous Information 1 Q361D XX 05/20/17 22:30 (Chlorhexidine 2% Cloth) 3 pack Taper DAILY@04 TOP 05/21/17 04:00 05/17/18 03:59 06/12/17 04:00 (Chlorhexidine 2% Cloth) 3 pack UNSCH PRN TOP 05/20/17 22:30 (Tylenol) 650 mg Q6H PRN PO 05/21/17 01:30 (Duoneb Neb) 1 ampule Q2HR NEB PRN NEB 05/21/17 05:45 06/07/17 20:00 (Glucagon Inj) 1 mg UNSCH PRN OTHER 05/22/17 07:30 (NS Flush) 2 ml UNSCH PRN IV FLUSH 05/24/17 12:15 06/04/17 20:38 (NS Flush) 2 ml BID IV FLUSH 05/24/17 21:00 06/12/17 08:43 (Narcan Inj) 0.4 mg UNSCH PRN IV PUSH 05/24/17 12:15 (May-Colace) 1 tab BID PO 05/24/17 21:00 06/12/17 08:42 (Milk Of Magnesia Liq) 30 ml Q12H PRN PO 05/24/17 12:15 05/24/17 13:45 (Senokot) 17.2 mg Q12H PRN PO 05/24/17 12:15 (Dulcolax Supp) 10 mg DAILY PRN RECTAL 05/24/17 12:15 (Lactulose Liq) 30 ml DAILY PRN PO 05/24/17 12:15 Ceftriaxone Sodium 2000 mg/ Sodium Chloride 100 ml @ 200 mls/hr Q12H IV 05/25/17 17:00 06/12/17 17:00 (Dilantin Inj) 100 mg Q8HR IV 05/26/17 22:00 06/12/17 14:19 (Mycostatin Powder) 1 applic Q12HR TOPICAL 05/30/17 10:00 06/12/17 08:45 (Tylenol Supp) 650 mg Q6H PRN RECTAL 05/30/17 13:15 05/30/17 14:06 (Ofirmev 1000 Mg/ 100 ml Inj) 1,000 mg Q6H PRN IV 05/31/17 16:30 06/11/17 20:08 Insulin Human Regular 100 units/ Sodium Chloride 100 ml @ 3 mls/hr TITRATE PRN IV 06/01/17 11:45 06/12/17 11:12 (D50w (Vial) Inj) 50 ml UNSCH PRN IV PUSH 06/01/17 11:45 Levetriacetam 750 mg/Sodium Chloride 107.5 ml @ 430 mls/hr Q12HR IV 06/01/17 21:00 06/12/17 08:43 (Mag-Ox) 800 mg UNSCH PRN PO 06/03/17 11:00 Magnesium Sulfate 4 gm/Sodium Chloride 100 ml @ 50 mls/hr UNSCH PRN IV 06/03/17 11:00 Magnesium Sulfate 2 gm/Sodium Chloride 100 ml @ 50 mls/hr UNSCH PRN IV 06/03/17 11:00 06/08/17 17:47 Potassium Chloride 100 ml @ 50 mls/hr Q2H PRN IV 06/03/17 11:00 06/08/17 13:15 Potassium Chloride 100 ml @ 50 mls/hr Q2H PRN IV 06/03/17 11:00 Potassium Chloride 100 ml @ 50 mls/hr Q2H PRN IV 06/03/17 11:00 06/04/17 06:36 Potassium Chloride 100 ml @ 25 mls/hr UNSCH PRN IV 06/03/17 11:00 06/10/17 06:46 (K-Phos) 2,000 mg Q4H PRN PO 06/03/17 11:00 (K-Phos) 2,000 mg UNSCH PRN PO/TUBE 06/03/17 11:00 Potassium Phosphate 30 mmol/ Sodium Chloride 260 ml @ 42 mls/hr UNSCH PRN IV 06/03/17 11:00 06/07/17 11:08 Sodium Phosphate 30 mmol/Sodium Chloride 250 ml @ 42 mls/hr UNSCH PRN IV 06/03/17 11:00 06/05/17 11:06 (Aspirin) 325 mg DAILY PO 06/03/17 11:00 06/12/17 08:43 (Symmetrel Liq) 200 mg BID@07,12 PO 06/03/17 12:00 06/12/17 11:07 (Pepcid Inj) 20 mg Q12HR IV PUSH 06/05/17 21:00 06/12/17 08:43 (Provigil) 200 mg DAILY PO 06/06/17 09:00 06/12/17 08:42 (Trandate Inj) 10 mg Q4H PRN IV PUSH 06/05/17 23:00 06/06/17 16:51 (Apresoline Inj) 20 mg Q4H PRN IV PUSH 06/05/17 23:00 (Free Water) VOLUME: 300 ML Q6HR G-TUBE 06/06/17 11:00 06/12/17 17:38 (Coreg) 6.25 mg Q12HR PO 06/06/17 11:30 06/12/17 08:44 (Levemir Inj) 80 units Q12HR SQ 06/07/17 21:00 06/12/17 08:44 (Synthroid Inj) 25 mcg DAILY@06 IV PUSH 06/08/17 10:00 06/12/17 04:33 (Santyl Oint) 1 applic DAILY TOPICAL 06/10/17 09:00 06/12/17 08:45 (Lasix Inj) 20 mg Q12H IV PUSH 06/12/17 23:00 Allergies Allergies Coded Allergies No Known Allergies ([id number]) Review of Systems All other ROS: ROS reviewed as documented in chart Exam I&O / VS 06/12/17 06/12/17 06/13/17 15:00 23:00 07:00 Intake Total 358.5 ml 1475 ml Output Total 650 ml Balance 358.5 ml 825 ml Intake Oral 0 ml IV Total 358.5 ml 233 ml Tube Feeding 642 ml Other 600 ml Output Urine Total 550 ml Stool Total 100 ml Vital Signs Date Time Temp Pulse Resp B/P (MAP) Pulse Ox O2 Delivery O2 Flow Rate FiO2 06/12/17 18:00 89 18 110/54 (72) 95 06/12/17 18:00 89 06/12/17 17:01 87 22 104/51 (68) 97 06/12/17 16:43 93 45 06/12/17 16:01 98.6 86 21 115/58 (77) 94 06/12/17 16:00 50 06/12/17 16:00 86 06/12/17 15:01 84 22 116/56 (76) 94 06/12/17 14:00 83 06/12/17 14:00 83 22 111/55 (73) 95 06/12/17 13:06 94 45 06/12/17 13:00 85 19 108/51 (70) 94 06/12/17 12:01 98.3 83 22 105/53 (70) 95 06/12/17 12:00 50 06/12/17 12:00 83 06/12/17 11:00 83 21 107/53 (71) 94 06/12/17 10:00 84 06/12/17 10:00 84 20 106/70 (82) 96 06/12/17 09:55 93 45 06/12/17 09:00 86 22 121/58 (79) 96 06/12/17 08:00 50 06/12/17 08:00 98.7 88 25 120/57 (78) 95 06/12/17 08:00 88 06/12/17 07:38 97 45 06/12/17 07:00 86 23 113/54 (73) 95 06/12/17 06:00 85 06/12/17 06:00 85 21 110/51 (70) 98 06/12/17 05:01 85 23 103/51 (68) 100 06/12/17 04:00 99.4 85 21 125/58 (80) 100 06/12/17 04:00 50 06/12/17 04:00 86 06/12/17 03:50 99 45 06/12/17 02:00 85 06/12/17 01:05 100 45 06/12/17 00:00 50 06/12/17 00:00 99.4 83 20 109/55 (73) 95 06/12/17 00:00 84 06/11/17 22:00 82 06/11/17 21:55 97 45 Exam Comments GENERAL: Morbidly obese, lethargic. HEENT: Atraumatic, normocephalic. NECK: Supple. No signs of meningeal irritation. CARDIOVASCULAR: Regular rate and rhythm. RESPIRATORY: Clear to auscultation. No wheezes. GASTROINTESTINAL: Soft, nontender. MUSCULOSKELETAL: No cyanosis, edema or clubbing. NEUROLOGIC EXAMINATION: Intubated, off sedation, Pupils 3 mm bilaterally equally reacting to light. No facial asymmetry. Reflexes 1+ bilateral and symmetrical. B/l Babinski reflex. Awake, opens eyes to commands, tracks objects , more attentive to when called by her name , moves extremities weakly, withdraws b/l LE to stimulation, sluggish reflexes throughout. Objective Radiology Results Last 72 hours Impressions Chest X-Ray 06/12/17 0600 Signed Impressions: Service Date/Time: Monday, June 12, 2017 04:23 - CONCLUSION: Tubes and catheters are in good position. Mild pulmonary vascular congestion. Adiel Elder MD Chest X-Ray 06/10/17 0000 Signed Impressions: Service Date/Time: Saturday, June 10, 2017 07:44 - CONCLUSION: Improving lung aeration otherwise stable chest. Persistent bibasilar airspace disease and bilateral effusions. Supportive devices in stable position. Wilian Richey MD Micro and Labs Laboratory Tests Test 06/12/17 05:30 Blood Urea Nitrogen 18 Creatinine 1.14 Random Glucose 268 Total Protein 5.9 Albumin 1.4 Calcium Level 7.3 Magnesium Level 1.8 Alkaline Phosphatase 418 Aspartate Amino Transf (AST/SGOT) 76 Alanine Aminotransferase (ALT/SGPT) 32 Total Bilirubin 0.8 Sodium Level 135 Potassium Level 3.6 Chloride Level 95 Carbon Dioxide Level 30.9 Anion Gap 9 Estimat Glomerular Filtration Rate 48 Protein Corrected Calcium 7.9 Date/Time Source Procedure Growth Status 06/11/17 16:04 Blood Peripheral Aerobic Blood Culture - Preliminary NO GROWTH IN 1 DAY Resulted 06/11/17 16:04 Blood Peripheral Anaerobic Blood Culture - Preliminary NO GROWTH IN 1 DAY Resulted 06/08/17 15:08 Fluid Pleural Fluid Fungal Smear - Final NO FUNGAL ELEMENTS SEEN. Resulted 06/08/17 15:08 Fluid Pleural Fluid Fungal Culture Pending Resulted 06/09/17 10:25 Bronchial Washings Right Lower Lobe Fungal Smear - Final NO FUNGAL ELEMENTS SEEN. Resulted 06/09/17 10:25 Bronchial Washings Right Lower Lobe Fungal Culture Pending Resulted 06/10/17 10:55 Urine Clean Catch Urine Culture - Final Veronica Species Complete Juan Pablo Salas MD Jun 12, 2017 20:50
[2017-06-12] MEDS: FUROSEMIDE 20 MG/2 ML VIAL IV PUSH SCH (22:15)
[2017-06-13] VITALS (29 sets, daily range): BP systolic 99–135; BP diastolic 49–63; PULSE 79–95; RESP 19–31; TEMP 97.8–100.9; O2SAT 86–100
[2017-06-13] MEDS: CHLORHEXIDINE GLUCONATE 2 % 1 PACK (2 CLOTHS) TOP SCH (04:00)
[2017-06-13 04:36] LABS: MEAN CELL VOLUME 94.4 FL (80.0-100.0); MEAN CORPUSCULAR HGB CONC 33.9 % (32.0-36.0); PLATELET COUNT 147 TH/MM3 (150-450); RED BLOOD COUNT 2.97 MIL/MM3 (4.00-5.30); RED CELL DISTRIBUTION WIDTH 17.8 % (11.6-17.2); WHITE BLOOD COUNT 16.2 TH/MM3 (4.0-11.0)
[2017-06-13 04:49] LABS: HEMO FLAGS AUTO DIFF
[2017-06-13] MEDS: cefTRIAXone INJ 2,000 MG in SODIUM CHLORIDE 0.9% INJ 100 ML IV SCH ×2 (05:00→17:12)
[2017-06-13 05:02] LABS: ALKALINE PHOSPHATASE 500 U/L (45-117)
[2017-06-13 05:26] LABS: ANION GAP 7 MEQ/L (5-15); BLOOD UREA NITROGEN 17 MG/DL (7-18); CHLORIDE 96 MEQ/L (98-107); GLOMERULAR FILTRATION RATE 60 ML/MIN (>89); POTASSIUM 3.3 MEQ/L (3.5-5.1); SODIUM (NA) 136 MEQ/L (136-145)
[2017-06-13] MEDS: FREE WATER G-TUBE SCH ×5 (06:00→23:47)
[2017-06-13 06:03] LABS: AST (GOT) 113 U/L (15-37)
--- NOTE | 2017-06-13 06:13 | RADRPT ---
EXAM DATE/TIME: 06/13/2017 05:12 [facility] COMPARISON: CHEST SINGLE AP, June 10, 2017, 7:44. CHEST SINGLE AP, June 09, 2017, 17:42. CHEST SINGLE A P, June 12, 2017, 4:23. INDICATIONS : Respiratory distress. MEDICAL HISTORY : Hypertension. Dyspnea. Diabetes. Chronic lower back pain. SURGICAL HISTORY : None. ENCOUNTER: Subsequent ACUITY: 2 weeks PAIN SCORE: Non-responsive. LOCATION: Bilateral chest FINDINGS: A single view of the chest demonstrates the endotracheal tube, nasogastric tube and right IJ central line in excellent position. Aorta remains quite tortuous. Heart remains enlarged. Osseous structures are intact. CONCLUSION: ET tube, nasogastric and right IJ central line in excellent position. Heart remains enlarged Adiel Elder MD on June 13, 2017 at 6:11 Board Certified Radiologist. This report was verified electronically.
[2017-06-13] MEDS: LEVOTHYROXINE SODIUM 100 MCG VIAL IV PUSH SCH (06:52)
[2017-06-13 07:50] LABS: BANDS 10 % (0-6); CORRECTED NUCLEATED RBC 2 /100 WBC (0-0); EOSINOPHILS 4 % (0-4); METAMYELOCYTES 8 % (0-1); MYELOCYTES 4 % (0-0); NEUTROPHIL # MANUAL DIFF 10.7 TH/MM3 (1.8-7.7); POLYS (SEG NEUTROPHILS) 44 % (16-70); WBC DIFF SAMPLE 100
[2017-06-13 07:51] LABS: SCAN/DIFF FINAL DIFF MANUAL
[2017-06-13 07:52] LABS: PLATELET ESTIMATE SMEAR NORMAL (NORMAL); PLATELET MORPHOLOGY ENLARGED (NORMAL)
[2017-06-13 08:02] LABS: ALT (GPT) 28 U/L (10-53)
[2017-06-13] MEDS: AMANTADINE HCL SOLN 100 MG/10 ML UDC PO SCH ×2 (08:29→11:16)
[2017-06-13] MEDS: ASPIRIN 325 MG TAB PO SCH (08:30)
[2017-06-13] MEDS: CARVEDILOL 6.25 MG TAB PO SCH ×2 (08:30→21:33)
[2017-06-13] MEDS: MODAFINIL 200 MG TAB PO SCH (08:30)
[2017-06-13] MEDS: DOCUSATE SODIUM 50 MG/SENNA 8.6 MG TAB PO SCH ×2 (08:30→21:00)
[2017-06-13] MEDS: SODIUM CHLORIDE 0.9% FLUSH 10 ML FLUSH IV FLUSH SCH ×2 (08:31→21:33)
[2017-06-13] MEDS: FAMOTIDINE 20 MG/2 ML VIAL IV PUSH SCH ×2 (08:31→21:33)
[2017-06-13] MEDS: levETIRAcetam INJ 750 MG in SODIUM CHLORIDE 0.9% INJ 100 ML IV SCH ×2 (08:31→21:33)
[2017-06-13] MEDS: INSULIN DETEMIR 100 UNITS/ML VIAL SQ SCH ×2 (08:32→21:32)
[2017-06-13] MEDS: NYSTATIN 100,000 U/GM PWD 15 GM BTL TOPICAL SCH ×2 (08:32→21:34)
[2017-06-13] MEDS: COLLAGENASE OINT 30 GM TUBE TOPICAL SCH (08:32)
[2017-06-13] MEDS ORDERED: FLUCONAZOLE 200 MG TAB PO ONE (08:45)
[2017-06-13] MEDS: ACETAMINOPHEN 325 MG TAB PO PRN ×2 (09:28→21:32)
[2017-06-13] MEDS: INSULIN REGULAR (IV INFUSION) 100 UNITS in SODIUM CHLORIDE 0.9% INJ 99 ML IV PRN (09:36)
--- NOTE | 2017-06-13 10:20 | HHI.CCPN ---
Subjective Remarks/Hospital Course 66-year-old female presents confused and lethargic. Patient reportedly was recently seen today at an urgent care and received an injection for low back pain. Patient here denies headaches, chest pain or shortness of breath, abdominal pain or extremity pain. Patient does complain of low back pain. at bedside states that they're visiting from out of state for the past 3 months and will be returning back to their home state in a week. reports patient has chronic low back pain but this exacerbated over the last 24 hours starting yesterday morning. Patient was seen earlier today by her chiropractor for an adjustment and then was referred to an urgent care. Patient reportedly had a fever at the chiropractor's office and felt cold and clammy. At the urgent care patient was evaluated and reportedly had an injection of a nonsteroidal medication as she is diabetic and he did not want to give her a steroid injection. Patient went home about 1:00 PM she was drowsy so sat down in a chair and fell asleep according to the . He tried to awaken her at 4:30 and noticed that she was confusional and lethargic. He attempted to continue to awaken her over the next 2-3 hours and because she was not improving decided finally to call EMS to transport her to the emergency room. Patient and spouse denied any recent injury or fall. Patient was ambulatory this morning but this evening has difficulty elevating her lower extremities as well as she was generally extremely weak. 05/21 Patient is on BIPAP 12/5 with 45% FIO2. Afebrile. Awake. Renal function is improving with Cr: 1.87 from 2.74. 05/22 No events overnight. Patient is more awake and alert off BIPAP. Renal function is improving with Cr: 1.07 from 1.87. delayed note entry. consulted and seen at ~1500. RECONSULT NOTE: 05/30: reconsulted for worsening hypoxemia. now on 6L facemask. please refer to prior consult note for detailed medical history. In brief, 66yF lethargic female, back pain after injection, ? discitis/osteo, on abx for group B strep, worsening fever, tachycardia, tachypnea, o2 requirement to 6L facemask and RR up to 40s. patient unable to provide additional history but does appear in distress. 05/31: Patient remains encephalopathic, on high flow O2 via nasal cannula, this morning was on 60 L/m 55% FiO2. Subsequently has dropped to 30 L/m to extubate percent FiO2. Given 80 mg IV Lasix with no response. Subsequently given Bumex 2 mg IV push and started on Bumex drip at 1 mg/h to attempt to diurese in an effort to improve respiratory status however has not had any increase in urine output with Bumex drip. Creatinine came back elevated at 2.13. Suspect acute kidney injury/ATN which may be a reason for poor response to diuretics. She also spiked a temperature of 103 for which IV Ofirmev was ordered. 06/01: intubated overnight and hypotensive requiring vasopressors. now remains in shock on 2 vasopressors. bedside critical care echo demonstrates hyperdynamic LV with completely collapsed IVC. gave 2L bolus and started on mivf @ 100 cc/hr. still spiking fevers. discussed with Dr. Portillo and plan to repeat LP as well as cultures and imaging to look for source. clinically worse today. 06/02: off vasopressors. remains intubated and sedated, very encephalopathic. MRI with new punctate strokes. STEVEN being done today. also ? abscess in the pelvis of unknown origin, maybe contained diverticulitis? CT guided drainage. although some improvements in hemodynamics, no improvements in vent or encephalopathy. off pathway. 06/03: IR re-ct scan without any evidence of abdominal abscess. blood glucose still not controlled despite high dose algorithm. wbc downtrending. 06/04: wbc continues to downtrend. Cr improving as well. very hypokalemic despite aggressive replacement. blood glucose now < 200, but using high dose insulin drip and levemir. encephalopathy persists. 06/05: clinically improving. weakly following commands this morning. renal function improved. EEG negative for seizures. still too sleepy for safe extubation, but improved from yesterday. 06/06: continues to improve. still weakly following commands. failing SBT- on 20 of PSV with small tidal volumes and very tachypneic. slightly more awake, but still not awake enough for safe extubation. 06/07: Currently tolerating CPAP 15 PSV. Opens eyes tracks. Weekly follows commands on the lower extremity but delayed response. Remains off all sedation approximately 36 hours now. is at the bedside updated 06/08: Fever 100.8, WBC 15.4. But slightly more awake and focussed today. Wiggles toes to command with a delay. CXR shows moderate effusion- plan for CT guided thoracentesis today. D/W IR Dr. Quintanilla and ID Dr. Portillo 06/09: Appears to be becoming more septic. Tmax 101.8. WBC count 14.8 with 21 % bands. Zyvox and cefepime started by Dr. Portillo. Chest CT yesterday showed bilateral dense consolidation at the bases left more than right. Moderate to thick secretion on bronchoscopy and bilateral lower lobes today. Bilateral airways inflamed and friable. New fever, sepsis most likely secondary to healthcare associated pneumonia. s/p right thoracentesis with 225 ml of fluid removed, exudative by light criteria. Hemorrhagic fluid. EEG 06/08 showed moderate encephalopathy, no seizures 06/10: Continues to spike fever up to 101.6. White count stable at 14.7. Had bronchoscopy with thick secretions removed from bilateral lower lobes yesterday. BAL studies are pending. Tolerate CPAP with high pressure support. Chest x-ray slightly improved 06/11: Continues to spike fever overnight fever up to 103. Cultures remain negative except for Marco Antonio UTI. Appears more lethargic. Not able to extubate due to mental status. Will request general surgery consult for tracheostomy, and GI for PEG placement 06/12: Still spiking fever 101.3 overnight, all recent culture and BAL negative. Slightly more awake, but very delayed in following commands. General surgery Dr. Hernandez will trach in OR tomorrow. Creat slightly improved. 06/13: Remains orally intubated on mechanical ventilation. Has spontaneous eye opening and tracks. Off all sedation for 4 days. Awaiting tracheostomy Objective Vital Signs Date Time Temp Pulse Resp B/P (MAP) Pulse Ox O2 Delivery O2 Flow Rate FiO2 06/13/17 07:44 93 45 06/13/17 06:00 91 06/13/17 04:00 98.6 26 112/56 (74) 06/11/17 08:39 Ventilator 06/09/17 07:00 5.00 Intake and Output 06/13/17 06/13/17 06/14/17 08:00 16:00 00:00 Intake Total 1140 ml Output Total 825 ml Balance 315 ml Result Diagram: 06/13/17 0400 06/13/17 0400 Other Results Microbiology Date/Time Source Procedure Growth Status 06/10/17 10:55 Urine Clean Catch Urine Culture - Final Marco Antonio Species Complete Imaging Last Impressions Liver Ultrasound 05/21/17 0000 Signed Impressions: Service Date/Time: Sunday, May 21, 2017 10:32 - CONCLUSION: 1. Hepatic steatosis. 2. Gallstones 3. Limited evaluation of the right kidney. Santana Lamar MD Chest X-Ray 05/21/17 0000 Signed Impressions: Service Date/Time: Sunday, May 21, 2017 06:17 - CONCLUSION: 1. Limited suboptimal study with motion artifact. 2. No definite acute cardiac pulmonary disease. Austin Orellana MD Head CT 05/20/17 192 Signed Impressions: Service Date/Time: Saturday, May 20, 2017 19:55 - CONCLUSION: 1. No acute findings. Retention cyst right maxillary sinus. Jakob Scruggs MD Objective Remarks GENERAL: Patient is 66 yo lying in bed, intubated, off all sedation SKIN: Warm and dry. HEAD: Normocephalic. EYES: No scleral icterus. No injection or drainage. NECK: Trachea midline. large neck prevents accurate assessment of JVD. LIJ central line in place CARDIOVASCULAR: Tachycardic rate, regular rhythm. RESPIRATORY: intubated, fio2 45%, coarse breath sounds bilaterally, slightly tachypneic. Tidal volumes 350-400 ml PSV 15/8/45% GASTROINTESTINAL: Abdomen morbidly obese, soft, non-tender, nondistended. MSK: No cyanosis, or edema. NEURO: Opens eyes to command. Weakly follows commands in lower extremity, delayed response. Localizes with UE Procedures None Date of Insertion: May 25, 2017 A/P Assessment and Plan Assessment: 66yF with encephalopathy thought to be secondary to [employer]ATOR infection vs. toxic/metabolic, Multifocal CVA, hypoxic respiratory failure, sepsis. some improvements in mental status. still too somnolent for safe extubation. Respiratory failure persists. s/p right thoracentesis. will continue diuresis. continue daily SBTs while we optimize pulmonary function. Trach in OR 06/13/17 Plan: Neuro: Metabolic Encephalopathy- slight improvement. Acute CVA, multifocal areas of ischemia Possible [employer] Infection Discitis - MRI brain06/01 diffuse areas of small infarcts, possibly embolic - Off all sedating medications. Remains encephalopathic - Received Versed fentanyl and rocuronium for bronchoscopy 06/09/17, off all continuos sedation - Continue amantadine and, modafinil for wakefulness. - frequent neuro checks, continue aspirin - Prev TSH borderline high, T4 low. Continue Synthroid 25 mcg IV daily started 06/08/17. - Ammonia normal. B12 normal - EEG 06/08 moderate encephalopathy, carotid ultrasound no significant stenosis Resp: Acute hypoxic and hypercarbic respiratory failure - persistent. Right pleural effusion Bibasilar infiltrates/HCAP - Bronchoscopy showed inflamed airways, thick secretion bilateral lower lobes. - ABX per Dr. Portillo ID, see ID section - vent bundle, hob at 30 degrees, nebs. Up to chair today - wean fio2 for spo2 > 90% Trach in OR tomorrow. Decrease to 20 q12 - daily SBTs. 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 - Right thoracentesis with fluid studies-exudative effusion, cultures neg to date Renal: Acute kidney injury- resolved - continue Reid - forced diuresis with Lasix goal net -2L/24h. - daily bmp FEN/GI: Shock liver - persistent Morbid obesity Hypokalemia Volume overload Acute protein calorie malnutrition- moderate Cholelithiasis - Glucerna tube feeds - ICU electrolyte protocol - daily bmp - trend LFTs - GI consulted for PEG, planned for 06/14 Heme/ID: New Fever ? drug related Possible HCAP marco antonio UTI Septic Shock - resolved Discitis Strep bacteremia (recent blood cultures negative) - abx per ID Dr. Portillo. Continue Ceftriaxone IV q12, Continue Flagyl, Diflucan , Cefepime and Zyvox. Dr. Portillo planning consolidation today - Bronch with BAL 06/09/17. Follow up on studies - cultures NGTD except initial 4/4 bottles with group B strp. Repeat blood cultures today - There is clinical concern for endocarditis (4/4 bottle strep, brain emboli delfino though STEVEN negative) - if discitis is truly the source and no improvements, could consider disc biopsy in the future. - F/U Send pleural fluid studies and BAL Endocrine: Severe hyperglycemia Relative Adrenal Insufficiency Possible hyperthyroidism - steroid tapered, now DCd - severe hyperglycemia despite high dose insulin drip - continue insulin drip Algorithm #4. - Levemir to 80 units SQ q12h - On levothyroxine 25 g IV daily Prophylaxis: - pepcid - SCDs - SQH Lines: - Reid: keep while active diuresis. Level 3. General surgery and GI consult for trach and PEG. Planned over next two days Mejia Portillo MD Jun 13, 2017 10:20
[2017-06-13] MEDS: FUROSEMIDE 20 MG/2 ML VIAL IV PUSH SCH ×2 (11:16→23:39)
--- NOTE | 2017-06-13 11:32 | HHI.PR ---
Subjective Remarks 66 YOObese WF with Hypercapnoea, Cellulitis, Bactremia Intubated Off sedation Follows simple commands No Fever at BS Objective Vital Signs Vital Signs Date Time Temp Pulse Resp B/P (MAP) Pulse Ox O2 Delivery O2 Flow Rate FiO2 06/13/17 11:01 95 45 06/13/17 07:44 93 45 06/13/17 06:00 91 06/13/17 04:25 93 45 06/13/17 04:00 98.6 90 26 112/56 (74) 93 06/13/17 04:00 50 06/13/17 04:00 90 06/13/17 02:00 87 06/13/17 01:10 94 45 06/13/17 00:00 89 06/13/17 00:00 50 06/13/17 00:00 98.7 89 21 117/56 (76) 94 06/12/17 22:15 97 45 06/12/17 22:00 92 06/12/17 20:00 89 06/12/17 20:00 98.4 89 28 108/51 (70) 96 06/12/17 20:00 50 06/12/17 19:55 96 45 06/12/17 18:00 89 18 110/54 (72) 95 06/12/17 18:00 89 06/12/17 17:01 87 22 104/51 (68) 97 06/12/17 16:43 93 45 06/12/17 16:01 98.6 86 21 115/58 (77) 94 06/12/17 16:00 50 06/12/17 16:00 86 06/12/17 15:01 84 22 116/56 (76) 94 06/12/17 14:00 83 06/12/17 14:00 83 22 111/55 (73) 95 06/12/17 13:06 94 45 06/12/17 13:00 85 19 108/51 (70) 94 06/12/17 12:01 98.3 83 22 105/53 (70) 95 06/12/17 12:00 50 06/12/17 12:00 83 I/O 06/12/17 06/12/17 06/12/17 06/13/17 06/13/17 06/13/17 07:00 15:00 23:00 07:00 15:00 23:00 Intake Total 1407 ml 358.5 ml 1582.5 ml 1020 ml 120 ml Output Total 1700 ml 650 ml 825 ml Balance -293 ml 358.5 ml 932.5 ml 195 ml 120 ml Intake Oral 0 ml IV Total 100 ml 358.5 ml 340.5 ml 100 ml 120 ml Tube Feeding 707 ml 642 ml 320 ml Other 600 ml 600 ml 600 ml Output Urine Total 800 ml 550 ml 725 ml Stool Total 900 ml 100 ml 100 ml Result Diagram: 06/13/1739906/13/17399 Objective Remarks GENERAL: Morbidly obese WF, mild sob SKIN: Warm and dry. HEAD: Normocephalic. EYES: No scleral icterus. No injection or drainage. NECK: Supple, trachea midline. No JVD or lymphadenopathy. CARDIOVASCULAR: Regular rate and rhythm without murmurs, gallops, or rubs. RESPIRATORY: Breath sounds equal bilaterally. No accessory muscle use. GASTROINTESTINAL: Abdomen soft, non-tender, nondistended. MUSCULOSKELETAL: No cyanosis, or edema. has swelling and redness of legs BACK: Nontender without obvious deformity. No CVA tenderness. A/P Assessment and Plan Hypercapnoic Resp Insuff CHE or Obesity Hypoventilation synd Cellulitis legs Bactremia back pain Sepsis Encephalopathy PLAN: Vent Support Aerosol nebs Wean 02 to keep sat 88-92% Abx per ID Cont Dilantin Plans for Trach today DW at Dima Bang MD Jun 13, 2017 11:32
[2017-06-13] MEDS ORDERED: PHENYLEPH/NS 1000 MCG/10 ML SYR IV ONE (12:00)
[2017-06-13] MEDS ORDERED: ROCURONIUM INJ 50 MG/5 ML SYRINGE IV PUSH ONE (12:00)
[2017-06-13] MEDS ORDERED: LIDOCAINE 1%/EPINEPHrine 1:100,000 SOLN 50 ML VIAL ONE (12:00)
[2017-06-13] MEDS ORDERED: MIDAZOLAM HCL 2 MG/2 ML VIAL IV ONE (12:00)
--- NOTE | 2017-06-13 13:13 | HHI.IDPN ---
Subjective Subjective Remarks is a 66-year-old female presents confused and lethargic. Patient reportedly was recently seen today at an urgent care and received an injection for low back pain. Patient here denies headaches, chest pain or shortness of breath, abdominal pain or extremity pain. Patient does complain of low back pain. at bedside states that they're visiting from out of state for the past 3 months and will be returning back to their home state in a week. reports patient has chronic low back pain but this exacerbated over the last 24 hours starting yesterday morning. Patient was seen earlier today by her chiropractor for an adjustment and then was referred to an urgent care. Patient reportedly had a fever at the chiropractor's office and felt cold and clammy. At the urgent care patient was evaluated and reportedly had an injection of a nonsteroidal medication as she is diabetic and he did not want to give her a steroid injection. Patient went home about 1:00 PM she was drowsy so sat down in a chair and fell asleep according to the . He tried to awaken her at 4:30 and noticed that she was confusional and lethargic. He attempted to continue to awaken her over the next 2-3 hours and because she was not improving decided finally to call EMS to transport her to the emergency room. Patient and spouse denied any recent injury or fall. Patient was ambulatory this morning but this evening has difficulty elevating her lower extremities as well as she was generally extremely weak. ID following for Strep bacteremia, probable endocarditis, Septic emboli cerebral , discitis based on 1st imaging. bilateral LE cellulitis. Overnight events reviewed. Opens eyes spontaneously. Tmax 101.3 F Not on pressors. No rash No diarrhea. Plan for trach and PEG. Antibiotics CFTX Cefepime IV Zyvox Lines Line sites with no e.o infection Past Medical History Diabetes Dyslipidemia Hypertension Chronic back pain sees a chiropracter. Chronic lower extremity swelling. Never had an ECHO before per pt and spouse. ? Sleep apnea. Allergies: Coded Allergies: No Known Allergies (Unverified , 05/20/17) Objective . Vital Signs Date Time Temp Pulse Resp B/P (MAP) Pulse Ox O2 Delivery O2 Flow Rate FiO2 06/13/17 12:45 97 100 06/13/17 12:00 87 06/13/17 12:00 50 06/13/17 12:00 100.5 87 20 99/54 (69) 93 06/13/17 11:01 95 45 06/13/17 11:00 85 24 101/50 (67) 93 06/13/17 10:01 87 26 102/51 (68) 94 06/13/17 10:00 86 06/13/17 09:01 93 26 110/54 (72) 91 06/13/17 08:00 95 06/13/17 08:00 100.9 95 24 126/58 (80) 91 06/13/17 08:00 50 06/13/17 07:44 93 45 06/13/17 07:01 91 31 108/49 (68) 90 06/13/17 06:00 91 28 122/56 (78) 94 06/13/17 06:00 91 06/13/17 05:01 90 31 107/60 (76) 92 06/13/17 05:00 89 30 86 06/13/17 04:25 93 45 06/13/17 04:00 98.6 90 26 112/56 (74) 93 06/13/17 04:00 50 06/13/17 04:00 90 06/13/17 02:00 87 06/13/17 01:10 94 45 06/13/17 00:00 89 06/13/17 00:00 50 06/13/17 00:00 98.7 89 21 117/56 (76) 94 06/12/17 22:15 97 45 06/12/17 22:00 92 06/12/17 20:00 89 06/12/17 20:00 98.4 89 28 108/51 (70) 96 06/12/17 20:00 50 06/12/17 19:55 96 45 06/12/17 18:00 89 18 110/54 (72) 95 06/12/17 18:00 89 06/12/17 17:01 87 22 104/51 (68) 97 06/12/17 16:43 93 45 06/12/17 16:01 98.6 86 21 115/58 (77) 94 06/12/17 16:00 50 06/12/17 16:00 86 06/12/17 15:01 84 22 116/56 (76) 94 06/12/17 14:00 83 06/12/17 14:00 83 22 111/55 (73) 95 06/13/17 06/13/17 06/14/17 15:00 23:00 07:00 Intake Total 120 ml Balance 120 ml IV Total 120 ml . Laboratory Tests Test 06/13/17 04:00 White Blood Count 16.2 TH/MM3 Red Blood Count 2.97 MIL/MM3 Hemoglobin 9.5 GM/DL Hematocrit 28.0 % Mean Corpuscular Volume 94.4 FL Mean Corpuscular Hemoglobin 32.0 PG Mean Corpuscular Hemoglobin Concent 33.9 % Red Cell Distribution Width 17.8 % Platelet Count 147 TH/MM3 Mean Platelet Volume 11.3 FL CBC Comment AUTO DIFF Differential Total Cells Counted 100 Neutrophils % (Manual) 44 % Band Neutrophils % 10 % Lymphocytes % 14 % Monocytes % 16 % Eosinophils % 4 % Neutrophils # (Manual) 10.7 TH/MM3 Metamyelocytes 8 % Myelocytes 4 % Nucleated Red Blood Cells 2 /100 WBC Differential Comment FINAL DIFF MANUAL Platelet Estimate NORMAL Platelet Morphology Comment ENLARGED Polychromasia 2.0 % Basophilic Stippling FAINT Laboratory Tests Test 06/12/17 05:30 06/13/17 04:00 Blood Urea Nitrogen 18 MG/DL 17 MG/DL Creatinine 1.14 MG/DL 0.94 MG/DL Random Glucose 268 MG/DL 207 MG/DL Total Protein 5.9 GM/DL 5.7 GM/DL Albumin 1.4 GM/DL 1.4 GM/DL Calcium Level 7.3 MG/DL 7.9 MG/DL Magnesium Level 1.8 MG/DL Alkaline Phosphatase 418 U/L 500 U/L Aspartate Amino Transf (AST/SGOT) 76 U/L 113 U/L Alanine Aminotransferase (ALT/SGPT) 32 U/L 28 U/L Total Bilirubin 0.8 MG/DL 1.0 MG/DL Sodium Level 135 MEQ/L 136 MEQ/L Potassium Level 3.6 MEQ/L 3.3 MEQ/L Chloride Level 95 MEQ/L 96 MEQ/L Carbon Dioxide Level 30.9 MEQ/L 33.0 MEQ/L Anion Gap 9 MEQ/L 7 MEQ/L Estimat Glomerular Filtration Rate 48 ML/MIN 60 ML/MIN Protein Corrected Calcium 7.9 MG/DL Microbiology Date/Time Source Procedure Growth Status 06/11/17 16:04 Blood Peripheral Aerobic Blood Culture - Preliminary NO GROWTH IN 2 DAYS Resulted 06/11/17 16:04 Blood Peripheral Anaerobic Blood Culture - Preliminary NO GROWTH IN 2 DAYS Resulted 06/11/17 15:49 Blood Peripheral Aerobic Blood Culture - Preliminary NO GROWTH IN 2 DAYS Resulted 06/11/17 15:49 Blood Peripheral Anaerobic Blood Culture - Preliminary NO GROWTH IN 2 DAYS Resulted Imaging Last Impressions Lumbar Spine MRI 06/03/17 Signed Impressions: Service Date/Time: Saturday, June 03, 2017 15:42 - CONCLUSION: The MRI findings after contrast administration are not convincing for presence of active infection within the L3/L4 disc, adjacent vertebral bodies or epidural space/adjacent soft tissues. Santana Eric MD Pelvis CT 06/02/17 Signed Impressions: Service Date/Time: Friday, June 02, 2017 17:29 - CONCLUSION: No evidence of intra-abdominal abscess collection. Nikita Damon MD Chest X-Ray 06/02/17 Signed Impressions: Service Date/Time: Friday, June 02, 2017 15:14 - CONCLUSION: 1. Cardiomegaly. 2. Perihilar infiltrates consistent with mild to moderate pulmonary vascular congestion versus pneumonia. 3. Small right pleural effusion. 4. Multiple tubes and lines are stable. Nikita Damon MD Abdomen X-Ray 06/02/17 Signed Impressions: Service Date/Time: Friday, June 02, 2017 15:20 - CONCLUSION: OG tube in the stomach. Mike Davis MD FACR Chest CT 06/01/17 Signed Impressions: Service Date/Time: May 18:49 - CONCLUSION: 1. Dense consolidation in both posterior lower lobes right greater than left with air bronchograms. This could represent pneumonia. 2. Small bilateral pleural effusions. 3. Mild cardiomegaly. Austin Orellana MD Brain MRI 06/01/17 Signed Impressions: Service Date/Time: May 19:15 - CONCLUSION: 1. Multiple new small scattered punctate areas of restricted diffusion consistent with small areas of infarction. This could be secondary to emboli. 2. No acute hemorrhage or mass effect. 3. Acute sinusitis in the ethmoidal air cells and sphenoid sinus with air fluid levels. Austin Orellana MD Abdomen/Pelvis CT 06/01/17 Signed Impressions: Service Date/Time: May 18:49 - CONCLUSION: 1. Suboptimal opacification of the bowel with the distal small bowel unopacified. There is a questionable abnormal gas collection in the anterior lower pelvis. An abscess is not excluded. A repeat study is recommended after additional oral contrast is given. 2. Consolidation in both posterior lung bases with small pleural effusions. Austin Orellana MD Renal Ultrasound 05/31/17 0000 Signed Impressions: Service Date/Time: Wednesday, May 31, 2017 20:47 - CONCLUSION: 1. Suboptimal exam with visualization. 2. No evidence of hydronephrosis. 3. Cyst extending off right kidney. Austin Orellana MD Lower Extremity Ultrasound 05/29/17 0000 Signed Impressions: Service Date/Time: Monday, May 29, 2017 13:10 - CONCLUSION: 1. No evidence of deep venous thrombosis. Monty Gross MD Tumor Localization 05/26/17 0000 Signed Impressions: Service Date/Time: Friday, May 26, 2017 13:36 - CONCLUSION: No abnormal uptake identified to suggest infection. Nikita Damon MD Liver Ultrasound 05/21/17 0000 Signed Impressions: Service Date/Time: Sunday, May 21, 2017 10:32 - CONCLUSION: 1. Hepatic steatosis. 2. Gallstones 3. Limited evaluation of the right kidney. Santana Lamar MD Head CT [id number] Signed Impressions: Service Date/Time: Saturday, May 20, 2017 19:55 - CONCLUSION: 1. No acute findings. Retention cyst right maxillary sinus. Jakob Scruggs MD Physical Exam GENERAL: Obese patient. sedated int'd on [facility] vent SKIN: No rashes. Ecchymosis noted. No Janeway lesion no splinter hemorrhages. HEAD: Atraumatic. Normocephalic. EYES: Pupils equal round and reactive. Extraocular motions intact. No scleral icterus. No injection or drainage. ENT: Nose without bleeding, purulent drainage or septal hematoma. Throat without erythema, tonsillar hypertrophy or exudate. Uvula midline. Airway patent. NECK: Large neck, intubated. Supple CARDIOVASCULAR: Regular rate and rhythm without murmurs. well perused periphery with good refill RESPIRATORY: Breath sounds equal bilaterally.Clear to auscultation anteriorly GASTROINTESTINAL: Abdomen soft, non-tender, nondistended. Obese. No hepatosplenomegaly Incontinent of dark liquid stool chiu in place. MUSCULOSKELETAL: Extremities without clubbing, cyanosis. Pedal edema diminished , skin over legs now wrinkled. NEUROLOGICAL: Psych unable to assess IV line sites with no e/o infection. Assessment & Plan Remarks Septic Shock with MODS HCAP/plus aspiration pneumonia. 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 Strep Grp B bacteremia sources: ? GI, skin as source. STEVEN neg, but done 2 weeks after abx were started ? embolic strokes secondary to probable endocarditis. Candiduria: cath related infection. Bilateral R> L LE cellulitis: improved. Acute renal failure UO improving. GFR > 40 Acute resp failure: pulm edema,aspiration PNA, sleep apnea. MRI of T spine negative Abnormal LFTs: sepsis related, ? rhabdo elevated CK. HTN DM2 uncontrolled. Obesity BMI 49.7 kg/m2 Diarrhea Cdiff negative. Recs: Continue Ceftriaxone IV q12 for possible meningitis/epidural abscess,covers endocarditis if emboli are possibly septic. Restart Fluconazole as the Urine grew marco antonio again and pt has low grade fevers. Chiu changed Plan for trach and PEG. Follow cultures. Follow clinically. d/w and Nan Myers MD Jun 13, 2017 13:13
--- NOTE | 2017-06-13 14:27 | PD.PROCEDR ---
GI Procedure REFERRING PHYSICIAN Dr. Campbell PROCEDURE PERFORMED EGD with PEG placement INDICATION FOR PROCEDURE Respiratory failure, dysphagia PROCEDURE: The procedure, risks and benefits were discussed with Ms. Crockett and informed consent was obtained. Anesthesia sedated her with Diprivan. She was placed in the left lateral decubitus position. EGD: The Pentax videoscope was introduced through the oropharynx and advanced to the second portion of the duodenum under direct visualization. Retroflexion was performed in the stomach. FINDINGS: Esophagus this appeared to be unremarkable and within normal limits Stomach this too appeared to be unremarkable and within normal limits The duodenum this too appeared to be unremarkable normal limits Following the evaluation of the stomach and the duodenum the stomach was insufflated with air and the area of PEG placement was identified through indentation and transillumination the area was prepped and draped in usual fashion 5 cc of lidocaine were injected locally a small incision was made then an Angiocath was passed into the stomach through which a guidewire was passed this was retrieved with the scope into that a PEG tube was attached and pulled into place and thereafter secured in usual fashion The patient tolerated procedure well and there are no immediate complications ESTIMATED BLOOD LOSS: None SPECIMENS REMOVED: None COMPLICATIONS: None IMPRESSION: Normal EGD Successful PEG placement PLAN: 1. May use PEG tube for medications today 2. May start feeding tomorrow 3. May obtain nutritional consult for tube feeding 4. Flush tube with 50 cc of water every 4-6 hours 5. Always flush tube after feedings 6. Apply abdominal binder as necessary 7. Clamp G-tube after use and flush. Johnnie Piper MD Jun 13, 2017 14:27
--- NOTE | 2017-06-13 14:58 | RADRPT ---
EXAM DATE/TIME: 06/13/2017 14:21 [place] COMPARISON: CHEST SINGLE AP, June 13, 2017, 5:12. INDICATIONS : Post trach placement. MEDICAL HISTORY : Hypertension. Dyspnea. Diabetes. Chronic lower back pain. SURGICAL HISTORY : None. ENCOUNTER: Subsequent ACUITY: 1 day PAIN SCORE: Non-responsive. LOCATION: Bilateral chest FINDINGS: Portable AP view of the chest demonstrate stable enlargement of the cardiac silhouette. Tracheostomy no overlies the tracheal air shadow. No pneumothorax is visualized. Right IJ line tip is in the SVC. There is a small right basilar pleural-parenchymal opacity with likely atelectasis at the left lung b ase. CONCLUSION: 1. Tracheostomy overlies the trachea no pneumothorax is visualized. 2. Stable enlargement of the cardiac silhouette. Mild bibasilar opacities are present. Santana Shirley MD on June 13, 2017 at 14:55 Board Certified Radiologist. This report was verified electronically.
--- NOTE | 2017-06-13 16:49 | MP ---
cc: MAC HUNTER M.D., JOSEPH D. M.D. DATE OF SURGERY: 06/13/2017 PREOPERATIVE DIAGNOSIS: Ventilator dependence. Encephalopathy. Morbid obesity. POSTOPERATIVE DIAGNOSIS: Ventilator dependence. Encephalopathy. Morbid obesity. OPERATION: #8 Shiley XLT tracheostomy placement. SURGEON Mac Hunter MD. ANESTHESIA General endotracheal, Dr. Garrison COMPLICATIONS None INDICATIONS FOR PROCEDURE Ms. Crockett is an unfortunate 66-year-old female who has been in the [facility] for quite some time with encephalopathy. She has been ventilator dependent and has not tolerated weaning in any way. Dr. Campbell consulted surgery for tracheostomy. The patient was originally seen by Dr. Hernandez but he was unavailable today to perform tracheostomy. I discussed it with the this morning and he was agreeable to having me do the procedure. Because of her morbid obesity and challenging anatomy, and very short neck, we recommend this be done in the operating room rather than at the bedside. The risks and benefits were discussed with her and he was agreeable. DETAILS: The patient was identified, brought to the operating room, placed supine on the operating room table. After adequate general endotracheal anesthesia was achieved the anterior chest and neck was prepped and draped in standard surgical fashion. 0.25% Marcaine was injected in the skin and subcutaneous tissue one fingerbreadth above the sternal notch. A transverse incision was made. Dissection was carried down through the subcutaneous tissue in the midline to the strap muscles. Strap muscles were identified and divided in the middle and dissection proceeded all the way down to the trachea. First, second, and third tracheal rings were identified. Tracheostomy hook was then placed in the first tracheal ring. Next an inverted T incision was made in the trachea using an 11 blade. The endotracheal tube was visualized and withdrawn from the operative field. The tracheostomy airconditioning drafting officer was used to spread the trachea and then a #8 cuffed Shiley XLT tracheostomy tube was inserted without any difficulty. Balloon was inflated, cannula was placed. The patient was then connected to the ventilator and found have positive end-tidal CO2 and excellent tidal volumes with no leak. The skin was then closed with 3-0 nylon. Tracheostomy tube was secured to the neck using 2-0 Prolene interrupted x4. Balloon was tested and found to be holding air with no problems. Ventilator numbers were all good with excellent tidal volumes on inhalation and exhalation. Sterile dressings were applied. The patient tolerated the procedure without any desaturation or hemodynamic instability. She will now undergo a percutaneous endoscopic gastrostomy tube by Dr. Piper and then return to the [facility]. The patient was left in the care of Dr. Piper and the anesthesia team. MD BRAIN [place]/LONG /1:32 PM /4:11 PM
[2017-06-14] VITALS (24 sets, daily range): BP systolic 112–145; BP diastolic 53–72; PULSE 70–90; RESP 15–28; TEMP 97.6–100.7; O2SAT 95–100
[2017-06-14] MEDS: CHLORHEXIDINE GLUCONATE 2 % 1 PACK (2 CLOTHS) TOP SCH (04:00)
[2017-06-14] MEDS: cefTRIAXone INJ 2,000 MG in SODIUM CHLORIDE 0.9% INJ 100 ML IV SCH ×2 (05:00→16:21)
[2017-06-14] MEDS: FREE WATER G-TUBE SCH ×3 (06:00→16:21)
[2017-06-14] MEDS: LEVOTHYROXINE SODIUM 100 MCG VIAL IV PUSH SCH (06:00)
[2017-06-14] MEDS: RESP: ALBUTEROL 2.5 MG/IPRATROPIUM 0.5 MG NEB (PRN) NEB (08:22)
[2017-06-14] MEDS: AMANTADINE HCL SOLN 100 MG/10 ML UDC PO SCH ×2 (08:52→11:55)
[2017-06-14] MEDS: SODIUM CHLORIDE 0.9% FLUSH 10 ML FLUSH IV FLUSH SCH ×2 (08:52→22:57)
[2017-06-14] MEDS: levETIRAcetam INJ 750 MG in SODIUM CHLORIDE 0.9% INJ 100 ML IV SCH ×2 (08:52→22:58)
[2017-06-14] MEDS: FAMOTIDINE 20 MG/2 ML VIAL IV PUSH SCH ×2 (08:52→22:57)
[2017-06-14] MEDS: ASPIRIN 325 MG TAB PO SCH (08:53)
[2017-06-14] MEDS: COLLAGENASE OINT 30 GM TUBE TOPICAL SCH (08:53)
[2017-06-14] MEDS: CARVEDILOL 6.25 MG TAB PO SCH ×2 (08:53→22:57)
[2017-06-14] MEDS: MODAFINIL 200 MG TAB PO SCH (08:53)
[2017-06-14] MEDS: DOCUSATE SODIUM 50 MG/SENNA 8.6 MG TAB PO SCH ×2 (08:53→22:57)
[2017-06-14] MEDS: NYSTATIN 100,000 U/GM PWD 15 GM BTL TOPICAL SCH ×2 (08:53→23:00)
[2017-06-14] MEDS: INSULIN DETEMIR 100 UNITS/ML VIAL SQ SCH ×2 (08:53→22:58)
--- NOTE | 2017-06-14 09:30 | HHI.GIFU ---
Subjective Remarks Resting in bed. S/P tracheostomy and peg tube placement yesterday. No distress. Denies abdominal pain. (Evelin Zheng) Objective Vitals I&O Vital Signs Date Time Temp Pulse Resp B/P (MAP) Pulse Ox O2 Delivery O2 Flow Rate FiO2 06/14/17 08:15 40 06/14/17 08:15 98 40 06/14/17 06:00 80 06/14/17 04:15 97 40 06/14/17 04:01 82 20 128/71 (90) 96 06/14/17 04:00 50 06/14/17 04:00 80 06/14/17 03:01 80 18 126/58 (80) 100 06/14/17 02:01 97.6 79 19 118/56 (76) 100 06/14/17 02:00 81 06/14/17 01:04 97 40 06/14/17 01:01 79 19 119/57 (77) 98 06/14/17 00:01 98.8 78 22 112/56 (74) 97 06/14/17 00:01 78 22 112/56 (74) 97 06/14/17 00:00 78 20 97 06/14/17 00:00 50 06/14/17 00:00 70 06/13/17 23:01 79 19 117/53 (74) 98 06/13/17 22:05 99 40 06/13/17 22:00 84 19 135/63 (87) 100 06/13/17 22:00 82 06/13/17 21:01 100.3 81 19 129/61 (83) 99 06/13/17 20:10 100 45 06/13/17 20:00 82 20 127/60 (82) 100 06/13/17 20:00 50 06/13/17 20:00 80 06/13/17 19:19 81 19 117/56 (76) 100 06/13/17 18:00 82 06/13/17 16:00 50 06/13/17 16:00 97.8 86 19 124/58 (80) 99 06/13/17 16:00 86 06/13/17 15:55 96 70 06/13/17 14:00 93 06/13/17 12:45 97 100 06/13/17 12:00 87 06/13/17 12:00 50 06/13/17 12:00 100.5 87 20 99/54 (69) 93 06/13/17 11:01 95 45 06/13/17 11:00 85 24 101/50 (67) 93 06/13/17 10:01 87 26 102/51 (68) 94 06/13/17 10:00 86 I/O 06/13/17 06/13/17 06/13/17 06/14/17 06/14/17 06/14/17 07:00 15:00 23:00 07:00 15:00 23:00 Intake Total 1020 ml 1127.5 ml 807.5 ml 600 ml Output Total 825 ml 460 ml 650 ml 650 ml Balance 195 ml 667.5 ml 157.5 ml -50 ml Intake Oral 0 ml IV Total 100 ml 227.5 ml 207.5 ml Tube Feeding 320 ml 0 ml 0 ml Other 600 ml 900 ml 600 ml 600 ml Output Urine Total 725 ml 450 ml 500 ml Stool Total 100 ml 200 ml 150 ml Estimated Blood Loss 460 ml Laboratory Date/Time Source Procedure Growth Status 06/11/17 16:04 Blood Peripheral Aerobic Blood Culture - Preliminary NO GROWTH IN 2 DAYS Resulted 06/11/17 16:04 Blood Peripheral Anaerobic Blood Culture - Preliminary NO GROWTH IN 2 DAYS Resulted 06/08/17 15:08 Fluid Pleural Fluid Fungal Smear - Final NO FUNGAL ELEMENTS SEEN. Resulted 06/08/17 15:08 Fluid Pleural Fluid Fungal Culture Pending Resulted 06/09/17 10:25 Bronchial Washings Right Lower Lobe Fungal Smear - Final NO FUNGAL ELEMENTS SEEN. Resulted 06/09/17 10:25 Bronchial Washings Right Lower Lobe Fungal Culture Pending Resulted 06/10/17 10:55 Urine Clean Catch Urine Culture - Final Veronica Species Complete Imaging Last Impressions Chest X-Ray 06/13/17 0600 Signed Impressions: Service Date/Time: Tuesday, June 13, 2017 05:12 - CONCLUSION: ET tube, nasogastric and right IJ central line in excellent position. Heart remains enlarged Adiel Elder MD Upper Extremity Ultrasound 06/08/17 0000 Signed Impressions: Service Date/Time: May 10:45 - CONCLUSION: Superficial venous thrombosis of the bilateral upper extremities involving the cephalic veins. Deep veins are patent. Santana Eric MD Thoracentesis 06/08/17 Signed Impressions: Service Date/Time: May 14:49 - CONCLUSION: Uncomplicated CT-guided right thoracentesis with removal of 225 cc of fluid. Please note that most of the chest x-ray opacity actually represents right lower lobe airspace consolidation. Santana Shirley MD Lower Extremity Ultrasound 06/08/17 Signed Impressions: Service Date/Time: May 11:01 - CONCLUSION: Superficial venous thrombosis of the left lower extremity (left greater saphenous vein). No DVT of either lower chroni. Santana Eric MD Carotid Artery Ultrasound 06/08/17 Signed Impressions: Service Date/Time: May 10:29 - CONCLUSION: Minimal atherosclerotic plaque of the left carotid bifurcation. Otherwise normal. No significant narrowing. Santana Eric MD Lumbar Spine MRI 06/03/17 Signed Impressions: Service Date/Time: Saturday, June 03, 2017 15:42 - CONCLUSION: The MRI findings after contrast administration are not convincing for presence of active infection within the L3/L4 disc, adjacent vertebral bodies or epidural space/adjacent soft tissues. Santana Eric MD Pelvis CT 06/02/17 Signed Impressions: Service Date/Time: Friday, June 02, 2017 17:29 - CONCLUSION: No evidence of intra-abdominal abscess collection. Nikita Damon MD Abdomen X-Ray 06/02/17 Signed Impressions: Service Date/Time: Friday, June 02, 2017 15:20 - CONCLUSION: OG tube in the stomach. Mike Davis MD FACR Chest CT 06/01/17 Signed Impressions: Service Date/Time: May 18:49 - CONCLUSION: 1. Dense consolidation in both posterior lower lobes right greater than left with air bronchograms. This could represent pneumonia. 2. Small bilateral pleural effusions. 3. Mild cardiomegaly. Austin Orellana MD Brain MRI 06/01/17 Signed Impressions: Service Date/Time: May 19:15 - CONCLUSION: 1. Multiple new small scattered punctate areas of restricted diffusion consistent with small areas of infarction. This could be secondary to emboli. 2. No acute hemorrhage or mass effect. 3. Acute sinusitis in the ethmoidal air cells and sphenoid sinus with air fluid levels. Austin Orellana MD Abdomen/Pelvis CT 06/01/17 0000 Signed Impressions: Service Date/Time: May 18:49 - CONCLUSION: 1. Suboptimal opacification of the bowel with the distal small bowel unopacified. There is a questionable abnormal gas collection in the anterior lower pelvis. An abscess is not excluded. A repeat study is recommended after additional oral contrast is given. 2. Consolidation in both posterior lung bases with small pleural effusions. Austin Orellana MD Renal Ultrasound 05/31/17 0000 Signed Impressions: Service Date/Time: Wednesday, May 31, 2017 20:47 - CONCLUSION: 1. Suboptimal exam with visualization. 2. No evidence of hydronephrosis. 3. Cyst extending off right kidney. Austin Orellana MD Tumor Localization 05/26/17 0000 Signed Impressions: Service Date/Time: Friday, May 26, 2017 13:36 - CONCLUSION: No abnormal uptake identified to suggest infection. Nikita Damon MD Lumbar Puncture Fluoroscopy 05/25/17 0000 Signed Impressions: Service Date/Time: April 17:41 - CONCLUSION: Uncomplicated fluoroscopically guided lumbar puncture with pressures as above. Shoaib Davis MD Liver Ultrasound 05/21/17 0000 Signed Impressions: Service Date/Time: Sunday, May 21, 2017 10:32 - CONCLUSION: 1. Hepatic steatosis. 2. Gallstones 3. Limited evaluation of the right kidney. Santana Lamar MD Head CT [id number]/20/[id number] Signed Impressions: Service Date/Time: Saturday, May 20, 2017 19:55 - CONCLUSION: 1. No acute findings. Retention cyst right maxillary sinus. Jakob Scruggs MD Physical Exam HEENT: Normocephalic; atraumatic; no jaundice. CHEST: Course breath sounds, tracheostomy to vent CARDIAC: RRR ABDOMEN: Soft, obese, nondistended, nontender; bowel sounds are present. PEG tube site without redness or swelling EXTREMITIES: Generalized edema, Greater in BUE SKIN: No rash; no jaundice. CLASSICS PROFESSOR: Lethargic, does follow commands. (Evelin Zheng [facility]) Assessment and Plan Plan ASSESSMENT: - Reconsulted for PEG tube placement. S/P EGD with peg tube placement (06/13/17 )---> Normal EGD, Successful PEG placement Hand Profiler following and recommended Glucerna 1.5 at 60cc/hr. Site without redness or swelling. - Ruled out Diverticular abscess. CT scan without IV contrast (06/01/17)---> Suboptimal opacification of the bowel with the distal small bowel unopacified. There is a questionable abnormal gas collection in the anterior lower pelvis. An abscess is not excluded. A repeat study is recommended after additional oral contrast is given. Consolidation in both posterior lung bases with small pleural effusions. S/P GS evaluation, recommends CT guided drainage/drain placement of intra-abdominal abscess, however, CT scan without evidence of abdominal abscess. GS signed off, as there is no obvious intraabdominal source. WBC 16.2 - Elevated LFTs. Multifactorial secondary to shocked liver, infection, medications. LFTs stable. - Sepsis/Bacteremia (Gr. B Beta Strep)/Discitis/HCAP, Asp. PNA. STEVEN negative. Ceftriaxone. per ID - Resp. Failure, HCAP, Aspiration PNA, CHE. Vent per CCM. S/P tracheostomy. - Encephalopathy. MRI of the brain, which revealed multiple new small scattered punctate areas of restricted diffusion consistent with small areas of infarction, this could be secondary to emboli. Cardiology was consulted and she underwent STEVEN 06/02, which was negative for vegetations. Pt lethargic, but responding and following commands. - Anemia. 9.5/28.0 - JAMES. Improving. - DM, Hyperlipidemia per attending. PLAN: - Glucerna 1.5 at 60cc/hr - Flush tube with 50 cc of water every 4-6 hours - Always flush tube after feedings - Apply abdominal binder as necessary - Clamp G-tube after use and flush. - Monitor LFTs - GS following - ID following - CCM following - GI will sign off, please reconsult as needed - Pt seen and examined by Dr. Piper and myself and this note is written on his behalf (Evelin Zheng) Physician Comments Patient seen and examined Agree with above Continue with current supportive care Monitor labs We will sign off (Johnnie Piper MD) Evelin Zheng Jun 14, 2017 09:30 Johnnie Piper MD Jun 14, 2017 18:33
[2017-06-14] MEDS: FUROSEMIDE 20 MG/2 ML VIAL IV PUSH SCH ×2 (11:55→23:00)
--- NOTE | 2017-06-14 13:17 | HHI.CCPN ---
Subjective Remarks/Hospital Course 66-year-old female presents confused and lethargic. Patient reportedly was recently seen today at an urgent care and received an injection for low back pain. Patient here denies headaches, chest pain or shortness of breath, abdominal pain or extremity pain. Patient does complain of low back pain. at bedside states that they're visiting from out of state for the past 3 months and will be returning back to their home state in a week. reports patient has chronic low back pain but this exacerbated over the last 24 hours starting yesterday morning. Patient was seen earlier today by her chiropractor for an adjustment and then was referred to an urgent care. Patient reportedly had a fever at the chiropractor's office and felt cold and clammy. At the urgent care patient was evaluated and reportedly had an injection of a nonsteroidal medication as she is diabetic and he did not want to give her a steroid injection. Patient went home about 1:00 PM she was drowsy so sat down in a chair and fell asleep according to the . He tried to awaken her at 4:30 and noticed that she was confusional and lethargic. He attempted to continue to awaken her over the next 2-3 hours and because she was not improving decided finally to call EMS to transport her to the emergency room. Patient and spouse denied any recent injury or fall. Patient was ambulatory this morning but this evening has difficulty elevating her lower extremities as well as she was generally extremely weak. 05/21 Patient is on BIPAP 12/5 with 45% FIO2. Afebrile. Awake. Renal function is improving with Cr: 1.87 from 2.74. 05/22 No events overnight. Patient is more awake and alert off BIPAP. Renal function is improving with Cr: 1.07 from 1.87. delayed note entry. consulted and seen at ~1500. RECONSULT NOTE: 05/30: reconsulted for worsening hypoxemia. now on 6L facemask. please refer to prior consult note for detailed medical history. In brief, 66yF lethargic female, back pain after injection, ? discitis/osteo, on abx for group B strep, worsening fever, tachycardia, tachypnea, o2 requirement to 6L facemask and RR up to 40s. patient unable to provide additional history but does appear in distress. 05/31: Patient remains encephalopathic, on high flow O2 via nasal cannula, this morning was on 60 L/m 55% FiO2. Subsequently has dropped to 30 L/m to extubate percent FiO2. Given 80 mg IV Lasix with no response. Subsequently given Bumex 2 mg IV push and started on Bumex drip at 1 mg/h to attempt to diurese in an effort to improve respiratory status however has not had any increase in urine output with Bumex drip. Creatinine came back elevated at 2.13. Suspect acute kidney injury/ATN which may be a reason for poor response to diuretics. She also spiked a temperature of 103 for which IV Ofirmev was ordered. 06/01: intubated overnight and hypotensive requiring vasopressors. now remains in shock on 2 vasopressors. bedside critical care echo demonstrates hyperdynamic LV with completely collapsed IVC. gave 2L bolus and started on mivf @ 100 cc/hr. still spiking fevers. discussed with Dr. Portillo and plan to repeat LP as well as cultures and imaging to look for source. clinically worse today. 06/02: off vasopressors. remains intubated and sedated, very encephalopathic. MRI with new punctate strokes. STEVEN being done today. also ? abscess in the pelvis of unknown origin, maybe contained diverticulitis? CT guided drainage. although some improvements in hemodynamics, no improvements in vent or encephalopathy. off pathway. 06/03: IR re-ct scan without any evidence of abdominal abscess. blood glucose still not controlled despite high dose algorithm. wbc downtrending. 06/04: wbc continues to downtrend. Cr improving as well. very hypokalemic despite aggressive replacement. blood glucose now < 200, but using high dose insulin drip and levemir. encephalopathy persists. 06/05: clinically improving. weakly following commands this morning. renal function improved. EEG negative for seizures. still too sleepy for safe extubation, but improved from yesterday. 06/06: continues to improve. still weakly following commands. failing SBT- on 20 of PSV with small tidal volumes and very tachypneic. slightly more awake, but still not awake enough for safe extubation. 06/07: Currently tolerating CPAP 15 PSV. Opens eyes tracks. Weekly follows commands on the lower extremity but delayed response. Remains off all sedation approximately 36 hours now. is at the bedside updated 06/08: Fever 100.8, WBC 15.4. But slightly more awake and focussed today. Wiggles toes to command with a delay. CXR shows moderate effusion- plan for CT guided thoracentesis today. D/W IR Dr. Quintanilla and ID Dr. Portillo 06/09: Appears to be becoming more septic. Tmax 101.8. WBC count 14.8 with 21 % bands. Zyvox and cefepime started by Dr. Portillo. Chest CT yesterday showed bilateral dense consolidation at the bases left more than right. Moderate to thick secretion on bronchoscopy and bilateral lower lobes today. Bilateral airways inflamed and friable. New fever, sepsis most likely secondary to healthcare associated pneumonia. s/p right thoracentesis with 225 ml of fluid removed, exudative by light criteria. Hemorrhagic fluid. EEG 06/08 showed moderate encephalopathy, no seizures 06/10: Continues to spike fever up to 101.6. White count stable at 14.7. Had bronchoscopy with thick secretions removed from bilateral lower lobes yesterday. BAL studies are pending. Tolerate CPAP with high pressure support. Chest x-ray slightly improved 06/11: Continues to spike fever overnight fever up to 103. Cultures remain negative except for Marco Antonio UTI. Appears more lethargic. Not able to extubate due to mental status. Will request general surgery consult for tracheostomy, and GI for PEG placement 06/12: Still spiking fever 101.3 overnight, all recent culture and BAL negative. Slightly more awake, but very delayed in following commands. General surgery Dr. Hernandez will trach in OR tomorrow. Creat slightly improved. 06/13: Remains orally intubated on mechanical ventilation. Has spontaneous eye opening and tracks. Off all sedation for 4 days. Awaiting tracheostomy 06/14: Underwent tracheostomy and PEG tube placement on 06/13 tolerated procedures well. Patient remains on mechanical ventilation via tracheostomy this morning and is awake and alert. Follows some commands per nursing staff and at bedside. Objective Vital Signs Date Time Temp Pulse Resp B/P (MAP) Pulse Ox O2 Delivery O2 Flow Rate FiO2 06/14/17 12:39 98 40 06/14/17 06:00 80 06/14/17 04:01 20 128/71 (90) 06/14/17 02:01 97.6 06/11/17 08:39 Ventilator Intake and Output 06/14/17 06/14/17 06/15/17 08:00 16:00 00:00 Intake Total 600 ml Output Total 650 ml Balance -50 ml Result Diagram: 06/13/17 0400 06/13/17 0400 Imaging Last Impressions Liver Ultrasound 05/21/17 0000 Signed Impressions: Service Date/Time: Sunday, May 21, 2017 10:32 - CONCLUSION: 1. Hepatic steatosis. 2. Gallstones 3. Limited evaluation of the right kidney. Santana Lamar MD Chest X-Ray 05/21/17 0000 Signed Impressions: Service Date/Time: Sunday, May 21, 2017 06:17 - CONCLUSION: 1. Limited suboptimal study with motion artifact. 2. No definite acute cardiac pulmonary disease. Austin Orellana MD Head CT 05/20/17 1929 Signed Impressions: Service Date/Time: Saturday, May 20, 2017 19:55 - CONCLUSION: 1. No acute findings. Retention cyst right maxillary sinus. Jakob Scruggs MD Objective Remarks GENERAL: Patient is 66 yo lying in bed, off all sedation, SKIN: Warm and dry. HEAD: Normocephalic. EYES: No scleral icterus. No injection or drainage. NECK: Tracheostomy in place. LIJ central line in place CARDIOVASCULAR: S1-S2 regular, no gallop or murmur RESPIRATORY: On mechanical ventilation via tracheostomy, PS+14, PEEP+8, fio2 40% , coarse breath sounds bilaterally, no wheezing GASTROINTESTINAL: Abdomen morbidly obese, soft, non-tender, nondistended. MSK: No cyanosis, or edema. NEURO: Opens eyes to command. Weakly follows commands in lower extremity, delayed response. Localizes with UE Procedures None Date of Insertion: May 25, 2017 A/P Assessment and Plan Assessment: 66yF with encephalopathy thought to be secondary to KITCHEN MANAGER infection vs. toxic/metabolic, Multifocal CVA, hypoxic respiratory failure, sepsis. some improvements in mental status. still too somnolent for safe extubation. Respiratory failure persists. s/p right thoracentesis. will continue diuresis. continue daily SBTs while we optimize pulmonary function. Trach in OR 06/13/17 Plan: Neuro: Metabolic Encephalopathy- slight improvement. Acute CVA, multifocal areas of ischemia Possible KITCHEN MANAGER Infection Discitis - MRI brain06/01 diffuse areas of small infarcts, possibly embolic - Off all sedating medications. Remains encephalopathic - Received Versed fentanyl and rocuronium for bronchoscopy 06/09/17, off all sedation - Continue amantadine and, modafinil for wakefulness. - frequent neuro checks, continue aspirin - Prev TSH borderline high, T4 low. Continue Synthroid 25 mcg IV daily started 06/08/17. - Ammonia normal. B12 normal - EEG 06/08 moderate encephalopathy, carotid ultrasound no significant stenosis - Consult neuropsychology for encephalopathy. Resp: Acute hypoxic and hypercarbic respiratory failure - persistent. Right pleural effusion Bibasilar infiltrates/HCAP - Bronchoscopy showed inflamed airways, thick secretion bilateral lower lobes. - ABX per Dr. Portillo ID, see ID section - vent bundle, hob at 30 degrees, nebs. Attempt OOB to chair - wean fio2 for spo2 > 90% - Underwent tracheostomy 06/13. 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 - Right thoracentesis with fluid studies-exudative effusion, cultures neg to date Renal: Acute kidney injury- resolved - continue Reid -Diurese with Lasix - daily bmp FEN/GI: Shock liver - persistent Morbid obesity Hypokalemia Volume overload Acute protein calorie malnutrition- moderate Cholelithiasis - Glucerna tube feeds - ICU electrolyte protocol - daily bmp - trend LFTs - GI consulted -patient underwent PEG tube placement on 06/13 Heme/ID: New Fever ? drug related Possible HCAP marco antonio UTI Septic Shock - resolved Discitis Strep bacteremia (recent blood cultures negative) - abx per ID Dr. Portillo. On ceftriaxone/fluconazole - Bronch with BAL 06/09/17. Follow up on studies - cultures NGTD except initial 4/4 bottles with group B strp. Repeat blood cultures today - There is clinical concern for endocarditis (4/4 bottle strep, brain emboli delfino though STEVEN negative) - if discitis is truly the source and no improvements, could consider disc biopsy in the future. - F/U Send pleural fluid studies and BAL Endocrine: Severe hyperglycemia Relative Adrenal Insufficiency Possible hyperthyroidism - steroid tapered, now DCd - severe hyperglycemia despite high dose insulin drip - continue insulin drip Algorithm #4. - Levemir to 80 units SQ q12h - On levothyroxine 25 g IV daily Prophylaxis: - pepcid - SCDs - SQH Lines: - Reid: keep while active diuresis. Discussed with patient's at bedside regarding current clinical status and plan of care and he voiced understanding and was agreeable. Discussed with NURSING HOME ADMISSIONS DIRECTOR. Level 3. Mejia Portillo MD Jun 14, 2017 13:17
--- NOTE | 2017-06-14 13:31 | PD.WCN.NOT ---
Wound Consult Description: Patient seen for follow up of sacral, bilateral buttock and coccyx started as deep tissue injury is now unstageable and bilateral lower extremity eschars Communicated with: Doctor Yaa Portillo, Doctor Tammy Portillo and RN Lela [facility] Recommendation: 1. Please consult podiatry 2. Please paint bilateral lower leg eschar with povidone-iodine and leave open to air, may cover with dry 4x4 gauze and secure with rolled gauze and tape is draining BID, until seen by podiatry 3.Cleanse sacral unstageable pressure injury to sacrococcygeal and bilateral buttock with normal saline. Apply Hydrogel just over eschar and cover with dry 4x4 gauze pad to soften eschar. Apply thick layer of Calazime barrier to periwound. Do not scrub Barrier cream from patient's skin when cleaning. Ok to leave some barrier cream in place and layer cream on patient. Cover wound with ABD pad and secure with tape. Please apply skin prep before applying tape to skin. Change dressing daily. 3.Turn patient every 2 hours and PRN for comfort and to offload pressure from sacrococcygeal area. 4. Recommend plastics for possible debridement if patient is stable. Additional Information: Patient seen on [facility] for follow up of unstageable pressure injury to Bilateral buttock, sacrum and coccyx, also seen for consult for wound management of bilateral leg eschars, around 1300. Removed dressings in place to bilateral lower extremities to reveal deteriorating wounds. Recommended Santyl previously for wound on R lateral leg. Wound previously documented with ~70% yellow slough and ~30% pink tissue. Wound is now presenting with 100% eschar and measures 3.2cm x 2cm x eschar. Periwound is presenting with non blanchable purple and red intact skin that presents in jagged pattern . L lateral leg previously documented with ~90% pink tissue and ~10% yellow exudate. Recommended to Xeroform and dry 4x4 gauze pads, secured with rolled gauze and tape. Wound is now presents with 100% coverage of black eschar and surrounding purple non blanchable intact skin that is presents a jagged pattern. Wound measures 3cm x 2cmx eschar. Painted wounds to BLE with povidone-iodine and left open to air. Podiatry consult is recommended. Patient was then turned with the assistance of Lela [facility], Jennifer [facility] and data analyst report writer to reveal Unstageable wound to Sacrum, coccyx, and bilateral buttocks. Periwound has improved. Patient has Dignishield in place. Wound measures ~10cm x ~7cm x eschar. Wound bed presents with ~70% dry thin black eschar, ~20% yellow slough and ~10% pink tissue. Cleansed wound with normal saline left open to air. RN [facility] to apply dressing as recommended above. Recommend plastics for possible debridement if patient is stable. Palak Love [facility] Jun 14, 2017 13:31
--- NOTE | 2017-06-14 15:05 | HHI.PR ---
Subjective Subjective Notes Eyes open; on CPAP at bedside Objective Vitals/I&O Vital Signs Date Time Temp Pulse Resp B/P (MAP) Pulse Ox O2 Delivery O2 Flow Rate FiO2 06/14/17 12:39 98 40 06/14/17 06:00 80 06/14/17 04:01 20 128/71 (90) 06/14/17 02:01 97.6 06/11/17 08:39 Ventilator Labs Date/Time Source Procedure Growth Status 06/11/17 16:04 Blood Peripheral Aerobic Blood Culture - Preliminary NO GROWTH IN 3 DAYS Resulted 06/11/17 16:04 Blood Peripheral Anaerobic Blood Culture - Preliminary NO GROWTH IN 3 DAYS Resulted 06/08/17 15:08 Fluid Pleural Fluid Fungal Smear - Final NO FUNGAL ELEMENTS SEEN. Resulted 06/08/17 15:08 Fluid Pleural Fluid Fungal Culture Pending Resulted 06/09/17 10:25 Bronchial Washings Right Lower Lobe Fungal Smear - Final NO FUNGAL ELEMENTS SEEN. Resulted 06/09/17 10:25 Bronchial Washings Right Lower Lobe Fungal Culture Pending Resulted 06/10/17 10:55 Urine Clean Catch Urine Culture - Final Veronica Species Complete Radiology Last [address] 06/02/17 0000 Signed Impressions: Service Date/Time: Friday, June 02, 2017 17:29 - CONCLUSION: No evidence of intra-abdominal abscess collection. Nikita Damon MD Chest X-Ray 06/02/17 0000 Signed Impressions: Service Date/Time: Friday, June 02, 2017 15:14 - CONCLUSION: 1. Cardiomegaly. 2. Perihilar infiltrates consistent with mild to moderate pulmonary vascular congestion versus pneumonia. 3. Small right pleural effusion. 4. Multiple tubes and lines are stable. Nikita Damon MD Abdomen X-Ray 06/02/17 0000 Signed Impressions: Service Date/Time: Friday, June 02, 2017 15:20 - CONCLUSION: OG tube in the stomach. Mike Davis MD FACR Lumbar Spine MRI 06/01/17 0000 Signed Impressions: Service Date/Time: May 19:15 - CONCLUSION: 1. Atypical signal changes remain in the L3-4 disc and adjacent endplates The findings remain nonspecific. There is a moderate size posterior central epidural mass with mass effect on the anterior thecal sac. There is moderate central canal stenosis. The differential diagnosis includes disc protrusion versus small epidural abscess. A contrast enhanced lumbar spine study may be helpful for further evaluation. 2. Mild disc bulges at L2-3 and L4-5 levels with mild flattening the anterior thecal sac. Austin Orellana MD Chest CT 06/01/17 Signed Impressions: Service Date/Time: May 18:49 - CONCLUSION: 1. Dense consolidation in both posterior lower lobes right greater than left with air bronchograms. This could represent pneumonia. 2. Small bilateral pleural effusions. 3. Mild cardiomegaly. Austin Orellana MD Brain MRI 06/01/17 Signed Impressions: Service Date/Time: May 19:15 - CONCLUSION: 1. Multiple new small scattered punctate areas of restricted diffusion consistent with small areas of infarction. This could be secondary to emboli. 2. No acute hemorrhage or mass effect. 3. Acute sinusitis in the ethmoidal air cells and sphenoid sinus with air fluid levels. Austin Orellana MD Abdomen/Pelvis CT 06/01/17 0000 Signed Impressions: Service Date/Time: May 18:49 - CONCLUSION: 1. Suboptimal opacification of the bowel with the distal small bowel unopacified. There is a questionable abnormal gas collection in the anterior lower pelvis. An abscess is not excluded. A repeat study is recommended after additional oral contrast is given. 2. Consolidation in both posterior lung bases with small pleural effusions. Austin Orellana MD Cardiovascular: Regular Lungs: Clear Abdomen: Other (PEG in place ) Extremities: Other (moderate generalized edema ) Narrative Exam trach in place without any complications A/P Problem List: (1) Respiratory failure ICD Codes: J96.90 - Respiratory failure, unspecified, unspecified whether with hypoxia or hypercapnia Status: Acute (2) Dependent on ventilator ICD Codes: Z99.11 - Dependence on respirator [ventilator] status Status: Acute (3) Septic embolism ICD Codes: I26.90 - Septic pulmonary embolism without acute cor pulmonale (4) Diabetes ICD Codes: E11.9 - Type 2 diabetes mellitus without complications Status: Acute (5) Altered mental status ICD Codes: R41.82 - Altered mental status, unspecified Status: Acute (6) Septic shock ICD Codes: A41.9 - Sepsis, unspecified organism; R65.21 - Severe sepsis with septic shock (7) Acute renal failure ICD Codes: N17.9 - Acute kidney failure, unspecified Status: Acute (8) SIRS (systemic inflammatory response syndrome) ICD Codes: R65.10 - Systemic inflammatory response syndrome (SIRS) of non- infectious origin without acute organ dysfunction Status: Acute (9) Bacteremia due to group B Streptococcus ICD Codes: R78.81 - Bacteremia (10) Morbid obesity ICD Codes: E66.01 - Morbid (severe) obesity due to excess calories (11) Cerebral septic emboli ICD Codes: 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
--- NOTE | 2017-06-14 15:58 | HHI.PR ---
Subjective Remarks 66 YOObese WF with Hypercapnoea, Cellulitis, Bactremia Intubated Off sedation Follows simple commands No Fever at BS had trach Tolerates CPAP Objective Vital Signs Vital Signs Date Time Temp Pulse Resp B/P (MAP) Pulse Ox O2 Delivery O2 Flow Rate FiO2 06/14/17 12:39 98 40 06/14/17 08:15 40 06/14/17 08:15 98 40 06/14/17 06:00 80 06/14/17 04:15 97 40 06/14/17 04:01 82 20 128/71 (90) 96 06/14/17 04:00 50 06/14/17 04:00 80 06/14/17 03:01 80 18 126/58 (80) 100 06/14/17 02:01 97.6 79 19 118/56 (76) 100 06/14/17 02:00 81 06/14/17 01:04 97 40 06/14/17 01:01 79 19 119/57 (77) 98 06/14/17 00:01 98.8 78 22 112/56 (74) 97 06/14/17 00:01 78 22 112/56 (74) 97 06/14/17 00:00 78 20 97 06/14/17 00:00 50 06/14/17 00:00 70 06/13/17 23:01 79 19 117/53 (74) 98 06/13/17 22:05 99 40 06/13/17 22:00 84 19 135/63 (87) 100 06/13/17 22:00 82 06/13/17 21:01 100.3 81 19 129/61 (83) 99 06/13/17 20:10 100 45 06/13/17 20:00 82 20 127/60 (82) 100 06/13/17 20:00 50 06/13/17 20:00 80 06/13/17 19:19 81 19 117/56 (76) 100 06/13/17 18:00 82 06/13/17 16:00 50 06/13/17 16:00 97.8 86 19 124/58 (80) 99 06/13/17 16:00 86 I/O 06/13/17 06/13/17 06/13/17 06/14/17 06/14/17 06/14/17 07:00 15:00 23:00 07:00 15:00 23:00 Intake Total 1020 ml 1127.5 ml 807.5 ml 600 ml Output Total 825 ml 460 ml 650 ml 650 ml Balance 195 ml 667.5 ml 157.5 ml -50 ml Intake Oral 0 ml IV Total 100 ml 227.5 ml 207.5 ml Tube Feeding 320 ml 0 ml 0 ml Other 600 ml 900 ml 600 ml 600 ml Output Urine Total 725 ml 450 ml 500 ml Stool Total 100 ml 200 ml 150 ml Estimated Blood Loss 460 ml Result Diagram: 06/13/1739906/13/17399 Objective Remarks GENERAL: Morbidly obese WF, mild sob SKIN: Warm and dry. HEAD: Normocephalic. EYES: No scleral icterus. No injection or drainage. NECK: Supple, trachea midline. No JVD or lymphadenopathy. CARDIOVASCULAR: Regular rate and rhythm without murmurs, gallops, or rubs. RESPIRATORY: Breath sounds equal bilaterally. No accessory muscle use. GASTROINTESTINAL: Abdomen soft, non-tender, nondistended. MUSCULOSKELETAL: No cyanosis, or edema. has swelling and redness of legs BACK: Nontender without obvious deformity. No CVA tenderness. A/P Assessment and Plan Hypercapnoic Resp Insuff CHE or Obesity Hypoventilation synd Cellulitis legs Bactremia back pain Sepsis Encephalopathy PLAN: Vent Support Aerosol nebs Wean 02 to keep sat 88-92% Abx per ID Cont Dilantin Cont CPAp as tolerated DW at Dima Bang MD Jun 14, 2017 15:58
--- NOTE | 2017-06-14 22:17 | PD.CONS ---
History of Present Illness Service Podiatry Consult Requested By Reason for Consult lesions on legs Primary Care Physician No Primary Care Physician Diagnoses: History of Present Illness Patient has had blistering occurring on the legs that has how turned darker, dry , and have been having dark red areas surrounding them. This was a concern for wound care and it was requested that a recommendation be made for further care. Past Family Social History Allergies: Coded Allergies: No Known Allergies (Unverified , 05/20/17) Past Medical History Hyperlipidemia HTN DM Sciatica Past Surgical History Hysterectomy Active Ordered Medications Current Medications Medications (Trade) Dose Ordered Sig/Erasmo Route Start Time Stop Time Status Last Admin (Heparin Inj) 5,000 units Q8H SQ 05/20/17 22:00 Future Hold 06/12/17 22:02 Miscellaneous Information 1 Q361D XX 05/20/17 22:30 (Chlorhexidine 2% Cloth) Taper DAILY@04 TOP 05/21/17 04:00 05/17/18 03:59 06/13/17 04:00 (Chlorhexidine 2% Cloth) 3 pack UNSCH PRN TOP 05/20/17 22:30 (Tylenol) 650 mg Q6H PRN PO 05/21/17 01:30 06/13/17 21:32 (Duoneb Neb) 1 ampule Q2HR NEB PRN NEB 05/21/17 05:45 06/14/17 08:22 (Glucagon Inj) 1 mg UNSCH PRN OTHER 05/22/17 07:30 (NS Flush) 2 ml UNSCH PRN IV FLUSH 05/24/17 12:15 06/04/17 20:38 (NS Flush) 2 ml BID IV FLUSH 05/24/17 21:00 06/14/17 08:52 (Narcan Inj) 0.4 mg UNSCH PRN IV PUSH 05/24/17 12:15 (May-Colace) 1 tab BID PO 05/24/17 21:00 06/14/17 08:53 (Milk Of Magnesia Liq) 30 ml Q12H PRN PO 05/24/17 12:15 05/24/17 13:45 (Senokot) 17.2 mg Q12H PRN PO 05/24/17 12:15 (Dulcolax Supp) 10 mg DAILY PRN RECTAL 05/24/17 12:15 (Lactulose Liq) 30 ml DAILY PRN PO 05/24/17 12:15 Ceftriaxone Sodium 2000 mg/ Sodium Chloride 100 ml @ 200 mls/hr Q12H IV 05/25/17 17:00 06/14/17 16:21 (Mycostatin Powder) 1 applic Q12HR TOPICAL 05/30/17 10:00 06/14/17 08:53 (Tylenol Supp) 650 mg Q6H PRN RECTAL 05/30/17 13:15 05/30/17 14:06 (Ofirmev 1000 Mg/ 100 ml Inj) 1,000 mg Q6H PRN IV 05/31/17 16:30 06/11/17 20:08 Insulin Human Regular 100 units/ Sodium Chloride 100 ml @ 3 mls/hr TITRATE PRN IV 06/01/17 11:45 06/13/17 09:36 (D50w (Vial) Inj) 50 ml UNSCH PRN IV PUSH 06/01/17 11:45 Levetriacetam 750 mg/Sodium Chloride 107.5 ml @ 430 mls/hr Q12HR IV 06/01/17 21:00 06/14/17 08:52 (Mag-Ox) 800 mg UNSCH PRN PO 06/03/17 11:00 Magnesium Sulfate 4 gm/Sodium Chloride 100 ml @ 50 mls/hr UNSCH PRN IV 06/03/17 11:00 Magnesium Sulfate 2 gm/Sodium Chloride 100 ml @ 50 mls/hr UNSCH PRN IV 06/03/17 11:00 06/08/17 17:47 Potassium Chloride 100 ml @ 50 mls/hr Q2H PRN IV 06/03/17 11:00 06/08/17 13:15 Potassium Chloride 100 ml @ 50 mls/hr Q2H PRN IV 06/03/17 11:00 Potassium Chloride 100 ml @ 50 mls/hr Q2H PRN IV 06/03/17 11:00 06/04/17 06:36 Potassium Chloride 100 ml @ 25 mls/hr UNSCH PRN IV 06/03/17 11:00 06/10/17 06:46 (K-Phos) 2,000 mg Q4H PRN PO 06/03/17 11:00 (K-Phos) 2,000 mg UNSCH PRN PO/TUBE 06/03/17 11:00 Potassium Phosphate 30 mmol/ Sodium Chloride 260 ml @ 42 mls/hr UNSCH PRN IV 06/03/17 11:00 06/07/17 11:08 Sodium Phosphate 30 mmol/Sodium Chloride 250 ml @ 42 mls/hr UNSCH PRN IV 06/03/17 11:00 06/05/17 11:06 (Aspirin) 325 mg DAILY PO 06/03/17 11:00 06/14/17 08:53 (Symmetrel Liq) 200 mg BID@07,12 PO 06/03/17 12:00 06/14/17 11:55 (Pepcid Inj) 20 mg Q12HR IV PUSH 06/05/17 21:00 06/14/17 08:52 (Provigil) 200 mg DAILY PO 06/06/17 09:00 06/14/17 08:53 (Trandate Inj) 10 mg Q4H PRN IV PUSH 06/05/17 23:00 06/06/17 16:51 (Apresoline Inj) 20 mg Q4H PRN IV PUSH 06/05/17 23:00 (Free Water) VOLUME: 300 ML Q6HR G-TUBE 06/06/17 11:00 06/14/17 16:21 (Coreg) 6.25 mg Q12HR PO 06/06/17 11:30 06/14/17 08:53 (Levemir Inj) 80 units Q12HR SQ 06/07/17 21:00 06/14/17 08:53 (Synthroid Inj) 25 mcg DAILY@06 IV PUSH 06/08/17 10:00 06/14/17 06:00 (Santyl Oint) 1 applic DAILY TOPICAL 06/10/17 09:00 06/14/17 08:53 (Lasix Inj) 20 mg Q12H IV PUSH 06/12/17 23:00 06/14/17 11:55 Family History denies Social History denies Physical Exam Vital Signs Vital Signs Date Time Temp Pulse Resp B/P (MAP) Pulse Ox O2 Delivery O2 Flow Rate FiO2 06/14/17 19:42 98 40 06/14/17 18:00 86 06/14/17 16:10 98 40 06/14/17 16:00 50 06/14/17 16:00 82 06/14/17 16:00 98.3 82 28 126/53 (77) 95 06/14/17 14:00 83 06/14/17 12:39 98 40 06/14/17 12:00 40 06/14/17 12:00 98.3 78 15 127/61 (83) 96 06/14/17 12:00 78 06/14/17 10:00 79 06/14/17 08:15 40 06/14/17 08:15 98 40 06/14/17 08:00 40 06/14/17 08:00 99.2 81 17 136/72 (93) 96 06/14/17 08:00 81 06/14/17 06:00 80 06/14/17 04:15 97 40 06/14/17 04:01 82 20 128/71 (90) 96 06/14/17 04:00 50 06/14/17 04:00 80 06/14/17 03:01 80 18 126/58 (80) 100 06/14/17 02:01 97.6 79 19 118/56 (76) 100 06/14/17 02:00 81 06/14/17 01:04 97 40 06/14/17 01:01 79 19 119/57 (77) 98 06/14/17 00:01 98.8 78 22 112/56 (74) 97 06/14/17 00:01 78 22 112/56 (74) 97 06/14/17 00:00 78 20 97 06/14/17 00:00 50 06/14/17 00:00 70 06/13/17 23:01 79 19 117/53 (74) 98 Physical Exam R and L calf posteriorly with central dried-up hard areas, approx 2cm diameter, dark red in color transitioning to normal skin texture in 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 Palpable pulses. Warm skin temperature. No ascending erythema. Laboratory Date/Time Source Procedure Growth Status 06/11/17 16:04 Blood Peripheral Aerobic Blood Culture - Preliminary NO GROWTH IN 3 DAYS Resulted 06/11/17 16:04 Blood Peripheral Anaerobic Blood Culture - Preliminary NO GROWTH IN 3 DAYS Resulted 06/08/17 15:08 Fluid Pleural Fluid Fungal Smear - Final NO FUNGAL ELEMENTS SEEN. Resulted 06/08/17 15:08 Fluid Pleural Fluid Fungal Culture Pending Resulted 06/09/17 10:25 Bronchial Washings Right Lower Lobe Fungal Smear - Final NO FUNGAL ELEMENTS SEEN. Resulted 06/09/17 10:25 Bronchial Washings Right Lower Lobe Fungal Culture Pending Resulted 06/10/17 10:55 Urine Clean Catch Urine Culture - Final Veronica Species Complete Result Diagram: 06/13/17 0400 06/13/17 0400 Imaging Last 72 hours Impressions Chest X-Ray 06/13/17 0600 Signed Impressions: Service Date/Time: Tuesday, June 13, 2017 05:12 - CONCLUSION: ET tube, nasogastric and right IJ central line in excellent position. Heart remains enlarged Adiel Elder MD Chest X-Ray 06/13/17 0000 Signed Impressions: Service Date/Time: Tuesday, June 13, 2017 14:21 - CONCLUSION: 1. Tracheostomy overlies the trachea no pneumothorax is visualized. 2. Stable enlargement of the cardiac silhouette. Mild bibasilar opacities are present. Santana Shirley MD Chest X-Ray 06/12/17 0600 Signed Impressions: Service Date/Time: Monday, June 12, 2017 04:23 - CONCLUSION: Tubes and catheters are in good position. Mild pulmonary vascular congestion. Adiel Elder MD Assessment and Plan Assessment and Plan Skin lesions R and L legs Possible vasculitis? Continue to monitor. Do not recommend biopsy at this time until cycle of skin changes monitored more closely. Agree with d/c of fany to wounds and recommend betadine swab as ordered. No surgical intervention planned at this time Salena Shanks DPM Jun 14, 2017 22:17
[2017-06-14] MEDS: ACETAMINOPHEN 325 MG TAB PO PRN (22:57)
[2017-06-15] VITALS (19 sets, daily range): BP systolic 118–155; BP diastolic 54–73; PULSE 82–91; RESP 15–22; TEMP 99–100.8; O2SAT 89–99
[2017-06-15] MEDS: INSULIN REGULAR (IV INFUSION) 100 UNITS in SODIUM CHLORIDE 0.9% INJ 99 ML IV PRN ×3 (00:40→16:30)
[2017-06-15] MEDS: cefTRIAXone INJ 2,000 MG in SODIUM CHLORIDE 0.9% INJ 100 ML IV SCH ×2 (05:00→16:23)
[2017-06-15] MEDS: CHLORHEXIDINE GLUCONATE 2 % 1 PACK (2 CLOTHS) TOP SCH (05:00)
[2017-06-15] MEDS: FREE WATER G-TUBE SCH ×4 (06:00→17:29)
[2017-06-15] MEDS: LEVOTHYROXINE SODIUM 100 MCG VIAL IV PUSH SCH (06:00)
[2017-06-15] MEDS: RESP: ALBUTEROL 2.5 MG/IPRATROPIUM 0.5 MG NEB (PRN) NEB (07:39)
[2017-06-15] MEDS: COLLAGENASE OINT 30 GM TUBE TOPICAL SCH (09:00)
[2017-06-15] MEDS: levETIRAcetam INJ 750 MG in SODIUM CHLORIDE 0.9% INJ 100 ML IV SCH ×2 (09:12→21:28)
[2017-06-15] MEDS: FAMOTIDINE 20 MG/2 ML VIAL IV PUSH SCH ×2 (09:12→21:28)
[2017-06-15] MEDS: ASPIRIN 325 MG TAB PO SCH (09:14)
[2017-06-15] MEDS: MODAFINIL 200 MG TAB PO SCH (09:14)
[2017-06-15] MEDS: SODIUM CHLORIDE 0.9% FLUSH 10 ML FLUSH IV FLUSH SCH ×2 (09:14→21:28)
[2017-06-15] MEDS: DOCUSATE SODIUM 50 MG/SENNA 8.6 MG TAB PO SCH ×2 (09:14→21:29)
[2017-06-15] MEDS: CARVEDILOL 6.25 MG TAB PO SCH ×2 (09:14→21:29)
[2017-06-15] MEDS: NYSTATIN 100,000 U/GM PWD 15 GM BTL TOPICAL SCH (09:14)
[2017-06-15] MEDS: INSULIN DETEMIR 100 UNITS/ML VIAL SQ SCH ×2 (09:19→21:00)
[2017-06-15] MEDS: AMANTADINE HCL SOLN 100 MG/10 ML UDC PO SCH ×2 (10:18→12:29)
[2017-06-15] MEDS: FUROSEMIDE 20 MG/2 ML VIAL IV PUSH SCH ×2 (10:18→21:29)
[2017-06-15 10:50] LABS: HEMATOCRIT 28.4 % (35.0-46.0); MEAN CELL VOLUME 97.3 FL (80.0-100.0); MEAN CORPUSCULAR HEMOGLOBIN 31.4 PG (27.0-34.0); MEAN CORPUSCULAR HGB CONC 32.3 % (32.0-36.0); PLATELET COUNT 133 TH/MM3 (150-450); RED BLOOD COUNT 2.92 MIL/MM3 (4.00-5.30); RED CELL DISTRIBUTION WIDTH 18.4 % (11.6-17.2); WHITE BLOOD COUNT 13.6 TH/MM3 (4.0-11.0)
[2017-06-15 10:54] LABS: HEMO FLAGS AUTO DIFF
[2017-06-15 11:36] LABS: ALKALINE PHOSPHATASE 449 U/L (45-117); ALT (GPT) 26 U/L (10-53); ANION GAP 9 MEQ/L (5-15); BICARBONATE 32.4 MEQ/L (21.0-32.0); CHLORIDE 97 MEQ/L (98-107); GLOMERULAR FILTRATION RATE 81 ML/MIN (>89); POTASSIUM 3.2 MEQ/L (3.5-5.1); SODIUM (NA) 138 MEQ/L (136-145); TOTAL BILIRUBIN ADULT 0.7 MG/DL (0.2-1.0)
[2017-06-15 11:38] LABS: BLOOD UREA NITROGEN 12 MG/DL (7-18)
[2017-06-15 11:43] LABS: BANDS 15 % (0-6); CORRECTED NUCLEATED RBC 7 /100 WBC (0-0); EOSINOPHILS 7 % (0-4); METAMYELOCYTES 6 % (0-1); MYELOCYTES 1 % (0-0); NEUTROPHIL # MANUAL DIFF 10.2 TH/MM3 (1.8-7.7); POLYCHROMASIA 3.1 % (0.0-1.9); POLYS (SEG NEUTROPHILS) 52 % (16-70); PROMYELOCYTES 1 % (0-0); WBC DIFF SAMPLE 100
[2017-06-15 11:44] LABS: PLATELET ESTIMATE SMEAR LOW (NORMAL); PLATELET MORPHOLOGY ENLARGED (NORMAL); SCAN/DIFF FINAL DIFF MANUAL
[2017-06-15 12:07] LABS: AST (GOT) 63 U/L (15-37)
[2017-06-15] MEDS: POTASSIUM CHLOR 40 MEQ PREMIX 100 ML IV PRN ×2 (12:29→14:26)
--- NOTE | 2017-06-15 14:38 | HHI.CCPN ---
Subjective Remarks/Hospital Course 66-year-old female presents confused and lethargic. Patient reportedly was recently seen today at an urgent care and received an injection for low back pain. Patient here denies headaches, chest pain or shortness of breath, abdominal pain or extremity pain. Patient does complain of low back pain. at bedside states that they're visiting from out of state for the past 3 months and will be returning back to their home state in a week. reports patient has chronic low back pain but this exacerbated over the last 24 hours starting yesterday morning. Patient was seen earlier today by her chiropractor for an adjustment and then was referred to an urgent care. Patient reportedly had a fever at the chiropractor's office and felt cold and clammy. At the urgent care patient was evaluated and reportedly had an injection of a nonsteroidal medication as she is diabetic and he did not want to give her a steroid injection. Patient went home about 1:00 PM she was drowsy so sat down in a chair and fell asleep according to the . He tried to awaken her at 4:30 and noticed that she was confusional and lethargic. He attempted to continue to awaken her over the next 2-3 hours and because she was not improving decided finally to call EMS to transport her to the emergency room. Patient and spouse denied any recent injury or fall. Patient was ambulatory this morning but this evening has difficulty elevating her lower extremities as well as she was generally extremely weak. 05/21 Patient is on BIPAP 12/5 with 45% FIO2. Afebrile. Awake. Renal function is improving with Cr: 1.87 from 2.74. 05/22 No events overnight. Patient is more awake and alert off BIPAP. Renal function is improving with Cr: 1.07 from 1.87. delayed note entry. consulted and seen at ~1500. RECONSULT NOTE: 05/30: reconsulted for worsening hypoxemia. now on 6L facemask. please refer to prior consult note for detailed medical history. In brief, 66yF lethargic female, back pain after injection, ? discitis/osteo, on abx for group B strep, worsening fever, tachycardia, tachypnea, o2 requirement to 6L facemask and RR up to 40s. patient unable to provide additional history but does appear in distress. 05/31: Patient remains encephalopathic, on high flow O2 via nasal cannula, this morning was on 60 L/m 55% FiO2. Subsequently has dropped to 30 L/m to extubate percent FiO2. Given 80 mg IV Lasix with no response. Subsequently given Bumex 2 mg IV push and started on Bumex drip at 1 mg/h to attempt to diurese in an effort to improve respiratory status however has not had any increase in urine output with Bumex drip. Creatinine came back elevated at 2.13. Suspect acute kidney injury/ATN which may be a reason for poor response to diuretics. She also spiked a temperature of 103 for which IV Ofirmev was ordered. 06/01: intubated overnight and hypotensive requiring vasopressors. now remains in shock on 2 vasopressors. bedside critical care echo demonstrates hyperdynamic LV with completely collapsed IVC. gave 2L bolus and started on mivf @ 100 cc/hr. still spiking fevers. discussed with Dr. Portillo and plan to repeat LP as well as cultures and imaging to look for source. clinically worse today. 06/02: off vasopressors. remains intubated and sedated, very encephalopathic. MRI with new punctate strokes. STEVEN being done today. also ? abscess in the pelvis of unknown origin, maybe contained diverticulitis? CT guided drainage. although some improvements in hemodynamics, no improvements in vent or encephalopathy. off pathway. 06/03: IR re-ct scan without any evidence of abdominal abscess. blood glucose still not controlled despite high dose algorithm. wbc downtrending. 06/04: wbc continues to downtrend. Cr improving as well. very hypokalemic despite aggressive replacement. blood glucose now < 200, but using high dose insulin drip and levemir. encephalopathy persists. 06/05: clinically improving. weakly following commands this morning. renal function improved. EEG negative for seizures. still too sleepy for safe extubation, but improved from yesterday. 06/06: continues to improve. still weakly following commands. failing SBT- on 20 of PSV with small tidal volumes and very tachypneic. slightly more awake, but still not awake enough for safe extubation. 06/07: Currently tolerating CPAP 15 PSV. Opens eyes tracks. Weekly follows commands on the lower extremity but delayed response. Remains off all sedation approximately 36 hours now. is at the bedside updated 06/08: Fever 100.8, WBC 15.4. But slightly more awake and focussed today. Wiggles toes to command with a delay. CXR shows moderate effusion- plan for CT guided thoracentesis today. D/W IR Dr. Quintanilla and ID Dr. Portillo 06/09: Appears to be becoming more septic. Tmax 101.8. WBC count 14.8 with 21 % bands. Zyvox and cefepime started by Dr. Portillo. Chest CT yesterday showed bilateral dense consolidation at the bases left more than right. Moderate to thick secretion on bronchoscopy and bilateral lower lobes today. Bilateral airways inflamed and friable. New fever, sepsis most likely secondary to healthcare associated pneumonia. s/p right thoracentesis with 225 ml of fluid removed, exudative by light criteria. Hemorrhagic fluid. EEG 06/08 showed moderate encephalopathy, no seizures 06/10: Continues to spike fever up to 101.6. White count stable at 14.7. Had bronchoscopy with thick secretions removed from bilateral lower lobes yesterday. BAL studies are pending. Tolerate CPAP with high pressure support. Chest x-ray slightly improved 06/11: Continues to spike fever overnight fever up to 103. Cultures remain negative except for Marco Antonio UTI. Appears more lethargic. Not able to extubate due to mental status. Will request general surgery consult for tracheostomy, and GI for PEG placement 06/12: Still spiking fever 101.3 overnight, all recent culture and BAL negative. Slightly more awake, but very delayed in following commands. General surgery Dr. Hernandez will trach in OR tomorrow. Creat slightly improved. 06/13: Remains orally intubated on mechanical ventilation. Has spontaneous eye opening and tracks. Off all sedation for 4 days. Awaiting tracheostomy 06/14: Underwent tracheostomy and PEG tube placement on 06/13 tolerated procedures well. Patient remains on mechanical ventilation via tracheostomy this morning and is awake and alert. Follows some commands per nursing staff and at bedside. 06/15: Remains on mechanical ventilation via tracheostomy. Tolerating tube feeds via PEG. Awake, tracks. Objective Vital Signs Date Time Temp Pulse Resp B/P (MAP) Pulse Ox O2 Delivery O2 Flow Rate FiO2 06/15/17 14:00 85 06/15/17 13:57 89 40 06/15/17 12:00 100.0 15 118/54 (75) 06/15/17 03:38 Ventilator Intake and Output 06/15/17 06/15/17 06/16/17 08:00 16:00 00:00 Intake Total 1362 ml 207.5 ml Output Total 450 ml Balance 912 ml 207.5 ml Result Diagram: 06/15/17 1007 06/15/17 1007 Imaging Last Impressions Liver Ultrasound 05/21/17 0000 Signed Impressions: Service Date/Time: Sunday, May 21, 2017 10:32 - CONCLUSION: 1. Hepatic steatosis. 2. Gallstones 3. Limited evaluation of the right kidney. Santana Lamar MD Chest X-Ray 05/21/17 0000 Signed Impressions: Service Date/Time: Sunday, May 21, 2017 06:17 - CONCLUSION: 1. Limited suboptimal study with motion artifact. 2. No definite acute cardiac pulmonary disease. Austin Orellana MD Head CT [id number]/20/[id number] Signed Impressions: Service Date/Time: Saturday, May 20, 2017 19:55 - CONCLUSION: 1. No acute findings. Retention cyst right maxillary sinus. Jakob Scruggs MD Objective Remarks GENERAL: Patient is 66 yo lying in bed, off all sedation, SKIN: Warm and dry. HEAD: Normocephalic. EYES: No scleral icterus. No injection or drainage. NECK: Tracheostomy in place. LIJ central line in place CARDIOVASCULAR: S1-S2 regular, no gallop or murmur RESPIRATORY: On mechanical ventilation via tracheostomy, PS+14, PEEP+8, fio2 40% , coarse breath sounds bilaterally, no wheezing GASTROINTESTINAL: Abdomen morbidly obese, soft, non-tender, nondistended. MSK: No cyanosis, or edema. NEURO: Opens eyes to command. Weakly follows commands in lower extremity, delayed response. Localizes with UE Procedures None Date of Insertion: May 25, 2017 A/P Assessment and Plan Assessment: 66yF with encephalopathy thought to be secondary to [employer] O[employer]ATOR infection vs. toxic/metabolic, Multifocal CVA, hypoxic respiratory failure, sepsis. some improvements in mental status. still too somnolent for safe extubation. Respiratory failure persists. s/p right thoracentesis. will continue diuresis. continue daily SBTs while we optimize pulmonary function. Trach in OR 06/13/17 Plan: Neuro: Metabolic Encephalopathy- slight improvement. Acute CVA, multifocal areas of ischemia Possible [employer] O[employer]ATOR Infection Discitis - MRI brain06/01 diffuse areas of small infarcts, possibly embolic - Off all sedating medications. Remains encephalopathic - Received Versed fentanyl and rocuronium for bronchoscopy 06/09/17, off all sedation - Continue amantadine and, modafinil for wakefulness. - frequent neuro checks, continue aspirin - Prev TSH borderline high, T4 low. Continue Synthroid 25 mcg IV daily started 06/08/17. - Ammonia normal. B12 normal - EEG 06/08 moderate encephalopathy, carotid ultrasound no significant stenosis - Consult neuropsychology for encephalopathy. Resp: Acute hypoxic and hypercarbic respiratory failure - persistent. Right pleural effusion Bibasilar infiltrates/HCAP - Bronchoscopy showed inflamed airways, thick secretion bilateral lower lobes. - ABX per Dr. Portillo ID, see ID section - vent bundle, hob at 30 degrees, nebs. Attempt OOB to chair - wean fio2 for spo2 > 90% - Underwent tracheostomy 06/13. 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 - Right thoracentesis with fluid studies-exudative effusion, cultures neg to date Renal: Acute kidney injury- resolved - continue Reid -Diurese with Lasix - daily bmp FEN/GI: Shock liver - persistent Morbid obesity Hypokalemia Volume overload Acute protein calorie malnutrition- moderate Cholelithiasis - Glucerna tube feeds - ICU electrolyte protocol - daily bmp - trend LFTs - GI consulted -patient underwent PEG tube placement on 06/13 Heme/ID: New Fever ? drug related Possible HCAP marco antonio UTI Septic Shock - resolved Discitis Strep bacteremia (recent blood cultures negative) - abx per ID Dr. Portillo. On ceftriaxone/fluconazole - Bronch with BAL 06/09/17. Follow up on studies - cultures NGTD except initial 4/4 bottles with group B strp. Repeat blood cultures today - There is clinical concern for endocarditis (4/4 bottle strep, brain emboli delfino though STEVEN negative) - F/U Send pleural fluid studies and BAL Endocrine: Severe hyperglycemia Relative Adrenal Insufficiency Possible hyperthyroidism - steroid tapered, now DCd - severe hyperglycemia despite high dose insulin drip - continue insulin drip Algorithm #4. - Levemir 80 units SQ q12h - On levothyroxine 25 g IV daily Prophylaxis: - pepcid - SCDs - SQH Lines: - Reid: keep while active diuresis. Discussed with patient's at bedside regarding current clinical status and plan of care and he voiced understanding and was agreeable. Discussed with [facility] [employer]. Level 3. Mejia Portillo MD Jun 15, 2017 14:37
--- NOTE | 2017-06-15 15:40 | HHI.PR ---
Subjective Remarks 66 YOObese WF with Hypercapnoea, Cellulitis, Bactremia Intubated Off sedation Follows simple commands No Fever at BS had trach Tolerated CPAP 8 hrs, tired, put back on vent Objective Vital Signs Vital Signs Date Time Temp Pulse Resp B/P (MAP) Pulse Ox O2 Delivery O2 Flow Rate FiO2 06/15/17 15:04 96 40 06/15/17 14:00 85 06/15/17 13:57 89 40 06/15/17 12:00 100.0 83 15 118/54 (75) 95 06/15/17 12:00 40 06/15/17 12:00 40 06/15/17 12:00 85 06/15/17 10:17 40 06/15/17 10:00 87 06/15/17 08:00 85 06/15/17 08:00 40 06/15/17 08:00 99.3 85 22 144/63 (90) 93 06/15/17 07:40 96 40 06/15/17 07:40 40 06/15/17 06:00 91 06/15/17 04:00 40 06/15/17 04:00 91 06/15/17 04:00 99.0 82 20 135/62 (86) 97 06/15/17 03:38 97 Ventilator 06/15/17 03:33 96 40 06/15/17 02:00 91 06/15/17 00:00 99.5 91 20 155/62 (93) 94 06/15/17 00:00 91 06/15/17 00:00 40 06/14/17 23:22 97 40 06/14/17 22:00 90 06/14/17 20:00 100.7 90 25 145/63 (90) 95 06/14/17 20:00 40 06/14/17 20:00 90 06/14/17 19:42 98 40 06/14/17 18:00 86 06/14/17 16:10 98 40 06/14/17 16:00 50 06/14/17 16:00 82 06/14/17 16:00 98.3 82 28 126/53 (77) 95 I/O 06/14/17 06/14/17 06/14/17 06/15/17 06/15/17 06/15/17 07:00 15:00 23:00 07:00 15:00 23:00 Intake Total 600 ml 405 ml 1362 ml 207.5 ml Output Total 650 ml 950 ml 450 ml Balance -50 ml -545 ml 912 ml 207.5 ml IV Total 100 ml 207.5 ml Tube Feeding 0 ml 305 ml 762 ml Other 600 ml 600 ml Output Urine Total 500 ml 450 ml 450 ml Stool Total 150 ml 500 ml 0 ml Result Diagram: 06/15/17 1007 06/15/17 1007 Objective Remarks GENERAL: Morbidly obese WF, mild sob SKIN: Warm and dry. HEAD: Normocephalic. EYES: No scleral icterus. No injection or drainage. NECK: Supple, trachea midline. No JVD or lymphadenopathy. CARDIOVASCULAR: Regular rate and rhythm without murmurs, gallops, or rubs. RESPIRATORY: Breath sounds equal bilaterally. No accessory muscle use. GASTROINTESTINAL: Abdomen soft, non-tender, nondistended. MUSCULOSKELETAL: No cyanosis, or edema. has swelling and redness of legs BACK: Nontender without obvious deformity. No CVA tenderness. A/P Assessment and Plan Hypercapnoic Resp Insuff CHE or Obesity Hypoventilation synd Cellulitis legs Bactremia back pain Sepsis Encephalopathy PLAN: Vent Support Aerosol nebs Wean 02 to keep sat 88-92% Abx per ID Cont Dilantin Daily CPAP trial. DW at BS Dima Bang MD Jun 15, 2017 15:40
[2017-06-15] MEDS: ACETAMINOPHEN 1000 MG/100 ML VIAL IV PRN (16:35)
--- NOTE | 2017-06-15 16:56 | HHI.PR ---
Addendum to Inpatient Note Additional Information Spoke to MD Anderson from [facility] at [phone]. Updated about ID as well as vitals, labs. He will call RN to get vent settings. ID plan communicated. Dw compounding pharmacy technician and [facility] MD. Nan Portillo MD Jun 15, 2017 16:56
[2017-06-16] VITALS (18 sets, daily range): BP systolic 108–168; BP diastolic 64–70; PULSE 90–104; RESP 19–30; TEMP 97.8–100.4; O2SAT 94–98
[2017-06-16] MEDS: NYSTATIN 100,000 U/GM PWD 15 GM BTL TOPICAL SCH ×3 (00:40→22:23)
[2017-06-16] MEDS: INSULIN REGULAR (IV INFUSION) 100 UNITS in SODIUM CHLORIDE 0.9% INJ 99 ML IV PRN ×4 (00:43→18:58)
[2017-06-16] MEDS: CHLORHEXIDINE GLUCONATE 2 % 1 PACK (2 CLOTHS) TOP SCH (04:00)
[2017-06-16] MEDS: FREE WATER G-TUBE SCH ×2 (06:00)
[2017-06-16] MEDS: cefTRIAXone INJ 2,000 MG in SODIUM CHLORIDE 0.9% INJ 100 ML IV SCH ×2 (06:24→16:02)
[2017-06-16] MEDS: AMANTADINE HCL SOLN 100 MG/10 ML UDC PO SCH ×2 (06:25→12:08)
[2017-06-16] MEDS: LEVOTHYROXINE SODIUM 100 MCG VIAL IV PUSH SCH (06:25)
[2017-06-16] MEDS: RESP: ALBUTEROL 2.5 MG/IPRATROPIUM 0.5 MG NEB (PRN) NEB ×2 (07:47→15:34)
[2017-06-16] MEDS: levETIRAcetam INJ 750 MG in SODIUM CHLORIDE 0.9% INJ 100 ML IV SCH ×2 (08:46→22:22)
[2017-06-16] MEDS: COLLAGENASE OINT 30 GM TUBE TOPICAL SCH (08:47)
[2017-06-16] MEDS: CARVEDILOL 6.25 MG TAB PO SCH ×2 (08:47→22:23)
[2017-06-16] MEDS: DOCUSATE SODIUM 50 MG/SENNA 8.6 MG TAB PO SCH ×2 (08:47→22:23)
[2017-06-16] MEDS: SODIUM CHLORIDE 0.9% FLUSH 10 ML FLUSH IV FLUSH SCH ×2 (08:47→22:22)
[2017-06-16] MEDS: FAMOTIDINE 20 MG/2 ML VIAL IV PUSH SCH ×2 (08:47→22:22)
[2017-06-16] MEDS: INSULIN DETEMIR 100 UNITS/ML VIAL SQ SCH ×2 (08:47→22:23)
[2017-06-16] MEDS: MODAFINIL 200 MG TAB PO SCH (08:47)
[2017-06-16] MEDS: ASPIRIN 325 MG TAB PO SCH (08:47)
--- NOTE | 2017-06-16 08:53 | HHI.CCPN ---
Subjective Remarks/Hospital Course 66-year-old female presents confused and lethargic. Patient reportedly was recently seen today at an urgent care and received an injection for low back pain. Patient here denies headaches, chest pain or shortness of breath, abdominal pain or extremity pain. Patient does complain of low back pain. at bedside states that they're visiting from out of state for the past 3 months and will be returning back to their home state in a week. reports patient has chronic low back pain but this exacerbated over the last 24 hours starting yesterday morning. Patient was seen earlier today by her chiropractor for an adjustment and then was referred to an urgent care. Patient reportedly had a fever at the chiropractor's office and felt cold and clammy. At the urgent care patient was evaluated and reportedly had an injection of a nonsteroidal medication as she is diabetic and he did not want to give her a steroid injection. Patient went home about 1:00 PM she was drowsy so sat down in a chair and fell asleep according to the . He tried to awaken her at 4:30 and noticed that she was confusional and lethargic. He attempted to continue to awaken her over the next 2-3 hours and because she was not improving decided finally to call EMS to transport her to the emergency room. Patient and spouse denied any recent injury or fall. Patient was ambulatory this morning but this evening has difficulty elevating her lower extremities as well as she was generally extremely weak. 05/21 Patient is on BIPAP 12/5 with 45% FIO2. Afebrile. Awake. Renal function is improving with Cr: 1.87 from 2.74. 05/22 No events overnight. Patient is more awake and alert off BIPAP. Renal function is improving with Cr: 1.07 from 1.87. delayed note entry. consulted and seen at ~1500. RECONSULT NOTE: 05/30: reconsulted for worsening hypoxemia. now on 6L facemask. please refer to prior consult note for detailed medical history. In brief, 66yF lethargic female, back pain after injection, ? discitis/osteo, on abx for group B strep, worsening fever, tachycardia, tachypnea, o2 requirement to 6L facemask and RR up to 40s. patient unable to provide additional history but does appear in distress. 05/31: Patient remains encephalopathic, on high flow O2 via nasal cannula, this morning was on 60 L/m 55% FiO2. Subsequently has dropped to 30 L/m to extubate percent FiO2. Given 80 mg IV Lasix with no response. Subsequently given Bumex 2 mg IV push and started on Bumex drip at 1 mg/h to attempt to diurese in an effort to improve respiratory status however has not had any increase in urine output with Bumex drip. Creatinine came back elevated at 2.13. Suspect acute kidney injury/ATN which may be a reason for poor response to diuretics. She also spiked a temperature of 103 for which IV Ofirmev was ordered. 06/01: intubated overnight and hypotensive requiring vasopressors. now remains in shock on 2 vasopressors. bedside critical care echo demonstrates hyperdynamic LV with completely collapsed IVC. gave 2L bolus and started on mivf @ 100 cc/hr. still spiking fevers. discussed with Dr. Portillo and plan to repeat LP as well as cultures and imaging to look for source. clinically worse today. 06/02: off vasopressors. remains intubated and sedated, very encephalopathic. MRI with new punctate strokes. STEVEN being done today. also ? abscess in the pelvis of unknown origin, maybe contained diverticulitis? CT guided drainage. although some improvements in hemodynamics, no improvements in vent or encephalopathy. off pathway. 06/03: IR re-ct scan without any evidence of abdominal abscess. blood glucose still not controlled despite high dose algorithm. wbc downtrending. 06/04: wbc continues to downtrend. Cr improving as well. very hypokalemic despite aggressive replacement. blood glucose now < 200, but using high dose insulin drip and levemir. encephalopathy persists. 06/05: clinically improving. weakly following commands this morning. renal function improved. EEG negative for seizures. still too sleepy for safe extubation, but improved from yesterday. 06/06: continues to improve. still weakly following commands. failing SBT- on 20 of PSV with small tidal volumes and very tachypneic. slightly more awake, but still not awake enough for safe extubation. 06/07: Currently tolerating CPAP 15 PSV. Opens eyes tracks. Weekly follows commands on the lower extremity but delayed response. Remains off all sedation approximately 36 hours now. is at the bedside updated 06/08: Fever 100.8, WBC 15.4. But slightly more awake and focussed today. Wiggles toes to command with a delay. CXR shows moderate effusion- plan for CT guided thoracentesis today. D/W IR Dr. Quintanilla and ID Dr. Portillo 06/09: Appears to be becoming more septic. Tmax 101.8. WBC count 14.8 with 21 % bands. Zyvox and cefepime started by Dr. Portillo. Chest CT yesterday showed bilateral dense consolidation at the bases left more than right. Moderate to thick secretion on bronchoscopy and bilateral lower lobes today. Bilateral airways inflamed and friable. New fever, sepsis most likely secondary to healthcare associated pneumonia. s/p right thoracentesis with 225 ml of fluid removed, exudative by light criteria. Hemorrhagic fluid. EEG 06/08 showed moderate encephalopathy, no seizures 06/10: Continues to spike fever up to 101.6. White count stable at 14.7. Had bronchoscopy with thick secretions removed from bilateral lower lobes yesterday. BAL studies are pending. Tolerate CPAP with high pressure support. Chest x-ray slightly improved 06/11: Continues to spike fever overnight fever up to 103. Cultures remain negative except for Marco Antonio UTI. Appears more lethargic. Not able to extubate due to mental status. Will request general surgery consult for tracheostomy, and GI for PEG placement 06/12: Still spiking fever 101.3 overnight, all recent culture and BAL negative. Slightly more awake, but very delayed in following commands. General surgery Dr. Hernandez will trach in OR tomorrow. Creat slightly improved. 06/13: Remains orally intubated on mechanical ventilation. Has spontaneous eye opening and tracks. Off all sedation for 4 days. Awaiting tracheostomy 06/14: Underwent tracheostomy and PEG tube placement on 06/13 tolerated procedures well. Patient remains on mechanical ventilation via tracheostomy this morning and is awake and alert. Follows some commands per nursing staff and at bedside. 06/15: Remains on mechanical ventilation via tracheostomy. Tolerating tube feeds via PEG. Awake, tracks. 06/16 No events overnight. On Insulin drip 16u/hr. On ventilator via trach. On no sedation. T:100.8 last night. Objective Vital Signs Date Time Temp Pulse Resp B/P (MAP) Pulse Ox O2 Delivery O2 Flow Rate FiO2 06/16/17 07:47 95 40 06/16/17 06:00 101 06/16/17 04:00 98.7 21 147/66 (93) 06/15/17 03:38 Ventilator Intake and Output 06/16/17 06/16/17 06/17/17 08:00 16:00 00:00 Intake Total 1470 ml Output Total 800 ml Balance 670 ml Result Diagram: 06/15/17 1007 06/15/17 1840 Other Results Laboratory Tests Test 06/15/17 10:07 06/15/17 18:40 White Blood Count 13.6 TH/MM3 Red Blood Count 2.92 MIL/MM3 Hemoglobin 9.2 GM/DL Hematocrit 28.4 % Mean Corpuscular Volume 97.3 FL Mean Corpuscular Hemoglobin 31.4 PG Mean Corpuscular Hemoglobin Concent 32.3 % Red Cell Distribution Width 18.4 % Platelet Count 133 TH/MM3 Mean Platelet Volume 11.7 FL CBC Comment AUTO DIFF Differential Total Cells Counted 100 Neutrophils % (Manual) 52 % Band Neutrophils % 15 % Lymphocytes % 17 % Monocytes % 1 % Eosinophils % 7 % Neutrophils # (Manual) 10.2 TH/MM3 Metamyelocytes 6 % Myelocytes 1 % Promyelocytes 1 % Nucleated Red Blood Cells 7 /100 WBC Differential Comment FINAL DIFF MANUAL Platelet Estimate LOW Platelet Morphology Comment ENLARGED Polychromasia 3.1 % Blood Urea Nitrogen 12 MG/DL Creatinine 0.72 MG/DL Random Glucose 212 MG/DL Total Protein 6.0 GM/DL Albumin 1.3 GM/DL Calcium Level 8.4 MG/DL Alkaline Phosphatase 449 U/L Aspartate Amino Transf (AST/SGOT) 63 U/L Alanine Aminotransferase (ALT/SGPT) 26 U/L Total Bilirubin 0.7 MG/DL Sodium Level 138 MEQ/L Potassium Level 3.2 MEQ/L 4.0 MEQ/L Chloride Level 97 MEQ/L Carbon Dioxide Level 32.4 MEQ/L Anion Gap 9 MEQ/L Estimat Glomerular Filtration Rate 81 ML/MIN Imaging Last Impressions Chest X-Ray 06/13/17 0600 Signed Impressions: Service Date/Time: Tuesday, June 13, 2017 05:12 - CONCLUSION: ET tube, nasogastric and right IJ central line in excellent position. Heart remains enlarged Adiel Elder MD Upper Extremity Ultrasound 06/08/17 Signed Impressions: Service Date/Time: May 10:45 - CONCLUSION: Superficial venous thrombosis of the bilateral upper extremities involving the cephalic veins. Deep veins are patent. Santana Eric MD Thoracentesis 06/08/17 Signed Impressions: Service Date/Time: May 14:49 - CONCLUSION: Uncomplicated CT-guided right thoracentesis with removal of 225 cc of fluid. Please note that most of the chest x-ray opacity actually represents right lower lobe airspace consolidation. Santana Shirley MD Lower Extremity Ultrasound 06/08/17 Signed Impressions: Service Date/Time: May 11:01 - CONCLUSION: Superficial venous thrombosis of the left lower extremity (left greater saphenous vein). No DVT of either lower chroni. Santana Eric MD Carotid Artery Ultrasound 06/08/17 Signed Impressions: Service Date/Time: May 10:29 - CONCLUSION: Minimal atherosclerotic plaque of the left carotid bifurcation. Otherwise normal. No significant narrowing. Santana Eric MD Lumbar Spine MRI 06/03/17 Signed Impressions: Service Date/Time: Saturday, June 03, 2017 15:42 - CONCLUSION: The MRI findings after contrast administration are not convincing for presence of active infection within the L3/L4 disc, adjacent vertebral bodies or epidural space/adjacent soft tissues. Santana Eric MD Pelvis CT 06/02/17 Signed Impressions: Service Date/Time: Friday, June 02, 2017 17:29 - CONCLUSION: No evidence of intra-abdominal abscess collection. Nikita Damon MD Abdomen X-Ray 06/02/17 Signed Impressions: Service Date/Time: Friday, June 02, 2017 15:20 - CONCLUSION: OG tube in the stomach. Mike Davis MD FACR Chest CT 06/01/17 Signed Impressions: Service Date/Time: May 18:49 - CONCLUSION: 1. Dense consolidation in both posterior lower lobes right greater than left with air bronchograms. This could represent pneumonia. 2. Small bilateral pleural effusions. 3. Mild cardiomegaly. Austin Orellana MD Brain MRI 06/01/17 Signed Impressions: Service Date/Time: May 19:15 - CONCLUSION: 1. Multiple new small scattered punctate areas of restricted diffusion consistent with small areas of infarction. This could be secondary to emboli. 2. No acute hemorrhage or mass effect. 3. Acute sinusitis in the ethmoidal air cells and sphenoid sinus with air fluid levels. Austin Orellana MD Abdomen/Pelvis CT 06/01/17 Signed Impressions: Service Date/Time: May 18:49 - CONCLUSION: 1. Suboptimal opacification of the bowel with the distal small bowel unopacified. There is a questionable abnormal gas collection in the anterior lower pelvis. An abscess is not excluded. A repeat study is recommended after additional oral contrast is given. 2. Consolidation in both posterior lung bases with small pleural effusions. Austin Orellana MD Renal Ultrasound 05/31/17 Signed Impressions: Service Date/Time: Wednesday, May 31, 2017 20:47 - CONCLUSION: 1. Suboptimal exam with visualization. 2. No evidence of hydronephrosis. 3. Cyst extending off right kidney. Austin Orellana MD Tumor Localization 05/26/17 Signed Impressions: Service Date/Time: Friday, May 26, 2017 13:36 - CONCLUSION: No abnormal uptake identified to suggest infection. Nikita Damon MD Lumbar Puncture Fluoroscopy 05/25/17 Signed Impressions: Service Date/Time: April 17:41 - CONCLUSION: Uncomplicated fluoroscopically guided lumbar puncture with pressures as above. Shoaib Davis MD Liver Ultrasound 05/21/17 0000 Signed Impressions: Service Date/Time: Sunday, May 21, 2017 10:32 - CONCLUSION: 1. Hepatic steatosis. 2. Gallstones 3. Limited evaluation of the right kidney. Santana Lamar MD Head CT [id number] Signed Impressions: Service Date/Time: Saturday, May 20, 2017 19:55 - CONCLUSION: 1. No acute findings. Retention cyst right maxillary sinus. Jakob Scruggs MD Objective Remarks GENERAL: Patient is 66 yo lying in bed, off all sedation, SKIN: Warm and dry. HEAD: Normocephalic. EYES: No scleral icterus. No injection or drainage. NECK: Tracheostomy in place. LIJ central line in place CARDIOVASCULAR: S1-S2 regular, no gallop or murmur RESPIRATORY: On mechanical ventilation via tracheostomy, PS+14, PEEP+8, fio2 40% , coarse breath sounds bilaterally, no wheezing GASTROINTESTINAL: Abdomen morbidly obese, soft, non-tender, nondistended. MSK: No cyanosis, or edema. NEURO: Opens eyes to command. Weakly follows commands in lower extremity, delayed response. Localizes with UE Procedures None Date of Insertion: May 25, 2017 A/P Assessment and Plan Plan: Neuro: Metabolic Encephalopathy- slight improvement. Acute CVA, multifocal areas of ischemia Possible [employer] Infection Discitis - MRI brain06/01 diffuse areas of small infarcts, possibly embolic - Off all sedating medications. Remains encephalopathic - Received Versed fentanyl and rocuronium for bronchoscopy 06/09/17, off all sedation - Continue amantadine and, modafinil for wakefulness. - frequent neuro checks, continue aspirin, Keppra - Prev TSH borderline high, T4 low. Continue Synthroid 25 mcg IV daily started 06/08/17. - Ammonia normal. B12 normal - EEG 06/08 moderate encephalopathy, carotid ultrasound no significant stenosis - Consult neuropsychology for encephalopathy. Resp: Acute hypoxic and hypercarbic respiratory failure - persistent. Right pleural effusion Bibasilar infiltrates/HCAP -s/p Bronchoscopy showed inflamed airways, thick secretion bilateral lower lobes. - Continue with vent support keep sat >92% -Bronchodilators, pulm toilet, trach care - Underwent tracheostomy 06/13. 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 - Right thoracentesis with fluid studies-exudative effusion, cultures neg to date Renal: Acute kidney injury- resolved -Monitor renal function, electrolytes replacement per protocol. on Lasix 20mg IV BID FEN/GI: Elevated LFT's Morbid obesity dAcute protein calorie malnutrition- moderate Cholelithiasis - GI consulted -patient underwent PEG tube placement on 06/13 -Continue with tube feeds- Glucerna 1.5 @60ml/hr. -Monitor LFT's ( trending down) -05/21 US abdomen: Hepatic steatosis. Gallstones ID: New Fever ? drug related Possible HCAP marco antonio UTI Septic Shock - resolved Discitis Strep bacteremia (recent blood cultures negative) - abx per ID Dr. Portillo. On ceftriaxone, add fluconazole - Bronch with BAL 06/09/17. Follow up on studies - cultures NGTD except initial 4/4 bottles with group B strp. Repeat blood cultures today - There is clinical concern for endocarditis (4/4 bottle strep, brain emboli delfino though STEVEN negative) Endocrine: Hyperglycemia Relative Adrenal Insufficiency Possible hyperthyroidism - steroid tapered, now DCd - severe hyperglycemia despite high dose insulin drip - continue insulin drip Algorithm #4. - Levemir 80 units SQ q12h - On levothyroxine 25 g daily Prophylaxis: - pepcid - SCDs, add Heparin SQ Lines: Right IJ CVP placed 06/09 Level 3. Vero Alvarenga MD Jun 16, 2017 08:53
--- NOTE | 2017-06-16 09:32 | RADRPT ---
EXAM DATE/TIME: 06/16/2017 09:06 [facility] COMPARISON: CHEST SINGLE AP, June 13, 2017, 14:21. INDICATIONS : Respiratory disease. MEDICAL HISTORY : Hypertension. Dyspnea. Diabetes. Chronic lower back pain. SURGICAL HISTORY : section. ENCOUNTER: Subsequent ACUITY: 2 months PAIN SCORE: 0/10 LOCATION: chest FINDINGS: A single portable frontal view of the chest shows cardiomegaly. Bilateral small pleural effusions and bibasilar infiltrates. Appearance is stable. Tracheostomy tube and right-sided central line noted. CONCLUSION: Unchanged cardiomegaly with bilateral pleural effusions and bibasilar infiltrates. Ang Campbell Jr., MD on June 16, 2017 at 9:29 Board Certified Radiologist. This report was verified electronically.
[2017-06-16] MEDS: FUROSEMIDE 20 MG/2 ML VIAL IV PUSH SCH ×2 (10:03→22:24)
[2017-06-16] MEDS: FLUCONAZOLE 100 MG TAB PO SCH (10:03)
[2017-06-16 10:37] LABS: HEMATOCRIT 31.4 % (35.0-46.0); MEAN CELL VOLUME 99.3 FL (80.0-100.0); MEAN CORPUSCULAR HGB CONC 32.2 % (32.0-36.0); PLATELET COUNT 153 TH/MM3 (150-450); RED BLOOD COUNT 3.16 MIL/MM3 (4.00-5.30); RED CELL DISTRIBUTION WIDTH 19.8 % (11.6-17.2); WHITE BLOOD COUNT 14.4 TH/MM3 (4.0-11.0)
[2017-06-16 10:45] LABS: HEMO FLAGS AUTO DIFF
[2017-06-16 10:46] LABS: ALKALINE PHOSPHATASE 497 U/L (45-117); TOTAL BILIRUBIN ADULT 0.9 MG/DL (0.2-1.0)
[2017-06-16 10:54] LABS: ANION GAP 8 MEQ/L (5-15); BICARBONATE 30.7 MEQ/L (21.0-32.0); BLOOD UREA NITROGEN 11 MG/DL (7-18); CHLORIDE 98 MEQ/L (98-107); GLOMERULAR FILTRATION RATE 71 ML/MIN (>89); MAGNESIUM 1.7 MG/DL (1.5-2.5); POTASSIUM 4.1 MEQ/L (3.5-5.1); SODIUM (NA) 137 MEQ/L (136-145)
[2017-06-16 11:09] LABS: ALT (GPT) 25 U/L (10-53)
[2017-06-16 11:12] LABS: AST (GOT) 73 U/L (15-37)
--- NOTE | 2017-06-16 11:21 | HHI.IDPN ---
Subjective Subjective Remarks is a 66-year-old female presents confused and lethargic. Patient reportedly was recently seen today at an urgent care and received an injection for low back pain. Patient here denies headaches, chest pain or shortness of breath, abdominal pain or extremity pain. Patient does complain of low back pain. at bedside states that they're visiting from out of state for the past 3 months and will be returning back to their home state in a week. reports patient has chronic low back pain but this exacerbated over the last 24 hours starting yesterday morning. Patient was seen earlier today by her chiropractor for an adjustment and then was referred to an urgent care. Patient reportedly had a fever at the chiropractor's office and felt cold and clammy. At the urgent care patient was evaluated and reportedly had an injection of a nonsteroidal medication as she is diabetic and he did not want to give her a steroid injection. Patient went home about 1:00 PM she was drowsy so sat down in a chair and fell asleep according to the . He tried to awaken her at 4:30 and noticed that she was confusional and lethargic. He attempted to continue to awaken her over the next 2-3 hours and because she was not improving decided finally to call EMS to transport her to the emergency room. Patient and spouse denied any recent injury or fall. Patient was ambulatory this morning but this evening has difficulty elevating her lower extremities as well as she was generally extremely weak. ID following for Strep bacteremia, probable endocarditis, Septic emboli cerebral , discitis based on 1st imaging. bilateral LE cellulitis. Overnight events reviewed. Opens eyes spontaneously. Tmax 101.3 F Not on pressors. No rash No diarrhea. Plan for trach and PEG. Antibiotics CFTX Cefepime IV Zyvox Lines Line sites with no e.o infection Past Medical History Diabetes Dyslipidemia Hypertension Chronic back pain sees a chiropracter. Chronic lower extremity swelling. Never had an ECHO before per pt and spouse. ? Sleep apnea. Allergies: Coded Allergies: No Known Allergies (Unverified , 05/20/17) Objective . Vital Signs Date Time Temp Pulse Resp B/P (MAP) Pulse Ox O2 Delivery O2 Flow Rate FiO2 06/16/17 11:15 97 40 06/16/17 10:00 97 06/16/17 08:00 40 06/16/17 08:00 100.3 104 30 168/70 (102) 94 06/16/17 08:00 104 06/16/17 07:47 95 40 06/16/17 06:00 101 06/16/17 04:16 98 40 06/16/17 04:00 97 06/16/17 04:00 40 06/16/17 04:00 98.7 97 21 147/66 (93) 98 06/16/17 02:00 99 06/16/17 01:02 96 40 06/16/17 00:00 98.7 94 22 156/65 (95) 94 06/16/17 00:00 40 06/16/17 00:00 94 06/15/17 22:40 95 40 06/15/17 22:00 87 06/15/17 20:00 40 06/15/17 20:00 87 06/15/17 20:00 100.8 87 16 136/73 (94) 99 06/15/17 19:51 98 40 06/15/17 18:00 86 06/15/17 16:00 89 06/15/17 16:00 100.4 89 22 126/58 (80) 94 06/15/17 16:00 40 06/15/17 15:04 96 40 06/15/17 14:00 85 06/15/17 13:57 89 40 06/15/17 12:00 100.0 83 15 118/54 (75) 95 06/15/17 12:00 40 06/15/17 12:00 40 06/15/17 12:00 85 . Laboratory Tests Test 06/15/17 10:07 06/16/17 09:30 White Blood Count 13.6 TH/MM3 14.4 TH/MM3 Red Blood Count 2.92 MIL/MM3 3.16 MIL/MM3 Hemoglobin 9.2 GM/DL 10.1 GM/DL Hematocrit 28.4 % 31.4 % Mean Corpuscular Volume 97.3 FL 99.3 FL Mean Corpuscular Hemoglobin 31.4 PG 32.0 PG Mean Corpuscular Hemoglobin Concent 32.3 % 32.2 % Red Cell Distribution Width 18.4 % 19.8 % Platelet Count 133 TH/MM3 153 TH/MM3 Mean Platelet Volume 11.7 FL 11.7 FL CBC Comment AUTO DIFF AUTO DIFF Differential Total Cells Counted 100 Neutrophils % (Manual) 52 % Band Neutrophils % 15 % Lymphocytes % 17 % Monocytes % 1 % Eosinophils % 7 % Neutrophils # (Manual) 10.2 TH/MM3 Metamyelocytes 6 % Myelocytes 1 % Promyelocytes 1 % Nucleated Red Blood Cells 7 /100 WBC Differential Comment FINAL DIFF MANUAL Platelet Estimate LOW Platelet Morphology Comment ENLARGED Polychromasia 3.1 % Laboratory Tests Test 06/15/17 10:07 06/15/17 18:40 06/16/17 09:30 Blood Urea Nitrogen 12 MG/DL 11 MG/DL Creatinine 0.72 MG/DL 0.81 MG/DL Random Glucose 212 MG/DL 272 MG/DL Total Protein 6.0 GM/DL 6.3 GM/DL Albumin 1.3 GM/DL 1.4 GM/DL Calcium Level 8.4 MG/DL 8.5 MG/DL Alkaline Phosphatase 449 U/L 497 U/L Aspartate Amino Transf (AST/SGOT) 63 U/L 73 U/L Alanine Aminotransferase (ALT/SGPT) 26 U/L 25 U/L Total Bilirubin 0.7 MG/DL 0.9 MG/DL Sodium Level 138 MEQ/L 137 MEQ/L Potassium Level 3.2 MEQ/L 4.0 MEQ/L 4.1 MEQ/L Chloride Level 97 MEQ/L 98 MEQ/L Carbon Dioxide Level 32.4 MEQ/L 30.7 MEQ/L Anion Gap 9 MEQ/L 8 MEQ/L Estimat Glomerular Filtration Rate 81 ML/MIN 71 ML/MIN Phosphorus Level 1.3 MG/DL Magnesium Level 1.7 MG/DL Imaging Last Impressions Lumbar Spine MRI 06/03/17 0000 Signed Impressions: Service Date/Time: Saturday, June 03, 2017 15:42 - CONCLUSION: The MRI findings after contrast administration are not convincing for presence of active infection within the L3/L4 disc, adjacent vertebral bodies or epidural space/adjacent soft tissues. Santana Eric MD Pelvis CT 06/02/17 0000 Signed Impressions: Service Date/Time: Friday, June 02, 2017 17:29 - CONCLUSION: No evidence of intra-abdominal abscess collection. Nikita Damon MD Chest X-Ray 06/02/17 0000 Signed Impressions: Service Date/Time: Friday, June 02, 2017 15:14 - CONCLUSION: 1. Cardiomegaly. 2. Perihilar infiltrates consistent with mild to moderate pulmonary vascular congestion versus pneumonia. 3. Small right pleural effusion. 4. Multiple tubes and lines are stable. Nikita Damon MD Abdomen X-Ray 06/02/17 0000 Signed Impressions: Service Date/Time: Friday, June 02, 2017 15:20 - CONCLUSION: OG tube in the stomach. Mike Davis MD FACR Chest CT 06/01/17 0000 Signed Impressions: Service Date/Time: May 18:49 - CONCLUSION: 1. Dense consolidation in both posterior lower lobes right greater than left with air bronchograms. This could represent pneumonia. 2. Small bilateral pleural effusions. 3. Mild cardiomegaly. Austin Orellana MD Brain MRI 06/01/17 0000 Signed Impressions: Service Date/Time: May 19:15 - CONCLUSION: 1. Multiple new small scattered punctate areas of restricted diffusion consistent with small areas of infarction. This could be secondary to emboli. 2. No acute hemorrhage or mass effect. 3. Acute sinusitis in the ethmoidal air cells and sphenoid sinus with air fluid levels. Austin Orellana MD Abdomen/Pelvis CT 06/01/17 0000 Signed Impressions: Service Date/Time: May 18:49 - CONCLUSION: 1. Suboptimal opacification of the bowel with the distal small bowel unopacified. There is a questionable abnormal gas collection in the anterior lower pelvis. An abscess is not excluded. A repeat study is recommended after additional oral contrast is given. 2. Consolidation in both posterior lung bases with small pleural effusions. Austin Orellana MD Renal Ultrasound 05/31/17 0000 Signed Impressions: Service Date/Time: Wednesday, May 31, 2017 20:47 - CONCLUSION: 1. Suboptimal exam with visualization. 2. No evidence of hydronephrosis. 3. Cyst extending off right kidney. Austin Orellana MD Lower Extremity Ultrasound 05/29/17 0000 Signed Impressions: Service Date/Time: Monday, May 29, 2017 13:10 - CONCLUSION: 1. No evidence of deep venous thrombosis. Monty Gross MD Tumor Localization 05/26/17 0000 Signed Impressions: Service Date/Time: Friday, May 26, 2017 13:36 - CONCLUSION: No abnormal uptake identified to suggest infection. Nikita Damon MD Liver Ultrasound 05/21/17 0000 Signed Impressions: Service Date/Time: Sunday, May 21, 2017 10:32 - CONCLUSION: 1. Hepatic steatosis. 2. Gallstones 3. Limited evaluation of the right kidney. Santana Lamar MD Head CT [id number] Signed Impressions: Service Date/Time: Saturday, May 20, 2017 19:55 - CONCLUSION: 1. No acute findings. Retention cyst right maxillary sinus. Jakob Scruggs MD Physical Exam GENERAL: Obese patient. sedated int'd on mech vent SKIN: No rashes. Ecchymosis noted. No Janeway lesion no splinter hemorrhages. HEAD: Atraumatic. Normocephalic. EYES: Pupils equal round and reactive. Extraocular motions intact. No scleral icterus. No injection or drainage. ENT: Nose without bleeding, purulent drainage or septal hematoma. Throat without erythema, tonsillar hypertrophy or exudate. Uvula midline. Airway patent. NECK: Large neck, intubated. Supple CARDIOVASCULAR: Regular rate and rhythm without murmurs. well perused periphery with good refill RESPIRATORY: Breath sounds equal bilaterally.Clear to auscultation anteriorly GASTROINTESTINAL: Abdomen soft, non-tender, nondistended. Obese. No hepatosplenomegaly Incontinent of dark liquid stool chiu in place. MUSCULOSKELETAL: Extremities without clubbing, cyanosis. Pedal edema diminished , skin over legs now wrinkled. NEUROLOGICAL: Psych unable to assess IV line sites with no e/o infection. Assessment & Plan Remarks Sepsis HCAP/plus aspiration pneumonia. 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 Strep Grp B bacteremia sources: ? GI, skin as source. STEVEN neg, but done 2 weeks after abx were started ? embolic strokes secondary to probable endocarditis. Candiduria: cath related infection. Bilateral R> L LE cellulitis: improved. Acute renal failure UO improving. GFR > 40 Acute resp failure: pulm edema,aspiration PNA, sleep apnea. MRI of T spine negative Abnormal LFTs: sepsis related, ? rhabdo elevated CK. HTN DM2 uncontrolled. Obesity BMI 49.7 kg/m2 Diarrhea Cdiff negative. Recs: Continue Ceftriaxone IV q12 for possible meningitis/epidural abscess,covers endocarditis if emboli are possibly septic. Low grade fevers ? marco antonio ? drug fever. Hankins cultured with no new organisms. Restart Fluconazole as the Urine grew marco antonio again and pt has low grade fevers. Chiu changed Plan for trach and PEG. Follow cultures. Follow clinically. d/w and RN Nan Portillo MD Jun 16, 2017 11:21
[2017-06-16 11:26] LABS: BANDS 8 % (0-6); CORRECTED NUCLEATED RBC 2 /100 WBC (0-0); EOSINOPHILS 2 % (0-4); METAMYELOCYTES 2 % (0-1); MYELOCYTES 6 % (0-0); NEUTROPHIL # MANUAL DIFF 11.5 TH/MM3 (1.8-7.7); POLYS (SEG NEUTROPHILS) 64 % (16-70); WBC DIFF SAMPLE 100
[2017-06-16 11:27] LABS: PLATELET ESTIMATE SMEAR NORMAL (NORMAL); PLATELET MORPHOLOGY NORMAL (NORMAL); POLYCHROMASIA 2.6 % (0.0-1.9); SCAN/DIFF FINAL DIFF MANUAL
--- NOTE | 2017-06-16 11:52 | HHI.PR ---
Subjective Remarks 66 YOObese WF with Hypercapnoea, Cellulitis, Bactremia Intubated Off sedation Follows simple commands No Fever at had trach planning to move her to [place] Objective Vital Signs Vital Signs Date Time Temp Pulse Resp B/P (MAP) Pulse Ox O2 Delivery O2 Flow Rate FiO2 06/16/17 11:15 97 40 06/16/17 10:00 97 06/16/17 08:00 40 06/16/17 08:00 100.3 104 30 168/70 (102) 94 06/16/17 08:00 104 06/16/17 07:47 95 40 06/16/17 06:00 101 06/16/17 04:16 98 40 06/16/17 04:00 97 06/16/17 04:00 40 06/16/17 04:00 98.7 97 21 147/66 (93) 98 06/16/17 02:00 99 06/16/17 01:02 96 40 06/16/17 00:00 98.7 94 22 156/65 (95) 94 06/16/17 00:00 40 06/16/17 00:00 94 06/15/17 22:40 95 40 06/15/17 22:00 87 06/15/17 20:00 40 06/15/17 20:00 87 06/15/17 20:00 100.8 87 16 136/73 (94) 99 06/15/17 19:51 98 40 06/15/17 18:00 86 06/15/17 16:00 89 06/15/17 16:00 100.4 89 22 126/58 (80) 94 06/15/17 16:00 40 06/15/17 15:04 96 40 06/15/17 14:00 85 06/15/17 13:57 89 40 06/15/17 12:00 100.0 83 15 118/54 (75) 95 06/15/17 12:00 40 06/15/17 12:00 40 06/15/17 12:00 85 I/O 06/15/17 06/15/17 06/15/17 06/16/17 06/16/17 06/16/17 07:00 15:00 23:00 07:00 15:00 23:00 Intake Total 1362 ml 207.5 ml 1500.8 ml 1470 ml Output Total 450 ml 400 ml 800 ml Balance 912 ml 207.5 ml 1100.8 ml 670 ml IV Total 207.5 ml 314.8 ml 200 ml Tube Feeding 762 ml 586 ml 670 ml Other 600 ml 600 ml 600 ml Output Urine Total 450 ml 350 ml 650 ml Stool Total 0 ml 50 ml 150 ml Result Diagram: 06/16/1792906/16/17929 Objective Remarks GENERAL: Morbidly obese WF, mild sob SKIN: Warm and dry. HEAD: Normocephalic. EYES: No scleral icterus. No injection or drainage. NECK: Supple, trachea midline. No JVD or lymphadenopathy. CARDIOVASCULAR: Regular rate and rhythm without murmurs, gallops, or rubs. RESPIRATORY: Breath sounds equal bilaterally. No accessory muscle use. GASTROINTESTINAL: Abdomen soft, non-tender, nondistended. MUSCULOSKELETAL: No cyanosis, or edema. has swelling and redness of legs BACK: Nontender without obvious deformity. No CVA tenderness. A/P Assessment and Plan Hypercapnoic Resp Insuff CHE or Obesity Hypoventilation synd Cellulitis legs Bactremia back pain Sepsis Encephalopathy PLAN: Vent Support Aerosol nebs Wean 02 to keep sat 88-92% Abx per ID Daily CPAP trial. DW at BS Dima Bang MD Jun 16, 2017 11:52
[2017-06-16] MEDS: SODIUM PHOSPHATE INJ 30 MMOL in SODIUM CHLOR 0.9% 250 ML INJ 240 ML IV PRN (12:24)
[2017-06-16 17:01] LABS: BLOOD GAS BASE EXCESS 5.7 mmol/L (-2-2); BLOOD GAS HCO3 30 mmol/L (22-26); BLOOD GAS O2 HGB SATURATION 92 % (90-100); BLOOD GAS OXYGEN CONTENT 14.6 Vol % (12.0-20.0); BLOOD GAS PCO2 45 mmHg (38-42); BLOOD GAS PO2 74 mmHG (61-120); BLOOD GAS TOTAL HGB 11.2 G/DL (12.0-16.0); TEMP CORR TO 98.6
[2017-06-16 17:03] LABS: CRITICAL VALUE NO; OXYGEN DEVICE VENTILATOR
[2017-06-16 17:04] LABS: DRAW SITE LT RADIAL; FIO2 40 %; NUMBER OF ARTERIAL PUNCTURES 1; STAT NO; ULNAR PULSE PRESENT; VENT SETTINGS PRVC16/500/0.85/+8
--- NOTE | 2017-06-16 19:29 | HHI.PR ---
Review/Management Diagnosis - Encephalopathy. Possible etiological causes are seizures/ infectious/ metabolic - Multiple ischemic strokes, b/l hemispheres - Critical Illness Polyneuropathy - Respiratory failure - Bacteremia, group B strep,sepsis/resolved - JAMES, resolved - Diabetes mellitus. Plan - Neuro checks q. one hourly. - Keppra 750mg Q12h - Aspirin 81mg - Seizure precautions. - Discontinued Phenytoin - Hold narcotic medications. - Continue supportive medical therapy. - GI prophylaxis. - DVT prophylaxis, subcutaneous heparin - Discussed case with , and RN Diagnosis/Plan: Subjective Subjective Comments No acute events reported S/P trach and PEG at bed side No reported seizure activity Active Medications Current Medications Medications (Trade) Dose Ordered Sig/Erasmo Route Start Time Stop Time Status Last Admin (Heparin Inj) 5,000 units Q8H SQ 05/20/17 22:00 Future hold 06/12/17 22:02 Miscellaneous Information 1 Q361D XX 05/20/17 22:30 (Chlorhexidine 2% Cloth) Taper DAILY@04 TOP 05/21/17 04:00 05/17/18 03:59 06/16/17 04:00 (Chlorhexidine 2% Cloth) 3 pack UNSCH PRN TOP 05/20/17 22:30 (Tylenol) 650 mg Q6H PRN PO 05/21/17 01:30 06/14/17 22:57 (Duoneb Neb) 1 ampule Q2HR NEB PRN NEB 05/21/17 05:45 06/16/17 15:34 (Glucagon Inj) 1 mg UNSCH PRN OTHER 05/22/17 07:30 (NS Flush) 2 ml UNSCH PRN IV FLUSH 05/24/17 12:15 06/04/17 20:38 (NS Flush) 2 ml BID IV FLUSH 05/24/17 21:00 06/16/17 08:47 (Narcan Inj) 0.4 mg UNSCH PRN IV PUSH 05/24/17 12:15 (May-Colace) 1 tab BID PO 05/24/17 21:00 06/16/17 08:47 (Milk Of Magnesia Liq) 30 ml Q12H PRN PO 05/24/17 12:15 05/24/17 13:45 (Senokot) 17.2 mg Q12H PRN PO 05/24/17 12:15 (Dulcolax Supp) 10 mg DAILY PRN RECTAL 05/24/17 12:15 (Lactulose Liq) 30 ml DAILY PRN PO 05/24/17 12:15 Ceftriaxone Sodium 2000 mg/ Sodium Chloride 100 ml @ 200 mls/hr Q12H IV 05/25/17 17:00 06/16/17 16:02 (Mycostatin Powder) 1 applic Q12HR TOPICAL 05/30/17 10:00 06/16/17 08:48 (Tylenol Supp) 650 mg Q6H PRN RECTAL 05/30/17 13:15 05/30/17 14:06 (Ofirmev 1000 Mg/ 100 ml Inj) 1,000 mg Q6H PRN IV 05/31/17 16:30 06/15/17 16:35 Insulin Human Regular 100 units/ Sodium Chloride 100 ml @ 3 mls/hr TITRATE PRN IV 06/01/17 11:45 06/16/17 18:58 (D50w (Vial) Inj) 50 ml UNSCH PRN IV PUSH 06/01/17 11:45 Levetriacetam 750 mg/Sodium Chloride 107.5 ml @ 430 mls/hr Q12HR IV 06/01/17 21:00 06/16/17 08:46 (Mag-Ox) 800 mg UNSCH PRN PO 06/03/17 11:00 Magnesium Sulfate 4 gm/Sodium Chloride 100 ml @ 50 mls/hr UNSCH PRN IV 06/03/17 11:00 Magnesium Sulfate 2 gm/Sodium Chloride 100 ml @ 50 mls/hr UNSCH PRN IV 06/03/17 11:00 06/08/17 17:47 Potassium Chloride 100 ml @ 50 mls/hr Q2H PRN IV 06/03/17 11:00 06/08/17 13:15 Potassium Chloride 100 ml @ 50 mls/hr Q2H PRN IV 06/03/17 11:00 Potassium Chloride 100 ml @ 50 mls/hr Q2H PRN IV 06/03/17 11:00 06/15/17 14:26 Potassium Chloride 100 ml @ 25 mls/hr UNSCH PRN IV 06/03/17 11:00 06/10/17 06:46 (K-Phos) 2,000 mg Q4H PRN PO 06/03/17 11:00 (K-Phos) 2,000 mg UNSCH PRN PO/TUBE 06/03/17 11:00 Potassium Phosphate 30 mmol/ Sodium Chloride 260 ml @ 42 mls/hr UNSCH PRN IV 06/03/17 11:00 06/07/17 11:08 Sodium Phosphate 30 mmol/Sodium Chloride 250 ml @ 42 mls/hr UNSCH PRN IV 06/03/17 11:00 06/16/17 12:24 (Aspirin) 325 mg DAILY PO 06/03/17 11:00 06/16/17 08:47 (Symmetrel Liq) 200 mg BID@07,12 PO 06/03/17 12:00 06/16/17 12:08 (Pepcid Inj) 20 mg Q12HR IV PUSH 06/05/17 21:00 06/16/17 08:47 (Provigil) 200 mg DAILY PO 06/06/17 09:00 06/16/17 08:47 (Trandate Inj) 10 mg Q4H PRN IV PUSH 06/05/17 23:00 06/06/17 16:51 (Apresoline Inj) 20 mg Q4H PRN IV PUSH 06/05/17 23:00 (Coreg) 6.25 mg Q12HR PO 06/06/17 11:30 06/16/17 08:47 (Levemir Inj) 80 units Q12HR SQ 06/07/17 21:00 06/16/17 08:47 (Synthroid Inj) 25 mcg DAILY@06 IV PUSH 06/08/17 10:00 06/16/17 06:25 (Santyl Oint) 1 applic DAILY TOPICAL 06/10/17 09:00 06/14/17 08:53 (Lasix Inj) 20 mg Q12H IV PUSH 06/12/17 23:00 06/16/17 10:03 (Diflucan) 100 mg DAILY PO 06/16/17 09:00 06/16/17 10:03 Allergies Allergies Coded Allergies No Known Allergies ([id number]/21/17) Review of Systems All other ROS: ROS reviewed as documented in chart Exam I&O / VS 06/16/17 06/16/17 06/17/17 15:00 23:00 07:00 Intake Total 207.5 ml 1249 ml Output Total 875 ml Balance 207.5 ml 374 ml IV Total 207.5 ml 350 ml Tube Feeding 659 ml Other 240 ml Output Urine Total 425 ml Stool Total 450 ml Vital Signs Date Time Temp Pulse Resp B/P (MAP) Pulse Ox O2 Delivery O2 Flow Rate FiO2 06/16/17 18:00 91 06/16/17 16:30 40 06/16/17 16:00 91 06/16/17 16:00 100.4 91 23 142/65 (90) 97 06/16/17 16:00 40 06/16/17 15:34 97 40 06/16/17 14:00 90 06/16/17 12:00 90 06/16/17 12:00 99.4 91 19 150/64 (92) 97 06/16/17 12:00 40 06/16/17 11:15 97 40 06/16/17 10:00 97 06/16/17 08:00 40 06/16/17 08:00 100.3 104 30 168/70 (102) 94 06/16/17 08:00 104 06/16/17 07:56 40 06/16/17 07:47 95 40 06/16/17 06:00 101 06/16/17 04:16 98 40 06/16/17 04:00 97 06/16/17 04:00 40 06/16/17 04:00 98.7 97 21 147/66 (93) 98 06/16/17 02:00 99 06/16/17 01:02 96 40 06/16/17 00:00 98.7 94 22 156/65 (95) 94 06/16/17 00:00 40 06/16/17 00:00 94 06/15/17 22:40 95 40 06/15/17 22:00 87 06/15/17 20:00 40 06/15/17 20:00 87 06/15/17 20:00 100.8 87 16 136/73 (94) 99 06/15/17 19:51 98 40 Exam Comments GENERAL: Morbidly obese, lethargic. HEENT: Atraumatic, normocephalic. NECK: Supple. No signs of meningeal irritation. CARDIOVASCULAR: Regular rate and rhythm. RESPIRATORY: Clear to auscultation. No wheezes. GASTROINTESTINAL: Soft, nontender. MUSCULOSKELETAL: No cyanosis, edema or clubbing. NEUROLOGIC EXAMINATION: Trach intubated, off sedation, Pupils 3 mm bilaterally equally reacting to light. No facial asymmetry. Reflexes 1+ bilateral and symmetrical. B/l Babinski reflex. Awake, opens eyes to commands, tracks objects , more attentive to when called by her name , moves extremities weakly, withdraws b/l LE to stimulation, sluggish reflexes throughout. Objective Radiology Results Last 72 hours Impressions Chest X-Ray 06/16/17 0000 Signed Impressions: Service Date/Time: Friday, June 16, 2017 09:06 - CONCLUSION: Unchanged cardiomegaly with bilateral pleural effusions and bibasilar infiltrates. Ang Campbell Jr., MD [facility] Laboratory Tests Test 06/16/17 09:30 06/16/17 16:55 White Blood Count 14.4 Red Blood Count 3.16 Hemoglobin 10.1 Hematocrit 31.4 Mean Corpuscular Volume 99.3 Mean Corpuscular Hemoglobin 32.0 Mean Corpuscular Hemoglobin Concent 32.2 Red Cell Distribution Width 19.8 Platelet Count 153 Mean Platelet Volume 11.7 CBC Comment AUTO DIFF Differential Total Cells Counted 100 Neutrophils % (Manual) 64 Band Neutrophils % 8 Lymphocytes % 11 Monocytes % 7 Eosinophils % 2 Neutrophils # (Manual) 11.5 Metamyelocytes 2 Myelocytes 6 Nucleated Red Blood Cells 2 Differential Comment FINAL DIFF MANUAL Platelet Estimate NORMAL Platelet Morphology Comment NORMAL Polychromasia 2.6 Blood Urea Nitrogen 11 Creatinine 0.81 Random Glucose 272 Total Protein 6.3 Albumin 1.4 Calcium Level 8.5 Phosphorus Level 1.3 Magnesium Level 1.7 Alkaline Phosphatase 497 Aspartate Amino Transf (AST/SGOT) 73 Alanine Aminotransferase (ALT/SGPT) 25 Total Bilirubin 0.9 Sodium Level 137 Potassium Level 4.1 Chloride Level 98 Carbon Dioxide Level 30.7 Anion Gap 8 Estimat Glomerular Filtration Rate 71 Blood Gas Puncture Site LT RADIAL Blood Gas Patient Temperature 98.6 Blood Gas HCO3 30 Blood Gas Base Excess 5.7 Blood Gas Oxygen Saturation 92 Arterial Blood pH 7.44 Arterial Blood Partial Pressure CO2 45 Arterial Blood Partial Pressure O2 74 Arterial Blood Oxygen Content 14.6 Arterial Blood Carboxyhemoglobin 2.0 Arterial Blood Methemoglobin 1.0 Blood Gas Hemoglobin 11.2 Oxygen Delivery Device VENTILATOR Blood Gas Ventilator Setting PRVC16/500/0.85/+8 Blood Gas Inspired Oxygen 40 Date/Time Source Procedure Growth Status 06/11/17 16:04 Blood Peripheral Aerobic Blood Culture - Final NO GROWTH IN 5 DAYS Complete 06/11/17 16:04 Blood Peripheral Anaerobic Blood Culture - Final NO GROWTH IN 5 DAYS Complete 06/08/17 15:08 Fluid Pleural Fluid Fungal Smear - Final NO FUNGAL ELEMENTS SEEN. Resulted 06/08/17 15:08 Fluid Pleural Fluid Fungal Culture - Preliminary NO GROWTH IN 1 WEEK Resulted 06/09/17 10:25 Bronchial Washings Right Lower Lobe Fungal Smear - Final NO FUNGAL ELEMENTS SEEN. Resulted 06/09/17 10:25 Bronchial Washings Right Lower Lobe Fungal Culture - Preliminary NO GROWTH IN 1 WEEK Resulted 06/10/17 10:55 Urine Clean Catch Urine Culture - Final Veronica Species Complete Juan Pablo Salas MD Jun 16, 2017 19:29
[2017-06-16] MEDS: HEPARIN SODIUM - SQ 10,000 UNITS/ML VIAL SQ SCH (22:24)
[2017-06-17] VITALS (19 sets, daily range): BP systolic 129–162; BP diastolic 58–95; PULSE 84–102; RESP 17–26; TEMP 98.4–100.7; O2SAT 91–100
[2017-06-17] MEDS: CHLORHEXIDINE GLUCONATE 2 % 1 PACK (2 CLOTHS) TOP SCH ×2 (04:00→21:10)
[2017-06-17] MEDS: LEVOTHYROXINE SODIUM 100 MCG VIAL IV PUSH SCH (06:22)
[2017-06-17] MEDS: cefTRIAXone INJ 2,000 MG in SODIUM CHLORIDE 0.9% INJ 100 ML IV SCH ×2 (06:29→16:11)
[2017-06-17] MEDS: HEPARIN SODIUM - SQ 10,000 UNITS/ML VIAL SQ SCH ×3 (06:32→21:09)
[2017-06-17] MEDS: SODIUM CHLORIDE 0.9% FLUSH 10 ML FLUSH IV FLUSH SCH ×2 (06:33→21:09)
[2017-06-17 07:13] LABS: HEMATOCRIT 30.9 % (35.0-46.0); MEAN CELL VOLUME 99.7 FL (80.0-100.0); MEAN CORPUSCULAR HEMOGLOBIN 32.3 PG (27.0-34.0); MEAN CORPUSCULAR HGB CONC 32.4 % (32.0-36.0); PLATELET COUNT 130 TH/MM3 (150-450); RED CELL DISTRIBUTION WIDTH 19.8 % (11.6-17.2); WHITE BLOOD COUNT 11.5 TH/MM3 (4.0-11.0)
[2017-06-17 07:16] LABS: HEMO FLAGS AUTO DIFF
--- NOTE | 2017-06-17 07:17 | HHI.CCPN ---
Subjective Remarks/Hospital Course 66-year-old female presents confused and lethargic. Patient reportedly was recently seen today at an urgent care and received an injection for low back pain. Patient here denies headaches, chest pain or shortness of breath, abdominal pain or extremity pain. Patient does complain of low back pain. at bedside states that they're visiting from out of state for the past 3 months and will be returning back to their home state in a week. reports patient has chronic low back pain but this exacerbated over the last 24 hours starting yesterday morning. Patient was seen earlier today by her chiropractor for an adjustment and then was referred to an urgent care. Patient reportedly had a fever at the chiropractor's office and felt cold and clammy. At the urgent care patient was evaluated and reportedly had an injection of a nonsteroidal medication as she is diabetic and he did not want to give her a steroid injection. Patient went home about 1:00 PM she was drowsy so sat down in a chair and fell asleep according to the . He tried to awaken her at 4:30 and noticed that she was confusional and lethargic. He attempted to continue to awaken her over the next 2-3 hours and because she was not improving decided finally to call EMS to transport her to the emergency room. Patient and spouse denied any recent injury or fall. Patient was ambulatory this morning but this evening has difficulty elevating her lower extremities as well as she was generally extremely weak. 05/21 Patient is on BIPAP 12/5 with 45% FIO2. Afebrile. Awake. Renal function is improving with Cr: 1.87 from 2.74. 05/22 No events overnight. Patient is more awake and alert off BIPAP. Renal function is improving with Cr: 1.07 from 1.87. delayed note entry. consulted and seen at ~1500. RECONSULT NOTE: 05/30: reconsulted for worsening hypoxemia. now on 6L facemask. please refer to prior consult note for detailed medical history. In brief, 66yF lethargic female, back pain after injection, ? discitis/osteo, on abx for group B strep, worsening fever, tachycardia, tachypnea, o2 requirement to 6L facemask and RR up to 40s. patient unable to provide additional history but does appear in distress. 05/31: Patient remains encephalopathic, on high flow O2 via nasal cannula, this morning was on 60 L/m 55% FiO2. Subsequently has dropped to 30 L/m to extubate percent FiO2. Given 80 mg IV Lasix with no response. Subsequently given Bumex 2 mg IV push and started on Bumex drip at 1 mg/h to attempt to diurese in an effort to improve respiratory status however has not had any increase in urine output with Bumex drip. Creatinine came back elevated at 2.13. Suspect acute kidney injury/ATN which may be a reason for poor response to diuretics. She also spiked a temperature of 103 for which IV Ofirmev was ordered. 06/01: intubated overnight and hypotensive requiring vasopressors. now remains in shock on 2 vasopressors. bedside critical care echo demonstrates hyperdynamic LV with completely collapsed IVC. gave 2L bolus and started on mivf @ 100 cc/hr. still spiking fevers. discussed with Dr. Portillo and plan to repeat LP as well as cultures and imaging to look for source. clinically worse today. 06/02: off vasopressors. remains intubated and sedated, very encephalopathic. MRI with new punctate strokes. STEVEN being done today. also ? abscess in the pelvis of unknown origin, maybe contained diverticulitis? CT guided drainage. although some improvements in hemodynamics, no improvements in vent or encephalopathy. off pathway. 06/03: IR re-ct scan without any evidence of abdominal abscess. blood glucose still not controlled despite high dose algorithm. wbc downtrending. 06/04: wbc continues to downtrend. Cr improving as well. very hypokalemic despite aggressive replacement. blood glucose now < 200, but using high dose insulin drip and levemir. encephalopathy persists. 06/05: clinically improving. weakly following commands this morning. renal function improved. EEG negative for seizures. still too sleepy for safe extubation, but improved from yesterday. 06/06: continues to improve. still weakly following commands. failing SBT- on 20 of PSV with small tidal volumes and very tachypneic. slightly more awake, but still not awake enough for safe extubation. 06/07: Currently tolerating CPAP 15 PSV. Opens eyes tracks. Weekly follows commands on the lower extremity but delayed response. Remains off all sedation approximately 36 hours now. is at the bedside updated 06/08: Fever 100.8, WBC 15.4. But slightly more awake and focussed today. Wiggles toes to command with a delay. CXR shows moderate effusion- plan for CT guided thoracentesis today. D/W IR Dr. Quintanilla and ID Dr. Portillo 06/09: Appears to be becoming more septic. Tmax 101.8. WBC count 14.8 with 21 % bands. Zyvox and cefepime started by Dr. Portillo. Chest CT yesterday showed bilateral dense consolidation at the bases left more than right. Moderate to thick secretion on bronchoscopy and bilateral lower lobes today. Bilateral airways inflamed and friable. New fever, sepsis most likely secondary to healthcare associated pneumonia. s/p right thoracentesis with 225 ml of fluid removed, exudative by light criteria. Hemorrhagic fluid. EEG 06/08 showed moderate encephalopathy, no seizures 06/10: Continues to spike fever up to 101.6. White count stable at 14.7. Had bronchoscopy with thick secretions removed from bilateral lower lobes yesterday. BAL studies are pending. Tolerate CPAP with high pressure support. Chest x-ray slightly improved 06/11: Continues to spike fever overnight fever up to 103. Cultures remain negative except for Marco Antonio UTI. Appears more lethargic. Not able to extubate due to mental status. Will request general surgery consult for tracheostomy, and GI for PEG placement 06/12: Still spiking fever 101.3 overnight, all recent culture and BAL negative. Slightly more awake, but very delayed in following commands. General surgery Dr. Hernandez will trach in OR tomorrow. Creat slightly improved. 06/13: Remains orally intubated on mechanical ventilation. Has spontaneous eye opening and tracks. Off all sedation for 4 days. Awaiting tracheostomy 06/14: Underwent tracheostomy and PEG tube placement on 06/13 tolerated procedures well. Patient remains on mechanical ventilation via tracheostomy this morning and is awake and alert. Follows some commands per nursing staff and at bedside. 06/15: Remains on mechanical ventilation via tracheostomy. Tolerating tube feeds via PEG. Awake, tracks. 06/16 No events overnight. On Insulin drip 16u/hr. On ventilator via trach. On no sedation. T:100.8 last night. 06/17 No events overnight. T:100.4 yesterday. Remains on insulin drip 16u/hr. Objective Vital Signs Date Time Temp Pulse Resp B/P (MAP) Pulse Ox O2 Delivery O2 Flow Rate FiO2 06/17/17 04:28 98 40 06/17/17 00:00 94 06/17/17 00:00 98.4 22 150/95 (113) 06/15/17 03:38 Ventilator Result Diagram: 06/16/17 0930 06/16/17 09 Other Results Laboratory Tests Test 06/16/17 09:30 06/16/17 16:55 06/17/17 02:10 06/17/17 06:15 White Blood Count 14.4 TH/MM3 Red Blood Count 3.16 MIL/MM3 Hemoglobin 10.1 GM/DL Hematocrit 31.4 % Mean Corpuscular Volume 99.3 FL Mean Corpuscular Hemoglobin 32.0 PG Mean Corpuscular Hemoglobin Concent 32.2 % Red Cell Distribution Width 19.8 % Platelet Count 153 TH/MM3 Mean Platelet Volume 11.7 FL CBC Comment AUTO DIFF Differential Total Cells Counted 100 Neutrophils % (Manual) 64 % Band Neutrophils % 8 % Lymphocytes % 11 % Monocytes % 7 % Eosinophils % 2 % Neutrophils # (Manual) 11.5 TH/MM3 Metamyelocytes 2 % Myelocytes 6 % Nucleated Red Blood Cells 2 /100 WBC Differential Comment FINAL DIFF MANUAL Platelet Estimate NORMAL Platelet Morphology Comment NORMAL Polychromasia 2.6 % Blood Urea Nitrogen 11 MG/DL Creatinine 0.81 MG/DL Random Glucose 272 MG/DL Total Protein 6.3 GM/DL Albumin 1.4 GM/DL Calcium Level 8.5 MG/DL Phosphorus Level 1.3 MG/DL 2.8 MG/DL Magnesium Level 1.7 MG/DL Alkaline Phosphatase 497 U/L Aspartate Amino Transf (AST/SGOT) 73 U/L Alanine Aminotransferase (ALT/SGPT) 25 U/L Total Bilirubin 0.9 MG/DL Sodium Level 137 MEQ/L Potassium Level 4.1 MEQ/L Chloride Level 98 MEQ/L Carbon Dioxide Level 30.7 MEQ/L Anion Gap 8 MEQ/L Estimat Glomerular Filtration Rate 71 ML/MIN Blood Gas Puncture Site LT RADIAL Blood Gas Patient Temperature 98.6 Blood Gas HCO3 30 mmol/L Blood Gas Base Excess 5.7 mmol/L Blood Gas Oxygen Saturation 92 % Arterial Blood pH 7.44 Arterial Blood Partial Pressure CO2 45 mmHg Arterial Blood Partial Pressure O2 74 mmHG Arterial Blood Oxygen Content 14.6 Vol % Arterial Blood Carboxyhemoglobin 2.0 % Arterial Blood Methemoglobin 1.0 % Blood Gas Hemoglobin 11.2 G/DL Oxygen Delivery Device VENTILATOR Blood Gas Ventilator Setting PRVC16/500/0.85/+8 Blood Gas Inspired Oxygen 40 % Imaging Last Impressions Chest X-Ray 06/16/17 0000 Signed Impressions: Service Date/Time: Friday, June 16, 2017 09:06 - CONCLUSION: Unchanged cardiomegaly with bilateral pleural effusions and bibasilar infiltrates. Ang Campbell Jr., MD Upper Extremity Ultrasound 06/08/17 0000 Signed Impressions: Service Date/Time: May 10:45 - CONCLUSION: Superficial venous thrombosis of the bilateral upper extremities involving the cephalic veins. Deep veins are patent. Santana Eric MD Thoracentesis 06/08/17 0000 Signed Impressions: Service Date/Time: May 14:49 - CONCLUSION: Uncomplicated CT-guided right thoracentesis with removal of 225 cc of fluid. Please note that most of the chest x-ray opacity actually represents right lower lobe airspace consolidation. Santana Shirley MD Lower Extremity Ultrasound 06/08/17 0000 Signed Impressions: Service Date/Time: May 11:01 - CONCLUSION: Superficial venous thrombosis of the left lower extremity (left greater saphenous vein). No DVT of either lower chroni. Santana Eric MD Carotid Artery Ultrasound 06/08/17 0000 Signed Impressions: Service Date/Time: May 10:29 - CONCLUSION: Minimal atherosclerotic plaque of the left carotid bifurcation. Otherwise normal. No significant narrowing. Santana Eric MD Lumbar Spine MRI 06/03/17 0000 Signed Impressions: Service Date/Time: Saturday, June 03, 2017 15:42 - CONCLUSION: The MRI findings after contrast administration are not convincing for presence of active infection within the L3/L4 disc, adjacent vertebral bodies or epidural space/adjacent soft tissues. Santana Eric MD Pelvis CT 06/02/17 0000 Signed Impressions: Service Date/Time: Friday, June 02, 2017 17:29 - CONCLUSION: No evidence of intra-abdominal abscess collection. Nikita Damon MD Abdomen X-Ray 06/02/17 0000 Signed Impressions: Service Date/Time: Friday, June 02, 2017 15:20 - CONCLUSION: OG tube in the stomach. Mike Davis MD FACR Chest CT 06/01/17 0000 Signed Impressions: Service Date/Time: May 18:49 - CONCLUSION: 1. Dense consolidation in both posterior lower lobes right greater than left with air bronchograms. This could represent pneumonia. 2. Small bilateral pleural effusions. 3. Mild cardiomegaly. Austin Orellana MD Brain MRI 06/01/17 Signed Impressions: Service Date/Time: May 19:15 - CONCLUSION: 1. Multiple new small scattered punctate areas of restricted diffusion consistent with small areas of infarction. This could be secondary to emboli. 2. No acute hemorrhage or mass effect. 3. Acute sinusitis in the ethmoidal air cells and sphenoid sinus with air fluid levels. Austin Orellana MD Abdomen/Pelvis CT 06/01/17 0000 Signed Impressions: Service Date/Time: May 18:49 - CONCLUSION: 1. Suboptimal opacification of the bowel with the distal small bowel unopacified. There is a questionable abnormal gas collection in the anterior lower pelvis. An abscess is not excluded. A repeat study is recommended after additional oral contrast is given. 2. Consolidation in both posterior lung bases with small pleural effusions. Austin Orellana MD Renal Ultrasound 05/31/17 0000 Signed Impressions: Service Date/Time: Wednesday, May 31, 2017 20:47 - CONCLUSION: 1. Suboptimal exam with visualization. 2. No evidence of hydronephrosis. 3. Cyst extending off right kidney. Austin Orellana MD Tumor Localization 05/26/17 0000 Signed Impressions: Service Date/Time: Friday, May 26, 2017 13:36 - CONCLUSION: No abnormal uptake identified to suggest infection. Nikita Damon MD Lumbar Puncture Fluoroscopy 05/25/17 0000 Signed Impressions: Service Date/Time: April 17:41 - CONCLUSION: Uncomplicated fluoroscopically guided lumbar puncture with pressures as above. Shoaib Davis MD Liver Ultrasound 05/21/17 0000 Signed Impressions: Service Date/Time: Sunday, May 21, 2017 10:32 - CONCLUSION: 1. Hepatic steatosis. 2. Gallstones 3. Limited evaluation of the right kidney. Santana Lamar MD Head CT [id number] Signed Impressions: Service Date/Time: Saturday, May 20, 2017 19:55 - CONCLUSION: 1. No acute findings. Retention cyst right maxillary sinus. Jakob Scruggs MD Objective Remarks GENERAL: Patient is 66 yo lying in bed, off all sedation, SKIN: Warm and dry. HEAD: Normocephalic. EYES: No scleral icterus. No injection or drainage. NECK: Tracheostomy in place. LIJ central line in place CARDIOVASCULAR: S1-S2 regular, no gallop or murmur RESPIRATORY: On mechanical ventilation via tracheostomy, PS+14, PEEP+8, fio2 40% , coarse breath sounds bilaterally, no wheezing GASTROINTESTINAL: Abdomen morbidly obese, soft, non-tender, nondistended. MSK: No cyanosis, or edema. NEURO: Opens eyes to command. Weakly follows commands in lower extremity, delayed response. Localizes with UE Procedures None Date of Insertion: May 25, 2017 A/P Assessment and Plan Plan: Neuro: Metabolic Encephalopathy- slight improvement. 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 Remains encephalopathic - Received Versed fentanyl and rocuronium for bronchoscopy 06/09/17, off all sedation - Continue amantadine and, modafinil for wakefulness. - frequent neuro checks, continue aspirin, Keppra - Prev TSH borderline high, T4 low. Continue Synthroid 25 mcg IV daily started 06/08/17. - Ammonia normal. B12 normal - EEG 06/08 moderate encephalopathy, carotid ultrasound no significant stenosis - Consult neuropsychology for encephalopathy. Resp: Acute hypoxic and hypercarbic respiratory failure - persistent. Right pleural effusion Bibasilar infiltrates/HCAP -s/p Bronchoscopy showed inflamed airways, thick secretion bilateral lower lobes. - Continue with vent support keep sat >92% -Bronchodilators, pulm toilet, trach care - Underwent tracheostomy 06/13. 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 - Right thoracentesis with fluid studies-exudative effusion, cultures neg to date Renal: Acute kidney injury- resolved -Monitor renal function, electrolytes replacement per protocol. on Lasix 20mg IV BID FEN/GI: Elevated LFT's Morbid obesity dAcute protein calorie malnutrition- moderate Cholelithiasis - GI consulted -patient underwent PEG tube placement on 06/13 -Continue with tube feeds- Glucerna 1.5 @60ml/hr. -Monitor LFT's ( trending down) -05/21 US abdomen: Hepatic steatosis. Gallstones ID: New Fever ? drug related Possible HCAP marco antonio UTI Septic Shock - resolved Discitis Strep bacteremia (recent blood cultures negative) - abx per ID Dr. Portillo. On ceftriaxone, fluconazole - Bronch with BAL 06/09/17. Follow up on studies - cultures NGTD except initial 4/4 bottles with group B strp. - There is clinical concern for endocarditis (4/4 bottle strep, brain emboli delfino though STEVEN negative) Endocrine: Hyperglycemia Relative Adrenal Insufficiency Possible hyperthyroidism - Hyperglycemia despite high dose insulin drip - continue insulin drip Algorithm #4. - Levemir 80 units SQ q12h - On levothyroxine 25 g daily Prophylaxis: - pepcid - SCDs, Heparin SQ 06/08 US UE: Superficial venous thrombosis of the bilateral upper extremities involving the cephalic veins. Deep veins are patent 06/08: Superficial venous thrombosis of the left lower extremity (left greater saphenous vein). No DVT of either lower ext. Lines: Right IJ CVP placed 06/09 Level 3. Vero Alvarenga MD Jun 17, 2017 07:17
[2017-06-17 07:47] LABS: ANION GAP 8 MEQ/L (5-15); BICARBONATE 31.4 MEQ/L (21.0-32.0); CHLORIDE 98 MEQ/L (98-107); GLOMERULAR FILTRATION RATE 70 ML/MIN (>89); SODIUM (NA) 137 MEQ/L (136-145)
[2017-06-17 07:48] LABS: ALKALINE PHOSPHATASE 438 U/L (45-117)
[2017-06-17 07:49] LABS: BLOOD UREA NITROGEN 12 MG/DL (7-18); POTASSIUM 3.9 MEQ/L (3.5-5.1)
[2017-06-17 08:08] LABS: ALT (GPT) 31 U/L (10-53); AST (GOT) 74 U/L (15-37)
[2017-06-17] MEDS: INSULIN DETEMIR 100 UNITS/ML VIAL SQ SCH (09:00)
[2017-06-17 09:21] LABS: BANDS 8 % (0-6); BASOPHILS 2 % (0-2); CORRECTED NUCLEATED RBC 6 /100 WBC (0-0); METAMYELOCYTES 5 % (0-1); MYELOCYTES 1 % (0-0); NEUTROPHIL # MANUAL DIFF 6.3 TH/MM3 (1.8-7.7); POLYS (SEG NEUTROPHILS) 41 % (16-70); WBC DIFF SAMPLE 100
[2017-06-17 09:22] LABS: POLYCHROMASIA 5.3 % (0.0-1.9)
[2017-06-17 09:26] LABS: PLATELET ESTIMATE SMEAR LOW (NORMAL); PLATELET MORPHOLOGY ENLARGED (NORMAL); SCAN/DIFF FINAL DIFF MANUAL
[2017-06-17] MEDS: FAMOTIDINE 20 MG/2 ML VIAL IV PUSH SCH ×2 (09:57→21:08)
[2017-06-17] MEDS: AMANTADINE HCL SOLN 100 MG/10 ML UDC PO SCH ×2 (09:57→16:21)
[2017-06-17] MEDS: FLUCONAZOLE 100 MG TAB PO SCH (09:58)
[2017-06-17] MEDS: MODAFINIL 200 MG TAB PO SCH (09:58)
[2017-06-17] MEDS: levETIRAcetam INJ 750 MG in SODIUM CHLORIDE 0.9% INJ 100 ML IV SCH ×2 (09:58→21:08)
[2017-06-17] MEDS: DOCUSATE SODIUM 50 MG/SENNA 8.6 MG TAB PO SCH ×2 (09:58→21:08)
[2017-06-17] MEDS: ASPIRIN 325 MG TAB PO SCH (09:58)
[2017-06-17] MEDS: CARVEDILOL 6.25 MG TAB PO SCH ×2 (09:58→21:08)
[2017-06-17] MEDS: SODIUM CHLORIDE 0.9% FLUSH 10 ML FLUSH IV FLUSH PRN (09:59)
[2017-06-17] MEDS: FUROSEMIDE 20 MG/2 ML VIAL IV PUSH SCH ×2 (10:04→21:40)
[2017-06-17] MEDS: INSULIN REGULAR (IV INFUSION) 100 UNITS in SODIUM CHLORIDE 0.9% INJ 99 ML IV PRN ×2 (10:11→18:40)
--- NOTE | 2017-06-17 15:55 | HHI.PR ---
Subjective Remarks 66 YOObese WF with Hypercapnoea, Cellulitis, Bactremia Intubated Off sedation Follows simple commands No Fever at BS planning to move her to [place] Tolerated CPAP 6 hrs Objective Vital Signs Vital Signs Date Time Temp Pulse Resp B/P (MAP) Pulse Ox O2 Delivery O2 Flow Rate FiO2 06/17/17 15:34 40 06/17/17 15:04 98 40 06/17/17 12:00 100.7 98 17 146/66 (92) 97 06/17/17 12:00 98 06/17/17 12:00 40 06/17/17 11:02 97 40 06/17/17 10:00 40 06/17/17 10:00 102 06/17/17 09:02 40 06/17/17 08:00 40 06/17/17 08:00 99.0 100 26 162/65 (97) 98 06/17/17 08:00 100 06/17/17 07:30 99 40 06/17/17 06:00 99 06/17/17 04:28 98 40 06/17/17 04:00 40 06/17/17 04:00 99.7 98 25 152/66 (94) 97 06/17/17 04:00 98 06/17/17 02:00 93 06/17/17 00:47 93 40 06/17/17 00:00 94 06/17/17 00:00 40 06/17/17 00:00 98.4 94 22 150/95 (113) 91 06/16/17 22:00 95 06/16/17 20:00 97.8 93 21 108/64 (79) 97 06/16/17 20:00 93 06/16/17 20:00 40 06/16/17 19:46 96 40 06/16/17 18:00 91 06/16/17 16:30 40 06/16/17 16:00 91 06/16/17 16:00 100.4 91 23 142/65 (90) 97 06/16/17 16:00 40 I/O 06/16/17 06/16/17 06/16/17 06/17/17 06/17/17 06/17/17 07:00 15:00 23:00 07:00 15:00 23:00 Intake Total 1470 ml 207.5 ml 1349 ml 700 ml Output Total 800 ml 875 ml 900 ml Balance 670 ml 207.5 ml 474 ml -200 ml IV Total 200 ml 207.5 ml 450 ml Tube Feeding 670 ml 659 ml 700 ml Other 600 ml 240 ml Output Urine Total 650 ml 425 ml 850 ml Stool Total 150 ml 450 ml 50 ml Result Diagram: 06/17/1761406/17/17614 Objective Remarks GENERAL: Morbidly obese WF, mild sob SKIN: Warm and dry. HEAD: Normocephalic. EYES: No scleral icterus. No injection or drainage. NECK: Supple, trachea midline. No JVD or lymphadenopathy. CARDIOVASCULAR: Regular rate and rhythm without murmurs, gallops, or rubs. RESPIRATORY: Breath sounds equal bilaterally. No accessory muscle use. GASTROINTESTINAL: Abdomen soft, non-tender, nondistended. MUSCULOSKELETAL: No cyanosis, or edema. has swelling and redness of legs BACK: Nontender without obvious deformity. No CVA tenderness. A/P Assessment and Plan Hypercapnoic Resp Insuff CHE or Obesity Hypoventilation synd Cellulitis legs Bactremia back pain Sepsis Encephalopathy PLAN: Vent Support Aerosol nebs Wean 02 to keep sat 88-92% Abx per ID Daily CPAP trial. DW at Dima Bang MD Jun 17, 2017 15:55
[2017-06-17] MEDS: COLLAGENASE OINT 30 GM TUBE TOPICAL SCH (16:13)
[2017-06-17] MEDS: NYSTATIN 100,000 U/GM PWD 15 GM BTL TOPICAL SCH ×2 (16:13→21:09)
[2017-06-17] MEDS ORDERED: ALTEPLASE RECOMBINANT 2 MG VIAL IV FLUSH PRN (17:30)
[2017-06-17] MEDS: ACETAMINOPHEN 325 MG TAB PO PRN (21:08)
[2017-06-18] VITALS (18 sets, daily range): BP systolic 131–153; BP diastolic 57–68; PULSE 74–82; RESP 16–23; TEMP 98.1–99.5; O2SAT 94–100
[2017-06-18 05:04] LABS: AUTOMATED NEUTROPHIL # 4.5 TH/MM3 (1.8-7.7); BASOPHIL # 0.4 TH/MM3 (0-0.2); BASOPHIL % 4.1 % (0.0-2.0); EOSINOPHIL # 0.3 TH/MM3 (0-0.4); EOSINOPHIL % 3.5 % (0.0-4.0); HEMATOCRIT 29.9 % (35.0-46.0); LYMPH % 25.6 % (9.0-44.0); LYMPHOCYTE # 2.2 TH/MM3 (1.0-4.8); MEAN CORPUSCULAR HEMOGLOBIN 31.6 PG (27.0-34.0); MEAN CORPUSCULAR HGB CONC 31.6 % (32.0-36.0); MONO % 14.3 % (0.0-8.0); NEUT % 52.5 % (16.0-70.0); PLATELET COUNT 97 TH/MM3 (150-450); RED BLOOD COUNT 2.99 MIL/MM3 (4.00-5.30); RED CELL DISTRIBUTION WIDTH 21.3 % (11.6-17.2); WHITE BLOOD COUNT 8.6 TH/MM3 (4.0-11.0)
[2017-06-18] MEDS: LEVOTHYROXINE SODIUM 100 MCG VIAL IV PUSH SCH (05:17)
[2017-06-18] MEDS: HEPARIN SODIUM - SQ 10,000 UNITS/ML VIAL SQ SCH ×2 (05:18→21:29)
[2017-06-18] MEDS: cefTRIAXone INJ 2,000 MG in SODIUM CHLORIDE 0.9% INJ 100 ML IV SCH ×2 (05:18→17:00)
[2017-06-18 05:24] LABS: ALKALINE PHOSPHATASE 366 U/L (45-117); TOTAL BILIRUBIN ADULT 0.8 MG/DL (0.2-1.0)
[2017-06-18 05:25] LABS: ANION GAP 8 MEQ/L (5-15); AST (GOT) 61 U/L (15-37); BICARBONATE 31.1 MEQ/L (21.0-32.0); BLOOD UREA NITROGEN 12 MG/DL (7-18); CHLORIDE 100 MEQ/L (98-107); GLOMERULAR FILTRATION RATE 84 ML/MIN (>89); SODIUM (NA) 139 MEQ/L (136-145)
[2017-06-18] MEDS: AMANTADINE HCL SOLN 100 MG/10 ML UDC PO SCH ×2 (05:29→11:57)
[2017-06-18 05:36] LABS: POTASSIUM 4.5 MEQ/L (3.5-5.1)
[2017-06-18 05:57] LABS: ALT (GPT) 19 U/L (10-53)
[2017-06-18 06:08] LABS: HEMO FLAGS AUTO DIFF
--- NOTE | 2017-06-18 07:53 | HHI.CCPN ---
Subjective Remarks/Hospital Course 66-year-old female presents confused and lethargic. Patient reportedly was recently seen today at an urgent care and received an injection for low back pain. Patient here denies headaches, chest pain or shortness of breath, abdominal pain or extremity pain. Patient does complain of low back pain. at bedside states that they're visiting from out of state for the past 3 months and will be returning back to their home state in a week. reports patient has chronic low back pain but this exacerbated over the last 24 hours starting yesterday morning. Patient was seen earlier today by her chiropractor for an adjustment and then was referred to an urgent care. Patient reportedly had a fever at the chiropractor's office and felt cold and clammy. At the urgent care patient was evaluated and reportedly had an injection of a nonsteroidal medication as she is diabetic and he did not want to give her a steroid injection. Patient went home about 1:00 PM she was drowsy so sat down in a chair and fell asleep according to the . He tried to awaken her at 4:30 and noticed that she was confusional and lethargic. He attempted to continue to awaken her over the next 2-3 hours and because she was not improving decided finally to call EMS to transport her to the emergency room. Patient and spouse denied any recent injury or fall. Patient was ambulatory this morning but this evening has difficulty elevating her lower extremities as well as she was generally extremely weak. 05/21 Patient is on BIPAP 12/5 with 45% FIO2. Afebrile. Awake. Renal function is improving with Cr: 1.87 from 2.74. 05/22 No events overnight. Patient is more awake and alert off BIPAP. Renal function is improving with Cr: 1.07 from 1.87. delayed note entry. consulted and seen at ~1500. RECONSULT NOTE: 05/30: reconsulted for worsening hypoxemia. now on 6L facemask. please refer to prior consult note for detailed medical history. In brief, 66yF lethargic female, back pain after injection, ? discitis/osteo, on abx for group B strep, worsening fever, tachycardia, tachypnea, o2 requirement to 6L facemask and RR up to 40s. patient unable to provide additional history but does appear in distress. 05/31: Patient remains encephalopathic, on high flow O2 via nasal cannula, this morning was on 60 L/m 55% FiO2. Subsequently has dropped to 30 L/m to extubate percent FiO2. Given 80 mg IV Lasix with no response. Subsequently given Bumex 2 mg IV push and started on Bumex drip at 1 mg/h to attempt to diurese in an effort to improve respiratory status however has not had any increase in urine output with Bumex drip. Creatinine came back elevated at 2.13. Suspect acute kidney injury/ATN which may be a reason for poor response to diuretics. She also spiked a temperature of 103 for which IV Ofirmev was ordered. 06/01: intubated overnight and hypotensive requiring vasopressors. now remains in shock on 2 vasopressors. bedside critical care echo demonstrates hyperdynamic LV with completely collapsed IVC. gave 2L bolus and started on mivf @ 100 cc/hr. still spiking fevers. discussed with Dr. Portillo and plan to repeat LP as well as cultures and imaging to look for source. clinically worse today. 06/02: off vasopressors. remains intubated and sedated, very encephalopathic. MRI with new punctate strokes. STEVEN being done today. also ? abscess in the pelvis of unknown origin, maybe contained diverticulitis? CT guided drainage. although some improvements in hemodynamics, no improvements in vent or encephalopathy. off pathway. 06/03: IR re-ct scan without any evidence of abdominal abscess. blood glucose still not controlled despite high dose algorithm. wbc downtrending. 06/04: wbc continues to downtrend. Cr improving as well. very hypokalemic despite aggressive replacement. blood glucose now < 200, but using high dose insulin drip and levemir. encephalopathy persists. 06/05: clinically improving. weakly following commands this morning. renal function improved. EEG negative for seizures. still too sleepy for safe extubation, but improved from yesterday. 06/06: continues to improve. still weakly following commands. failing SBT- on 20 of PSV with small tidal volumes and very tachypneic. slightly more awake, but still not awake enough for safe extubation. 06/07: Currently tolerating CPAP 15 PSV. Opens eyes tracks. Weekly follows commands on the lower extremity but delayed response. Remains off all sedation approximately 36 hours now. is at the bedside updated 06/08: Fever 100.8, WBC 15.4. But slightly more awake and focussed today. Wiggles toes to command with a delay. CXR shows moderate effusion- plan for CT guided thoracentesis today. D/W IR Dr. Quintanilla and ID Dr. Portillo 06/09: Appears to be becoming more septic. Tmax 101.8. WBC count 14.8 with 21 % bands. Zyvox and cefepime started by Dr. Portillo. Chest CT yesterday showed bilateral dense consolidation at the bases left more than right. Moderate to thick secretion on bronchoscopy and bilateral lower lobes today. Bilateral airways inflamed and friable. New fever, sepsis most likely secondary to healthcare associated pneumonia. s/p right thoracentesis with 225 ml of fluid removed, exudative by light criteria. Hemorrhagic fluid. EEG 06/08 showed moderate encephalopathy, no seizures 06/10: Continues to spike fever up to 101.6. White count stable at 14.7. Had bronchoscopy with thick secretions removed from bilateral lower lobes yesterday. BAL studies are pending. Tolerate CPAP with high pressure support. Chest x-ray slightly improved 06/11: Continues to spike fever overnight fever up to 103. Cultures remain negative except for Marco Antonio UTI. Appears more lethargic. Not able to extubate due to mental status. Will request general surgery consult for tracheostomy, and GI for PEG placement 06/12: Still spiking fever 101.3 overnight, all recent culture and BAL negative. Slightly more awake, but very delayed in following commands. General surgery Dr. Hernandez will trach in OR tomorrow. Creat slightly improved. 06/13: Remains orally intubated on mechanical ventilation. Has spontaneous eye opening and tracks. Off all sedation for 4 days. Awaiting tracheostomy 06/14: Underwent tracheostomy and PEG tube placement on 06/13 tolerated procedures well. Patient remains on mechanical ventilation via tracheostomy this morning and is awake and alert. Follows some commands per nursing staff and at bedside. 06/15: Remains on mechanical ventilation via tracheostomy. Tolerating tube feeds via PEG. Awake, tracks. 06/16 No events overnight. On Insulin drip 16u/hr. On ventilator via trach. On no sedation. T:100.8 last night. 06/17 No events overnight. T:100.4 yesterday. Remains on insulin drip 16u/hr. 06/18 Patient remains on ventilator via trach. TF held on insulin drip down to 5u/hr. T:100.1 last night. Objective Vital Signs Date Time Temp Pulse Resp B/P (MAP) Pulse Ox O2 Delivery O2 Flow Rate FiO2 06/18/17 07:20 97 35 06/18/17 06:00 81 06/18/17 04:00 98.6 19 135/63 (87) 06/15/17 03:38 Ventilator Intake and Output 06/18/17 06/18/17 06/19/17 08:00 16:00 00:00 Intake Total 220 ml Output Total 575 ml Balance -355 ml Result Diagram: 06/18/17 0346 06/18/17 0340 Other Results Laboratory Tests Test 06/18/17 03:40 06/18/17 03:46 Blood Urea Nitrogen 12 MG/DL Creatinine 0.70 MG/DL Random Glucose 190 MG/DL Total Protein 5.8 GM/DL Albumin 1.2 GM/DL Calcium Level 8.9 MG/DL Alkaline Phosphatase 366 U/L Aspartate Amino Transf (AST/SGOT) 61 U/L Alanine Aminotransferase (ALT/SGPT) 19 U/L Total Bilirubin 0.8 MG/DL Sodium Level 139 MEQ/L Potassium Level 4.5 MEQ/L Chloride Level 100 MEQ/L Carbon Dioxide Level 31.1 MEQ/L Anion Gap 8 MEQ/L Estimat Glomerular Filtration Rate 84 ML/MIN White Blood Count 8.6 TH/MM3 Red Blood Count 2.99 MIL/MM3 Hemoglobin 9.4 GM/DL Hematocrit 29.9 % Mean Corpuscular Volume 100.0 FL Mean Corpuscular Hemoglobin 31.6 PG Mean Corpuscular Hemoglobin Concent 31.6 % Red Cell Distribution Width 21.3 % Platelet Count 97 TH/MM3 Mean Platelet Volume 11.4 FL Neutrophils (%) (Auto) 52.5 % Lymphocytes (%) (Auto) 25.6 % Monocytes (%) (Auto) 14.3 % Eosinophils (%) (Auto) 3.5 % Basophils (%) (Auto) 4.1 % Neutrophils # (Auto) 4.5 TH/MM3 Lymphocytes # (Auto) 2.2 TH/MM3 Monocytes # (Auto) 1.2 TH/MM3 Eosinophils # (Auto) 0.3 TH/MM3 Basophils # (Auto) 0.4 TH/MM3 CBC Comment AUTO DIFF Imaging Last Impressions Chest X-Ray 06/16/17 Signed Impressions: Service Date/Time: Friday, June 16, 2017 09:06 - CONCLUSION: Unchanged cardiomegaly with bilateral pleural effusions and bibasilar infiltrates. Ang Campbell Jr., MD Upper Extremity Ultrasound 06/08/17 Signed Impressions: Service Date/Time: May 10:45 - CONCLUSION: Superficial venous thrombosis of the bilateral upper extremities involving the cephalic veins. Deep veins are patent. Santana Eric MD Thoracentesis 06/08/17 Signed Impressions: Service Date/Time: May 14:49 - CONCLUSION: Uncomplicated CT-guided right thoracentesis with removal of 225 cc of fluid. Please note that most of the chest x-ray opacity actually represents right lower lobe airspace consolidation. Santana Shirley MD Lower Extremity Ultrasound 06/08/17 Signed Impressions: Service Date/Time: May 11:01 - CONCLUSION: Superficial venous thrombosis of the left lower extremity (left greater saphenous vein). No DVT of either lower chroni. Santana Eric MD Carotid Artery Ultrasound 06/08/17 Signed Impressions: Service Date/Time: May 10:29 - CONCLUSION: Minimal atherosclerotic plaque of the left carotid bifurcation. Otherwise normal. No significant narrowing. Santana Eric MD Lumbar Spine MRI 06/03/17 Signed Impressions: Service Date/Time: Saturday, June 03, 2017 15:42 - CONCLUSION: The MRI findings after contrast administration are not convincing for presence of active infection within the L3/L4 disc, adjacent vertebral bodies or epidural space/adjacent soft tissues. Santana Eric MD Pelvis CT 06/02/17 Signed Impressions: Service Date/Time: Friday, June 02, 2017 17:29 - CONCLUSION: No evidence of intra-abdominal abscess collection. Nikita Damon MD Abdomen X-Ray 06/02/17 Signed Impressions: Service Date/Time: Friday, June 02, 2017 15:20 - CONCLUSION: OG tube in the stomach. Mike Davis MD FACR Chest CT 06/01/17 0000 Signed Impressions: Service Date/Time: May 18:49 - CONCLUSION: 1. Dense consolidation in both posterior lower lobes right greater than left with air bronchograms. This could represent pneumonia. 2. Small bilateral pleural effusions. 3. Mild cardiomegaly. Austin Orellana MD Brain MRI 06/01/17 0000 Signed Impressions: Service Date/Time: May 19:15 - CONCLUSION: 1. Multiple new small scattered punctate areas of restricted diffusion consistent with small areas of infarction. This could be secondary to emboli. 2. No acute hemorrhage or mass effect. 3. Acute sinusitis in the ethmoidal air cells and sphenoid sinus with air fluid levels. Austin Orellana MD Abdomen/Pelvis CT 06/01/17 0000 Signed Impressions: Service Date/Time: May 18:49 - CONCLUSION: 1. Suboptimal opacification of the bowel with the distal small bowel unopacified. There is a questionable abnormal gas collection in the anterior lower pelvis. An abscess is not excluded. A repeat study is recommended after additional oral contrast is given. 2. Consolidation in both posterior lung bases with small pleural effusions. Austin Orellana MD Renal Ultrasound 05/31/17 0000 Signed Impressions: Service Date/Time: Wednesday, May 31, 2017 20:47 - CONCLUSION: 1. Suboptimal exam with visualization. 2. No evidence of hydronephrosis. 3. Cyst extending off right kidney. Austin Orellana MD Tumor Localization 05/26/17 0000 Signed Impressions: Service Date/Time: Friday, May 26, 2017 13:36 - CONCLUSION: No abnormal uptake identified to suggest infection. Nikita Damon MD Lumbar Puncture Fluoroscopy 05/25/17 0000 Signed Impressions: Service Date/Time: April 17:41 - CONCLUSION: Uncomplicated fluoroscopically guided lumbar puncture with pressures as above. Shoaib Davis MD Liver Ultrasound 05/21/17 0000 Signed Impressions: Service Date/Time: Sunday, May 21, 2017 10:32 - CONCLUSION: 1. Hepatic steatosis. 2. Gallstones 3. Limited evaluation of the right kidney. Santana Lamar MD Head CT [id number] Signed Impressions: Service Date/Time: Saturday, May 20, 2017 19:55 - CONCLUSION: 1. No acute findings. Retention cyst right maxillary sinus. Jakob Scruggs MD Objective Remarks GENERAL: Patient is 66 yo lying in bed, off all sedation, SKIN: Warm and dry. HEAD: Normocephalic. EYES: No scleral icterus. No injection or drainage. NECK: Tracheostomy in place. LIJ central line in place CARDIOVASCULAR: S1-S2 regular, no gallop or murmur RESPIRATORY: On mechanical ventilation via tracheostomy, PS+14, PEEP+8, fio2 40% , coarse breath sounds bilaterally, no wheezing GASTROINTESTINAL: Abdomen morbidly obese, soft, non-tender, nondistended. MSK: No cyanosis, or edema. NEURO: Opens eyes to command. Weakly follows commands in lower extremity, delayed response. Localizes with UE Procedures None Date of Insertion: May 25, 2017 A/P Assessment and Plan Plan: Neuro: Metabolic Encephalopathy- slight improvement. Acute CVA, multifocal areas of ischemia Possible TOBACCO GROWER Infection Discitis - MRI brain06/01 diffuse areas of small infarcts, possibly embolic - Off all sedating medications. - Received Versed fentanyl and rocuronium for bronchoscopy 06/09/17, off all sedation - Continue amantadine and, modafinil for wakefulness. - frequent neuro checks, continue aspirin, Keppra - Prev TSH borderline high, T4 low. Continue Synthroid 25 mcg IV daily started 06/08/17. - Ammonia normal. B12 normal - EEG 06/08 moderate encephalopathy, carotid ultrasound no significant stenosis - Consult neuropsychology for encephalopathy. Resp: Acute hypoxic and hypercarbic respiratory failure - persistent. Right pleural effusion Bibasilar infiltrates/HCAP -s/p Bronchoscopy showed inflamed airways, thick secretion bilateral lower lobes. - Continue with vent support keep sat >92% -Bronchodilators, pulm toilet, trach care - Underwent tracheostomy 06/13. 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 - Right thoracentesis with fluid studies-exudative effusion, cultures neg Renal: Acute kidney injury- resolved -Monitor renal function, electrolytes replacement per protocol. on Lasix 20mg IV BID FEN/GI: Elevated LFT's Morbid obesity dAcute protein calorie malnutrition- moderate Cholelithiasis - GI consulted -patient underwent PEG tube placement on 06/13 -Resume tube feeds- Glucerna 1.5 @60ml/hr. -Monitor LFT's ( trending down) -05/21 US abdomen: Hepatic steatosis. Gallstones ID: New Fever ? drug related Possible HCAP marco antonio UTI Septic Shock - resolved Discitis Strep bacteremia (recent blood cultures negative) - abx per ID Dr. Portillo. On ceftriaxone, fluconazole. Check sputum cx, UA - Bronch with BAL 06/09/17. Follow up on studies - cultures NGTD except initial 4/4 bottles with group B strp. - There is clinical concern for endocarditis (4/4 bottle strep, brain emboli delfino though STEVEN negative) Endocrine: Hyperglycemia Relative Adrenal Insufficiency Possible hyperthyroidism -On Insulin drip 5u/hr will transition to SSI ( medium scale) - Resume Levemir 12 units SQ q12h - On levothyroxine 25 g daily Prophylaxis: - pepcid - SCDs, Heparin SQ 06/08 US UE: Superficial venous thrombosis of the bilateral upper extremities involving the cephalic veins. Deep veins are patent 06/08: Superficial venous thrombosis of the left lower extremity (left greater saphenous vein). No DVT of either lower ext. Lines: Right IJ CVP placed 06/09 Awaiting transfer to LTAC facility in [place]. process control manager is following. Level 3. Vero Alvarenga MD Jun 18, 2017 07:53
[2017-06-18] MEDS ORDERED: GLUCAGON 1 MG/ML VIAL OTHER PRN (08:00)
[2017-06-18] MEDS ORDERED: DEXTROSE 50% IN WATER 50 ML VIAL(D50) IV PUSH PRN (08:00)
[2017-06-18] MEDS: SODIUM CHLORIDE 0.9% FLUSH 10 ML FLUSH IV FLUSH SCH ×2 (08:07→21:28)
[2017-06-18] MEDS: MODAFINIL 200 MG TAB PO SCH (08:08)
[2017-06-18] MEDS: DOCUSATE SODIUM 50 MG/SENNA 8.6 MG TAB PO SCH ×2 (08:08→21:29)
[2017-06-18] MEDS: FAMOTIDINE 20 MG/2 ML VIAL IV PUSH SCH ×2 (08:08→21:46)
[2017-06-18] MEDS: CARVEDILOL 6.25 MG TAB PO SCH ×2 (08:09→21:29)
[2017-06-18] MEDS: levETIRAcetam INJ 750 MG in SODIUM CHLORIDE 0.9% INJ 100 ML IV SCH ×2 (08:09→21:46)
[2017-06-18] MEDS: FLUCONAZOLE 100 MG TAB PO SCH (08:09)
[2017-06-18] MEDS: ASPIRIN 325 MG TAB PO SCH (08:09)
[2017-06-18] MEDS: NYSTATIN 100,000 U/GM PWD 15 GM BTL TOPICAL SCH ×2 (08:10→21:30)
[2017-06-18] MEDS: COLLAGENASE OINT 30 GM TUBE TOPICAL SCH (08:10)
[2017-06-18] MEDS: INSULIN NovoLIN REGULAR SUPPLEMENTAL SCALE SQ SCH ×4 (09:00→21:00)
[2017-06-18 09:27] LABS: BANDS 3 % (0-6); CORRECTED NUCLEATED RBC 6 /100 WBC (0-0); EOSINOPHILS 6 % (0-4); METAMYELOCYTES 5 % (0-1); MYELOCYTES 1 % (0-0); NEUTROPHIL # MANUAL DIFF 4.8 TH/MM3 (1.8-7.7); POLYS (SEG NEUTROPHILS) 46 % (16-70); PROMYELOCYTES 1 % (0-0); WBC DIFF SAMPLE 100
[2017-06-18 09:28] LABS: PLATELET ESTIMATE SMEAR LOW (NORMAL); POLYCHROMASIA 8.3 % (0.0-1.9)
[2017-06-18 09:29] LABS: PLATELET MORPHOLOGY ENLARGED (NORMAL); SCAN/DIFF FINAL DIFF MANUAL
[2017-06-18] MEDS: INSULIN DETEMIR 100 UNITS/ML VIAL SQ SCH ×2 (10:14→21:00)
[2017-06-18 11:20] LABS: BLOOD, URINE LARGE (NEG); GLUCOSE,URINE NEG (NEG); KETONE, URINE NEG (NEG); NITRITE,URINE NEG (NEG); URINE COLOR YELLOW (YELLW/STRAW)
[2017-06-18 11:24] LABS: BACTERIA, URINE FEW /hpf; COMMENT (UR) CATH-CULTURE IND; CULTURE IF INDICATED CATH CULTURE IND; MUCUS URINE FEW /lpf (OCC); SQUAMOUS EPITHELIAL CELL URINE > 8 /hpf (0-5)
[2017-06-18] MEDS: FUROSEMIDE 20 MG/2 ML VIAL IV PUSH SCH ×2 (11:57→22:04)
[2017-06-18] MEDS: ACETAMINOPHEN 325 MG TAB PO PRN (12:01)
--- NOTE | 2017-06-18 18:17 | HHI.PR ---
Subjective Remarks 66 YOObese WF with Hypercapnoea, Cellulitis, Bactremia Intubated Off sedation Follows simple commands No Fever Objective Vital Signs Vital Signs Date Time Temp Pulse Resp B/P (MAP) Pulse Ox O2 Delivery O2 Flow Rate FiO2 06/18/17 15:54 99 35 06/18/17 10:29 100 35 06/18/17 08:22 35 06/18/17 08:00 82 06/18/17 07:20 97 35 06/18/17 06:00 81 06/18/17 04:30 99 35 06/18/17 04:00 80 06/18/17 04:00 35 06/18/17 04:00 98.6 80 19 135/63 (87) 97 06/18/17 02:00 79 06/18/17 00:00 40 06/18/17 00:00 79 06/18/17 00:00 98.5 79 23 131/62 (85) 96 06/17/17 22:01 100 40 06/17/17 22:00 84 06/17/17 22:00 40 06/17/17 20:43 100 40 06/17/17 20:00 86 06/17/17 20:00 100.1 86 24 146/65 (92) 99 I/O 06/17/17 06/17/17 06/17/17 06/18/17 06/18/17 06/18/17 07:00 15:00 23:00 07:00 15:00 23:00 Intake Total 700 ml 107.5 ml 100 ml 220 ml Output Total 900 ml 1000 ml 575 ml Balance -200 ml 107.5 ml -900 ml -355 ml IV Total 107.5 ml 100 ml 100 ml Tube Feeding 700 ml Other 120 ml Output Urine Total 850 ml 650 ml 475 ml Stool Total 50 ml 350 ml 100 ml Result Diagram: 06/18/17 0346 06/18/17 0340 Objective Remarks GENERAL: Morbidly obese WF, mild sob SKIN: Warm and dry. HEAD: Normocephalic. EYES: No scleral icterus. No injection or drainage. NECK: Supple, trachea midline. No JVD or lymphadenopathy. CARDIOVASCULAR: Regular rate and rhythm without murmurs, gallops, or rubs. RESPIRATORY: Breath sounds equal bilaterally. No accessory muscle use. GASTROINTESTINAL: Abdomen soft, non-tender, nondistended. MUSCULOSKELETAL: No cyanosis, or edema. has swelling and redness of legs BACK: Nontender without obvious deformity. No CVA tenderness. A/P Assessment and Plan Hypercapnoic Resp Insuff CHE or Obesity Hypoventilation synd Cellulitis legs Bactremia back pain Sepsis Encephalopathy PLAN: Vent Support Aerosol nebs Wean 02 to keep sat 88-92% Abx per ID Daily CPAP trial. Dima Bang MD Jun 18, 2017 18:17
[2017-06-18] MEDS: RESP: ALBUTEROL 2.5 MG/IPRATROPIUM 0.5 MG NEB (PRN) NEB (22:52)
[2017-06-19] VITALS (19 sets, daily range): BP systolic 114–141; BP diastolic 53–64; PULSE 78–90; RESP 16–24; TEMP 98.6–100.7; O2SAT 94–100
[2017-06-19] MEDS: INSULIN NovoLIN REGULAR SUPPLEMENTAL SCALE SQ SCH ×6 (01:00→20:15)
[2017-06-19] MEDS: CHLORHEXIDINE GLUCONATE 2 % 1 PACK (2 CLOTHS) TOP SCH (04:00)
[2017-06-19 04:21] LABS: BASOPHIL # 0.3 TH/MM3 (0-0.2); BASOPHIL % 4.5 % (0.0-2.0); EOSINOPHIL # 0.3 TH/MM3 (0-0.4); EOSINOPHIL % 3.7 % (0.0-4.0); HEMATOCRIT 29.3 % (35.0-46.0); LYMPHOCYTE # 1.6 TH/MM3 (1.0-4.8); MEAN CELL VOLUME 100.3 FL (80.0-100.0); MEAN CORPUSCULAR HEMOGLOBIN 31.6 PG (27.0-34.0); MEAN CORPUSCULAR HGB CONC 31.5 % (32.0-36.0); MONO % 15.8 % (0.0-8.0); PLATELET COUNT 134 TH/MM3 (150-450); RED BLOOD COUNT 2.92 MIL/MM3 (4.00-5.30); RED CELL DISTRIBUTION WIDTH 22.1 % (11.6-17.2); WHITE BLOOD COUNT 7.4 TH/MM3 (4.0-11.0)
[2017-06-19 04:28] LABS: HEMO FLAGS AUTO DIFF
[2017-06-19] MEDS: cefTRIAXone INJ 2,000 MG in SODIUM CHLORIDE 0.9% INJ 100 ML IV SCH ×2 (04:35→16:19)
[2017-06-19 04:45] LABS: BICARBONATE 30.9 MEQ/L (21.0-32.0); POTASSIUM 4.4 MEQ/L (3.5-5.1)
[2017-06-19] MEDS: HEPARIN SODIUM - SQ 10,000 UNITS/ML VIAL SQ SCH ×3 (05:15→22:37)
[2017-06-19] MEDS: LEVOTHYROXINE SODIUM 100 MCG VIAL IV PUSH SCH (05:15)
[2017-06-19] MEDS: AMANTADINE HCL SOLN 100 MG/10 ML UDC PO SCH ×2 (06:01→16:22)
[2017-06-19 06:58] LABS: BANDS 15 % (0-6); CORRECTED NUCLEATED RBC 4 /100 WBC (0-0); EOSINOPHILS 8 % (0-4); METAMYELOCYTES 4 % (0-1); MYELOCYTES 1 % (0-0); NEUTROPHIL # MANUAL DIFF 4.6 TH/MM3 (1.8-7.7); POLYS (SEG NEUTROPHILS) 42 % (16-70); WBC DIFF SAMPLE 100
[2017-06-19 06:59] LABS: POLYCHROMASIA 4.3 % (0.0-1.9)
[2017-06-19 07:00] LABS: PLATELET ESTIMATE SMEAR LOW (NORMAL); PLATELET MORPHOLOGY ENLARGED (NORMAL); SCAN/DIFF FINAL DIFF MANUAL
--- NOTE | 2017-06-19 08:01 | HHI.CCPN ---
Subjective Remarks/Hospital Course 66-year-old female presents confused and lethargic. Patient reportedly was recently seen today at an urgent care and received an injection for low back pain. Patient here denies headaches, chest pain or shortness of breath, abdominal pain or extremity pain. Patient does complain of low back pain. at bedside states that they're visiting from out of state for the past 3 months and will be returning back to their home state in a week. reports patient has chronic low back pain but this exacerbated over the last 24 hours starting yesterday morning. Patient was seen earlier today by her chiropractor for an adjustment and then was referred to an urgent care. Patient reportedly had a fever at the chiropractor's office and felt cold and clammy. At the urgent care patient was evaluated and reportedly had an injection of a nonsteroidal medication as she is diabetic and he did not want to give her a steroid injection. Patient went home about 1:00 PM she was drowsy so sat down in a chair and fell asleep according to the . He tried to awaken her at 4:30 and noticed that she was confusional and lethargic. He attempted to continue to awaken her over the next 2-3 hours and because she was not improving decided finally to call EMS to transport her to the emergency room. Patient and spouse denied any recent injury or fall. Patient was ambulatory this morning but this evening has difficulty elevating her lower extremities as well as she was generally extremely weak. 05/21 Patient is on BIPAP 12/5 with 45% FIO2. Afebrile. Awake. Renal function is improving with Cr: 1.87 from 2.74. 05/22 No events overnight. Patient is more awake and alert off BIPAP. Renal function is improving with Cr: 1.07 from 1.87. delayed note entry. consulted and seen at ~1500. RECONSULT NOTE: 05/30: reconsulted for worsening hypoxemia. now on 6L facemask. please refer to prior consult note for detailed medical history. In brief, 66yF lethargic female, back pain after injection, ? discitis/osteo, on abx for group B strep, worsening fever, tachycardia, tachypnea, o2 requirement to 6L facemask and RR up to 40s. patient unable to provide additional history but does appear in distress. 05/31: Patient remains encephalopathic, on high flow O2 via nasal cannula, this morning was on 60 L/m 55% FiO2. Subsequently has dropped to 30 L/m to extubate percent FiO2. Given 80 mg IV Lasix with no response. Subsequently given Bumex 2 mg IV push and started on Bumex drip at 1 mg/h to attempt to diurese in an effort to improve respiratory status however has not had any increase in urine output with Bumex drip. Creatinine came back elevated at 2.13. Suspect acute kidney injury/ATN which may be a reason for poor response to diuretics. She also spiked a temperature of 103 for which IV Ofirmev was ordered. 06/01: intubated overnight and hypotensive requiring vasopressors. now remains in shock on 2 vasopressors. bedside critical care echo demonstrates hyperdynamic LV with completely collapsed IVC. gave 2L bolus and started on mivf @ 100 cc/hr. still spiking fevers. discussed with Dr. Portillo and plan to repeat LP as well as cultures and imaging to look for source. clinically worse today. 06/02: off vasopressors. remains intubated and sedated, very encephalopathic. MRI with new punctate strokes. STEVEN being done today. also ? abscess in the pelvis of unknown origin, maybe contained diverticulitis? CT guided drainage. although some improvements in hemodynamics, no improvements in vent or encephalopathy. off pathway. 06/03: IR re-ct scan without any evidence of abdominal abscess. blood glucose still not controlled despite high dose algorithm. wbc downtrending. 06/04: wbc continues to downtrend. Cr improving as well. very hypokalemic despite aggressive replacement. blood glucose now < 200, but using high dose insulin drip and levemir. encephalopathy persists. 06/05: clinically improving. weakly following commands this morning. renal function improved. EEG negative for seizures. still too sleepy for safe extubation, but improved from yesterday. 06/06: continues to improve. still weakly following commands. failing SBT- on 20 of PSV with small tidal volumes and very tachypneic. slightly more awake, but still not awake enough for safe extubation. 06/07: Currently tolerating CPAP 15 PSV. Opens eyes tracks. Weekly follows commands on the lower extremity but delayed response. Remains off all sedation approximately 36 hours now. is at the bedside updated 06/08: Fever 100.8, WBC 15.4. But slightly more awake and focussed today. Wiggles toes to command with a delay. CXR shows moderate effusion- plan for CT guided thoracentesis today. D/W IR Dr. Quintanilla and ID Dr. Portillo 06/09: Appears to be becoming more septic. Tmax 101.8. WBC count 14.8 with 21 % bands. Zyvox and cefepime started by Dr. Portillo. Chest CT yesterday showed bilateral dense consolidation at the bases left more than right. Moderate to thick secretion on bronchoscopy and bilateral lower lobes today. Bilateral airways inflamed and friable. New fever, sepsis most likely secondary to healthcare associated pneumonia. s/p right thoracentesis with 225 ml of fluid removed, exudative by light criteria. Hemorrhagic fluid. EEG 06/08 showed moderate encephalopathy, no seizures 06/10: Continues to spike fever up to 101.6. White count stable at 14.7. Had bronchoscopy with thick secretions removed from bilateral lower lobes yesterday. BAL studies are pending. Tolerate CPAP with high pressure support. Chest x-ray slightly improved 06/11: Continues to spike fever overnight fever up to 103. Cultures remain negative except for Marco Antonio UTI. Appears more lethargic. Not able to extubate due to mental status. Will request general surgery consult for tracheostomy, and GI for PEG placement 06/12: Still spiking fever 101.3 overnight, all recent culture and BAL negative. Slightly more awake, but very delayed in following commands. General surgery Dr. Hernandez will trach in OR tomorrow. Creat slightly improved. 06/13: Remains orally intubated on mechanical ventilation. Has spontaneous eye opening and tracks. Off all sedation for 4 days. Awaiting tracheostomy 06/14: Underwent tracheostomy and PEG tube placement on 06/13 tolerated procedures well. Patient remains on mechanical ventilation via tracheostomy this morning and is awake and alert. Follows some commands per nursing staff and at bedside. 06/15: Remains on mechanical ventilation via tracheostomy. Tolerating tube feeds via PEG. Awake, tracks. 06/16 No events overnight. On Insulin drip 16u/hr. On ventilator via trach. On no sedation. T:100.8 last night. 06/17 No events overnight. T:100.4 yesterday. Remains on insulin drip 16u/hr. 06/18 Patient remains on ventilator via trach. TF held on insulin drip down to 5u/hr. T:100.1 last night. 06/19 Patient is off insulin drip, tolerated CPAP trials x 7 hrs yesterday. T: 99.8 Objective Vital Signs Date Time Temp Pulse Resp B/P (MAP) Pulse Ox O2 Delivery O2 Flow Rate FiO2 06/19/17 06:00 84 06/19/17 04:25 99 35 06/19/17 04:00 99.8 18 124/56 (78) Intake and Output 06/19/17 06/19/17 06/20/17 08:00 16:00 00:00 Intake Total 439 ml Output Total 500 ml Balance -61 ml Result Diagram: 06/19/17 0326 06/19/17 0326 Other Results Laboratory Tests Test 06/18/17 10:15 06/19/17 03:26 Urine Color YELLOW Urine Turbidity CLOUDY Urine pH 6.0 Urine Specific [place] 1.025 Urine Protein 30 mg/dL Urine Glucose (UA) NEG mg/dL Urine Ketones NEG mg/dL Urine Occult Blood LARGE Urine Nitrite NEG Urine Bilirubin NEG Urine Urobilinogen LESS THAN 2.0 MG/DL Urine Leukocyte Esterase LARGE Urine RBC 25-49 /hpf Urine WBC 20-24 /hpf Urine Squamous Epithelial Cells > 8 /hpf Urine Bacteria FEW /hpf Urine Mucus FEW /lpf Microscopic Urinalysis Comment CATH-CULTURE IND White Blood Count 7.4 TH/MM3 Red Blood Count 2.92 MIL/MM3 Hemoglobin 9.2 GM/DL Hematocrit 29.3 % Mean Corpuscular Volume 100.3 FL Mean Corpuscular Hemoglobin 31.6 PG Mean Corpuscular Hemoglobin Concent 31.5 % Red Cell Distribution Width 22.1 % Platelet Count 134 TH/MM3 Mean Platelet Volume 11.2 FL Neutrophils (%) (Auto) 54.0 % Lymphocytes (%) (Auto) 22.0 % Monocytes (%) (Auto) 15.8 % Eosinophils (%) (Auto) 3.7 % Basophils (%) (Auto) 4.5 % Neutrophils # (Auto) 4.0 TH/MM3 Lymphocytes # (Auto) 1.6 TH/MM3 Monocytes # (Auto) 1.2 TH/MM3 Eosinophils # (Auto) 0.3 TH/MM3 Basophils # (Auto) 0.3 TH/MM3 CBC Comment AUTO DIFF Differential Total Cells Counted 100 Neutrophils % (Manual) 42 % Band Neutrophils % 15 % Lymphocytes % 22 % Monocytes % 8 % Eosinophils % 8 % Neutrophils # (Manual) 4.6 TH/MM3 Metamyelocytes 4 % Myelocytes 1 % Nucleated Red Blood Cells 4 /100 WBC Differential Comment FINAL DIFF MANUAL Platelet Estimate LOW Platelet Morphology Comment ENLARGED Polychromasia 4.3 % Blood Urea Nitrogen 15 MG/DL Creatinine 0.75 MG/DL Random Glucose 295 MG/DL Calcium Level 8.9 MG/DL Sodium Level 139 MEQ/L Potassium Level 4.4 MEQ/L Chloride Level 100 MEQ/L Carbon Dioxide Level 30.9 MEQ/L Anion Gap 8 MEQ/L Estimat Glomerular Filtration Rate 78 ML/MIN Imaging Last Impressions Chest X-Ray 06/16/17 0000 Signed Impressions: Service Date/Time: Friday, June 16, 2017 09:06 - CONCLUSION: Unchanged cardiomegaly with bilateral pleural effusions and bibasilar infiltrates. Ang Campbell Jr., MD Upper Extremity Ultrasound 06/08/17 0000 Signed Impressions: Service Date/Time: May 10:45 - CONCLUSION: Superficial venous thrombosis of the bilateral upper extremities involving the cephalic veins. Deep veins are patent. Santana Eric MD Thoracentesis 06/08/17 0000 Signed Impressions: Service Date/Time: May 14:49 - CONCLUSION: Uncomplicated CT-guided right thoracentesis with removal of 225 cc of fluid. Please note that most of the chest x-ray opacity actually represents right lower lobe airspace consolidation. Santana Shirley MD Lower Extremity Ultrasound 06/08/17 0000 Signed Impressions: Service Date/Time: May 11:01 - CONCLUSION: Superficial venous thrombosis of the left lower extremity (left greater saphenous vein). No DVT of either lower chroni. Santana Eric MD Carotid Artery Ultrasound 06/08/17 0000 Signed Impressions: Service Date/Time: May 10:29 - CONCLUSION: Minimal atherosclerotic plaque of the left carotid bifurcation. Otherwise normal. No significant narrowing. Santana Eric MD Lumbar Spine MRI 06/03/17 Signed Impressions: Service Date/Time: Saturday, June 03, 2017 15:42 - CONCLUSION: The MRI findings after contrast administration are not convincing for presence of active infection within the L3/L4 disc, adjacent vertebral bodies or epidural space/adjacent soft tissues. Santana Eric MD Pelvis CT 06/02/17 Signed Impressions: Service Date/Time: Friday, June 02, 2017 17:29 - CONCLUSION: No evidence of intra-abdominal abscess collection. Nikita Damon MD Abdomen X-Ray 06/02/17 Signed Impressions: Service Date/Time: Friday, June 02, 2017 15:20 - CONCLUSION: OG tube in the stomach. Mike Davis MD FACR Chest CT 06/01/17 Signed Impressions: Service Date/Time: May 18:49 - CONCLUSION: 1. Dense consolidation in both posterior lower lobes right greater than left with air bronchograms. This could represent pneumonia. 2. Small bilateral pleural effusions. 3. Mild cardiomegaly. Austin Orellana MD Brain MRI 06/01/17 Signed Impressions: Service Date/Time: May 19:15 - CONCLUSION: 1. Multiple new small scattered punctate areas of restricted diffusion consistent with small areas of infarction. This could be secondary to emboli. 2. No acute hemorrhage or mass effect. 3. Acute sinusitis in the ethmoidal air cells and sphenoid sinus with air fluid levels. Austin Orellana MD Abdomen/Pelvis CT 06/01/17 Signed Impressions: Service Date/Time: May 18:49 - CONCLUSION: 1. Suboptimal opacification of the bowel with the distal small bowel unopacified. There is a questionable abnormal gas collection in the anterior lower pelvis. An abscess is not excluded. A repeat study is recommended after additional oral contrast is given. 2. Consolidation in both posterior lung bases with small pleural effusions. Austin Orellana MD Renal Ultrasound 05/31/17 Signed Impressions: Service Date/Time: Wednesday, May 31, 2017 20:47 - CONCLUSION: 1. Suboptimal exam with visualization. 2. No evidence of hydronephrosis. 3. Cyst extending off right kidney. Austin Orellana MD Tumor Localization 05/26/17 0000 Signed Impressions: Service Date/Time: Friday, May 26, 2017 13:36 - CONCLUSION: No abnormal uptake identified to suggest infection. Nikita Damon MD Lumbar Puncture Fluoroscopy 05/25/17 0000 Signed Impressions: Service Date/Time: April 17:41 - CONCLUSION: Uncomplicated fluoroscopically guided lumbar puncture with pressures as above. Shoaib Davis MD Liver Ultrasound 05/21/17 0000 Signed Impressions: Service Date/Time: Sunday, May 21, 2017 10:32 - CONCLUSION: 1. Hepatic steatosis. 2. Gallstones 3. Limited evaluation of the right kidney. Santana Lamar MD Head CT 05/20/[id number] Signed Impressions: Service Date/Time: Saturday, May 20, 2017 19:55 - CONCLUSION: 1. No acute findings. Retention cyst right maxillary sinus. Jakob Scruggs MD Objective Remarks GENERAL: Patient is 66 yo lying in bed, off all sedation, SKIN: Warm and dry. HEAD: Normocephalic. EYES: No scleral icterus. No injection or drainage. NECK: Tracheostomy in place. LIJ central line in place CARDIOVASCULAR: S1-S2 regular, no gallop or murmur RESPIRATORY: On mechanical ventilation via tracheostomy, PS+14, PEEP+8, fio2 40% , coarse breath sounds bilaterally, no wheezing GASTROINTESTINAL: Abdomen morbidly obese, soft, non-tender, nondistended. MSK: No cyanosis, or edema. NEURO: Opens eyes to command. Weakly follows commands in lower extremity, delayed response. Localizes with UE Procedures None Date of Insertion: May 25, 2017 A/P Assessment and Plan Plan: Neuro: Metabolic Encephalopathy- slight improvement. Acute CVA, multifocal areas of ischemia Possible [employer] Infection Discitis - MRI brain06/01 diffuse areas of small infarcts, possibly embolic - Off all sedating medications. - Received Versed fentanyl and rocuronium for bronchoscopy 06/09/17, off all sedation - Continue amantadine and, modafinil for wakefulness. - frequent neuro checks, continue aspirin, Keppra - Prev TSH borderline high, T4 low. Continue Synthroid 25 mcg IV daily started 06/08/17. - Ammonia normal. B12 normal - EEG 06/08 moderate encephalopathy, carotid ultrasound no significant stenosis - Consult neuropsychology for encephalopathy. Resp: Acute hypoxic and hypercarbic respiratory failure - persistent. Right pleural effusion Bibasilar infiltrates/HCAP -s/p Bronchoscopy showed inflamed airways, thick secretion bilateral lower lobes. - Continue with vent support keep sat >92% -Bronchodilators, pulm toilet, trach care - Underwent tracheostomy 06/13. 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 - Right thoracentesis with fluid studies-exudative effusion, cultures neg Renal: Acute kidney injury- resolved -Monitor renal function, electrolytes replacement per protocol. on Lasix 20mg IV BID FEN/GI: Elevated LFT's Morbid obesity dAcute protein calorie malnutrition- moderate Cholelithiasis - GI consulted -patient underwent PEG tube placement on 06/13 -Continue tube feeds- Glucerna 1.5 advance to goal rate @60ml/hr. -Monitor LFT's ( trending down) -05/21 US abdomen: Hepatic steatosis. Gallstones ID: New Fever ? drug related Possible HCAP marco antonio UTI Septic Shock - resolved Discitis Strep bacteremia (recent blood cultures negative) - abx per ID Dr. Portillo. On ceftriaxone, fluconazole. Follow sputum cx, Urine cx from 06/18 - Bronch with BAL 06/09/17. Follow up on studies - cultures NGTD except initial 4/4 bottles with group B strp. - There is clinical concern for endocarditis (4/4 bottle strep, brain emboli delfino though STEVEN negative) Endocrine: Hyperglycemia Relative Adrenal Insufficiency Possible hyperthyroidism -Off insulin drip, increase SSI (High scale) - Increase Levemir 20 units SQ q12h - On levothyroxine 25 g daily Prophylaxis: - Pepcid - SCDs, Heparin SQ 06/08 US UE: Superficial venous thrombosis of the bilateral upper extremities involving the cephalic veins. Deep veins are patent 06/08: Superficial venous thrombosis of the left lower extremity (left greater saphenous vein). No DVT of either lower ext. Lines: Right IJ CVP placed 06/09 Awaiting transfer to LTAC facility in [place]. precision crop manager is following. Level 3. Colette,Alaa MD Jun 19, 2017 08:01
[2017-06-19] MEDS ORDERED: DEXTROSE 50% IN WATER 50 ML VIAL(D50) IV PUSH PRN (08:15)
[2017-06-19] MEDS ORDERED: GLUCAGON 1 MG/ML VIAL OTHER PRN (08:15)
[2017-06-19] MEDS: COLLAGENASE OINT 30 GM TUBE TOPICAL SCH ×2 (09:00→09:39)
[2017-06-19] MEDS: FAMOTIDINE 20 MG/2 ML VIAL IV PUSH SCH ×2 (09:37→22:35)
[2017-06-19] MEDS: levETIRAcetam INJ 750 MG in SODIUM CHLORIDE 0.9% INJ 100 ML IV SCH ×2 (09:37→22:34)
[2017-06-19] MEDS: SODIUM CHLORIDE 0.9% FLUSH 10 ML FLUSH IV FLUSH SCH ×2 (09:37→22:35)
[2017-06-19] MEDS: CARVEDILOL 6.25 MG TAB PO SCH ×2 (09:38→22:36)
[2017-06-19] MEDS: DOCUSATE SODIUM 50 MG/SENNA 8.6 MG TAB PO SCH ×2 (09:38→21:00)
[2017-06-19] MEDS: MODAFINIL 200 MG TAB PO SCH (09:38)
[2017-06-19] MEDS: INSULIN DETEMIR 100 UNITS/ML VIAL SQ SCH ×2 (09:38→22:36)
[2017-06-19] MEDS: FLUCONAZOLE 100 MG TAB PO SCH (09:38)
[2017-06-19] MEDS: ASPIRIN 325 MG TAB PO SCH (09:38)
[2017-06-19] MEDS: NYSTATIN 100,000 U/GM PWD 15 GM BTL TOPICAL SCH ×2 (09:39→22:36)
[2017-06-19] MEDS: FUROSEMIDE 20 MG/2 ML VIAL IV PUSH SCH ×2 (11:50→22:37)
--- NOTE | 2017-06-19 17:55 | HHI.PR ---
Subjective Remarks 66 YOObese WF with Hypercapnoea, Cellulitis, Bactremia Intubated Off sedation No Fever On PRVC,AC Plans underway for Tr to [place] Objective Vital Signs Vital Signs Date Time Temp Pulse Resp B/P (MAP) Pulse Ox O2 Delivery O2 Flow Rate FiO2 06/19/17 16:00 35 06/19/17 15:30 99 35 06/19/17 14:00 80 06/19/17 12:14 100 35 06/19/17 12:00 98.6 78 16 133/60 (84) 97 06/19/17 12:00 35 06/19/17 12:00 78 06/19/17 10:00 82 06/19/17 08:00 35 06/19/17 08:00 84 06/19/17 08:00 98.9 84 16 141/64 (89) 100 06/19/17 07:40 100 35 06/19/17 06:00 84 06/19/17 04:25 99 35 06/19/17 04:00 35 06/19/17 04:00 82 06/19/17 04:00 99.8 82 18 124/56 (78) 97 06/19/17 02:00 79 06/19/17 01:09 96 35 06/19/17 00:00 35 06/19/17 00:00 99.7 79 20 114/53 (73) 96 06/19/17 00:00 79 06/18/17 22:38 100 35 06/18/17 22:00 80 06/18/17 20:20 94 35 06/18/17 20:00 99.5 79 16 153/68 (96) 100 06/18/17 20:00 35 06/18/17 20:00 79 06/18/17 18:00 77 I/O 06/18/17 06/18/17 06/18/17 06/19/17 06/19/17 06/19/17 07:00 15:00 23:00 07:00 15:00 23:00 Intake Total 220 ml 107.5 ml 545.5 ml 439 ml 107.5 ml 100 ml Output Total 575 ml 1150 ml 500 ml Balance -355 ml 107.5 ml -604.5 ml -61 ml 107.5 ml 100 ml IV Total 100 ml 107.5 ml 207.5 ml 100 ml 107.5 ml 100 ml Tube Feeding 198 ml 279 ml Tube Irrigant 140 ml Other 120 ml 60 ml Output Urine Total 475 ml 850 ml 300 ml Stool Total 100 ml 300 ml 200 ml Result Diagram: 06/19/1732506/19/17325 Objective Remarks GENERAL: Morbidly obese WF, mild sob SKIN: Warm and dry. HEAD: Normocephalic. EYES: No scleral icterus. No injection or drainage. NECK: Supple, trachea midline. No JVD or lymphadenopathy. CARDIOVASCULAR: Regular rate and rhythm without murmurs, gallops, or rubs. RESPIRATORY: Breath sounds equal bilaterally. No accessory muscle use. GASTROINTESTINAL: Abdomen soft, non-tender, nondistended. MUSCULOSKELETAL: No cyanosis, or edema. has swelling and redness of legs BACK: Nontender without obvious deformity. No CVA tenderness. A/P Assessment and Plan Hypercapnoic Resp Insuff CHE or Obesity Hypoventilation synd Cellulitis legs Bactremia back pain Sepsis Encephalopathy PLAN: Vent Support Aerosol nebs Wean 02 to keep sat 88-92% Abx per ID Daily CPAP trial. DC plans underway for tr to [facility] Nuñez Arjun Dev MD Jun 19, 2017 17:55
[2017-06-19] MEDS: RESP: ALBUTEROL 2.5 MG/IPRATROPIUM 0.5 MG NEB (PRN) NEB (20:40)
[2017-06-20] VITALS (8 sets, daily range): BP systolic 132–151; BP diastolic 59–66; PULSE 86–90; RESP 16–23; TEMP 99.2–102; O2SAT 93–96
[2017-06-20] MEDS: INSULIN NovoLIN REGULAR SUPPLEMENTAL SCALE SQ SCH ×3 (00:15→08:12)
[2017-06-20] MEDS: ACETAMINOPHEN 1000 MG/100 ML VIAL IV PRN (00:54)
[2017-06-20] MEDS: CHLORHEXIDINE GLUCONATE 2 % 1 PACK (2 CLOTHS) TOP SCH (01:34)
[2017-06-20] MEDS: cefTRIAXone INJ 2,000 MG in SODIUM CHLORIDE 0.9% INJ 100 ML IV SCH (05:07)
[2017-06-20] MEDS: LEVOTHYROXINE SODIUM 100 MCG VIAL IV PUSH SCH (05:07)
[2017-06-20] MEDS: HEPARIN SODIUM - SQ 10,000 UNITS/ML VIAL SQ SCH (05:08)
[2017-06-20 06:28] LABS: AUTOMATED NEUTROPHIL # 2.8 TH/MM3 (1.8-7.7); BASOPHIL # 0.2 TH/MM3 (0-0.2); BASOPHIL % 3.9 % (0.0-2.0); EOSINOPHIL # 0.3 TH/MM3 (0-0.4); EOSINOPHIL % 5.6 % (0.0-4.0); HEMATOCRIT 29.9 % (35.0-46.0); LYMPH % 30.9 % (9.0-44.0); LYMPHOCYTE # 1.9 TH/MM3 (1.0-4.8); MEAN CELL VOLUME 101.8 FL (80.0-100.0); MEAN CORPUSCULAR HEMOGLOBIN 32.5 PG (27.0-34.0); MEAN CORPUSCULAR HGB CONC 31.9 % (32.0-36.0); MONO % 15.6 % (0.0-8.0); PLATELET COUNT 155 TH/MM3 (150-450); RED BLOOD COUNT 2.94 MIL/MM3 (4.00-5.30); RED CELL DISTRIBUTION WIDTH 22.5 % (11.6-17.2); WHITE BLOOD COUNT 6.3 TH/MM3 (4.0-11.0)
[2017-06-20 06:31] LABS: HEMO FLAGS AUTO DIFF
[2017-06-20] MEDS: AMANTADINE HCL SOLN 100 MG/10 ML UDC PO SCH (06:31)
[2017-06-20 06:42] LABS: ALKALINE PHOSPHATASE 380 U/L (45-117); TOTAL BILIRUBIN ADULT 0.6 MG/DL (0.2-1.0)
[2017-06-20 06:45] LABS: ANION GAP 9 MEQ/L (5-15); BICARBONATE 32.3 MEQ/L (21.0-32.0); BLOOD UREA NITROGEN 15 MG/DL (7-18); CHLORIDE 98 MEQ/L (98-107); GLOMERULAR FILTRATION RATE 64 ML/MIN (>89); MAGNESIUM 1.6 MG/DL (1.5-2.5); POTASSIUM 4.3 MEQ/L (3.5-5.1); SODIUM (NA) 139 MEQ/L (136-145)
[2017-06-20 07:18] LABS: ALT (GPT) 16 U/L (10-53); AST (GOT) 65 U/L (15-37)
--- NOTE | 2017-06-20 07:22 | HHI.CCPN ---
Subjective Remarks/Hospital Course 66-year-old female presents confused and lethargic. Patient reportedly was recently seen today at an urgent care and received an injection for low back pain. Patient here denies headaches, chest pain or shortness of breath, abdominal pain or extremity pain. Patient does complain of low back pain. at bedside states that they're visiting from out of state for the past 3 months and will be returning back to their home state in a week. reports patient has chronic low back pain but this exacerbated over the last 24 hours starting yesterday morning. Patient was seen earlier today by her chiropractor for an adjustment and then was referred to an urgent care. Patient reportedly had a fever at the chiropractor's office and felt cold and clammy. At the urgent care patient was evaluated and reportedly had an injection of a nonsteroidal medication as she is diabetic and he did not want to give her a steroid injection. Patient went home about 1:00 PM she was drowsy so sat down in a chair and fell asleep according to the . He tried to awaken her at 4:30 and noticed that she was confusional and lethargic. He attempted to continue to awaken her over the next 2-3 hours and because she was not improving decided finally to call EMS to transport her to the emergency room. Patient and spouse denied any recent injury or fall. Patient was ambulatory this morning but this evening has difficulty elevating her lower extremities as well as she was generally extremely weak. 05/21 Patient is on BIPAP 12/5 with 45% FIO2. Afebrile. Awake. Renal function is improving with Cr: 1.87 from 2.74. 05/22 No events overnight. Patient is more awake and alert off BIPAP. Renal function is improving with Cr: 1.07 from 1.87. delayed note entry. consulted and seen at ~1500. RECONSULT NOTE: 05/30: reconsulted for worsening hypoxemia. now on 6L facemask. please refer to prior consult note for detailed medical history. In brief, 66yF lethargic female, back pain after injection, ? discitis/osteo, on abx for group B strep, worsening fever, tachycardia, tachypnea, o2 requirement to 6L facemask and RR up to 40s. patient unable to provide additional history but does appear in distress. 05/31: Patient remains encephalopathic, on high flow O2 via nasal cannula, this morning was on 60 L/m 55% FiO2. Subsequently has dropped to 30 L/m to extubate percent FiO2. Given 80 mg IV Lasix with no response. Subsequently given Bumex 2 mg IV push and started on Bumex drip at 1 mg/h to attempt to diurese in an effort to improve respiratory status however has not had any increase in urine output with Bumex drip. Creatinine came back elevated at 2.13. Suspect acute kidney injury/ATN which may be a reason for poor response to diuretics. She also spiked a temperature of 103 for which IV Ofirmev was ordered. 06/01: intubated overnight and hypotensive requiring vasopressors. now remains in shock on 2 vasopressors. bedside critical care echo demonstrates hyperdynamic LV with completely collapsed IVC. gave 2L bolus and started on mivf @ 100 cc/hr. still spiking fevers. discussed with Dr. Portillo and plan to repeat LP as well as cultures and imaging to look for source. clinically worse today. 06/02: off vasopressors. remains intubated and sedated, very encephalopathic. MRI with new punctate strokes. STEVEN being done today. also ? abscess in the pelvis of unknown origin, maybe contained diverticulitis? CT guided drainage. although some improvements in hemodynamics, no improvements in vent or encephalopathy. off pathway. 06/03: IR re-ct scan without any evidence of abdominal abscess. blood glucose still not controlled despite high dose algorithm. wbc downtrending. 06/04: wbc continues to downtrend. Cr improving as well. very hypokalemic despite aggressive replacement. blood glucose now < 200, but using high dose insulin drip and levemir. encephalopathy persists. 06/05: clinically improving. weakly following commands this morning. renal function improved. EEG negative for seizures. still too sleepy for safe extubation, but improved from yesterday. 06/06: continues to improve. still weakly following commands. failing SBT- on 20 of PSV with small tidal volumes and very tachypneic. slightly more awake, but still not awake enough for safe extubation. 06/07: Currently tolerating CPAP 15 PSV. Opens eyes tracks. Weekly follows commands on the lower extremity but delayed response. Remains off all sedation approximately 36 hours now. is at the bedside updated 06/08: Fever 100.8, WBC 15.4. But slightly more awake and focussed today. Wiggles toes to command with a delay. CXR shows moderate effusion- plan for CT guided thoracentesis today. D/W IR Dr. Quintanilla and ID Dr. Portillo 06/09: Appears to be becoming more septic. Tmax 101.8. WBC count 14.8 with 21 % bands. Zyvox and cefepime started by Dr. Portillo. Chest CT yesterday showed bilateral dense consolidation at the bases left more than right. Moderate to thick secretion on bronchoscopy and bilateral lower lobes today. Bilateral airways inflamed and friable. New fever, sepsis most likely secondary to healthcare associated pneumonia. s/p right thoracentesis with 225 ml of fluid removed, exudative by light criteria. Hemorrhagic fluid. EEG 06/08 showed moderate encephalopathy, no seizures 06/10: Continues to spike fever up to 101.6. White count stable at 14.7. Had bronchoscopy with thick secretions removed from bilateral lower lobes yesterday. BAL studies are pending. Tolerate CPAP with high pressure support. Chest x-ray slightly improved 06/11: Continues to spike fever overnight fever up to 103. Cultures remain negative except for Marco Antonio UTI. Appears more lethargic. Not able to extubate due to mental status. Will request general surgery consult for tracheostomy, and GI for PEG placement 06/12: Still spiking fever 101.3 overnight, all recent culture and BAL negative. Slightly more awake, but very delayed in following commands. General surgery Dr. Hernandez will trach in OR tomorrow. Creat slightly improved. 06/13: Remains orally intubated on mechanical ventilation. Has spontaneous eye opening and tracks. Off all sedation for 4 days. Awaiting tracheostomy 06/14: Underwent tracheostomy and PEG tube placement on 06/13 tolerated procedures well. Patient remains on mechanical ventilation via tracheostomy this morning and is awake and alert. Follows some commands per nursing staff and at bedside. 06/15: Remains on mechanical ventilation via tracheostomy. Tolerating tube feeds via PEG. Awake, tracks. 06/16 No events overnight. On Insulin drip 16u/hr. On ventilator via trach. On no sedation. T:100.8 last night. 06/17 No events overnight. T:100.4 yesterday. Remains on insulin drip 16u/hr. 06/18 Patient remains on ventilator via trach. TF held on insulin drip down to 5u/hr. T:100.1 last night. 06/19 Patient is off insulin drip, tolerated CPAP trials x 7 hrs yesterday. T: 99.8 06/20 No events overnight. Remains on ventilator via trach. For discharge to [facility] in [place] this morning. Objective Vital Signs Date Time Temp Pulse Resp B/P (MAP) Pulse Ox O2 Delivery O2 Flow Rate FiO2 06/20/17 06:00 87 06/20/17 04:20 96 35 06/20/17 04:00 100.2 23 142/66 (91) Intake and Output 06/20/17 06/20/17 06/21/17 08:00 16:00 00:00 Intake Total 715 ml Output Total 1300 ml Balance -585 ml Result Diagram: 06/20/17 0515 06/19/17 0326 Other Results Laboratory Tests Test 06/20/17 05:15 White Blood Count 6.3 TH/MM3 Red Blood Count 2.94 MIL/MM3 Hemoglobin 9.5 GM/DL Hematocrit 29.9 % Mean Corpuscular Volume 101.8 FL Mean Corpuscular Hemoglobin 32.5 PG Mean Corpuscular Hemoglobin Concent 31.9 % Red Cell Distribution Width 22.5 % Platelet Count 155 TH/MM3 Mean Platelet Volume 11.7 FL Neutrophils (%) (Auto) 44.0 % Lymphocytes (%) (Auto) 30.9 % Monocytes (%) (Auto) 15.6 % Eosinophils (%) (Auto) 5.6 % Basophils (%) (Auto) 3.9 % Neutrophils # (Auto) 2.8 TH/MM3 Lymphocytes # (Auto) 1.9 TH/MM3 Monocytes # (Auto) 1.0 TH/MM3 Eosinophils # (Auto) 0.3 TH/MM3 Basophils # (Auto) 0.2 TH/MM3 CBC Comment AUTO DIFF Blood Urea Nitrogen 15 MG/DL Creatinine 0.88 MG/DL Random Glucose 334 MG/DL Total Protein 6.2 GM/DL Albumin 1.4 GM/DL Calcium Level 8.9 MG/DL Phosphorus Level 2.2 MG/DL Magnesium Level 1.6 MG/DL Alkaline Phosphatase 380 U/L Aspartate Amino Transf (AST/SGOT) 65 U/L Alanine Aminotransferase (ALT/SGPT) 16 U/L Total Bilirubin 0.6 MG/DL Sodium Level 139 MEQ/L Potassium Level 4.3 MEQ/L Chloride Level 98 MEQ/L Carbon Dioxide Level 32.3 MEQ/L Anion Gap 9 MEQ/L Estimat Glomerular Filtration Rate 64 ML/MIN Imaging Last Impressions Chest X-Ray 06/16/17 Signed Impressions: Service Date/Time: Friday, June 16, 2017 09:06 - CONCLUSION: Unchanged cardiomegaly with bilateral pleural effusions and bibasilar infiltrates. Ang Campbell Jr., MD Upper Extremity Ultrasound 06/08/17 Signed Impressions: Service Date/Time: May 10:45 - CONCLUSION: Superficial venous thrombosis of the bilateral upper extremities involving the cephalic veins. Deep veins are patent. Santana Eric MD Thoracentesis 06/08/17 Signed Impressions: Service Date/Time: May 14:49 - CONCLUSION: Uncomplicated CT-guided right thoracentesis with removal of 225 cc of fluid. Please note that most of the chest x-ray opacity actually represents right lower lobe airspace consolidation. Santana Shirley MD Lower Extremity Ultrasound 06/08/17 Signed Impressions: Service Date/Time: May 11:01 - CONCLUSION: Superficial venous thrombosis of the left lower extremity (left greater saphenous vein). No DVT of either lower chroni. Santana Eric MD Carotid Artery Ultrasound 06/08/17 Signed Impressions: Service Date/Time: May 10:29 - CONCLUSION: Minimal atherosclerotic plaque of the left carotid bifurcation. Otherwise normal. No significant narrowing. Santana Eric MD Lumbar Spine MRI 06/03/17 Signed Impressions: Service Date/Time: Saturday, June 03, 2017 15:42 - CONCLUSION: The MRI findings after contrast administration are not convincing for presence of active infection within the L3/L4 disc, adjacent vertebral bodies or epidural space/adjacent soft tissues. Santana Eric MD Pelvis CT 06/02/17 Signed Impressions: Service Date/Time: Friday, June 02, 2017 17:29 - CONCLUSION: No evidence of intra-abdominal abscess collection. Nikita Damon MD Abdomen X-Ray 06/02/17 Signed Impressions: Service Date/Time: Friday, June 02, 2017 15:20 - CONCLUSION: OG tube in the stomach. Mike Davis MD FACR Chest CT 06/01/17 Signed Impressions: Service Date/Time: May 18:49 - CONCLUSION: 1. Dense consolidation in both posterior lower lobes right greater than left with air bronchograms. This could represent pneumonia. 2. Small bilateral pleural effusions. 3. Mild cardiomegaly. Austin Orellana MD Brain MRI 06/01/17 Signed Impressions: Service Date/Time: May 19:15 - CONCLUSION: 1. Multiple new small scattered punctate areas of restricted diffusion consistent with small areas of infarction. This could be secondary to emboli. 2. No acute hemorrhage or mass effect. 3. Acute sinusitis in the ethmoidal air cells and sphenoid sinus with air fluid levels. Austin Orellana MD Abdomen/Pelvis CT 06/01/17 Signed Impressions: Service Date/Time: May 18:49 - CONCLUSION: 1. Suboptimal opacification of the bowel with the distal small bowel unopacified. There is a questionable abnormal gas collection in the anterior lower pelvis. An abscess is not excluded. A repeat study is recommended after additional oral contrast is given. 2. Consolidation in both posterior lung bases with small pleural effusions. Austin Orellana MD Renal Ultrasound 05/31/17 Signed Impressions: Service Date/Time: Wednesday, May 31, 2017 20:47 - CONCLUSION: 1. Suboptimal exam with visualization. 2. No evidence of hydronephrosis. 3. Cyst extending off right kidney. Austin Orellana MD Tumor Localization 05/26/17 0000 Signed Impressions: Service Date/Time: Friday, May 26, 2017 13:36 - CONCLUSION: No abnormal uptake identified to suggest infection. Nikita Damon MD Lumbar Puncture Fluoroscopy 05/25/17 0000 Signed Impressions: Service Date/Time: April 17:41 - CONCLUSION: Uncomplicated fluoroscopically guided lumbar puncture with pressures as above. Shoaib Davis MD Liver Ultrasound 05/21/17 0000 Signed Impressions: Service Date/Time: Sunday, May 21, 2017 10:32 - CONCLUSION: 1. Hepatic steatosis. 2. Gallstones 3. Limited evaluation of the right kidney. Santana Lamar MD Head CT [id number] Signed Impressions: Service Date/Time: Saturday, May 20, 2017 19:55 - CONCLUSION: 1. No acute findings. Retention cyst right maxillary sinus. Jakob Scruggs MD Objective Remarks GENERAL: Patient is 66 yo lying in bed, off all sedation, SKIN: Warm and dry. HEAD: Normocephalic. EYES: No scleral icterus. No injection or drainage. NECK: Tracheostomy in place. LIJ central line in place CARDIOVASCULAR: S1-S2 regular, no gallop or murmur RESPIRATORY: On mechanical ventilation via tracheostomy, PS+14, PEEP+8, fio2 40% , coarse breath sounds bilaterally, no wheezing GASTROINTESTINAL: Abdomen morbidly obese, soft, non-tender, nondistended. MSK: No cyanosis, or edema. NEURO: Opens eyes to command. Weakly follows commands in lower extremity, delayed response. Localizes with UE Procedures None Date of Insertion: May 25, 2017 A/P Assessment and Plan Plan: Neuro: Metabolic Encephalopathy- slight improvement. Acute CVA, multifocal areas of ischemia Possible EPIC PROFESSIONAL Infection Discitis - MRI brain06/01 diffuse areas of small infarcts, possibly embolic - Off all sedating medications. - Received Versed fentanyl and rocuronium for bronchoscopy 06/09/17, off all sedation - Continue amantadine and, modafinil for wakefulness. - frequent neuro checks, continue aspirin, Keppra - Prev TSH borderline high, T4 low. Continue Synthroid 25 mcg IV daily started 06/08/17. - Ammonia normal. B12 normal - EEG 06/08 moderate encephalopathy, carotid ultrasound no significant stenosis - Consult neuropsychology for encephalopathy. Resp: Acute hypoxic and hypercarbic respiratory failure - persistent. Right pleural effusion Bibasilar infiltrates/HCAP -s/p Bronchoscopy showed inflamed airways, thick secretion bilateral lower lobes. - Continue with vent support keep sat >92% -Bronchodilators, pulm toilet, trach care - Underwent tracheostomy 06/13. 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 - Right thoracentesis with fluid studies-exudative effusion, cultures neg Renal: Acute kidney injury- resolved -Monitor renal function, electrolytes replacement per protocol. on Lasix 20mg IV BID FEN/GI: Elevated LFT's Morbid obesity dAcute protein calorie malnutrition- moderate Cholelithiasis - GI consulted -patient underwent PEG tube placement on 06/13 -Continue tube feeds- Glucerna 1.5 advance to goal rate @60ml/hr. -Monitor LFT's ( trending down) -05/21 US abdomen: Hepatic steatosis. Gallstones ID: New Fever ? drug related Possible HCAP marco antonio UTI Septic Shock - resolved Discitis Strep bacteremia (recent blood cultures negative) - abx per ID Dr. Portillo. On ceftriaxone, fluconazole. Follow up Urine cx from 06/18 : Yeast - Bronch with BAL 06/09/17. Follow up on studies - cultures NGTD except initial 4/4 bottles with group B strp. - There is clinical concern for endocarditis (4/4 bottle strep, brain emboli delfino though STEVEN negative) Endocrine: Hyperglycemia Relative Adrenal Insufficiency Possible hyperthyroidism -Off insulin drip, increase SSI (High scale) -Will hold Levemir as tube feeds will be held during transfer. - On levothyroxine 25 g daily Prophylaxis: - Pepcid - SCDs, Heparin SQ 06/08 US UE: Superficial venous thrombosis of the bilateral upper extremities involving the cephalic veins. Deep veins are patent 06/08: Superficial venous thrombosis of the left lower extremity (left greater saphenous vein). No DVT of either lower ext. Lines: Right IJ CVP placed 06/09 For transfer to LTAC facility in [place]. this morning. Level 1 Vero Alvarenga MD Jun 20, 2017 07:22
[2017-06-20] MEDS: SODIUM CHLORIDE 0.9% FLUSH 10 ML FLUSH IV FLUSH SCH (08:10)
[2017-06-20] MEDS: FLUCONAZOLE 100 MG TAB PO SCH (08:10)
[2017-06-20] MEDS: levETIRAcetam INJ 750 MG in SODIUM CHLORIDE 0.9% INJ 100 ML IV SCH (08:10)
[2017-06-20] MEDS: CARVEDILOL 6.25 MG TAB PO SCH (08:10)
[2017-06-20] MEDS: MODAFINIL 200 MG TAB PO SCH (08:11)
[2017-06-20] MEDS: ASPIRIN 325 MG TAB PO SCH (08:11)
[2017-06-20 08:53] LABS: BANDS 6 % (0-6); BASOPHILS 1 % (0-2); EOSINOPHILS 4 % (0-4); METAMYELOCYTES 1 % (0-1); MYELOCYTES 2 % (0-0); PLATELET ESTIMATE SMEAR NORMAL (NORMAL); PLATELET MORPHOLOGY NORMAL (NORMAL); POLYS (SEG NEUTROPHILS) 54 % (16-70); SCAN/DIFF FINAL DIFF MANUAL; WBC DIFF SAMPLE 100
[2017-06-20 08:54] LABS: TEARDROP RBCS 1+ (NORMAL)
[2017-06-20 08:55] LABS: POLYCHROMASIA 2.6 % (0.0-1.9)
[2017-06-20] MEDS ORDERED: EPIN1INJ21 SQ (09:35)
[2017-06-20] MEDS ORDERED: SOLU250I IV PUSH (09:35)
[2017-06-20] MEDS ORDERED: EPIN1INJ21 IV PUSH (09:35)
[2017-06-20] MEDS ORDERED: CEFT2INJ2 IV (09:35)
[2017-06-20] MEDS ORDERED: FLUC100T2 PO (09:37)
--- NOTE | 2017-06-20 09:41 | HHI.FF ---
Infusion Therapy Location of Infusion Therapy: [facility] Infusion Therapy Order ([facility]) Patient Information Appointment Date: Jun 20, 2017 Patient Weight 130.5 kg Diagnosis: Diagnosis Strep endocarditis. 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 Lumbar discitis. Coded Allergies: No Known Allergies (Unverified , 05/20/17) Administer Medication Ceftriaxone 2 grams IV q 12 hours Start Treatment: Jun 20, 2017 Stop Treatment: Jul 11, 2017 Additional Information Venous access: Other (central line ) Additional Instructions [x] Peripheral flush and dressing changes per protocol [x] Implanted port and central belt line feeder: * Implanted port: 10 ml Normal Saline followed by 5 ml Heparin 100 units/ml Heparin flush after each use and monthly to maintain. [] May leave port accessed during therapy. [] May leave peripheral site accessed for duration of therapy. [x] If patient has SOB or respiratory distress, check oxygen saturation. If less than 90% or clinical signs of respiratory distress, administer oxygen at 2 L/min. via nasal cannula and notify physician. [x] Anaphylaxis/Reaction orders: * Stop infusion. * Keep IV line open with saline flush. * Notify physician. * Monitor vital signs every 15 minutes until symptoms resolve. * Check Oxygen saturation; Oxygen at 2 L/min. via nasal cannula if less than 90% or clinical signs of respiratory distress. * Administer diphenhydramine (Benadryl) 25 mg IV STAT, (unless patient has received as pre-med). May repeat once, if necessary. * Solu-Cortef 250 mg IVP over 30-60 seconds, use 100 mg vials for each dissolution. * Epinephrine (1mg/1 ml) 0.3 mg subcutaneously or IVP now with any signs of respiratory distress. * Check with physician for new additional pre-med orders if patient is re- challenged or re-treated. [x] May remove PICC line when treatment complete, after confirming with Physician. [x] If the patient is admitted to the hospital, the ED, or transferred via [facility] , complete transfer form including medication reconciliation order sheet. Laboratory Tests Weekly Labs: CBC w/diff, Creatinine, CRP, LFT's (Hepatic function test) Additional Information Please draw weekly labs and notify primary MD as well as Infectious Disease MD at SNF/LTAC. Also Call with abnormals, change in clinical condition or problems to them. Nan Portillo MD Jun 20, 2017 09:41
--- NOTE | 2017-06-20 10:39 | HHI.PR ---
Addendum to Inpatient Note Addendum Reason: Additional Documentation Additional Information Discharge orders written and [facility] CM to fax them to facility. Will sign off please call back if any change in clinical condition or questions. Nan Portillo MD Jun 20, 2017 10:39
== END 2017-06-20 10:23 | DRG 4 ==
LOC: NEPC 18:59 → NEDA 21:46 → HIMW 23:20 → N05A 05-23 23:31 → HIME 05-26 12:40
PROVIDERS: ADMIT Internal Medicine Critical Care Medicine; ATTEND Internal Medicine Critical Care Medicine
PROC: 009U3ZX Drainage of Spinal Canal, Percutaneous Approach, Diagnostic (ICD-10-PCS; principal; 2017-05-25)
PROC: 0BH18EZ Insertion of Endotracheal Airway into Trachea, Via Natural or Artificial Opening Endoscopic (ICD-10-PCS; 2017-05-31)
PROC: 5A1955Z Respiratory Ventilation, Greater than 96 Consecutive Hours (ICD-10-PCS; 2017-05-31)
PROC: 02HV33Z Insertion of Infusion Device into Superior Vena Cava, Percutaneous Approach (ICD-10-PCS; 2017-05-31)
PROC: 0W993ZX Drainage of Right Pleural Cavity, Percutaneous Approach, Diagnostic (ICD-10-PCS; 2017-06-08)
PROC: 02HV33Z Insertion of Infusion Device into Superior Vena Cava, Percutaneous Approach (ICD-10-PCS; 2017-06-09)
PROC: 0BDB8ZX Extraction of Left Lower Lobe Bronchus, Via Natural or Artificial Opening Endoscopic, Diagnostic (ICD-10-PCS; 2017-06-09)
PROC: 0BD68ZX Extraction of Right Lower Lobe Bronchus, Via Natural or Artificial Opening Endoscopic, Diagnostic (ICD-10-PCS; 2017-06-09)
PROC: 0DH63UZ Insertion of Feeding Device into Stomach, Percutaneous Approach (ICD-10-PCS; 2017-06-13)
PROC: 0B113F4 Bypass Trachea to Cutaneous with Tracheostomy Device, Percutaneous Approach (ICD-10-PCS; 2017-06-13 12:36)
PROC: 5A1955Z Respiratory Ventilation, Greater than 96 Consecutive Hours (ICD-10-PCS; 2017-06-13 12:36)
DX: A40.1 Sepsis due to streptococcus, group B (principal); N17.0 Acute kidney failure with tubular necrosis; K72.00 Acute and subacute hepatic failure without coma; I63.40 Cerebral infarction due to embolism of unspecified cerebral artery; I26.90 Septic pulmonary embolism without acute cor pulmonale; G93.41 Metabolic encephalopathy; J69.0 Pneumonitis due to inhalation of food and vomit; I33.0 Acute and subacute infective endocarditis; J90 Pleural effusion, not elsewhere classified; R65.21 Severe sepsis with septic shock; J96.01 Acute respiratory failure with hypoxia; J96.02 Acute respiratory failure with hypercapnia; G03.9 Meningitis, unspecified; G62.81 Critical illness polyneuropathy; L03.115 Cellulitis of right lower limb; Z68.42 Body mass index [BMI] 45.0-49.9, adult; E66.2 Morbid (severe) obesity with alveolar hypoventilation; L03.116 Cellulitis of left lower limb; N17.9 Acute kidney failure, unspecified; E27.40 Unspecified adrenocortical insufficiency; E44.0 Moderate protein-calorie malnutrition; I76 Septic arterial embolism; I82.613 Acute embolism and thrombosis of superficial veins of upper extremity, bilateral; I82.813 Embolism and thrombosis of superficial veins of lower extremities, bilateral; B37.49 Other urogenital candidiasis; T83.511A Infection and inflammatory reaction due to indwelling urethral catheter, initial encounter; L89.150 Pressure ulcer of sacral region, unstageable; E11.65 Type 2 diabetes mellitus with hyperglycemia; M46.40 Discitis, unspecified, site unspecified; D69.6 Thrombocytopenia, unspecified; G47.33 Obstructive sleep apnea (adult) (pediatric); E78.5 Hyperlipidemia, unspecified; G89.29 Other chronic pain; R60.0 Localized edema; R56.9 Unspecified convulsions; Y95 Nosocomial condition; D64.9 Anemia, unspecified; E87.5 Hyperkalemia; E87.6 Hypokalemia; E86.9 Volume depletion, unspecified; B95.1 Streptococcus, group B, as the cause of diseases classified elsewhere; K80.20 Calculus of gallbladder without cholecystitis without obstruction; Y84.6 Urinary catheterization as the cause of abnormal reaction of the patient, or of later complication, without mention of misadventure at the time of the procedure; L98.8 Other specified disorders of the skin and subcutaneous tissue; L89.320 Pressure ulcer of left buttock, unstageable; L89.310 Pressure ulcer of right buttock, unstageable; E86.0 Dehydration; K59.00 Constipation, unspecified; E03.9 Hypothyroidism, unspecified; Z79.4 Long term (current) use of insulin
CPT/HCPCS: 31500; 31624; 32555; 36556; 36600; 36620; 51702; 62270; 70450; 70551; 70553; 71010; 71250; 72148; 72158; 72192; 74000; 74176; 76705; 76775; 76937; 77003; 78806; 80048; 80053; 80061; 80076; 80185; 80202; 80307; 81001; 82010; 82140; 82150; 82438; 82533; 82550; 82552; 82570; 82607; 82805; 82945; 82948; 83036; 83605; 83615; 83735; 83880; 83986; 84100; 84132; 84155; 84157; 84300; 84439; 84443; 84481; 84484; 85007; 85027; 85610; 85730; 86140; 86403; 87015; 87040; 87070; 87086; 87102; 87103; 87106; 87116; 87205; 87206; 87493; 87529; 87641; 88305; 89051; 93005; 93306; 93312; 93320; 93325; 93880; 93970; 94002; 94003; 94060; 94640; 94664; 95819; 96361; 96365; 96367; J1170; A7521; A9569; A9577; A9579; C1729; J0131; J0330; J0456; J0610; J0692; J0695; J0696; J1120; J1165; J1644; J1720; J1815; J1817; J1940; J1953; J1956; J2020; J2248; J2250; J2270; J2370; J2543; J2930; J2997; J3010; J3370; J3475; J3480; J7030; J7040; J7050; J7120; P9047; Q9963